=== PATIENT | female | born 1995 | race Caucasian/White ===

== ENCOUNTER 2023-07-12 07:41 | Outpatient (OUT) | payer OTHER, SELFPAY ==
[2023-07-12 08:09] LABS: Basophils Absolute Auto 0.1 10^3/uL (0.0-0.1); Basophils Percent Auto 0.9 % (0.2-2.0); Eosinophils Absolute Auto 0.2 10^3/uL (0.0-0.7); Eosinophils Percent Auto 2.7 % (0.9-7.0); Hematocrit 42.7 % (36.0-48.0); Hemoglobin 13.8 g/dL (12.0-16.0); Immature Granulocytes Abs Auto 0.04 10^3/uL (0.00-0.03); Immature Granulocytes Pct Auto 0.5 % (0.0-0.5); Lymphocytes Absolute Auto 2.6 10^3/uL (1.2-3.8); Lymphocytes Percent Auto 32.8 % (20.5-60.0); Mean Corpuscular HGB Conc 32.3 g/dL (29.9-35.2); Mean Corpuscular Volume 86.6 fL (81.0-99.0); Mean Platelet Volume 10.4 fL (9.5-13.5); Monocytes Absolute Auto 0.5 10^3/uL (0.3-0.8); Monocytes Percent Auto 6.7 % (1.7-12.0); Neutrophils Absolute Auto 4.5 10^3/uL (1.4-6.5); Neutrophils Percent Auto 56.4 % (43.0-75.0); Platelet Count 255 10^3/uL (150-450); Red Blood Count 4.93 10^6/uL (4.20-5.40); Red Cell Distribution Width 12.8 % (11.0-15.0)
[2023-07-12 09:28] LABS: Alanine Aminotransferase 21 U/L (14-59); Albumin Globulin Ratio 1.2; Albumin Level 3.9 g/dL (3.4-5.0); Alkaline Phosphatase 55 U/L (46-116); Anion Gap 11.8; Aspartate Amino Transferase 9 U/L (15-37); BUN Creatinine Ratio 21.1; Carbon Dioxide 26.3 mmol/L (21.0-32.0); Chloride 104 mmol/L (98-107); Estimated GFR (African America >60 (>=60); Estimated GFR (Non-African Ame >60 (>=60); Globulin 3.3 g/dL; Glucose 94 mg/dL (74-106); Potassium 4.1 mmol/L (3.5-5.1); Sodium 138 mmol/L (136-145); Thyroid Stimulating Hormone 0.915 uIU/mL (0.358-3.740); Total Protein 7.2 g/dL (6.4-8.2)
[2023-07-18 18:07] LABS: DHEA, Serum 1067 ng/dL (31-701)
[2023-07-19 20:08] LABS: Copper Level 83 ug/dL (80-158)
[2023-07-20 00:08] LABS: Estrogens, Total 316 pg/mL (.)
[2023-07-20 10:12] LABS: Testosterone 51 ng/dL (13-71)
== END 2023-07-12 07:42 | disposition home or self-care (01) ==
LOC: LAB 07:44
PROVIDERS: PCP Radiology Diagnostic Radiology
DX: F41.9 Anxiety disorder, unspecified (principal); L68.0 Hirsutism; R63.5 Abnormal weight gain
CPT/HCPCS: 36415; 80053; 82525; 82533; 82626; 82672; 84144; 84402; 84403; 84443; 85025

== ENCOUNTER 2023-08-21 11:10 | Outpatient (OUT) | payer OTHER, SELFPAY | END 2023-08-21 11:11 | disposition home or self-care (01) | LOC: PST 11:12 | PROVIDERS: PCP Obstetrics & Gynecology; Visit Provider Obstetrics & Gynecology | DX: Z01.818 Encounter for other preprocedural examination (principal); Z30.2 Encounter for sterilization ==

== ENCOUNTER 2023-08-31 10:21 | Outpatient (OUT) | payer OTHER, SELFPAY ==
--- NOTE | 2023-08-31 | CT_ITS ---
[address] [address] Patient Name: JANAY OZUNA MRN: [id number] date: 1995 Sex: F Assigned Patient Location: CT Current Patient Location: Accession/Order Number: [id number] Exam Date: 08/31/2023 10:45 Report Date: 09/01/2023 01:59 At the request of: DULCE REYNOLDS Procedure: CT abdomen wo/w con EXAMINATION: CT abdomen wo/w con HISTORY: R79.89 ; elevated DHEA COMPARISON: No relevant comparison available. TECHNIQUE: Axial, Coronal, and Sagittal images were obtained without and/or with IV contrast as indicated by examination type. Dose reduction techniques were achieved by using automated exposure control and/or adjustment of mA and/or kV according to patient size and/or use of iterative reconstruction technique FINDINGS: LUNG BASES: No visible pulmonary or pleural disease. LIVER: No enlargement, atrophy, abnormal density, or significant focal lesion. BILIARY: No visible dilatation or calcification. PANCREAS: No lesion, fluid collection, ductal dilatation, or atrophy. SPLEEN: No enlargement or focal lesion. ADRENALS: No mass or enlargement. KIDNEYS: No mass, obstruction, or calcification. BOWEL/MESENTERY: No visible mass, obstruction, or bowel wall thickening. AORTA/VASCULAR: No aneurysm or dissection. RETROPERITONEUM: No mass or adenopathy. ABDOMINAL WALL: No mass or hernia. BONES: No bony lesion or fracture. OTHER: Negative. CT/CT abdomen wo/w con IMPRESSION: 1. Normal CT appearance of the adrenal glands. 2. No suspicious findings. Electronically authenticated by: DANAE WALKER Date: 09/01/2023 01:59
== END 2023-08-31 10:22 | disposition home or self-care (01) ==
LOC: CT 10:21
PROVIDERS: PCP Obstetrics & Gynecology; Visit Provider Internal Medicine
DX: R79.89 Other specified abnormal findings of blood chemistry (principal); E55.9 Vitamin D deficiency, unspecified; Z71.3 Dietary counseling and surveillance; L68.0 Hirsutism
CPT/HCPCS: 74170; Q9967

== ENCOUNTER 2023-09-04 09:05 | Day surgery (SDC) | payer OTHER, SELFPAY ==
[2023-08-21 11:40] VITALS: BP 111/66; PULSE 55; RESP 16; TEMP 36.3; O2SAT 98; BMI 32.6
[2023-09-04] VITALS (8 sets, daily range): BP systolic 113–132; BP diastolic 53–72; PULSE 56–78; RESP 12–20; TEMP 36.3–36.9; O2SAT 94–99; BMI 32.4
[2023-09-04 09:21] LABS: Basophils Absolute Auto 0.1 10^3/uL (0.0-0.1); Basophils Percent Auto 0.6 % (0.2-2.0); Eosinophils Absolute Auto 0.3 10^3/uL (0.0-0.7); Eosinophils Percent Auto 3.3 % (0.9-7.0); Hematocrit 42.5 % (36.0-48.0); Hemoglobin 13.6 g/dL (12.0-16.0); Immature Granulocytes Abs Auto 0.01 10^3/uL (0.00-0.03); Immature Granulocytes Pct Auto 0.1 % (0.0-0.5); Lymphocytes Absolute Auto 2.7 10^3/uL (1.2-3.8); Lymphocytes Percent Auto 31.3 % (20.5-60.0); Mean Corpuscular Hemoglobin 27.9 pg (26.7-34.0); Mean Corpuscular Volume 87.3 fL (81.0-99.0); Mean Platelet Volume 10.1 fL (9.5-13.5); Monocytes Absolute Auto 0.6 10^3/uL (0.3-0.8); Monocytes Percent Auto 7.3 % (1.7-12.0); Neutrophils Absolute Auto 4.9 10^3/uL (1.4-6.5); Neutrophils Percent Auto 57.4 % (43.0-75.0); Platelet Count 270 10^3/uL (150-450); Red Blood Count 4.87 10^6/uL (4.20-5.40); Red Cell Distribution Width 13.2 % (11.0-15.0); White Blood Count 8.6 10^3/uL (4.0-11.0)
[2023-09-04 09:36] LABS: HCG Quantitative <1 mIU/mL
[2023-09-04] MEDS: LACTATED RINGER'S SOLUTION 1,000 ML 50 ML IV ×2 (09:37→11:00)
--- NOTE | 2023-09-04 11:28 | PM.ONB ---
Brief Operative Note Date of procedure: 09/04/23 Pre-op diagnosis: desires permanent sterilization Post-op diagnosis: other (lt ovarian cyst) Procedure: NAME OF PROCEDURE: robot assisted bilateral laparoscopic salpingectomy with lt ovarian cystectomy PROCEDURE: The patient was taken back to the Operating Room where she was given general anesthesia without difficulty. She was then prepped and draped in the normal sterile fashion after being placed in a dorsal lithotomy position. A wet sponge stick was placed into the patient's vagina. Attention was then turned to the patient's abdomen, where a scalpel was used to make a small infraumbilical incision. The S retractors were then used to dissect the underlying layers until the fascia could be seen. The fascia was then grasped with Valerie clamps and tented up. A knife was then used to make a small incision to the fascia. The muscle was identified, at that time two sutures of #0 Vicryl on a GI needle was then used and placed through the fascia. the peritoneum was then identified and entered bluntly. The 10-4 Dwayne was then placed into the patient's abdomen. This was confirmed with direct visualization of the bowel, using the laparoscope. The patient's abdomen was then insufflated using approximately 4 liters of CO2 gas. Survey of the patient's abdomen demonstrated ovaries were normal in appearance as well as both tubes and uterus. A second and third rt and lt lateral robotic ports 8 mm in size, was then placed after the skin incision was made under direct visualization . The robotic arms were engaged The patient's tube on the patient's right side was identified and tented up using a grasper, the vessel sealer apparatus was then used to come across the mesosalpingx from the fimbriated end to the insertion site at the uterus, the tube was then amputated and removed in its entirety. This was done on the contralateral side. The tubes were the removed from the patients abdomen. The ovarian cystectomy performed using the vessel sealer Excellent hemostasis was noted. The lateral ports were then moved under direct visualization with excellent hemostasis. All instruments were removed from the patient's abdomen. The fascia was closed using the #0 Vicryl on GI needle. The skin was closed using 4-0 Vicryl subcuticularly. All instruments were removed from the patient's vagina as well. The patient was taken out of the dorsal lithotomy position and placed in the supine position and taken to recovery in stable condition. Sponge, lap and needle counts were correct x2. Anesthesia: DESMOND Surgeon: Yadiel Shafer Vehicle [employer] Manager: Radha Hodges Estimated blood loss (mL): 10 Pathology: other (tubes and lt cyst wall) Condition: stable Disposition: PACU
== END 2023-09-04 13:07 | disposition home or self-care (01) ==
PROVIDERS: Visit Provider Obstetrics & Gynecology
PROC: (CPT 840; principal; 2023-09-04 10:15)
DX: Z30.2 Encounter for sterilization (principal); N83.202 Unspecified ovarian cyst, left side; E88.819 Insulin resistance, unspecified; Z86.32 Personal history of gestational diabetes; Z68.33 Body mass index [BMI] 33.0-33.9, adult; F41.9 Anxiety disorder, unspecified; Z87.891 Personal history of nicotine dependence
CPT/HCPCS: 58661; 58662; 36415; 84702; 85025; 88302; 88305; J1170; J2704

== ENCOUNTER 2023-11-28 08:00 | Outpatient (OUT) | payer OTHER, SELFPAY ==
--- OUTSIDE RECORDS SUMMARY | 2023-11-28 08:03 | XMS_ITS | CCD ---
Author Name Unknown Address [address] [place] [address] Organization [facility] Care Team Providers Care Tax Processor Name Role Phone ORLANDO LO Unavailable Unavailable WALLY, ORLANDO Unavailable Unavailable Flores, Skylar J Unavailable Unavailable Flores, Skylar J Unavailable Unavailable Wally, Orlando Wallace Unavailable Unavailable Wally, Orlando Wallace Unavailable Unavailable Flores, Skylar J Unavailable Unavailable Flores, Skylar J Unavailable Unavailable Flores, Skylar J Unavailable Unavailable Wally, Orlando Wallace Unavailable Unavailable *SELF, REFERRED Unavailable Unavailable Wally, Orlando Wallace Unavailable Unavailable Wally, Orlando Wallace Unavailable Unavailable Nisha Rodriguez Unavailable Unavailable Radha Salazar Unavailable Unavailable Radha Salazar Unavailable Unavailable Radha Salazar Unavailable Unavailable Wally, Orlando Wallace Unavailable Unavailable Nisha Rodriguez Mary Unavailable Unavailable Unavailable Primary Care Provider Unavailabl e Unavailable Primary Care Provider Unavailabl e LENCOSKI, GERRI D Referring Unavailable LENCOSKI, GERRI D Referring Unavailable LENCOSKI, GERRI D Admitting Unavailable LENCOSKI, GERRI D Attending Unavailable LENCOSKI, GERRI D Referring Unavailable [facility] Primary Care Provider DO Yumiko Brown Attending Provider DO Fely Wood Admit Provider [phone] DO Fely Wood Attending Provider DR ADEOLA HUNTER V Admitting Unavailable DALE, DR ADEOLA Desir Consulting Unavailable DR ADEOLA HUNTER V Attending Unavailable YUMIKO BROWN Admitting Unavailable YUMIKO BROWN Consulting Unavailable YUMIKO BROWN Attending Unavailable [facility], Services Primary Care Unavaila ble Tony Fisher Attending Unavailable Tony Fisher Admitting Unavailable IVANNA GODOY Attending Unavailable IVANNA GODOY Referring Unavailable IVANNA GODOY Attending Unavailable IVANNA GODOY Referring Unavailable KEN JESUS Attending Unavailable IVANNA GODOY Attending Unavailable IVANNA GODOY Referring Unavailable Medications Current Medications Medication Drug Class(es) Dates Sig (Normalized) Sig (Original) acetaminophen 325 mg oral tablet (1 source) Start: 01-13-2021 take 650 mg by mouth every four hours as needed for pain, then take 4000 mg by mouth every twenty-four hours as needed for pain 650 mg, Oral, EVERY 4 HOURS PRN, Pain Mild (1-3), Fever, Fever >100.5 F (38 C), Starting Chelsie 01/13/21 at 1727 Maximum dose of acetaminophen is 4000 mg from all sources in 24 hours. Acetaminophen / HYDROcodone (1 source) Opioid Agonist Start: 01-13-2021 HYDROcodone-acetami nophen (NORCO) 5-325 MG per tablet 1 tablet benzocaine 200 mg/ml / menthol 5 mg/ml topical spray (1 source) Standardized Chemical Allergen Start: 01-13-2021 Topical, PRN, Pain, Starting Chelsie 01/13/21 at 1727 Apply to perineal area. Patient is capable and may self administer at bedside. docusate sodium 100 mg oral capsule (2 sources) Start: 01-13-2021 take 1 capsule by mouth once daily docusate sodium (COLACE, DULCOLAX) 100 MG CAPS Take 100 mg by mouth daily 120 capsule 0 01/14/2021 Active etonogestrel 68 mg drug implant (3 sources) Progestin Start: 09-29-2016 etonogestrel (NEXPLANON) implant IMPL 68 mg ibuprofen 600 mg oral tablet (4 sources) Nonsteroidal Anti-inflammatory Drug Start: 05-06-2022 take 600 mg by mouth every six hours Ibuprofen Active 600 MG PO Q6H May 06, 2022 12:00am Start: 01-13-2021 take 600 mg by mouth every six hours as needed for pain 600 mg, Oral, EVERY 6 HOURS PRN, Pain Mild (1-3), Starting Chelsie 01/13/21 at 1727 Do not crush or break. lansinoh lanolin ointment (1 source) Start: 01-13-2021 Topical, PRN, Dry Skin, nipple discomfort, Starting Chelsie 01/13/21 at 1727, 2 ml ondansetron 2 mg/ml injection (1 source) Serotonin-3 Receptor Antagonist Start: 01-13-2021 4 mg, Intravenous, EVERY 6 HOURS PRN, Nausea, Starting Chelsie 01/13/21 at 1727, Vit-Fe Nki-IN-Dsqpy (GNP DAILY ) 28-0.8 & 440 MG MISC (2 sources) Start: 07-23-2020 take 1 tablet by mouth once daily Vit-Fe Msn-UN-Potnr (GNP DAILY ) 28-0.8 & 440 MG MISC Take 1 tablet by mouth daily 30 each 12 07/23/2020 Active Vit-Fe Fumarate-FA ( VITAMIN) 27-1 MG TABS tablet (1 source) Start: 10-27-2020 take 1 tablet by mouth once daily Vit-Fe Fumarate-FA ( VITAMIN) 27-1 MG TABS tablet TAKE 1 TABLET BY MOUTH DAILY 0 10/27/2020 Active 3 ml sodium chloride 9 mg/ml injection (2 sources) Start: 01-13-2021 10 mL, Intravenous, EVERY 12 HOURS SCHEDULED (2 times per day), First dose on Chelsie 01/13/21 at 2100, Start: 01-13-2021 take 10 mL intravenous route o nce 10 mL, Intravenous, PRN, Line Care, Starting Chelsie 01/13/21 at 1727 After every IV line use Completed/Discontinued Medications Medication Drug Class(es) Dates Sig (Normalized) Sig (Original) calcium chloride 0.0014 meq/ml / potassium chloride 0.004 meq/ml / sodium chloride 0.103 meq/ml / sodium lactate 0.028 meq/ml injectable solution (1 source) Start: 01-12-2021 End: 01-13-2021 lactated ringers infusion guaiFENesin 400 mg oral tablet (1 source) Start: 09-24-2020 End: 01-14-2021 take 1 tablet by mouth every four hours as needed guaiFENesin 400 MG tablet TAKE 1 TABLET BY MOUTH EVERY 4 HOURS NEEDED 0 09/24/2020 01/14/2021 Discontinued (Stop Taking at Discharge) miSOPROStol (CYTOTEC) pre-split tablet TABS 25 mcg (1 source) Start: 01-12-2021 End: 01-13-2021 miSOPROStol (CYTOTEC) pre-split tablet TABS 25 mcg 1 ml nalbuphine hydrochloride 10 mg/ml injection (1 source) Opioid Agonist/Antagoni st Start: 01-13-2021 End: 01-13-2021 nalbuphine (NUBAIN) injection 10 mg oxytocin (PITOCIN) 30 units in 500 mL infusion (1 source) Start: 01-12-2021 End: 01-13-2021 oxytocin (PITOCIN) 30 units in 500 mL infusion Problems Active Problems Problem Classification Problem Date Documented Da te Episodic/Chronic Acute and chronic tonsillitis (1 source) Hypertrophy of tonsils; Translations: [Hypertrophy of tonsils] Onset: 06-24-2018 Chronic Anxiety disorders (1 source) Anxiety disorder, unspecified; Translations: [Anxiety disorder, unspecified] Onset: 07-09-2023 Chronic Menstrual disorders (1 source) Amenorrhea; Translations: [Amenorrhea] Chronic Other endocrine disorders (4 sources) Polycystic ovarian syndrome; Translations: [PCOS (polycystic ovarian syndrome)] Onset: 08-02-2018 08-02-2018 Chronic Other nutritional; endocrine; and metabolic disorders (4 sources) Body mass index 30+ - obesity; Translations: [Obesity (BMI 30-39.9)] Onset: 08-02-2018 08-02-2018 Chronic Other nutritional; endocrine; and metabolic disorders (4 sources) Insulin resistance; Translations: [Insulin resistance] Onset: 08-02-2018 08-02-2018 Other and delivery including normal (5 sources) test positive; Translations: [Normal ] Onset: 01-12-2021 Resolved: 01-14-2021 01-14-2021 Episodic Residual codes; unclassified (1 source) Gestation period, 15 weeks; Translations: [15 weeks gestation of ] Episodic Residual codes; unclassified (1 source) Gestation period, 25 weeks; Translations: [25 weeks gestation of ] Episodic Unclassified (2 sources) Hypertrophy of tonsils / J35.1(ICD-9) Onset: 06-24-2018 Unclassified (1 source) Chronic pharyngitis / J31.2(ICD-9) Onset: 06-24-2018 Past or Other Problems Problem Classification Problem Date Documented Da te Episodic/Chronic Diabetes or abnormal glucose tolerance complicating ; childbirth; or the puerperium (4 sources) Abnormal glucose complicating ; Translations: [ABNORMAL GLUCOSE COMP ] Onset: 02-27-2022 Episodic Genitourinary symptoms and ill-defined conditions (4 sources) Proteinuria; Translations: [Proteinuria affecting in third trimester] Onset: 03-14-2016 Resolved: 04-06-2016 04-06-2016 Episodic Results Test Name Value Interpretation Reference Range Facility Basophils Auto (Bld) [#/Vol] Ordered By: FELY WOOD on 05-05-2022 Basophils (Bld) [#/Vol] 0.0 10*3/uL 0.0-0.2 [facility] Basophils/100 WBC Auto (Bld) Ordered By: FELY WOOD on 05-05-2022 Basophils/100 WBC (Bld) 0.3 % . [facility] Blood hemoglobin measurement (mass/volume)Ordered By: FELY WOOD on 05-05-2022 Hemoglobin (Bld) [Mass/Vol] 11.9 g/dL 11.8-15.4 [facility] Blood leukocytes automated c ount (number/volume)Ordered By: FELY WOOD on 05-05-2022 WBC (Bld) [#/Vol] 14.8 10*3/uL 4.5-11.0 [facility] Eosinophils Auto (Bld) [#/Vo l]Ordered By: FELY WOOD on 05-05-2022 Eosinophils (Bld) [#/Vol] 0.1 10*3/uL 0.0-0.45 [facility] Eosinophils/100 WBC Auto (Bl d)Ordered By: FELY WOOD on 05-05-2022 Eosinophils/100 WBC (Bld) 0.4 % . [facility] Erythrocyte distribution wid th Auto (RBC) [Ratio]Ordered By: FELY WOOD on 05-05-2022 Erythrocyte distribution width (RBC) [Ratio] 14.3 % 11.9-15.3 [facility] Hematocrit Auto (Bld) [Volum e fraction]Ordered By: FELY WOOD on 05-05-2022 Hematocrit (Bld) [Volume fraction] 35.6 % 34.0-46.4 [facility] Laboratory - Hematology and Cell countsOrdered By: FELY WOOD on 05-05-2022 Nucleated RBC/100 WBC (Bld) [Ratio] 0.0 % 0-0.5 [facility] Lymphocytes Auto (Bld) [#/Vo l]Ordered By: FELY WOOD on 05-05-2022 Lymphocytes (Bld) [#/Vol] 2.6 10*3/uL 1.00-4.8 [facility] Lymphocytes/100 WBC Auto (Bl d)Ordered By: FELY WOOD on 05-05-2022 Lymphocytes/100 WBC (Bld) 17.3 % . [facility] MCH Auto (RBC) [Entitic mass ]Ordered By: FELY WOOD on 05-05-2022 MCH (RBC) [Entitic mass] 28.0 pg 24.7-34.3 [facility] MCHC Auto (RBC) [Mass/Vol]Or dered By: FELY WOOD on 05-05-2022 MCHC (RBC) [Mass/Vol] 33.3 g/dL 32.0-35.0 [facility] MCV Auto (RBC) [Entitic vol] Ordered By: FELY WOOD on 05-05-2022 MCV (RBC) [Entitic vol] 84.0 fL 80-100 [facility] Monocytes Auto (Bld) [#/Vol] Ordered By: FELY WOOD on 05-05-2022 Monocytes (Bld) [#/Vol] 1.2 10*3/uL 0.0-0.8 [facility] Monocytes/100 WBC Auto (Bld) Ordered By: FELY WOOD on 05-05-2022 Monocytes/100 WBC (Bld) 8.0 % . [facility] Neutrophils Auto (Bld) [#/Vo l]Ordered By: FELY WOOD on 05-05-2022 Neutrophils (Bld) [#/Vol] 11.0 10*3/uL 1.8-7.7 [facility] Neutrophils/100 WBC Auto (Bl d)Ordered By: FELY WOOD on 05-05-2022 Neutrophils/100 WBC (Bld) 74.0 % . [facility] Platelet mean volume Auto (B ld) [Entitic vol]Ordered By: FELY WOOD on 05-05-2022 Platelet mean volume (Bld) [Entitic vol] 9.0 fL 6.3-10.7 [facility] Platelets Auto (Bld) [#/Vol] Ordered By: FELY WOOD on 05-05-2022 Platelets (Bld) [#/Vol] 239 10*3/uL 150-450 [facility] RBC Auto (Bld) [#/Vol]Ordere d By: FELY WOOD on 05-05-2022 RBC (Bld) [#/Vol] 4.23 10*6/uL 3.60-5.00 [facility] Amphetamine Screen Ql (U)Ord ered By: FELY WOOD on 05-04-2022 Amphetamines Ql (U) Negative Negative [facility] Barbiturates [Presence] in U rineOrdered By: FELY WOOD on 05-04-2022 Barbiturates Ql (U) Negative Negative [facility] Benzodiazepines [Presence] i n UrineOrdered By: FELY WOOD on 05-04-2022 Benzodiazepines Ql (U) Negative Negative [facility] Bilirubin Test strip Ql (U)O rdered By: FELY WOOD on 05-04-2022 Bilirubin Ql (U) Negative Negative [facility] COVID-19 SOFIAOrdered By: ABDOUL WOOD on 05-04-2022 SARS-CoV+SARS-CoV-2 (COVID-19) Ag IA.rapid Ql (Resp) Negative Negative [facility] Comment on above: This is a duplicate Jacqueline SARS Antigen (MALENA) result to be used for statistical tracking purpose only. Color Auto (U)Ordered By: ABDOUL WOOD on 05-04-2022 Color (U) Yellow Yellow [facility] Ketones Auto test strip (U) [Mass/Vol]Ordered By: FELY WOOD on 05-04-2022 Ketones (U) [Mass/Vol] 4+ Negative [facility] Laboratory - Drug toxicology Ordered By: FELY WOOD on 05-04-2022 Opiates Ql (U) Negative Negative [facility] Nitrite Test strip Ql (U)Ord ered By: FELY WOOD on 05-04-2022 Nitrite Ql (U) Negative Negative [facility] No Panel InformationOrdered By: FELY WOOD on 05-04-2022 SARS Antigen (LFIA) [facility] Phencyclidine Screen Ql (U)O rdered By: FELY WOOD on 05-04-2022 Phencyclidine Ql (U) Negative Negative [facility] Comment on above: These are unconfirme d results and should not be used for legal purposes. Drug Cut-Off Concentration: AMPH 1000 ng/mL ARCHIE 200 ng/mL VAIBHAV 200 ng/mL COCM 300 ng/mL OP 300 ng/mL PCP 25 ng/mL Protein Auto test strip (U) [Mass/Vol]Ordered By: FELY WOOD on 05-04-2022 Protein (U) [Mass/Vol] Negative Negative [facility] Reagin Ab [Presence] in Seru m by RPROrdered By: FELY WOOD on 05-04-2022 Reagin Ab RPR Ql (S) Non-Reactive Non Reactive [facility] Comment on above: Performed at: [address] [id number] Social Service Coordinator: Mian Murcia PhD, Phone: [phone] Serum or plasma glucose radha urement (mass/volume)Ordered By: FELY WOOD on 05-04-2022 Glucose [Mass/Vol] 97 mg/dL 70-100 [facility] Comment on above: ADA recommended refe rence range Random Glucose Reference Range is dependent on time and content of last meal. Glucose of more than 200 mg/dL in a nonstressed, ambulatory subject supports the diagnosis of Diabetes Mellitus. Specific gravity Auto test s trip (U) [Rel density]Ordered By: FELY WOOD on 05-04-2022 Specific gravity (U) [Rel density] 1.021 1.001-1.030 [facility] Urine clarity by refractomet ry automatedOrdered By: FELY WOOD on 05-04-2022 Clarity Refractometry automated (U) Clear Clear [facility] Urine cocaine detectionOrder ed By: FELY WOOD on 05-04-2022 Cocaine Ql (U) Negative Negative [facility] Urine glucose measurement by automated test strip (mass/volume)Ordered By: FELY WOOD on 05-04-2022 Glucose Auto test strip (U) [Mass/Vol] Normal mg/dL Normal [facility] Urine hemoglobin detection b y automated test stripOrdered By: FELY WOOD on 05-04-2022 Hemoglobin Auto test strip Ql (U) Negative Negative [facility] Urine leukocyte esterase det ection by automated test stripOrdered By: FELY WOOD on 05-04-2022 Leukocyte esterase Auto test strip Ql (U) Negative Negative [facility] Urobilinogen Auto test strip (U) [Mass/Vol]Ordered By: FELY WOOD on 05-04-2022 Urobilinogen (U) [Mass/Vol] Normal mg/dL Normal [facility] pH Auto test strip (U)Ordere d By: FELY WOOD on 05-04-2022 pH (U) 6.0 [pH] 5.0-9.0 [facility] S. agalactiae Org specific c x Ql (Unsp spec)Ordered By: Yumiko Brown on 04-16-2022 Group B Streptococcus Culture Strep. agalactiae Grp B [facility] GTT 3 HR PREGon 02-27-2022 Glucose [Mass/Vol] 110 mg/dL Critically high 74-106 T [facility] Comment on above: Performed By: #### G TT3P #### [facility] [address] [address] [address] Vianca Goel Glucose [Mass/Vol] 165 mg/dL Normal [facility] Comment on above: Performed By: #### G TT3P #### [facility] [address] [address] [address] Vianca Goel Glucose [Mass/Vol] 125 mg/dL Normal [facility] Comment on above: Performed By: #### G TT3P #### [facility] [id number] Vianca Goel Glucose [Mass/Vol] 100 mg/dL Normal [facility] Comment on above: Performed By: #### G TT3P #### [facility] [address] [address] [address] Vianca Goel Glucose - Gestational Screen on 02-17-2022 Glucose [Mass/Vol] 164 mg/dL High <135 [facility]ward/Stewardess Comment on above: Result Comment: A va lue of 135 mg/dL or greater indicates the need for a full glucose tolerance test performed in the fasting state to determine if the patient has gestational diabetes. Performed By: #### H GB/HCT, GGLU #### [facility] [address] [place], [place] [id number] HGB/HCTon 02-17-2022 Hematocrit (Bld) [Volume fraction] 37.4 % Normal 35.0-47.0 [facility] Comment on above: Performed By: #### H GB/HCT, GGLU #### [facility] [address] [place], [place] [id number] Hemoglobin (Bld) [Mass/Vol] 12.2 g/dL Normal 11.6-15.5 [facility] Comment on above: Performed By: #### H GB/HCT, GGLU #### [facility] [address] [place], [place] [id number] CBCon 01-14-2021 Erythrocyte distribution width (RBC) [Ratio] 14.7 % High 11.5 - 14.5 % [facility] Phone: Hematocrit (Bld) [Volume fraction] 39.3 % 37.0 - 47.0 % [facility] Phone: Hemoglobin (Bld) [Mass/Vol] 13.0 g/dL 12.0 - 16.0 g/dL [facility] Phone: Interpretation and review of laboratory results Abnormal [facility] Phone: MCH (RBC) [Entitic mass] 28.1 pg 27.0 - 31.3 pg [facility] Phone: MCHC (RBC) [Mass/Vol] 33.0 % 33.0 - 37.0 % [facility] Phone: MCV (RBC) [Entitic vol] 85.2 fL 82.0 - 100.0 fL [facility] Phone: Platelets (Bld) [#/Vol] 214 10*3/uL 130 - 400 K/uL [facility] Phone: RBC (Bld) [#/Vol] 4.61 10*6/uL [facility] Phone: WBC (Bld) [#/Vol] 12.8 10*3/uL High 4.8 - 10.8 K/uL [facility] Phone: CBC With Platelet No Differe ntialon 01-14-2021 Erythrocyte distribution width (RBC) [Ratio] 14.7 % Critically high 11.5-14.5 [facility] Comment on above: Performed By: #### C BCND #### [facility] [address] [place] [address] Hematocrit (Bld) [Volume fraction] 39.3 % Normal 37.0-47.0 [facility] Comment on above: Performed By: #### C BCND #### [facility] [address] [place] [address] Hemoglobin (Bld) [Mass/Vol] 13.0 g/dL Normal 12.0-16.0 [facility] Comment on above: Performed By: #### C BCND #### [facility] [address] [place] [address] MCH (RBC) [Entitic mass] 28.1 pg Normal 27.0-31.3 [facility] Comment on above: Performed By: #### C BCND #### [facility] [address] [place] [address] MCHC (RBC) [Mass/Vol] 33.0 % Normal 33.0-37.0 [facility] Comment on above: Performed By: #### C BCND #### [facility] [address] [place] [address] MCV (RBC) [Entitic vol] 85.2 fL Normal 82.0-100.0 [facility] Comment on above: Performed By: #### C BCND #### [facility] [address] [place] [address] Platelets (Bld) [#/Vol] 214 10*3/uL Normal 130-400 [facility] Comment on above: Performed By: #### C BCND #### [facility] [address] [place] [address] RBC (Bld) [#/Vol] 4.61 10*6/uL Normal 4.20-5.40 [facility] Comment on above: Performed By: #### C BCND #### [facility] [address] [place] [address] WBC (Bld) [#/Vol] 12.8 10*3/uL Critically high 4.8-10.8 [facility] Comment on above: Performed By: #### C BCND #### [facility] [address] [place] [address] RPRon 01-13-2021 Reagin Ab RPR Ql (S) Non-reactive Normal Non-reacti [facility] Comment on above: Performed By: #### R [place] #### [facility] [address] [place] [address] Reagin Ab RPR Ql (S) Non-reactive Non-reactive [facility] [employer] Work Phone: CBC With Platelet and Differ entialon 01-12-2021 Basophils (Bld) [#/Vol] 0.0 10*3/uL Normal 0.0-0.2 [facility] Comment on above: Performed By: #### C BCWD #### [facility] [address] [place] [address] Basophils/100 WBC (Bld) 0.3 % Normal [facility] Comment on above: Performed By: #### C BCWD #### [facility] [address] [place] [address] Eosinophils (Bld) [#/Vol] 0.1 10*3/uL Normal 0.0-0.7 [facility] Comment on above: Performed By: #### C BCWD #### [facility] [address] [place] [address] Eosinophils/100 WBC (Bld) 1.0 % Normal [facility] Comment on above: Performed By: #### C BCWD #### [facility] [address] [place] [address] Erythrocyte distribution width (RBC) [Ratio] 14.4 % Normal 11.5-14.5 [facility] Comment on above: Performed By: #### C BCWD #### [facility] [address] [place] [address] Hematocrit (Bld) [Volume fraction] 41.1 % Normal 37.0-47.0 [facility] Comment on above: Performed By: #### C BCWD #### [facility] [address] [place] [address] Hemoglobin (Bld) [Mass/Vol] 13.6 g/dL Normal 12.0-16.0 [facility] Comment on above: Performed By: #### C BCWD #### [facility] [address] [place] [address] Lymphocytes (Bld) [#/Vol] 2.0 10*3/uL Normal 1.0-4.8 [facility] Comment on above: Performed By: #### C BCWD #### [facility] [address] [place] [address] Lymphocytes/100 WBC (Bld) 21.1 % Normal [facility] Comment on above: Performed By: #### C BCWD #### [facility] [address] [place] [address] MCH (RBC) [Entitic mass] 28.5 pg Normal 27.0-31.3 [facility] Comment on above: Performed By: #### C BCWD #### [facility] [address] [place] [address] MCHC (RBC) [Mass/Vol] 33.1 % Normal 33.0-37.0 [facility] Comment on above: Performed By: #### C BCWD #### [facility] [address] [place] [address] MCV (RBC) [Entitic vol] 85.9 fL Normal 82.0-100.0 [facility] Comment on above: Performed By: #### C BCWD #### [facility] [address] [place] [address] Monocytes (Bld) [#/Vol] 0.7 10*3/uL Normal 0.2-0.8 [facility] Comment on above: Performed By: #### C BCWD #### [facility] [address] [place] [address] Monocytes/100 WBC (Bld) 7.5 % Normal [facility] Comment on above: Performed By: #### C BCWD #### [facility] [address] [place] [address] Neutrophils (Bld) [#/Vol] 6.7 10*3/uL Critically high 1.4-6.5 [facility] Comment on above: Performed By: #### C BCWD #### [facility] [address] [place] [address] Neutrophils/100 WBC (Bld) 70.1 % Normal [facility] Comment on above: Performed By: #### C BCWD #### [facility] [address] [place] [address] Platelets (Bld) [#/Vol] 253 10*3/uL Normal 130-400 [facility] Comment on above: Performed By: #### C BCWD #### [facility] [address] [place] [address] RBC (Bld) [#/Vol] 4.79 10*6/uL Normal 4.20-5.40 [facility] Comment on above: Performed By: #### C BCWD #### [facility] [address] [place] [address] WBC (Bld) [#/Vol] 9.6 10*3/uL Normal 4.8-10.8 [facility] Comment on above: Performed By: #### C BCWD #### [facility] [address] [place] [address] CBC auto differentialon 12-15 Basophils (Bld) [#/Vol] 0.0 10*3/uL 0.0 - 0.2 K/uL [facility] Phone: Basophils/100 WBC (Bld) 0.3 % [facility] Phone: Eosinophils (Bld) [#/Vol] 0.1 10*3/uL 0.0 - 0.7 K/uL [facility] Phone: Eosinophils/100 WBC (Bld) 1 % [facility] Phone: Erythrocyte distribution width (RBC) [Ratio] 14.4 % 11.5 - 14.5 % [facility] Phone: Hematocrit (Bld) [Volume fraction] 41.1 % 37.0 - 47.0 % [facility] Phone: Hemoglobin (Bld) [Mass/Vol] 13.6 g/dL 12.0 - 16.0 g/dL [facility] Phone: Interpretation and review of laboratory results Abnormal [facility] Phone: Lymphocytes (Bld) [#/Vol] 2.0 10*3/uL 1.0 - 4.8 K/uL [facility] Phone: Lymphocytes/100 WBC (Bld) 21.1 % [facility] Phone: MCH (RBC) [Entitic mass] 28.5 pg 27.0 - 31.3 pg [facility] Phone: MCHC (RBC) [Mass/Vol] 33.1 % 33.0 - 37.0 % [facility] Phone: MCV (RBC) [Entitic vol] 85.9 fL 82.0 - 100.0 fL [facility] Phone: Monocytes (Bld) [#/Vol] 0.7 10*3/uL 0.2 - 0.8 K/uL [facility] Phone: Monocytes/100 WBC (Bld) 7.5 % [facility] Phone: Neutrophils Absolute 6.7 K/uL High 1.4 - 6 .5 K/uL [facility] Phone: Neutrophils/100 WBC (Bld) 70.1 % [facility] Phone: Platelets (Bld) [#/Vol] 253 10*3/uL 130 - 400 K/uL [facility] Phone: RBC (Bld) [#/Vol] 4.79 10*6/uL [facility] Phone: WBC (Bld) [#/Vol] 9.6 10*3/uL 4.8 - 10.8 K/uL [facility] Phone: COVID-19on 01-12-2021 COVID-19, NAAT Not Detected Normal Not Detect [facility] Comment on above: Result Comment: Marley james NAAT: Negative results should be treated as presumptive and, if inconsistent with clinical signs and symptoms or necessary for patient management, should be tested with an alternative molecular assay. Negative results do not preclude SARS-CoV-2 infection and should not be used as the sole basis for patient management decisions. This test has been authorized by the FDA under an Emergency Use Authorization (EUA) for use by authorized laboratories. Fact sheet for Healthcare Providers: https://www.fda.gov/media/605480/download Fact sheet for Patients: https://www.fda.gov/media/516111/download METHODOLOGY: Isothermal Nucleic Acid Amplification Performed By: #### C OVRG #### [facility] [address] [place] [address] COVID-19, Rapidon 01-12-2021 SARS-CoV-2, NAAT Not Detected Not Detected [facility] [employer] Phone: Comment on above: Rapid NAAT: Negative results should be treated as presumptive and, if inconsistent with clinical signs and symptoms or necessary for patient management, should be tested with an alternative molecular assay. Negative results do not preclude SARS-CoV-2 infection and should not be used as the sole basis for patient management decisions. This test has been authorized by the FDA under an Emergency Use Authorization (EUA) for use by authorized laboratories. Fact sheet for Healthcare Providers: https://www.fda.gov/media/024861/download Fact sheet for Patients: https://www.fda.gov/media/710204/download METHODOLOGY: Isothermal Nucleic Acid Amplification Comprehensive Metabolic Pane rosario 01-12-2021 Anion gap [Moles/Vol] 12 mmol/L Normal 9-15 [facility] Comment on above: Performed By: #### C MP ####[facility] [place] [phone] Albumin [Mass/Vol] 3.3 g/dL Low 3.5-4.6 [facility] Comment on above: Performed By: #### C MP ####[facility] [place] [phone] ALP [Catalytic activity/Vol] 118 U/L Normal 40-130 [facility] Comment on above: Performed By: #### C MP ####[facility] [place] [phone] ALT [Catalytic activity/Vol] 20 U/L Normal 0-33 [facility] Comment on above: Performed By: #### C MP ####[facility] [place] [phone] AST [Catalytic activity/Vol] 30 U/L Normal 0-35 [facility] Comment on above: Performed By: #### C MP ####[facility] [facility] Centerain [place] [phone] Bilirubin [Mass/Vol] 0.5 mg/dL Normal 0.2-0.7 [facility] Comment on above: Performed By: #### C MP ####[facility] [place] [phone] Calcium [Mass/Vol] 9.0 mg/dL Normal 8.5-9.9 [facility] Comment on above: Performed By: #### C MP ####[facility] [place] [phone] Chloride [Moles/Vol] 107 mmol/L Normal 95-107 [facility] Comment on above: Performed By: #### C MP ####[facility] [place] [phone] CO2 [Moles/Vol] 17 mmol/L Low 20-31 [facility] Comment on above: Performed By: #### C MP ####[facility] [place] [phone] Creatinine [Mass/Vol] 0.40 mg/dL Low 0.50-0.90 [facility] Comment on above: Performed By: #### C MP ####[facility] [facility] Centerain [place] [phone] GFR/1.73 sq M predicted among blacks MDRD (S/P/Bld) [Vol rate/Area] mL/min/{1.73_m2} Normal >60 [facility] Comment on above: Result Comment: >60 mL/min/1.73m2 EGFR, calc. for ages 18 and older using the MDRD formula (not corrected for weight), is valid for stable renal function. Performed By: #### C MP ####[facility] [facility] [phone] GFR/1.73 sq M.predicted MDRD (S/P/Bld) [Vol rate/Area] mL/min/{1.73_m2} Normal >60 [facility] Comment on above: Result Comment: >60 mL/min/1.73m2 EGFR, calc. for ages 18 and older using the MDRD formula (not corrected for weight), is valid for stable renal function. Performed By: #### C MP ####[facility] [facility] [phone] Globulin (S) [Mass/Vol] 3.3 g/dL Normal 2.3-3.5 [facility] Comment on above: Performed By: #### C MP ####[facility] [place] [phone] Glucose [Mass/Vol] 75 mg/dL Normal 70-99 [facility] Comment on above: Performed By: #### C MP ####[facility] [facility] [phone] Potassium [Moles/Vol] 4.0 mmol/L Normal 3.4-4.9 [facility] Comment on above: Performed By: #### C MP ####[facility] [place] [phone] Protein [Mass/Vol] 6.6 g/dL Normal 6.3-8.0 [facility] Comment on above: Performed By: #### C MP ####[facility] [facility] [address] [phone] Sodium [Moles/Vol] 136 mmol/L Normal 135-144 [facility] Comment on above: Performed By: #### C MP ####[facility] [facility] [phone] Urea nitrogen [Mass/Vol] 9 mg/dL Normal 6-20 [facility] Comment on above: Performed By: #### C MP ####[facility] [facility] [phone] Comprehensive metabolic pane rosario 01-12-2021 Albumin [Mass/Vol] 3.3 g/dL Low 3.5 - 4.6 g/dL [facility] Work Phone: ALP [Catalytic activity/Vol] 118 U/L 40 - 130 U/L [facility] Work Phone: ALT [Catalytic activity/Vol] 20 U/L 0 - 33 U/L [facility] Work Phone: Anion gap [Moles/Vol] 12 mmol/L [facility] Work Phone: AST [Catalytic activity/Vol] 30 U/L 0 - 35 U/L [facility] Work Phone: Bilirubin Ql (U) 0.5 mg/dL 0.2 - 0.7 mg/dL [facility] Work Phone: Calcium [Mass/Vol] 9.0 mg/dL 8.5 - 9.9 mg/dL [facility] Work Phone: Chloride [Moles/Vol] 107 mmol/L [facility] Work Phone: CO2 [Moles/Vol] 17 mmol/L Low [facility] Work Phone: Creatinine [Mass/Vol] 0.4 mg/dL Low 0.50 - 0.90 mg/dL [facility] Work Phone: GFR >60.0 >60 [facility] [employer] Work Phone: Comment on above: >60 mL/min/1.73m2 EG FR, calc. for ages 18 and older using the MDRD formula (not corrected for weight), is valid for stable renal function. GFR Non- >60.0 >60 [employer] Phone: Comment on above: >60 mL/min/1.73m2 EG FR, calc. for ages 18 and older using the MDRD formula (not corrected for weight), is valid for stable renal function. Globulin (S) [Mass/Vol] 3.3 g/dL 2.3 - 3.5 g/dL [employer] Phone: Glucose [Mass/Vol] 75 mg/dL 70 - 99 mg/dL [employer] Phone: Interpretation and review of laboratory results Abnormal [employer] Phone: Potassium [Moles/Vol] 4.0 mmol/L [employer] Phone: Protein [Mass/Vol] 6.6 g/dL 6.3 - 8.0 g/dL [employer] Phone: Sodium [Moles/Vol] 136 mmol/L [employer] Phone: Urea nitrogen [Mass/Vol] 9 mg/dL 6 - 20 mg/dL [employer] Phone: Drug screen multi urineon Amphetamine Screen, Urine Negative Negative <1000 ng/mL [employer] Phone: Barbiturate Screen, Ur Negative Negat ryan < 200 ng/mL [employer] Phone: Benzodiazepine Screen, Urine Negative Negative < 200 ng/mL [employer] Phone: Cannabinoid Scrn, Ur Negative Negativ e < 50 ng/mL [employer] Phone: Cocaine Metabolite Screen, Urine Negative Negative < 300 ng/mL [employer] Phone: Drug Screen Comment: see below [employer] Phone: Comment on above: This method is a scr eening test to detect only these drug classes as part of a medical workup. Confirmatory testing by another method should be ordered if clinically indicated. Methadone Screen, Urine Negative Negative <300 ng/mL [employer] Phone: Opiate Scrn, Ur Negative Negative < 300 ng/mL [employer] Work Phone: Oxycodone Urine Negative Negative <10 0 ng/mL [employer] Phone: PCP Screen, Urine Negative Negative < 25 ng/mL [employer] Phone: Propoxyphene Scrn, Ur Negative Negati ve <300 ng/mL [employer] Phone: Hepatitis B Surface Agon Hepatitis B Surface Ag Interp Non-reactive Normal [facility] Comment on above: Performed By: #### H BSG ####[facility] [facility] [phone] Hepatitis B Surface Antigeno n 01-12-2021 Hep B S Ag Interp Non-reactive [employer] Work Phone: Microscopic Urinalysison Bacteria, UA Negative Negative /HPF [facility] Work Phone: Epithelial Cells, UA 0-2 [employer] Work Phone: Hyaline Casts, UA 0-1 [facility] Work Phone: Interpretation and review of laboratory results Abnormal [employer] Work Phone: RBC (U) [#/Vol] 50-100 Abnormal [facility] Work Phone: WBC, UA 3-5 [employer] Work Phone: Rubella Ab, IgGon 01-12-2021 Rubella Ab, IgG 5.7 IU/mL Normal [facility] Comment on above: Result Comment: Equi vocal results repeat testing in 10-14 days maybe helpful. Default Normal Ranges >=10 Presumed Immune <10 Presumed Not immune Performed By: #### R UBEL #### [facility] [address] [facility] [address] Rubella antibody, IgGon 12-15 Rubella Antibody IgG 5.7 IU/mL [employer] Phone: Comment on above: Equivocal results re peat testing in 10-14 days maybe helpful. Default Normal Ranges >=10 Presumed Immune <10 Presumed Not immune TYPE AND SCREENon 01-12-2021 ABO/Rh Positive [employer] Phone: Type and Screen Capture 3 sc rn cellon 01-12-2021 Type and Screen Capture 3 scrn cell PATIENT: ANTHONY Nelson LOC: [facility],032, BILL# : [id number] : 1995 SEX: F ORDERED BY: JARON JIMENEZ ORDERED : 01/12/2021 19:34 COLLECTED: 01/12/2021 20:39 ORDER : [id number] RECEIVED : 01/12/2021 20:39 TEST NAME RESULT UNITS RANGES ABN FL ST ABORH Capture O POS F Antibody 3 Cell Scrn Captu NEG F Normal [facility] Comment on above: Performed By: #### T S3C #### [facility] [address] [place] [phone] UR Drugs of Abuse Panelon Drug Screen Comment see below [facility] Comment on above: Result Comment: This method is a screening test to detect only these drug classes as part of a medical workup. Confirmatory testing by another method should be ordered if clinically indicated. Performed By: #### U DRGS ####[facility] [facility] RdS[facility] Centerain [place] [phone] UR Amphetamines Screen Negative Normal Negative < [facility] Comment on above: Performed By: #### U DRGS ####[facility] RdS[facility] Centerain [place] [phone] UR Barbiturates Screen Negative Normal Negative < [facility] Comment on above: Performed By: #### U DRGS ####[facility] [facility] RdSchoharie [place] [phone] UR Benzo Screen Negative Normal Negative < [facility] Comment on above: Performed By: #### U DRGS ####[facility] [facility] [place] [phone] UR Cannabinoids Screen Negative Normal Negative < [facility] Comment on above: Performed By: #### U DRGS ####[facility] [facility] [place] [phone] UR Cocaine Screen Negative Normal Negative < [facility] Comment on above: Performed By: #### U DRGS ####[facility] [facility] [place] [phone] UR Methadone Screen Negative Normal Negative < [facility] Comment on above: Performed By: #### U DRGS ####[facility] [facility] [address] [facility] Center[facility] [place] [phone] UR Opiates Screen Negative Normal Negative < [facility] Comment on above: Performed By: #### U DRGS ####[facility] [facility] [address] [facility] Center[address] [place] [phone] UR Oxycodone Screen Negative Normal Negative < [facility] Comment on above: Performed By: #### U DRGS ####[facility] [facility] RdS[address] [facility] Centerain [place] [phone] UR PCP Screen Negative Normal Negative < [facility] Comment on above: Performed By: #### U DRGS ####[facility] [place] [phone] UR Propoxyphene Screen Negative Normal Negative < Me [facility] Comment on above: Performed By: #### U DRGS ####[facility] [place] [phone] Urinalysison 01-12-2021 Bilirubin Urine Negative Negative [facility] Work Phone: Blood, Urine LARGE Abnormal Negative [facility] Work Phone: Clarity, UA Clear Clear [facility] Work Phone: Color, UA Yellow Straw/Yellow [facility] Work Phone: Glucose, Ur Negative Negative mg/dL [facility] Work Phone: Interpretation and review of laboratory results Abnormal [facility] Work Phone: Ketones Ql (U) Negative Negative mg/dL [facility] Work Phone: Leukocyte esterase Test strip Ql (U) Negative Negative [facility] Work Phone: Nitrite, Urine Negative Negative [facility] Work Phone: pH, UA 6.0 [facility] Work Phone: Protein (U) [Mass/Vol] Negative Negat ryan mg/dL [facility] Work Phone: Specific [place], UA 1.020 [facility] Work Phone: Urobilinogen, Urine 0.2 <2.0 E.U./dL [facility] Work Phone: Urinalysis, reflex to micros copicon 01-12-2021 Bilirubin Ql (U) Negative Normal Negative [facility] Comment on above: Performed By: #### U A #### [facility] [address] [place] [address] Clarity (U) Clear Normal Clear [facility] Comment on above: Performed By: #### U A #### [facility] [address] [place] [address] Color (U) Yellow Normal Straw/[place] [facility] Comment on above: Performed By: #### U A #### [facility] [address] [place] [address] Glucose Ql (U) Negative Normal Negative [facility] Comment on above: Performed By: #### U A #### [facility] [address] [place] [address] Hemoglobin Ql (U) LARGE Abnormal Negative [facility] Comment on above: Performed By: #### U A #### [facility] [address] [place] [address] Ketones Ql (U) Negative Normal Negative [facility] Comment on above: Performed By: #### U A #### [facility] [address] [place] [address] Leukocyte esterase Test strip Ql (U) Negative Normal Negative [facility] Comment on above: Performed By: #### U A #### [facility] [address] [place] [address] Nitrite Ql (U) Negative Normal Negative [facility] Comment on above: Performed By: #### U A #### [facility] [address] [place] [address] pH (U) 6.0 [pH] Normal 5.0-9.0 [facility] Comment on above: Performed By: #### U A #### [facility] [address] [place] [address] Protein Ql (U) Negative Normal Negative [facility] Comment on above: Performed By: #### U A #### [facility] [address] [place] [address] Specific gravity (U) [Rel density] 1.020 Normal 1.005-1.03 [facility] Comment on above: Performed By: #### U A #### [facility] [address] [place] [address] Urobilinogen Qn (U) 0.2 {Paulie'U}/dL Normal < 2.0 [facility] Comment on above: Performed By: #### U A #### [facility] [address] [place] [address] Urine Microscopicon 01-13-20 21 Bacteria LM.HPF (Urine sed) [#/Area] Negative Normal Negative [facility] Comment on above: Performed By: #### U CARROLL #### [facility] [address] [place] [address] RBC (U) [#/Vol] 50-100 Abnormal 0-5 [facility] Comment on above: Performed By: #### U CARROLL #### [facility] [address] [place] [address] Urine Epithelial Cells Auto 0-2 Normal 0-5 [facility] Comment on above: Performed By: #### U CARROLL #### [facility] [address] [place] [address] Urine Hyaline Casts Auto 0-1 Normal 0-5 [facility] Comment on above: Performed By: #### U CARROLL #### [facility] [address] [place] [address] Urine WBC Auto 3-5 Normal 0-5 [facility] Comment on above: Performed By: #### U CARROLL #### [facility] [address] [place] [address] COVID-19, NAAon 01-05-2021 COVID-19, LARISA Not Detected Normal Not Detect [facility] Comment on above: Result Comment: This nucleic acid amplification test was developed and its performance characteristics determined by [employer]. Nucleic acid amplification tests include RT-PCR and TMA. This test has not been FDA cleared or approved. This test has been authorized by FDA under an Emergency Use Authorization (EUA). This test is only authorized for the duration of time the declaration that circumstances exist justifying the authorization of the emergency use of in vitro diagnostic tests for detection of SARS-CoV-2 virus and/or diagnosis of COVID-19 infection under section 564(b)(1) of the Act, 21 U.S.C. 360bbb-3(b) (1), unless the authorization is terminated or revoked sooner. When diagnostic testing is negative, the possibility of a false negative result should be considered in the context of a patient's recent exposures and the presence of clinical signs and symptoms consistent with COVID-19. An individual without symptoms of COVID-19 and who is not shedding SARS-CoV-2 virus would expect to have a negative (not detected) result in this assay. Performed at: [facility] Lab[address] [id number] Social Service Coordinator: Mian Murcia PhD, Phone: [phone] Performed By: #### T SH #### [facility] [address] [facility] [phone] COVID-19, NAAon 01-04-2021 Source Swab Anterior nares Normal [facility] Comment on above: Performed By: #### T SH #### [facility] [address] [facility] [address] Culture, Group B Strepon Culture, Group B Strep ORDERED BY: GERRI SALMERON SOURCE: Vagina Genital COLLECTED: 12/22/20 17:49 ANTIBIOTICS AT MALIKA.: RECEIVED : 12/22/20 19:22 Culture, Group B Strep FINAL 12/24/20 11:32 Heavy growth BHS Group B (Strep agalacticae) No further workup Susceptibility testing of penicillin and other beta lactams is not necessary for beta hemolytic Streptococci since resistant strains have not been identified. (CLSI M100) Normal [facility] Comment on above: Performed By: #### T SH #### [facility] [address] [facility] [address] Otheron 11-04-2020 ULTRASOUND CONFIRMS A SINGLE LIVING INTRAUTERINE AT 29 WEEKS 5 DAYS +/- 3 WEEKS. ADDITIONAL DATING PARAMETERS AND LIMITATIONS DETAILED ABOVE. [facility], [place] Sonogram #: 1 Presentation: Cephalic GS: CRL: BPD: 7.37 Wks: 29w 4d HC: 27.74 Wks: 30w 3d AC: 25.38 Wks: 29w 4d FL: 5.55 Wks: 29w 2d HC/AC: 1.09 Anatomy Cerebral Ventricles Posterior Fossa Spinal Column Right Kidney V renal pelvis 4-5mm Left Kidney V renal pelvis 2-3mm Bladder V 4 Chamber Heart V Diaphragm Stomach V Cord Insertion 3 Vessel Cord 12 Long Bones Placental Location: Anterior fundal Placental Grade: I/II SOURAV: 12.6cm Cervical Length: 4.0 cm(TV) Dating Date: 11/04/20 Wks by 1st US: 28w 1d Wks at this US: 29w 5d+/-3w Weight (>28 Wks): 1410 +/- 206g LMP: Wks by LMP: Due date by LMP: Due date by US: 01/26/21 Heart Rate: 128 bpm Right Ovary: Left Ovary: EXAMINATION: US OB 1 OR MORE FETUS LIMITED, US OB TRANSVAGINAL CLINICAL HISTORY: 25-year-old patient in the late second early third trimester. Supervision of normal . COMPARISONS: ultrasound 06/29/2020 FINDINGS: Transabdominal ultrasound of the gravid uterus was performed. Transvaginal imaging at in this patient who was not adequately prepped the transabdominal study. There is a single living intrauterine with cephalic presentation. Placenta is located along the anterior aspect of the uterus. There are a few small placental hypoechogenicities. No ultrasound signs of previa or abruption. Amniotic fluid index is within normal limits at 12.6 cm. Cervix on the transvaginal views does appear closed measuring 4 cm in length. Ultrasound criteria correspond to a 29 week 5 day gestation +/- 3 weeks. When compared to the first trimester ultrasound fetus should be 28 weeks 1 day. Estimated weight is 1410 +/- 206 g. LMP percentile is 87%. The right renal pelvis measures 4 to 5 mm in AP dimension. Left renal pelvis measures 2 to 3 mm in AP dimension. Otherwise no gross anomalies appreciated within the kidneys, bladder, four-chamber view of the heart, or stomach. Complete anatomic survey was not performed at this late stage of gestation. heart rate of 128 bpm is documented. [employer]- [place], [place] Jens, [employer] Incoming Radiant Results From [employer] - 11/04/2020 5:03 PM EST Sonogram #: 1 Presentation: Cephalic GS: CRL: BPD: 7.37 Wks: 29w 4d HC: 27.74 Wks: 30w 3d AC: 25.38 Wks: 29w 4d FL: 5.55 Wks: 29w 2d HC/AC: 1.09 Anatomy Cerebral Ventricles Posterior Fossa Spinal Column Right Kidney V renal pelvis 4-5mm Left Kidney V renal pelvis 2-3mm Bladder V 4 Chamber Heart V Diaphragm Stomach V Cord Insertion 3 Vessel Cord 12 Long Bones Placental Location: Anterior fundal Placental Grade: I/II SOURAV: 12.6cm Cervical Length: 4.0 cm(TV) Dating Date: 11/04/20 Wks by 1st US: 28w 1d Wks at this US: 29w 5d+/-3w Weight (>28 Wks): 1410 +/- 206g LMP: Wks by LMP: Due date by LMP: Due date by US: 01/26/21 Heart Rate: 128 bpm Right Ovary: Left Ovary: EXAMINATION: US OB 1 OR MORE FETUS LIMITED, US OB TRANSVAGINAL CLINICAL HISTORY: 25-year-old patient in the late second early third trimester. Supervision of normal . COMPARISONS: ultrasound 06/29/2020 FINDINGS: Transabdominal ultrasound of the gravid uterus was performed. Transvaginal imaging at in this patient who was not adequately prepped the transabdominal study. There is a single living intrauterine with cephalic presentation. Placenta is located along the anterior aspect of the uterus. There are a few small placental hypoechogenicities. No ultrasound signs of previa or abruption. Amniotic fluid index is within normal limits at 12.6 cm. Cervix on the transvaginal views does appear closed measuring 4 cm in length. Ultrasound criteria correspond to a 29 week 5 day gestation +/- 3 weeks. When compared to the first trimester ultrasound fetus should be 28 weeks 1 day. Estimated weight is 1410 +/- 206 g. LMP percentile is 87%. The right renal pelvis measures 4 to 5 mm in AP dimension. Left renal pelvis measures 2 to 3 mm in AP dimension. Otherwise no gross anomalies appreciated within the kidneys, bladder, four-chamber view of the heart, or stomach. Complete anatomic survey was not performed at this late stage of gestation. heart rate of 128 bpm is documented. IMPRESSION: ULTRASOUND CONFIRMS A SINGLE LIVING INTRAUTERINE AT 29 WEEKS 5 DAYS +/- 3 WEEKS. ADDITIONAL DATING PARAMETERS AND LIMITATIONS DETAILED ABOVE. [place], [place] US OB 1 OR MORE FETUS LIMITE Don 11-04-2020 US OB 1 OR MORE FETUS LIMITED Sonogram #: 1 Presentation: Cephalic GS: CRL: BPD: 7.37 Wks: 29w 4d HC: 27.74 Wks: 30w 3d AC: 25.38 Wks: 29w 4d FL: 5.55 Wks: 29w 2d HC/AC: 1.09 Anatomy Cerebral Ventricles Posterior Fossa Spinal Column Right Kidney V renal pelvis 4-5mm Left Kidney V renal pelvis 2-3mm Bladder V 4 Chamber Heart V Diaphragm Stomach V Cord Insertion 3 Vessel Cord 12 Long Bones Placental Location: Anterior fundal Placental Grade: I/II SOURAV: 12.6cm Cervical Length: 4.0 cm(TV) Dating Date: 11/04/20 Wks by 1st US: 28w 1d Wks at this US: 29w 5d+/-3w Weight (>28 Wks): 1410 +/- 206g LMP: Wks by LMP: Due date by LMP: Due date by US: 01/26/21 Heart Rate: 128 bpm Right Ovary: Left Ovary: EXAMINATION: US OB 1 OR MORE FETUS LIMITED, US OB TRANSVAGINAL CLINICAL HISTORY: 25-year-old patient in the late second early third trimester. Supervision of normal . COMPARISONS: ultrasound 06/29/2020 FINDINGS: Transabdominal ultrasound of the gravid uterus was performed. Transvaginal imaging at in this patient who was not adequately prepped the transabdominal study. There is a single living intrauterine with cephalic presentation. Placenta is located along the anterior aspect of the uterus. There are a few small placental hypoechogenicities. No ultrasound signs of previa or abruption. Amniotic fluid index is within normal limits at 12.6 cm. Cervix on the transvaginal views does appear closed measuring 4 cm in length. Ultrasound criteria correspond to a 29 week 5 day gestation +/- 3 weeks. When compared to the first trimester ultrasound fetus should be 28 weeks 1 day. Estimated weight is 1410 +/- 206 g. LMP percentile is 87%. The right renal pelvis measures 4 to 5 mm in AP dimension. Left renal pelvis measures 2 to 3 mm in AP dimension. Otherwise no gross anomalies appreciated within the kidneys, bladder, four-chamber view of the heart, or stomach. Complete anatomic survey was not performed at this late stage of gestation. heart rate of 128 bpm is documented. IMPRESSION: ULTRASOUND CONFIRMS A SINGLE LIVING INTRAUTERINE AT 29 WEEKS 5 DAYS +/- 3 WEEKS. ADDITIONAL DATING PARAMETERS AND LIMITATIONS DETAILED ABOVE. Interpreted by: Lauren Winters MD Signed by: Lauren Winters MD 11/04/20 Final result Normal [facility] US OB TRANSVAGINALon 021 US OB TRANSVAGINAL Sonogram #: 1 Presentation: Cephalic GS: CRL: BPD: 7.37 Wks: 29w 4d HC: 27.74 Wks: 30w 3d AC: 25.38 Wks: 29w 4d FL: 5.55 Wks: 29w 2d HC/AC: 1.09 Anatomy Cerebral Ventricles Posterior Fossa Spinal Column Right Kidney V renal pelvis 4-5mm Left Kidney V renal pelvis 2-3mm Bladder V 4 Chamber Heart V Diaphragm Stomach V Cord Insertion 3 Vessel Cord 12 Long Bones Placental Location: Anterior fundal Placental Grade: I/II SOURAV: 12.6cm Cervical Length: 4.0 cm(TV) Dating Date: 11/04/20 Wks by 1st US: 28w 1d Wks at this US: 29w 5d+/-3w Weight (>28 Wks): 1410 +/- 206g LMP: Wks by LMP: Due date by LMP: Due date by US: 01/26/21 Heart Rate: 128 bpm Right Ovary: Left Ovary: EXAMINATION: US OB 1 OR MORE FETUS LIMITED, US OB TRANSVAGINAL CLINICAL HISTORY: 25-year-old patient in the late second early third trimester. Supervision of normal . COMPARISONS: ultrasound 06/29/2020 FINDINGS: Transabdominal ultrasound of the gravid uterus was performed. Transvaginal imaging at in this patient who was not adequately prepped the transabdominal study. There is a single living intrauterine with cephalic presentation. Placenta is located along the anterior aspect of the uterus. There are a few small placental hypoechogenicities. No ultrasound signs of previa or abruption. Amniotic fluid index is within normal limits at 12.6 cm. Cervix on the transvaginal views does appear closed measuring 4 cm in length. Ultrasound criteria correspond to a 29 week 5 day gestation +/- 3 weeks. When compared to the first trimester ultrasound fetus should be 28 weeks 1 day. Estimated weight is 1410 +/- 206 g. LMP percentile is 87%. The right renal pelvis measures 4 to 5 mm in AP dimension. Left renal pelvis measures 2 to 3 mm in AP dimension. Otherwise no gross anomalies appreciated within the kidneys, bladder, four-chamber view of the heart, or stomach. Complete anatomic survey was not performed at this late stage of gestation. heart rate of 128 bpm is documented. IMPRESSION: ULTRASOUND CONFIRMS A SINGLE LIVING INTRAUTERINE AT 29 WEEKS 5 DAYS +/- 3 WEEKS. ADDITIONAL DATING PARAMETERS AND LIMITATIONS DETAILED ABOVE. Interpreted by: Lauren Winters MD Signed by: Lauren Winters MD 11/04/20 Final result Normal [facility] Glucose 1hr PPon 10-06-2020 Glucose [Mass/Vol] 100 mg/dL Normal 60-140 [facility] Comment on above: Result Comment: Gluc ose tolerance is IMPAIRED when the 1 hour post 50 gram load glucose is greater than 130mg/dL Performed By: #### T SH #### [facility] [address] [facility] [address] Hemoglobin and Hematocriton 10-06-2020 Hematocrit (Bld) [Volume fraction] 34.3 % Low 37.0-47.0 [facility] Comment on above: Performed By: #### T SH #### [facility] [address] [facility] [address] Hemoglobin (Bld) [Mass/Vol] 11.8 g/dL Low 12.0-16.0 [facility] Comment on above: Performed By: #### T SH #### [facility] [address] [facility] [address] US OB 14 PLUS WEEKS SINGLE O R FIRST GESTATIONon 09-07-2020 INR Coag (Bld) [Relative time] APPROPRIATE INTERVAL GROWTH. [facility], [place] Sonogram #: 1 Presentation: Variable GS: CRL: BPD: 4.8 Wks: 20.4 HC: 17.9 Wks:20.3 AC: 15.9 Wks: 21.1 FL: 3.4 Wks: 20.6 HC/AC: 1.12 Anatomy Cerebral Ventricles V Posterior Fossa V Spinal Column V Right Kidney V Left Kidney V Bladder V 4 Chamber Heart V Diaphragm V Stomach V Cord Insertion V 3 Vessel Cord V 12 Long Bones V Placental Location: Anterior, not low lying Placental Grade: I SOURAV: Within normal limits Cervical Length: 4.6 cm Dating Date: 09/06/20 Wks by 1st US: 19.5 Wks at this US: 20.6 Weight (>28 Wks): 380 +/- 56g LMP: VESTA by 1st U/S: 01/26/21 Heart Rate: 138 Right Ovary Left Ovary EXAMINATION: US OB 14 PLUS WEEKS SINGLE OR FIRST GESTATION CLINICAL HISTORY:ASSESS ANATOMY Z34.82 ENCOUNTER FOR SUPERVISION OF OTHER NORMAL IN SECOND TRIMESTER ICD10 COMPARISON: NONE AVAILABLE. FINDINGS: Single intrauterine fetus in a variable lie. Amniotic fluid volume is subjectively within normal limits. 4.6 cm cervical length. Anterior placenta without previa. heart rate 138 bpm. Fetus scanned with further detail on the accompanying sheet. No gross abnormality. Today's biometric parameters indicate an estimated ultrasound age of 20 weeks and 6 days compatible with appropriate interval growth. [employer]- [place], [place], [employer] Incoming Radiant Results From [facility] - 09/07/2020 5:26 PM EST Sonogram #: 1 Presentation: Variable GS: CRL: BPD: 4.8 Wks: 20.4 HC: 17.9 Wks:20.3 AC: 15.9 Wks: 21.1 FL: 3.4 Wks: 20.6 HC/AC: 1.12 Anatomy Cerebral Ventricles V Posterior Fossa V Spinal Column V Right Kidney V Left Kidney V Bladder V 4 Chamber Heart V Diaphragm V Stomach V Cord Insertion V 3 Vessel Cord V 12 Long Bones V Placental Location: Anterior, not low lying Placental Grade: I SOURAV: Within normal limits Cervical Length: 4.6 cm Dating Date: 09/06/20 Wks by 1st US: 19.5 Wks at this US: 20.6 Weight (>28 Wks): 380 +/- 56g LMP: VESTA by 1st U/S: 01/26/21 Heart Rate: 138 Right Ovary Left Ovary EXAMINATION: US OB 14 PLUS WEEKS SINGLE OR FIRST GESTATION CLINICAL HISTORY:ASSESS ANATOMY Z34.82 ENCOUNTER FOR SUPERVISION OF OTHER NORMAL IN SECOND TRIMESTER ICD10 COMPARISON: NONE AVAILABLE. FINDINGS: Single intrauterine fetus in a variable lie. Amniotic fluid volume is subjectively within normal limits. 4.6 cm cervical length. Anterior placenta without previa. heart rate 138 bpm. Fetus scanned with further detail on the accompanying sheet. No gross abnormality. Today's biometric parameters indicate an estimated ultrasound age of 20 weeks and 6 days compatible with appropriate interval growth. IMPRESSION: APPROPRIATE INTERVAL GROWTH. [place], [place] US OB 14 PLUS WEEKS SINGLE O R FIRST GESTATIONon 09-06-2020 US OB 14 PLUS WEEKS SINGLE OR FIRST GESTATION Sonogram #: 1 Presentation: Variable GS: CRL: BPD: 4.8 Wks: 20.4 HC: 17.9 Wks:20.3 AC: 15.9 Wks: 21.1 FL: 3.4 Wks: 20.6 HC/AC: 1.12 Anatomy Cerebral Ventricles V Posterior Fossa V Spinal Column V Right Kidney V Left Kidney V Bladder V 4 Chamber Heart V Diaphragm V Stomach V Cord Insertion V 3 Vessel Cord V 12 Long Bones V Placental Location: Anterior, not low lying Placental Grade: I SOURAV: Within normal limits Cervical Length: 4.6 cm Dating Date: 09/06/20 Wks by 1st US: 19.5 Wks at this US: 20.6 Weight (>28 Wks): 380 +/- 56g LMP: VESTA by 1st U/S: 01/26/21 Heart Rate: 138 Right Ovary Left Ovary EXAMINATION: US OB 14 PLUS WEEKS SINGLE OR FIRST GESTATION CLINICAL HISTORY:ASSESS ANATOMY Z34.82 ENCOUNTER FOR SUPERVISION OF OTHER NORMAL IN SECOND TRIMESTER ICD10 COMPARISON: NONE AVAILABLE. FINDINGS: Single intrauterine fetus in a variable lie. Amniotic fluid volume is subjectively within normal limits. 4.6 cm cervical length. Anterior placenta without previa. heart rate 138 bpm. Fetus scanned with further detail on the accompanying sheet. No gross abnormality. Today's biometric parameters indicate an estimated ultrasound age of 20 weeks and 6 days compatible with appropriate interval growth. IMPRESSION: APPROPRIATE INTERVAL GROWTH. Interpreted by: Alcon Bernal MD Signed by: Alcon Bernal MD 09/07/20 Final result Normal [facility] Non-Invasive Testin g for Aneuploidyon 08-23-2020 EER Non-Invasive , Aneuploidy See Note Normal [facility] Comment on above: Result Comment: Jon DONOHUE Enhanced Report using the link below: -Direct access: [email or web address] Performed by [facility], [address] [place] [address],[place] [address] [email or web address], Nafisa Mejia MD - Lab. Director Performed By: #### 0 4693 #### [facility] [address] [place] [address] Fraction 7.7 % Normal [facility] Comment on above: Performed By: #### 0 0514 #### [facility] [address] [place] [address] Fetus Gender Female Normal [facility] Comment on above: Performed By: #### 0 5432 #### [facility] [address] [place] [address] Monosomy X Low Risk Normal [facility] Comment on above: Performed By: #### 0 2725 #### [facility] [address] [place] [address] Result Summary See Notes Normal [facility] Comment on above: Result Comment: LOW RISK Performed By: #### 0 1061 #### [facility] [address] [place] [address] Triploidy/Vanishing Twin Low Risk Normal [facility] Comment on above: Performed By: #### 0 4315 #### [facility] [address] [place] [address] Trisomy 13 Low Risk Normal [facility] Comment on above: Performed By: #### 0 7007 #### [facility] [address] [place] [address] Trisomy 18 Low Risk Normal [facility] Comment on above: Performed By: #### 0 4279 #### [facility] [address] [place] [address] Trisomy 21 Low Risk Normal [facility] Comment on above: Performed By: #### 0 7537 #### [facility] [address] [place] [address] Cystic Fibrosis, 165 Variant son 08-17-2020 Cystic Fibrosis 5T Variant Not Applicable Normal [facility] Cystic Fibrosis Allele 1 Negative Normal [facility] Cystic Fibrosis Allele 2 Negative Normal [facility] Cystic Fibrosis,165 Variants Interp 0 variants Normal [facility] Comment on above: Result Comment: None of the 165 pathogenic cystic fibrosis (CF) variants tested were detected. The following table can be used to determine the reduction in carrier risk. This table does not apply to individuals with a positive family history who require Bayesian analysis for accurate risk assessment. Variant Carrier Detection Carrier Risk Risk After Ethnicity Rate Before Test Negative Test 78% 1 in 61 1 in 275 Ashkenazi Restorationism 96% 1 in 24 1 in 575 Ukrainian 55% 1 in 94 1 in 210 92% 1 in 25 1 in 300 Ukrainian 80% 1 in 58 1 in 285 Specimen: Whole Blood Symptoms: No Ethnicity: Family History: No This result has been reviewed and approved by Erwin Downs, Ph.D. BACKGROUND INFORMATION: Cystic Fibrosis (CFTR), 165 Pathogenic Variants CHARACTERISTICS OF CLASSIC CYSTIC FIBROSIS (CF): Chronic sino-pulmonary disease, gastrointestinal malabsorption/pancreatic insufficiency, and obstructive azoospermia. Symptoms of a CFTR-related disorder are often limited to a single organ system such as isolated pancreatitis, bilateral absence of the vas deferens, nasal polyposis, or bronchiectasis. INCIDENCE: 1 in 2,300 Ashkenazi Restorationism, 1 in 2,500 Caucasians, 1 in 13,500 Hispanics, 1 in 15,100 Americans, 1 in 35,100 Asians. INHERITANCE: Autosomal recessive. PENETRANCE: High for severe pathogenic variants, variable for moderate or mild pathogenic variants. Cause of Classic CF: Two severe, or one severe and one moderate, pathogenic CFTR variants on opposite chromosomes. Cause of CFTR-Related Disorder: Two pathogenic CFTR variants on opposite chromosomes; two mild, one mild and one severe or one mild and one moderate. PATHOGENIC VARIANTS TESTED: *Note: variants are listed by standard nomenclature. Legacy names are also provided for the 23 recommended ACMG variants. c.1A>G, p.Nlw3Wvm; c.54-6861_273+59002wba, Exons 2-3del; c.115C>T, p.Gln39X; c.178G>T, p.Glu60X; c.200C>T, p.Ixm23Oww; c.223C>T, p.Arg75X; c.254G>A (Legacy G85E), p.Dyl29Vde; c.262_263delTT, p.Yug22ObbopW26 (aka p.Qew52yr); c.273+1G>A, Intronic; c.273+3A>C, Intronic; c.274-1G>A, Intronic; c.274G>A, p.Sdq65Qxp; c.274G>T, p.Glu92X; c.292C>T, p.Gln98X; c.313delA, p.Zvg502QxfhzY9 (aka p.Qjw715qj); c.325_327delTATinsG, p.Qzr954SieprH5 (aka p.Pav675yu); c.328G>C, p.Gwd975Typ; c.349C>T, p.Pqc550Yul; c.350G>A (Legacy R117H), p.Nma517Mdx; c.366T>A, p.Bud965T; c.442delA, p.Jwb246CpccwO7 (aka p.Ejl288xt); c.489+1G>T (Legacy 621+1G>T), Intronic; c.531delT, p.Czr096KmwotU05 (aka p.Rpl449yi); c.532G>A, p.Ivn401Aac; c.579+1G>T (Legacy 711+1G>T), Intronic; c.579+5G>A, Intronic; c.579+3A>G, Intronic; c.580-1G>T, Intronic; c.595C>T, p.Wpv285Ton; c.613C>T, p.Ixv846Xgt; c.617T>G, p.Htw227Tng; c.658C>T, p.Uwl471D; c.680T>G, p.Ixi561Kum; c.720_741delAGGGAGAATGATGATGAAGTAC, p.Bzu233LkzqwA49 (aka p.Ocl159hj); c.803delA, p.Dwg674AssruU69 (aka p.Xcw071st); c.805_806delAT, p.Obq289HpvzsK7 (aka p.Evo415xc); c.933_935delCTT, p.Ltu077gio; c.948delT, p.Evy093BtckgA92 (aka p.Bqh619rq); c.988G>T, p.Sci453C; c.1000C>T (Legacy R334W), p.Prf544Vzk; c.1007T>A, p.Ttp077Ndp; c.1021T>C, p.Oue323Ozt; c.1022_1023insTC, p.Ayg944ZetnbC15 (aka p.Trm831rg); c.1040G>A, p.Uea062Ghp; c.1040G>C (Legacy R347P), p.Kbf366Kah; c.1055G>A, p.Gsi725Hsb; c.1081delT, p.Pxg047EhkewE0 (aka p.Ocb580hd); c.1116+1G>A, Intronic; c.1127_1128insA, p.Cnb296SvkuzX6 (aka p.Cmo851cc); c.1153_1154insAT, p.Ytn681LehdvI0 (aka p.Gph165sw); c.1202G>A, p.Jna995Q; c.1203G>A, p.Eif166T; c.1209+1G>A, Intronic; c.1329_1330insAGAT, p.Lyo629PjfrhY3 (aka p.Khp272vi); c.1340delA, p.Hvb250YrhzkT3 (aka p.Kfm342wh); c.1364C>A (Legacy A455E), p.Uod947Jok; c.1393-1G>A, Intronic; c.1397C>A, p.Noe686F; c.1397C>G, p.Mmi485Q; c.1400T>C, p.Ccn042Icg; c.1418delG, p.Per767VikpfC47 (aka p.Vww892hq); c.1438G>T, p.Udj280Rhh; c.1466C>A, p.Nza700Z; c.1475C>T, p.Pjf506Sov; c.1477C>T, p.Xdz662V; c.1519_1521delATC (Legacy L324atl), p.Yfg322jjh; c.1521_1523delCTT (Legacy U973jnh), p.Pet828ypu; c.1545_1546delTA, p.Hyu012R; c.1558G>T, p.Xlh751Nhh; c.1572C>A, p.Yiu327H; c.1573C>T, p.Izd695J; c.1585-1G>A (Legacy 1717-1G>A), Intronic; c.1585-8G>A, Intronic; c.1624G>T (Legacy G542X), p.Wml210B; c.1645A>C, p.Fov319Rxh; c.1646G>A, p.Wur831Cry; c.1647T>G, p.Qwk278Qtr; c.1651G>A, p.Ffx080Wdk; c.1652G>A (Legacy G551D), p.Hvh405Sxi; c.1654C>T, p.Bmi358L; c.1657C>T (Legacy R553X), p.Vlq516U; c.1675G>A, p.Aab564Zaz; c.1679G>A, p.Gfm208Pmq; c.1679G>C (Legacy R560T), p.Ogc737Dot; c.1679+1.6kbA>G, Intronic; c.1680-1G>A, Intronic; c.1703delT, p.Hsk194CcabaH0 (aka p.Qht563hy); c.1705T>G, p.Hqv700Mkf; c.1721C>A, p.Fpl287Kfp; c.1753G>T, p.Rnm647L; c.1766+1G>A (Legacy 1898+1G>A), Intronic; c.1766+3A>G, Intronic; c.1792_1798delAAAACTA, p.Eia561MorjuT12 (aka p.Hlr083kv); c.1911delG, p.Ppr478SriryK68 (aka p.Kvn612yx); c.1923_1931del9insA, p.Fvg314BudyoY4 (aka p.Giw327ar); c.1972_1984del13insAGAAA, p.Vjt262RyjmeF5 (aka p.Tmg199fy); c.1975delA, p.Sab439JhekvG7 (aka p.Gnm980yg); c.2011delT, p.Gwr327X; c.2050_2del, p.Mxw840BsoolM0; c.2050_2delinsG (aka c.205_elinsG), p.Bot005SjclsL39; c.2052delA (Legacy 2184delA), p.Ibj329HpgnqO69; c.2125C>T, p.Pby926F; c.2128A>T, p.Lpd914N; c.2175_2176insA, p.Glx061YvnwzF3 (aka p.Vzh790xz); c.2195T>G, p.Cih866R; c.2215delG, p.Fvw575JcyntY53 (aka p.Bhe215mg); c.2290C>T, p.Xtm555Iqq; c.2453delT, p.Kkw215SyrawX4 (aka p.Enw104bc); c.2464G>T, p.Eyn235F; c.2490+1G>A, Intronic; c.2491G>T, p.Dxi619L; c.2537G>A, p.Yls493C; c.2538G>A, p.Eyk224Z; c.2551C>T, p.Mbu659A; c.2583delT, p.Omr832PsfynZ2 (aka p.Apj461fx); c.2657+5G>A (Legacy 2789+5G>A), Intronic; c.2668C>T, p.Gjq059N; c.2737_2738insG, p.Gvj510D; c.2780T>C, p.Yfd351Stp; c.2810_2811insT, p.Xnr119WpnilA55 (aka p.Elp356ng); c.2834C>T, p.Cai896Dtn; c.2875delG, p.Qxo275UjndrD8 (aka p.Iuh595fa); c.2908G>C, p.Max099Gin; c.2988+1G>A (Legacy 3120+1G>A), Intronic; c.2988G>A, Intronic; c.2989-1G>A, Intronic; c.3039delC, p.Inn6384MvnhcG1 (aka p.Ygk6184lh); c.3067_3072delATAGTG, p.Tdv2433_Aat0629mll (aka D5875_B9902xzk); c.3140-26A>G, Intronic; c.3194T>C, p.Dwj4981Urd; c.3196C>T, p.Qzs8214Prg; c.3197G>A, p.Arx5988Nbb; c.3230T>C, p.Pfq4647Rit; c.3266G>A, p.Odm3836Z; c.3276C>A, p.Std0478P; c.3276C>G, p.Arp1652H; c.3302T>A, p.Fcd9818Wdc; c.3310G>T, p.Iqb2912R; c.3472C>T, p.Lnb9904N; c.3484C>T (Legacy K8163O), p.Laa9564M; c.3528delC (Legacy 3659delC), p.Kqh0534CmppmB32 (aka p.Ibj1781fo); c.3536_3539del, p.Pwt0459DnzccL79 (aka p.Hwc8030ny); c.3587C>G, p.Xyg1385Z; c.3611G>A, p.Bfm2517E; c.3612G>A, p.Ekm6888B; c.3659delC, p.Kwl2615UqjivL9 (aka p.Ehc5241ze); c.3691delT, p.Spt8580YtcmnK2 (aka p.Vfy3693kc); c.3712C>T, p.Dos3366B; c.3718-1557C>T (Legacy 3849+10kbC>T), Intronic; c.3731G>A, p.Jqq6619Zgb; c.3744delA, p.Oxo7627TyezgN3 (aka p.Crp1205sx); c.3752G>A, p.Zcd7355Ijx; c.3763T>C, p.Puq9559Sva; c.3764C>A, p.Eho2008I; c.3773_3774insT, p.Uvf3166VliwjL8 (aka p.Yzq5126do); c.3846G>A (Legacy D1013J), p.Zln5973S; c.3873+1G>A, Intronic; c.3909C>G (Legacy M1021O), p.Dpg0060Qhg; c.3937C>T, p.Ehw8916K; c.3964-78_4242+577del, Exons 22-23del; c.4028delG, p.Hfm9283TuiczU1 (aka p.Hma0815vy); c.4046G>A, p.Xjn0951Epn; c.4077_4080delTGTTinsAA, p.Rji2226shV2 (aka p.Aif2120ly); c.4111G>T, p.Nbv8277O; c.4251delA, p.Qxs7018BizdvU66 (aka p.Akp1629td). The IVS-8 variant, c.1210-12[5], will be reported only when R117H is detected or in patients who are reported to be symptomatic. CLINICAL SENSITIVITY: Ashkenazi Restorationism 96 percent; 92 percent; 80 percent; 78 percent; Ukrainian 55 percent. METHODOLOGY: Polymerase chain reaction (PCR) and fluorescence monitoring. Analytical Sensitivity AND Specificity: 99 percent. LIMITATIONS: Diagnostic errors can occur due to rare sequence variations. Only the 165 pathogenic CFTR variants and 5T variant (listed above) will be interrogated. See Compliance Statement C: [email or web address] Performed by [facility], [address] [place] [address] [email or web address], Nafisa Mejia MD - Lab. Director HIV-1,2 Combo Ag/Ab, Reflexi ve Panelon 08-12-2020 HIV 1,2 Combo Antigen/Antibody Negative Normal Negative [facility] Comment on above: Result Comment: The specimen was non-reactive for HIV-1 and HIV-2 antibodies, and p24 antigen. Based on this non-reactive screen result, further reflexive testing was not indicated and was, therefore, not performed INTERPRETIVE INFORMATION: HIV-1,2 Combo Ag/Ab EIA, w/Reflex This assay should not be used for blood donor screening, associated re-entry protocols, or for screening Human Cells, Tissues, and Cellular and Tissue-Based Products (HCT/P). Performed by [facility], [address] [place] [address] [email or web address], Nafisa Mejia MD - Lab. Director Maternal Serum Screen, AFP, Onlyon 08-12-2020 Dating Ultrasound Normal [facility] Estimated Due Date 01-26-21 [facility] Family Hx Neural Tube Defect No Normal [facility] Gestational Age calc at collect 15 wks, 5 days [facility] INR Coag (Bld) [Relative time] No Normal [facility] [age] [facility] Maternal Race Nonblack [facility] Maternal Screen Interpretation Screen Neg [facility] Comment on above: Result Comment: INTE RPRETATION: SCREEN NEGATIVE for open spina bifida Neural Tube Defects (NTD) Negative Pre-Test Post-Test Cutoff Neural Tube Defects Risks 1:1030 < 1:25894 1:250 Comments: The risk of an open neural tube defect is less than the screening cut-off. Test developed and characteristics determined by [facility]. See Compliance Statement B: [facility]/CS MoM for AFP 0.95 [facility] Number of Fetuses Ware [facility] Patient's AFP 25 ng/mL [facility] Smoking No [facility] Specimen See Note [facility] Comment on above: Result Comment: Init ial sample Performed by [facility], [address] [place] [address] [email or web address], Nafisa Mejia MD - Lab. Director VaricellaBrandyZoster Virus Sudarshan Woods 08-12-2020 Varicella-Zoster Virus Ab, IgG 727.1 IV [facility] Comment on above: Result Comment: INTE RPRETIVE INFORMATION: VZV Ab, IgG 134.9 IV or less ....... Negative - No significant level of detectable IgG varicella-zoster antibody. 135.0 - 164.9 IV ....... Equivocal - Repeat testing in 10-14 days may be helpful. 165.0 IV or greater .... Positive - IgG antibody to varicella-zoster detected, which may indicate a current or past varicella-zoster infection. The best evidence for current infection is a significant change on two appropriately timed specimens, where both tests are done in the same laboratory at the same time. Performed By: [facility] [address] [place] [address] Assistant Customer Service Manager: Nafisa Mejia MD RPRon 08-10-2020 Reagin Ab RPR Ql (S) Non-reactive Normal Non-reacti [facility] Comment on above: Performed By: #### T SH #### [facility] [address] [place] [address] CBC With Platelet and Differ entialon 08-09-2020 Basophils (Bld) [#/Vol] 0.0 10*3/uL Normal 0.0-0.2 [facility] Comment on above: Performed By: #### C BCWD #### [facility] [address] [place] [address] Basophils/100 WBC (Bld) 0.2 % Normal [facility] Comment on above: Performed By: #### C BCWD #### [facility] [address] [place] [address] Eosinophils (Bld) [#/Vol] 0.1 10*3/uL Normal 0.0-0.7 [facility] Comment on above: Performed By: #### C BCWD #### [facility] [address] [place] [address] Eosinophils/100 WBC (Bld) 1.5 % Normal [facility] Comment on above: Performed By: #### C BCWD #### [facility] [address] [place] [address] Erythrocyte distribution width (RBC) [Ratio] 13.5 % Normal 11.5-14.5 [facility] Comment on above: Performed By: #### C BCWD #### [facility] [address] [place] [address] Hematocrit (Bld) [Volume fraction] 39.5 % Normal 37.0-47.0 [facility] Comment on above: Performed By: #### C BCWD #### [facility] [address] [place] [address] Hemoglobin (Bld) [Mass/Vol] 12.9 g/dL Normal 12.0-16.0 [facility] Comment on above: Performed By: #### C BCWD #### [facility] [address] [place] [address] Lymphocytes (Bld) [#/Vol] 2.1 10*3/uL Normal 1.0-4.8 [facility] Comment on above: Performed By: #### C BCWD #### [facility] [address] [place] [address] Lymphocytes/100 WBC (Bld) 21.6 % Normal [facility] Comment on above: Performed By: #### C BCWD #### [facility] [address] [place] [address] MCH (RBC) [Entitic mass] 28.8 pg Normal 27.0-31.3 [facility] [facility] Comment on above: Performed By: #### C BCWD #### [facility] [address] [place] [address] MCHC (RBC) [Mass/Vol] 32.7 % Low 33.0-37.0 [facility] Comment on above: Performed By: #### C BCWD #### [facility] [address] [place] [address] MCV (RBC) [Entitic vol] 88.1 fL Normal 82.0-100.0 [facility] Comment on above: Performed By: #### C BCWD #### [facility] [address] [place] [address] Monocytes (Bld) [#/Vol] 0.5 10*3/uL Normal 0.2-0.8 [facility] Comment on above: Performed By: #### C BCWD #### [facility] [address] [place] [address] Monocytes/100 WBC (Bld) 5.4 % Normal [facility] Comment on above: Performed By: #### C BCWD #### [facility] [address] [place] [address] Neutrophils (Bld) [#/Vol] 7.0 10*3/uL Critically high 1.4-6.5 [facility] Comment on above: Performed By: #### C BCWD #### [facility] [address] [place] [address] Neutrophils/100 WBC (Bld) 71.3 % Normal [facility] Comment on above: Performed By: #### C BCWD #### [facility] [address] [place] [address] Platelets (Bld) [#/Vol] 271 10*3/uL Normal 130-400 [facility] Comment on above: Performed By: #### C BCWD #### [facility] [address] [place] [address] RBC (Bld) [#/Vol] 4.48 10*6/uL Normal 4.20-5.40 [facility] Comment on above: Performed By: #### C BCWD #### [facility] [address] [place] [address] WBC (Bld) [#/Vol] 9.8 10*3/uL Normal 4.8-10.8 [facility] Comment on above: Performed By: #### C BCWD #### [facility] [address] [place] [address] Hepatitis B Surface Agon Hepatitis B Surface Ag Interp Non-reactive Normal [facility] Comment on above: Performed By: #### H BSG #### [facility] [address] [place] [address] Non-Invasive Testin g for Aneuploidyon 08-09-2020 Fetus Number 1 Normal [facility] Comment on above: Performed By: #### 0 [id number] #### [facility] [address] [place] [address] Gestational Age (Days) 5 Normal [facility] Comment on above: Performed By: #### 0 [id number] #### [facility] [address] [place] [address] Gestational Age (Weeks) 15 Normal [facility] Comment on above: Performed By: #### 0 6593 #### [facility] [address] [place] [address] NIPT Height 63 Normal [facility] Comment on above: Performed By: #### 0 7537 #### [facility] [address] [place] [address] Report Fetus Gender yes Normal [facility] Comment on above: Performed By: #### 0 7537 #### [facility] [address] [place] [address] Rubella Ab, IgGon 08-09-2020 Rubella Ab, IgG 7.5 IU/mL Normal [facility] Comment on above: Result Comment: Equi vocal results repeat testing in 10-14 days maybe helpful. Default Normal Ranges >=10 Presumed Immune <10 Presumed Not immune Performed By: #### R UBEL #### [facility] [address] [place] [address] Type and 3 cell Screen OB Ca ptureon 08-09-2020 Type and 3 cell Screen OB Capture PATIENT: ANTHONY Nelson LOC: DANAYBILL# : [id number] : 1995 SEX: F ORDERED BY: JARON JIMENEZ ORDERED : 08/09/2020 17:53 COLLECTED: 08/09/2020 18:33 ORDER : [id number] RECEIVED : 08/09/2020 19:15 TEST NAME RESULT UNITS RANGES ABN FL ST ABORH Capture O POS F Antibody 3 Cell Scrn Captu NEG F Normal [facility] Comment on above: Performed By: #### T SO3C #### [facility] [address] [place] [address] Pain Mgt Drug Panel, Hi Res, Uron 07-15-2020 6-acetylmorphine (cutoff 20 ng/mL) Not Detected Normal [facility] 7-Aminoclonazepam (cutoff 40 ng/mL) Not Detected Normal [facility] Oxxbp-QG-Ngovitcsbk (cutoff 20 ng/mL) Not Detected Normal [facility] Alprazolam (cutoff 40 ng/mL) Not Detected Normal [facility] Amphetamine (cutoff 100 ng/mL) Not Detected Normal [facility] Barbiturates (cutoff 200 ng/mL) Not Detected Normal [facility] Benzoylecgonine Ql (U) Not Detected Normal [facility] Buprenorphine (cutoff 5 ng/mL) Not Detected Normal [facility] Carisoprodol (cutoff 100 ng/mL) Not Detected Normal [facility] Comment on above: Result Comment: The carisoprodol immunoassay has cross-reactivity to carisoprodol and meprobamate. Clonazepam (cutoff 20 ng/mL) Not Detected Normal [facility] Codeine (cutoff 40 ng/mL) Not Detected Normal [facility] Creatinine, Urine 194.1 mg/dL Normal 20.0-400.0 [facility] Diazepam (cutoff 50 ng/mL) Not Detected Normal [facility] EER Pain Mgt Drug Panel High Res/EMIT U See Note Normal [facility] Comment on above: Result Comment: Acce ss MailWriter Enhanced Report using either link below: -Direct access: [email or web address] -Enter Username, Password: [email or web address] Username: [email or web address] Password: [email or web address] Performed By: [facility] [address] [place] [id number] Assistant Customer Service Manager: Nafisa eMjia MD Ethyl Glucuronide (cutoff 500 ng/mL) Not Detected Normal [facility] Fentanyl (cutoff 2 ng/mL) Not Detected Normal [facility] Hydrocodone (cutoff 40 ng/mL) Not Detected Normal [facility] Hydromorphone (cutoff 40 ng/mL) Not Detected Normal [facility] Lorazepam (cutoff 60 ng/mL) Not Detected Normal [facility] Marijuana Metabolite (cutoff 20 ng/mL) Not Detected Normal [facility] MDA (cutoff 200 ng/mL) Not Detected Normal [facility] MDEA-Jane (cutoff 200 ng/mL) Not Detected Normal [facility] MDMA-Ecstasy (cutoff 200 ng/mL) Not Detected Normal [facility] Meperidine metabolite (cutoff 50 ng/mL) Not Detected Normal [facility] Methadone Ql (U) Not Detected Normal [facility] Methamphetamine (cutoff 400 ng/mL) Not Detected Normal [facility] Methylphenidate (cutoff 100 ng/mL) Not Detected Normal [facility] Midazolam (cutoff 20 ng/mL) Not Detected Normal [facility] Morphine (cutoff 20 ng/mL) Not Detected Normal [facility] Norbuprenorphine (cutoff 20 ng/mL) Not Detected Normal [facility] Nordiazepam (cutoff 50 ng/mL) Not Detected Normal [facility] Norfentanyl (cutoff 2 ng/mL) Not Detected Normal [facility] Norhydrocodone (cutoff 100 ng/mL) Not Detected Normal [facility] Noroxycodone (cutoff 100 ng/mL) Not Detected Normal [facility] Noroxymorphone (cutoff 100 ng/mL) Not Detected Normal [facility] Oxazepam (cutoff 50 ng/mL) Not Detected Normal [facility] Oxycodone (cutoff 40 ng/mL) Not Detected Normal [facility] Oxymorphone (cutoff 40 ng/mL) Not Detected Normal [facility] Pain Management Drug Panel See Below Normal [facility] Comment on above: Result Comment: Meth odology: Qualitative Enzyme Immunoassay and Qualitative Liquid Chromatography-Time of Flight-Mass Spectrometry or Tandem Mass Spectrometry, Quantitative Spectrophotometry The absence of expected drug(s) and/or drug metabolite(s) may indicate non-compliance, inappropriate timing of specimen collection relative to drug administration, poor drug absorption, diluted/adulterated urine, or limitations of testing. The concentration must be greater than or equal to the cutoff to be reported as present. If specific drug concentrations are required, contact the laboratory within two weeks of specimen collection to request quantification by a second analytical technique. Interpretive questions should be directed to the laboratory. Results based on immunoassay detection that do not match clinical expectations should be interpreted with caution. Confirmatory testing by mass spectrometry for immunoassay-based results is available, if ordered within two weeks of specimen collection. Additional charges apply. For medical purposes only; not valid for forensic use. This test was developed and its performance characteristics determined by [facility]. It has not been cleared or approved by the [place] Food and Drug Administration. This test was performed in a CLIA certified laboratory and is intended for clinical purposes. PCP (cutoff 25 ng/mL) Not Detected Normal [facility] Phentermine (cutoff 100 ng/mL) Not Detected Normal [facility] Propoxyphene (cutoff 300 ng/mL) Not Detected Normal [facility] Tapentadol (cutoff 100 ng/mL) Not Detected Normal [facility] Baawkgamyt-v-Yacl (cutoff 200 ng/mL) Not Detected Normal [facility] Temazepam (cutoff 50 ng/mL) Not Detected Normal [facility] Tramadol (cutoff 200 ng/mL) Not Detected Normal [facility] Zolpidem (cutoff 20 ng/mL) Not Detected Normal [facility] Culture, Urineon 07-12-2020 Culture, Urine ORDERED BY: GERRI SALMERON SOURCE: Urine Clean Catch COLLECTED: 07/12/20 20:39 ANTIBIOTICS AT MALIKA.: RECEIVED : 07/12/20 20:56 Culture, Urine FINAL 07/14/20 09:29 No growth 24 hours Normal [facility] Comment on above: Performed By: #### C WENDY #### [facility] [address] [place] [address] US OB LESS THAN 14 WEEKS SIN GLE OR FIRST GESTATIONon 06-29-2020 Addendum by Lauren Winters MD on 06/29/2020 4:37 PM ADDENDUM: IMPRESSION SHOULD READ: ULTRASOUND CONFIRMS A SINGLE LIVING INTRAUTERINE AT 9 WEEKS 6 DAYS +/- 1 WEEK. TRACE AMOUNT OF NONSPECIFIC FREE FLUID IN THE PELVIS. OTHERWISE UNREMARKABLE FIRST TRIMESTER ULTRASOUND. FOLLOW-UP ANATOMIC SURVEY IS RECOMMENDED [place] ULTRASOUND CONFIRMS A SINGLE LIVING INTRAUTERINE AT 19 WEEKS 6 DAYS +/- 1 WEEK. TRACE AMOUNT OF NONSPECIFIC FREE FLUID IN THE PELVIS. OTHERWISE UNREMARKABLE FIRST TRIMESTER ULTRASOUND. FOLLOW-UP ANATOMIC SURVEY IS RECOMMENDED [place], [place] EXAMINATION: US OB LESS THAN 14 WEEKS SINGLE OR FIRST GESTATION CLINICAL HISTORY: 25-year-old patient in the first trimester. Assess dates COMPARISONS: None available. FINDINGS: Transabdominal ultrasound of the maternal pelvis and Doppler ovarian assessments were performed. The gravid uterus measures 11.4 x 7.6 x 6.7 cm. Contains a single gestational sac in the body and fundus. Gestational sac contains a single fetus. [place]-rump length averages 29.2 mm corresponding to a 9 week 6 day gestation +/- 1 week. heart rate of 170 bpm is documented. No gross anomalies appreciated but compromised anatomic survey at this early stage of gestation. Normal yolk sac and amniotic fluid volume. Surrounding decidual reaction is unremarkable. No focal myometrial masses. Limited views of the cervix are unremarkable. Right ovary measures 4.2 x 2.8 x 2.8 cm with a volume of 17 mL and contains small follicles. Left ovary measures 3.7 x 2.5 x 2 cm with a volume of 10 mL. Color flow and spectral waveforms are documented within both ovaries. There are no adnexal masses. Trace amount of nonspecific free fluid in the pelvis. [place], [place] Jens, po Incoming Radiant Results From [employer] - 06/29/2020 2:18 PM EDT EXAMINATION: US OB LESS THAN 14 WEEKS SINGLE OR FIRST GESTATION CLINICAL HISTORY: 25-year-old patient in the first trimester. Assess dates COMPARISONS: None available. FINDINGS: Transabdominal ultrasound of the maternal pelvis and Doppler ovarian assessments were performed. The gravid uterus measures 11.4 x 7.6 x 6.7 cm. Contains a single gestational sac in the body and fundus. Gestational sac contains a single fetus. [place]-rump length averages 29.2 mm corresponding to a 9 week 6 day gestation +/- 1 week. heart rate of 170 bpm is documented. No gross anomalies appreciated but compromised anatomic survey at this early stage of gestation. Normal yolk sac and amniotic fluid volume. Surrounding decidual reaction is unremarkable. No focal myometrial masses. Limited views of the cervix are unremarkable. Right ovary measures 4.2 x 2.8 x 2.8 cm with a volume of 17 mL and contains small follicles. Left ovary measures 3.7 x 2.5 x 2 cm with a volume of 10 mL. Color flow and spectral waveforms are documented within both ovaries. There are no adnexal masses. Trace amount of nonspecific free fluid in the pelvis. IMPRESSION: ULTRASOUND CONFIRMS A SINGLE LIVING INTRAUTERINE AT 19 WEEKS 6 DAYS +/- 1 WEEK. TRACE AMOUNT OF NONSPECIFIC FREE FLUID IN THE PELVIS. OTHERWISE UNREMARKABLE FIRST TRIMESTER ULTRASOUND. FOLLOW-UP ANATOMIC SURVEY IS RECOMMENDED [place], [place] US OB LESS THAN 14 WEEKS SINGLE OR FIRST GESTATION EXAMINATION: US OB LESS THAN 14 WEEKS SINGLE OR FIRST GESTATION CLINICAL HISTORY: 25-year-old patient in the first trimester. Assess dates COMPARISONS: None available. FINDINGS: Transabdominal ultrasound of the maternal pelvis and Doppler ovarian assessments were performed. The gravid uterus measures 11.4 x 7.6 x 6.7 cm. Contains a single gestational sac in the body and fundus. Gestational sac contains a single fetus. [place]-rump length averages 29.2 mm corresponding to a 9 week 6 day gestation +/- 1 week. heart rate of 170 bpm is documented. No gross anomalies appreciated but compromised anatomic survey at this early stage of gestation. Normal yolk sac and amniotic fluid volume. Surrounding decidual reaction is unremarkable. No focal myometrial masses. Limited views of the cervix are unremarkable. Right ovary measures 4.2 x 2.8 x 2.8 cm with a volume of 17 mL and contains small follicles. Left ovary measures 3.7 x 2.5 x 2 cm with a volume of 10 mL. Color flow and spectral waveforms are documented within both ovaries. There are no adnexal masses. Trace amount of nonspecific free fluid in the pelvis. IMPRESSION: ULTRASOUND CONFIRMS A SINGLE LIVING INTRAUTERINE AT 19 WEEKS 6 DAYS +/- 1 WEEK. TRACE AMOUNT OF NONSPECIFIC FREE FLUID IN THE PELVIS. OTHERWISE UNREMARKABLE FIRST TRIMESTER ULTRASOUND. FOLLOW-UP ANATOMIC SURVEY IS RECOMMENDED Interpreted by: Lauren Winters MD Signed by: Lauren Winters MD 06/29/20 Final result Normal [facility] HCG Quanton 06-14-2020 HCG Quant 08176.0 mIU/mL Normal [facility] Comment on above: Result Comment: Gest ational Age Expected HCG values (mIU/ml) 3 weeks 5-72 4 weeks 10-708 5 weeks 217-8,245 6 weeks 152-32,177 8 weeks 31,366-149,094 12 weeks 27,107-201,615 16 weeks 8,904-55,332 18 weeks 9,649-55,271 Performed By: #### H CGQ #### [facility] [address] [place] [address] Basic Metabolic Panelon 05-2 Anion gap [Moles/Vol] 14 mmol/L Normal 9-15 [facility] Comment on above: Performed By: #### B MP #### [facility] [address] [place] [address] Calcium [Mass/Vol] 9.8 mg/dL Normal 8.5-9.9 [facility] Comment on above: Performed By: #### B MP #### [facility] [address] [place] [address] Chloride [Moles/Vol] 99 mmol/L Normal 95-107 [facility] Comment on above: Performed By: #### B MP #### [facility] [address] [place] [address] CO2 [Moles/Vol] 25 mmol/L Normal 20-31 [facility] Comment on above: Performed By: #### B MP #### [facility] [address] [place] [address] Creatinine [Mass/Vol] 0.75 mg/dL Normal 0.50-0.90 [facility] Comment on above: Performed By: #### B MP #### [facility] [address] [place] [address] GFR/1.73 sq M predicted among blacks MDRD (S/P/Bld) [Vol rate/Area] mL/min/{1.73_m2} Normal >60 [facility] Comment on above: Result Comment: >60 mL/min/1.73m2 EGFR, calc. for ages 18 and older using the MDRD formula (not corrected for weight), is valid for stable renal function. Performed By: #### B MP #### [facility] [address] [place] [address] GFR/1.73 sq M.predicted MDRD (S/P/Bld) [Vol rate/Area] mL/min/{1.73_m2} Normal >60 [facility] Comment on above: Result Comment: >60 mL/min/1.73m2 EGFR, calc. for ages 18 and older using the MDRD formula (not corrected for weight), is valid for stable renal function. Performed By: #### B MP #### [facility] [address] [place] [address] Glucose [Mass/Vol] 86 mg/dL Normal 70-99 [facility] Comment on above: Performed By: #### B MP #### [facility] [address] [place] [address] Potassium [Moles/Vol] 3.6 mmol/L Normal 3.4-4.9 [facility] Comment on above: Performed By: #### B MP #### [facility] [address] [place] [address] Sodium [Moles/Vol] 138 mmol/L Normal 135-144 [facility] Comment on above: Performed By: #### B MP #### [facility] [address] [place] [address] Urea nitrogen [Mass/Vol] 10 mg/dL Normal 6-20 [facility] Comment on above: Performed By: #### B MP #### [facility] [address] [place] [address] TSH w/out Reflexon 0 TSH Qn 1.460 uIU/mL Normal 0.440-3.86 [facility] Comment on above: Performed By: #### T SH #### [facility] [address] [place] [address] Pathology ([facility])on 06-24-2018 Pathology ([facility]) Copy To: DOCTOR [id number] ER FINAL SURGICAL PATHOLOGY [id number] FINAL DIAGNOSISTONSILS, TONSILLECTOMY- 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 The fragments weigh 13 g. They measure 3.3 x 2.2 x 1.7 cm, and 4 x2.1 x 1.8 cm. 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 LMP--last 2 months; implanon. SPECIMEN ADEQUACY SATISFACTORY FOR EVALUATION. ENDOCERVICAL/TRANSFOR MATION ZONE COMPONENTS ABSENT. INTERPRETATION/RESULT NEGATIVE FOR INTRAEPITHELIAL LESION OR MALIGNANCY. [facility] CONVERTED GROSS DESCRIPTION SPECIMEN: THIN PREP CERVICAL/ENDOCERVICAL [facility] CONVERTED ORDERING PROVIDER Ordering Provider: JANESSA ZELAYA [facility] CONVERTED PAP DISCLAIMER The Pap test serves as a screening tool for early detection of cervical cancer. The Pap test does not represent a final diagnostic test for cervical cancer. Furthermore, the Pap test was not designed to screen for other malignancies (endometrial, ovarian cancer, etc....). False negatives and false positives have occurred. If clinically indicated, further patient evaluation is recommended. [facility] Vital Signs Date Time Vital Sign Value Performing Clinician Facility 05-07-2022 08:00-0400 Body temperature 97.7 [degF] [facility] Work Phone: [facility] 05-07-2022 08:00-0400 Diastolic blood pressure 80 mm[Hg] [facility] Phone: [facility] 05-07-2022 08:00-0400 Heart rate 63 /min [facility] Phone: [facility] 05-07-2022 08:00-0400 Respiratory rate 16 /min [facility] Phone: [facility] 05-07-2022 08:00-0400 SaO2% (BldA) [Mass fraction] 97 % [facility] Phone: [facility] 05-07-2022 08:00-0400 Systolic blood pressure 125 mm[Hg] [facility] Phone: [facility] 05-04-2022 20:51-0400 Body height 160.02 cm [facility] Phone: [facility] 05-04-2022 20:51-0400 Body weight 95.7 kg [facility] Phone: [facility] 05-01-2022 13:50-0400 Respiratory rate 16 /min [facility] Phone: [facility] 05-01-2022 13:30-0400 Body temperature 98.1 [degF] [facility] Phone: [facility] 05-01-2022 13:23-0400 Body height 160.02 cm [facility] Phone: [facility] 05-01-2022 13:23-0400 Body weight 95.7 kg [facility] Phone: [facility] 05-01-2022 13:21-0400 Diastolic blood pressure 64 mm[Hg] [facility] Phone: [facility] 05-01-2022 13:21-0400 Heart rate 67 /min [facility] Phone: [facility] 05-01-2022 13:21-0400 Systolic blood pressure 135 mm[Hg] [facility] Phone: [facility] 01-14-2021 09:15-0400 Body Temperature 98.01 [degF] [employer] [employer] Phone: 01-14-2021 09:15-0400 BP Diastolic 57 mm[Hg] [employer] [employer] Phone: 01-14-2021 09:15-0400 BP Systolic 122 mm[Hg] [employer] [employer] Phone: 01-14-2021 09:15-0400 Pulse (Heart Rate) 51 /min [employer] [employer] Phone: 01-14-2021 09:15-0400 Respiratory Rate 16 /min [employer] [employer] Phone: 01-13-2021 16:26-0400 Pulse Oximetry 98 % [employer] [employer] Phone: 01-12-2021 20:15-0400 BMI (Body Mass Index) 38 kg/m2 [employer] [employer] Phone: 01-12-2021 20:15-0400 Body weight 97.3 kg [employer] [employer] Phone: 01-12-2021 20:15-0400 Height 160 cm [employer] [employer] Phone: 08-12-2020 14:35-0400 Body weight 192.0 lbs. [facility] 08-09-2020 20:32-0400 Body weight 192 [facility] Comment on above: Performed By: #### [id number] #### [facility] [address] [place] [address] Encounters Encounter Date Encounter Type Care Provider Facility Start: 11-05-2023 End: 11-05-2023 ambulatory IVANNA GODOY Not Available Start: 09-26-2023 End: 09-26-2023 ambulatory IVANNA GODOY Not Available Start: 09-19-2023 End: 09-19-2023 ambulatory KEN JESUS Not Available Start: 08-29-2023 End: 08-29-2023 ambulatory IVANNA GODOY Not Available Start: 07-09-2023 End: 07-09-2023 Emergency department patient visit [facility] Facility:[facility] Start: 12-14-[address] ADEOLA Fowler y:[facility]1 Start: 05-04-2022 End: 05-07-2022 Evaluation and management of inpatient [facility] Phone: [facility] Start: 05-01-2022 End: 05-01-2022 Patient encounter procedure [facility] Phone: [facility] - [facility]P Start: 04-13-2022 End: 04-13-2022 Departed Referred [facility] Work Phone: [facility] [place] Start: 02-27-2022 End: 02-28-2022 ambulatory YUMIKO BROWN Facility:[facility] Start: 01-12-2021 End: 01-14-2021 [facility] Start: 01-12-2021 End: 01-14-2021 Evaluation and management of inpatient Gerridmitry Diazjavibyronsudarshan Work Phone: [facility] Start: 11-04-2020 End: 11-07-2020 Patient encounter procedure GERRI D [facility] Start: 11-04-2020 End: 11-06-2020 Subsequent hospital visit by physician Matt Feliz 1 [facility] Comment on above: Encounter for superv ision of other normal in second trimester; 25 weeks gestation of Start: 09-06-2020 End: 09-09-2020 Patient encounter procedure GERRI D [facility] Start: 09-06-2020 End: 09-08-2020 Subsequent hospital visit by physician Matt Ultrasound 1 [facility] Ultrasound Comment on above: Encounter for sandra holley of other normal in second trimester; 15 weeks gestation of Start: 06-29-2020 End: 07-02-2020 [facility] Start: 06-29-2020 End: 07-01-2020 Subsequent hospital visit by physician Matt Ultrasound 2 [facility] Ultrasound Comment on above: test posit ryan; Amenorrhea Start: 08-06-2018 Patient encounter procedure Orlando Lo Facility:[id number] Start: 07-08-2018 Patient encounter procedure Radha Rollinsbernard Slaazar Facility:[id number] Start: 07-02-2018 Patient encounter procedure Radha Salazar Facility:[id number] Start: 06-24-2018 Patient encounter ORLANDO LO [facility] ity:[facility] [employer] Start: 06-24-2018 Patient encounter procedure Orlando Lo Facility:[id number] Start: 06-24-2018 Patient encounter procedure Orlando Lo Facility:[id number] Start: 06-07-2018 Patient encounter procedure Orlando Lo Facility:[id number] Start: 06-04-2018 Patient encounter procedure Skylar J Flores Facility:[id number] Start: 05-29-2018 Patient encounter procedure Skylar J Flores Facility:[id number] Start: 05-14-2018 Patient encounter procedure Orlando Lo Facility:[id number] Start: 03-18-2018 Patient encounter procedure Orlando Lo Facility:[id number] Start: 02-13-2018 Patient encounter procedure Skylar J Flores Facility:[id number] Start: 07-11-2012 End: 07-11-2012 Patient encounter procedure Janessa Zelaya Work Phone: [facility] Start: 07-11-2012 Results Only Janessa Zelaya Work Phone: [facility] Procedures Date Procedure Procedure Detail Performing Clinician Start: 01-14-2021 Blood count complete automated Gerri Salmeron Work Phone: Start: 01-12-2021 Antibody screen Gerri floyd Start: 01-12-2021 Antibody rubella Gerri Salmeron Work Phone: Start: 01-12-2021 Blood count complete auto&auto difrntl wbc Gerri James Jaron Work Phone: Start: 01-12-2021 Blood typing serologic abo Gerri James aJron Work Phone: Start: 01-12-2021 Iaad ia hepatitis b surface antigen Gerri Lacey Salmeron Work Phone: Start: 01-12-2021 Syphilis test non-treponemal antibody qual Gerri James Jaron Work Phone: Start: 01-12-2021 Comprehensive metabo lic panel Gerri Lacey Salmeron Work Phone: Start: 01-12-2021 Drug screen class list a Gerridmitry Salmeron Work Phone: Start: 01-12-2021 Urinalysis microscopic only Gerridmitry Salmeron Work Phone: Start: 01-12-2021 Urnls dip stick/tabl et rgnt auto w/o microscopy Gerridmitry Salmeron Work Phone: Start: 01-12-2021 COVID-19, RAPID Gerridmitry Salmeron Work Phone: Start: 11-04-2020 Us preg uterus real time w/image dcmtn transvag Gerridmitry Salmeron Work Phone: Start: 11-04-2020 Us uterus l imited fetuses Gerri Salmeron Work Phone: Start: 09-06-2020 Us preg uterus after 1st trimest 10/15 gestation Gerri Salmeron Work Phone: Start: 06-30-2020 RADIOLOGY REPORT GERRI SALMERON Start: 06-30-2020 RADIOLOGY REPORT Hpf Sc anning Start: 06-29-2020 Us uterus 1 4 wk transabdl 10/15 gestat GERRI SALMERON Start: 06-29-2020 Us uterus 1 4 wk transabdl 1/1st gestat Gerri Salmeron Work Phone: Start: 07-11-2012 CONVERTED CYTOLOGY HO[place] COOPER Janessa Zelaya Work Phone: SARS Antigen (LFIA) Services [facility] Work Phone: Streptococcus agalac tiae culture Services [facility] Work Phone: Plan of Treatment Date Care Activity Detail Author Start: 03-20-2026 DTaP/Tdap/Td vaccine (2 - Td) DTaP/Tdap/Td vaccine (2 - Td) [place] Start: 07-13-2023 Screening for malignant neoplasm of cervix Cervical cancer screen [place], [place] Start: 05-07-2022 [facility] Work Phone: Start: 05-01-2022 [facility] Work Phone: Start: 12-10-2021 Screening for malignant neoplasm of cervix Cervical cancer screen [place], [place] Start: 12-07-2020 End: 12-07-2020 Office Visit 12/07/2020 Office Visit Endocrinology Armen Pinto MD [address] [place] [address] [phone] [facility] Specialty Physicians Start: 11-08-2020 End: 11-08-2020 Routine 11/08/2020 Routine Obstetrics and Gynecology Gerri Salmeron MD [address] [place] [phone] [place] [employer] Start: 10-05-2020 End: 10-05-2020 Routine 10/05/2020 Routine Obstetrics and Gynecology Gerri Salmeron MD [address] [place] [phone] [place] [employer] Start: 07-12-2020 End: 07-12-2020 Initial 07/12/2020 Initial Obstetrics and Gynecology Gerri Salmeron MD [address] [place] [address] [place] [employer] Start: 2009 COVID-19 Vaccine (1) COVID-19 Vaccin e (1) [facility] Work Phone: Start: 1994 Varicella vaccine (1 of 2 - 2-dose childhood series) Varicella vaccine (1 of 2 - 2-dose childhood series) [place], [place] Patient Education [facility] Work Phone: Patient referral [facility] Work Phone: Immunizations Immunization Date Immunization Notes Care Provider Fa cili 05-06-2022 measles, mumps and rubella virus vaccine Services [facility] Work Phone: [facility] 05-06-2022 tetanus toxoid, redu vadim diphtheria toxoid, and acellular pertussis vaccine, adsorbed Services [facility] [employer] Phone: [facility] 01-13-2021 diphtheria, tetanus toxoids and acellular pertussis vaccine, unspecified formulation Gerri Salmeron [facility] Work Phone: 02-07-2019 Human Papillomavirus 9-valent vaccine [address] 12-04-2018 Human Papillomavirus 9-valent vaccine [address] 03-20-2016 tetanus toxoid, redu vadim diphtheria toxoid, and acellular pertussis vaccine, adsorbed [address] Payers Date Payer Category Payer Private Health Insurance [id number] 1995 Unknown [id number] 2.. [id number] 1995 Unknown [id number] 11.30. [id number] 1993 Unknown [id number] 2.. 840.1.717337.3.579.2.356 1993 Unknown [id number] 2.16. 840.1.842106.3.579.2.356 1993 Unknown [id number] 2.16. 840.1.548798.3.579.2.356 1993 Unknown [id number] 2.16. 840.1.513090.3.579.2.356 1993 Unknown [id number] 2.16. 840.1.290174.3.579.2.356 1993 Unknown [id number] 2.16. 840.1.888505.3.579.2.356 1993 Unknown [id number] 2.16. 840.1.824446.3.579.2.356 1993 Unknown [id number] 2.16 840.1.151792.3.579.2.356 1993 Unknown [id number] 2.16 840.1.474913.3.579.2.356 1993 Unknown [id number] 2.16.8 40.1.868175.3.579.2.182 1993 Unknown [id number] 2.16.8 40.1.720952.3.579.2.182 1993 Unknown [id number] 2.16.8 40.1.014730.3.579.2.182 1993 Unknown [id number] 2.16.8 40.1.388261.3.579.2.182 1993 Unknown [id number] 2.16.84 0.1.511977.3.579.2.593 1993 Unknown [id number] 2.16.84 0.1.864884.3.579.2.593 1993 Unknown [id number] 2.16.84 0.1.117833.3.579.2.1259 1993 Unknown [id number] 2.16.840 .1.946479.3.579.2.1259 1993 Unknown [id number] 2.16.840 .1.021864.3.579.2.1259 1993 Unknown [id number] 2.16.840 .1.197531.3.579.2.1259 1959 Private Health Insurance [id number] 1959 Self-pay [id number] Unknown [id number] 2.16.8 40.1.741221.3.579.2.531 Social History Date Type Detail Facility Tobacco smoking stat [facility] Unknown if ever smoked [facility] Sex Assigned At Not on file [facility] Start: 06-14-2020 End: 05-05-2022 Tobacco smoking status NHIS Former smoker [facility] Start: 03-14-2005 End: 06-14-2019 History of tobacco use Current smoker [place] Start: 06-14-2020 End: 01-13-2021 Cigarettes smoked current (pack per day) - Reported [place] Start: 06-14-2020 End: 01-13-2021 Tobacco use and exposure Never used [place] Start: 06-14-2020 End: 01-13-2021 Alcohol intake Current non-drinker of alcohol (finding) [place] Start: 12-04-2018 Tobacco Comment Vaping [place], [place] Exposure to SARS-CoV -2 (event) Not sure [place] Start: 04-27-2020 [place] Start: 1995 Sex Assigned At Female F [facility] Goals Date Patient Goal Desired Activity /State Functional Status Date Assessment Result Facility 05-07-2022 Functional status Patient at Baseline [facility] Work Phone: Mental Status Date Assessment Result Facility 05-07-2022 Cognitive function Cognitive Sta tus Patient at Baseline [facility] Work Phone: Progress note 05-07-2022 Note Date & Type Note Facility 05-07-2022 Progress note Note Date/Time May 07, 2022 7:41 am [facility] [address] [place] [address] FLIGHT COORDINATOR Progress Note Signed Patient: Janay Ozuna MR#: [id number] : 1995 Acct:[id number] Age/Sex: 26 / F Adm Date: 2 Loc: Room: [address] [place] [address] Type : ADM IN Attending Dr: Fely Wood DO Copies to: ~ Date of Service: 05/07/2022 OB - PN: Subj Subjective Post Delivery Day #: Day 2 Patient comments: no complaints and pain well controlled baby status: doing well [place] feeding status: exclusively bottle feeding OB - PN: Obj Exam Physical Exam Vital signs: Vital Signs - 8 hr 05/07/22 00:00 Temperature 97.9 F Pulse Rate [Monitor] 62 Respiratory Rate 18 Blood Pressure [Left Arm] 134/82 02 Sat by Pulse Oximetry 98 Oxygen Delivery Method Room Air Constitutional Constitutional: no acute distress and cooperative HEENT Exam Head: Present normocephalic and atraumatic ENT: Present mucous membranes moist Respiratory Exam Respiratory: Present CTA bilaterally; Absent accessory muscle use Cardiovascular Exam Cardiovascular: Present RRR, S1 and S2; Absent murmur Abdominal Exam Abdominal: Present soft; Absent distended or guarding Fundus: Present firm (U-1) Extremities Exam Extremities: Absent cyanosis, edema, calf tenderness, palpable cord or Giselle's sign Skin Exam Skin: Present intact, dry and warm; Absent rash Neurological Exam Neurological: Present alert, oriented X3 and normal speech Psychiatric Exam Psychiatric: Present normal affect OB - PN: Obj Data Labs CBC & Chem 7: 05/05/22 07:53 05/04/22 21:54 Labs: 05/04/22 21:52: RPR w/Rflx to Titer Non reactive Assessment/Plan Plan day: 2 Vaginal delivery plan (if applicable): routine care, discharge home and follow up 6 weeks Documented By: Ash Browne DO 05/07/22 0739 Signed By: <Electronically signed by Ash Browne DO> 05/07/22 0755 [facility] Work Phone: Progress note 05-06-2022 Note Date & Type Note Facility 07-23-2022 Progress note Note Date/Time May 06, 2022 9:56 am [facility] [address] [place] [address] FLIGHT COORDINATOR Progress Note Signed Patient: Janay Ozuna MR#: [id number] : 1995 Acct:[id number] Age/Sex: 26 / F Adm Date: 2 Loc: Room: [address] [place] [address] Type : ADM IN Attending Dr: Fely Wood DO Copies to: ~ Date of Service: 05/06/2022 OB - PN: Subj Subjective Post Delivery Day #: Day 1 Patient comments: no complaints and pain well controlled baby status: doing well feeding status: exclusively bottle feeding OB - PN: Obj Exam Physical Exam Vital signs: Vital Signs - 8 hr 05/06/22 07:40 Temperature 98.3 F Pulse Rate [Radial] 63 Respiratory Rate 16 Blood Pressure [Left Arm] 133/77 02 Sat by Pulse Oximetry 99 Oxygen Delivery Method Room Air Constitutional Constitutional: no acute distress HEENT Exam Head: Present normocephalic Neck Exam Neck: Present supple Respiratory Exam Comments: good effort Abdominal Exam Abdominal: Present soft Extremities Exam Extremities: Absent edema Comments: Without CCE Skin Exam Skin: Present intact Neurological Exam Neurological: Present alert and oriented X3 Psychiatric Exam Psychiatric: Present normal affect OB - PN: Obj Data Labs CBC & Chem 7: 05/05/22 07:53 05/04/22 21:54 Labs: 05/04/22 21:52: RPR w/Rflx to Titer Non reactive Assessment/Plan Plan day: 1 Vaginal delivery plan (if applicable): routine care, discharge home and follow up 6 weeks Documented By: BHAVYA Moore 05/06/22 09 54 Signed By: <Electronically signed by BHAVYA Cavazos> 05/06/22 0956 [facility] Work Phone: Procedure note 05-05-2022 Note Date & Type Note Facility 05-05-2022 Procedure note [facility] Evaluation note Note Date & Type Note Facility Evaluation note No assessment information availa ble [facility] Work Phone: Summary Purpose Family History No Family History Records Found Relationship Condition Age at Onset Recorded Date/T stephenie Not Specified Diabetes mellitus Unknown Celiac disease Unknown Advance Directives No Advanced Directives Records FoundDocuments on File Type Date Recorded Patient Jewel Staker Expl anation ACP-Advance Directive ACP-Power of Maintenance Chief Latest Code Status on File Code Status Date Activated Date Inactivated Comments Full Code 03/19/2016 7:03 AM 03/20/2016 6:59 PM Full Code 03/19/2016 2:08 AM 03/19/2016 7:03 AM Full Code 03/18/2016 10:16 AM 03/19/2016 2:08 AM Documents on File Type Date Recorded Patient Jewel Staker Expl anation ACP-Advance Directive ACP-Power of Maintenance Chief Latest Code Status on File Code Status Date Activated Date Inactivated Comments Full Code 01/13/2021 5:28 PM Full Code 01/12/2021 7:33 PM 01/13/2021 5:27 PM Full Code 03/19/2016 7:03 AM 03/20/2016 6:59 PM Full Code 03/19/2016 2:08 AM 03/19/2016 7:03 AM Full Code 03/18/2016 10:16 AM 03/19/2016 2:08 AM Advance Directive Response Recorded Date/ Time Advance Directives No May 02 7:31pm Reason for Referral Status Reason Specialty Diagnoses / Procedures Referre d By Contact Referred To Contact Closed Radiology Diagnoses test positive Amenorrhea Procedures US OB LESS THAN 14 WEEKS SINGLE OR FIRST GESTATION Gerri Salmeron MD [address] [place] [phone] Status Reason Specialty Diagnoses / Procedures Referre d By Contact Referred To Contact Closed Radiology Diagnoses Encounter for supervision of other normal in second trimester 15 weeks gestation of Procedures US OB 14 PLUS WEEKS SINGLE OR FIRST GESTATION Gerri Salmeron MD [facility] [place] [address] Status Reason Specialty Diagnoses / Procedures Referre d By Contact Referred To Contact Open Radiology Diagnoses Encounter for supervision of other normal in second trimester 25 weeks gestation of Procedures US OB TRANSVAGINAL Gerri Salmeron MD [address] [place] [phone] Status Reason Specialty Diagnoses / Procedures Referred By Contact Referred To Contact Pending Review Radiology Diagnoses Encounter for supervision of other normal in second trimester 25 weeks gestation of Procedures US OB 1 OR MORE FETUS LIMITED Gerri Salmeron MD [address] [place] [address] Assessments Diagnosis test positive examination or test, positive result Amenorrhea Absence of menstruation Diagnosis Encounter for supervision of other normal in second trimester 15 weeks gestation of state, incidental Diagnosis Encounter for supervision of other normal in second trimester 25 weeks gestation of state, incidental Diagnosis Term Hospital Course * Tony Waldrop MD - 01/14/2021 11:17 AM EDT Images from the original note were not included. Department of Obstetrics and Gynecology Labor and Delivery Attending Post Progress Note and Discharge Summary 01/14/21 SUBJECTIVE: Pt doing well. Ambulating, voiding without difficulty, tolerating regular diet. VB is minimal Denies F/C, N/V, CP, SOB, palpitations, CABAN, GI or complaints, or leg pain OBJECTIVE: Vitals: Vitals: 01/13/21 2055 01/14/21 0043 01/14/21 0442 01/14/21 0915 BP: (!) 113/54 138/63 128/86 (!) 122/57 Pulse: 64 82 57 51 Resp: 16 16 16 16 Temp: 97.9 F (36.6 C) 97.9 F (36.6 C) 97.9 F (36.6 C) 98 F (36.7 C) TempSrc: Oral Oral Oral Oral SpO2: Weight: Height: A+O x3. No distress Even, unlabored respirations CTAB RRR Soft, NT, ND Fundus is firm at U - 1 MSK 5/5 LE Neuro nonfocal Mood: good, affect full range No calf tenderness DATA: CBC: Lab Results Component Value Date WBC 12.8 01/14/2021 RBC 4.61 01/14/2021 RBC 4.66 03/18/2016 HGB 13.0 01/14/2021 HCT 39.3 01/14/2021 MCV 85.2 01/14/2021 RDW 14.7 01/14/2021 PLT 214 01/14/2021 ASSESSMENT & PLAN: 25 y.o.. PPD 1 from doing well - PP HgB WNL - Plan for DC today - Return precautions and f/u instructions given Admitting Diagnosis IUP 39+2 weeks OB History 3 Para 3 Term 3 0 AB 0 Living 3 SAB 0 TAB 0 Ectopic 0 Molar 0 Multiple 0 Live Births 3 Reasons for Admission on 01/12/2021 7:25 PM Term [Z34.90] No comment available Induction of Labor Procedures None Intrapartum Procedures Spontaneous Vaginal Delivery: See Labor and Delivery Summary Procedures None /Operative Complications Data Information for the patient's : Anthony, Baby Girl Janay [[id number]] female Weight: 7 lb 12 oz (3.515 kg) Discharge With Mother Complications: No Discharge Diagnosis Discharge Information Current Discharge Medication List START taking these medications Details ibuprofen (ADVIL;MOTRIN) 600 MG tablet Take 1 tablet by mouth every 6 hours as needed for Pain Qty: 120 tablet, Refills: 3 CONTINUE these medications which have NOT CHANGED Details Vit-Fe Fumarate-FA ( VITAMIN) 27-1 MG TABS tablet TAKE 1 TABLET BY MOUTH DAILY guaiFENesin 400 MG tablet TAKE 1 TABLET BY MOUTH EVERY 4 HOURS NEEDED No discharge procedures on file. Discharge to: Home Follow up in 6 weeks at primary OB's office . Discharge Date: 01/14/21 documented in this encounter Discharge Instructions * Attachments The following attachments cannot be sent through Care Everywhere. * Care ([place]) * OB CORONAVIRUS (COVID-19): , AND BABY CARE DISCHARGE INSTRUCTIONS documented in this encounter History of Present Illness * Vickie Singletary, DO - 01/13/2021 1:33 PM EDT Images from the original note were not included. Patient Name: Janay Ozuna Patient : 1995 Room/Bed: 0323/0323-01 Admission Date/Time: 01/12/2021 7:25 PM Date: 01/13/2021 Time: 1:33 PM Janay Ozuna is a 25 y.o. female OB History Para Term AB Living 3 2 2 0 0 2 SAB TAB Ectopic Molar Multiple Live Births 0 0 0 0 0 2 # Outcome Date GA Lbr Joe/2nd Weight Sex Delivery Anes PTL Lv 3 Current 2 Term 03/19/16 37w1d 6 lb 2 oz (2.778 kg) M Vag-Spont RODRIGO Comments: Nancy Complications: Preeclampsia Apgar1: 9 Apgar5: 9 1 Term 06/27/11 37w0d 5 lb 14 oz (2.665 kg) F Vag-Spont RODRIGO Comments: [facility]ity Gestational Age: 39w2d called to assess pt for rupture. Pt seen earlier today however presenting part was no engaged in pelvis and was deferred rupture until now The patient was seen and examined. The details of her pelvic exam can be found in the EPIC flow section of her EMR. Her pain is well controlled by resting. The baby is moving well. Tracing Review (Date of Tracing): There Is moderate Variability Vitals: 01/13/21 1001 01/13/21 1108 01/13/21 1158 01/13/21 1302 BP: 130/69 127/62 136/72 132/67 Pulse: 62 62 52 54 Resp: 18 18 18 18 Temp: 98 F (36.7 C) 98.3 F (36.8 C) 97.9 F (36.6 C) 97.9 F (36.6 C) TempSrc: Oral Oral Oral Oral Weight: Height: FHT's are 120 The tracing is Category 1 . Intervention: sherif external monitoring Membranes Are: AROM light [facility] Scalp Electrode in place: No Intrauterine Pressure Catheter in Place: No Lab Review-: LAB REVIEW: Reviewed no concerns BP 132/67 Pulse 54 Temp 97.9 F (36.6 C) (Oral) Resp 18 Ht 5' 3 (1.6 m) Wt 214 lb 8 oz (97.3 kg) LMP 04/08/2020 (Approximate) BMI 38.00 kg/m Pelvic Exam: Cervix Check: DILATION: 3 cm EFFACEMENT: 70 STATION: -3 cm CONSISTENCY: medium POSITION: mid POSITION: Cephalic, Assessment: 1. Janay Ozuna is a 25 y.o. female 39w2d 2. OB History Para Term AB Living 3 2 2 0 0 2 SAB TAB Ectopic Molar Multiple Live Births 0 0 0 0 0 2 # Outcome Date GA Lbr Joe/2nd Weight Sex Delivery Anes PTL Lv 3 Current 2 Term 03/19/16 37w1d 6 lb 2 oz (2.778 kg) M Vag-Spont RODRIGO Comments: Nancy Complications: Preeclampsia 1 Term 06/27/11 37w0d 5 lb 14 oz (2.665 kg) F Vag-Spont RODRIGO Comments: Serenity 3. Term [Z34.90] 4. Patient Active Problem List Diagnosis Date Noted Term 01/12/2021 Obesity (BMI 30-39.9) 08/02/2018 PCOS (polycystic ovarian syndrome) 08/02/2018 Insulin resistance 08/02/2018 Plan: 1. Continue with current care plan 2. AROM light meconium \ expectant management documented in this encounter Chief Complaint and Reason for Visit Chief Complaint Z3A.35 Z36.85 IUP (Intrauterine ) contractions Additional Source Comments INFORMATION SOURCE (unrecogn ized section and content) DATE CREATED AUTHOR 07/30/2018 [facility] DATE CREATED AUTHOR AUTHOR'S ORGANIZ ATION 09/15/2018 [facility] DATE CREATED AUTHOR AUTHOR'S ORGANIZ ATION [facility]20[facility] [place] DATE CREATED AUTHOR AUTHOR'S ORGANIZ ATION 01/15/2021 [facility] [place] DATE CREATED AUTHOR AUTHOR'S ORGANIZ ATION 02/18/2022 [facility] DATE CREATED AUTHOR AUTHOR'S ORGANIZ ATION 12/15/2022 [facility] DATE CREATED AUTHOR AUTHOR'S ORGANIZ ATION 07/22/2023 [facility] DATE CREATED AUTHOR AUTHOR'S ORGANIZ ATION 11/06/2023 [facility] d[facility] Specialists EPIC Source Comments (unrecognize d section and content) In the event this informatio n is protected by the Federal Confidentiality of Alcohol and Drug Abuse Patient Records regulations: The Federal rules restrict any use of the information to criminally investigate or prosecute any alcohol or drug abuse patient.[facility] Reason for Visit (unrecogniz ed section and content) Status Reason Specialty Diagnoses / Procedures Referre d By Contact Referred To Contact Closed Radiology Diagnoses test positive Amenorrhea Procedures US OB LESS THAN 14 WEEKS SINGLE OR FIRST GESTATION Gerri Salmeron MD [address] [place] [phone] Status Reason Specialty Diagnoses / Procedures Referre d By Contact Referred To Contact Closed Radiology Diagnoses Encounter for supervision of other normal in second trimester 15 weeks gestation of Procedures US OB 14 PLUS WEEKS SINGLE OR FIRST GESTATION Gerri Salmeron MD [address] [place] [phone] Status Reason Specialty Diagnoses / Procedures Referred By Contact Referred To Contact Pending Review Radiology Diagnoses Encounter for supervision of other normal in second trimester 25 weeks gestation of Procedures US OB 1 OR MORE FETUS LIMITED Gerri Salmeron MD [address] [place] [phone] Reason Comments Scheduled Induction Status Reason Specialty Diagnoses / Procedures Referre d By Contact Referred To Contact Diagnoses Term Gerri Salmeron MD [address] [place] [phone] [facility] Ordered Prescriptions (unrec ognized section and content) Prescription Sig Dispensed Refills Start Date End Da te ibuprofen (ADVIL;MOTRIN) 600 MG tablet Take 1 tablet by mouth every 6 hours as needed for Pain 120 tablet 0 01/14/2021 docusate sodium (COLACE, DULCOLAX) 100 MG CAPS Take 100 mg by mouth daily 120 capsule 0 01/14/2021 ibuprofen (ADVIL;MOTRIN) 600 MG tablet Take 1 tablet by mouth every 6 hours as needed for Pain 120 tablet 3 01/13/2021 Care Teams (unrecognized sec tion and content) Team Status: Inactive Member Role Status [facility] Primary Care Provider Active Yumiko Brown , Attending Provider Active Team Status: Inactive Member Role Status [facility] Primary Care Provider Active Fely Wood DO Admit Provider, Attending Provid er Active Team Status: Active Member Role Status [facility] Care Provider Active FOR RECORDS PERTAINING TO PATIENTS WHO ARE OR HAVE BEEN ENROLLED IN A CHEMICAL DEPENDENCY/SUBSTANCEABUSE PROGRAM, SOME INFORMATION MAY BE OMITTED. This clinical summary was aggregated from multiple sources. Caution should be exercised in using it in the provision of clinical care. This summary normalizes information from multiple sources, and as a consequence, information in this document may materially change the coding, format and clinical context of patient data. In addition, data may be omitted in some cases. CLINICAL DECISIONS SHOULD BE BASED ON THE PRIMARY CLINICAL RECORDS. [employer] provides no warranty or guarantee of the accuracy or completeness of information in this document.
[2023-11-28 08:33] LABS: Anion Gap 15.8; BUN Creatinine Ratio 23.8; Calcium 8.9 mg/dL (8.5-10.1); Carbon Dioxide 25.1 mmol/L (21.0-32.0); Chloride 103 mmol/L (98-107); Estimated GFR (African America >60 (>=60); Estimated GFR (Non-African Ame >60 (>=60); Glucose 93 mg/dL (74-106); Potassium 3.9 mmol/L (3.5-5.1); Sodium 140 mmol/L (136-145)
[2023-12-05 00:07] LABS: 17-OH Progesterone LCMS 167 ng/dL (.)
== END 2023-11-28 08:01 | disposition home or self-care (01) ==
LOC: LAB 08:00
DX: R79.89 Other specified abnormal findings of blood chemistry (principal)
CPT/HCPCS: 36415; 80048; 83498

== ENCOUNTER 2025-07-27 10:08 | Outpatient (OUT) | payer OTHER, SELFPAY ==
--- OUTSIDE RECORDS SUMMARY | 2025-07-15 11:00 | XMS_ITS | Encounter Summary ---
Author Organization [facility] Address [address] [place] [address] Care Team Providers Care Telephone Surveyor Name Role Phone Jamal Loznao APRN.CORRAL BOSS Unavailable [phone] Unavailable Source Comments In the event this information is protected by the Federal Confidentiality of Alcohol and Drug AbusePatient Records regulations: The Federal rules restrict any use of the information to criminally investigate or prosecute any alcohol or drug abuse patient.[facility] Reason for Visit * Reason Comments Reassessment Patient Education Encounter Details Date Type Department Care Team (Late st Contact Info) Description 07/15/2025 11:00 AM EDT Education General Surgery [address] [place] [address] [place] [address] Reassessment; Patient Education Social History Tobacco Use Types Packs/Day Years Used Date Smoking Tobacco: Former Cigarettes Q uit: 06/26/2015 Smokeless Tobacco: Former Comments:Quit 6 years ago Alcohol Use Standard Drinks/Week Comments Not Currently 0 (1 standard drink = 0.6 oz pur e alcohol) PHQ-2 Answer Date Recorded PHQ-2 score 0 01/26/2025 Area Deprivation Index Answer Date Eliseo rded National Score (1-100), lower number is lower ri sk 53 11/29/2023 State Score (1-10), lower number is lower risk 3 11/29/2023 Data from: https://www.neighborhoodatlas.medicine.[facility]/. Last address used for calculation [address] 11/29/2023 Comments No Sex and Gender Information Value Date Recorded Sex Assigned at Female 12/13/2023 8:30 AM EST Legal Sex Female 6:57 AM EDT Gender Identity Female 12/13/2023 8:30 AM EST Sexual Orientation Straight 12/13/2023 8: 30 AM EST documented as of this encounter Last Filed Vital Signs Vital Sign Reading Time Taken Comments Blood Pressure - - Pulse - - Temperature - - Respiratory Rate - - Oxygen Saturation - - Inhaled Oxygen Concentration - - Weight 91.6 kg (201 lb 13.3 oz) 025 11:04 AM EDT Height 162.6 cm (5' 4.02 ) 07/15/2025 1 1:04 AM EDT Body Mass Index 34.63 07/15/2025 11:04 AM EDT documented in this encounter Functional Status * Are you deaf or do you have serious difficulty hearing? Answer Date of Assessment Author No 06/30/2025 11:06 AM EDT Cailin Perez RN * Are you blind or do you have serious difficulty seeing, even when wearing glasses? Answer Date of Assessment Author No 06/30/2025 11:06 AM EDT Cailin Perez RN * Do you have serious difficulty walking or climbing stairs? Answer Date of Assessment Author No 06/30/2025 11:06 AM EDT Cailin Perez RN * Do you have difficulty dressing or bathing? Answer Date of Assessment Author No 06/30/2025 11:06 AM EDT Cailin Perez RN * Because of a physical, mental, or emotional condition, do you have difficulty doing errands alone such as visiting a doctor's office or shopping? Answer Date of Assessment Author No 06/30/2025 11:06 AM EDT Cailin Perez RN documented as of this encounter Mental Status * Because of a physical, mental, or emotional condition, do you have serious difficulty concentrating, remembering, or making decisions? Answer Entry Date Author No 06/30/2025 11:06 AM EDT Cailin Perez RN documented in this encounter Patient Instructions * Patient Instructions* Christel Simi, RD - 07/15/2025 12:02 PM EDT 1. Once eating Phase 3 diet, start post-op bariatric vitamins including: Some examples of vitamins/mineral companies: - Bariatric Fusion: 4 Complete Multivitamin chewables per day OR 1 Multivitamin capsule and 8398-5660 mg calcium citrate per day OR 2 Multivitamin soft chews per day + 3 calcium citrate soft chews + 1 iron soft chew per day www.bariatricfusion.gDecide - [employer]: 1 Bariatric Multivitamin w/ iron (capsule or chewable) and 8958-4793 mg calcium citrate per day www.[employer] Systems - Bariatric Choice: 1 Once Daily Bariatric Multivitamin capsule and 4161-8625 mg calcium citrate per day OR 4 All-in-One Bariatric Multivitamin chewables per day www.bariatricchoice.gDecide - Bariatric Advantage: 1 Ultra Solo multivitamin w/ iron (chewable or capsule) OR 2 chewable Advanced Multi EA w/ iron and 1446-3194 mg calcium citrate per day OR 2 Multi Chewy Bites and 4179-1930 mgcalcium citrate and 45-60 mg iron per day www.bariatricadVoltage Securityage.gDecide - Bariatric Pal: 1 Multivitamin One (chewable or capsule) and 3195-3651 mg calcium citrate per day OR 4 All-in-One Multivitamin chewables per day www.noodls.bariatricpal.gDecide/collections/bariatric-vitamins - Barilife: 1 Just One Bariatric Multivitamin w/ iron (chewable or capsule) and 0256-0671 mg calcium citrate per day www.bariSpendSmart Payments Company.gDecide - Barimelts: 2 Multivitamin w/ iron tablets and 1484-9344 mg calcium citrate per day www.barimelts.gDecide - Continue daily Super B-Complex/B100 until you are 3 months post-op 2. Protein goal: 79 grams protein/day 3. Fluid goal: 64 ounces per day (no carbonation, caffeine, calories, alcohol) - separate foods andfluids by 20 minutes, small sips, no straw 4. Exercise goal: begin low intensity exercise until cleared by surgeon. 5. Practice mindful eating habits-take small portions, eat slowly, and chew thoroughly You have lost 8% total weight loss (average 6-9% at 1 month) The Bariatric & Metabolic [place] at [facility] has 2 virtual support group meetings: This is the [employer] link with meeting number that will be used for all of the SUNDAY virtual support groups this year, on the Sunday of each month 5:30-6:30PM Join from the meeting link [email or web address] Join by meeting number Meeting number (access code): [phone] Meeting password: [email or web address] The schedule with dates, times, topics, and facilitators can be found here: [email or web address] This is the [employer] link with meeting number that will be used for the Open Discussion ( Food for Thought ) support group on the Sunday of each month 5:30-6:30PM Join from the meeting link [email or web address] Join by meeting number Meeting number (access code): [phone] Meeting password: [email or web address] Hope to see you there! Nutrition Monitoring & Evaluation: BMI < 30 Criteria: patient recall Need for Follow up: 1 month post op, as already scheduled documented in this encounter Progress Notes * iSmi Kearney RD - 07/15/2025 11:00 AM EDT AMBULATORY PATIENT EDUCATION NOTE-Shared Nutrition Group TOPIC: LIFE STYLE CHANGES: Post-op weight loss surgery: Diet and Exercise READINESS TO LEARN COGNITIVE ABILITY: Alert and oriented MOTIVATION TO LEARN: Interested FAMILY SUPPORT: Unable to assess - Family not present INSTRUCTION PROVIDED TO: Patient PATIENT LEARNS BEST BY: Multiple Methods FACTORS AFFECTING LEARNING: None PHYSICAL LIMITATIONS AFFECTING LEARNING: None LEARNING RESPONSE DIAGNOSIS: Inadequate protein-energy intake, related to: s/p bariatric surgery, as evidenced by patient update, diet recall, and group discussion Overweight Obesity, related to; food/nutrition - related knowledge deficit, as evidenced by BMI above normative standard for age and gender Malnutrition Screening Significant unintentional weight loss? No Eating less than 75% of usual intake for more than 2 weeks? Yes , advancing diet per bariatric protocol Nutritional status: METHOD OF INSTRUCTION: Individual instruction Group class instruction PATIENT / FAMILY RESPONSE: Nutrition outcome statement: Expect attention to diet to assist with weight management and minimum 1200 calories/2 liters of fluids per day. Patient participated in a 2 week post-op shared nutrition group. Post-op weight loss surgery (LSG) (Dr. Malcolm) . Weight loss: 18 lbs since initial assessment (219 lbs); 8% loss total body weight. Pre surgery weight: 216 lbs. Weight loss tracking as expected from surgery. Tolerating phase 3 diet without difficulty. Protein needs estimated at 79 grams protein per day (1.2 g/kg IBW kg). Current intake meeting ~ 50% protein needs. Fluid consumption adequate and includes water as primary beverage Patient not yet taking recommended vitamin/minerals. Exercise includes daily walking. Labs not available to evaluate. Reviewed nutrition principles of: 1. Once eating Phase 3 diet, start post-op bariatric vitamins including: Some examples of vitamins/mineral companies: - Bariatric Fusion: 4 Complete Multivitamin chewables per day OR 1 Multivitamin capsule and 8812-5055 mg calcium citrate per day OR 2 Multivitamin soft chews per day + 3 calcium citrate soft chews + 1 iron soft chew per day www.bariatricfusion.com - [employer]: 1 Bariatric Multivitamin w/ iron (capsule or chewable) and 7920-8698 mg calcium citrate per day www.Leap.itareAutonomous Marine Systems.gDecide - Bariatric Choice: 1 Once Daily Bariatric Multivitamin capsule and 0396-8030 mg calcium citrate per day OR 4 All-in-One Bariatric Multivitamin chewables per day www.bariatricchoice.gDecide - Bariatric Advantage: 1 Ultra Solo multivitamin w/ iron (chewable or capsule) OR 2 chewable Advanced Multi EA w/ iron and 2632-0408 mg calcium citrate per day OR 2 Multi Chewy Bites and 5906-0951 mgcalcium citrate and 45-60 mg iron per day www.bariatricadVoltage Securityage.gDecide - Bariatric Pal: 1 Multivitamin One (chewable or capsule) and 2607-9740 mg calcium citrate per day OR 4 All-in-One Multivitamin chewables per day www.noodls.Yoursphere Mediapal.com/collections/bariatric-vitamins - Barilife: 1 Just One Bariatric Multivitamin w/ iron (chewable or capsule) and 6006-4512 mg calcium citrate per day www.[employer] Technology.gDecide - Barimelts: 2 Multivitamin w/ iron tablets and 0512-3185 mg calcium citrate per day www.Bizimply.gDecide - Continue daily Super B-Complex/B100 until you are 3 months post-op 2. Protein goal: 79 grams protein/day 3. Fluid goal: 64 ounces per day (no carbonation, caffeine, calories, alcohol) - separate foods andfluids by 20 minutes, small sips, no straw 4. Exercise goal: begin low intensity exercise until cleared by surgeon. 5. Practice mindful eating habits-take small portions, eat slowly, and chew thoroughly You have lost 8% total weight loss (average 6-9% at 1 month) The Bariatric & Metabolic [place] at [facility] has 2 virtual support group meetings: This is the [employer] link with meeting number that will be used for all of the SUNDAY virtual support groups this year, on the Sunday of each month 5:30-6:30PM Join from the meeting link [email or web address] Join by meeting number Meeting number (access code): [phone] Meeting password: [email or web address] The schedule with dates, times, topics, and facilitators can be found here: [email or web address] This is the [employer] link with meeting number that will be used for the Open Discussion ( Food for Thought ) support group on the Sunday of each month 5:30-6:30PM Join from the meeting link [email or web address] Join by meeting number Meeting number (access code): [phone] Meeting password: [email or web address] Hope to see you there! Nutrition Monitoring & Evaluation: BMI < 30 Criteria: patient recall Need for Follow up: 1 month post op, as already scheduled MNT Billing Type: Ambulatory Group 2 units Total Time (mins): [address] documented in this encounter Plan of Treatment Upcoming Encounters Date Type Department Care Team (Latest Contact Info) Description 08/10/2025 11:00 AM EDT Office Visit General Surgery [address] [facility] [place] [address] Randa Boudreaux, MEMORY CARE DIRECTOR.CORRAL BOSS [address] [address] 1 month post op LRYGB 07/06/25 TA 09/30/2025 3:00 PM EST Education General Surgery [address] [place], [place] [address] [address] [place] [address] 3 month post op LRYGB 07/06/25 TA 10/05/2025 2:30 PM EST Distance Health General Surgery [address] [place] [address] [place] [address] Randa Boudreaux, MEMORY CARE DIRECTOR.CORRAL BOSS [address] [address] 3 month post op LRYGB 07/06/25 TA documented as of this encounter Goals Goal Patient Goal Type Associated Problems Recent Progress Patient-Stated? Author Bariatric Surgery Lace Finisher Care Plan Bariatric Surgery Lace Finisher No Drew Hernandez Autogenerated Goal Care Plan Autogenerated Problem No Drew Hernandez documented as of this encounter Visit Diagnoses Diagnosis S/P laparoscopic sleeve gastrectomy- Primary Bariatric surgery status Obesity, Class I, BMI 30-34.9 Obesity, unspecified Dietary counseling and surveillance Dietary surveillance and counseling documented in this encounter Additional Health Concerns Active Problems Noted Date Diagnosed Date Bariatric Surgery Lace Finisher 06/17/2025 Autogenerated Problem 06/17/2025 documented as of this encounter Care Teams Telephone Surveyor Relationship Specialty Start Date End Date Jamal Lozano APRN.CNP Referring Internal Medicine 11/05/[address] [facility] [place] [address] Registered Dietitian Nutrition 06/24/25 documented as of this encounter
--- NOTE | 2025-07-27 10:13 | ECG_ITS ---
[facility] Test Date: 2025-07-27 Pat Name: JANAY OZUNA Department: Room: - Gender: Female Email Marketing Coordinator: : 1995 Requested By: SMITH SUMNER Order Number: [id number] Reading MD: LIDA ARECHIGA M.D. Measurements Intervals Stacy Rate: 51 P: 43 MT: 147 QRS: 0 QRSD: 92 T: 0 QT: 425 QTc: 394 Interpretive Statements SINUS BRADYCARDIA Borderline ECG No previous ECG available for comparison Electronically Signed On 07-27-2025 12:57:32 EDT by LIDA ARECHIGA M.D.
--- OUTSIDE RECORDS SUMMARY | 2025-07-27 10:13 | XMS_ITS | Encounter Summary ---
Author Organization [facility] Address [address] [place] [address] Care Team Providers Care Care Aide Name Role Phone Jamal Lozano APRN.CURING OVEN TENDER Unavailable [phone] Unavailable Source Comments In the event this information is protected by the Federal Confidentiality of Alcohol and Drug AbusePatient Records regulations: The Federal rules restrict any use of the information to criminally investigate or prosecute any alcohol or drug abuse patient.[facility] Encounter Details Date Type Department Care Team (Late st Contact Info) Description 01/23/2025 Patient Msg General Surgery [address] [place], [place] [id number] Provider, [facility] Nutrition Summary Social History Tobacco Use Types Packs/Day Years Used Date Smoking Tobacco: Former Cigarettes Smokeless Tobacco: Former Comments:Quit 6 years ago Alcohol Use Standard Drinks/Week Comments Not Currently 0 (1 standard drink = 0.6 oz pur e alcohol) PHQ-2 Answer Date Recorded PHQ-2 score 0 01/26/2025 Area Deprivation Index Answer Date Eliseo rded National Score (1-100), lower number is lower ri sk 53 11/29/2023 State Score (1-10), lower number is lower risk 3 11/29/2023 Data from: https://www.neighborhoodatlas.medicine.[facility].edu/. Last address used for calculation [address] 11/29/2023 Comments No Sex and Gender Information Value Date Recorded Sex Assigned at Female 12/13/2023 8:30 AM EST Legal Sex Female 6:57 AM EDT Gender Identity Female 12/13/2023 8:30 AM EST Sexual Orientation Straight 12/13/2023 8: 30 AM EST documented as of this encounter Plan of Treatment Upcoming Encounters Date Type Department Care Team (Latest Contact Info) Description 08/10/2025 11:00 AM EDT Office Visit General Surgery [address] [place] [address] Randa Boudreaux, LIANNA.CURING OVEN TENDER [address] [address] 1 month post op LRYGB 07/06/25 TA 09/30/2025 3:00 PM EST Education General Surgery [address] [place] [address] [place], [place] [id number] 3 month post op LRYGB 07/06/25 TA 10/05/2025 2:30 PM EST [facility] General Surgery [facility] [place] [address] Randa Boudreaux, PRESS CLIPPINGS CUTTER AND PASTER.CURING OVEN TENDER [address] [address] 3 month post op LRYGB 07/06/25 TA documented as of this encounter Visit Diagnoses Not on filedocumented in this encounter Care Teams Care Aide Relationship Specialty Start Date End Date Jamal Lozano APRN.CURING OVEN TENDER Referring Internal Medicine 11/05/[address] [place] [address] Registered Dietitian Nutrition 06/24/25 documented as of this encounter
--- OUTSIDE RECORDS SUMMARY | 2025-07-27 10:13 | XMS_ITS | Encounter Summary ---
Author Organization [facility] Address [address] [place] [address] Care Team Providers Care Rapid Outsole Stitcher Name Role Phone Jamal Lozano APRN.LOGGING RAFTER LABORER Unavailable [phone] Unavailable Source Comments In the event this information is protected by the Federal Confidentiality of Alcohol and Drug AbusePatient Records regulations: The Federal rules restrict any use of the information to criminally investigate or prosecute any alcohol or drug abuse patient.[facility] Encounter Details Date Type Department Care Team (Late st Contact Info) Description 02/07/2024 Patient Msg General Surgery [address], [place] [id number] Provider, Rosalio Missed nutrition appointment Social History Tobacco Use Types Packs/Day Years Used Date Smoking Tobacco: Former Cigarettes Smokeless Tobacco: Former Comments:Quit 6 years ago Alcohol Use Standard Drinks/Week Comments Not Currently 0 (1 standard drink = 0.6 oz pur e alcohol) PHQ-2 Answer Date Recorded PHQ-2 score 0 01/07/2024 Area Deprivation Index Answer Date Eliseo rded National Score (1-100), lower number is lower ri sk 53 11/29/2023 State Score (1-10), lower number is lower risk 3 11/29/2023 Data from: https://www.neighborhoodatlas.medicine.[facility].edu/. Last address used for calculation [address] 11/29/2023 Comments Unknown Sex and Gender Information Value Date Recorded Sex Assigned at Female 12/13/2023 8:30 AM EST Legal Sex Female 6:57 AM EDT Gender Identity Female 12/13/2023 8:30 AM EST Sexual Orientation Straight 12/13/2023 8: 30 AM EST documented as of this encounter Plan of Treatment Upcoming Encounters Date Type Department Care Team (Latest Contact Info) Description 08/10/2025 11:00 AM EDT Office Visit General Surgery [address] [place] [address] Randa Boudreaux, LIANNA.LOGGING RAFTER LABORER [address] [address] 1 month post op LRYGB 07/06/25 TA 09/30/2025 3:00 PM EST Education General Surgery [address] [place] [address] [place], [place] [id number] 3 month post op LRYGB 07/06/25 TA 10/05/2025 2:30 PM EST [facility] General Surgery [facility] [place] [address] Randa Boudreaux, ADJUNCT PHILOSOPHY FACULTY.LOGGING RAFTER LABORER [address] [address] 3 month post op LRYGB 07/06/25 TA documented as of this encounter Visit Diagnoses Not on filedocumented in this encounter Care Teams Rapid Outsole Stitcher Relationship Specialty Start Date End Date Jamal Lozano APRN.LOGGING RAFTER LABORER Referring Internal Medicine 11/05/[address] [place] [address] Registered Dietitian Nutrition 06/24/25 documented as of this encounter
--- OUTSIDE RECORDS SUMMARY | 2025-07-27 10:13 | XMS_ITS | Clinical Summary ---
Author Organization [facility] Address [address] [place] [address] Care Team Providers Care Apn Name Role Phone Calliejayson Raleigh Jaylon MARI Unavailable [phone] Bernardo Londono DO Primary Care Provider [phone] Allergies No known active allergies Medications omeprazole (PriLOSEC) [address] capsule Take 40 mg by mouth in the morning. 5 Active ondansetron ODT (Zofran-ODT) 4 MG disintegrating tablet Take 4 mg by mouth every 8 (eight) hours if needed 5 Active oxyCODONE (Roxicodone) 5 MG immediate release tablet Take 5 mg by mouth every 8 (eight) hours if needed 5 07/03/20 25 senna-docusate (Mariya-Colace) 8.6-50 MG tablet Take 1 tablet by mouth in the morning. 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 High serum dehydroepiandrosterone (DHEA) 023 Encounter to establish care 08/29/2023 Anxiety and depression 08/29/2023 Carpal tunnel syndrome 03/01/2023 Gestational diabetes mellitu s (GDM) in third trimester ([facility]) 03/01/2023 Insulin resistance 08/02/2018 Obesity (BMI 30-39.9) 08/02/2018 Resolved Problems Problem Noted Date Diagnosed Date Resolved Date PCOS (polycystic ovarian syndrome) 08/02/2018 09/27/2023 Encounters Date Type Department Care Team Description 07/08/2025 1:20 PM EDT Consult [facility] Malissa [facility] [address] [place] [phone] Yadiel Shafer DO Pre-op examination; Dyspareunia in female; 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/2025 Patient Outreach [facility] [address] [place] [address] Georgiana Gamez LPN 06/04/2025 Telephone [facility] [address] [place] [address] Elvia Rene MA 06/02/2025 11:30 AM EDT Procedure Visit [facility] [address] [place] [phone] Yadiel Shafer DO Skin tag; Exposure to STD; Vaginal discharge; Hymenal remnant 06/02/2025 External Result Encounter [facility] External Department Unsolicited Yadiel Shafer DO 05/18/2025 Telephone [facility] Bella ARORA [address] [place] [phone] Yumiko Brown DO from Last 3 Months Immunizations Immunization Administration Dates Next Due HPV 9-Valent 07/22/2019,02/07/2019,12/04/2018 MMR 05/06/2022 Tdap 05/06/2022,03/20/2016 Family History Medical History Relation Name Comments No Known Problems Brother No Known Problems Father Celiac disease Maternal Grandmother No Known Problems Mother Arthritis Paternal Grandmother Diabetes Paternal Grandmother Hypertension Paternal Grandmother No Known Problems Sister 1 Healthy No Known Problems Sister 2 Healthy No Known Problems Sister 3 Healthy Relation Name Status Comments Brother 1 Brother Daughter 2 Daughters Father Alive Maternal Grandmother Mother Alive Paternal Grandmother Sister 1 Alive Sister 2 Alive Sister 3 Alive Son 2 Sons Social History Tobacco Use Types Packs/Day Years Used Date Smoking Tobacco: Former Cigarettes Q uit: 10/15/2019 Smokeless Tobacco: Never Tobacco Cessation:Counseling Given: Not Answered Alcohol Use Standard Drinks/Week Comments Not Currently 0 (1 standard drink = 0.6 oz pure alcohol) Caffeine intake: 1- c green tea AUDIT-C Answer Date Recorded Q1: How often do you have a drink containing alcohol? Never 12/22/2024 Q2: How many drinks containi ng alcohol do you have on a typical day when you are drinking? Patient does not drink Q3: How often do you have si x or more drinks on one occasion? Never 12/22/2024 Education Answer Date Recorded What is the highest level of school you have completed or the highest degree you have received? High school graduate 09/18/2023 Comments No Sex and Gender Information Value Date Recorded Sex Assigned at Not on file Legal Sex Female 11:23 PM EDT Gender Identity Not on file Sexual Orientation Not on file Last Filed Vital Signs Vital Sign Reading Time Taken Comments Blood Pressure 112/66 07/08/2025 1:41 PM EDT Pulse 67 12/22/2024 1:31 PM EDT Temperature 37.1 C (98.8 F) 12/22/2024 1:31 PM EDT Respiratory Rate 18 08/15/2023 1:32 PM EDT Oxygen Saturation 96% 12/22/2024 1:31 PM EDT Inhaled Oxygen Concentration - - Weight 93 kg (205 lb) 07/08/2025 1:41 PM EDT Height 160 cm (5' 3 ) 12/22/2024 1:31 PM EDT Body Mass Index 36.31 12/22/2024 1:31 PM EDT Plan of Treatment Upcoming Encounters Date Type Department Care Team (Late st Contact Info) Description 08/20/2025 2:30 PM EST Office Visit [facility] [address] [place] [phone] Belinda Douglas PA [address] [place] [address] Health Maintenance Due Date Last Done Comments Pap Smear 07/11/2015 07/11/2012 Influenza Vaccine (#1) 2025 Cervical Cancer Screening 10/25/2026 HPV/Cotest 10/25/2026 10/25/2021 Procedures Procedure Name Priority Date/Time Associated Diagnosis Comments RECURRENT VAGINITIS (HTRX) Routine 06/02/2025 12:15 PM EDT THINPREP TIS PAP REFLEX HPV MRNA E6/E7 (40403) Routine 10/25/2021 from Last 3 Months or Most Recently Relevant to Health Maintenance Results * (ABNORMAL) RECURRENT VAGINITIS (HTRX) (06/02/2025 12:15 PM EDT) [facility] ATOPOBIUM VAGINAE 25.277(A) 19.961 - 24.689 ppm 06/03/2025 8:06 AM EDT [facility] ATOPOBIUM VAGINAE Detected(A) 19.961 - 24.689 ppm 06/03/2025 8:06 AM EDT [facility] BVAB 2,3 (BACTERIAL VAGINOSIS ASSOCIATED BACTERIA 2, 3); MOBILUNCUS SPP 0 19.961 - 24.689 ppm 06/03/2025 8:06 AM EDT [facility] (BACTERIAL VAGINOSIS ASSOCIATED BACTERIA 2, 3); MOBILUNCUS SPP Not Detected 19.961 - 24.689 ppm 06/03/2025 8:06 AM EDT [facility] KAYE ALBICANS, PARAPSILOSIS, TROPICALIS 0 23.000 - 30.347 ppm 06/03/2025 8:06 AM EDT [facility] KAYE ALBICANS, PARAPSILOSIS, TROPICALIS Not Detected 23.000 - 30.347 ppm 06/03/2025 8:06 AM EDT [facility] KAYE GLABRATA 0 23.000 - 31.618 ppm 06/03/2025 8:06 AM EDT [facility] KAYE GLABRATA Not Detected 23.000 - 31.618 ppm 06/03/2025 8:06 AM EDT [facility] KAYE KRUSEI 0 23.000 - 30.873 ppm 06/03/2025 8:06 AM EDT [facility] KAYE KRUSEI Not Detected 23.000 - 30.873 ppm 06/03/2025 8:06 AM EDT [facility] CHLAMYDIA TRACHOMATIS 0 23.000 - 31.586 ppm 06/03/2025 8:06 AM EDT [facility] CHLAMYDIA TRACHOMATIS Not Detected 23.000 - 31.586 ppm 06/03/2025 8:06 AM EDT [facility] GARDNERELLA VAGINALIS 0 19.961 - 24.689 ppm 06/03/2025 8:06 AM EDT [facility] GARDNERELLA VAGINALIS Not Detected 19.961 - 24.689 ppm 06/03/2025 8:06 AM EDT [facility] MEGASPHAERA (TYPES 1, 2) 0 19.961 - 24.689 ppm 06/03/2025 8:06 AM EDT [facility] BRENNASPHAERA (TYPES 1, 2) Not Detected 19.961 - 24.689 ppm 06/03/2025 8:06 AM EDT [facility] NEISSERIA GONORRHOEAE 0 23.000 - 32.587 ppm 06/03/2025 8:06 AM EDT [facility] NEISSERIA GONORRHOEAE Not Detected 23.000 - 32.587 ppm 06/03/2025 8:06 AM EDT [facility] TRICHOMONAS VAGINALIS 0 23.000 - 31.995 ppm 06/03/2025 8:06 AM EDT [facility] TRICHOMONAS VAGINALIS Not Detected 23.000 - 31.995 ppm 06/03/2025 8:06 AM EDT [facility] MYCOPLASMA GENITALIUM 0 19.961 - 24.689 ppm 06/03/2025 8:06 AM EDT [facility] MYCOPLASMA GENITALIUM Not Detected 19.961 - 24.689 ppm 06/03/2025 8:06 AM EDT [facility] Tissue 06/02/2025 12:1 5 PM EDT 06/03/2025 2:19 AM EDT us Yadiel Soni DO LAB BLOOD ORDERABLES Final Resul t [facility] [address] [facility] [address] [place] [address] * THINPREP TIS PAP REFLEX HPV MRNA E6/E7 (10456) (10/25/2021) CLINICAL INFORMATION: None given [facility] LMP: NONE GIVEN [facility] PREV. PAP: 2,020 [facility] PRE[facility]. BX: NONE GIVEN [facility] SOURCE: Cervix, Endocervix [facility] STATEMENT OF ADEQUACY: SEE COMMENT [facility] Comment: Satisfactory for evaluation. Endocervical/transformation zone component present. INTERPRETATION /RESULT: Negative for intraepithelial lesion or malignancy. [facility] COMMENT: This Pap test has been evaluated with computer assisted technology. [facility] CYTOTECHNOLOGI ST: SEE COMMENT [facility] Comment: JE, CT(ASCP) CT screening location: [facility], [address] [place] [address]. COMMENT SEE COMMENT [facility] Comment: EXPLANATORY NOTE: The Pap is a screening test for cervical cancer. It is not a diagnostic test and is subject to false negative and false positive results. It is most reliable when a satisfactory sample, regularly obtained, is submitted with relevant clinical findings and history, and when the Pap result is evaluated along with historic and current clinical information. 10/25/2021 Yumiko Brown DO [facility] Final Resul t [facility] from Last 3 Months or Most Recently Relevant to Health Maintenance Insurance [facility] MEDICAID Care Teams Apn Relationship Specialty Start Date End Date Raleigh Cleary DO [address] [place] [address] PCP - [facility] 04/14/24 Bernardo Londono DO [address] [place] [address] PCP - General Family Medicine 12/22/24
--- OUTSIDE RECORDS SUMMARY | 2025-07-27 10:13 | XMS_ITS | Encounter Summary ---
Author Organization [facility] Address [address] [place] [address] Care Team Providers Care Shell Coremaker Name Role Phone Jamal Lozano APRN.INTELLIGENCE SENIOR SERGEANT Unavailable Simi Kearney RD Unavailable Source Comments In the event this information is protected by the Federal Confidentiality of Alcohol and Drug AbusePatient Records regulations: The Federal rules restrict any use of the information to criminally investigate or prosecute any alcohol or drug abuse patient.[facility] Encounter Details Date Type Department Care Team (Late st Contact Info) Description 06/18/2025 Patient Msg General Surgery [address] [place], [place] [phone] Provider, Ccf Post Op Appointment Scheduling Social History Tobacco Use Types Packs/Day Years [...] is lower risk 3 11/29/2023 Data from: https://www.neighborhoodatlas.medicine.[facility].edu/. Last address used for calculation [address] [...] 11:00 AM EDT Office Visit General Surgery [address] [place] [address] Randa Boudreaux, SOCIAL MEDIA MARKETER.INTELLIGENCE SENIOR SERGEANT [address] [address] 1 month post op LRYGB 07/06/25 TA 09/30/2025 3:00 PM EST Education General Surgery [address] [place] [address] [place], [place] [id number] 3 month post op LRYGB 07/06/25 TA 10/05/2025 2:30 PM EST Distance Health General Surgery [address] [place] [address] Randa Boudreaux, SOCIAL MEDIA MARKETER.INTELLIGENCE SENIOR SERGEANT [address] [address] 3 month post op LRYGB 07/06/25 TA documented as of this encounter Goals Goal Patient Goal Type Associated Problems Recent Progress Patient-Stated? Author Bariatric Surgery Medical Laboratory Technicians Care Plan Bariatric Surgery Medical Laboratory Technicians No Drew Hernandez Autogenerated Goal Care Plan Autogenerated Problem No Drew Hernandez documented as of this encounter Visit Diagnoses Not on filedocumented in this encounter Additional Health Concerns Active Problems Noted Date Diagnosed Date Bariatric Surgery Medical Laboratory Technicians 06/17/2025 Autogenerated Problem 06/17/2025 documented as of this encounter Care Teams Shell Coremaker Relationship Specialty Start Date End Date Jamal Lozano APRN.CNP Referring Internal Medicine 11/05/[address] [place] [address] Registered Dietitian Nutrition 06/24/25 documented as of this encounter
--- OUTSIDE RECORDS SUMMARY | 2025-07-27 10:13 | XMS_ITS | Encounter Summary ---
Author Organization [facility] Address [address] [place] [address] Care Team Providers Care Tone Regulator Name Role Phone Jamal Lozano APRN.COIL MACHINE SUPERVISOR Unavailable Simi Kearney RD Unavailable Source Comments In the event this information is protected by the Federal Confidentiality of Alcohol and Drug AbusePatient Records regulations: The Federal rules restrict any use of the information to criminally investigate or prosecute any alcohol or drug abuse patient.[facility] Encounter Details Date Type Department Care Team (Late st Contact Info) Description 02/11/2024 Patient Msg Cardiology [address] [phone] Provider, Ccf Appointment Cancellation Request Social History Tobacco Use Types Packs/Day Years [...] risk 3 11/29/2023 Data from: https://www.neighborhoodatlas.medicine.[facility].edu/. Last address used for calculation [...] 11:00 AM EDT Office Visit General Surgery [address] [place] [address] Randa Boudreaux, TRANSCRIBER.COIL MACHINE SUPERVISOR [address] [place] [id number] 1 month post op LRYGB 07/06/25 TA 09/30/2025 3:00 PM EST Education General Surgery [address] [place] [address] [place] [id number] 3 month post op LRYGB 07/06/25 TA 10/05/2025 2:30 PM EST [facility] General Surgery [address] [place] [address] Randa Boudreaux, TRANSCRIBER.COIL MACHINE SUPERVISOR [address] [address] 3 month post op LRYGB 07/06/25 TA documented as of this encounter Visit Diagnoses Not on filedocumented in this encounter Care Teams Tone Regulator Relationship Specialty Start Date End Date Jamal Lozano APRN.COIL MACHINE SUPERVISOR Referring Internal Medicine 11/05/[address] [place] [address] Registered Dietitian Nutrition 06/24/25 documented as of this encounter
--- OUTSIDE RECORDS SUMMARY | 2025-07-27 10:13 | XMS_ITS | Encounter Summary ---
Author Organization [facility] Address [address] [facility] [place] [address] Care Team Providers Care Production Control Supervisor Name Role Phone Paty Crow DO Unavailable [phone] Chely Branham MD, IBCLC Primary Care Provid er Raleigh Cleary DO Primary Care Provider [phone] Raleigh Cleary DO Unavailable [phone] Bernardo Londono DO Primary Care Provider [phone] Encounter Details Date Type Department Care Team (Late st Contact Info) Description 07/12/2023 Orders Only [facility] Medicine [address] [place] [phone] Chely Branham MD, IBCLC [address] [place] [address] Social History Tobacco Use Types Packs/Day Years Used Date Smoking Tobacco: Former Cigarettes Smokeless Tobacco: Never Alcohol Use Standard Drinks/Week Comments Not Currently 0 (1 standard drink = 0.6 oz pur e alcohol) Comments Unknown Sex and Gender Information Value Date Recorded Sex Assigned at Not on file Legal Sex Female 11:23 PM EDT Gender Identity Not on file Sexual Orientation Not on file documented as of this encounter Plan of Treatment Upcoming Encounters Date Type Department Care Team (Late st Contact Info) Description 08/20/2025 2:30 PM EST Office Visit [facility] AR[facility]A [address] [phone] Belinda Douglas PA [address] [facility] [place] [address] documented as of this encounter Procedures Procedure Name Priority Date/Time Associated Diagnosis Comments WHITE BLOOD CELL COUNT Routine 07/12/2023 11:02 AM EDT RED BLOOD COUNT Routine 07/12/2023 11:02 AM EDT HEMOGLOBIN Routine 07/12/2023 11:02 AM EDT documented in this encounter Results * WBC (07/12/2023 11:02 AM EDT) Blood Venous blood specimen / Unknown us Chely Branham MD, IBCLC LAB BLOOD ORDERABLES Final Result * Red blood count (07/12/2023 11:02 AM EDT) Blood Venous blood specimen / Unknown us Chely Branham MD, IBCLC LAB BLOOD ORDERABLES Final Result * Hemoglobin (07/12/2023 11:02 AM EDT) Blood Venous blood specimen / Unknown us Chely Branham MD, IBCLC LAB BLOOD ORDERABLES Final Result documented in this encounter Visit Diagnoses Not on filedocumented in this encounter Care Teams Production Control Supervisor Relationship Specialty Start Date End Date Paty Crow DO [address] [place] [address] PCP - [facility] 01/13/23 4 Chely Branham MD, IBCLC [address] [place] [address] PCP - General Family Medicine 07/11/23 08/15/23 Raleigh Cleary DO [address] [place] [address] PCP - General Internal Medicine 08/16/23 12/21/24 Raleigh Cleary DO [address] [place] [address] PCP - [facility] 04/14/24 Bernardo Londono DO [address] [place] [address] PCP - General Family Medicine 12/22/24 documented as of this encounter
--- OUTSIDE RECORDS SUMMARY | 2025-07-27 10:13 | XMS_ITS | Encounter Summary ---
Author Organization [facility] Address [address] [place] [address] Care Team Providers Care Church History Professor Name Role Phone Jamal Lozano APRN.ARTILLERY SPECIALIST Unavailable Simi Kearney RD Unavailable Source Comments In the event this information is protected by the Federal Confidentiality of Alcohol and Drug AbusePatient Records regulations: The Federal rules restrict any use of the information to criminally investigate or prosecute any alcohol or drug abuse patient.[facility] Encounter Details Date Type Department Care Team (Late st Contact Info) Description 06/24/2025 Patient Msg General Surgery [address] [place] [phone] Provider, Ccf Nutrition Summary Social History Tobacco [...] is lower risk 3 11/29/2023 Data from: https://www.neighborhoodatlas.medicine.[facility].edu/. Last address used for calculation [address] [...] 11:00 AM EDT Office Visit General Surgery [address] [place] [address] Randa Boudreaux, ASSISTANT MANAGER BILINGUAL.ARTILLERY SPECIALIST [address] [address] 1 month post op LRYGB 07/06/25 TA 09/30/2025 3:00 PM EST Education General Surgery [address] [place] [address] [place], [place] [phone] 3 month post op LRYGB 07/06/25 TA 10/05/2025 2:30 PM EST Distance Health General Surgery [id number] [place] [address] [place] [address] Randa Boudreaux, ASSISTANT MANAGER BILINGUAL.ARTILLERY SPECIALIST [address] [address] 3 month post op LRYGB 07/06/25 TA documented as of this encounter Goals Goal Patient Goal Type Associated Problems Recent Progress Patient-Stated? Author Bariatric Surgery Retail Selling Floor Leader Care Plan Bariatric Surgery Retail Selling Floor Leader No Drew Hernandez Autogenerated Goal Care Plan Autogenerated Problem No Drew Hernandez documented as of this encounter Visit Diagnoses Not on filedocumented in this encounter Additional Health Concerns Active Problems Noted Date Diagnosed Date Bariatric Surgery Retail Selling Floor Leader 06/17/2025 Autogenerated Problem 06/17/2025 documented as of this encounter Care Teams Church History Professor Relationship Specialty Start Date End Date Jamal Lozano APRN.CNP Referring Internal Medicine 11/05/[address] [place] [address] Registered Dietitian Nutrition 06/24/25 documented as of this encounter
--- OUTSIDE RECORDS SUMMARY | 2025-07-27 10:13 | XMS_ITS | Encounter Summary ---
Author Organization [facility] Address [address] [place] [address] Care Team Providers Care Lime Mixer Tender Name Role Phone Jamal Lozano APRN.SURVEYOR OIL WELL DIRECTIONAL Unavailable Simi Kearney RD Unavailable Source Comments In the event this information is protected by the Federal Confidentiality of Alcohol and Drug AbusePatient Records regulations: The Federal rules restrict any use of the information to criminally investigate or prosecute any alcohol or drug abuse patient.[facility] Encounter Details Date Type Department Care Team (Late st Contact Info) Description 03/05/2024 GI Preprocedure Call Ambulatory Surgery [address] [place], [place] [phone] Freddy Hernandez Jr., DO [address] [facility] [address] [address] Social History Tobacco Use Types Packs/Day Years [...] lower risk 3 11/29/2023 Data from: https://www.neighborhoodatlas.medicine.[facility]/. Last address used for calculation [address] [...] 11:00 AM EDT Office Visit General Surgery [address] [place], [place] [phone] Randa Boudreaux, LIANNA.SURVEYOR OIL WELL DIRECTIONAL [address] [address] 1 month post op LRYGB 07/06/25 TA 09/30/2025 3:00 PM EST Education General Surgery [address] [place] [address] Simi Kearney, RD [address] [place], [place] [id number] 3 month post op LRYGB 07/06/25 TA 10/05/2025 2:30 PM EST [facility] General Surgery [address] [place] [address] Randa Boudreaux APRN.SURVEYOR OIL WELL DIRECTIONAL [address] [address] 3 month post op LRYGB 07/06/25 TA documented as of this encounter Visit Diagnoses Not on filedocumented in this encounter Care Teams Lime Mixer Tender Relationship Specialty Start Date End Date Jamal Lozano APRN.SURVEYOR OIL WELL DIRECTIONAL Referring Internal Medicine 11/05/[address] [place] [phone] Registered Dietitian Nutrition 06/24/25 documented as of this encounter
--- OUTSIDE RECORDS SUMMARY | 2025-07-27 10:13 | XMS_ITS | Encounter Summary ---
Author Organization [facility] Address [address] [place] [address] Care Team Providers Care Yardage Control Operator Forming Name Role Phone Jamal Lozano APRN.GENETIC SUPERVISOR Unavailable Simi Kearney RD Unavailable Source Comments In the event this information is protected by the Federal Confidentiality of Alcohol and Drug AbusePatient Records regulations: The Federal rules restrict any use of the information to criminally investigate or prosecute any alcohol or drug abuse patient.[facility] Encounter Details Date Type Department Care Team (Late st Contact Info) Description 12/29/2024 Patient Msg General Surgery [address] [place], [place] [phone] Provider, Ccf Join the weight loss study: Surgery vs Medication. Social History Tobacco Use Types Packs/Day Years Used Date Smoking Tobacco: Former Cigarettes Smokeless Tobacco: Former Comments:Quit 6 years ago Alcohol Use Standard Drinks/Week Comments Not Currently 0 (1 standard drink = 0.6 oz pur e alcohol) PHQ-2 Answer Date Recorded PHQ-2 score 0 01/07/2024 Area Deprivation Index Answer Date Eliseo rded National Score (1-100), lower number is lower ri 53 11/29/2023 State Score (1-10), lower number is lower risk 3 11/29/2023 Data from: https://www.neighborhoodatlas.medicine.[facility].edu/. Last address used for calculation [address] [...] 11:00 AM EDT Office Visit General Surgery [address] [place] [address] Randa Boudreaux, CARTOGRAPHIC DRAFTER.GENETIC SUPERVISOR [address] [address] 1 month post op LRYGB 07/06/25 TA 09/30/2025 3:00 PM EST Education General Surgery [address] [place] [address] [place] [address] 3 month post op LRYGB 07/06/25 TA 10/05/2025 2:30 PM EST [facility] General Surgery [facility] [place] [address] Randa Boudreaux, CARTOGRAPHIC DRAFTER.GENETIC SUPERVISOR [address] [address] 3 month post op LRYGB 07/06/25 TA documented as of this encounter Visit Diagnoses Not on filedocumented in this encounter Care Teams Yardage Control Operator Forming Relationship Specialty Start Date End Date Jamal Lozano APRN.GENETIC SUPERVISOR Referring Internal Medicine 11/05/[address] [place] [address] Registered Dietitian Nutrition 06/24/25 documented as of this encounter
--- OUTSIDE RECORDS SUMMARY | 2025-07-27 10:13 | XMS_ITS | Encounter Summary ---
Author Organization [facility] Address [address] [place] [address] Care Team Providers Care Fisher Troll Line Name Role Phone Jamal Lozano APRN.CLIENT ACCOUNT REPRESENTATIVE Unavailable Simi Kearney RD Unavailable Source Comments In the event this information is protected by the Federal Confidentiality of Alcohol and Drug AbusePatient Records regulations: The Federal rules restrict any use of the information to criminally investigate or prosecute any alcohol or drug abuse patient.[facility] Encounter Details Date Type Department Care Team (Late st Contact Info) Description 12/26/2023 Patient Msg General Surgery [address] [place], [place] [phone] Provider, Ccf Referral Information Social History Tobacco Use Types Packs/Day Years Used Date Smoking Tobacco: Never Assessed Area Deprivation Index Answer Date Eliseo rded National Score (1-100), lower number is lower ri sk 53 11/29/2023 State Score (1-10), lower number is lower risk 3 11/29/2023 Data from: https://www.neighborhoodatlas.medicine.[facility].edu/. Last address used for calculation [...] 11:00 AM EDT Office Visit General Surgery [id number] [place], [place] [address] [place] [phone] Randa Boudreaux, HAND DRAWER IN HELPER.CLIENT ACCOUNT REPRESENTATIVE [address] [address] 1 month post op LRYGB 07/06/25 TA 09/30/2025 3:00 PM EST Education General Surgery [facility] [address] [place] [phone] Simi Kearney RD [address] [place], [place] [phone] 3 month post op LRYGB 07/06/25 TA 10/05/2025 2:30 PM EST [facility] General Surgery [address] [place], [place] [address] [place] [address] Randa Boudreaux, HAND DRAWER IN HELPER.CLIENT ACCOUNT REPRESENTATIVE [address] [address] 3 month post op LRYGB 07/06/25 TA documented as of this encounter Visit Diagnoses Not on filedocumented in this encounter Care Teams Fisher Troll Line Relationship Specialty Start Date End Date Jamal Lozano APRN.CLIENT ACCOUNT REPRESENTATIVE Referring Internal Medicine 11/05/[address] [place], [place] [phone] Registered Dietitian Nutrition 06/24/25 documented as of this encounter
--- OUTSIDE RECORDS SUMMARY | 2025-07-27 10:13 | XMS_ITS | Encounter Summary ---
Author Organization [facility] Address [address] [facility] [place] [address] Care Team Providers Care Spinner Frame Name Role Phone Paty Crow Leslie DO Unavailable [phone] Chely Branham MD, IBCLC Primary Care Provid er Raleigh Cleary DO Primary Care Provider + [phone] Raleigh Cleary DO Unavailable [phone] Bernardo Londono DO Primary Care Provider [phone] Encounter Details Date Type Department Care Team (Late st Contact Info) Description 07/25/2023 Orders Only [facility] [address] [place] [address] System, Provider Not In Social History Tobacco Use Types Packs/Day Years Used Date Smoking Tobacco: Former Cigarettes Q uit: 10/15/2019 Smokeless Tobacco: Never Alcohol Use Standard Drinks/Week [...] EST Office Visit [facility] Malissa ARORA [address] [place] [address] Belinda Douglas PA [address] [place] [address] documented as of this encounter Procedures Procedure Name Priority Date/Time Associated Diagnosis Comments CBC WITH AUTO DIFFERENTIAL Routine 07/12/2023 8:04 AM EDT TSH Routine 07/12/2023 8:04 AM EDT COMPREHENSIVE METABOLIC PANEL Routine 07/12/2023 8:04 AM EDT documented in this encounter Results * CBC auto differential (07/12/2023 8:04 AM EDT) Blood Venous blood specimen / Unknown us Provider Not In System LAB BLOOD ORDERABLES Leidy l Result * Comprehensive metabolic panel (07/12/2023 8:04 AM EDT) Blood Venous blood specimen / Unknown us Provider Not In System LAB BLOOD ORDERABLES Leidy l Result * TSH (07/12/2023 8:04 AM EDT) Blood Venous blood specimen / Unknown us Provider Not In System LAB BLOOD ORDERABLES Leidy l Result documented in this encounter Visit Diagnoses Not on filedocumented in this encounter Care Teams Spinner Frame Relationship Specialty Start Date End Date Paty Crow DO [address] [place] [address] PCP - [facility] 01/13/23 4 Chely Branham MD, IBCLC [address] [place] [address] PCP - General Family Medicine 07/11/23 08/15/23 Raleigh Cleary DO [address] [place] [address] PCP - General Internal Medicine 08/16/23 12/21/24 Raleigh Cleary DO [address] [place] [address] PCP - [facility] 04/14/24 Bernardo Londono DO [address] [facility] [address] [place] [address] PCP - General Family Medicine 12/22/24 documented as of this encounter
--- OUTSIDE RECORDS SUMMARY | 2025-07-27 10:13 | XMS_ITS | Encounter Summary ---
Author Organization [facility] Address [address] [place] [address] Care Team Providers Care Frame Expander Name Role Phone Jamal Lozano APRN.COOK ROOM SUPERVISOR Unavailable Simi Kearney RD Unavailable Source Comments In the event this information is protected by the Federal Confidentiality of Alcohol and Drug AbusePatient Records regulations: The Federal rules restrict any use of the information to criminally investigate or prosecute any alcohol or drug abuse patient.[facility] Encounter Details Date Type Department Care Team (Late st Contact Info) Description 07/15/2025 Patient Msg General Surgery [address] [place] [phone] Provider, Ccf Nutrition Summary Social History Tobacco [...] is lower risk 3 11/29/2023 Data from: https://www.neighborhoodatlas.medicine.[facility]/. Last address used for calculation [address] 11/29/2023 Comments No Sex and Gender Information Value Date Recorded Sex Assigned at Female 12/13/2023 8:30 AM EST Legal Sex Female 6:57 AM EDT Gender Identity Female 12/13/2023 8:30 AM EST Sexual Orientation Straight 12/13/2023 8: 30 AM EST documented as of this encounter Functional Status * Are you [...] Cailin Perez RN documented in this encounter Plan of Treatment Upcoming Encounters Date Type Department Care Team (Latest Contact Info) Description 08/10/2025 11:00 AM EDT Office Visit General Surgery [address] [place] [address] Randa Boudreaux, YARD HOSTLER.COOK ROOM SUPERVISOR [address] [address] [place] [phone] 1 month post op LRYGB 07/06/25 TA 09/30/2025 3:00 PM EST Education General Surgery [address] [place] [address] [place] [address] 3 month post op LRYGB 07/06/25 TA 10/05/2025 2:30 PM EST [facility] General Surgery [address] [place] [address] Randa Boudreaux, YARD HOSTLER.COOK ROOM SUPERVISOR [address] [address] 3 month post op LRYGB 07/06/25 TA documented as of this encounter Goals Goal Patient Goal Type Associated Problems Recent Progress Patient-Stated? Author Bariatric Surgery Supervisor Painting Shipyard Care Plan Bariatric Surgery Supervisor Painting Shipyard No Drew Hernandez Autogenerated Goal Care Plan Autogenerated Problem No Drew Hernandez documented as of this encounter Visit Diagnoses Not on filedocumented in this encounter Additional Health Concerns Active Problems Noted Date Diagnosed Date Bariatric Surgery Supervisor Painting Shipyard 06/17/2025 Autogenerated Problem 06/17/2025 documented as of this encounter Care Teams Frame Expander Relationship Specialty Start Date End Date Jamal Lozano APRN.MORENO Referring Internal Medicine 11/05/[address] [place] [address] Registered Dietitian Nutrition 06/24/25 documented as of this encounter
--- OUTSIDE RECORDS SUMMARY | 2025-07-27 10:13 | XMS_ITS | Encounter Summary ---
Author Organization [facility] Address [address] [place] [address] Care Team Providers Care Rrts Name Role Phone Jamal Lozano APRN.INSPECTOR SHELLS Unavailable [phone] Unavailable Source Comments In the event this information is protected by the Federal Confidentiality of Alcohol and Drug AbusePatient Records regulations: The Federal rules restrict any use of the information to criminally investigate or prosecute any alcohol or drug abuse patient.[facility] Encounter Details Date Type Department Care Team (Late st Contact Info) Description 06/18/2025 Patient Msg General Surgery [address] [place] [address] Provider, Ccf Upcoming appointment Social History Tobacco Use Types Packs/Day [...] is lower risk 3 11/29/2023 Data from: https://www.neighborhoodatlas.medicine.[facility].edu/. Last address used for calculation [address] [...] 11:00 AM EDT Office Visit General Surgery [address] [place] [address] Randa Boudreaux, CROSS COUNTRY COACH.INSPECTOR SHELLS [address] [address] 1 month post op LRYGB 07/06/25 TA 09/30/2025 3:00 PM EST Education General Surgery [address] [address] [place], [place] [phone] 3 month post op LRYGB 07/06/25 TA 10/05/2025 2:30 PM EST [facility] General Surgery [id number] [place] [address] [place] [address] Randa Boudreaux, CROSS COUNTRY COACH.INSPECTOR SHELLS [address] [address] 3 month post op LRYGB 07/06/25 TA documented as of this encounter Goals Goal Patient Goal Type Associated Problems Recent Progress Patient-Stated? Author Bariatric Surgery Air Traffic Coordinator Care Plan Bariatric Surgery Air Traffic Coordinator No Drew Hernandez Autogenerated Goal Care Plan Autogenerated Problem No Drew Hernandez documented as of this encounter Visit Diagnoses Not on filedocumented in this encounter Additional Health Concerns Active Problems Noted Date Diagnosed Date Bariatric Surgery Air Traffic Coordinator 06/17/2025 Autogenerated Problem 06/17/2025 documented as of this encounter Care Teams Rrts Relationship Specialty Start Date End Date Jamal Lozano APRN.CNP Referring Internal Medicine 11/05/[address] [place] [address] Registered Dietitian Nutrition 06/24/25 documented as of this encounter
--- OUTSIDE RECORDS SUMMARY | 2025-07-27 10:13 | XMS_ITS | Clinical Summary ---
Author Organization [facility] Address [facility] [place] [address] Care Team Providers Care Monkey Keeper Name Role Phone Jamal Lozano APRN.BEARING MACHINE OPERATOR Unavailable Simi Kearney RD Unavailable Allergies No known active allergies Medications * This document contains information received from the source organization and may not represent a complete record from that organization. ondansetron orally disintegrating (ZOFRAN ODT) 4 mg disintegrating tabletIndications :Obesity, Class II, BMI 35-39.9,Pre-op testing,Morbid obesity due to excess calories (HCC) Take 1 tablet by mouth every 8 hours as needed for nausea/vomitin g for up to 60 doses. 30 tablet 1 025 Active Additional Information Patient not taking.Reported on 07/06/2025 omeprazole (PRILOSEC) 40 mg capsuleIndication s:Obesity, Class II, BMI 35-39.9,Pre-op testing,Morbid obesity due to excess calories (HCC) Take 1 capsule by mouth once daily. 90 capsule 025 Active acetaminophen (TYLENOL) 325 mg cap Take 2 capsules by mouth as needed. Active spironolactone (ALDACTONE) 50 mg tablet Take 50 mg by mouth every morning. 024 2024 Discontinued senna-docusate (SENNA-S) 8.6-50 mg per tabletIndications :Obesity, Class II, BMI 35-39.9,Pre-op testing,Morbid obesity due to excess calories (HCC) Take 1 tablet by mouth once daily. 30 tablet 025 2024 Additional Information Patient not taking.Reported on 07/06/2025 oxyCODONE IR (ROXICODONE) 5 mg immediate release tabletIndications :Acute post-operative pain Take 1 tablet by mouth every 8 hours as needed for pain for up to 3 days. 5 tablet 025 2024 Discontinued(C ourse of therapy completed) Active Problems Problem Noted Date Diagnosed Date High blood pressure 01/11/2024 01/11/2024 Assessment & Plan (06/26/2025 2:05 PM EDT): Assessment: stable, asymptomatic Last 5 Encounter BP Readings: Date: BP: 06/26/2025 109/73 06/23/2025 146/79 01/21/2025 145/78 11/29/2023 144/68 Class 2 obesity with body ma ss index (BMI) of 37.0 to 37.9 in adult 01/07/2024 Assessment & Plan (06/26/2025 2:05 PM EDT): Assessment: Body mass index is 37.09 kg/m . Anxiety disorder, unspecified 07/09/2023 Assessment & Plan (06/26/2025 2:05 PM EDT): Assessment: denies panic in hospital setting Insulin resistance 08/02/2018 01/11/2024 PCOS (polycystic ovarian syndrome) 08/02/2018 01/11/2024 Assessment & Plan (06/26/2025 2:05 PM EDT): Assessment: stable, not currently on medication Encounters Date Type Department Care Team Description 07/15/2025 11:00 AM EDT Education General Surgery [address] [place] [address] Reassessment; Patient Education 07/15/2025 Patient Msg General Surgery [address] [place] [address] Provider, Ccf Nutrition Summary 07/06/2025 9:00 AM EDT Office Visit General Surgery [address] [place] [phone] Randa Boudreaux APRN.CNP Encounter for surgical aftercare following surgery of digestive system (Primary Dx); S/P laparoscopic sleeve gastrectomy; Class 2 obesity without serious comorbidity with body mass index (BMI) of 35.0 to 35.9 in adult, unspecified obesity type 06/29/2025 7:45 AM EDT Anesthesia Event [facility] Operating Room [address] [place] [address] Tito Andujar I, MD 06/29/2025 7:30 AM EDT - 06/29/2025 9:30 AM EDT Surgery [facility] Operating Room [address] [place] [address] Rosa Malcolm MD LAPAROSCOPIC LONGITUDINAL GASTRECTOMY, GASTRIC RESTRICTIVE PROCEDURE 06/29/2025 6:10 AM EDT - 06/30/2025 12:33 PM EDT Hospital Encounter [facility] PK[address]A [id number] [place], [place] [id number] Rosa Malcolm MD Morbid obesity due to excess calories (HCC) [E66.01] Discharge Disposition: Home 06/29/2025 Travel 06/26/2025 1:40 PM EDT PAT Pre Anesthesia [address] [place] [address] 1, [facility] Pre-op examination (Primary Dx); Hypertension, unspecified type; PCOS (polycystic ovarian syndrome); Anxiety disorder, unspecified type; Obesity, Class II, BMI 35-39.9 06/24/2025 9:00 AM EDT Education General Surgery [address] [place] [address] Reassessment; Patient Education 06/24/2025 Patient Msg General Surgery [address] [place] [address] Provider, Ccf Nutrition Summary 06/23/2025 2:00 PM EDT Office Visit General Surgery [address] [address] Rosa Malcolm MD Obesity, Class II, BMI 35-39.9 (Primary Dx); Pre-op testing; Morbid obesity due to excess calories (HCC) 06/23/2025 Travel 06/23/2025 Patient [facility] General Surgery [address] [place] [phone] Rosa Malcolm MD 06/18/2025 Patient [facility] General Surgery [address] [place] [phone] Provider, Ccf Post Op Appointment Scheduling 06/18/2025 Patient [facility] General Surgery [address] [place] [phone] Rosa Malcolm MD 06/23 Visit 06/18/2025 Patient [facility] General Surgery [address] [place] [phone] Provider, Ccf Upcoming appointment 06/16/2025 Patient Update General Surgery [address] [place] [phone] Rosa Malcolm MD 07/06/2025 (LRYGB ) 06/12/2025 Telephone General Surgery [facility] [address] [place] [phone] Rosa Malcolm MD Scheduling Surgery; Health Clinician - Other 06/11/2025 Telephone General Surgery [address] [place] [phone] Rosa Malcolm MD Health Clinician - Other; Returning Patient's Call from Last 3 Months Social History Tobacco Use Types Packs/Day Years Used Date Smoking Tobacco: Former Cigarettes Q uit: 06/26/2015 Smokeless Tobacco: Former Tobacco Cessation:Counseling Given: Not Answered Comments:Quit 6 years ago Alcohol Use Standard Drinks/Week Comments Not Currently 0 (1 standard drink = 0.6 oz pur e alcohol) PHQ-2 Answer Date Recorded PHQ-2 score 0 01/26/2025 Area Deprivation Index Answer Date Eliseo rded National Score (1-100), lower number is lower ri sk 53 11/29/2023 State Score (1-10), lower number is lower risk 3 11/29/2023 Data from: https://www.neighborhoodatlas.medicine.[facility].edu/. Last address used for calculation [address] 11/29/2023 Comments No Sex and Gender Information Value Date Recorded Sex Assigned at Female 12/13/2023 8:30 AM EST Legal Sex Female 6:57 AM EDT Gender Identity Female 12/13/2023 8:30 AM EST Sexual Orientation Straight 12/13/2023 8: 30 AM EST Last Filed Vital Signs Vital Sign Reading Time Taken Comments Blood Pressure 109/78 07/06/2025 9:10 AM EDT Pulse 72 07/06/2025 9:10 AM EDT Temperature 36.5 C (97.7 F) 07/06/2025 9:10 AM EDT Respiratory Rate 17 06/30/2025 11:3 4 AM EDT Oxygen Saturation 95% 06/30/2025 11: 34 AM EDT Inhaled Oxygen Concentration - - Weight 91.6 kg (201 lb 13.3 oz) 025 11:04 AM EDT Height 162.6 cm (5' 4.02 ) 07/15/2025 1 1:04 AM EDT Body Mass Index 34.63 07/15/2025 11:04 AM EDT Plan of Treatment Upcoming Encounters Date Type Department Care Team (Latest Contact Info) Description 08/10/2025 11:00 AM EDT Office Visit General Surgery [address] [place] [address] Randa Boudreaux, LIANNA.BEARING MACHINE OPERATOR [address] [address] 1 month post op LRYGB 07/06/25 TA 09/30/2025 3:00 PM EST Education General Surgery [address] [place] [address] [place] [address] 3 month post op LRYGB 07/06/25 TA 10/05/2025 2:30 PM EST [facility] General Surgery [address] [place] [address] Randa Boudreaux, LIANNA.BEARING MACHINE OPERATOR [address] [address] 3 month post op LRYGB 07/06/25 TA Health Maintenance Due Date Last Done Comments Annual PCP Team Chronic Dise ase Visit 2011 Depression Screening 2011 HIV Screening 2011 Hepatitis C Screening 2011 Hepatitis B Vaccine (1 of 3 - 19+ 3-dose series) 2012 Cervical Cancer Screening 07/13/2023 07/13/2020, Covid-19 Vaccine (1 - 2024-2 6 season) 2025 Influenza Vaccine (#1) 2025 DTaP,Tdap,Td Vaccine (3 - Td or Tdap) 05/06/2032 05/06/2022, 03/20/2016 HPV Vaccine Completed 07/22/2019, 01/14, 12/04/2018 Goals Goal Patient Goal Type Associated Problems Recent Progress Patient-Stated? Author Bariatric Surgery Lpta Care Plan Bariatric Surgery Lpta No Drew Hernandez Autogenerated Goal Care Plan Autogenerated Problem No Drew Hernandez Procedures Procedure Name Priority Date/Time Associated Diagnosis Comments BASIC METABOLIC PANEL Routine 06/30/2025 5:04 AM EDT COMPLETE BLOOD COUNT Routine 06/30/2025 5:04 AM EDT SURGICAL PATHOLOGY Routine 06/29/2025 9: 02 AM EDT Morbid obesity due to excess calories (HCC) CONFIRM BLOOD TYPE Routine 06/29/2025 8: 06 AM EDT Morbid obesity due to excess calories (HCC) PERIPHERAL IV PLACEMENT Routine 06/29/2025 7:55 AM EDT INTUBATION Routine 06/29/2025 7:53 AM EDT TYPE + SCREEN Routine 06/29/2025 7:51 AM EDT Morbid obesity due to excess calories (HCC) LAPS GSTRC RSTRICTIV PX LONGITUDINAL GASTRECTOMY 06/29/2025 7:45 AM EDT Morbid obesity due to excess calories (HCC) COMPREHENSIVE METABOLIC PANEL Routine 06/26/2025 2:16 PM EDT Obesity, Class II, BMI 35-39.9 Pre-op testing CBC + DIFF Routine 06/26/2025 2:16 PM EDT Obesity, Class II, BMI 35-39.9 Pre-op testing PT ED BARIATRIC AND METABOLIC 06/16/2025 from Last 3 Months Results * (ABNORMAL) COMPLETE BLOOD COUNT (06/30/2025 5:04 AM EDT) WBC 11.61(H) 3.70 - 11.00 k/uL 06/30/2025 5:44 AM EDT [facility] RBC 4.32 3.90 - 5.20 m/uL 06/30/2025 5:44 AM EDT [facility] Hemoglobin 12.3 11.5 - 15.5 g/dL 06/30/2025 5:44 AM EDT [facility] Hematocrit 36.7 36.0 - 46.0 % 06/30/2025 5:44 AM EDT [facility] MCV 85.0 80.0 - 100.0 fL 06/30/2025 5:44 AM EDT [facility] MCH 28.5 26.0 - 34.0 pg 06/30/2025 5:44 AM EDT [facility] MCHC 33.5 30.5 - 36.0 g/dL 06/30/2025 5:44 AM EDT [facility] RDW-CV 12.6 11.5 - 15.0 % 06/30/2025 5:44 AM EDT [facility] Platelet Count 237 150 - 400 k/uL 06/30/2025 5:44 AM EDT [facility] MPV 10.2 9.0 - 12.7 fL 06/30/2025 5:44 AM EDT [facility] Absolute nRBC <0.01 <0.01 k/uL 06/30/2025 5:44 AM EDT [facility] Blood BLOOD SPECIMEN / Unknown Venipuncture / Unknown 06/30/2025 5:04 AM EDT 06/30/2025 5:27 AM EDT Rosa Malcolm MD LABORATORY Final Result [facility] [address] [place] [address], * (ABNORMAL) BASIC METABOLIC PANEL (06/30/2025 5:04 AM EDT) [facility] Signature Glucose 90 74 - 99 mg/dL 06/30/2025 6:35 AM EDT [facility] Comment: The [place] Diabetes Association (ADA) provides guidance for cutoff values for fasting glucose and random glucose. The ADA defines fasting as no caloric intake for at least 8 hours. Fasting plasma glucose results between 100 to 125 mg/dL indicate increased risk for diabetes (prediabetes). Fasting plasma glucose results greater than or equal to 126 mg/dL meet the criteria for diagnosis of diabetes. In the absence of unequivocal hyperglycemia, results should be confirmed by repeat testing. In a patient with classic symptoms of hyperglycemia or hyperglycemic crisis, random plasma glucose results greater than or equal to 200 mg/dL meet the criteria for diagnosis of diabetes. Reference: Standards of Medical Care in Diabetes 2016, [place] Diabetes Association. Diabetes Care. 2016.39(Suppl 1). BUN 7 7 - 21 mg/dL 06/30[facility]2025 6[facility] Creatinine 0.85 0.58 - 0.96 mg/dL 06/30/2025 6:35 AM EDT [facility] Sodium 139 136 - 144 mmol/L 06/30/2025 6:35 AM EDT [facility] Potassium 3.7 3.7 - 5.1 mmol/L 06/30/2025 6:35 [facility] Chloride 106 98 - 107 mmol/L 06/30/2025 6:35 AM EDT [facility] CO2 23 22 - 30 mmol/L 06/30/2025 6:35 [facility] Anion Gap 10 8 - 15 mmol/L 06/30/2025 6:35 [facility] Calcium, Total 8.4(L) 8.5 - 10.2 mg/dL 06/30/2025 6:35 AM EDT [facility] Estimated Glomerular Filtration Rate 93 >=60 mL/min/1. 73m 06/30/2025 6:35 AM [facility] Comment:Estimated Glomerular Filtration Rate (eGFR) is calculated using the 2020 CKD-EPI creatinine equation. This equation utilizes serum creatinine, sex, and age as parameters. The creatinine assay has traceable calibration to isotope dilution- mass spectrometry. Refer to KDIGO guidelines for clinical interpretation. In patients with unstable renal function, e.g. those with acute kidney injury, the eGFR may not accurately reflect actual GFR. Blood BLOOD SPECIMEN / Unknown Venipuncture / Unknown 06/30/2025 5:04 AM EDT 06/30/2025 5:42 AM EDT Rosa Malcolm MD LABORATORY Final Result [facility] [address] [place] [address], * SURGICAL PATHOLOGY (06/29/2025 9:02 AM EDT) Case Report Surgical Pathology Report Case: [id number] Authorizing Provider: Rosa Malcolm MD Collected: 06/29/2025 09:02 AM Ordering Location: [facility] Received: 06/29/2025 09:48 AM Operating Room Pathologist: Refugio Ritter MD Specimen: Stomach, Resection, Sleeve Gastrectomy 07/01/2025 5:28 PM EDT [facility] FINAL DIAGNOSIS Portion of stomach, excision: - Segment of gastric body/fundus with no diagnostic abnormality. JEL 07/01/2025 07/01/2025 5:28 PM EDT [facility] at 1728 EDT Gross Description A. Stomach, Resection Received fresh designated sleeve gastrectomy is a portion of stomach that measures 17 x 4 x 2.2 cm. The serosal surface is pink-pedersen and slightly ragged. The stomach is opened along the staple line to reveal pink-pedersen gastric mucosa, showing normal rugal folds, with a wall thickness of 0.8 cm. Circulating Process Inspector sections are submitted in one cassette. WE June 29, 2025 11:31 AM Gross examination performed at [facility], [address] [place] [address] 07/01/2025 5:28 PM EDT [facility] Clinical History Pre-op diagnosis: Morbid obesity due to excess calories (HCC) [E66.01] 07/01/2025 5:28 PM EDT [facility] Performing Lab Diagnostic interpretation performed at: [facility], [address] [place] [address] CLIA# [id number] Tours Captain: Refugio Ritter MD 07/01/2025 5:28 PM EDT [facility] Disclaimer Laboratory Developed Test (LDT) Disclaimer: Performance characteristics of immunohistochemica l, immunofluorescent, and chromogenic in-situ hybridization tests have been determined by the performing laboratory within the [facility] Department of Pathology and Laboratory Medicine ([facility], [facility], [facility], [facility], [facility], [facility], or [facility]) in a manner consistent with CLIA requirements. One or more of these tests may not have been cleared or approved by the FDA. The [facility] Department of Pathology and Laboratory Medicine is regulated under CLIA as qualified to perform high-complexity testing. These tests are used for clinical purposes. These should not be regarded as investigational or for research. Positive and negative controls stain appropriately. 07/01/2025 5:28 PM EDT [facility] Tissue SPECIMEN FROM STOMACH / Unknown 06/29/2025 9:02 AM EDT 06/29/2025 9:48 AM EDT Comment:Pre-op diagnosis: Morbid obesity due to excess calories (HCC) [E66.01] Rosa Malcolm MD SURGICAL PATHOLOGY Final Result [facility] [address] [facility] [address] [place] [address], [facility] [address] [place] [address], * CONFIRM BLOOD TYPE (06/29/2025 8:06 AM EDT) ABO O 06/29/2025 8:58 AM EDT [facility] Rh(D) Positive 06/29/2025 8:58 AM EDT [facility] Blood BLOOD SPECIMEN / Unknown 06/29/2025 8:06 AM EDT 06/29/2025 8:12 AM EDT Comment:Pre-op diagnosis: Morbid obesity due to excess calories (HCC) [E66.01] us Rosa Malcolm MD BLOOD BANK Final Result [facility] [address] [place] [address], * PERIPHERAL IV PLACEMENT (06/29/2025 7:55 AM EDT) Narrative Jacquelyn Anderson AA - 06/29/2025 7:55 AM EDT Jacquelyn Anderson AA 06/29/2025 8:24 AM PIV General Information Procedure Start Time/Medication Administration: 06/29/2025 7:55 AM Procedure End Time: 06/29/2025 7:56 AM Patient Location: OR Staffing CAA: Jacquelyn Anderson AA Performed by: CLARKE Preparation Sterility Preparation: hand hygiene performed prior to procedure, surgical cap used, mask used, skin prep agent completely dried prior to procedure Site Prep: Chloraprep Procedure Details Indication: need for IV access Needle Size/Type: 18 gauge angiocath Orientation: Left Location: Hand Imaging Guidance Used: No us Tito Linares MD ANESTHESIA ORDERABLES Final Resu lt * Airway (06/29/2025 7:53 AM EDT) Narrative Jacquelyn Anderson AA - 06/29/2025 7:53 AM EDT Jacquelyn Anderson AA 06/29/2025 8:16 AM Airway General Information Procedure Start Time/Medication Administration: 06/29/2025 7:53 AM Procedure End Time: 06/29/2025 7:56 AM Patient location during procedure: OR Timeout Performed Pre-procedure: timeout performed Consent Obtained: Yes Patient identity confirmed: arm band Staffing Anesthesiologist: Tito Andujar I, MD CAA: Jacquelyn Anderson AA CAA Student: Meghana Mart AA Student Performed by: CLARKE student Indications and Patient Condition Indications for airway management: anesthesia Preoxygenated: yes anesthesia circuit Method: sleep Difficult Mask: No Final Airway Details Final airway type: endotracheal airwayFinal Endotracheal Airway: ETT Cuffed: yes Successful intubation technique: video laryngoscopy Devices used: Shoette Endotracheal tube insertion site: oral Blade: Alon Blade size: #3 ETT size (mm): 7.0 Measured from: lips Measurement (cm): 21 Placement verified by: chest auscultation and capnometry Cormack-Lehane Classification: grade I - full view of glottis Number of attempts at approach: 1 Airway not difficult us Tito Linares MD ANESTHESIA ORDERABLES Final Resu lt * TYPE + SCREEN (06/29/2025 7:51 AM EDT) Pathologist [facility] ABO O 06/29/2025 8:58 AM EDT [facility] Rh(D) Positive 06/29/2025 8:58 AM EDT [facility] Antibody Screen Negative 06/29/2025 8:58 AM EDT [facility] Type and Screen Expiration 07/02/2025 23:59 06/29/2025 8:58 AM EDT [facility] Blood BLOOD SPECIMEN / Unknown 06/29/2025 7:51 AM EDT 06/29/2025 8:00 AM EDT Comment:Pre-op diagnosis: Morbid obesity due to excess calories (HCC) [E66.01] us Rosa Malcolm MD BLOOD BANK Final Result [facility] [address] [place] [address], * (ABNORMAL) COMPREHENSIVE METABOLIC PANEL (06/26/2025 2:16 PM EDT) Pathologist [facility] Protein, Total 7.6 6.3 - 8.0 g/dL 06/27/2025 8:51 AM EDT [facility] Albumin 4.7 3.9 - 4.9 g/dL 06/27/2025 8:51 AM EDT [facility] Calcium, Total 9.7 8.5 - 10.2 mg/dL 06/27/2025 8:51 AM EDT [facility] Bilirubin, Total 1.5(H) 0.2 - 1.3 mg/dL 06/27/2025 8:51 AM EDT [facility] Alkaline Phosphatase 78 34 - 123 U/L 06/27/2025 8:51 AM EDT [facility] AST 72(H) 13 - 35 U/L 06/27/2025 8:51 AM [facility] ALT 143(H) 7 - 38 U/L 06/27/2025 8:51 AM [facility] Glucose 73(L) 74 - 99 mg/dL 06/27/2025 8:51 AM [facility] Comment: The [place] Diabetes Association (ADA) provides guidance for cutoff values for fasting glucose and random glucose. The ADA defines fasting as no caloric intake for at least 8 hours. Fasting plasma glucose results between 100 to 125 mg/dL indicate increased risk for diabetes (prediabetes). Fasting plasma glucose results greater than or equal to 126 mg/dL meet the criteria for diagnosis of diabetes. In the absence of unequivocal hyperglycemia, results should be confirmed by repeat testing. In a patient with classic symptoms of hyperglycemia or hyperglycemic crisis, random plasma glucose results greater than or equal to 200 mg/dL meet the criteria for diagnosis of diabetes. Reference: Standards of Medical Care in Diabetes 2016, [place] [employer]. Diabetes Care. 2016.39(Suppl 1). BUN 14 7 - 21 mg/dL 06/27/2025 8:51 AM [facility] Creatinine 0.82 0.58 - 0.96 mg/dL 06/27/2025 8:51 AM [facility] Sodium 137 136 - 144 mmol/L 06/27/2025 8:51 AM [facility] Potassium 4.4 3.7 - 5.1 mmol/L 06/27/2025 8:51 AM [facility] Chloride 100 98 - 107 mmol/L 06/27/2025 8:51 AM [facility] CO2 23 22 - 30 mmol/L 06/27/2025 8:51 AM [facility] Anion Gap 14 8 - 15 mmol/L 06/27/2025 8:51 AM [facility] Estimated Glomerular Filtration Rate 98 >=60 mL/min/1.7 3m 06/27/2025 8:51 AM [facility] Comment:Estimated Glomerular Filtration Rate (eGFR) is calculated using the 2020 CKD-EPI creatinine equation. This equation utilizes serum creatinine, sex, and age as parameters. The creatinine assay has traceable calibration to isotope dilution- mass spectrometry. Refer to KDIGO guidelines for clinical interpretation. In patients with unstable renal function, e.g. those with acute kidney injury, the eGFR may not accurately reflect actual GFR. Blood BLOOD SPECIMEN / Unknown Venipuncture / Unknown 06/26/2025 2:16 PM EDT 06/26/2025 2:16 PM EDT us Randa Boudreaux WATCH HAIRSPRING ASSEMBLER.BEARING MACHINE OPERATOR LABORATORY Final Res ult [facility] [address] [facility] [place] [address], [place] * (ABNORMAL) COMPLETE BLOOD COUNT AND DIFFERENTIAL (06/26/2025 2:16 PM EDT) WBC 8.67 3.70 - 11.00 k/uL 06/26/2025 10:48 PM EDT [facility] RBC 5.22(H) 3.90 - 5.20 m/uL 06/26/2025 10:48 PM EDT [facility] Hemoglobin 14.9 11.5 - 15.5 g/dL 06/26/2025 10:48 PM EDT [facility] Hematocrit 45.7 36.0 - 46.0 % 06/26/2025 10:48 PM EDT [facility] MCV 87.5 80.0 - 100.0 fL 06/26/2025 10:48 PM EDT [facility] MCH 28.5 26.0 - 34.0 pg 06/26/2025 10:48 PM EDT [facility] MCHC 32.6 30.5 - 36.0 g/dL 06/26/2025 10:48 PM EDT [facility] RDW-CV 12.8 11.5 - 15.0 % 06/26/2025 10:48 PM EDT [facility] Platelet Count 296 150 - 400 k/uL 06/26/2025 10:48 PM EDT [facility] MPV 10.7 9.0 - 12.7 fL 06/26/2025 10:48 PM EDT [facility] Neutrophils % 60.1 % 06/26/2025 10:48 PM EDT [facility] Abs Neut 5.21 1.45 - 7.50 k/uL 06/26/2025 10:48 PM EDT [facility] Lymphocytes % 29.8 % 06/26/2025 10:48 PM EDT [facility] Abs Lymph 2.58 1.00 - 4.00 k/uL 06/26/2025 10:48 PM EDT [facility] Monocytes % 6.3 % 06/26/2025 10:48 PM EDT [facility] Abs Billings 0.55 <0.87 k/uL 06/26/2025 10:48 PM EDT [facility] Eosinophils % 2.9 % 06/26/2025 10:48 PM EDT [facility] Abs Eosin 0.25 <0.46 k/uL 06/26/2025 10:48 PM EDT [facility] Basophils % 0.7 % 06/26/2025 10:48 PM EDT [facility] Abs Baso 0.06 <0.11 k/uL 06/26/2025 10:48 PM EDT [facility] Immature Granulocytes % 0.2 % 06/26/2025 10:48 PM EDT [facility] Abs Immature Gran <0.03 <0.10 k/uL 025 10:48 PM EDT [facility] NRBC 0.0 /100 WBC 06/26/2025 10:48 PM EDT [facility] Absolute nRBC <0.01 <0.01 k/uL 06/26/2025 10:48 PM EDT [facility] Diff Type Auto 06/26/2025 10:48 PM EDT [facility] Blood BLOOD SPECIMEN / Unknown Venipuncture / Unknown 06/26/2025 2:16 PM EDT 06/26/2025 2:16 PM EDT us Randa Boudreaux WATCH HAIRSPRING ASSEMBLER.BEARING MACHINE OPERATOR LABORATORY Final Res ult [facility] [address] [facility] [address] [place] [address], [place] * PT ED BARIATRIC AND METABOLIC (06/16/2025) 06/16/2025 Narrative EARLINE - 06/16/2025 Provider DENNIS your patient LACEY OZUNA started their Earline on 06-16-2025 and completed it on 06-16-2025 Earline program: GASTRIC BYPASS - LAPAROSCOPIC us Randa Boudreaux WATCH HAIRSPRING ASSEMBLER.BEARING MACHINE OPERATOR EARLINE Final Res ult EARLINE from Last 3 Months Additional Health Concerns Active Problems Noted Date Diagnosed Date Bariatric Surgery Lpta 06/17/2025 Autogenerated Problem 06/17/[address] [facility] MEDICAID [facility] Care Teams Monkey Keeper Relationship Specialty Start Date End Date Jamal Lozano APRN.CNP Referring Internal Medicine 11/05/[address] [place] [address] Registered Dietitian Nutrition 06/24/25
--- OUTSIDE RECORDS SUMMARY | 2025-07-27 10:13 | XMS_ITS | Encounter Summary ---
Author Organization [facility] Address [address] [place] [address] Care Team Providers Care After School Program Assistant Name Role Phone Jamal Lozano APRN.TARIFF CLERK Unavailable Simi Kearney RD Unavailable Source Comments In the event this information is protected by the Federal Confidentiality of Alcohol and Drug AbusePatient Records regulations: The Federal rules restrict any use of the information to criminally investigate or prosecute any alcohol or drug abuse patient.[facility] Encounter Details Date Type Department Care Team (Late st Contact Info) Description 06/23/2025 Patient Msg General Surgery [address] [place], [place] [phone] [place] [address] [address] [place] [address] Social History Tobacco Use Types Packs/Day Years [...] is lower risk 3 11/29/2023 Data from: https://www.neighborhoodatlas.medicine.[facility]/. Last address used for calculation [address] [...] 11:00 AM EDT Office Visit General Surgery [address] [place] [address] [phone] Randa Boudreaux, PLANNER SCHEDULER.TARIFF CLERK [address] [place] [id number] 1 month post op LRYGB 07/06/25 TA 09/30/2025 3:00 PM EST Education General Surgery [address] [place] [address] Simi Kearney, RD [address] [place], [place] [phone] 3 month post op LRYGB 07/06/25 TA 10/05/2025 2:30 PM EST [facility] General Surgery [address] [place] [address] Randa Bouderaux, PLANNER SCHEDULER.TARIFF CLERK [address] [address] 3 month post op LRYGB 07/06/25 TA documented as of this encounter Goals Goal Patient Goal Type Associated Problems Recent Progress Patient-Stated? Author Bariatric Surgery Timber Management Professor Care Plan Bariatric Surgery Timber Management Professor No Drew Hernandez Autogenerated Goal Care Plan Autogenerated Problem No Drew Hernandez documented as of this encounter Visit Diagnoses Not on filedocumented in this encounter Additional Health Concerns Active Problems Noted Date Diagnosed Date Bariatric Surgery Timber Management Professor 06/17/2025 Autogenerated Problem 06/17/2025 documented as of this encounter Care Teams After School Program Assistant Relationship Specialty Start Date End Date Jamal Lozano APRN.CNP Referring Internal Medicine 11/05/[address] [facility] [place] [address] Registered Dietitian Nutrition 06/24/25 documented as of this encounter
--- OUTSIDE RECORDS SUMMARY | 2025-07-27 10:13 | XMS_ITS | Encounter Summary ---
Author Organization [facility] Address [address] [facility] [address] Care Team Providers Care It Admin Name Role Phone Paty Crow Leslie DO Unavailable [phone] Raleigh Cleary DO Primary Care Provider [phone] Raleigh Cleary DO Unavailable [phone] Bernardo Londono DO Primary Care Provider [phone] Encounter Details Date Type Department Care Team (Late st Contact Info) Description 12/05/2023 Orders Only [facility] [place] [facility] [address] [facility] [address] [place] [address] A, Unknown Practice [address] [place], [place] [phone] Social History Tobacco Use Types Packs/Day Years Used Date Smoking Tobacco: Former Cigarettes Q uit: 10/15/2019 Smokeless Tobacco: Never Alcohol Use Standard Drinks/Week Comments Not Currently 0 (1 standard drink = 0.6 oz pure alcohol) Caffeine intake: 1- c green tea AUDIT-C Answer Date Recorded Q1: How often do you have a drink containing alcohol? Never 09/26/2023 Q2: How many drinks containi ng alcohol do you have on a typical day when you are drinking? Patient does not drink Q3: How often do you have si x or more drinks on one occasion? Never 09/26/2023 Education Answer Date Recorded What is the highest level of school you have completed or the highest degree you have received? High school graduate 09/18/2023 Comments Unknown Sex and Gender Information Value Date Recorded Sex Assigned at Not on file Legal Sex Female 11:23 PM EDT Gender Identity Not on file Sexual Orientation Not on file documented as of this encounter Plan of Treatment Upcoming Encounters Date Type Department Care Team (Late st Contact Info) Description 08/20/2025 2:30 PM EST Office Visit [facility] AR[facility]A [address] [place] [address] Belinda Douglas PA [address] [place] [address] documented as of this encounter Procedures Procedure Name Priority Date/Time Associated Diagnosis Comments SCANNED LABS Routine 11/28/2023 8:37 AM EST documented in this encounter Results * SCANNED LABS (11/28/2023 8:37 AM EST) us Unknown Practice A LAB CHG PERFORMABLES Final Re sult documented in this encounter Visit Diagnoses Not on filedocumented in this encounter Care Teams It Admin Relationship Specialty Start Date End Date Paty Crow, [address] [place] [address] PCP - [facility] PIPE CHIPPER 01/13/23 4 Raleigh Cleary, [address] [place] [address] PCP - General Internal Medicine 08/16/23 12/21/24 Raleigh Cleary, [address] [place] [address] PCP - [facility] PIPE CHIPPER 04/14/24 Bernardo Londono, [address] [place] [address] PCP - General Family Medicine 12/22/24 documented as of this encounter
--- OUTSIDE RECORDS SUMMARY | 2025-07-27 10:13 | XMS_ITS | Encounter Summary ---
Author Organization [facility] Address [address] [place] [address] Care Team Providers Care Rn Anesthesiology Name Role Phone Jamal Lozano APRN.ALL SOURCE COLLECTION MANAGER Unavailable [phone] Unavailable Source Comments In the event this information is protected by the Federal Confidentiality of Alcohol and Drug AbusePatient Records regulations: The Federal rules restrict any use of the information to criminally investigate or prosecute any alcohol or drug abuse patient.[facility] Encounter Details Date Type Department Care Team (Late st Contact Info) Description 02/12/2025 Patient Msg General Surgery [address] [place], [place] [phone] Provider, [facility] Nutrition Summary Social History Tobacco [...] is lower risk 3 11/29/2023 Data from: https://www.neighborhoodatlas.medicine.[facility].edu/. Last address used for calculation [address] [...] 11:00 AM EDT Office Visit General Surgery [address] [place] [address] Randa Boudreaux, LIANNA.ALL SOURCE COLLECTION MANAGER [address] [address] 1 month post op LRYGB 07/06/25 TA 09/30/2025 3:00 PM EST Education General Surgery [address] [place] [address] [place], [place] [phone] 3 month post op LRYGB 07/06/25 TA 10/05/2025 2:30 PM EST [facility] General Surgery [facility] [place] [address] Randa Boudreaux, SOLUTION DEVELOPER.ALL SOURCE COLLECTION MANAGER [address] [address] 3 month post op LRYGB 07/06/25 TA documented as of this encounter Visit Diagnoses Not on filedocumented in this encounter Care Teams Rn Anesthesiology Relationship Specialty Start Date End Date Jamal Lozano APRN.ALL SOURCE COLLECTION MANAGER Referring Internal Medicine 11/05/[address] [place] [address] Registered Dietitian Nutrition 06/24/25 documented as of this encounter
--- OUTSIDE RECORDS SUMMARY | 2025-07-27 10:13 | XMS_ITS | Encounter Summary ---
Author Organization [facility] Address [facility] [place] [address] Care Team Providers Care Restaurant Crew Person Name Role Phone MartaJamal FOREST FIRE FIGHTER Unavailable Simi Kearney RD Unavailable Source Comments In the event this information is protected by the Federal Confidentiality of Alcohol and Drug AbusePatient Records regulations: The Federal rules restrict any use of the information to criminally investigate or prosecute any alcohol or drug abuse patient.[facility] Reason for Referral * Consult, Test, Treat (Routine) - Authorized Specialty Diagnoses / Procedures Referred By Contac t Referred To Contact Diagnoses Obesity, Class II, BMI 35-39.9 Pre-op testing Procedures OFFICE/OUTPATIENT NEW HIGH MDM 60 MINUTES Randa Boudreaux APRN.FOREST FIRE FIGHTER [address] [address] Phone: tel: fax: Referral ID Status Reason Start Date Expiration Date Visits Requested Visits Authorized [id number] Authorized PCP Requested Referral 06/16/2025 06/16/2026 1 1 Reason for Visit * Reason Comments 07/06/2025 LRYGB Encounter Details Date Type Department Care Team (Late st Contact Info) Description 06/16/2025 Patient Update General Surgery [address] [place] [phone] [place] [address] [place] [address] 07/06/2025 (LRYGB ) Social History Tobacco Use Types Packs/Day Years [...] is lower risk 3 11/29/2023 Data from: https://www.neighborhoodatlas.medicine.[facility].edu/. Last address used for calculation [address] 11/29/2023 Comments No Sex and [...] 11:00 AM EDT Office Visit General Surgery [address] [place] [address] Randa Boudreaux APRN.CNP [address] [address] [facility] [address] [place] [id number] 1 month post op LRYGB 07/06/25 TA 09/30/2025 3:00 PM EST Education General Surgery [address] [place] [phone] Simi Kearney RD [address] [place] [address] 3 month post op LRYGB 07/06/25 TA 10/05/2025 2:30 PM [facility] [address] [place] [address] Randa Boudreaux APRN.FOREST FIRE FIGHTER [address] [phone] 3 month post op LRYGB 07/06/25 TA Scheduled Referrals Name Type Priority Associated Diagnoses Orde r Schedule REFER TO [facility]IVE [facility]IM[facility] Referral Routine Obesity, Class II, BMI 35-39.9 Pre-op testing 1 Occurrences starting 06/16/2025 documented as of this encounter Results * (ABNORMAL) COMPREHENSIVE METABOLIC PANEL (06/26/2025 2:16 PM EDT) Pathologist [facility] Protein, Total 7.6 6.3 - 8.0 g/dL 06/27/2025 8:51 AM EDT [facility] Albumin 4.7 3.9 - 4.9 g/dL 06/27/2025 8:51 AM EDT [facility] Calcium, Total 9.7 8.5 - 10.2 mg/dL 06/27/2025 8:51 AM EDT [facility] Bilirubin, Total 1.5(H) 0.2 - 1.3 mg/dL 06/27/2025 8:51 AM EDT [facility] Alkaline Phosphatase 78 34 - 123 U/L 06/27/2025 8:51 AM EDT [facility] AST 72(H) 13 - 35 U/L 06/27/2025 8:51 AM T [facility] ALT 143(H) 7 - 38 U/L 06/27/2025 [facility] Glucose 73(L) 74 - 99 mg/dL 06/27/2025 8:51 AM [facility] Comment: The [place] Diabetes Association (ADA) provides guidance for cutoff [...] Standards of Medical Care in Diabetes 2016, [place] Diabetes Association. Diabetes Care. 2016.39(Suppl 1). BUN 14 7 - 21 mg/dL 06/27/2025 8:51 AM [facility] Creatinine 0.82 0.58 - 0.96 mg/dL 06/27/2025 8:51 AM [facility] Sodium 137 136 - 144 mmol/L 06/27/2025 8:51 AM [facility] Potassium 4.4 3.7 - 5.1 mmol/L 06/27/2025 8:51 AM [facility] Chloride 100 98 - 107 mmol/L 06/27/2025 8:51 AM [facility] CO2 23 22 - 30 mmol/L 06/27/2025 8:51 AM [facility] Anion Gap 14 8 - 15 mmol/L 06/27/2025 8:51 AM [facility] Estimated Glomerular Filtration Rate 98 >=60 mL/min/1.7 3m 06/27/2025 8:51 AM [facility] Comment:Estimated Glomerular Filtration Rate (eGFR) is [...] 06/26/2025 2:16 PM EDT us Randa Boudreaux STRAPPER AND BUFFER.FOREST FIRE FIGHTER LABORATORY Final Res ult [facility] [address] [facility] [place] [address], * (ABNORMAL) COMPLETE BLOOD COUNT AND DIFFERENTIAL (06/26/2025 2:16 PM EDT) WBC 8.67 3.70 - 11.00 k/uL 06/26/2025 10:48 PM EDT [facility] RBC 5.22(H) 3.90 - 5.20 m/uL 06/26/2025 10:48 PM EDT [facility] Hemoglobin 14.9 11.5 - 15.5 g/dL 06/26/2025 10:48 PM EDT [facility] Hematocrit 45.7 36.0 - 46.0 % 06/26/2025 10:48 PM EDT [facility] MCV 87.5 80.0 - 100.0 fL 06/26/2025 10:48 PM EDT [facility] MCH 28.5 26.0 - 34.0 pg 06/26/2025 10:48 PM EDT [facility] MCHC 32.6 30.5 - 36.0 g/dL 06/26/2025 10:48 PM EDT [facility] RDW-CV 12.8 11.5 - 15.0 % 06/26/2025 10:48 PM EDT [facility] Platelet Count 296 150 - 400 k/uL 06/26/2025 10:48 PM EDT [facility] MPV 10.7 9.0 - 12.7 fL 06/26/2025 10:48 PM EDT [facility] Neutrophils % 60.1 % 06/26/2025 10:48 PM EDT [facility] Abs Neut 5.21 1.45 - 7.50 k/uL 06/26/2025 10:48 PM EDT [facility] Lymphocytes % 29.8 % 06/26/2025 10:48 PM EDT [facility] Abs Lymph 2.58 1.00 - 4.00 k/uL 06/26/2025 10:48 PM EDT [facility] Monocytes % 6.3 % 06/26/2025 10:48 PM EDT [facility] Abs [place] 0.55 <0.87 k/uL 06/26/2025 10:48 PM EDT [facility] Eosinophils % 2.9 % 06/26/2025 10:48 PM EDT [facility] Abs Eosin 0.25 <0.46 k/uL 06/26/2025 10:48 PM EDT [facility] Basophils % 0.7 % 06/26/2025 10:48 PM EDT [facility] Abs Baso 0.06 <0.11 k/uL 06/26/2025 10:48 PM EDT [facility] Immature Granulocytes % 0.2 % 06/26/2025 10:48 PM EDT [facility] Abs Immature Gran <0.03 <0.10 k/uL 025 10:48 PM EDT [facility] NRBC 0.0 /100 WBC 06/26/2025 10:48 PM EDT [facility] Absolute nRBC <0.01 <0.01 k/uL 06/26/2025 10:48 PM EDT [facility] Diff Type Auto 06/26/2025 10:48 PM EDT [facility] Blood BLOOD SPECIMEN / Unknown Venipuncture / Unknown 06/26/2025 2:16 PM EDT 06/26/2025 2:16 PM EDT us Randa Boudreaux STRAPPER AND BUFFER.FOREST FIRE FIGHTER LABORATORY Final Res ult [facility] [address] [place] [address], documented in this encounter Visit Diagnoses Diagnosis Obesity, Class II, BMI 35-39.9- Primary Obesity, unspecified Pre-op testing Preoperative examination, unspecified documented in this encounter Care Teams Restaurant Crew Person Relationship Specialty Start Date End Date Jamal Lozano APRN.CNP Referring Internal Medicine 11/05/23 Simi Kearney, NENA [address] [place] [address] Registered Dietitian Nutrition 06/24/25 documented as of this encounter
--- OUTSIDE RECORDS SUMMARY | 2025-07-27 10:13 | XMS_ITS | Encounter Summary ---
Author Organization [facility] Address [address] [facility] [place] [address] Care Team Providers Care Air Press Operator Name Role Phone Paty Crow Leslie DO Unavailable [phone] Raleigh Cleary DO Primary Care Provider [phone] Raleigh Cleary DO Unavailable [phone] Bernardo Londono DO Primary Care Provider [phone] Encounter Details Date Type Department Care Team (Late st Contact Info) Description 11/28/2023 Orders Only [facility] [place] [facility] [address] [facility] [address] [place] [address] A, Unknown Practice [address] [place], [place] [phone] Social History Tobacco Use Types Packs/Day Years [...] EST Office Visit [facility] ARORA [address] [facility] [place] [place] [address] Belinda Douglas PA [address] [facility] [place] [address] documented as of this encounter Procedures Procedure Name Priority Date/Time Associated Diagnosis Comments SCANNED LABS Routine 11/28/2023 9:45 AM EST documented in this encounter Results * SCANNED LABS (11/28/2023 9:45 AM EST) us Unknown Practice A LAB CHG PERFORMABLES Final Re sult documented in this encounter Visit Diagnoses Not on filedocumented in this encounter Care Teams Air Press Operator Relationship Specialty Start Date End Date Paty Crow, [address] [place] [address] PCP - [facility] SERVER ENGINEER 01/13/23 4 Raleigh Cleary, [address] [place] [address] PCP - General Internal Medicine 08/16/23 12/21/24 Raleigh Cleary, [address] [place] [address] PCP - [facility] SERVER ENGINEER 04/14/24 Bernardo Londono, [address] [place] [address] PCP - General Family Medicine 12/22/24 documented as of this encounter
--- OUTSIDE RECORDS SUMMARY | 2025-07-27 10:13 | XMS_ITS | Encounter Summary ---
Author Organization [facility] Address [address] [place] [address] Care Team Providers Care Senior Mechanical Estimator Name Role Phone MartaJamal LIANNA.PRESS MANAGER Unavailable Simi Kearney RD Unavailable Source Comments In the event this information is protected by the Federal Confidentiality of Alcohol and Drug AbusePatient Records regulations: The Federal rules restrict any use of the information to criminally investigate or prosecute any alcohol or drug abuse patient.[facility] Encounter Details Date Type Department Care Team (Late st Contact Info) Description 01/11/2024 Patient Msg General Surgery [address] [place], [place] [phone] Karlene Gonzalez, COKE CRANE OPERATOR.PRESS MANAGER [address] [place] [address] Welcome to the BMI! Social History Tobacco Use Types Packs/Day Years [...] is lower risk 3 11/29/2023 Data from: https://www.neighborhoodatlas.medicine.[facility]/. Last address used for calculation [...] 11:00 AM EDT Office Visit General Surgery [address] [place] [address] Randa Boudreaux, LIANNA.PRESS MANAGER [address] [address] 1 month post op LRYGB 07/06/25 TA 09/30/2025 3:00 PM EST Education General Surgery [id number] [place] [address] Simi Kearney, RD [address] [place], [place] [phone] 3 month post op LRYGB 07/06/25 TA 10/05/2025 2:30 PM EST [facility] General Surgery [address] [place] [address] Randa Boudreaux APRN.PRESS MANAGER [address] [address] 3 month post op LRYGB 07/06/25 TA documented as of this encounter Visit Diagnoses Not on filedocumented in this encounter Care Teams Senior Mechanical Estimator Relationship Specialty Start Date End Date Jamal Lozano APRN.PRESS MANAGER Referring Internal Medicine 11/05/[address] [place] [address] Registered Dietitian Nutrition 06/24/25 documented as of this encounter
--- OUTSIDE RECORDS SUMMARY | 2025-07-27 10:13 | XMS_ITS | Encounter Summary ---
Author Organization [facility] Address [address] [place] [address] Care Team Providers Care Offshore Diver Name Role Phone Jamal Lozano APRN.COMMAND CENTER OFFICER Unavailable Simi Kearney RD Unavailable Source Comments In the event this information is protected by the Federal Confidentiality of Alcohol and Drug AbusePatient Records regulations: The Federal rules restrict any use of the information to criminally investigate or prosecute any alcohol or drug abuse patient.[facility] Encounter Details Date Type Department Care Team (Late st Contact Info) Description 12/13/2023 Patient Msg General Surgery [address] [place], [place] [phone] Provider, Ccchicho Nutrition Summary Social History Tobacco Use Types Packs/Day Years Used Date Smoking Tobacco: Never Assessed Area Deprivation Index Answer Date Eliseo rded National Score (1-100), lower number is lower ri sk 53 11/29/2023 State Score (1-10), lower number is lower risk 3 11/29/2023 Data from: https://www.neighborhoodatlas.medicine.[facility].edu/. Last address used for calculation [address] [...] 11:00 AM EDT Office Visit General Surgery [id number] [place], [place] [address] [place] [phone] Randa Boudreaux, BUYING INTERN.COMMAND CENTER OFFICER [address] [address] 1 month post op LRYGB 07/06/25 TA 09/30/2025 3:00 PM EST Education General Surgery [facility] [address] [place] [phone] Simi Kearney RD [address] [place], [place] [phone] 3 month post op LRYGB 07/06/25 TA 10/05/2025 2:30 PM EST [facility] General Surgery [address] [place], [place] [address] [place] [address] Randa Boudreaux, BUYING INTERN.COMMAND CENTER OFFICER [address] [address] 3 month post op LRYGB 07/06/25 TA documented as of this encounter Visit Diagnoses Not on filedocumented in this encounter Care Teams Offshore Diver Relationship Specialty Start Date End Date Jamal Lozano APRN.COMMAND CENTER OFFICER Referring Internal Medicine 11/05/[address] [place], [place] [phone] Registered Dietitian Nutrition 06/24/25 documented as of this encounter
--- OUTSIDE RECORDS SUMMARY | 2025-07-27 10:13 | XMS_ITS | Encounter Summary ---
Author Organization [facility] Address [address] [facility] [place] [address] Care Team Providers Care Tool Setter Apprentice Name Role Phone Paty Crow DO Unavailable [phone] Chely Branham MD, IBCLC Primary Care Provid er Raleigh Cleary DO Primary Care Provider [phone] Raleigh Cleary DO Unavailable [phone] Bernardo Londono DO Primary Care Provider [phone] Encounter Details Date Type Department Care Team (Late st Contact Info) Description 07/11/2023 Abstract [facility] [address] [place] [phone] Chely Branham MD, IBCLC [address] [place] [address] Social History Tobacco Use Types [...] 08/20/2025 2:30 PM EST Office Visit [facility] [address] [facility] [place] [phone] Belinda Douglas PA [address] [place] [address] [place] [address] documented as of this encounter Visit Diagnoses Not on filedocumented in this encounter Care Teams Tool Setter Apprentice Relationship Specialty Start Date End Date Paty Crow, DO [address] [place] [address] PCP - [facility] 01/13/23 4 Chely Branham MD, IBCLC [address] [place] [address] PCP - General Family Medicine 07/11/23 08/15/23 Raleigh Cleary, [address] [place] [address] PCP - General Internal Medicine 08/16/23 12/21/24 Raleigh Cleary, [address] [place] [address] PCP - [facility] 04/14/24 Bernardo Londono, DO [address] [place] [address] PCP - General Family Medicine 12/22/24 documented as of this encounter
--- OUTSIDE RECORDS SUMMARY | 2025-07-27 10:13 | XMS_ITS | Encounter Summary ---
Author Organization [facility] Address [address] [place] [address] Care Team Providers Care Agency Development Manager Name Role Phone Jamal Lozano APRN.DIELECTRIC TESTER Unavailable [phone] Unavailable Source Comments In the event this information is protected by the Federal Confidentiality of Alcohol and Drug AbusePatient Records regulations: The Federal rules restrict any use of the information to criminally investigate or prosecute any alcohol or drug abuse patient.[facility] Encounter Details Date Type Department Care Team (Late st Contact Info) Description 01/05/2025 Patient Msg General Surgery [address] [place], [place] [phone] Provider, Ccchicho Standard Welcome Letter Social History Tobacco Use Types Packs/Day Years [...] is lower risk 3 11/29/2023 Data from: https://www.neighborhoodatlas.medicine.[facility].edu/. Last address used for calculation [address] [...] 11:00 AM EDT Office Visit General Surgery [address] [place] [address] Randa Boudreaux, LIANNA.DIELECTRIC TESTER [address] [address] 1 month post op LRY[facility] 07/06/25 TA 09/30/2025 3:00 PM EST Education General Surgery [address] [place] [address] [place], [place] [id number] 3 month post op LRYGB 07/06/25 TA 10/05/2025 2:30 PM EST [facility] General Surgery [address] [place] [address] Randa Boudreaux, HOME DEPOT REP.DIELECTRIC TESTER [address] [address] 3 month post op LRYGB 07/06/25 TA documented as of this encounter Visit Diagnoses Not on filedocumented in this encounter Care Teams Agency Development Manager Relationship Specialty Start Date End Date Jamal Lozano APRN.DIELECTRIC TESTER Referring Internal Medicine 11/05/[address] [place] [address] Registered Dietitian Nutrition 06/24/25 documented as of this encounter
--- OUTSIDE RECORDS SUMMARY | 2025-07-27 10:13 | XMS_ITS | Encounter Summary ---
Author Organization [facility] Address [address] [place] [address] Care Team Providers Care Instrument And Controls Technician Name Role Phone Paty Crow DO Unavailable [phone] Raleigh Cleary DO Primary Care Provider [phone] Raleigh Cleary DO Unavailable [phone] Bernardo Londono DO Primary Care Provider [phone] Encounter Details Date Type Department Care Team (Late Contact Info) Description 08/16/2023 Abstract [facility] [place] [facility] [address] [facility] [address] [place] [phone] Raleigh Cleary DO [address] [facility] [address] [place] [address] Social History Tobacco Use Types Packs/Day Years [...] Encounters Date Type Department Care Team (Late Contact Info) Description 08/20/2025 2:30 PM EST Office Visit [facility] [address] [facility] [place] [phone] Belinda Douglas PA [address] [facility] [address] [place], [place] [phone] documented as of this encounter Visit Diagnoses Not on filedocumented in this encounter Care Teams Instrument And Controls Technician Relationship Specialty Start Date End Date Paty Crow DO [address] [place] [address] PCP - [facility] 01/13/23 4 Raleigh Cleary, [address] [place] [address] PCP - General Internal Medicine 08/16/23 12/21/24 Raleigh Cleary DO [address] [place] [address] PCP - [facility] 04/14/24 Bernardo Londono, [address] [place] [address] PCP - General Family Medicine 12/22/24 documented as of this encounter
--- OUTSIDE RECORDS SUMMARY | 2025-07-27 10:13 | XMS_ITS | Encounter Summary ---
Author Organization [facility] Address [address] [facility] [place] [address] Care Team Providers Care Bundle Tier Name Role Phone Paty Crow Leslie DO Unavailable [phone] Raleigh Cleary DO Primary Care Provider [phone] Raleigh Cleary DO Unavailable [phone] Bernardo Londono DO Primary Care Provider [phone] Encounter Details Date Type Department Care Team (Late st Contact Info) Description 08/30/2023 Orders Only [facility] [address] [facility] [address] [place] [address] A, Unknown Practice [address] [place], [place] [phone] Social History Tobacco Use Types Packs/Day Years [...] PM EST Office Visit [facility] [address] [facility] [place] [phone] Belinda Douglas PA [address] [facility] [place] [address] documented as of this encounter Procedures Procedure Name Priority Date/Time Associated Diagnosis Comments SCANNED LABS Routine 07/12/2023 11:42 AM EDT documented in this encounter Results * SCANNED LABS (07/12/2023 11:42 AM EDT) us Unknown Practice A LAB CHG PERFORMABLES Final Re sult documented in this encounter Visit Diagnoses Not on filedocumented in this encounter Care Teams Bundle Tier Relationship Specialty Start Date End Date Paty Crow, [address] [place] [address] PCP - [facility] 01/13/23 4 Raleigh Cleary DO [address] [place] [address] PCP - General Internal Medicine 08/16/23 12/21/24 Raleigh Cleary, [address] [place] [address] PCP - [facility] 04/14/24 Bernardo Londono, [address] [place] [address] PCP - General Family Medicine 12/22/24 documented as of this encounter
--- OUTSIDE RECORDS SUMMARY | 2025-07-27 10:13 | XMS_ITS | Clinical Summary ---
Author Organization [facility] Address [address] [place] [address] Phone Care Team Providers Care Farmer General Name Role Phone Unavailable Primary Care Provider Unavailabl e Social History Tobacco Use Types Packs/Day Years Used Date Smoking Tobacco: Never Assessed Comments Unknown Sex and Gender Information Value Date Recorded Sex Assigned at Not on file Legal Sex Female 5:59 PM EST Gender Identity Not on file Sexual Orientation Not on file Plan of Treatment Not on file
--- OUTSIDE RECORDS SUMMARY | 2025-07-27 10:13 | XMS_ITS | Encounter Summary ---
Author Organization [facility] Address [address] [place] [address] Care Team Providers Care Automotive Artist Name Role Phone Jamal Lozano APRN.CAR LOT ATTENDANT Unavailable Simi Kearney RD Unavailable Source Comments In the event this information is protected by the Federal Confidentiality of Alcohol and Drug AbusePatient Records regulations: The Federal rules restrict any use of the information to criminally investigate or prosecute any alcohol or drug abuse patient.[facility] Encounter Details Date Type Department Care Team (Late st Contact Info) Description 02/21/2024 Patient Msg Ambulatory Surgery [address] [place], [place] [phone] Provider, [facility] Upper endoscopy instructions Social History Tobacco Use Types Packs/Day Years [...] is lower risk 3 11/29/2023 Data from: https://www.neighborhoodatlas.medicine.[facility].edu/. Last address used for calculation [address] [...] 11:00 AM EDT Office Visit General Surgery [address] [place] [address] Randa Boudreaux, LIANNA.CAR LOT ATTENDANT [address] [address] 1 month post op LRY[facility] 07/06/25 TA 09/30/2025 3:00 PM EST Education General Surgery [address] [place] [address] [place], [place] [id number] 3 month post op LRYGB 07/06/25 TA 10/05/2025 2:30 PM EST [facility] General Surgery [facility] [place] [address] Randa Boudreaux, OUTREACH REPRESENTATIVE.CAR LOT ATTENDANT [address] [address] 3 month post op LRYGB 07/06/25 TA documented as of this encounter Visit Diagnoses Not on filedocumented in this encounter Care Teams Automotive Artist Relationship Specialty Start Date End Date Jamal Lozano APRN.CAR LOT ATTENDANT Referring Internal Medicine 11/05/[address] [place] [address] Registered Dietitian Nutrition 06/24/25 documented as of this encounter
--- OUTSIDE RECORDS SUMMARY | 2025-07-27 10:16 | XMS_ITS | CCD ---
Author Organization [facility] Care Team Providers Care Vocational Training Director Name Role Phone ORLANDO LO Unavailable Unavailable ORLANDO LO Unavailable Unavailable Flores, Skylar J Unavailable Unavailable Flores, Skylar J Unavailable Unavailable Stacey, Orlando Wallace Unavailable Unavailable Stacey, Orlando Wallace Unavailable Unavailable Flores, Skylar J Unavailable Unavailable Flores, Skylar J Unavailable Unavailable Flores, Skylar J Unavailable Unavailable Stacey, Orlando Wallace Unavailable Unavailable *SELF, REFERRED Unavailable Unavailable Stacey, Orlando Wallace Unavailable Unavailable Stacey, Orlando Wallace Unavailable Unavailable Nisha Rodriguez Unavailable Unavailable Radha Salazar Unavailable Unavailable Radha Salazar Unavailable Unavailable Radha Salazar Unavailable Unavailable Stacey, Orlando Wallace Unavailable Unavailable Vandixon Nisha Mary Unavailable Unavailable Unavailable Primary Care Provider Unavailabl e Unavailable Primary Care Provider Unavailabl e LENCOSKI, GERRI D Referring Unavailable LENCOSKI, GERRI D Referring Unavailable LENCOSKI, GERRI D Admitting Unavailable LENCOSKI, GERRI D Attending Unavailable LENCOSKI, GERRI D Referring Unavailable [facility], Services Primary Care Provider DO Yumiko Brown Attending Provider [phone] DO Fely Wood Admit Provider [phone] DO Fely Wood Attending Provider [phone] DR ADEOLA HUNTER V Admitting Unavailable DR ADEOLA HUNTER V Consulting Unavailable DR ADEOLA HUNTER V Attending Unavailable YUMIKO BROWN Admitting Unavailable YUMIKO BROWN Consulting Unavailable YUMIKO BROWN Attending Unavailable [facility], Services Primary Care Unavaila ble Tupa, Tony M Attending Unavailable Tony Fisher Admitting Unavailable Marta Jamal MAYER Unavailable Raleigh Cleary DO Unavailable Bernardo Londono DO Primary Care Provider Marta SUSTAINABILITY PROJECT COORDINATOR.Jamal MAYER Unavailable [phone] ARKHIPOVA-JOSE, SHANKAR Referring Unavail able ARKHIPOVA-JOSE, SHANKAR Referring Unavail able ARKHIPOVA-JOSE, SHANKAR Attending Unavail able ARKHIPOVA-JOSE, SHANKAR Referring Unavail able ARKHIPOVA-JOSE, SHANKAR Attending Unavail able Marta SUSTAINABILITY PROJECT COORDINATOR.Jamal MAYER Unavailable Kanani DDS, Karon Attending Unavailable Kanani DDS, Karon Unavailable Unavailable Kanani DDS, Karon Unavailable Unavailable Kearney RD, Ramya Unavailable JANET MALCOLM Attending Unavailable MALCOLM, TOMS Admitting Unavailable NELDA URIBE Attending Unavailable SONI, YADIEL Attending Unavailable SONIYADIEL Pope Attending Unavailable MALCOLM, TOMS Referring Unavailable KEARNEY, RAMYA Attending Unavailable MALCOLM, TOMS Referring Unavailable MALCOLM, TOMS Attending Unavailable LAURE DHILLON Attending Unavailable ARKHIPOVA-JOSE, SHANKAR Referring Unavail able BRAULIO VENTURA Attending Unavailable LAURE DHILLON Attending Unavailable ARKHIPOVA-JOSE, SHANKAR Attending Unavail able MALCOLM, TOMS Attending Unavailable HOLLY MONTOYA Attending Unavailable KEARNEY, RAMYA Attending Unavailable MALCOLM, TOMS Referring Unavailable RANDA BOUDREAUX Attending Unavailable MALCOLM, TOMS Referring Unavailable Medications Current Medications Medication Drug [...] mouth daily 120 capsule 0 01/14/2021 Active docusate sodium 50 mg / sennosides, care home 8.6 mg oral tablet (4 sources) Start: 06-23-2025 End: 07-23-2025 take 8.6-50 mg by mouth in the morning senna-docusate (Mariya-Colace) 8.6-50 MG tablet Take 1 tablet by mouth in the morning. 06/23/2025 07/23/2025 Active Start: 06-23-2025 End: 07-23-2025 take 1 tablet by mouth once daily senna-docusate (SENNA-S) 8.6-50 mg per tablet Indications: Obesity, Class II, BMI 35-39.9 , Pre-op testing , Morbid obesity due to excess calories (HCC) Take 1 tablet by mouth once daily. 30 tablet 06/23/2025 07/23/2025 Active etonogestrel 68 mg drug implant (3 [...] nipple discomfort, Starting Chelsie 01/13/21 at 1727, metroNIDAZOLE 500 mg oral tablet (2 sources) Nitroimidazole Antimicrobial Start: 06-02-2025 End: 06-09-2025 take 1 tablet by mouth in the morning metroNIDAZOLE (Flagyl) 500 MG tablet Indications: Vaginal discharge Take 1 tablet (500 mg) by mouth in the morning and 1 tablet (500 mg) before bedtime. Do all this for 7 days. 14 tablet 06/02/2025 06/09/2025 Active omeprazole 40 mg delayed release oral capsule (4 sources) Proton Pump Inhibitor Start: 06-23-2025 take 1 capsule by mouth in the morning omeprazole (PriLOSEC) [address] capsule Take 40 mg by mouth in the morning. 06/23/2025 Active ondansetron 4 mg disintegrating oral tablet (5 sources) Serotonin-3 Receptor Antagonist Start: 06-23-2025 take 1 tablet by mouth every eight hours as needed ondansetron ODT (Zofran-ODT) 4 MG disintegrating tablet Take 4 mg by mouth every 8 (eight) hours if needed 06/23/2025 Active Start: 01-13-2021 4 mg, Intraven ous, EVERY 6 HOURS PRN, Nausea, Starting [facility] 01/13/21 at 1727, oxyCODONE hydrochloride 5 mg oral tablet (3 sources) Opioid Agonist Start: 06-23-2025 End: 06-26-2025 take 1 tablet by mouth every eight hours as needed for pain oxyCODONE IR (ROXICODONE) 5 mg immediate release tablet Indications: Obesity, Class II, BMI 35-39.9 , Pre-op testing , Morbid obesity due to excess calories (HCC) Take 1 tablet by mouth every 8 hours as needed for pain for up to 3 days. 5 tablet 06/23/2025 06/26/2025 Active Vit-Fe Nje-TI-Gmuuw (GNP DAILY ) 28-0.8 & 440 MG MISC (2 sources) Start: 07-23-2020 take 1 tablet by mouth once daily Vit-Fe Fja-VF-Qfxdf (GNP DAILY ) 28-0.8 & 440 MG [...] injection (2 sources) Start: 01-13-2021 10 mL, Intrave nous, EVERY 12 HOURS SCHEDULED (2 times per day), First dose on Chelsie 01/13/21 at 2100, Start: 01-13-2021 take 10 mL intravenous route o nce 10 mL, Intravenous, PRN, Line Care, Starting Chelsie 01/13/21 at 1727 After every IV line use spironolactone 50 mg oral tablet (20 sources) Aldosterone Antagonist Start: 11-05-2023 End: 12-22-2024 take 1 tablet by mouth once daily in the morning spironolactone (ALDACTONE) 50 mg tablet Take 50 mg by mouth every morning. 11/05/2023 Active Comment on above: Take 50 mg by mouth every morning. Completed/Discontinued Medications Medication Drug Class(es) Dates Sig (Normalized) Sig (Original) calcium chloride 0.0014 meq/ml / potassium chloride 0.004 meq/ml / sodium chloride 0.103 meq/ml / sodium lactate 0.028 meq/ml injectable solution (1 source) Start: 01-12-2021 End: 01-13-2021 lactated ringers infusion clindamycin 10 mg/ml topical solution (2 sources) Lincosamide Antibacterial Start: 03-28-2024 End: 12-22-2024 clindamycin (Cleocin T) 1 % external solution Indications: Bacterial folliculitis Apply to affected areas on the backs of the thighs, once daily when flared, 30 day supply. 60 mL 11 03/28/2024 12/22/2024 Discontinued guaiFENesin 400 mg oral tablet (1 source) Start: 09-24-2020 End: 01-14-2021 take 1 tablet by mouth every four hours as needed guaiFENesin 400 MG tablet TAKE 1 TABLET BY MOUTH EVERY 4 HOURS NEEDED 0 09/24/2020 01/14/2021 Discontinued (Stop Taking at Discharge) ammonium lactate 120 mg/ml topical lotion (2 sources) Start: 03-28-2024 End: 12-22-2024 ammonium lactate (Lac-Hydrin) 12 % lotion Indications: Acanthosis nigricans Apply to affected areas on body daily. 396 g 11 03/28/2024 12/22/2024 Discontinued metFORMIN hydrochloride 1000 mg oral tablet (2 sources) Biguanide Start: 04-02-2024 End: 12-22-2024 take 1 tablet by mouth at mealtime metFORMIN (Glucophage) 1000 MG tablet Indications: Obesity (BMI 30-39.9) , BMI 35.0-35.9,adult , Insulin resistance , PCOS (polycystic ovarian syndrome) Take 1 tablet (1,000 mg) by mouth in the morning. Take with meals. 30 tablet 5 04/02/2024 12/22/2024 Discontinued miSOPROStol (CYTOTEC) pre-split tablet TABS 25 mcg (1 source) Start: 01-12-2021 End: 01-13-2021 miSOPROStol (CYTOTEC) pre-split tablet TABS 25 mcg 1 ml nalbuphine hydrochloride 10 mg/ml injection (1 source) Opioid Agonist/Antagonist Start: 01-13-2021 End: 01-13-2021 nalbuphine (NUBAIN) injection 10 mg oxytocin (PITOCIN) 30 units in 500 mL infusion (1 source) Start: 01-12-2021 End: 01-13-2021 oxytocin (PITOCIN) 30 units in 500 mL infusion 72 hr scopolamine 0.0139 mg/hr transdermal system (1 source) Anticholinergic Start: 06-23-2025 End: 06-23-2025 scopolamine (TRANSDERM-SCOP) patch 1.5 mg/72 hr (delivers 1 mg over 3 days) Indications: Obesity, Class II, BMI 35-39.9 , Pre-op testing , Morbid obesity due to excess calories (HCC) Apply 1 patch as directed one time only for 1 dose. Apply behind ear the night before surgery at 6pm. Remove patch after 72 hours. 1 patch 06/23/2025 06/23/2025 Semaglutide,0.25 or 0.5MG/DOS, (Ozempic, 0.25 or 0.5 MG/DOSE,) 2 MG/3ML solution pen-injector (2 sources) Start: 03-05-2024 End: 12-22-2024 inject 0.5 mg by subcutaneous injection every week, then inject 1 mg by subcutaneous injection every week Semaglutide,0.25 or 0.5MG/DOS, (Ozempic, 0.25 or 0.5 MG/DOSE,) 2 MG/3ML solution pen-injector Indications: Type 2 Diabetes Mellitus Inject 0.5 mg under the skin 1 (one) time per week for 30 days, THEN 1 mg 1 (one) time per week. 3 mL 3 03/05/2024 12/22/2024 Discontinued Tirzepatide (Mounjaro) 2.5 MG/0.5ML solution pen-injector (2 sources) Start: 03-25-2024 End: 12-22-2024 inject 2.5 mg by subcutaneous injection every week Tirzepatide (Mounjaro) 2.5 MG/0.5ML solution pen-injector Indications: Insulin resistance Inject 2.5 mg under the skin 1 (one) time per week 2 mL 1 03/25/2024 12/22/2024 Discontinued Problems Active Problems Problem Classification Problem Date Documented Da te Episodic/Chronic Acute and chronic tonsillitis (1 source) Hypertrophy of tonsils; Translations: [Hypertrophy of tonsils] Onset: 06-24-2018 Chronic Administrative/social admission (10 sources) Patient encounter status; Translations: [Dietary counseling and surveillance] Onset: 08-29-2023 12-13-2023 Episodic Anxiety disorders (20 sources) Anxiety disorder, unspecified; Translations: [Anxiety disorder] Onset: 07-09-2023 01-11-2024 Chronic Disorders of lipid metabolism (2 sources) Dyslipidemia; Translations: [Hyperlipidemia, unspecified] Onset: 01-21-2025 01-21-2025 Chronic Essential hypertension (20 sources) Hypertensive disorder; Translations: [Essential (primary) hypertension] Onset: 01-11-2024 01-11-2024 Chronic Immunizations and screening for infectious disease (1 source) Exposure to sexually transmissible disorder; Translations: [Contact with and (suspected) exposure to infections with a predominantly sexual mode of transmission] 06-02-2025 Episodic Menstrual disorders (1 source) Amenorrhea; Translations: [Amenorrhea] Chronic Other aftercare (1 source) Encounter for surgical aftercare following surgery on the digestive system; Translations: [Encounter for surgical aftercare following surgery of digestive system] Onset: 07-06-2025 Episodic Other endocrine disorders (20 sources) Polycystic ovarian syndrome; Translations: [Polycystic ovary syndrome] Onset: 08-02-2018 Resolved: 09-27-2023 08-02-2018 Chronic Other female genital disorders (1 source) Pain in female genitalia on intercourse; Translations: [Unspecified dyspareunia] 07-08-2025 Chronic Other female genital disorders (1 source) Vaginal discharge; Translations: [Other specified noninflammatory disorders of vagina] 06-02-2025 Episodic Other female genital disorders (2 sources) Vaginal hymen finding; Translations: [Other specified noninflammatory disorders of vagina] 06-02-2025 Episodic Other gastrointestinal disorders (1 source) Bariatric surgery status; Translations: [S/P laparoscopic sleeve gastrectomy] Onset: 07-15-2025 Episodic Other liver diseases (1 source) Steatosis of liver; Translations: [Fatty (change of) liver, not elsewhere classified] 01-21-2025 Chronic Other liver diseases (1 source) Fatty (change of) liver, not elsewhere classified; Translations: [Fatty liver] Onset: 01-21-2025 Chronic Other nervous system disorders (5 sources) Carpal tunnel syndrome; Translations: [Carpal tunnel syndrome, unspecified upper limb] Onset: 03-01-2023 03-01-2023 Chronic Other nervous system disorders (1 source) Other acute postprocedural pain; Translations: [Acute post-operative pain] Onset: 06-29-2025 Episodic Other nutritional; endocrine; and metabolic disorders (11 sources) Body mass index 30+ - obesity; Translations: [Obesity, unspecified] Onset: 08-02-2018 08-02-2018 Chronic Other nutritional; endocrine; and metabolic disorders (4 sources) Severe obesity; Translations: [Morbid (severe) obesity due to excess calories] 11-29-2023 Chronic Other nutritional; endocrine; and metabolic disorders (20 sources) Obese class II; Translations: [Obesity, unspecified] Onset: 01-07-2024 12-13-2023 Chronic Other nutritional; endocrine; and metabolic disorders (20 sources) Insulin resistance; Translations: [Insulin resistance] Onset: 08-02-2018 01-11-2024 Chronic Other nutritional; endocrine; and metabolic disorders (2 sources) Cholesterol level - finding; Translations: [Lipoprotein deficiency] 12-22-2024 Chronic Other nutritional; endocrine; and metabolic disorders (5 sources) Lipodystrophy; 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, not elsewhere classified] Onset: 11-05-2023 11-05-2023 Chronic Other nutritional; endocrine; and metabolic disorders (4 sources) Morbid obesity; Translations: [Morbid (severe) obesity due to excess calories] 01-08-2025 Chronic Other nutritional; endocrine; and metabolic disorders (2 sources) Morbid (severe) obesity due to excess calories; Translations: [Morbid obesity due to excess calories (HCC)] Onset: 01-21-2025 Chronic Other nutritional; endocrine; and metabolic disorders (1 source) Body mass index (BMI) 35.0-35.9, adult; Translations: [Class 2 obesity without serious comorbidity with body mass index (BMI) of 35.0 to 35.9 in adult, unspecified obesity type] Onset: 07-06-2025 Chronic Other nutritional; endocrine; and metabolic disorders (1 source) Body mass index (BMI) 37.0-37.9, adult; Translations: [Class 2 severe obesity with serious comorbidity and body mass index (BMI) of 37.0 to 37.9 in adult, unspecified obesity type (HCC)] Onset: 01-21-2025 Chronic Other nutritional; endocrine; and metabolic disorders (4 sources) Insulin resistance; Translations: [Insulin resistance] Onset: 08-02-2018 08-02-2018 Other and delivery including normal (5 sources) test positive; Translations: [Normal ] Onset: 01-12-2021 Resolved: 01-14-2021 01-14-2021 Episodic Other skin disorders (1 source) Skin tag; Translations: [Other hypertrophic disorders of the skin] 06-02-2025 Episodic Residual codes; unclassified (1 source) Gestation period, 15 weeks; Translations: [15 weeks gestation of ] Episodic Residual codes; unclassified (1 source) Gestation period, 25 weeks; Translations: [25 weeks gestation of ] Episodic Unclassified (2 sources) Hypertrophy of tonsils / J35.1(ICD-9) Onset: 06-24-2018 Unclassified (1 source) Chronic pharyngitis / J31.2(ICD-9) Onset: 06-24-2018 Unclassified (4 sources) 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 Onset: 06-17-2025 06-17-2025 Unclassified (4 sources) Autogenerated Problem Onset: 06-17-2025 06-17-2025 Unclassified (1 source) Obesity, Class I, BMI 30-34.9; Translations: [Obesity, Class I, BMI 30-34.9] Onset: 07-15-2025 Unclassified (1 source) Class 2 obesity without serious comorbidity with body mass index (BMI) of 35.0 to 35.9 in adult, unspecified obesity type; Translations: [Class 2 obesity without serious comorbidity with body mass index (BMI) of 35.0 to 35.9 in adult, unspecified obesity type] Onset: 07-06-2025 Unclassified (1 source) Obesity, Class II, BMI 35-39.9; Translations: [Obesity, Class II, BMI 35-39.9] Onset: 01-07-2024 Unclassified (1 source) Pre-Op Visit Onset: 06-23-2025 Unclassified (1 source) Class 2 severe obesity with serious comorbidity and body mass index (BMI) of 37.0 to 37.9 in adult, unspecified obesity type (HCC); Translations: [Class 2 severe obesity with serious comorbidity and body mass index (BMI) of 37.0 to 37.9 in adult, unspecified obesity type (HCC)] Onset: 01-21-2025 Past or Other Problems Problem Classification Problem Date Documented Da te Episodic/Chronic Diabetes mellitus without complication (2 sources) Prediabetes; Translations: [Prediabetes] Onset: 01-21-2025 01-21-2025 Episodic Diabetes or abnormal glucose tolerance complicating ; childbirth; or the puerperium (9 sources) Abnormal glucose complicating ; Translations: [Gestational diabetes mellitus] Onset: 02-27-2022 Episodic Genitourinary symptoms and ill-defined conditions (4 sources) Proteinuria; Translations: [Proteinuria affecting in third trimester] Onset: 03-14-2016 Resolved: 04-06-2016 04-06-2016 Episodic Other screening for suspected conditions (not mental disorders or infectious disease) (12 sources) Other specified abnormal findings of blood chemistry; Translations: [Other nonspecific findings on examination of blood] Onset: 09-27-2023 09-27-2023 Episodic Unclassified (2 sources) Patient encounter status 01-21-2025 Unclassified (1 source) ext (chief complaint) Onset: 05-08-2025 Results Test Name Value Interpretation Reference Range Facility [facility] 07-06-2025 CNOV Office Visit (BMINO) JANAY CRUZ ([id number]) 1995 F Date Time Provider Department 07/06/25 9:00 AM RANDA BOUDREAUX During your visit today, we recorded the following information about you: Temperature Pulse Blood pressure Weight 97.7 degrees 72/minute 109/78 93.6 kg Height 1.626 m Randa Boudreaux APRN.SERVICE STATION OPERATOR 07/06/2025 1:38 PM Signed Assessment BMI Surgical PostOp Clinic Note July 06, 2025 INTERVAL HISTORY: Janay Cruz is here for 7-10 day post op visit. Post-Op Sleeve Gastrectomy: - Janay Cruz is one week post-op from sleeve gastrectomy. - Concerns about suture discomfort. - Using [place] Breakfast Essentials shakes; until she noticed high carbohydrate content. - Previously experienced headaches and nausea with other protein shakes. - Inquires about low-carb shake options. - Taking omeprazole and senna daily. - Denies significant hunger. - c/o painful incision Pathology: FINAL DIAGNOSIS Portion of stomach, excision: - Segment of gastric body/fundus with no diagnostic abnormality. Index Surgery Date of Surgery: 06/29/2025 Surgeon: Janet Malcolm MD Surgical Procedure: LAPAROSCOPIC LONGITUDINAL GASTRECTOMY, GASTRIC RESTRICTIVE PROCEDURE Pre-surgical weight: 98 kg (216 lb 0.8 oz) Override Index Surgery Information? No Other Bariatric Surgeries None Visit: 7 days Today's Visit: Wt 93.6 kg (206 lb 5.6 oz) BMI 35.4 kg/m2 BMI 35.40 kg/(m2) Last Visit: Wt: 98 kg (216 lb 0.8 oz) BMI: 37.09 kg/(m2) Total weight loss: 4.4 kg (9 lb 11.2 oz) [place] weight: 66.1 kg (145 lb 10.6 oz) Excess weight: 31.9 kg (70 lb 6.2 oz) % of excess body weight lost: 4.4 kg (9 lb 11.2 oz) (13.78% of excess weight loss) Diet: phase 2 Sugar: Avoiding Dumping syndrome/symptoms: No Wound issues: Yes - R mid quadrant incision is painful, swollen. Abdominal pain: No Nausea or vomiting: No Reflux: No Gallbladder symptoms: No Hydration status: Doing well. Meeting fluid recommendations from RD? Pretty close to meeting 64 oz per day Do you feel dry/dark urine/progressive fatigue :No Have you had a bowel movement: Yes Symptoms of vitamin deficiency: No Taking PPI Yes If prescribed homegoing lovenox - are you taking your lovenox? N/A Activity: walking, low impact activity Current Outpatient Medications Medication Sig acetaminophen (TYLENOL) 325 mg cap Take 2 capsules by mouth as needed. omeprazole (PRILOSEC) 40 mg capsule Take 1 capsule by mouth once daily. ondansetron orally disintegrating (ZOFRAN ODT) 4 mg disintegrating tablet Take 1 tablet by mouth every 8 hours as needed for nausea/vomiting for up to 60 doses. (Patient not taking: Reported on 07/06/2025) senna-docusate (SENNA-S) 8.6-50 mg per tablet Take 1 tablet by mouth once daily. (Patient not taking: Reported on 07/06/2025) No current facility-administered medications for this visit. Patient Active Problem List High blood pressure Class 2 obesity with body mass index (BMI) of 37.0 to 37.9 in adult Anxiety disorder, unspecified Insulin resistance PCOS (polycystic ovarian syndrome) Resolved Hospital Problems No resolved problems to display. REVIEW OF SYSTEMS: See HPI PHYSICAL EXAM: BP 109/78 Pulse 72 Temp 36.5 ?C (97.7 ?F) (Oral) Ht 162.6 cm (5' 4.02 ) Wt 93.6 kg (206 lb 5.6 oz) LMP 05/29/2025 BMI 35.40 kg/m? AANDO, well appearing, pleasant, no distress Abdomen soft, no distention Incisions: mildly tender, R mid abdominal incision is tender. No erythema or drainage. Indented with some surrounding swelling. Impression: Janay Cruz is a 30 year old female with Class II obesity who presented today for their initial post op s/p LAPAROSCOPIC LONGITUDINAL GASTRECTOMY, GASTRIC RESTRICTIVE PROCEDURE 1. Encounter for surgical aftercare following surgery of digestive system (Z48.815) 2. 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 - Continue omeprazole daily - Continue senna daily to prevent constipation; may adjust or discontinue if stools become loose. - Continue Zofran as needed for nausea; refill available. - Apply ice packs to incisions as needed for incisional swelling and discomfort; may use Tylenol for pain. - Restrict physical activity for 3 more weeks: no lifting, pushing, or pulling >10-15 lbs; walking permitted; - Maintain current liquid diet for one more week, then transition to Phase 3, protein pureed diet at 2 weeks post-op; - Provided education on appropriate protein shakes and foods; - Continue B-complex for 3 months; start bariatric multivitamin at 2 weeks post-op or when available. - Provided list of recommended bariatric vitamins and supplements. 3. Class 2 obesity without serious comorbidity with body mass index (BMI) of 35.0 to (more content not included)... Normal [facility] Basic metabolic 2000 panelon 06-30-2025 Anion gap [Moles/Vol] 10 mmol/L Normal 8-15 [facility] Comment on above: Order Comment: Akira hussein Type: BLOOD SPECIMEN Ordering Facility: [facility] Address: [address] [place] [address] Performed By: #### 2 4321-2 #### [facility] CLIA [id number] [address] [place] [address] [place] Calcium [Mass/Vol] 8.4 mg/dL Low 8.5-10.2 [facility] Comment on above: Order Comment: Akira men Type: BLOOD SPECIMEN Ordering Facility: [facility] Address: [address] [place] [address] Performed By: #### 2 4321-2 #### [facility] CLIA [id number] [address] [place] [address] [place] Chloride [Moles/Vol] 106 mmol/L Normal 98-107 [facility] Comment on above: Order Comment: Speci men Type: BLOOD SPECIMEN Ordering Facility: [facility] Address: [address] [place] [address] Performed By: #### 2 4321-2 #### [facility] CLIA [id number] [address] [place] [address] [place] CO2 [Moles/Vol] 23 mmol/L Normal 22-30 [facility] Comment on above: Order Comment: Speci men Type: BLOOD SPECIMEN Ordering Facility: [facility] Address: [address] [place] [address] Performed By: #### 2 4321-2 #### [facility] CLIA [id number] [address] [place] [address] [place] Creatinine [Mass/Vol] 0.85 mg/dL Normal 0.58-0.96 [facility] Comment on above: Order Comment: Speci men Type: BLOOD SPECIMEN Ordering Facility: [facility] Address: [address] [place] [address] Performed By: #### 2 4321-2 #### [facility] CLIA [id number] [address] [place] [address] [place] eGFRcr SerPlBld CKD-EPI 2020 93 mL/min/1.73m??? Normal >=60 [facility] Comment on above: Order Comment: Speci men Type: BLOOD SPECIMEN Ordering Facility: [facility] Address: [address] [place] [address] Result Comment: Rosanne mated Glomerular Filtration Rate (eGFR) is calculated using the 2020 CKD-EPI creatinine equation. This equation utilizes serum creatinine, sex, and age as parameters. The creatinine assay has traceable calibration to isotope dilution-mass spectrometry. Refer to KDIGO guidelines for clinical interpretation. In patients with unstable renal function, e.g. those with acute kidney injury, the eGFR may not accurately reflect actual GFR. Performed By: #### 2 4321-2 #### [facility] CLIA [id number] [address] [place] [address] [place] Glucose [Mass/Vol] 90 mg/dL Normal 74-99 [facility] Comment on above: Order Comment: Akira men Type: BLOOD SPECIMEN Ordering Facility: [facility] Address: [address] [place] [address] Result Comment: The [place] Diabetes Association (ADA) provides guidance for cutoff [...] Standards of Medical Care in Diabetes 2016, [place] [employer]. Diabetes Care. 2016.39(Suppl 1). Performed By: #### 2 4321-2 #### [facility] CLIA [id number] [address] [place] [address] [place] Potassium [Moles/Vol] 3.7 mmol/L Normal 3.7-5.1 [facility] Comment on above: Order Comment: Akira hussein Type: BLOOD SPECIMEN Ordering Facility: [facility] Address: [address] [place] [address] Performed By: #### 2 4321-2 #### [facility] CLIA [id number] [address] [place] [address] [place] Sodium [Moles/Vol] 139 mmol/L Normal 136-144 [facility] Comment on above: Order Comment: Demetriusi men Type: BLOOD SPECIMEN Ordering Facility: [facility] Address: [address] [place] [address] Performed By: #### 2 4321-2 #### [facility] CLIA [id number] [address] [place] [address] [place] Urea nitrogen [Mass/Vol] 7 mg/dL Normal 7-21 [facility] Comment on above: Order Comment: Demetriusi men Type: BLOOD SPECIMEN Ordering Facility: [facility] Address: [address] [place] [address] Performed By: #### 2 4321-2 #### [facility] CLIA [id number] [address] [place] [address] [place] CBC panel Auto (Bld)on 06-30 Erythrocyte distribution width (RBC) [Ratio] 12.6 % Normal 11.5-15.0 [facility] Comment on above: Order Comment: Speci men Type: BLOOD SPECIMEN Ordering Facility: [facility] Address: [address] [place] [address] Performed By: #### 5 8410-2 #### [facility] CLIA [id number] [address] [place] [address] [place] Hematocrit (Bld) [Volume fraction] 36.7 % Normal 36.0-46.0 [facility] Comment on above: Order Comment: Speci men Type: BLOOD SPECIMEN Ordering Facility: [facility] Address: [address] [place] [address] Performed By: #### 5 8410-2 #### [facility] CLIA [id number] [address] [place] [address] [place] Hemoglobin (Bld) [Mass/Vol] 12.3 g/dL Normal 11.5-15.5 [facility] Comment on above: Order Comment: Speci men Type: BLOOD SPECIMEN Ordering Facility: [facility] Address: [address] [place] [address] Performed By: #### 5 8410-2 #### [facility] CLIA [id number] [address] [place] [address] [place] MCH (RBC) [Entitic mass] 28.5 pg Normal 26.0-34.0 [facility] Comment on above: Order Comment: Speci men Type: BLOOD SPECIMEN Ordering Facility: [facility] Address: [address] [place] [address] Performed By: #### 5 8410-2 #### [facility] CLIA [id number] [address] [place] [address] [place] MCHC (RBC) [Mass/Vol] 33.5 g/dL Normal 30.5-36.0 [facility] Comment on above: Order Comment: Speci men Type: BLOOD SPECIMEN Ordering Facility: [facility] Address: [address] [place] [address] Performed By: #### 5 8410-2 #### [facility] CLIA [id number] [address] [place] [address] [place] MCV (RBC) [Entitic vol] 85.0 fL Normal 80.0-100.0 [facility] Comment on above: Order Comment: Speci men Type: BLOOD SPECIMEN Ordering Facility: [facility] Address: [address] [place] [address] Performed By: #### 5 8410-2 #### [facility] CLIA [id number] [address] [place] [address] [place] Nucleated RBC (Bld) [#/Vol] 10*3/uL Normal <0.01 [facility] Comment on above: Order Comment: Speci men Type: BLOOD SPECIMEN Ordering Facility: [facility] Address: [address] [place] [address] Performed By: #### 5 8410-2 #### [facility] CLIA [id number] [address] [place] [address] [place] Platelet mean volume (Bld) [Entitic vol] 10.2 fL Normal 9.0-12.7 [facility] Comment on above: Order Comment: Speci men Type: BLOOD SPECIMEN Ordering Facility: [facility] Address: [address] [place] [address] Performed By: #### 5 8410-2 #### [facility] CLIA [id number] [address] [place] [address] [place] Platelets (Bld) [#/Vol] 237 10*3/uL Normal 150-400 [facility] Comment on above: Order Comment: Speci men Type: BLOOD SPECIMEN Ordering Facility: [facility] Address: [address] [place] [address] Performed By: #### 5 8410-2 #### [facility] CLIA [id number] [address] [place] [address] [place] RBC (Bld) [#/Vol] 4.32 10*6/uL Normal 3.90-5.20 [facility] Comment on above: Order Comment: Akira hussein Type: BLOOD SPECIMEN Ordering Facility: [facility] Address: [address] [place] [address] Performed By: #### 5 8410-2 #### [facility] CLIA [id number] [address] [place] [address] [place] WBC (Bld) [#/Vol] 11.61 10*3/uL High 3.70-11.00 [facility] Comment on above: Order Comment: Akira hussein Type: BLOOD SPECIMEN Ordering Facility: [facility] Address: [address] [place] [address] Performed By: #### 5 8410-2 #### [facility] CLIA [id number] OF [facility] CNDSon 06-30-2025 CNDS HNO ID: [id number] Author: JENNY AYERS APRN.SERVICE STATION OPERATOR Service: General Surgery Author Type: Nurse Practitioner Type: Discharge Summary Filed: 06/30/2025 11:05 Note Text: Attestation signed by Janet Malcolm MD at 06/30/2025 4:59 PM DISCHARGE SUMMARY PATIENT NAME: Janay Cruz ADMISSION DATE: 06/29/2025 DISCHARGE DATE: 06/30/2025 ATTENDING PHYSICIAN: Janet Malcolm MD Code Status: Not on file Highest Readmission Risk Score: 10 The 30 day readmissions risk score is derived from an internally validated risk model which evaluates patient level characteristics, utilization history, medication orders and lab results up until the day of discharge. Patients with a score of 39 or above are considered highest risk for readmission. Specific patient level drivers will be listed at the bottom of the summary. CONSULTING TEAMS DURING HOSPITALIZATION: None Treatment Team: Attending Provider: Janet Malcolm MD REASON FOR HOSPITALIZATION: scheduled bariatric surgery FINAL DIAGNOSIS: Exogenous Class 2 Obesity OPERATIONS DURING HOSPITALIZATION: LAPAROSCOPIC LONGITUDINAL GASTRECTOMY, GASTRIC RESTRICTIVE PROCEDURE PROCEDURES DURING HOSPITALIZATION: No procedures performed HOSPITAL COURSE: Patient underwent scheduled laparoscopic longitudinal gastrectomy on 06/[address] Janet Malcolm. She tolerated the procedure well without complications. After OR, patient was transferred to PACU for recovery. Pain was controlled and she was transferred to the regular nursing floor after she recovered. She was started on phase 1 bariatric diet that she tolerated well and she was advanced to phase 2 the next day. Patient progressed as expected and on the day of discharge, patient was tolerating the bariatric phase 2 diet, urinating independently, ambulating appropriately, having bowel function and pain controlled on PO pain medication. This patient was deemed medically stable for discharge. PATIENT CONDITION AT DISCHARGE: Stable DISCHARGE DISPOSITION: Home with Self Care Discharge Physical Exam: VITAL SIGNS: BP 140/82 Pulse (!) 45 Temp 36.9 ?C (98.4 ?F) (Oral) Resp 14 LMP 05/29/2025 SpO2 98% GENERAL: Alert, no distress, cooperative LUNGS: Lungs clear to auscultation, no increased work of breathing on RA CARDIAC: regulkal ABDOMEN: Abdomen soft, non-tender, BS normal, No masses or organomegaly NEURO: Gait normal. Reflexes normal and symmetric. Sensation grossly intact, Cranial nerves II-XII intact INFORMATION PROVIDED TO PATIENT: WOUND/SURGICAL SITE CARE: - Keep the surgical site clean and dry. - You may shower tomorrow. Use soap and warm water. Allow the water to run over the incisions. Gently pat the area dry. Do not rub the area. - Do not submerge the surgical site in water for 1-2 weeks. (No bathtubs or swimming). - Your incision is closed with suture that will dissolve on their own. - Your incision is closed with Steri-Strips (small adhesive strips) applied across the wound which will fall off on their own. - You may have mild itching, bruising, a pulling sensation, and/or numbness around the incisions. These are all normal. - Watch for any signs of excessive bleeding or infection including increased swelling, pain, redness, thick drainage, or fever. If you notice any of these symptoms, please call and speak with a doctor or nurse. DIET: Phase II Post Op Diet - This is a sugar-free, liquid, high protein diet that you are discharged on after surgery. - Duration: You will continue on this diet for 2 weeks after surgery to ensure proper tolerance and healing. On this diet you will focus on protein and hydration: Protein shakes and clear liquids only: Consume NO Solid Foods at this time. The goal for this diet is at least 60 grams of protein and 64 ounces of fluids, per day. General Suggested Guidelines for Phase II diet: - Choose a High Protein Shake that contains at least 20 grams of protein and contains less than 5 grams of sugar, per serving - The source of protein should preferably be whey protein; however, shakes may be soy or egg based, or a combination of whey, soy, or egg. - You may use skim or 1% milk or water to mix the protein shake, if powder based. - You may use lactose - free milk if lactose intolerant. - Do not use milk as a substitute for protein shakes since it does not provide enough protein, per serving. - Due to possible sensory changes in taste and smell, choose a variety of flavors or non-flavored protein shakes; always check tolerance. - Drink slowly until you feel full. Room temperature fluids may be better tolerated - NO STRAWS - Avoid soda/pop, caffeine, and sugar - Refer to Your Guide to Surgery Hydration: - Fluid intake of 64 oz everyday (Recomme (more content not included)... Normal [facility] ANES POSTPROC EVALon 025 ANES POSTPROC EVAL HNO ID: [id number] Author: JOLENE MURILLO MD Service: Anesthesiology Author Type: Anesthesiologist Type: Anesthesia Postprocedure Evaluation Filed: 06/29/2025 12:20 Note Text: POST ANESTHESIA EVALUATION NOTE : 1995 Procedure Summary Date: 06/29/25 Room / Location: [place] [address] / OR Anesthesia Start: 744 Anesthesia Stop: 944 Procedure: LAPAROSCOPIC LONGITUDINAL GASTRECTOMY, GASTRIC RESTRICTIVE PROCEDURE (Abdomen) Diagnosis: Morbid obesity due to excess calories (HCC) (Morbid obesity due to excess calories (HCC) [E66.01]) Surgeons: Janet Malcolm MD Responsible Provider: Jolene Murillo I, MD Anesthesia Type: general ASA Status: 2 Anesthesia Type: general Airway Type: ETT Last Vitals Vitals Value Taken Time BP 119/61 06/29/25 12:00 Temp 36.1 ?C (97 ?F) 06/29/25 09:43 Pulse 67 06/29/25 12:19 Resp 18 06/29/25 12:19 SpO2 94 % 06/29/25 12:19 Vitals shown include unfiled device data. Post Anesthesia Patient Status Patient Evaluation: PACU. PACU/ICU Patient Condition: stable. Anticipated Disposition: inpatient floor planned admission. Neurological Status: aware and responsive. Pulmonary Status: breathing comfortably on supplemental oxygen Airway Control: returned to baseline unsupported. Cardiovascular Status: stable. Pain Management: clinically adequate Postoperative Hydration: acceptable. Intraoperative Events: no significant anesthesia events Post Operative Nausea/Vomiting Status: no significant post operative nausea or vomiting Recommendation: continue current plan of care. Anesthesia Observations No Documentation SIGNATURE: Jolene Murillo MD PATIENT NAME: Janay Cruz DATE: June 29, 2025 TIME: 12:20 PM CSN: [id number] [facility] ANES PRE-OPon 06-29-2025 ANES PRE-OP HNO ID: [id number] Author: JOLENE MURILLO MD Service: Anesthesiology Author Type: Anesthesiologist Type: Anesthesia Preprocedure Evaluation Filed: 06/29/2025 07:12 Note Text: ANESTHESIOLOGY DAY OF SURGERY NOTE : 1995 Procedure Information Date/Time: 06/29/25729 Procedure: LAPAROSCOPIC LONGITUDINAL GASTRECTOMY, GASTRIC RESTRICTIVE PROCEDURE (Abdomen) Location: [place] [address] / OR Surgeons: Janet Malcolm MD Estimated body mass index is 37.09 kg/m? as calculated from the following: Height as of 06/26/25: 162.6 cm (5' 4 ). Weight as of 06/26/25: 98 kg (216 lb 0.8 oz). Most recent hematocrit and potassium results: Hematocrit 45.7 06/26/2025 Potassium 4.4 06/26/2025 Relevant Problems CARDIO (+) High blood pressure I - PHYSICAL EVALUATION AIRWAY Patient intubated: No. Tracheostomy tube not present Mallampati: III. TM distance: >3 FB. Neck ROM: full ROM without neurological symptoms. Mouth openin FB. Short neck: no. Thick neck: yes DENTAL Dental findings: teeth intact. II - ANESTHESIA PLAN ASA Score: 2 Anesthetic Plan: general Airway type: ETT NPO Status: adequate Monitoring Plan Monitoring plan: standard ASA. Post Procedure Analgesic Plan Postoperative analgesic plan: parenteral or oral opioids. Informed Consent Anesthetic risks, benefits, alternatives, personnel and consent discussed: yes. Patient / Responsible Democrat agrees to proceed: yes Patient / Surrogate agrees to blood products: blood products not planned DNR status not reviewed with patient and/or family prior to surgery. Significant changes in the patient condition since the History and Physical, not otherwise documented in primary service progress note: no. No vitals data found for the desired time range. Facility-Administered Medications as of 06/29/2025 Medication Dose Route Frequency - lidocaine (PF) 10 mg/mL (1 %) 1-2 mg injection (XYLOCAINE) 0.1-0.2 mL INTRADERMAL PRN - lactated ringers iv infusion 5-30 mL/hr INTRAVENOUS CONTINUOUS - NaCl 0.9% iv flush bag 20 mL INTRAVENOUS PRN - heparin 5,000 Units injection 5,000 Units SUBCUTANEOUS ONCE - ceFAZolin iv piggyback 2 g in D5W (iso-osmotic) 100 mL (ANCEF) 2 g INTRAVENOUS Pre-Op Once Outpatient Medications as of 06/29/2025 Medication Sig - spironolactone (ALDACTONE) 50 mg tablet Take 50 mg by mouth every morning. (Patient not taking: Reported on 01/21/2025) I have interviewed and examined the patient. I have reviewed the medical record and/or the pre-anesthesia evaluation, pertinent labs, and test results. This contains updated information obtained within 48 hours of Surgery/Procedure. SIGNATURE: Jolene Murillo MD PATIENT NAME: Janay Cruz DATE: June 29, 2025 TIME: 7:12 AM CSN: [id number] [facility] BRIEF OP NOTon 06-29-2025 BRIEF OP NOT HNO ID: [id number] Author: ANGY KINCAID MD Service: General Surgery Author Type: Resident Type: Brief Op Note Filed: 06/29/2025 09:40 Note Text: GENERAL SURGERY BRIEF OP NOTE LOG ID: [id number] Surgery/Procedure Date: 06/29/2025 Incision/Procedure Start Time: 8:13 AM Incision Close/Procedure End Time: 9:33 AM Surgeon(s) and Coal Shooter(s): Surgeons and Role: * Janet Malcolm MD - Primary * Angy Kincaid MD - Resident - Assisting No Additional Staff Procedure(s): Procedure(s): LAPAROSCOPIC LONGITUDINAL GASTRECTOMY, GASTRIC RESTRICTIVE PROCEDURE Anesthesia: General Findings: Sleeve gastrectomy staple line with negative leak test during EGD insufflation, please see operative report for full details Tubes/Drains: NOne Estimated Blood Loss: 20 cc Specimens: ID Type Source Tests Collected by Time Destination 1 : with confirmatory Blood Blood TYPE + SCREEN Janet Malcolm MD 06/29/2025 7:51 AM 2 : Blood Blood CONFIRM BLOOD TYPE Janet Malcolm MD 06/29/2025 8:06 AM A : Sleeve Gastrectomy Tissue Stomach, Resection SURGICAL PATHOLOGY Jante Malcolm MD 06/29/2025 9:02 AM Implant: * No implants in log * Wound Classification: Class 2, operative wound clean-contaminated, gastrointestinal/biliary tract entered without significant spillage Complications: None Pre-Op/Pre-Procedure Diagnosis: Pre-Op Diagnosis Codes: * Morbid obesity due to excess calories (HCC) [E66.01] Post-Op/Post-Procedure Diagnosis: Same SIGNATURE: Angy Kincaid MD PATIENT NAME: Janay Cruz DATE: June 29, 2025 TIME: 9:39 AM PAGER/CONTACT #: [phone] [facility] CONFIRM BLOOD TYPEon 025 ABO O [facility] Comment on above: Order Comment: Speci men Type: BLOOD SPECIMEN Ordering Facility: [facility] Address: [address] [place] [address] Performed By: #### C ONABO #### [facility] CLIA [id number] [address] [place] [address] [place] Rh Nom (Bld) Positive [facility] Comment on above: Order Comment: Speci men Type: BLOOD SPECIMEN Ordering Facility: [facility] Address: [address] [place] [address] Performed By: #### C ONABO #### [facility] CLIA [id number] [address] [place] [address] [place] OPERATIVE NOon 06-29-2025 OPERATIVE NO HNO ID: [id number] Author: JANET MALCOLM MD Service: General Surgery Author Type: Physician Type: Operative Report Filed: 06/29/2025 12:58 Note Text: [facility] - Operative Report JANAY CRUZ : 1995 AGE: 30. SEX: F PATIENT TYPE: I HOSP SVC: Surgical LOCATION: [facility] ATTENDING PHYSICIAN: JANET MALCOLM CSN NUMBER: [id number] DATE OF SURGERY/PROCEDURE: 06/29/2025 INCISION/PROCEDURE START TIME: 8:13 AM INCISION CLOSE/PROCEDURE END TIME: 9:33 AM PREOPERATIVE DIAGNOSIS: 1. Morbid obesity, 37. 2. Polycystic ovary syndrome. 3. Hypertension. POSTOPERATIVE DIAGNOSIS: 1. Morbid obesity, 37. 2. Polycystic ovary syndrome. 3. Hypertension. SURGEON: Janet Malcolm MD PERL SOFTWARE ENGINEER: Angy Kincaid MD. SURGERY/PROCEDURE: 1. Laparoscopic sleeve gastrectomy. 2. Intraoperative esophagogastroduodenoscopy and provoked leak test. 3. Bilateral TAP block using bupivacaine. ANESTHESIA: General endotracheal anesthesia. COMPLICATIONS: None. ESTIMATED BLOOD LOSS: Less than 20 mL. SPECIMENS: Sleeve gastrectomy specimen. WOUND CLASS: 2. INDICATIONS: Patient is a pleasant female with multiple medical comorbidities and morbid obesity, who desired to undergo sleeve gastrectomy. Risks, benefits, and alternatives were explained in the clinic and patient was scheduled for surgery. OPERATIVE FINDINGS: 1. An uncomplicated sleeve gastrectomy was performed. 2. A 40-Zimbabwean bougie was used to size the sleeve. 3. A provoked leak test at the end of the operation was negative for any leaks, bleeds, kinks, acute angulations, or other complications. DESCRIPTION OF PROCEDURE: The patient was identified and brought to the operating room and placed supine on the operating table. General anesthesia was induced. The abdomen was prepped and draped in standard surgical fashion. A stab incision was made in the left upper quadrant and Optiview technique was used to gain entry into the abdomen under direct vision. Multiple additional ports were placed. A 5 mm port was placed in the left supraumbilical region, a 12 and a 5 mm port was placed in the right side. A 5 mm epigastric incision was made. The [place] retractor was placed. The patient was placed in steep head-up position. The gastrocolic omentum was transected. This dissection was taken all the way to the GE junction. The GE junction fat pad was noted to be below the hiatus. There was no evidence of any hiatal hernia after the left shakira was dissected. A 40-Zimbabwean bougie was introduced into the stomach. Initial firing was with an [place] 3000 blue load. Subsequent multiple firings with an [place] 4000 blue load using the 40-Zimbabwean bougie as a Sizer was performed to completely transect the stomach. The final firing was with an [place] 3000 white load. The specimen was retrieved through the 12 mm port site. The operative bed was inspected. No evidence of any bleeding or other complications noted. The port site was closed with Vicryl. Fascia was sutured using Vicryl. The pylorus was clamped. The gastroscope was introduced into the stomach. A provoked leak test was performed. No evidence of leak, bleeds, kinks, acute angulations, or complications noted. The scope was removed. Bilateral TAP block was performed using bupivacaine. A Tisseel was used to spray the entire staple line. The abdomen was inspected. No evidence of bleeding or complications noted. Sponge, needle, and instrument counts were correct. All the ports were removed under direct vision. The fascia was closed using the pre-placed sutures. Skin was closed with Monocryl and SureClose. The patient tolerated the procedure well without complications. I was present and scrubbed in throughout the operation. Janet Malcolm MD TA:[id number] /[id number] [facility] Pathology biopsy report Dany (Tiss)on 06-29-2025 AP DISCLAIMER [facility] Comment on above: Order Comment: Speci men Type: TISSUE SPECIMEN Ordering Facility: [facility] Address: [address] [place] [address] Result Comment: Radha Pena Test (LDT) Disclaimer: Performance characteristics of immunohistochemical, immunofluorescent, and chromogenic in-situ hybridization tests have been determined by the performing laboratory within the [facility] Department of Pathology and Laboratory Medicine ([facility]), [facility], [facility], [facility], [facility], [facility], or [facility]) in a manner consistent with CLIA requirements. One or more of these tests may not have been cleared or approved by the FDA. The [facility] Department of Pathology and Laboratory Medicine is regulated under CLIA as qualified to perform high-complexity testing. These tests are used for clinical purposes. These should not be regarded as investigational or for research. Positive and negative controls stain appropriately. Performed By: #### 6 6121-5 #### [facility] CLIA [id number] [address] [place] [address] LABORATORY CLIA [id number] [address] [place] [address] CASE REPORT Normal [facility] Comment on above: Order Comment: Speci men Type: TISSUE SPECIMEN Ordering Facility: [facility] Address: [address] [place] [address] Result Comment: Surg [facility] Pathology Report Case: [id number] Authorizing Provider: Janet Malcolm MD Collected: 06/29/2025 09:02 AM Ordering Location: [facility] Received: 06/29/2025 09:48 AM Operating Room Pathologist: Refugio Ritter MD Specimen: Stomach, Resection, Sleeve Gastrectomy Performed By: #### 6 6121-5 #### [facility] CLIA [id number] [address] [place] [address] LABORATORY CLIA [id number] [address] [place] [address] CLINICAL HISTORY Normal [facility] Comment on above: Order Comment: Speci men Type: TISSUE SPECIMEN Ordering Facility: [facility] Address: [address] [place] [address] Result Comment: Pre- op diagnosis: Morbid obesity due to excess calories (HCC) [E66.01] Performed By: #### 6 6121-5 #### [facility] CLIA [id number] [address] [place] [address] LABORATORY CLIA [id number] [address] [place] [address] FINAL DIAGNOSIS Normal [facility] Comment on above: Order Comment: Speci men Type: TISSUE SPECIMEN Ordering Facility: [facility] Address: [address] [place] [address] Result Comment: Port ion of stomach, excision: - Segment of gastric body/fundus with no diagnostic abnormality. JEL 07/01/2025 at 1728 EDT Performed By: #### 6 6121-5 #### [facility] CLIA [id number] [address] [place] [address] LABORATORY CLIA [id number] [address] [place] [address] FINAL PERFORMING LAB Normal [facility] Comment on above: Order Comment: Speci men Type: TISSUE SPECIMEN Ordering Facility: [facility] Address: [address] [place] [address] Result Comment: Diag nostic interpretation performed at: [facility], [address] [place] [address] CLIA# [id number] Machinist Helper Marine: Refugio Ritter MD Performed By: #### 6 6121-5 #### [facility] CLIA [id number] [address] [place] [address] LABORATORY CLIA [id number] [address] [place] [address] GROSS DESCRIPTION Normal [facility] Comment on above: Order Comment: Speci men Type: TISSUE SPECIMEN Ordering Facility: [facility] Address: [address] [place] [address] Result Comment: Denis rosenthal, Resection Received fresh designated sleeve gastrectomy is a portion of stomach that measures 17 x 4 x 2.2 cm. The serosal surface is pink-pedersen and slightly ragged. The stomach is opened along the staple line to reveal pink-pedersen gastric mucosa, showing normal rugal folds, with a wall thickness of 0.8 cm. Acquisitions Assistant sections are submitted in one cassette. WE June 29, 2025 11:31 AM Gross examination performed at [facility], [address] [place] [address] Performed By: #### 6 6121-5 #### [facility] CLIA [id number] [address] [place] [address] LABORATORY CLIA [id number] [address] [place] [address] [place] TYPE + SCREENon 06-29-2025 ABO O Normal [facility] Comment on above: Order Comment: Speci men Type: BLOOD SPECIMEN Ordering Facility: [facility] Address: [address] [place] [address] Performed By: #### T SCR #### [facility] CLIA [id number] [address] [place] [address] [place] Rh Nom (Bld) Positive Normal [facility] Comment on above: Order Comment: Speci men Type: BLOOD SPECIMEN Ordering Facility: [facility] Address: [address] [place] [address] Performed By: #### T SCR #### [facility] CLIA [id number] [address] [place] [address] [place] TYPE AND SCREEN EXPIRATION 07/02/2025 23:59 Normal [facility] Comment on above: Order Comment: Speci men Type: BLOOD SPECIMEN Ordering Facility: [facility] Address: [address] [place] [address] Performed By: #### T SCR #### [facility] CLIA [id number] [address] [place] [address] [place] CBC W Auto Differential pane l (Bld)on 06-26-2025 Basophils (Bld) [#/Vol] 0.06 10*3/uL Normal <0.11 [facility] Comment on above: Order Comment: Speci men Type: BLOOD SPECIMENOrdering Facility: [facility] Address: [address] [place] [address] Performed By: #### 5 7021-8 ####[facility]IA [id number] [address], [place] [address] [place] Basophils/100 WBC (Bld) 0.7 % Normal [facility] Comment on above: Order Comment: Speci men Type: BLOOD SPECIMENOrdering Facility: [facility] Address: [address] [place] [address] Performed By: #### 5 7021-8 ####[facility]IA [id number] [address], [place] [address] [place] Differential cell count method Nom (Bld) Auto Normal [facility] Comment on above: Order Comment: Speci men Type: BLOOD SPECIMENOrdering Facility: [facility] Address: [address] [place] [address] Performed By: #### 5 7021-8 ####[facility]CLIA [id number] [address], [place] [address] [place] Eosinophils (Bld) [#/Vol] 0.25 10*3/uL Normal <0.46 [facility] Comment on above: Order Comment: Speci men Type: BLOOD SPECIMENOrdering Facility: [facility] Address: [address] [place] [address] Performed By: #### 5 7021-8 ####[facility] [id number] [place] [id number] [place] Eosinophils/100 WBC (Bld) 2.9 % Normal [facility] Comment on above: Order Comment: Speci men Type: BLOOD SPECIMENOrdering Facility: [facility] Address: [address] [place] [address] Performed By: #### 5 7021-8 ####[facility]CLIA [id number] [address] [place] [address] [place] Erythrocyte distribution width (RBC) [Ratio] 12.8 % Normal 11.5-15.0 [facility] Comment on above: Order Comment: Speci men Type: BLOOD SPECIMENOrdering Facility: [facility] Address: [address] [place] [address] Performed By: #### 5 7021-8 ####[facility]CLIA [id number] [place] [address] [place] Hematocrit (Bld) [Volume fraction] 45.7 % Normal 36.0-46.0 [facility] Comment on above: Order Comment: Speci men Type: BLOOD SPECIMENOrdering Facility: [facility] Address: [address] [place] [address] Performed By: #### 5 7021-8 ####[facility]IA [id number] [place] [address] [place] Hemoglobin (Bld) [Mass/Vol] 14.9 g/dL Normal 11.5-15.5 [facility] Comment on above: Order Comment: Speci men Type: BLOOD SPECIMENOrdering Facility: [facility] Address: [address] [place] [address] Performed By: #### 5 7021-8 ####[facility]IA [id number] [place] [address] [place] Immature granulocytes (Bld) [#/Vol] 10*3/uL Normal <0.10 [facility] Comment on above: Order Comment: Speci men Type: BLOOD SPECIMENOrdering Facility: [facility] Address: [address] [place] [address] Performed By: #### 5 7021-8 ####[facility]IA [id number] [place] [address] [place] Immature granulocytes/100 WBC (Bld) 0.2 % Normal [facility] Comment on above: Order Comment: Speci men Type: BLOOD SPECIMENOrdering Facility: [facility] Address: [address] [place] [address] Performed By: #### 5 7021-8 ####[facility] LABCLIA [id number] [place] [address] [place] Lymphocytes (Bld) [#/Vol] 2.58 10*3/uL Normal 1.00-4.00 [facility] Comment on above: Order Comment: Speci men Type: BLOOD SPECIMENOrdering Facility: [facility] Address: [address] [place] [address] Performed By: #### 5 7021-8 ####[facility]CLIA [id number] [place] [address] [place] Lymphocytes/100 WBC (Bld) 29.8 % Normal [facility] Comment on above: Order Comment: Speci men Type: BLOOD SPECIMENOrdering Facility: [facility] Address: [address] [place] [address] Performed By: #### 5 7021-8 ####[facility] LABCLIA [id number] [place] [address] [place] MCH (RBC) [Entitic mass] 28.5 pg Normal 26.0-34.0 [facility] Comment on above: Order Comment: Speci men Type: BLOOD SPECIMENOrdering Facility: [facility] Address: [address] [place] [address] Performed By: #### 5 7021-8 ####[facility]CLIA [id number] [place] [id number] [place] MCHC (RBC) [Mass/Vol] 32.6 g/dL Normal 30.5-36.0 [facility] Comment on above: Order Comment: Speci men Type: BLOOD SPECIMENOrdering Facility: [facility] Address: [address] [place] [address] Performed By: #### 5 7021-8 ####[facility] LABCLIA [id number] [place] [id number] [place] MCV (RBC) [Entitic vol] 87.5 fL Normal 80.0-100.0 [facility] Comment on above: Order Comment: Speci men Type: BLOOD SPECIMENOrdering Facility: [facility] Address: [address] [place] [address] Performed By: #### 5 7021-8 ####[facility] LABCLIA [id number] [place] [address] [place] Monocytes (Bld) [#/Vol] 0.55 10*3/uL Normal <0.87 [facility] Comment on above: Order Comment: Speci men Type: BLOOD SPECIMENOrdering Facility: [facility] Address: [address] [place] [address] Performed By: #### 5 7021-8 ####[facility] LABCLIA [id number] [place] [address] [place] Monocytes/100 WBC (Bld) 6.3 % Normal [facility] Comment on above: Order Comment: Speci men Type: BLOOD SPECIMENOrdering Facility: [facility] Address: [address] [place] [address] Performed By: #### 5 7021-8 ####[facility]CLIA [id number] [place] [address] [place] Neutrophils (Bld) [#/Vol] 5.21 10*3/uL Normal 1.45-7.50 [facility] Comment on above: Order Comment: Speci men Type: BLOOD SPECIMENOrdering Facility: [facility] Address: [address] [place] [address] Performed By: #### 5 7021-8 ####[facility]CLIA [id number] [place] [address] [place] Neutrophils/100 WBC (Bld) 60.1 % Normal [facility] Comment on above: Order Comment: Speci men Type: BLOOD SPECIMENOrdering Facility: [facility] Address: [address] [place] [address] Performed By: #### 5 7021-8 ####[facility]CLIA [id number] [place] [address] [place] Nucleated RBC (Bld) [#/Vol] 10*3/uL Normal <0.01 [facility] Comment on above: Order Comment: Speci men Type: BLOOD SPECIMENOrdering Facility: [facility] Address: [address] [place] [address] Performed By: #### 5 7021-8 ####[facility]CLIA [id number] [place] [address] [place] Nucleated RBC/100 WBC (Bld) [Ratio] 0.0 /100 WBC Normal [facility] Comment on above: Order Comment: Speci men Type: BLOOD SPECIMENOrdering Facility: [facility] Address: [address] [place] [address] Performed By: #### 5 7021-8 ####[facility]IA [id number] [place] [address] [place] Platelet mean volume (Bld) [Entitic vol] 10.7 fL Normal 9.0-12.7 [facility] Comment on above: Order Comment: Speci men Type: BLOOD SPECIMENOrdering Facility: [facility] Address: [address] [place] [address] Performed By: #### 5 7021-8 ####[facility] LABCLIA [id number] [place] [id number] [place] Platelets (Bld) [#/Vol] 296 10*3/uL Normal 150-400 [facility] Comment on above: Order Comment: Speci men Type: BLOOD SPECIMENOrdering Facility: [facility] Address: [address] [place] [address] Performed By: #### 5 7021-8 ####[facility] LABCLIA [id number] [place] [address] [place] RBC (Bld) [#/Vol] 5.22 10*6/uL High 3.90-5.20 [facility] Comment on above: Order Comment: Speci men Type: BLOOD SPECIMENOrdering Facility: [facility] Address: [address] [place] [address] Performed By: #### 5 7021-8 ####[facility] [id number] [place] [address] [place] WBC (Bld) [#/Vol] 8.67 10*3/uL Normal 3.70-11.00 [facility] Comment on above: Order Comment: Speci men Type: BLOOD SPECIMENOrdering Facility: [facility] Address: [address] [place] [address] Performed By: #### 5 7021-8 ####[facility] [id number] [place] [address] [place] Comprehensive metabolic 2000 panelon 06-26-2025 Albumin [Mass/Vol] 4.7 g/dL Normal 3.9-4.9 [facility] Comment on above: Order Comment: Speci men Type: BLOOD SPECIMENOrdering Facility: [facility] Address: [address] [place] [address] Performed By: #### 2 4323-8 ####[facility]IA [id number] [place] [address] [place] ALP [Catalytic activity/Vol] 78 U/L Normal 34-123 [facility] Comment on above: Order Comment: Speci men Type: BLOOD SPECIMENOrdering Facility: [facility] Address: [address] [place] [address] Performed By: #### 2 4323-8 ####[facility]IA [id number] [place] [id number] [place] ALT [Catalytic activity/Vol] 143 U/L High 7-38 [facility] Comment on above: Order Comment: Speci men Type: BLOOD SPECIMENOrdering Facility: [facility] Address: [address] [place], [place] [address] Performed By: #### 2 4323-8 ####[facility]CLIA [id number] [facility] [address] [place] [address] [place] Anion gap [Moles/Vol] 14 mmol/L Normal 8-15 [facility] Comment on above: Order Comment: Speci men Type: BLOOD SPECIMENOrdering Facility: [facility] Address: [address] [place] [address] Performed By: #### 2 4323-8 ####[facility]CLIA [id number] [facility] [address], [facility] [place] AST [Catalytic activity/Vol] 72 U/L High 13-35 [facility] Comment on above: Order Comment: Speci men Type: BLOOD SPECIMENOrdering Facility: [facility] Address: [address] [place] [address] Performed By: #### 2 4323-8 ####[facility]CLIA [id number] [address] [place] [address] [place] Bilirubin [Mass/Vol] 1.5 mg/dL High 0.2-1.3 [facility] Comment on above: Order Comment: Speci men Type: BLOOD SPECIMENOrdering Facility: [facility] Address: [address] [place] [address] Performed By: #### 2 4323-8 ####[facility] LABCLIA [id number] [address] [address] [place] Calcium [Mass/Vol] 9.7 mg/dL Normal 8.5-10.2 [facility] Comment on above: Order Comment: Speci men Type: BLOOD SPECIMENOrdering Facility: [facility] Address: [address] [place] [address] Performed By: #### 2 4323-8 ####[facility]CLIA [id number] [address] [address] [place] Chloride [Moles/Vol] 100 mmol/L Normal 98-107 [facility] Comment on above: Order Comment: Speci men Type: BLOOD SPECIMENOrdering Facility: [facility] Address: [address] [place] [address] Performed By: #### 2 4323-8 ####[facility]IA [id number] [place] [id number] [place] CO2 [Moles/Vol] 23 mmol/L Normal 22-30 [facility] Comment on above: Order Comment: Speci men Type: BLOOD SPECIMENOrdering Facility: [facility] Address: [address] [place] [address] Performed By: #### 2 4323-8 ####[facility]IA [id number] [place] [address] [place] Creatinine [Mass/Vol] 0.82 mg/dL Normal 0.58-0.96 [facility] Comment on above: Order Comment: Speci men Type: BLOOD SPECIMENOrdering Facility: [facility] Address: [address] [place] [address] Performed By: #### 2 4323-8 ####[facility]IA [id number] [place] [address] [place] eGFRcr SerPlBld CKD-EPI 2020 98 mL/min/1.73m??? Normal >=60 [facility] Comment on above: Order Comment: Speci men Type: BLOOD SPECIMENOrdering Facility: [facility] Address: [address] [place] [address] Result Comment: Rosanne mated Glomerular Filtration Rate (eGFR) is calculated using the 2020 CKD-EPI creatinine equation. This equation utilizes serum creatinine, sex, and age as parameters. The creatinine assay has traceable calibration to isotope dilution-mass spectrometry. Refer to KDIGO guidelines for clinical interpretation. In patients with unstable renal function, e.g. those with acute kidney injury, the eGFR may not accurately reflect actual GFR. Performed By: #### 2 4323-8 ####[facility]IA [id number] [place] [id number] [place] Glucose [Mass/Vol] 73 mg/dL Low 74-99 [facility] Comment on above: Order Comment: Akira hussein Type: BLOOD SPECIMENOrdering Facility: [facility] Address: [address] [place] [address] Result Comment: The [place] Diabetes Association (ADA) provides guidance for cutoff [...] Standards of Medical Care in Diabetes 2016, [place] [employer]. Diabetes Care. 2016.39(Suppl 1). Performed By: #### 2 4323-8 ####[facility]IA [id number] [place] [id number] [place] Potassium [Moles/Vol] 4.4 mmol/L Normal 3.7-5.1 [facility] Comment on above: Order Comment: Akira hussein Type: BLOOD SPECIMENOrdering Facility: [facility] Address: [address] [place] [address] Performed By: #### 2 4323-8 ####[facility]IA [id number] [place] [id number] [place] Protein [Mass/Vol] 7.6 g/dL Normal 6.3-8.0 [facility] Comment on above: Order Comment: Akira hussein Type: BLOOD SPECIMENOrdering Facility: [facility] Address: [address] [place] [address] Performed By: #### 2 4323-8 ####[facility] LABCLIA [id number] [place] [id number] [place] Sodium [Moles/Vol] 137 mmol/L Normal 136-144 [facility] Comment on above: Order Comment: Speci men Type: BLOOD SPECIMENOrdering Facility: [facility] Address: [address] [place] [address] Performed By: #### 2 4323-8 ####[facility]IA [id number] [address] [place] Urea nitrogen [Mass/Vol] 14 mg/dL Normal 7-21 [facility] Comment on above: Order Comment: Speci men Type: BLOOD SPECIMENOrdering Facility: [facility] Address: [address] [place] [address] Performed By: #### 2 4323-8 ####[facility]IA [id number] [place] [id number] [place] HISTORY PHYSICALon HISTORY PHYSICAL HNO ID: [id number] Author: LOTUS CALLES APRN.SERVICE STATION OPERATOR Service: ? Author Type: Nurse Practitioner Type: H&P Filed: 06/29/2025 07:02 Note Text: HISTORY AND PHYSICAL EXAMINATION SERVICE DATE: 06/26/2025 SERVICE TIME: 1:57 PM PRIMARY CARE PHYSICIAN: No primary care provider on file. REASON FOR VISIT: Janay Cruz is a 30 year old female who is scheduled for LAPAROSCOPIC LONGITUDINAL GASTRECTOMY, GASTRIC RESTRICTIVE PROCEDURE at the request of Dr. Janet Malcolm for consultation. My final recommendation will be communicated back to the requesting physician by way of shared medical record or letter. Assessment High blood pressure Assessment: stable, asymptomatic Last 5 Encounter BP Readings: Date: BP: 06/26/2025 109/73 06/23/2025 146/79 01/21/2025 145/78 11/29/2023 144/68 PCOS (polycystic ovarian syndrome) Assessment: stable, not currently on medication Anxiety disorder, unspecified Assessment: denies panic in hospital setting Obesity, Class II, BMI 35-39.9 Assessment: Body mass index is 37.09 kg/m?. ANESTHESIA FINDINGS: Intubation History: No history of difficult intubation Significant Anesthesia Considerations: none Airway History: No history of difficult airway Stanley Activity Status Index: METS: Walk indoors, such as around the house (1.75 METs) Do light work around the house, such as dusting or washing dishes (2.70 METs) Take care of self; that is eating, dressing, bathing, using the toilet (2.75 METs) Walk a block or two on level ground (2.75 METs) Do moderate work around the house, such as vacuuming, sweeping floors, or carrying in groceries (3.50 METs) Do yardwork, such as raking leaves, weeding, or pushing a power mower (4.50 METs) Climb a flight of stairs or walk up a hill (5.50 METs) Participate in moderate recreational activites, such as golf, bowling, dancing, doubles tennis, or throwing a baseball or football (6.00 METs) DASI Score: 29.45 Patient denies any chest pain or undue shortness of breath with the above physical activity. Clinical Frailty Scale: 2. Well STOP-Bang Score: Has or is being treated for high blood pressure Denies snoring loudly Denies feeling tired, fatigued, or sleepy during the daytime Has not been observed to stop breathing or choking/gasping during sleep BMI less than or equal to 35 kg/m2 Patient 50 years old or younger Does not have a large neck Non-male patient STOP-Bang Score: 1 [id number] Score: Age: <65 Sex: female CHF history: No Hypertension history: Yes Stroke/TIA/thromboembolism history: No Vascular disease history: No Diabetes history: No [id number] Score: 2 ARISCAT Score: Age: <=50 Preoperative SpO2: >=96% Respiratory infection in the last month: No Preoperative anemia: Yes Duration of surgery: 2-3 hrs Emergency procedure: No ARISCAT Score: I - PHYSICAL EVALUATION AIRWAY Patient intubated: No. Tracheostomy tube not present Mallampati: II. TM distance: >3 FB. Neck ROM: full ROM without neurological symptoms. Mouth openin FB. Short neck: yes. Thick neck: yes Hutchinson present: no Lip Bite Test: II Microretrognathia/Micronagth ia/Recessed Chin: No DENTAL Dental findings: teeth intact. II - ANESTHESIA PLAN Anesthetic plan additional comments: *PACC/TCI - anesthesia choice. Informed Consent Prepared for surgery: This patient is optimally prepared for surgery. CONSULTS: Patient does not require consults for optimization at this time. The Following Tests/Procedures Have Been Initiated: Labs per surgeon Planned Anesthetic: Per anesthesia choice Subjective CHIEF COMPLAINT: Morbid obesity due to excess calories (HCC) [E66.01] HPI: Patient is a 30 year old FEMALE presenting for pre-op evaluation for the above procedure. Patient denies any chest pain, shortness of breath, palpitations, fever/chills, nausea/vomiting, fatigue, or diarrhea. REVIEW OF SYSTEMS: PAIN ASSESSMENT: General: No weight loss, malaise or fevers. Neuro: No history of TIA's, stroke, FINISHING AND SHIPPING SUPERVISOR tumor, impaired sensorium, hemiplegia, paraplegia or quadraplegia. No neurological symptoms or problems. Respiratory: No history of current cough or dyspnea, or pneumonia in the past 6 weeks. No history of respiratory/pulmonary symptoms or problems. Cardiovascular: Positive for: HTN, Negative for CAD, Chest Pain, CHF, DVT/PE GI: No history of GI symptoms or problems. No history of esophageal varices, recent ascites, or ETOH greater than 2 drinks per day. : No history of dysuria, frequency or incontinence,, stones or chronic kidney disease MEDICAL LABORATORY TECHNICIAN: Negative for abnormal vaginal bleeding, abnormal vaginal discharge. : Denies, Patient's last menstrual period was 01/16/2025. Endocrine: PCOS Hematology: No history of bleeding or clotting disorder. Pt is not taking anti-coagulation or platelet medications. No history of hematological symptoms or problems. Oncology: No (more content not included)... Normal [facility] CNOVon 06-23-2025 CNOV Office Visit ([id number] ) JANAY CRUZ ([id number]) 1995 F Date Time Provider Department 06/23/25 2:00 PM JANET MALCOLM [id number] During your visit today, we recorded the following information about you: Temperature Pulse Blood pressure Weight 97.2 degrees 66/minute 146/79 102 kg Height 1.626 m Janet Malcolm MD 06/23/2025 3:47 PM Signed SURGERY PREOPERATIVE VISIT NOTE Name: Janay Cruz Medical Record: [id number] Encounter No.: [id number] Janay Cruz is a 30 year old female seen in surgery clinic today for their final preoperative assessment. INTERVAL NOTE: Here to discuss regarding surgery PLANNED PROCEDURE: Sleeve gastrectomy. Patient does have gallstones but has no symptoms from it. We will defer a cholecystectomy. PAST MEDICAL HISTORY: PAST MEDICAL HISTORY Diagnosis Date Anxiety Hypertension PCOS (polycystic ovarian syndrome) PAST SURGICAL HISTORY: No past surgical history on file. SOCIAL HISTORY: SOCIAL HISTORY[1] ALLERGIES: ALLERGIES No Known Allergies MEDICATIONS: Prior to Admission Medications: spironolactone (ALDACTONE) 50 mg tablet Take 50 mg by mouth every morning. (Patient not taking: Reported on 01/21/2025) No current facility-administered medications for this visit. VISIT NOTE This patient was seen in clinic today to obtain informed consent, to discuss the details of their upcoming operation including the appropriate expectations for perioperative and postoperative care. In addition, preoperative and postoperative relevant prescriptions were provided and explained during this clinic visit. Based on co morbidities, age and gender, DVT risk is 0.2%. ERAS protocol discussed . Narcotics sparing postop recovery discussed . The consent discussion included the risks, benefits and anticipated outcomes of the procedure, the risks and benefits of the alternatives to the procedure, and the roles and tasks of the personnel to be involved. Patient is scheduled for laparoscopic possible open sleeve gastrectomy, possible repair of hiatal hernia, possible liver biopsy, and intraoperative EGD. I have discussed the risks of surgery including infection, bleeding including injury to the spleen, the mesenteric blood vessels, conversion in the open, postoperative leak requiring stenting, reoperation, resection or repair, stricture requiring dilation or revision, marginal ulcer requiring treatment including reoperation, and incisional hernias. I have also discussed the incidence of reflux problems after sleeve, the possibility of requiring medications for reflux as well or in the worst case scenario requiring surgery for reflux. I have also discussed regarding unsatisfactory weight loss as well as senior living weight regain. I have also discussed medical complications including urinary tract infections, myocardial infarction, DVT, PE, prolonged ICU stay, and possible postoperative mechanical ventilation and the risk of mortality. I have reviewed with this patient needed nutritional changes, post-operative recovery, and the potential for excess skin following surgery and subsequent weight loss. Risks of nicotine before and after bariatric surgery were also discussed with patient. I have also discussed in detail regarding postoperative hospital stay as well as recovery. Janet Malcolm MD [1] Social History Tobacco Use Smoking status: Former Types: Cigarettes Smokeless tobacco: Former Tobacco comments: Quit 6 years ago Substance Use Topics Alcohol use: Not Currently Drug use: Never Galileo Hartley MA 06/23/2025 3:47 PM Signed What is the reason for your visit today? Pre-Op LRYGB, DOS 07/06/25 Who is your referring physician? Program Are you having poor oral intake? NO Have you had unintentional weight loss of 15 lbs/7 Kg in the last 3-6 months? NO Bowels: regular Wound: Temperature: No Drains: No Allergies As of Date: 06/23/2025 (No Known Allergies) Date Reviewed: 06/23/2025 Reviewed by: Galileo Hartley MA - Fully Assessed Reason for Visit: Pre-Op Visit [1235] Cmt: Pre-Op LRYGB, DOS 07/06/25 Primary Visit Diagnosis:Obesity, Class II, BMI 35-39.9 [E66.812] Other Visit Diagnoses:Pre-op testing [Z01.818] Morbid obesity due to excess calories (HCC) [E66.01] Order(s):oxyCODONE IR (ROXICODONE) 5 mg immediate release tabletTake 1 tablet by mouth every 8 hours as needed for pain for up to 3 days.Disp: 5 tabletRfl: 0 scopolamine (TRANSDERM-SCOP) patch 1.5 mg/72 hr (delivers 1 mg over 3 days)Apply 1 patch as directed one time only for 1 dose. Apply behind ear the night before surgery at 6pm. Remove patch after 72 hours.Disp: 1 patchRfl: 0 ondansetron orally disintegrating (ZOFRAN ODT) 4 mg disintegrating tabletTake 1 tablet by mouth every 8 hours as needed for nausea/vomiting for up to 60 doses.Disp: 30 tabletRfl: 1 senna-docusate (SENNA-S) (more content not included)... [facility] 06-12-2025 [facility] Telephone (GENOM) JANAY CRUZ ([id number]) 1995 F Date Time Provider Department 06/12/25 JANET MALCOLM [facility] During your visit today, we recorded the following information about you: Allergies As of Date: 06/12/2025 (No Known Allergies) Date Reviewed: 02/12/2025 Reviewed by: Laure Dhillon RD - Fully Assessed Reason for Visit: Scheduling Surgery [Other] Gage Maker - Other [3602] Prescriptions as of 06/17/2025 - spironolactone (ALDACTONE) 50 mg tablet Take 50 mg by mouth every morning. Problem List As Of Date 06/12/2025 Noted Resolved Obesity, Class II, BMI 35-39.9 [E66.812] 01/07/2024 Anxiety disorder, unspecified [F41.9] 07/09/2023 Diagnosed: 01/11/2024 High blood pressure [I10] 01/11/2024 Diagnosed: 01/11/2024 Insulin resistance [E88.819] 08/02/2018 Diagnosed: 01/11/2024 PCOS (polycystic ovarian syndrome) [E28.2] 08/02/2018 Diagnosed: 01/11/2024 Encounter Status:Closed by CHRISTINA GARDNER on 06/17/25 [id number] JANAY CRUZ ([id number]) 1995 F Date Time Provider Department 06/11/25 JANET MALCOLM [id number] During your visit today, we recorded the following information about you: Eve Duval 06/11/2025 2:50 PM Signed Patient contacted the office of Dr Malcolm to express that she has not received a surgical date for her bariatric surgery and had received insurance approval letter a few weeks ago and advised my navigator . Patient would appreciate assistance from the office and or update if further steps are required as soon as possible. # [phone]. Thank you. Christina Hicks, RN 06/11/2025 4:05 PM Signed Returned call and informed patient that I would send her navigator an email to check on the status of the insurance approval. Patient understanding and thankful for call. Allergies As of Date: 06/11/2025 (No Known Allergies) Date Reviewed: 02/12/2025 Reviewed by: Laure Dhillon RD - Fully Assessed Reason for Visit: Gage Maker - Other [3602] Returning Patient's Call [[id number]] Prescriptions as of 06/11/2025 - spironolactone (ALDACTONE) 50 mg tablet Take 50 mg by mouth every morning. Problem List As Of Date 06/11/2025 Noted Resolved Obesity, Class II, BMI 35-39.9 [E66.812] 01/07/2024 Anxiety disorder, unspecified [F41.9] 07/09/2023 Diagnosed: 01/11/2024 High blood pressure [I10] 01/11/2024 Diagnosed: 01/11/2024 Insulin resistance [E88.819] 08/02/2018 Diagnosed: 01/11/2024 PCOS (polycystic ovarian syndrome) [E28.2] 08/02/2018 Diagnosed: 01/11/2024 Encounter Status:Closed by CHRISTINA GARDNER on 06/11/25 Normal [facility] RECURRENT VAGINITIS (HTRX)on 06-03-2025 ATOPOBIUM VAGINAE 25.277 Abnormal [facility] ATOPOBIUM VAGINAE Detected Abnormal [facility] BVAB 2,3 (BACTERIAL VAGINOSIS ASSOCIATED BACTERIA 2, 3); MOBILUNCUS SPP 0 [facility] BVAB 2,3 (BACTERIAL VAGINOSIS ASSOCIATED BACTERIA 2, 3); MOBILUNCUS SPP Not detected [facility] KAYE ALBICANS, PARAPSILOSIS, TROPICALIS 0 [facility] KAYE ALBICANS, PARAPSILOSIS, TROPICALIS Not detected [facility] KAYE GLABRATA 0 [facility] KAYE GLABRATA Not detected [facility] KAYE KRUSEI 0 [facility] KAYE KRUSEI Not detected [facility] CHLAMYDIA TRACHOMATIS 0 [facility] CHLAMYDIA TRACHOMATIS Not detected [facility] GARDNERELLA VAGINALIS 0 [facility] GARDNERELLA VAGINALIS Not detected [facility] Interpretation and review of laboratory results Abnormal [facility] MEGASPHAERA (TYPES 1, 2) 0 [facility] MEGASPHAERA (TYPES 1, 2) Not detected [facility] MYCOPLASMA GENITALIUM 0 [facility] MYCOPLASMA GENITALIUM Not detected [facility] NEISSERIA GONORRHOEAE 0 [facility] NEISSERIA GONORRHOEAE Not detected [facility] TRICHOMONAS VAGINALIS 0 [facility] TRICHOMONAS VAGINALIS Not detected [facility] CNCOon 05-13-2025 CNCO Letter Text Normal [facility] CNPNon 03-10-2025 CNPN Telephone (ENDOMN) JANAY CRUZ ([id number]) 1995 F Date Time Provider Department 03/10/25 SHANKAR BRITTMN During your visit today, we recorded the following information about you: Jenelle Malhotra MA 03/10/2025 9:04 AM Signed March 10, 2025 9:03 AM Last encounter Visit on 11/29/2023 (with Nataliia Ramos) Janay Cruz called regarding surgical clearance. Patient states is having bariatric surgery but has not got the clearance from Dr. Jose. Patient confused what is holding the approval up. She can be reached at [phone]. Jenelle Malhotra [facility] F20 AND X20 Allergies As of Date: 03/10/2025 (No Known Allergies) Date Reviewed: 02/12/2025 Reviewed by: Larue Dhillon RD - Fully Assessed Reason for Visit: Patient Question [9811] Prescriptions as of 03/10/2025 - spironolactone (ALDACTONE) 50 mg tablet Take 50 mg by mouth every morning. Problem List As Of Date 03/10/2025 Noted Resolved Obesity, Class II, BMI 35-39.9 [E66.812] 01/07/2024 Anxiety disorder, unspecified [F41.9] 07/09/2023 Diagnosed: 01/11/2024 High blood pressure [I10] 01/11/2024 Diagnosed: 01/11/2024 Insulin resistance [E88.819] 08/02/2018 Diagnosed: 01/11/2024 PCOS (polycystic ovarian syndrome) [E28.2] 08/02/2018 Diagnosed: 01/11/2024 Encounter Status:Closed by JENELLE MALHOTRA on 03/10/25 [facility] 02-24-2025 CNPN Telephone (GENBMI) JANAY CRUZ ([id number]) 1995 F Date Time Provider Department 02/24/25 SELF GENBMI During your visit today, we recorded the following information about you: Belinda Astudillo 02/24/2025 3:16 PM Signed Sent patient email regarding clearance patient has been cleared by nutrition and psych, I reach out to Dr. Jose on February 19, for clearance and again today February 24, 2025. Allergies As of Date: 02/24/2025 (No Known Allergies) Date Reviewed: 02/12/2025 Reviewed by: Laure Dhillon RD - Fully Assessed Prescriptions as of 02/24/2025 - spironolactone (ALDACTONE) 50 mg tablet Take 50 mg by mouth every morning. Problem List As Of Date 02/24/2025 Noted Resolved Obesity, Class II, BMI 35-39.9 [E66.812] 01/07/2024 Anxiety disorder, unspecified [F41.9] 07/09/2023 Diagnosed: 01/11/2024 High blood pressure [I10] 01/11/2024 Diagnosed: 01/11/2024 Insulin resistance [E88.819] 08/02/2018 Diagnosed: 01/11/2024 PCOS (polycystic ovarian syndrome) [E28.2] 08/02/2018 Diagnosed: 01/11/2024 Encounter Status:Closed by BELINDA ASTUDILLO on 02/24/25 Normal [facility] US ABD RIGHT UPPER QUADRANTo n 02-05-2025 US ABD RIGHT UPPER QUADRANT * * *Final Report* * * DATE OF EXAM: Feb 05 2025 2:43PM [facility] 1032 - US ABD RIGHT UPPER QUADRANT / PROCEDURE REASON: Encounter for other preprocedural examination * * * * Physician Interpretation * * * * EXAMINATION: RIGHT UPPER QUADRANT ULTRASOUND CLINICAL HISTORY: Pain. TECHNIQUE: Sonography of the right upper quadrant was performed. Images were obtained and stored in a permanent archive. MQ: [id number] COMPARISON: None. RESULT: Pancreas: Normal sonographic appearance. Portions obscured: tail Liver: Echotexture: Normal, homogeneous. Echogenicity: Moderately increased Surface contour: Smooth Lesions: None. Ill-defined hypoechoic area adjoining the gallbladder fossa likely represents focal fatty sparing. Biliary: No intrahepatic biliary duct dilation. CBD: 0.3 cm at the hilum. Gallbladder: Small, sub-5 mm calculi. Unremarkable otherwise without wall thickening, edema or pericholecystic fluid Right Kidney: No hydronephrosis. Ascites: None. IMPRESSION: 1. Moderate hepatic steatosis. 2. Cholelithiasis without evidence of acute cholecystitis. Machinist Supervisor: TIMMY Transcribe Date/Time: Feb 05 2025 5:32P Dictated by : JACINDA HILTON MD This examination was interpreted and the report reviewed and electronically signed by: JACINDA HILTON MD on Feb 05 2025 5:37PM EST [id number] Normal [facility] XR CHEST 2V FRONTAL/LATon XR CHEST 2V FRONTAL/LAT * * *Final Report* * * DATE OF EXAM: Feb 05 2025 2:19PM [facility]HX 5291 - XR CHEST 2V FRONTAL/LAT / PROCEDURE REASON: Encounter for other preprocedural examination * * * * Physician Interpretation * * * * EXAMINATION: CHEST RADIOGRAPH (2 VIEW FRONTAL and LATERAL) CLINICAL HISTORY: Encounter for other preprocedural examination MQ: [id number] EXAM DATE/TIME: 02/05/2025 2:19 PM COMPARISON: 01/21/2024 RESULT: Lines, tubes, and devices: None. Lungs and pleura: No consolidation. No lung mass. No pleural effusion. No pneumothorax. Cardiomediastinal silhouette: Normal cardiomediastinal silhouette. Bones and soft tissues: Unremarkable. IMPRESSION: No acute radiographic abnormality. Machinist Supervisor: PSCLisandra Transcribe Date/Time: Feb 07 2025 10:50A Dictated by : JENNA BUSTAMANTE MD This examination was interpreted and the report reviewed and electronically signed by: JENNA BUSTAMANTE MD on Feb 07 2025 10:50AM EST [id number] Normal [facility] 25(OH)D3 SerPl-mCncon 2024 25-hydroxyvitamin D3 [Mass/Vol] 32.8 ng/mL Normal 31.0-80.0 [facility] Comment on above: Order Comment: Speci men Type: BLOOD SPECIMEN Ordering Facility: [facility] Address: [address] [place] [address] Result Comment: Clas sification of 25 OH Vitamin D status: Deficiency/Insufficiency: < or = 30 ng/ml. Sufficiency/Optimal Levels: 31-80 ng/mL Toxicity: > 100 ng/mL. Test performed by chemiluminescent immunoassay. Performed By: #### 1 989-3 #### [facility] CLIA [id number] [address] [place] [address] [place] [address] [place] CBC W Auto Differential pane l (Bld)on 01-28-2025 Basophils (Bld) [#/Vol] 0.07 10*3/uL Normal <0.11 [facility] Comment on above: Order Comment: Speci men Type: BLOOD SPECIMEN Ordering Facility: [facility] Address: [address] [place] [address] Performed By: #### 1 989-3 #### [facility] CLIA [id number] [address] [place] [address] [place] Basophils/100 WBC (Bld) 1.0 % Normal [facility] Comment on above: Order Comment: Speci men Type: BLOOD SPECIMEN Ordering Facility: [facility] Address: [address] [place] [address] Performed By: #### 1 989-3 #### [facility] CLIA [id number] [address] [place] [address] [place] Differential cell count method Nom (Bld) Auto Normal [facility] Comment on above: Order Comment: Speci men Type: BLOOD SPECIMEN Ordering Facility: [facility] Address: [address] [place] [address] Performed By: #### 1 989-3 #### [facility] CLIA [id number] [address] [place] [address] [place] Eosinophils (Bld) [#/Vol] 0.29 10*3/uL Normal <0.46 [facility] Comment on above: Order Comment: Speci men Type: BLOOD SPECIMEN Ordering Facility: [facility] Address: [address] [place] [address] Performed By: #### 1 989-3 #### [facility] CLIA [id number] [address] [place] [address] [place] Eosinophils/100 WBC (Bld) 4.1 % Normal [facility] Comment on above: Order Comment: Speci men Type: BLOOD SPECIMEN Ordering Facility: [facility] Address: [address] [place] [address] Performed By: #### 1 989-3 #### [facility] CLIA [id number] [address] [place], [place] [id number] [place] Erythrocyte distribution width (RBC) [Ratio] 13.1 % Normal 11.5-15.0 [facility] Comment on above: Order Comment: Speci men Type: BLOOD SPECIMEN Ordering Facility: [facility] Address: [address] [place] [address] Performed By: #### 1 989-3 #### [facility] CLIA [id number] [address] [place] [address] [place] Hematocrit (Bld) [Volume fraction] 42.8 % Normal 36.0-46.0 [facility] Comment on above: Order Comment: Speci men Type: BLOOD SPECIMEN Ordering Facility: [facility] Address: [address] [place] [address] Performed By: #### 1 989-3 #### [facility] CLIA [id number] [address] [place] [address] [place] Hemoglobin (Bld) [Mass/Vol] 13.8 g/dL Normal 11.5-15.5 [facility] Comment on above: Order Comment: Speci men Type: BLOOD SPECIMEN Ordering Facility: [facility] Address: [address] [place] [address] Performed By: #### 1 989-3 #### [facility] CLIA [id number] [address] [place] [address] [place] Immature granulocytes (Bld) [#/Vol] 10*3/uL Normal <0.10 [facility] Comment on above: Order Comment: Speci men Type: BLOOD SPECIMEN Ordering Facility: [facility] Address: [address] [place] [address] Performed By: #### 1 989-3 #### [facility] CLIA [id number] [address] [place] [address] [place] Immature granulocytes/100 WBC (Bld) 0.3 % Normal [facility] Comment on above: Order Comment: Speci men Type: BLOOD SPECIMEN Ordering Facility: [facility] Address: [address] [place] [address] Performed By: #### 1 989-3 #### [facility] CLIA [id number] [address] [place] [address] [place] Lymphocytes (Bld) [#/Vol] 2.40 10*3/uL Normal 1.00-4.00 [facility] Comment on above: Order Comment: Speci men Type: BLOOD SPECIMEN Ordering Facility: [facility] Address: [address] [place] [address] Performed By: #### 1 989-3 #### [facility] CLIA [id number] [address] [place] [address] [place] Lymphocytes/100 WBC (Bld) 34.3 % Normal [facility] Comment on above: Order Comment: Speci men Type: BLOOD SPECIMEN Ordering Facility: [facility] Address: [address] [place] [address] Performed By: #### 1 989-3 #### [facility] CLIA [id number] [address] [place] [address] [place] MCH (RBC) [Entitic mass] 27.7 pg Normal 26.0-34.0 [facility] Comment on above: Order Comment: Speci men Type: BLOOD SPECIMEN Ordering Facility: [facility] Address: [address] [place] [address] Performed By: #### 1 989-3 #### [facility] CLIA [id number] [address] [place] [address] [place] MCHC (RBC) [Mass/Vol] 32.2 g/dL Normal 30.5-36.0 [facility] Comment on above: Order Comment: Speci men Type: BLOOD SPECIMEN Ordering Facility: [facility] Address: [address] [place] [address] Performed By: #### 1 989-3 #### [facility] CLIA [id number] [address] [place] [address] [place] MCV (RBC) [Entitic vol] 85.9 fL Normal 80.0-100.0 [facility] Comment on above: Order Comment: Speci men Type: BLOOD SPECIMEN Ordering Facility: [facility] Address: [address] [place] [address] Performed By: #### 1 989-3 #### [facility] CLIA [id number] [address] [place] [address] [place] Monocytes (Bld) [#/Vol] 0.59 10*3/uL Normal <0.87 [facility] Comment on above: Order Comment: Speci men Type: BLOOD SPECIMEN Ordering Facility: [facility] Address: [address] [place] [address] Performed By: #### 1 989-3 #### [facility] CLIA [id number] [address] [place] [address] [place] Monocytes/100 WBC (Bld) 8.4 % Normal [facility] Comment on above: Order Comment: Speci men Type: BLOOD SPECIMEN Ordering Facility: [facility] Address: [address] [place] [address] Performed By: #### 1 989-3 #### [facility] CLIA [id number] [address] [place] [address] [place] Neutrophils (Bld) [#/Vol] 3.62 10*3/uL Normal 1.45-7.50 [facility] Comment on above: Order Comment: Speci men Type: BLOOD SPECIMEN Ordering Facility: [facility] Address: [address] [place] [address] Performed By: #### 1 989-3 #### [facility] CLIA [id number] [address] [place] [address] [place] Neutrophils/100 WBC (Bld) 51.9 % Normal [facility] Comment on above: Order Comment: Speci men Type: BLOOD SPECIMEN Ordering Facility: [facility] Address: [address] [place] [address] Performed By: #### 1 989-3 #### [facility] CLIA [id number] [address] [place] [address] [place] Nucleated RBC (Bld) [#/Vol] 10*3/uL Normal <0.01 [facility] Comment on above: Order Comment: Speci men Type: BLOOD SPECIMEN Ordering Facility: [facility] Address: [address] [place] [address] Performed By: #### 1 989-3 #### [facility] CLIA [id number] [address] [place] [address] [place] Nucleated RBC/100 WBC (Bld) [Ratio] 0.0 /100 WBC Normal [facility] Comment on above: Order Comment: Speci men Type: BLOOD SPECIMEN Ordering Facility: [facility] Address: [address] [place] [address] Performed By: #### 1 989-3 #### [facility] CLIA [id number] [address] [place] [address] [place] Platelet mean volume (Bld) [Entitic vol] 10.3 fL Normal 9.0-12.7 [facility] Comment on above: Order Comment: Speci men Type: BLOOD SPECIMEN Ordering Facility: [facility] Address: [address] [place] [address] Performed By: #### 1 989-3 #### [facility] CLIA [id number] [address] [place] [address] [place] Platelets (Bld) [#/Vol] 287 10*3/uL Normal 150-400 [facility] Comment on above: Order Comment: Speci men Type: BLOOD SPECIMEN Ordering Facility: [facility] Address: [address] [place] [address] Performed By: #### 1 989-3 #### [facility] CLIA [id number] [address] [place] [address] [place] RBC (Bld) [#/Vol] 4.98 10*6/uL Normal 3.90-5.20 [facility] Comment on above: Order Comment: Specsudarshan men Type: BLOOD SPECIMEN Ordering Facility: [facility] Address: [address] [place] [address] Performed By: #### 1 989-3 #### [facility] CLIA [id number] [address] [place] [address] OF [place] WBC (Bld) [#/Vol] 6.99 10*3/uL Normal 3.70-11.00 [facility] Comment on above: Order Comment: Speci men Type: BLOOD SPECIMEN Ordering Facility: [facility] Address: [address] [place] [address] Performed By: #### 1 989-3 #### [facility] CLIA [id number] [address] [place] [address] OF [facility] CNOVon 01-28-2025 CNOV Office Visit (CARDAV ) JANAY CRUZ ([id number]) 1995 F Date Time Provider Department 01/28/25 11:00 AM NURSE CARD [facility] JUAREZ KNOX During your visit today, we recorded the following information about you: Karlee Nunez, JOSE DAVID 01/28/2025 11:15 AM Signed OUTPATIENT VISIT TYPE NURSE VISIT PATIENT NAME: Janay Cruz DATE OF SERVICE: 01/28/2025 PRIMARY FLAMER AFTER LASTING: n/a Janay Cruz is a 29 year old established patient who presents today for a nurse visit per Dr Britt for an EKG Patient taking medication as prescribed: n/a Took medication today: n/a VISIT VITAL SIGNS: LMP 01/16/2025 Physician/HECTOR notification and treatment plan: No abnormal findings. Nursing Plan: N/A Patient instructed to call and update the office if there are any changes in current condition. Patient verbalizes understanding of the plan: Yes. Patient's questions were addressed during the visit today: Yes Karlee Nunez RN January 28, 2025 11:14 AM Referring Provider: SHANKAR BRITT [[id number]] Allergies As of Date: 01/28/2025 (No Known Allergies) Date Reviewed: 01/23/2025 Reviewed by: Laure Dhillon RD - Fully Assessed Reason for Visit: Nurse Visit [792] Visit Diagnosis:Encounter for other preprocedural examination [Z01.818] Order(s):ECG COMPLETE [ECG01] Order #: [id number]. #:[id number] Prescriptions as of 01/28/2025 - spironolactone (ALDACTONE) 50 mg tablet Take 50 mg by mouth every morning. Problem List As Of Date 01/28/2025 Noted Resolved Obesity, Class II, BMI 35-39.9 [E66.812] 01/07/2024 Anxiety disorder, unspecified [F41.9] 07/09/2023 Diagnosed: 01/11/2024 High blood pressure [I10] 01/11/2024 Diagnosed: 01/11/2024 Insulin resistance [E88.819] 08/02/2018 Diagnosed: 01/11/2024 PCOS (polycystic ovarian syndrome) [E28.2] 08/02/2018 Diagnosed: 01/11/2024 Encounter Status:Closed by KARLEE NUNEZ on 01/28/25 Normal [facility] Comprehensive metabolic 2000 panelon 01-28-2025 Albumin [Mass/Vol] 4.4 g/dL Normal 3.9-4.9 [facility] Comment on above: Order Comment: Speci men Type: BLOOD SPECIMEN Ordering Facility: [facility] Address: [address] [place] [address] Performed By: #### 5 0190-8, 75835-1, 67387-6, 3016-3 #### [facility] CLIA [id number] [address] [facility] [place] [address] [place] ALP [Catalytic activity/Vol] 79 U/L Normal 34-123 [facility] Comment on above: Order Comment: Speci men Type: BLOOD SPECIMEN Ordering Facility: [facility] Address: [facility] [address] Performed By: #### 5 0190-8, 53936-1, 73793-9, 3016-3 #### [facility] CLIA [id number] [address] [place] [address] [place] ALT [Catalytic activity/Vol] 176 U/L High 7-38 [facility] Comment on above: Order Comment: Speci men Type: BLOOD SPECIMEN Ordering Facility: [facility] Address: [address] [place] [address] Performed By: #### 5 0190-8, 87621-0, 98037-6, 3016-3 #### [facility] CLIA [id number] [address] [place] [address] [place] [facility] Anion gap [Moles/Vol] 9 mmol/L Normal 8-15 [facility] Comment on above: Order Comment: Speci men Type: BLOOD SPECIMEN Ordering Facility: [facility] Address: [address] [place] [address] Performed By: #### 5 0190-8, 48492-7, 01881-1, 3016-3 #### [facility] CLIA [id number] [address] [place] [address] [place] [facility] AST [Catalytic activity/Vol] 60 U/L High 13-35 [facility] Comment on above: Order Comment: Speci men Type: BLOOD SPECIMEN Ordering Facility: [facility] Address: [address] [place] [address] Performed By: #### 5 0190-8, 84363-9, 73709-3, 3016-3 #### [facility] CLIA [id number] [address] [place] [address] [place] Bilirubin [Mass/Vol] 0.6 mg/dL Normal 0.2-1.3 [facility] Comment on above: Order Comment: Speci men Type: BLOOD SPECIMEN Ordering Facility: [facility] Address: [address] [place] [address] Performed By: #### 5 0190-8, 62115-3, 84284-6, 3016-3 #### [facility] CLIA [id number] [address] [place] [address] [place] Calcium [Mass/Vol] 9.5 mg/dL Normal 8.5-10.2 [facility] Comment on above: Order Comment: Speci men Type: BLOOD SPECIMEN Ordering Facility: [facility] Address: [address] [place], [place] [address] Performed By: #### 5 0190-8, 48405-6, 44254-6, 3016-3 #### [facility] CLIA [id number] [address] [place] [address] [place] Chloride [Moles/Vol] 107 mmol/L Normal 98-107 [facility] Comment on above: Order Comment: Speci men Type: BLOOD SPECIMEN Ordering Facility: [facility] Address: [address] [place], [place] [address] Performed By: #### 5 0190-8, 38951-2, 19241-2, 3016-3 #### [facility] CLIA [id number] [address] [place] [address] [place] CO2 [Moles/Vol] 25 mmol/L Normal 22-30 [facility] Comment on above: Order Comment: Speci men Type: BLOOD SPECIMEN Ordering Facility: [facility] Address: [address] [place], [place] [address] Performed By: #### 5 0190-8, 58162-3, 43509-6, 3016-3 #### [facility] CLIA [id number] [address] [place] [address] [place] Creatinine [Mass/Vol] 0.79 mg/dL Normal 0.58-0.96 [facility] Comment on above: Order Comment: Speci men Type: BLOOD SPECIMEN Ordering Facility: [facility] Address: [address] [place], [place] [address] Performed By: #### 5 0190-8, 09652-0, 84693-3, 3016-3 #### [facility] CLIA [id number] [address] [place] [address] [place] Creatinine and Glomerular filtration rate.predicted panel (S/P/Bld) 103 mL/min/1.73m??? Normal >=60 [facility] Comment on above: Order Comment: Akira hussein Type: BLOOD SPECIMEN Ordering Facility: [facility] Address: [address] [place] [address] Result Comment: Rosanne mated Glomerular Filtration Rate (eGFR) is calculated using the 2020 CKD-EPI creatinine equation. This equation utilizes serum creatinine, sex, and age as parameters. The creatinine assay has traceable calibration to isotope dilution-mass spectrometry. Refer to KDIGO guidelines for clinical interpretation. In patients with unstable renal function, e.g. those with acute kidney injury, the eGFR may not accurately reflect actual GFR. Performed By: #### 5 0190-8, 21113-5, 19299-4, 3016-3 #### [facility] CLIA [id number] [address] [facility] [place] [address] [place] Glucose [Mass/Vol] 100 mg/dL High 74-99 [facility] Comment on above: Order Comment: Akira hussein Type: BLOOD SPECIMEN Ordering Facility: [facility] Address: [address] [place] [address] Result Comment: The [place] Diabetes Association (ADA) provides guidance for cutoff [...] Standards of Medical Care in Diabetes 2016, [place] Diabetes Association. Diabetes Care. 2016.39(Suppl 1). Performed By: #### 5 0190-8, 64419-8, 73174-5, 3016-3 #### [facility] CLIA [id number] [address] [place] [address] [place] Potassium [Moles/Vol] 4.3 mmol/L Normal 3.7-5.1 [facility] Comment on above: Order Comment: Speci men Type: BLOOD SPECIMEN Ordering Facility: [facility] Address: [address] [place] [address] Performed By: #### 5 0190-8, 06851-6, 96817-2, 3016-3 #### [facility] CLIA [id number] [address] [place] [address] [place] Protein [Mass/Vol] 7.1 g/dL Normal 6.3-8.0 [facility] Comment on above: Order Comment: Speci men Type: BLOOD SPECIMEN Ordering Facility: [facility] Address: [address] [place] [address] Performed By: #### 5 0190-8, 27609-2, 91428-3, 6-3 #### [facility] CLIA [id number] [address] [place] [address] [place] Sodium [Moles/Vol] 141 mmol/L Normal 136-144 [facility] Comment on above: Order Comment: Speci men Type: BLOOD SPECIMEN Ordering Facility: [facility] Address: [address] [place] [address] Performed By: #### 5 0190-8, 54249-8, 38016-1, 3016-3 #### [facility] CLIA [id number] [address] [place] [address] [place] Urea nitrogen [Mass/Vol] 12 mg/dL Normal 7-21 [facility] Comment on above: Order Comment: Speci men Type: BLOOD SPECIMEN Ordering Facility: [facility] Address: [address] [place] [address] Performed By: #### 5 0190-8, 42055-1, 69152-9, 3016-3 #### [facility] CLIA [id number] [address] [place] [address] [place] ECG COMPLETEon 01-28-2025 Atrial Rate 52 BPM [facility] Calculated P Niles 44 degrees [facility] Calculated R Niles 72 degrees [facility] Calculated T Niles -3 degrees [facility] P-R Interval 150 ms [facility] QRS Duration 88 ms [facility] QT Interval 442 ms [facility] QTC Calculation (Bazett) 411 ms [facility] Ventricular Rate 52 BPM [facility] SINUS BRADYCARDIA ABNORMAL QRS-T ANGLE, CONSIDER PRIMARY T WAVE ABNORMALITY ABNORMAL ECG Confirmed by SLOANE BARFIELD MD ([id number]) on 01/28/2025 1:37:02 PM [facility] NAME : ANICETO CRUZ Obed PID : [id number] : 1995 Gender : Female Race : Unknown ORD : [id number] Procedure Date : Jan 28 2025 11:12:00 Edit Date : Jan 28 2025 13:37:03 Diagnosis: SINUS BRADYCARDIA ABNORMAL QRS-T ANGLE, CONSIDER PRIMARY T WAVE ABNORMALITY ABNORMAL ECG Confirmed by SLOANE BARFIELD MD ([id number]) on 01/28/2025 1:37:02 PM Test Reason : Location : 192 : [facility] Overread By : SLOANE BARFIELD MD Edited By : SLOANE BARFIELD MD Referred By : SHANKAR BRITT Acquired by : , [facility] ECG COMPLETE Ventricular Rate : 5 2 BPM Atrial Rate : 52 BPM P-R Interval : 150 ms QRS Duration : 88 ms Q-T Interval : 442 ms QTC Calculation(Bazett) : 411 ms Calculated P Niles : 44 degrees Calculated R Niles : 72 degrees Calculated T Niles : -3 degrees SINUS BRADYCARDIA ABNORMAL QRS-T ANGLE, CONSIDER PRIMARY T WAVE ABNORMALITY ABNORMAL ECG Confirmed by SLOANE BARFIELD MD ([id number]) on 01/28/2025 1:37:02 PM NAME : RANJITH CRUZRINA PID : [id number] : 1995 Gender : Female Race : Unknown ORD : [id number] Procedure Date : Jan 28 2025 11:12:00 Edit Date : Jan 28 2025 13:37:03 Diagnosis: SINUS BRADYCARDIA ABNORMAL QRS-T ANGLE, CONSIDER PRIMARY T WAVE ABNORMALITY ABNORMAL ECG Confirmed by SLOANE BARFIELD MD ([id number]) on 01/28/2025 1:37:02 PM Test Reason : Location : 192 : [facility] Overread By : SLOANE BARFIELD MD Edited By : SLOANE BARFIELD MD Referred By : SHANKAR BRITT Acquired by : , Normal [facility] Ferritin SerPl-mCncon 2024 Ferritin [Mass/Vol] 180.7 ng/mL Normal 14.7-205.1 [facility] Comment on above: Order Comment: Akira hussein Type: BLOOD SPECIMEN Ordering Facility: [facility] Address: [address] [place] [address] Performed By: #### 2 276-4, 39233-1 #### [facility] CLIA [id number] [address] [place] [address] [place] Folate SerPl-mCncon 01-29-20 25 Folate [Mass/Vol] 12.2 ng/mL Normal >4.7 [facility] Comment on above: Order Comment: Akira hussein Type: BLOOD SPECIMEN Ordering Facility: [facility] Address: [address] [place] [address] Performed By: #### 1 989-3 #### [facility] CLIA [id number] [address] [place] [address] [place] HbA1c (Bld)on 01-28-2025 Average glucose Estimated from glycated hemoglobin (Bld) [Mass/Vol] 97 mg/dL Normal [facility] Comment on above: Order Comment: Akira hussein Type: BLOOD SPECIMEN Ordering Facility: [facility] Address: [address] [place] [address] Result Comment: eAG: (Estimated average glucose) is a calculated value from HgbA1c and is digital sales representative of the average blood glucose level in the last 2-3 month period. Performed By: #### 5 5454-3 #### [facility] CLIA [id number] [address] [place] [address] [place] HbA1c (Bld) [Mass fraction] 5.0 % Normal 4.3-5.6 [facility] Comment on above: Order Comment: Akira men Type: BLOOD SPECIMEN Ordering Facility: [facility] Address: [address] [place] [address] Result Comment: Amer ican Diabetes Association guidelines indicate that patients with HgbA1c in the range 5.7-6.4% are at increased risk for development of diabetes, and intervention by lifestyle modification may be beneficial. HgbA1c greater or equal to 6.5% is considered diagnostic of diabetes. Performed By: #### 5 5454-3 #### [facility] CLIA [id number] [address] [place] [address] [place] [address] [place] Iron and Iron binding capaci ty panel 01-28-2025 Iron [Mass/Vol] 65 ug/dL Normal 41-186 [facility] Comment on above: Order Comment: Akira hussein Type: BLOOD SPECIMEN Order[facility] Facility: [facility] Address: [address] [place] [address] Performed By: #### 5 0190-8, 44946-6, 33205-5, 3016-3 #### [facility] CLIA [id number] [address] [place] [address] [place] Iron binding capacity [Mass/Vol] 308 ug/dL Normal 232-386 [facility] Comment on above: Order Comment: Akira hussein Type: BLOOD SPECIMEN Ordering Facility: [facility] Address: [address] [place] [address] Performed By: #### 5 0190-8, 49965-0, 86118-9, 3016-3 #### [facility] CLIA [id number] [address] [place] [address] [facility] Iron/TIBC [Molar ratio] 21.1 % Normal 15.0-57.0 [facility] Comment on above: Order Comment: Akira men Type: BLOOD SPECIMEN Ordering Facility: [facility] Address: [address] [place] [address] Performed By: #### 5 0190-8, 55997-5, 97045-0, 3016-3 #### [facility] CLIA [id number] [address] [place] [address] [place] Lipid 1996 panelon 5 Cholesterol [Mass/Vol] 170 mg/dL Normal <200 [facility] Comment on above: Order Comment: Akira hussein Type: BLOOD SPECIMEN Ordering Facility: [facility] Address: [address] [place] [address] Result Comment: <200 mg/dL, Desirable 200-239 mg/dL, Borderline high >239 mg/dL, High Performed By: #### 5 0190-8, 21158-0, 84265-6, 3016-3 #### [facility] CLIA [id number] [address] [facility] [place] [address] [place] Cholesterol in HDL [Mass/Vol] 35 mg/dL Low >39 [facility] Comment on above: Order Comment: Akira hussein Type: BLOOD SPECIMEN Ordering Facility: [facility] Address: [address] [place] [address] Result Comment: 40-5 9 mg/dL, Acceptable >59 mg/dL, High: Negative risk factor for coronary heart disease <40 mg/dL, Low: Positive risk factor for coronary heart disease Performed By: #### 5 0190-8, 44907-0, 94580-6, 3016-3 #### [facility] CLIA [id number] [address] [facility] [place] [address] [place] Cholesterol in LDL [Mass/Vol] 98 mg/dL Normal <100 [facility] Comment on above: Order Comment: Akira hussein Type: BLOOD SPECIMEN Ordering Facility: [facility] Address: [address] [place] [address] Result Comment: <100 mg/dL, Optimal 100-129 mg/dL, Near optimal/above optimal 130-159 mg/dL, Borderline high 160-189 mg/dL, High >189 mg/dL, Very high Secondary prevention optimal LDL Cholesterol levels are recommended to be < 70 mg/dL Performed By: #### 5 0190-8, 17815-1, 23918-6, 3016-3 #### [facility] CLIA [id number] [address] [facility] [place] [address] [place] Cholesterol in LDL/Cholesterol in HDL [Mass ratio] 2.80 {ratio} High <2.54 [facility] Comment on above: Order Comment: Akira hussein Type: BLOOD SPECIMEN Ordering Facility: [facility] Address: [address] [place] [address] Result Comment: Al savage: 1. National Cholesterol Education Program ATP III Guideline At-A-Glance Quick Desk Reference: National Heart, Lung, and Blood [place]. National Institutes of Health. 2001: NIH Publication No. 01-3305. 2. An International Atherosclerosis Society position paper: global recommendations for the management of dyslipidemia: executive summary, Atherosclerosis. 2014: 232(2):410-413. Performed By: #### 5 0190-8, 34368-3, 89043-2, 3016-3 #### [facility] CLIA [id number] [address] [facility] [place] [address] [place] [address] [place] Cholesterol in VLDL [Mass/Vol] 37 mg/dL High <30 [facility] Comment on above: Order Comment: Akira hussein Type: BLOOD SPECIMEN Ordering Facility: [facility] Address: [address] [place] [address] Performed By: #### 5 0190-8, 59845-3, 92110-3, 3016-3 #### [facility] CLIA [id number] [address] [facility] [place] [address] [place] Cholesterol non HDL [Mass/Vol] 135 mg/dL High <130 [facility] Comment on above: Order Comment: Akira hussein Type: BLOOD SPECIMEN Ordering Facility: [facility] Address: [address] [place] [address] Result Comment: <130 mg/dL, Optimal 130-159 mg/dL, Near optimal/above optimal 160-189 mg/dL, Borderline high 190-219 mg/dL, High >219 mg/dL, Very high Secondary prevention optimal non HDL Cholesterol levels are recommended to be <100 mg/dL Performed By: #### 5 0190-8, 27612-9, 69562-4, 3016-3 #### [facility] CLIA [id number] [address] [facility] [place] [address] [place] Cholesterol.total/Ch olesterol in HDL [Mass ratio] 4.86 {ratio} Normal <5.10 [facility] Comment on above: Order Comment: Speci men Type: BLOOD SPECIMEN Ordering Facility: [facility] Address: [address] [place] [address] Performed By: #### 5 0190-8, 63922-4, 11345-5, 3016-3 #### [facility] CLIA [id number] [address] [place] [id number] [place] [address] [place] FASTING TIME 12 hrs Normal [facility] Comment on above: Order Comment: Speci men Type: BLOOD SPECIMEN Ordering Facility: [facility] Address: [address] [place] [address] Performed By: #### 5 0190-8, 70290-4, 35670-4, 3016-3 #### [facility] CLIA [id number] [address] [place] [id number] [place] [address] [place] Triglyceride [Mass/Vol] 187 mg/dL High <150 [facility] Comment on above: Order Comment: Speci men Type: BLOOD SPECIMEN Ordering Facility: [facility] Address: [address] [place] [address] Result Comment: <150 mg/dL, Normal 150-199 mg/dL, Borderline high 200-499 mg/dL, High >499 mg/dL, Very high Performed By: #### 5 0190-8, 90904-3, 05920-1, 3016-3 #### [facility] CLIA [id number] [address] [place] [address] [place] NT-proBNP [facility] 01-28 Natriuretic peptide.B prohormone N-Terminal [Mass/Vol] 36 pg/mL Normal <125 [facility] Comment on above: Order Comment: Speci men Type: BLOOD SPECIMEN Ordering Facility: [facility] Address: [address] [place] [address] Performed By: #### 2 276-4, 13093-0 #### [facility] CLIA [id number] [address] [place] [address] [place] TSH SerPl-aCncon 01-28-2025 TSH Qn 1.180 m[IU]/L Normal 0.270-4.20 0 [facility] Comment on above: Order Comment: Akira hussein Type: BLOOD SPECIMEN Ordering Facility: [facility] Address: [address] [place] [id number] Result Comment: If t he patient is , TSH reference range varies by gestational period: First Trimester (weeks 9-12): 0.180-2.990 mIU/L Second Trimester: 0.110-3.980 mIU/L Third Trimester: 0.480-4.710 mIU/L Polo Hussein et al. A Practical Approach for the Verifications and Determination of Site- and Trimester-Specific Reference Intervals for Thyroid Function tests in . Thyroid, 2019:29:3:412-420. Gabriel Marquis et al. 2017 Guidelines of the [place] Thyroid Association for the Diagnosis and Management of Thyroid Disease during and the . Thyroid, 2017:27:3:315-389. Performed By: #### 5 0190-8, 54022-9, 23468-3, 3016-3 #### [facility] CLIA [id number] [address] [place] VITAMIN B1 (THIAMINE), WHOLE BLOODon 01-28-2025 Thiamine (Bld) [Moles/Vol] 137.0 nmol/L Normal 84.3-213.3 [facility] Comment on above: Order Comment: Akira hussein Type: BLOOD SPECIMEN Ordering Facility: [facility] Address: [address] [place] [address] Result Comment: This assay measures the concentration of thiamine diphosphate (TDP), the primary active form of vitamin B1. Approximately 90 percent of vitamin B1 present in whole blood is TDP. Thiamine and thiamine monophosphate, which comprise the remaining 10 percent, are not measured. This test was developed, and its performance characteristics determined by the [facility] Department of Pathology and Laboratory Medicine. It has not been cleared or approved by the FDA. The [facility] Department of Pathology and Laboratory Medicine is regulated under CLIA as qualified to perform high-complexity testing. This test is used for clinical purposes. It should not be regarded as investigational or for research. Performed By: #### B 1WB #### [facility] CLIA [id number] [address] [place] [address] [place] [address] [place] Vit B12 SerPl-ncon 16-2 025 Cobalamin (Vitamin B12) [Mass/Vol] 587 pg/mL Normal 232-1245 [facility] Comment on above: Order Comment: Speci men Type: BLOOD SPECIMEN [facility] Facility: [facility] Address: [address] [place] [address] Performed By: #### 1 989-3 #### [facility] CLIA [id number] [address] [place] [address] [place] CNOVon 01-21-2025 CNOV Office Visit (GENBMI ) JANAY CRUZ ([id number]) 1995 F Date Time Provider Department 01/21/25 2:15 PM SHANKAR BRITT During your visit today, we recorded the following information about you: Pulse Blood pressure Weight Height 81/minute 145/78 99.5 kg 1.626 m Last Period 01/16/25 Shankar Britt MD 03/10/2025 10:58 AM Addendum BMI Obesity Medicine New Bariatric Surgery Consult January 21, 2025 BMI Surgical Pathway Visit type: Obesity Medicine Visit Consultation requested by Dr. Malcolm for an opinion regarding preoperative evaluation for bariatric surgery. My final recommendations will be communicated back to the requesting physician by way of shared medical record or via US mail. Patient Summary: Janay Cruz is 29 year old female with class 3 obesity who presents for medical assessment of obesity. The patient is interested in laparoscopic sleeve gastrectomy and has decided to have the procedure with Janet Malcolm MD PMH: HTN, HLD, prediabetes, history of gestational diabetes, PCOS, fatty liver disease, iron deficiency Medications: None Contraception: s/p tubal ligation Weight Graph (see patient drawn graph scanned in chart) Weight History: She reports a family history of obesity (pGM) and childhood onset weight gain starting at the age of 11. She was approximately 200 lbs in high school and gradually gained weight since then. Highest weight has been 229 lbs with her fourth in 2020. She attributes the weight gain to the following factors: Suboptimal diet, limited physical activity, inadequate sleep duration, weight retention after 4 pregnancies (13, 8, 4, and 2 years ago), as well as tobacco cessation 5 years ago (smoked 15 years 0.5-1 PPD). Prior weight loss attempts included self-directed diet, self-directed exercise programs, working with dietitian and weight loss medications (metformin, phentermine, and Ozempic). Prior AOM trials: - Metformin x 2 years (2017 - 2019) and again x 4 months in 2023 - did not lose weight - Phentermine x 1 year ([id number]): Lost 10 pounds but made her jittery - Ozempic x 2 months in 2023: Lost around 10 pounds but experienced severe GI side effects so stopped She initially wanted to pursue bariatric surgery in the spring 2023 and underwent preoperative evaluation and saw a few other multidisciplinary team members and completed lab work and imaging but then chickened out . She now had time to consider the surgical option and feels confident in her decision to pursue sleeve gastrectomy. Obesogenic Medications: NO Diet (please see BMI RD note) Reported quality of diet: mixed diet quality Emotional or mindless eating: No History of eating disorders: denies Exercise Active at home as a [id number] mom of 4 children Regular exercise: No, only sporadic exercise Barriers to regular exercise? None Stress test: no Functional status: Do heavy work around the house, such as scrubbing floors, lifting or moving heavy furniture (8.00 METs) Sleep JOANA NO ; CPAP NO Quality: adequate, Generally restful Duration: greater than 6 hours STOP BANG 1. Do you snore? No 2. Do you often feel tired, fatigued, or sleepy during the daytime? No 3. Has anyone observed you stop breathing during sleep? No 4. Do you have (or are you being treated for) high blood pressure? Yes 5. BMI >35? Yes 6. Age >50? No 7. Neck circumference > 40 cm (15.7 inches)? 17 inches (Yes) 8. Male gender? No STOP BANG = 12/20 - intermediate risk for moderate to severe JOANA Stress: (Please see BMI psychology note) PAST MEDICAL HISTORY Diagnosis Date Anxiety Hypertension PCOS (polycystic ovarian syndrome) No history of MT, or CVA. No history of T2DM or hypothyroidism. No history of asthma, COPD No history of CKD. No history of VTE. No personal or family history of hypercoagulable disorders. History of tobacco use for 15 years smoking 0.5-1 PPD, quit 5 years ago in 2019 Current Outpatient Medications Medication Sig Dispense Refill spironolactone (ALDACTONE) 50 mg tablet Take 50 mg by mouth every morning. (Patient not taking: Reported on 01/21/2025) No current facility-administered medications for this visit. Allergies: No Known Allergies No past surgical history on file. No problems with anesthesia with previous surgeries. Social History Tobacco Use Smoking status: Former Types: Cigarettes Smokeless tobacco: Former Tobacco comments: Quit 6 years ago Substance Use Topics Alcohol use: Not Currently Drug use: Never ROS: Respiratory: No history of cough, hemoptysis, asthma, recent chest infections, or wheezing. Cardiovascular: No history of chest pain, palpitations, orthopnea, cyanosis, or pedal edema. Gastrointestinal: No blood in stool, tarry stools, pain with BMs, persistent diarrhea or cons (more content not included)... Normal [facility] XR Chest PA and [facility] Basophils Auto (Bld) [#/Vol] Ordered By: FELY WOOD on 05-05-2022 Basophils (Bld) [#/Vol] 0.0 10*3/uL 0.0-0.2 [facility] Basophils/100 WBC Auto (Bld) Ordered By: FELY WOOD on 05-05-2022 Basophils/100 WBC (Bld) 0.3 % . [facility] Blood hemoglobin measurement (mass/volume)Ordered By: FELY WOOD on 05-05-2022 Hemoglobin (Bld) [Mass/Vol] 11.9 g/dL 11.8-15.4 [facility] Blood leukocytes automated c ount (number/volume)Ordered By: FELY WOOD on 05-05-2022 WBC (Bld) [#/Vol] 14.8 10*3/uL 4.5-11.0 [facility] Eosinophils Auto (Bld) [#/Vo l]Ordered By: FELY WOOD on 05-05-2022 Eosinophils (Bld) [#/Vol] 0.1 10*3/uL 0.0-0.45 [facility] Eosinophils/100 WBC Auto (Bl d)Ordered By: FELY WOOD on 05-05-2022 Eosinophils/100 WBC (Bld) 0.4 % . [facility] Erythrocyte distribution wid th Auto (RBC) [Ratio]Ordered By: FELY WOOD on 05-05-2022 Erythrocyte distribution width (RBC) [Ratio] 14.3 % 11.9-15.3 [facility] Hematocrit Auto (Bld) [Volum e fraction]Ordered By: FELY WOOD on 05-05-2022 Hematocrit (Bld) [Volume fraction] 35.6 % 34.0-46.4 [facility] Laboratory - Hematology and Cell countsOrdered By: FELY WOOD on 05-05-2022 Nucleated RBC/100 WBC (Bld) [Ratio] 0.0 % 0-0.5 [facility] Lymphocytes Auto (Bld) [#/Vo l]Ordered By: FELY WOOD on 05-05-2022 Lymphocytes (Bld) [#/Vol] 2.6 10*3/uL 1.00-4.8 [facility] Lymphocytes/100 WBC Auto (Bl d)Ordered By: FELY WOOD on 05-05-2022 Lymphocytes/100 WBC (Bld) 17.3 % . [facility] MCH Auto (RBC) [Entitic mass ]Ordered By: FELY WOOD on 05-05-2022 MCH (RBC) [Entitic mass] 28.0 pg 24.7-34.3 [facility] MCHC Auto (RBC) [Mass/Vol]Or dered By: FELY WOOD on 05-05-2022 MCHC (RBC) [Mass/Vol] 33.3 g/dL 32.0-35.0 [facility] MCV Auto (RBC) [Entitic vol] Ordered By: FELY WOOD on 05-05-2022 MCV (RBC) [Entitic vol] 84.0 fL 80-100 [facility] Monocytes Auto (Bld) [#/Vol] Ordered By: FELY WOOD on 05-05-2022 Monocytes (Bld) [#/Vol] 1.2 10*3/uL 0.0-0.8 [facility] Monocytes/100 WBC Auto (Bld) Ordered By: FELY WOOD on 05-05-2022 Monocytes/100 WBC (Bld) 8.0 % . [facility] Neutrophils Auto (Bld) [#/Vo l]Ordered By: FELY WOOD on 05-05-2022 Neutrophils (Bld) [#/Vol] 11.0 10*3/uL 1.8-7.7 [facility] Neutrophils/100 WBC Auto (Bl d)Ordered By: FELY WOOD on 05-05-2022 Neutrophils/100 WBC (Bld) 74.0 % . [facility] Platelet mean volume Auto (B ld) [Entitic vol]Ordered By: FELY WOOD on 05-05-2022 Platelet mean volume (Bld) [Entitic vol] 9.0 fL 6.3-10.7 [facility] Platelets Auto (Bld) [#/Vol] Ordered By: FELY WOOD on 05-05-2022 Platelets (Bld) [#/Vol] 239 10*3/uL 150-450 [facility] RBC Auto (Bld) [#/Vol]Ordere d By: FELY WOOD on 05-05-2022 RBC (Bld) [#/Vol] 4.23 10*6/uL 3.60-5.00 [facility] Amphetamine Screen Ql (U)Ord ered By: FELY WOOD on 05-04-2022 Amphetamines Ql (U) Negative Negative [facility] Barbiturates [Presence] in U rineOrdered By: FELY WOOD on 05-04-2022 Barbiturates Ql (U) Negative Negative [facility] Benzodiazepines [Presence] i n UrineOrdered By: FELY WOOD on 05-04-2022 Benzodiazepines Ql (U) Negative Negative [facility] Bilirubin Test strip Ql (U)O rdered By: FELY WOOD on 05-04-2022 Bilirubin Ql (U) Negative Negative [facility] COVID-19 SOFIAOrdered By: ABDOUL WOOD on 05-04-2022 SARS-CoV+SARS-CoV-2 (COVID-19) Ag IA.rapid Ql (Resp) Negative Negative [facility] Comment on above: This is a duplicate Jacqueline SARS Antigen (MALENA) result to be used for statistical tracking purpose only. Color Auto (U)Ordered By: ABDOUL WOOD on 05-04-2022 Color (U) Yellow Yellow [facility] Ketones Auto test strip (U) [Mass/Vol]Ordered By: FELY WOOD on 05-04-2022 Ketones (U) [Mass/Vol] 4+ Negative [facility] Laboratory - Drug toxicology Ordered By: FELY WOOD on 05-04-2022 Opiates Ql (U) Negative Negative [facility] Nitrite Test strip Ql (U)Ord ered By: FELY WOOD on 05-04-2022 Nitrite Ql (U) Negative Negative [facility] No Panel InformationOrdered By: FELY WOOD on 05-04-2022 SARS Antigen (LFIA) [facility] Phencyclidine Screen Ql (U)O rdered By: FELY WOOD on 05-04-2022 Phencyclidine Ql (U) Negative Negative [facility] Comment on above: These are unconfirme d results and should not be used for legal purposes. Drug Cut-Off Concentration: AMPH 1000 ng/mL ARCHIE 200 ng/mL VAIBHAV 200 ng/mL COCM 300 ng/mL OP 300 ng/mL PCP 25 ng/mL Protein Auto test strip (U) [Mass/Vol]Ordered By: FELY WOOD on 05-04-2022 Protein (U) [Mass/Vol] Negative Negative [facility] Reagin Ab [Presence] in Seru m by RPROrdered By: FELY WOOD on 05-04-2022 Reagin Ab RPR Ql (S) Non-Reactive Non Reactive [facility] Comment on above: Performed at: [address] [id number] Head Nurse: Mian Murcia PhD, Phone: [phone] Serum or plasma glucose radha urement (mass/volume)Ordered By: FELY WOOD on 05-04-2022 Glucose [Mass/Vol] 97 mg/dL 70-100 [facility] Comment on above: ADA recommended refe rence range Random Glucose Reference Range is dependent on time and content of last meal. Glucose of more than 200 mg/dL in a nonstressed, ambulatory subject supports the diagnosis of Diabetes Mellitus. Specific gravity Auto test s trip (U) [Rel density]Ordered By: FELY WOOD on 05-04-2022 Specific gravity (U) [Rel density] 1.021 1.001-1.03 0 [facility] Urine clarity by refractomet ry automatedOrdered By: FELY WOOD on 05-04-2022 Clarity Refractometry automated (U) Clear Clear [facility] Urine cocaine detectionOrder ed By: FELY WOOD on 05-04-2022 Cocaine Ql (U) Negative Negative [facility] Urine glucose measurement by automated test strip (mass/volume)Ordered By: FELY WOOD on 05-04-2022 Glucose Auto test strip (U) [Mass/Vol] Normal mg/dL Normal [facility] Urine hemoglobin detection b y automated test stripOrdered By: FELY WOOD on 05-04-2022 Hemoglobin Auto test strip Ql (U) Negative Negative [facility] Urine leukocyte esterase det ection by automated test stripOrdered By: FELY WOOD on 05-04-2022 Leukocyte esterase Auto test strip Ql (U) Negative Negative [facility] Urobilinogen Auto test strip (U) [Mass/Vol]Ordered By: FELY WOOD on 05-04-2022 Urobilinogen (U) [Mass/Vol] Normal mg/dL Normal [facility] pH Auto test strip (U)Ordere d By: FELY WOOD on 05-04-2022 pH (U) 6.0 [pH] 5.0-9.0 [facility] S. agalactiae Org specific c x Ql (Unsp spec)Ordered By: Yumiko Brown on 04-16-2022 Group B Streptococcus Culture Strep. agalactiae Grp B [facility] GTT 3 HR PREGon 02-27-2022 Glucose [Mass/Vol] 110 mg/dL Critically high 74-106 T [facility] Comment on above: Performed By: #### G TT3P #### [facility] [address] [address] [address] Vianca Goel Glucose [Mass/Vol] 165 mg/dL Normal [facility] Comment on above: Performed By: #### G TT3P #### [facility] [address] [address] [address] Vianca Goel Glucose [Mass/Vol] 125 mg/dL Normal [facility] Comment on above: Performed By: #### G TT3P #### [facility] [address] [address] [address] Vianca Goel Glucose [Mass/Vol] 100 mg/dL Normal [facility] Comment on above: Performed By: #### G TT3P #### [facility] [address] [address] [address] Vianca Goel Glucose - Gestational Screen on 02-17-2022 Glucose [Mass/Vol] 164 mg/dL High <135 [facility] [employer] Comment on above: Result Comment: A va lue of 135 mg/dL or greater indicates the need for a full glucose tolerance test performed in the fasting state to determine if the patient has gestational diabetes. Performed By: #### H GB/HCT, GGLU #### [facility] [address] [place], [place] [id number] HGB/HCTon 02-17-2022 Hematocrit (Bld) [Volume fraction] 37.4 % Normal 35.0-47.0 [facility] [employer] Comment on above: Performed By: #### H GB/HCT, GGLU #### [facility] [address] [facility] [place] [id number] Hemoglobin (Bld) [Mass/Vol] 12.2 g/dL Normal 11.6-15.5 [facility] [employer] Comment on above: Performed By: #### H GB/HCT, GGCONCEPCION #### [facility] [address] [place], [place] [id number] CBCon 01-14-2021 Erythrocyte distribution width (RBC) [Ratio] 14.7 % High 11.5 - 14.5 % [employer] Phone: Hematocrit (Bld) [Volume fraction] 39.3 % 37.0 - 47.0 % [employer] Phone: Hemoglobin (Bld) [Mass/Vol] 13.0 g/dL 12.0 - 16.0 g/dL [employer] Phone: Interpretation and review of laboratory results Abnormal [employer] Phone: MCH (RBC) [Entitic mass] 28.1 pg 27.0 - 31.3 pg [employer] Phone: MCHC (RBC) [Mass/Vol] 33.0 % 33.0 - 37.0 % [employer] Phone: MCV (RBC) [Entitic vol] 85.2 fL 82.0 - 100.0 fL [employer] Phone: Platelets (Bld) [#/Vol] 214 10*3/uL 130 - 400 K/uL [employer] Phone: RBC (Bld) [#/Vol] 4.61 10*6/uL [employer] Phone: WBC (Bld) [#/Vol] 12.8 10*3/uL High 4.8 - 10.8 K/uL [employer] Phone: CBC With Platelet No Differe ntialon 01-14-2021 Erythrocyte distribution width (RBC) [Ratio] 14.7 % Critically high 11.5-14.5 [facility] Comment on above: Performed By: #### C BCND #### [facility] [address] [place] [address] Hematocrit (Bld) [Volume fraction] 39.3 % Normal 37.0-47.0 [facility] Comment on above: Performed By: #### C BCND #### [facility] [address] [place] [address] Hemoglobin (Bld) [Mass/Vol] 13.0 g/dL Normal 12.0-16.0 [facility] Comment on above: Performed By: #### C BCND #### [facility] [address] [place] [address] MCH (RBC) [Entitic mass] 28.1 pg Normal 27.0-31.3 [facility] Comment on above: Performed By: #### C BCND #### [facility] [address] [place] [address] MCHC (RBC) [Mass/Vol] 33.0 % Normal 33.0-37.0 [facility] Comment on above: Performed By: #### C BCND #### [facility] [address] [place] [address] MCV (RBC) [Entitic vol] 85.2 fL Normal 82.0-100.0 [facility] Comment on above: Performed By: #### C BCND #### [facility] [address] [place] [address] Platelets (Bld) [#/Vol] 214 10*3/uL Normal 130-400 [facility] Comment on above: Performed By: #### C BCND #### [facility] [address] [place] [address] RBC (Bld) [#/Vol] 4.61 10*6/uL Normal 4.20-5.40 [facility] Comment on above: Performed By: #### C BCND #### [facility] [address] [place] [address] WBC (Bld) [#/Vol] 12.8 10*3/uL Critically high 4.8-10.8 [facility] Comment on above: Performed By: #### C BCND #### [facility] [address] [place] [address] RPRon 01-13-2021 Reagin Ab RPR Ql (S) Non-reactive Normal Non-reacti Me [facility] Comment on above: Performed By: #### R NV #### [facility] [address] [place] [address] Reagin Ab RPR Ql (S) Non-reactive Non-jyoti cti ve [facility] [employer] Phone: CBC With Platelet and Differ entialon 01-12-2021 Basophils (Bld) [#/Vol] 0.0 10*3/uL Normal 0.0-0.2 [facility] Comment on above: Performed By: #### C BCWD #### [facility] [address] [place] [address] Basophils/100 WBC (Bld) 0.3 % Normal [facility] Comment on above: Performed By: #### C BCWD #### [facility] [address] [place] [address] Eosinophils (Bld) [#/Vol] 0.1 10*3/uL Normal 0.0-0.7 [facility] Comment on above: Performed By: #### C BCWD #### [facility] [address] [place] [address] Eosinophils/100 WBC (Bld) 1.0 % Normal [facility] Comment on above: Performed By: #### C BCWD #### [facility] [address] [place] [address] Erythrocyte distribution width (RBC) [Ratio] 14.4 % Normal 11.5-14.5 [facility] Comment on above: Performed By: #### C BCWD #### [facility] [address] [place] [address] Hematocrit (Bld) [Volume fraction] 41.1 % Normal 37.0-47.0 [facility] Comment on above: Performed By: #### C BCWD #### [facility] [address] [place] [address] Hemoglobin (Bld) [Mass/Vol] 13.6 g/dL Normal 12.0-16.0 [facility] Comment on above: Performed By: #### C BCWD #### [facility] [address] [place] [address] Lymphocytes (Bld) [#/Vol] 2.0 10*3/uL Normal 1.0-4.8 [facility] Comment on above: Performed By: #### C BCWD #### [facility] [address] [place] [address] Lymphocytes/100 WBC (Bld) 21.1 % Normal [facility] Comment on above: Performed By: #### C BCWD #### [facility] [address] [place] [address] MCH (RBC) [Entitic mass] 28.5 pg Normal 27.0-31.3 [facility] Comment on above: Performed By: #### C BCWD #### [facility] [address] [place] [address] MCHC (RBC) [Mass/Vol] 33.1 % Normal 33.0-37.0 [facility] Comment on above: Performed By: #### C BCWD #### [facility] [address] [place] [address] MCV (RBC) [Entitic vol] 85.9 fL Normal 82.0-100.0 [facility] Comment on above: Performed By: #### C BCWD #### [facility] [address] [place] [address] Monocytes (Bld) [#/Vol] 0.7 10*3/uL Normal 0.2-0.8 [facility] Comment on above: Performed By: #### C BCWD #### [facility] [address] [place] [address] Monocytes/100 WBC (Bld) 7.5 % Normal [facility] Comment on above: Performed By: #### C BCWD #### [facility] [address] [place] [address] Neutrophils (Bld) [#/Vol] 6.7 10*3/uL Critically high 1.4-6.5 [facility] Comment on above: Performed By: #### C BCWD #### [facility] [address] [place] [address] Neutrophils/100 WBC (Bld) 70.1 % Normal [facility] Comment on above: Performed By: #### C BCWD #### [facility] [address] [place] [address] Platelets (Bld) [#/Vol] 253 10*3/uL Normal 130-400 [facility] Comment on above: Performed By: #### C BCWD #### [facility] [address] [place] [address] RBC (Bld) [#/Vol] 4.79 10*6/uL Normal 4.20-5.40 [facility] Comment on above: Performed By: #### C BCWD #### [facility] [address] [place] [address] WBC (Bld) [#/Vol] 9.6 10*3/uL Normal 4.8-10.8 [facility] Comment on above: Performed By: #### C BCWD #### [facility] [address] [place] [address] CBC auto differentialon 03-3 Basophils (Bld) [#/Vol] 0.0 10*3/uL 0.0 - 0.2 K/uL [facility] [email or web address] Phone: Basophils/100 WBC (Bld) 0.3 % [employer] Phone: Eosinophils (Bld) [#/Vol] 0.1 10*3/uL 0.0 - 0.7 K/uL [employer] Phone: Eosinophils/100 WBC (Bld) 1 % [employer] Phone: Erythrocyte distribution width (RBC) [Ratio] 14.4 % 11.5 - 14.5 % [employer] Phone: Hematocrit (Bld) [Volume fraction] 41.1 % 37.0 - 47.0 % [employer] Phone: Hemoglobin (Bld) [Mass/Vol] 13.6 g/dL 12.0 - 16.0 g/dL [employer] Phone: Interpretation and review of laboratory results Abnormal [employer] Phone: Lymphocytes (Bld) [#/Vol] 2.0 10*3/uL 1.0 - 4.8 K/uL [employer] Phone: Lymphocytes/100 WBC (Bld) 21.1 % [employer] Phone: MCH (RBC) [Entitic mass] 28.5 pg 27.0 - 31.3 pg [employer] Phone: MCHC (RBC) [Mass/Vol] 33.1 % 33.0 - 37.0 % [employer] Phone: MCV (RBC) [Entitic vol] 85.9 fL 82.0 - 100.0 fL [employer] Phone: Monocytes (Bld) [#/Vol] 0.7 10*3/uL 0.2 - 0.8 K/uL [employer] Phone: Monocytes/100 WBC (Bld) 7.5 % [employer] Phone: Neutrophils Absolute 6.7 K/uL High 1.4 - 6 .5 K/uL [employer] Phone: Neutrophils/100 WBC (Bld) 70.1 % [employer] Phone: Platelets (Bld) [#/Vol] 253 10*3/uL 130 - 400 K/uL [employer] Phone: RBC (Bld) [#/Vol] 4.79 10*6/uL [employer] Phone: WBC (Bld) [#/Vol] 9.6 10*3/uL 4.8 - 10.8 K/uL [employer] Phone: COVID-19on 01-12-2021 COVID-19, NAAT Not Detected Normal Not Detect [facility] Comment on above: Result Comment: Marley rahman NAAT: Negative results should be treated as [...] authorized laboratories. Fact sheet for Healthcare Providers: https://www.fda.gov/media/572510/download Fact sheet for Patients: https://www.fda.gov/media/402693/download METHODOLOGY: Isothermal Nucleic Acid Amplification Performed By: #### C OVRG #### [facility] [address] [address] COVID-19, Rapidon 01-12-2021 SARS-CoV-2, NAAT Not Detected Not Detected [employer] Phone: Comment on above: Rapid NAAT: Negative [...] authorized laboratories. Fact sheet for Healthcare Providers: https://www.fda.gov/media/546485/download Fact sheet for Patients: https://www.fda.gov/media/288385/download METHODOLOGY: Isothermal Nucleic Acid Amplification Comprehensive Metabolic Pane rosario 01-12-2021 Anion gap [Moles/Vol] 12 mmol/L Normal 9-15 [facility] Comment on above: Performed By: #### C MP ####[facility] [phone] Albumin [Mass/Vol] 3.3 g/dL Low 3.5-4.6 [facility] Comment on above: Performed By: #### C MP ####[facility] [place] [phone] ALP [Catalytic activity/Vol] 118 U/L Normal 40-130 [facility] Comment on above: Performed By: #### C MP ####[facility] [place] [phone] ALT [Catalytic activity/Vol] 20 U/L Normal 0-33 [facility] Comment on above: Performed By: #### C MP ####[facility] [place] [phone] AST [Catalytic activity/Vol] 30 U/L Normal 0-35 [facility] Comment on above: Performed By: #### C MP ####[facility] [place] [phone] Bilirubin [Mass/Vol] 0.5 mg/dL Normal 0.2-0.7 [facility] Comment on above: Performed By: #### C MP ####[facility] [facility] [place] [phone] Calcium [Mass/Vol] 9.0 mg/dL Normal 8.5-9.9 [facility] Comment on above: Performed By: #### C MP ####[facility] [place] [phone] Chloride [Moles/Vol] 107 mmol/L Normal 95-107 [facility] Comment on above: Performed By: #### C MP ####[facility] [place] [phone] CO2 [Moles/Vol] 17 mmol/L Low 20-31 [facility] Comment on above: Performed By: #### C MP ####[facility] [facility] [phone] Creatinine [Mass/Vol] 0.40 mg/dL Low 0.50-0.90 [facility] Comment on above: Performed By: #### C MP ####[facility] [facility] [phone] GFR/1.73 sq M predicted among blacks MDRD (S/P/Bld) [Vol rate/Area] mL/min/{1.73_m2} Normal >60 [facility] Comment on above: Result Comment: >60 mL/min/1.73m2 EGFR, calc. for ages 18 and older using the MDRD formula (not corrected for weight), is valid for stable renal function. Performed By: #### C MP ####[facility] [facility] [phone] GFR/1.73 sq M.predicted MDRD (S/P/Bld) [Vol rate/Area] mL/min/{1.73_m2} Normal >60 [facility] Comment on above: Result Comment: >60 mL/min/1.73m2 EGFR, calc. for ages 18 and older using the MDRD formula (not corrected for weight), is valid for stable renal function. Performed By: #### C MP ####[facility] [facility] [phone] Globulin (S) [Mass/Vol] 3.3 g/dL Normal 2.3-3.5 [facility] Comment on above: Performed By: #### C MP ####[facility] [facility] [phone] Glucose [Mass/Vol] 75 mg/dL Normal 70-99 [facility] Comment on above: Performed By: #### C MP ####[facility] [place] [phone] Potassium [Moles/Vol] 4.0 mmol/L Normal 3.4-4.9 [facility] Comment on above: Performed By: #### C MP ####[facility] [facility] [phone] Protein [Mass/Vol] 6.6 g/dL Normal 6.3-8.0 [facility] Comment on above: Performed By: #### C MP ####[facility] [facility] [phone] Sodium [Moles/Vol] 136 mmol/L Normal 135-144 [facility] Comment on above: Performed By: #### C MP ####[facility] [facility] [phone] Urea nitrogen [Mass/Vol] 9 mg/dL Normal 6-20 [facility] Comment on above: Performed By: #### C MP ####[facility] [facility]Mass[facility] [phone] Comprehensive metabolic pane rosario 01-12-2021 Albumin [Mass/Vol] 3.3 g/dL Low 3.5 - 4.6 g/dL [employer] Phone: ALP [Catalytic activity/Vol] 118 U/L 40 - 130 U/L [employer] Phone: ALT [Catalytic activity/Vol] 20 U/L 0 - 33 U/L [employer] Phone: Anion gap [Moles/Vol] 12 mmol/L [employer] Phone: AST [Catalytic activity/Vol] 30 U/L 0 - 35 U/L [employer] Phone: Bilirubin Ql (U) 0.5 mg/dL 0.2 - 0.7 mg/dL [employer] Phone: Calcium [Mass/Vol] 9.0 mg/dL 8.5 - 9.9 mg/dL [employer] Phone: Chloride [Moles/Vol] 107 mmol/L [employer] Phone: CO2 [Moles/Vol] 17 mmol/L Low [employer] Phone: Creatinine [Mass/Vol] 0.4 mg/dL Low 0.50 - 0.90 mg/dL [employer] Phone: GFR >60.0 >60 [employer] Phone: Comment on above: >60 mL/min/1.73m2 EG FR, calc. for ages 18 and older using the MDRD formula (not corrected for weight), is valid for stable renal function. GFR Non- >60.0 >60 [employer] Phone: Comment on above: >60 mL/min/1.73m2 EG FR, calc. for ages 18 and older using the MDRD formula (not corrected for weight), is valid for stable renal function. Globulin (S) [Mass/Vol] 3.3 g/dL 2.3 - 3.5 g/dL [employer] Phone: Glucose [Mass/Vol] 75 mg/dL 70 - 99 mg/dL [employer] Phone: Interpretation and review of laboratory results Abnormal [employer] Phone: Potassium [Moles/Vol] 4.0 mmol/L [employer] Phone: Protein [Mass/Vol] 6.6 g/dL 6.3 - 8.0 g/dL [employer] Phone: Sodium [Moles/Vol] 136 mmol/L [employer] Phone: Urea nitrogen [Mass/Vol] 9 mg/dL 6 - 20 mg/dL [employer] Phone: Drug screen multi urineon Amphetamine Screen, Urine Negative Negative <1000 ng/mL [employer] Phone: Barbiturate Screen, Ur Negative Negative < 200 ng/mL [employer] Phone: Benzodiazepine Screen, Urine Negative Negative < 200 ng/mL [employer] Phone: Cannabinoid Scrn, Ur Negative Negativ e < 50 ng/mL [employer] Phone: Cocaine Metabolite Screen, Urine Negative Negative < 300 ng/mL [employer] Phone: Drug Screen Comment: see below [employer] Phone: Comment on above: This method is a scr eening test to detect only these drug classes as part of a medical workup. Confirmatory testing by another method should be ordered if clinically indicated. Methadone Screen, Urine Negative Negative <300 ng/mL [employer] Phone: Opiate Scrn, Ur Negative Negative < 300 ng/mL [employer] Phone: Oxycodone Urine Negative Negative <100 ng/mL [employer] Phone: PCP Screen, Urine Negative Negative < 25 ng/mL [employer] Phone: Propoxyphene Scrn, Ur Negative Negative <300 ng/mL [employer] Phone: Hepatitis B Surface Agon Hepatitis B Surface Ag Interp Non-reactive Normal [facility] Comment on above: Performed By: #### H BSG ####[facility] [place] [phone] Hepatitis B Surface Antigeno n 01-12-2021 Hep B S Ag Interp Non-reactive [employer] Phone: Microscopic Urinalysison Bacteria, UA Negative Negative /HPF [employer] Phone: Epithelial Cells, UA 0-2 [employer] Phone: Hyaline Casts, UA 0-1 [employer] Phone: Interpretation and review of laboratory results Abnormal [employer] Phone: RBC (U) [#/Vol] 50-100 Abnormal [employer] Phone: WBC, UA 3-5 [employer] Phone: Rubella Ab, IgGon 01-12-2021 Rubella Ab, IgG 5.7 IU/mL Normal [facility] Comment on above: Result Comment: Equi vocal results repeat testing in 10-14 days maybe helpful. Default Normal Ranges >=10 Presumed Immune <10 Presumed Not immune Performed By: #### R UBEL #### [facility] [address] [place] [address] Rubella antibody, IgGon 12-15 Rubella Antibody IgG 5.7 IU/mL [employer] Phone: Comment on above: Equivocal results re peat testing in 10-14 days maybe helpful. Default Normal Ranges >=10 Presumed Immune <10 Presumed Not immune TYPE AND SCREENon 01-12-2021 ABO/Rh Positive [employer] Phone: Type and Screen Capture 3 sc rn cellon 01-12-2021 Type and Screen Capture 3 scrn cell PATIENT: ANTHONY Nelson LOC: [facility], BILL# : [id number] : 1995 SEX: F ORDERED BY: JARON JIMENEZ ORDERED : 01/12/2021 19:34 COLLECTED: 01/12/2021 20:39 ORDER : [id number] RECEIVED : 01/12/2021 20:39 TEST NAME RESULT UNITS RANGES ABN FL ST ABOR Capture O POS F Antibody 3 Cell Scrn Captu NEG F Normal [facility] Comment on above: Performed By: #### T S3C #### [facility] [address] [place] [address] UR Drugs of Abuse Panelon Drug Screen Comment see below Normal [facility] Comment on above: Result Comment: This method is a screening test to detect only these drug classes as part of a medical workup. Confirmatory testing by another method should be ordered if clinically indicated. Performed By: #### U DRGS ####[facility] [facility] [place] [phone] UR Amphetamines Screen Negative Normal Negative < [facility] Comment on above: Performed By: #### U DRGS ####[facility] [place] [phone] UR Barbiturates Screen Negative Normal Negative < [facility] Comment on above: Performed By: #### U DRGS ####[facility] [place] [phone] UR Benzo Screen Negative Normal Negative < [facility] Comment on above: Performed By: #### U DRGS ####[facility] [facility] [place] [phone] UR Cannabinoids Screen Negative Normal Negative < [facility] Comment on above: Performed By: #### U DRGS ####[facility] [place] [phone] UR Cocaine Screen Negative Normal Negative < [facility] Comment on above: Performed By: #### U DRGS ####[facility] [place] [phone] UR Methadone Screen Negative Normal Negative < [facility] Comment on above: Performed By: #### U DRGS ####[facility] [place] [phone] UR Opiates Screen Negative Normal Negative < [facility] Comment on above: Performed By: #### U DRGS ####[facility] [place] [phone] UR Oxycodone Screen Negative Normal Negative < [facility] Comment on above: Performed By: #### U DRGS ####[facility] [facility] [place] [phone] UR PCP Screen Negative Normal Negative < [facility] Comment on above: Performed By: #### U DRGS ####[facility] [place] [phone] UR Propoxyphene Screen Negative Normal Negative < [facility] Comment on above: Performed By: #### U DRGS ####[facility] [place] [phone] Urinalysison 01-12-2021 Bilirubin Urine Negative Negative [employer] Phone: Blood, Urine LARGE Abnormal Negative [employer] Phone: Clarity, UA Clear Clear [employer] Phone: Color, UA Yellow Straw/Stewart ow [employer] Phone: Glucose, Ur Negative Negative mg/dL [employer] Phone: Interpretation and review of laboratory results Abnormal [employer] Phone: Ketones Ql (U) Negative Negative mg/dL [employer] Phone: Leukocyte esterase Test strip Ql (U) Negative Negative [employer] Phone: Nitrite, Urine Negative Negative [employer] Phone: pH, UA 6.0 [employer] Phone: Protein (U) [Mass/Vol] Negative Negative mg/dL [employer] Phone: Specific [place], UA 1.020 [employer] Phone: Urobilinogen, Urine 0.2 <2.0 E.U./dL [employer] Phone: Urinalysis, reflex to micros copicon 01-12-2021 Bilirubin Ql (U) Negative Normal Negative [facility] Comment on above: Performed By: #### U A #### [facility] [address] [place] [address] Clarity (U) Clear Normal Clear [facility] Comment on above: Performed By: #### U A #### [facility] [address] [place] [address] Color (U) Yellow Normal Straw/Stewart [facility] Comment on above: Performed By: #### U A #### [facility] [address] [place] [address] Glucose Ql (U) Negative Normal Negative [facility] Comment on above: Performed By: #### U A #### [facility] [address] [place] [address] Hemoglobin Ql (U) LARGE Abnormal Negative [facility] Comment on above: Performed By: #### U A #### [facility] [address] [place] [address] Ketones Ql (U) Negative Normal Negative [facility] Comment on above: Performed By: #### U A #### [facility] [address] [place] [address] Leukocyte esterase Test strip Ql (U) Negative Normal Negative [facility] Comment on above: Performed By: #### U A #### [facility] [address] [place] [address] Nitrite Ql (U) Negative Normal Negative [facility] Comment on above: Performed By: #### U A #### [facility] [address] [place] [address] pH (U) 6.0 [pH] Normal 5.0-9.0 [facility] Comment on above: Performed By: #### U A #### [facility] [address] [place] [address] Protein Ql (U) Negative Normal Negative [facility] Comment on above: Performed By: #### U A #### [facility] [address] [place] [address] Specific gravity (U) [Rel density] 1.020 Normal 1.005-1.03 [facility] Comment on above: Performed By: #### U A #### [facility] [address] [place] [address] Urobilinogen Qn (U) 0.2 {Paulie'U}/dL Normal < 2.0 [facility] Comment on above: Performed By: #### U A #### [facility] [address] [place] [address] Urine Microscopicon 01-13-20 21 Bacteria LM.HPF (Urine sed) [#/Area] Negative Normal Negative [facility] Comment on above: Performed By: #### U CARROLL #### [facility] [address] [place] [address] RBC (U) [#/Vol] 50-100 Abnormal 0-5 [facility] Comment on above: Performed By: #### U CARROLL #### [facility] [address] [place] [address] Urine Epithelial Cells Auto 0-2 Normal 0-5 [facility] Comment on above: Performed By: #### U CARROLL #### [facility] [address] [place] [address] Urine Hyaline Casts Auto 0-1 Normal 0-5 [facility] Comment on above: Performed By: #### U CARROLL #### [facility] [address] [place] [address] Urine WBC Auto 3-5 Normal 0-5 [facility] Comment on above: Performed By: #### U CARROLL #### [facility] [address] [place] [address] COVID-19, NAAon 01-05-2021 COVID-19, LARISA Not Detected Normal Not Detect [facility] Comment on above: Result Comment: This nucleic acid amplification test was developed and its performance characteristics determined by [employer]. Nucleic acid amplification tests include RT-PCR and [...] detected) result in this assay. Performed at: [address] [id number] Head Nurse: Mian Murcia PhD, Phone: [phone] Performed By: #### T SH #### [facility] [address] [place] [address] COVID-19, NAAon 01-04-2021 Source Swab Anterior nares Normal [facility] Comment on above: Performed By: #### T #### [facility] [address] [facility] [address] Culture, Group B Strepon Culture, Group B [...] have not been identified. (CLSI M100) Normal [facility] Comment on above: Performed By: #### T SH #### [facility] [address] [facility] [address] Otheron 11-04-2020 ULTRASOUND CONFIRMS A SINGLE LIVING INTRAUTERINE AT 29 WEEKS 5 DAYS +/- 3 WEEKS. ADDITIONAL DATING PARAMETERS AND LIMITATIONS DETAILED ABOVE. [place], [place] Sonogram #: 1 Presentation: Cephalic GS: CRL: [...] heart rate of 128 bpm is documented. [facility]- [place], [place] Jens, Chpo Incoming R adiant Results From [facility] - 11/04/2020 5:03 PM EST Sonogram #: [...] ADDITIONAL DATING PARAMETERS AND LIMITATIONS DETAILED ABOVE. [place], [place] US OB 1 OR MORE FETUS [...] Lauren Winters MD 11/04/[address] [facility] US OB TRANSVAGINALon 11-04- 021 US OB TRANSVAGINAL Sonogram #: 1 [...] Lauren Winters MD 11/04/[address] [facility] Glucose 1hr PPon 10-06-2020 Glucose [Mass/Vol] 100 mg/dL Normal 60-140 [facility] Comment on above: Result Comment: Gluc ose tolerance is IMPAIRED when the 1 hour post 50 gram load glucose is greater than 130mg/dL Performed By: #### T SH #### [facility] [address] [facility] [address] Hemoglobin and Hematocriton 10-06-2020 Hematocrit (Bld) [Volume fraction] 34.3 % Low 37.0-47.0 [facility] Comment on above: Performed By: #### T SH #### [facility] [address] [facility] [address] Hemoglobin (Bld) [Mass/Vol] 11.8 g/dL Low 12.0-16.0 [facility] Comment on above: Performed By: #### T SH #### [facility] [address] [facility] [address] US OB 14 PLUS WEEKS SINGLE O R FIRST GESTATIONon 09-07-2020 INR Coag (Bld) [Relative time] APPROPRIATE INTERVAL GROWTH. [place], [place] Sonogram #: 1 Presentation: Variable GS: CRL: [...] 6 days compatible with appropriate interval growth. [facility] MD Jens, Chpo Incoming R adiant Results From [facility] - 09/07/2020 5:26 PM EST Sonogram #: [...] appropriate interval growth. IMPRESSION: APPROPRIATE INTERVAL GROWTH. [facility] 14 PLUS WEEKS SINGLE O [...] Alcon Bernal MD 09/07/[address] [facility] Non-Invasive Testin g for Aneuploidyon 08-23-2020 EER Non-Invasive , Aneuploidy See Note Normal [facility] Comment on above: Result Comment: Jon pacheco [employer] Enhanced Report using the link below: -Direct access: [email or web address] Performed by [facility], [address] [place] [id number] [email or web address], Nafisa Hilton MD - Lab. Director Performed By: #### 0 3521 #### [facility] [address] [facility] [address] Fraction 7.7 % Normal [facility] Comment on above: Performed By: #### 0 3719 #### [facility] [address] [place] [address] Fetus Gender Female Normal [facility] Comment on above: Performed By: #### 0 6728 #### [facility] [address] [place] [address] Monosomy X Low Risk Normal [facility] Comment on above: Performed By: #### 0 7537 #### [facility] [address] [place] [address] Result Summary See Notes Normal [facility] Comment on above: Result Comment: LOW RISK Performed By: #### 0 1362 #### [facility] [address] [place] [address] Triploidy/Vanishing Twin Low Risk Normal [facility] Comment on above: Performed By: #### 0 8058 #### [facility] [address] [place] [address] Trisomy [address] [facility] Comment on above: Performed By: #### 0 0074 #### [facility] [address] [place] [address] Trisomy [address] [facility] Comment on above: Performed By: #### 0 3237 #### [facility] [address] [place] [address] Trisomy [address] [facility] Comment on above: Performed By: #### 0 6136 #### [facility] [address] [place] [address] Cystic Fibrosis, 165 Variant son 08-17-2020 Cystic Fibrosis 5T Variant Not Applicable Normal [facility] Cystic Fibrosis [place] [address] [facility] Cystic Fibrosis [place] [address] [facility] Cystic Fibrosis,165 Variants Interp [address] [facility] Comment on above: Result Comment: None of [...] 1 in 61 1 in 275 Ashkenazi Evangelical 96% 1 in 24 1 in 575 Malagasy 55% 1 in 94 1 in 210 92% 1 in 25 1 in 300 Malagasy 80% 1 in 58 1 in 285 [...] or bronchiectasis. INCIDENCE: 1 in 2,300 Ashkenazi Evangelical, 1 in 2,500 Caucasians, 1 in 13,500 [...] for the 23 recommended ACMG variants. c.1A>G, p.Pjg9Yjw; c.22-6203_799+03410iib, Exons 2-3del; c.115C>T, p.Gln39X; c.178G>T, p.Glu60X; c.200C>T, p.Ehy42Lni; c.223C>T, p.Arg75X; c.254G>A ([employer] G85E), p.Wse06Gmk; c.262_263delTT, p.Wnx26RlpweK96 (aka p.Jct55pd); c.273+1G>A, Intronic; c.273+3A>C, Intronic; c.274-1G>A, Intronic; c.274G>A, p.Uyr94Dmb; c.274G>T, p.Glu92X; c.292C>T, p.Gln98X; c.313delA, p.Vxg900ZwpeaJ7 (aka p.Ymt318pe); c.325_327delTATinsG, p.Cfq874EbqdaI6 (aka p.Wcz058oq); c.328G>C, p.Wrd132Erm; c.349C>T, p.Lwz029Pqp; c.350G>A ([employer] R117H), p.Gvd046Eud; c.366T>A, p.Hke761T; c.442delA, p.Bhy521VkkmvZ2 (aka p.Wrp988of); c.489+1G>T (Legacy 621+1G>T), Intronic; c.531delT, p.Tjb641RmatkA28 (aka p.Mgj010gv); c.532G>A, p.Vlw100Bbv; c.579+1G>T (Legacy 711+1G>T), Intronic; c.579+5G>A, Intronic; c.579+3A>G, Intronic; c.580-1G>T, Intronic; c.595C>T, p.Zew075Los; c.613C>T, p.Gye018Daj; c.617T>G, p.Bcu237Zuh; c.658C>T, p.Mrr307G; c.680T>G, p.Hfb725Qkh; c.720_741delAGGGAGAATGATGATGAAGTAC, p.Khw944JeqskB87 (aka p.Uhc955nc); c.803delA, p.Tec658XlovzS54 (aka p.Xew792vq); c.805_806delAT, p.Fqf612ZxpeuN0 (aka p.Cun116kd); c.933_935delCTT, p.Ykt787qsb; c.948delT, p.Zap276VxznyX69 (aka p.Jxa722od); c.988G>T, p.Bss070H; c.1000C>T ([employer]acy R334W), p.Jvf415Xea; c.1007T>A, p.Hsj268Zte; c.1021T>C, p.Cmw481Sck; c.1022_1023insTC, p.Rvr914TiqgbB16 (aka p.Hvz638dz); c.1040G>A, p.Fat429Npz; c.1040G>C (Legacy R347P), p.Iny380Tzp; c.1055G>A, p.Ygu774Dgt; c.1081delT, p.Zuu133BltarH6 (aka p.Ggx446ho); c.1116+1G>A, Intronic; c.1127_1128insA, p.Bpw897TnknbV8 (aka p.Vqk063oz); c.1153_1154insAT, p.Nww814BzsasN0 (aka p.Gtu843cm); c.1202G>A, p.Qck340E; c.1203G>A, p.Hlr895B; c.1209+1G>A, Intronic; c.1329_1330insAGAT, p.Kpr526UvdbnA8 (aka p.Fue506jl); c.1340delA, p.Pwl325HzuffQ3 (aka p.Zgr226hl); c.1364C>A (Legacy A455E), p.Qdd574Zwa; c.1393-1G>A, Intronic; c.1397C>A, p.Xox781J; c.1397C>G, p.Nit401C; c.1400T>C, p.Mwl305Bpc; c.1418delG, p.Yfn016AikhlU61 (aka p.Lgt538kk); c.1438G>T, p.Utt754Czz; c.1466C>A, p.Cjb558K; c.1475C>T, p.Qkt920Bcz; c.1477C>T, p.Mju534E; c.1519_1521delATC (Legacy Y283sjp), p.Rab634fqg; c.1521_1523delCTT (Legacy E980tjp), p.Kwr726ikv; c.1545_1546delTA, p.Ecn532V; c.1558G>T, p.Kfo577Kog; c.1572C>A, p.Znr591J; c.1573C>T, p.Qyh125R; c.1585-1G>A (Legacy 1717-1G>A), Intronic; c.1585-8G>A, Intronic; c.1624G>T (Legacy G542X), p.Cag736V; c.1645A>C, p.Zia803Kbf; c.1646G>A, p.Txl274Ysy; c.1647T>G, p.Vnl190Kgc; c.1651G>A, p.Jvt483Oci; c.1652G>A (Legacy G551D), p.Jxs754Gwd; c.1654C>T, p.Heo951R; c.1657C>T (Legacy R553X), p.Gpv756C; c.1675G>A, p.Kkx740Iek; c.1679G>A, p.Smz738Aoc; c.1679G>C (Legacy R560T), p.Gld574Ocy; c.1679+1.6kbA>G, Intronic; c.1680-1G>A, Intronic; c.1703delT, p.May522UwqpoG7 (aka p.Iwc438qu); c.1705T>G, p.Ypj728Hyp; c.1721C>A, p.Vjt596Eze; c.1753G>T, p.Kuo706P; c.1766+1G>A (Legacy 1898+1G>A), Intronic; c.1766+3A>G, Intronic; c.1792_1798delAAAACTA, p.Ubj608KroxfI73 (aka p.Rln020pl); c.1911delG, p.Huk192FpbkaP61 (aka p.Vgw432hc); c.1923_1931del9insA, p.Tho083ScnkvM8 (aka p.Mib462jg); c.del13insAGAAA, p.Ppf381HpfzlB1 (aka p.Slu853jo); c.1975delA, p.Odv447AlpjrX2 (aka p.Twr127ak); c.2011delT, p.Qpk948L; c.2050_2del, p.Txh681MwwubT2; c.2050_elinsG (aka c.205_elinsG), p.Ahd895ElxeqT09; c.2delA (Legacy 2184delA), p.Tus399GwyjxW71; c.2125C>T, p.Vfp585Q; c.2128A>T, p.Gyv338U; c.2175_2176insA, p.Oyc290QtlfpK9 (aka p.Ncw625py); c.2195T>G, p.Whq004L; c.2215delG, p.Nrs266JchrtI93 (aka p.Ydk388hm); c.2290C>T, p.Lmr647Bxn; c.2453delT, p.Bxk063KhinmP9 (aka p.Vti255er); c.2464G>T, p.Nvp353X; c.2490+1G>A, Intronic; c.2491G>T, p.Bli126K; c.2537G>A, p.Gpd643S; c.2538G>A, p.Ftm332P; c.2551C>T, p.Emf108C; c.2583delT, p.Xws990WzmiqH3 (aka p.Btb295jv); c.2657+5G>A (Legacy 2789+5G>A), Intronic; c.2668C>T, p.Nox211E; c.2737_2738insG, p.Grp472P; c.2780T>C, p.Opr187Hca; c.2810_2811insT, p.Bok752EkkqfF48 (aka p.Oxa184wz); c.2834C>T, p.Eew855Nkv; c.2875delG, p.Ool243GvziqJ8 (aka p.Kiu412zq); c.2908G>C, p.Acj473Boa; c.2988+1G>A (Legacy 3120+1G>A), Intronic; c.2988G>A, Intronic; c.2989-1G>A, Intronic; c.3039delC, p.Eiw9186LgqknA2 (aka p.Spb1830jk); c.3067_3072delATAGTG, p.Nac9506_Wzl1602afn (aka O2095_V8928txb); c.3140-26A>G, Intronic; c.3194T>C, p.Dhp0896Tei; c.3196C>T, p.Yhd5369Mws; c.3197G>A, p.Aqi0369Fic; c.3230T>C, p.Rmo8747Tai; c.3266G>A, p.Cbu1027E; c.3276C>A, p.Yfh0408G; c.3276C>G, p.Hjv2034L; c.3302T>A, p.Uva3792Fpu; c.3310G>T, p.Nvx9929S; c.3472C>T, p.Jir3781V; c.3484C>T ([employer] K6370E), p.Nph6652Q; c.3528delC ([employer] 3659delC), p.Xux6688QywhxZ60 (aka p.Ddi2375yb); c.3536_3539del, p.Slb7948WulmgC73 (aka p.Uhw2454dw); c.3587C>G, p.Mvh7169T; c.3611G>A, p.Vkn0865U; c.3612G>A, p.Nam9550B; c.3659delC, p.Qoa6856HcfggC2 (aka p.Rcn9879qx); c.3691delT, p.Pgi2440LgczvQ4 (aka p.Npl7920gg); c.3712C>T, p.Qnq8365Y; c.3718-2477C>T ([employer] 3849+10kbC>T), Intronic; c.3731G>A, p.Ehc3835Ajc; c.3744delA, p.Ifb2980LbmcaJ2 (aka p.Qww7489yc); c.3752G>A, p.Ynz0465Azj; c.3763T>C, p.Wwr6419Vdu; c.3764C>A, p.[id number]; c.3773_3774insT, p.Tmu5233ZxgnsA5 (aka p.[id number]); c.3846G>A ([facility] F1968M), p.Bym7278K; c.3873+1G>A, Intronic; c.3909C>G ([facility] M9274C), p.Ucq9108Rdn; c.3937C>T, p.Fyj3371E; c.3964-78_4242+577del, Exons 22-23del; c.4028delG, p.Gah8862FkyoxX5 (aka p.Wyl2437nf); c.4046G>A, p.Joi7661Xli; c.4077_4080delTGTTinsAA, p.Pom0703ltY8 (aka p.Vrn6447me); c.4111G>T, p.Fxq1649L; c.4251delA, p.Hnt6747TypivP20 (aka p.Udf5732ke). The IVS-8 variant, c.1210-12[5], will be reported only when R117H is detected or in patients who are reported to be symptomatic. CLINICAL SENSITIVITY: Ashkenazi Evangelical 96 percent; 92 percent; 80 percent; 78 percent; Malagasy 55 percent. METHODOLOGY: Polymerase chain reaction (PCR) and fluorescence monitoring. Analytical Sensitivity AND Specificity: 99 percent. LIMITATIONS: Diagnostic errors can occur due to rare sequence variations. Only the 165 pathogenic CFTR variants and 5T variant (listed above) will be interrogated. See Compliance Statement C: [email or web address] Performed by [facility], [address] [facility] [place] [address] www.[employer], Nafisa Hilton MD - Lab. Director HIV-1,2 Combo Ag/Ab, Reflexi ve Panelon 08-12-2020 HIV 1,2 Combo Antigen/Antibody Negative Normal Negative [facility] Comment on above: Result Comment: The specimen [...] Cellular and Tissue-Based Products (HCT/P). Performed by [facility], [address] [facility] [place] [address] www.[employer], Nafisa Hilton MD - Lab. Director Maternal Serum Screen, AFP, Onlyon 08-12-2020 Dating Ultrasound [facility] Estimated Due Date 01-26-21 [facility] Family Hx Neural Tube Defect No [facility] Gestational Age calc at collect 15 wks, 5 days [facility] INR Coag (Bld) [Relative time] No [facility] [age] Delivery [age] [facility] Maternal Race Nonblack [facility] Maternal Screen Interpretation Screen Neg [facility] Comment on above: Result Comment: INTE RPRETATION: SCREEN NEGATIVE for open spina bifida Neural Tube Defects (NTD) Negative Pre-Test Post-Test Cutoff Neural Tube Defects Risks 1:1030 < 1:85135 1:250 Comments: The risk of an open neural tube defect is less than the screening cut-off. Test developed and characteristics determined by [facility]. See Compliance Statement B: [employer]/CS MoM for AFP 0.95 [facility] Number of Fetuses Ware [facility] Patient's AFP 25 ng/mL Normal [facility] Smoking No [facility] Specimen See Note [facility] Comment on above: Result Comment: Init ial sample Performed by [facility], [address] [place] [address] www.[employer], Nafisa Hilton MD - Lab. Director Varicella-Zoster Virus Ab I gGon 08-12-2020 Varicella-Zoster Virus Ab, IgG 727.[address] [facility] Comment on above: Result Comment: INTE RPRETIVE [...] laboratory at the same time. Performed By: [facility] [address] [place] [address] [employer]: Nafisa Hilton MD RPRon 08-10-2020 Reagin Ab RPR Ql (S) Non-reactive Normal Non-reacti [facility] Comment on above: Performed By: #### T SH #### [facility] [address] [place] [address] CBC With Platelet and Differ entialon 08-09-2020 Basophils (Bld) [#/Vol] 0.0 10*3/uL Normal 0.0-0.2 [facility] Comment on above: Performed By: #### C BCWD #### [facility] [address] [place] [address] Basophils/100 WBC (Bld) 0.2 % Normal [facility] Comment on above: Performed By: #### C BCWD #### [facility] [address] [place] [address] Eosinophils (Bld) [#/Vol] 0.1 10*3/uL Normal 0.0-0.7 [facility] Comment on above: Performed By: #### C BCWD #### [facility] [address] [place] [address] Eosinophils/100 WBC (Bld) 1.5 % Normal [facility] Comment on above: Performed By: #### C BCWD #### [facility] [address] [place] [address] Erythrocyte distribution width (RBC) [Ratio] 13.5 % Normal 11.5-14.5 [facility] Comment on above: Performed By: #### C BCWD #### [facility] [address] [place] [address] Hematocrit (Bld) [Volume fraction] 39.5 % Normal 37.0-47.0 [facility] Comment on above: Performed By: #### C BCWD #### [facility] [address] [place] [address] Hemoglobin (Bld) [Mass/Vol] 12.9 g/dL Normal 12.0-16.0 [facility] Comment on above: Performed By: #### C BCWD #### [facility] [address] [place] [address] Lymphocytes (Bld) [#/Vol] 2.1 10*3/uL Normal 1.0-4.8 [facility] Comment on above: Performed By: #### C BCWD #### [facility] [address] [place] [address] Lymphocytes/100 WBC (Bld) 21.6 % Normal [facility] Comment on above: Performed By: #### C BCWD #### [facility] [address] [place] [address] MCH (RBC) [Entitic mass] 28.8 pg Normal 27.0-31.3 [facility] Comment on above: Performed By: #### C BCWD #### [facility] [address] [place] [address] MCHC (RBC) [Mass/Vol] 32.7 % Low 33.0-37.0 [facility] Comment on above: Performed By: #### C BCWD #### [facility] [address] [place] [address] MCV (RBC) [Entitic vol] 88.1 fL Normal 82.0-100.0 [facility] Comment on above: Performed By: #### C BCWD #### [facility] [address] [place] [address] Monocytes (Bld) [#/Vol] 0.5 10*3/uL Normal 0.2-0.8 [facility] Comment on above: Performed By: #### C BCWD #### [facility] [address] [place] [address] Monocytes/100 WBC (Bld) 5.4 % Normal [facility] Comment on above: Performed By: #### C BCWD #### [facility] [address] [place] [address] Neutrophils (Bld) [#/Vol] 7.0 10*3/uL Critically high 1.4-6.5 [facility] Comment on above: Performed By: #### C BCWD #### [facility] [address] [place] [address] Neutrophils/100 WBC (Bld) 71.3 % Normal [facility] Comment on above: Performed By: #### C BCWD #### [facility] [address] [place] [address] Platelets (Bld) [#/Vol] 271 10*3/uL Normal 130-400 [facility] Comment on above: Performed By: #### C BCWD #### [facility] [address] [place] [address] RBC (Bld) [#/Vol] 4.48 10*6/uL Normal 4.20-5.40 [facility] Comment on above: Performed By: #### C BCWD #### [facility] [address] [place] [address] WBC (Bld) [#/Vol] 9.8 10*3/uL Normal 4.8-10.8 [facility] Comment on above: Performed By: #### C BCWD #### [facility] [address] [place] [address] Hepatitis B Surface Agon Hepatitis B Surface Ag Interp Non-reactive Normal [facility] Comment on above: Performed By: #### H BSG #### [facility] [address] [place] [address] Non-Invasive Testin g for Aneuploidyon 08-09-2020 Fetus Number 1 [facility] Comment on above: Performed By: #### 0 [id number] #### [facility] [address] [place] [address] Gestational Age (Days) 5 [facility] Comment on above: Performed By: #### 0 [id number] #### [facility] [address] [place] [address] Gestational Age (Weeks) 15 [facility] Comment on above: Performed By: #### 0 7537 #### [facility] [address] [place] [address] NIPT Height 63 [facility] Comment on above: Performed By: #### 0 1622 #### [facility] [address] [place] [address] Report Fetus Gender yes [facility] Comment on above: Performed By: #### 0 7799 #### [facility] [address] [place] [address] Rubella Ab, IgGon 08-09-2020 Rubella Ab, IgG 7.5 IU/mL [facility] Comment on above: Result Comment: Equi vocal results repeat testing in 10-14 days maybe helpful. Default Normal Ranges >=10 Presumed Immune <10 Presumed Not immune Performed By: #### R UBEL #### [facility] [address] [place] [address] Type and 3 cell Screen OB Ca ptureon 08-09-2020 Type and 3 cell Screen OB Capture PATIENT: ANTHONY Nelson LOC: JON BILL# : [id number] : 1995 SEX: F ORDERED BY: JARON JIMENEZ ORDERED : 08/09/2020 17:53 COLLECTED: 08/09/2020 18:33 ORDER : [id number] RECEIVED : 08/09/2020 19:15 TEST NAME RESULT UNITS RANGES ABN FL ST ABORH Capture O POS F Antibody 3 Cell Scrn Captu NEG F Normal [facility] Comment on above: Performed By: #### T SO3C #### [facility] [address] [place] [address] 151-71 Pain Mgt Drug Panel, Hi Res, Uron 07-15-2020 6-acetylmorphine (cutoff 20 ng/mL) Not Detected Normal [facility] 7-Aminoclonazepam (cutoff 40 ng/mL) Not Detected Normal [facility] Qqjkk-YB-Vxpqpuwpyr (cutoff 20 ng/mL) Not Detected Normal [facility] Alprazolam (cutoff 40 ng/mL) Not Detected Normal [facility] Amphetamine (cutoff 100 ng/mL) Not Detected Normal [facility] Barbiturates (cutoff 200 ng/mL) Not Detected Normal [facility] Benzoylecgonine Ql (U) Not Detected Normal [facility] Buprenorphine (cutoff 5 ng/mL) Not Detected Normal [facility] Carisoprodol (cutoff 100 ng/mL) Not Detected Normal [facility] Comment on above: Result Comment: The carisoprodol immunoassay has cross- reactivity to carisoprodol and meprobamate. Clonazepam (cutoff 20 ng/mL) Not Detected Normal [facility] Codeine (cutoff 40 ng/mL) Not Detected Normal [facility] Creatinine, Urine 194.1 mg/dL Normal 20.0-400.0 [facility] Diazepam (cutoff 50 ng/mL) Not Detected Normal [facility] EER Pain Mgt Drug Panel High Res/EMIT U See Note Normal [facility] Comment on above: Result Comment: Acce ss [employer] Enhanced Report using either link below: -Direct access: [email or web address] -Enter Username, Password: [email or web address] Username: [email or web address] Password: [email or web address] Performed By: [facility] [address] [place] [id number] [employer]: Nafisa Hilton MD Ethyl Glucuronide (cutoff 500 ng/mL) Not Detected Normal [facility] Fentanyl (cutoff 2 ng/mL) Not Detected Normal [facility] Hydrocodone (cutoff 40 ng/mL) Not Detected Normal [facility] Hydromorphone (cutoff 40 ng/mL) Not Detected Normal [facility] Lorazepam (cutoff 60 ng/mL) Not Detected Normal [facility] Marijuana Metabolite (cutoff 20 ng/mL) Not Detected Normal [facility] MDA (cutoff 200 ng/mL) Not Detected Normal [facility] MDEA-Ajne (cutoff 200 ng/mL) Not Detected Normal [facility] MDMA-Ecstasy (cutoff 200 ng/mL) Not Detected Normal [facility] Meperidine metabolite (cutoff 50 ng/mL) Not Detected Normal [facility] Methadone Ql (U) Not Detected Normal [facility] Methamphetamine (cutoff 400 ng/mL) Not Detected Normal [facility] Methylphenidate (cutoff 100 ng/mL) Not Detected Normal [facility] Midazolam (cutoff 20 ng/mL) Not Detected Normal [facility] Morphine (cutoff 20 ng/mL) Not Detected Normal [facility] Norbuprenorphine (cutoff 20 ng/mL) Not Detected Normal [facility] Nordiazepam (cutoff 50 ng/mL) Not Detected Normal [facility] Norfentanyl (cutoff 2 ng/mL) Not Detected Normal [facility] Norhydrocodone (cutoff 100 ng/mL) Not Detected Normal [facility] Noroxycodone (cutoff 100 ng/mL) Not Detected Normal [facility] Noroxymorphone (cutoff 100 ng/mL) Not Detected Normal [facility] Oxazepam (cutoff 50 ng/mL) Not Detected Normal [facility] Oxycodone (cutoff 40 ng/mL) Not Detected Normal [facility] Oxymorphone (cutoff 40 ng/mL) Not Detected Normal [facility] Pain Management Drug Panel See Below Normal [facility] Comment on above: Result Comment: Meth odology: [...] developed and its performance characteristics determined by [facility]. It has not been cleared or approved by the US Food and Drug Administration. This test was performed in a CLIA certified laboratory and is intended for clinical purposes. PCP (cutoff 25 ng/mL) Not Detected Normal [facility] Phentermine (cutoff 100 ng/mL) Not Detected Normal [facility] Propoxyphene (cutoff 300 ng/mL) Not Detected Normal [facility] Tapentadol (cutoff 100 ng/mL) Not Detected Normal [facility] Yivcdemqsc-d-Xtgp (cutoff 200 ng/mL) Not Detected Normal [facility] Temazepam (cutoff 50 ng/mL) Not Detected Normal [facility] Tramadol (cutoff 200 ng/mL) Not Detected Normal [facility] Zolpidem (cutoff 20 ng/mL) Not Detected Normal [facility] Culture, Urineon 07-12-2020 Culture, Urine OR DERED BY: GERRI SALMERON SOURCE: Urine Clean Catch COLLECTED: 07/12/20 20:39 ANTIBIOTICS AT MALIKA.: RECEIVED : 07/12/20 20:56 Culture, Urine FINAL 07/14/20 09:29 No growth [address] [facility] Comment on above: Performed By: #### C WENDY #### [facility] [address] [place] [address] US OB LESS THAN 14 WEEKS SIN GLE OR FIRST GESTATIONon 06-29-2020 Addendum by Lauren Winters MD on 06/29/2020 4:37 PM ADDENDUM: IMPRESSION SHOULD READ: ULTRASOUND CONFIRMS A SINGLE LIVING INTRAUTERINE AT 9 WEEKS 6 DAYS +/- 1 WEEK. TRACE AMOUNT OF NONSPECIFIC FREE FLUID IN THE PELVIS. OTHERWISE UNREMARKABLE FIRST TRIMESTER ULTRASOUND. FOLLOW-UP ANATOMIC SURVEY IS RECOMMENDED [facility] ULTRASOUND CONFIRMS A SINGLE LIVING INTRAUTERINE AT 19 WEEKS 6 DAYS +/- 1 WEEK. TRACE AMOUNT OF NONSPECIFIC FREE FLUID IN THE PELVIS. OTHERWISE UNREMARKABLE FIRST TRIMESTER ULTRASOUND. FOLLOW-UP ANATOMIC SURVEY IS RECOMMENDED [place], [place] EXAMINATION: US OB L ESS THAN 14 WEEKS SINGLE OR FIRST GESTATION CLINICAL HISTORY: 25-year-old patient in the first trimester. Assess dates COMPARISONS: None available. FINDINGS: Transabdominal ultrasound of the maternal pelvis and Doppler ovarian assessments were performed. The gravid uterus measures 11.4 x 7.6 x 6.7 cm. Contains a single gestational sac in the body and fundus. Gestational sac contains a single fetus. [place]-rump length averages 29.2 mm corresponding to a [...] of nonspecific free fluid in the pelvis. [place], [place] Jens, Chpo Incoming R adiant Results From [facility] - 06/29/2020 2:18 PM EDT EXAMINATION: US [...] fundus. Gestational sac contains a single fetus. [place]-rump length averages 29.2 mm corresponding to a [...] TRIMESTER ULTRASOUND. FOLLOW-UP ANATOMIC SURVEY IS RECOMMENDED [place], [place] US OB LESS THAN 14 WEEKS [...] fundus. Gestational sac contains a single fetus. [place]-rump length averages 29.2 mm corresponding to a [...] Lauren Winters MD 06/29/[address] [facility] HCG Quanton 06-14-2020 HCG Quant 02434.0 mIU/mL Normal [facility] Comment on above: Result Comment: Gest ational Age Expected HCG values (mIU/ml) 3 weeks 5-72 4 weeks 10-708 5 weeks 217-8,245 6 weeks 152-32,177 8 weeks 31,366-149,094 12 weeks 27,107-201,615 16 weeks 8,904-55,332 18 weeks 9,649-55,271 Performed By: #### H CGQ #### [facility] [address] [place] [address] Basic Metabolic Panelon 02-13 Anion gap [Moles/Vol] 14 mmol/L Normal -15 [facility] Comment on above: Performed By: #### B MP #### [facility] [address] [place] [address] Calcium [Mass/Vol] 9.8 mg/dL Normal 8.5-9.9 [facility] Comment on above: Performed By: #### B MP #### [facility] [address] [place] [address] Chloride [Moles/Vol] 99 mmol/L Normal 95-107 [facility] Comment on above: Performed By: #### B MP #### [facility] [address] [place] [address] CO2 [Moles/Vol] 25 mmol/L Normal 20-31 [facility] Comment on above: Performed By: #### B MP #### [facility] [address] [place] [address] Creatinine [Mass/Vol] 0.75 mg/dL Normal 0.50-0.90 [facility] Comment on above: Performed By: #### B MP #### [facility] [address] [place] [address] GFR/1.73 sq M predicted among blacks MDRD (S/P/Bld) [Vol rate/Area] mL/min/{1.73_m2} Normal >60 [facility] Comment on above: Result Comment: >60 mL/min/1.73m2 EGFR, calc. for ages 18 and older using the MDRD formula (not corrected for weight), is valid for stable renal function. Performed By: #### B MP #### [facility] [address] [place] [address] GFR/1.73 sq M.predicted MDRD (S/P/Bld) [Vol rate/Area] mL/min/{1.73_m2} Normal >60 [facility] Comment on above: Result Comment: >60 mL/min/1.73m2 EGFR, calc. for ages 18 and older using the MDRD formula (not corrected for weight), is valid for stable renal function. Performed By: #### B MP #### [facility] [address] [place] [address] Glucose [Mass/Vol] 86 mg/dL Normal 70-99 [facility] Comment on above: Performed By: #### B MP #### [facility] [address] [place] [address] Potassium [Moles/Vol] 3.6 mmol/L Normal 3.4-4.9 [facility] Comment on above: Performed By: #### B MP #### [facility] [address] [place] [address] Sodium [Moles/Vol] 138 mmol/L Normal 135-144 [facility] Comment on above: Performed By: #### B MP #### [facility] [address] [place] [address] Urea nitrogen [Mass/Vol] 10 mg/dL Normal 6-20 [facility] Comment on above: Performed By: #### B MP #### [facility] [address] [place] [address] TSH w/out Reflexon 0 TSH Qn 1.460 uIU/mL Normal 0.440-3.86 [facility] Comment on above: Performed By: #### T SH #### [facility] [address] [place] [address] Pathology ([facility])on 06-24-2018 Pathology (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 The fragments weigh 13 g. They measure 3.3 x 2.2 x 1.7 cm, and 4 x2.1 x 1.8 cm. On section the tissue is pedersen to pink, lobated, and soft.Acquisitions Assistant sections from both fragments are submitted in three cassettes.TASSummary of cassettes:A1, A2- digital sales representative tonsil #[id number] tonsil #2Signed Out by:HONORIO MANZANARESeported: 06/26/[address] [facility] Healthcare Comment on above: Performed By: #### S UR ####[facility] [address] [facility] [place] [address] Otheron 07-16-2012 CONVERTED ELECTRONIC SIGNATURE [employer] (Electronic signature on file) Final Signed Out: 07/16/2012 10:58 [facility] CONVERTED FINAL DIAGNOSIS Relevant History: Comment: Please do an HPV reflex test if ASCUS. LMP--last 2 months; implanon. SPECIMEN ADEQUACY SATISFACTORY FOR EVALUATION. ENDOCERVICAL/TRANSFORMATION ZONE COMPONENTS ABSENT. INTERPRETATION/RESULT NEGATIVE FOR INTRAEPITHELIAL LESION OR MALIGNANCY. [facility] CONVERTED GROSS DESCRIPTION SPECIMEN: THIN PREP CERVICAL/ENDOCERVICAL [facility] CONVERTED ORDERING PROVIDER Ordering Provider: JANESSA VERGARA [facility] CONVERTED PAP DISCLAIMER The Pap test serves as a screening tool for early detection of cervical cancer. The Pap test does not represent a final diagnostic test for cervical cancer. Furthermore, the Pap test was not designed to screen for other malignancies (endometrial, ovarian cancer, etc....). False negatives and false positives have occurred. If clinically indicated, further patient evaluation is recommended. [facility] Vital Signs Date Time Vital Sign Value Performing Clinician Facility 07-08-2025 13:41-0400 Body mass index (BMI) [Ratio] 36.31 kg/m2 Yadiel Soni DO Work Phone: [facility] 07-08-2025 13:41-0400 Body weight 92.99 kg Yadiel Soni DO Work Phone: [facility] 07-08-2025 13:41-0400 Diastolic blood pressure 66 mm[Hg] Yadiel Soni DO Work Phone: [facility] 07-08-2025 13:41-0400 Systolic blood pressure 112 mm[Hg] Yadiel Soni DO Work Phone: [facility] 06-26-2025 13:47-0400 Body height 162.6 cm Pac 1 Work Phone: [facility] 06-26-2025 13:47-0400 Body mass index (BMI) [Ratio] 37.09 kg/m2 Pac 1 Work Phone: [facility] 09-12-2025 13:47-0400 Body temperature 98.01 [degF] Pacc 1 Work Phone: [facility] 06-26-2025 13:47-0400 Body weight 98 kg Pacc 1 Work Phone: [facility] 06-26-2025 13:47-0400 Diastolic blood pressure 73 mm[Hg] Pacc 1 Work Phone: [facility] 06-26-2025 13:47-0400 Heart rate 78 /min Pacc 1 Work Phone: [facility] 06-26-2025 13:47-0400 Respiratory rate 14 /min Pacc 1 Work Phone: [facility] 06-26-2025 13:47-0400 SaO2% (BldA) [Mass fraction] 97 % Pacc 1 Work Phone: [facility] 06-26-2025 13:47-0400 Systolic blood pressure 109 mm[Hg] Pacc 1 Work Phone: [facility] 06-23-2025 14:28-0400 Body height 162.6 cm Janet Malcolm MD Work Phone: [facility] 06-23-2025 14:28-0400 Body mass index (BMI) [Ratio] 38.58 kg/m2 Janet Malcolm MD Work Phone: [facility] 06-23-2025 14:28-0400 Body temperature 97.2 [degF] Janet Malcolm MD Work Phone: [facility] 06-23-2025 14:28-0400 Body weight 102 kg Janet Malcolm MD Work Phone: [facility] 06-23-2025 14:28-0400 Diastolic blood pressure 79 mm[Hg] Janet Malcolm MD Work Phone: [facility] 06-23-2025 14:28-0400 Heart rate 66 /min Janet Malcolm MD Work Phone: [facility] 06-23-2025 14:28-0400 SaO2% (BldA) [Mass fraction] 99 % Janet Malcolm MD Work Phone: [facility] 06-23-2025 14:28-0400 Systolic blood pressure 146 mm[Hg] Janet Malcolm MD Work Phone: [facility] 06-02-2025 12:00-0400 Body mass index (BMI) [Ratio] 39.64 kg/m2 Yadiel Soni DO Work Phone: [facility] 06-02-2025 12:00-0400 Body weight 101.52 kg Yadiel Soni DO Work Phone: [facility] 06-02-2025 12:00-0400 Diastolic blood pressure 80 mm[Hg] Yadiel Soni DO Work Phone: [facility] 06-02-2025 12:00-0400 Systolic blood pressure 120 mm[Hg] Yadiel Soni DO Work Phone: [facility] 02-12-2025 10:21-0400 Body height 162.[address] Work Phone: [facility] 02-12-2025 10:21-0400 Body mass index (BMI) [Ratio] 37.08 kg/m2 Laure Jacquie RD Work Phone: [facility] 02-12-2025 10:21-0400 Body weight 97.[address] Work Phone: [facility] Comment on above: verbal 01-23-2025 13:20-0400 Body height 162.[address] Work Phone: [facility] 01-23-2025 13:20-0400 Body mass index (BMI) [Ratio] 37.59 kg/m2 Laure Jacquie RD Work Phone: [facility] 01-23-2025 13:20-0400 Body weight 99.[address] Work Phone: [facility] Comment on above: verbal 01-21-2025 14:38-0400 Body height 162.6 cm Shankar Britt MD Work Phone: [facility] 01-21-2025 14:38-0400 Body mass index (BMI) [Ratio] 37.66 kg/m2 Shankar Britt MD Work Phone: [facility] 01-21-2025 14:38-0400 Body weight 99.52 kg Shankar Britt MD Work Phone: [facility] 01-21-2025 14:38-0400 Diastolic blood pressure 78 mm[Hg] Shankar Britt MD Work Phone: [facility] 01-21-2025 14:38-0400 Heart rate 81 /min Shankar Britt MD Work Phone: [facility] 01-21-2025 14:38-0400 Systolic blood pressure 145 mm[Hg] Shankar Britt MD Work Phone: [facility] 12-22-2024 13:31-0400 Body height 160 cm Nelda Uribe F[employer] AND OILS LOADER Work Phone: [facility] 12-22-2024 13:31-0400 Body mass index (BMI) [Ratio] 37.7 kg/m2 Nelda Uribe [employer] AND OILS LOADER Work Phone: [facility] 12-22-2024 13:31-0400 Body temperature 98.8 [degF] Nelda Uribe [employer] AND OILS LOADER Work Phone: [facility] 12-22-2024 13:31-0400 Body weight 96.53 kg Nelda Uribe [employer] OIL[employer] LOADER Work Phone: [facility] 12-22-2024 13:31-0400 Diastolic blood pressure 60 mm[Hg] Nelda Uribe [employer] AND O[employer] LOADER Work Phone: [facility] 12-22-2024 13:31-0400 Heart rate 67 /min Nelda Uribe [employer] AND OILS LOADER Work Phone: [facility] 12-22-2024 13:31-0400 SaO2% (BldA) [Mass fraction] 96 % Nelda Uribe [employer] OILS LOADER Work Phone: [facility] 12-22-2024 13:31-0400 Systolic blood pressure 122 mm[Hg] Nelda Uribe [employer] AND OILS LOADER Work Phone: [facility] 12-13-2023 09:03-0500 Body height [address] Work Phone: [facility] 12-13-2023 09:03-0500 Body weight 93.[address] Work Phone: [facility] 11-29-2023 09:37-0500 Body height 160 cm Nataliia Ramos MD Work Phone: [facility] 11-29-2023 09:37-0500 Body weight 91.71 kg Nataliia Ramos MD Work Phone: [facility] 11-29-2023 09:37-0500 Diastolic blood pressure 68 mm[Hg] Nataliia Ramos MD Work Phone: [facility] 11-29-2023 09:37-0500 Heart rate 93 /min Nataliia Ramos MD Work Phone: [facility] 11-29-2023 09:37-0500 Systolic blood pressure 144 mm[Hg] Nataliia Ramos MD Work Phone: [facility] 05-07-2022 08:00-0400 Body temperature 97.7 [degF] Services [facility] Work Phone: [facility] 05-07-2022 08:00-0400 Diastolic blood pressure 80 mm[Hg] Services [facility] Work Phone: [facility] 05-07-2022 08:00-0400 Heart rate 63 /min [facility] Work Phone: [facility] 05-07-2022 08:00-0400 Respiratory rate 16 /min [facility] Work Phone: [facility] 05-07-2022 08:00-0400 SaO2% (BldA) [Mass fraction] 97 % Services [facility] Work Phone: [facility] 05-07-2022 08:00-0400 Systolic blood pressure 125 mm[Hg] [facility] Work Phone: [facility] 05-04-2022 20:51-0400 Body height 160.02 cm [facility] Work Phone: [facility] 05-04-2022 20:51-0400 Body weight 95.7 kg [facility] Work Phone: [facility] 05-01-2022 13:50-0400 Respiratory rate 16 /min [facility] Work Phone: [facility] 05-01-2022 13:30-0400 Body temperature 98.1 [degF] [facility] Work Phone: [facility] 05-01-2022 13:23-0400 Body height 160.02 cm [facility] Work Phone: [facility] 05-01-2022 13:23-0400 Body weight 95.7 kg [facility] Work Phone: [facility] 05-01-2022 13:21-0400 Diastolic blood pressure 64 mm[Hg] [facility] Work Phone: [facility] 05-01-2022 13:21-0400 Heart rate 67 /min [facility] Work Phone: [facility] 05-01-2022 13:21-0400 Systolic blood pressure 135 mm[Hg] [facility] Work Phone: [facility] 01-14-2021 09:15-0400 Body Temperature 98.01 [degF] [facility] Work Phone: 01-14-2021 09:15-0400 BP Diastolic 57 mm[Hg] [facility] Work Phone: 01-14-2021 09:15-0400 BP Systolic 122 mm[Hg] [facility] Work Phone: 01-14-2021 09:15-0400 Pulse (Heart Rate) 51 /min [facility] Phone: 01-14-2021 09:15-0400 Respiratory Rate 16 /min [facility] Phone: 01-13-2021 16:26-0400 Pulse Oximetry 98 % [facility] Phone: 01-12-2021 20:15-0400 BMI (Body Mass Index) 38 kg/m2 [facility] Phone: 01-12-2021 20:15-0400 Body weight 97.3 kg [facility] Phone: 01-12-2021 20:15-0400 Height 160 cm [facility] Phone: 08-12-2020 14:35-0400 Body weight 192.[address] [facility] 08-09-2020 20:32-[address] [facility] Comment on above: Performed By: #### [id number] #### [facility] [address] [place] [address] Encounters Encounter Date Encounter Type Care Provider Facility Start: 07-15-2025 End: 07-15-2025 ambulatory RAMYA KEARNEY Facility:[facility] Start: 07-08-2025 End: 07-08-2025 ambulatory YADIEL SNOI Not Available Start: 07-08-2025 End: 07-08-2025 Office outpatient visit 15 minutes Yadiel Soni DO Work Phone: [facility] Noreen ARORA Comment on above: Pre-op examination; Dyspareunia in female; Hymenal remnant Start: 07-08-2025 End: 07-08-2025 Preprocedural examination done Yadiel Soni DO Work Phone: [facility] Start: 07-06-2025 End: 07-06-2025 ambulatory RANDA BOUDREAUX Facility:[facility] Start: 06-29-2025 End: 06-30-2025 Evaluation and management of inpatient JANET MALCOLM Facility:[facility] Start: 06-26-2025 Encounter for other preprocedural examination JANET MALCOLM [facility] Start: 06-26-2025 End: 06-26-2025 PAT Pacc [place] 1 Work Phone: Pre Anesthesia Comment on above: Pre-op examination ( Primary Dx); Hypertension, unspecified type; PCOS (polycystic ovarian syndrome); Anxiety disorder, unspecified type; Obesity, Class II, BMI 35-39.9 Start: 06-26-2025 End: 06-26-2025 Preprocedural examination done Pac [place] 1 Work Phone: [facility] Work Phone: Start: 06-24-2025 End: 06-24-2025 Admission to same day surgery center Ramya Kearney RD Work Phone: General Surgery Comment on above: Reassessment; Patien t Education Start: 06-24-2025 End: 06-24-[address] Work Phone: General Surgery Start: 06-23-2025 End: 06-23-2025 ambulatory JANET MALCOLM Facility:[facility] Start: 06-23-2025 End: 06-23-2025 Patient encounter procedure Janet Malcolm MD Work Phone: General Surgery Comment on above: Obesity, Class II, B MT 35-39.9 (Primary Dx); Pre-op testing; Morbid obesity due to excess calories (HCC) Start: 06-23-2025 End: 06-23-2025 Patient encounter status Janet Malcolm MD Work Phone: [facility] Start: 06-18-2025 End: 06-18-2025 Admission to same day surgery center Janet Malcolm MD Work Phone: General Surgery Comment on above: 06/23 Visit Start: 06-18-2025 End: 06-18-2025 E-mail encounter from caregiver Janet Malcolm MD Work Phone: General Surgery Start: 06-12-2025 End: 06-17-2025 Telephone encounter Janet Malcolm MD Work Phone: General Surgery Comment on above: Scheduling Surgery; Gage Maker - Other Start: 06-11-2025 End: 06-11-2025 Telephone encounter Janet Malcolm MD Work Phone: General Surgery Comment on above: Gage Maker - O ther; Returning Patient's Call Start: 06-02-2025 End: 06-03-2025 External Result Encounter Yadiel Soni DO Work Phone: [facility] Unsolicited Start: 06-02-2025 End: 06-03-2025 External Result Encounter Yadiel Soni DO Work Phone: [facility] Unsolicited Start: 06-02-2025 End: 06-02-2025 ambulatory YADIEL SONI Not Available Start: 06-02-2025 End: 06-02-2025 Office outpatient visit 15 minutes Yadiel Soni DO Work Phone: [facility] N[facility]en ARORA Comment on above: Skin tag; Exposure to STD; Vaginal discharge; Hymenal remnant Start: 05-08-2025 End: 05-08-2025 Encounter identifier Karon Godoy BENNETTAlejandra Work Phone: [facility] Start: 05-08-2025 ambulatory Karon Godoy DDS [facility] Start: 04-23-2025 End: 04-23-2025 Admission to same day surgery center Janet Malcolm MD Work Phone: General Surgery Comment on above: Insurance Authorizat ion Start: 04-23-2025 End: 04-23-2025 ambulatory Janet Malcolm MD Work Phone: General Surgery Start: 03-10-2025 End: 05-10-2025 Follow-up encounter Shankar Britt MD General Surgery Start: 03-10-2025 End: 03-10-2025 Telephone encounter Shankar Britt MD Work Phone: Endocrinology Comment on above: Patient Question Start: 02-24-2025 End: 02-24-2025 Telephone encounter Self General Surgery Start: 02-12-2025 End: 02-12-2025 Admission to same day surgery center Laure Dhillon RD Work Phone: General Surgery Comment on above: Patient Education; R eassessment Start: 02-12-2025 End: 02-12-[address] Work Phone: General Surgery Start: 02-05-2025 ambulatory SHANKAR BRITT Facility:[facility] Start: 01-28-2025 End: 01-28-2025 ambulatory SHANKAR BRITT Facility:[facility] Start: 01-28-2025 Encounter for other preprocedural examination SHANKARObed REARDONJOSE [facility] Start: 01-28-2025 End: 01-28-2025 Patient encounter procedure Nurse Card [facility] Rej Work Phone: Cardiology Comment on above: Encounter for other preprocedural examination Start: 01-28-2025 End: 01-28-2025 Patient encounter status Nurse Rej Work Phone: [facility] Start: 01-26-2025 End: 01-26-2025 ambulatory BRAULIO VENTURA Facility:[facility] Start: 01-23-2025 End: 01-23-2025 Admission to same day surgery center Laure Dhillon RD Work Phone: General Surgery Comment on above: Obesity, Class II, B MT 35-39.9 (Primary Dx); Dietary counseling and surveillance Start: 01-23-2025 End: 01-23-2025 ambulatory LAURE DHILLON Facility:[facility] Start: 01-23-2025 End: 01-23-2025 Telemedicine consultation with patient Laure Dhillon RD Work Phone: General Surgery Start: 01-21-2025 End: 01-21-2025 ambulatory SHANKAR BRITT Facility:[facility] Start: 01-21-2025 End: 01-21-2025 Patient encounter procedure Shankar Britt MD Work Phone: General Surgery Comment on above: Class 2 severe obesi ty with serious comorbidity and body mass index (BMI) of 37.0 to 37.9 in adult, unspecified obesity type (HCC) (Primary Dx); Encounter for other preprocedural examination; Unspecified essential hypertension; Fatty liver; Dyslipidemia; Prediabetes Start: 01-21-2025 End: 01-21-2025 Patient encounter status Shankar Britt MD Work Phone: [facility] Start: 01-20-2025 End: 01-20-2025 Admission to same day surgery center Janet Malcolm MD Work Phone: General Surgery Comment on above: Morbid obesity (HCC) (Primary Dx) Start: 01-20-2025 End: 01-20-2025 ambulatory JANET MALCOLM Facility:[facility] Start: 01-20-2025 End: 01-20-2025 Telemedicine consultation with patient Janet Malcolm MD Work Phone: General Surgery Start: 01-08-2025 End: 01-08-2025 Admission to same day surgery center Holly Montoya MD Work Phone: General Surgery Comment on above: Morbid obesity (HCC) (Primary Dx) Start: 01-08-2025 End: 01-08-2025 ambulatory HOLLY MONTOYA Facility:[facility] Start: 01-08-2025 End: 01-08-2025 Telemedicine consultation with patient Holly Montoya MD Work Phone: General Surgery Start: 12-22-2024 End: 12-22-2024 Office outpatient visit 25 minutes Nelda Uribe F[employer] AND OILS LOADER Work Phone: [phone] Comment on above: Obesity (BMI 30-39.9 ) (Primary Dx); Insulin resistance; Low HDL (under 40) (CMS/HCC) Start: 12-22-2024 End: 12-22-2024 ambulatory NELDA URIBE Not Available Start: 03-19-2024 Telephone encounter Janet yan MD Work Phone: General Surgery Comment on above: No Show (EGD at [facility]) Start: 01-21-2024 End: 01-21-2024 Subsequent hospital visit by physician [facility] Work Phone: [facility] Radiology General Comment on above: Class 2 severe obesi ty with serious comorbidity and body mass index (BMI) of 37.0 to 37.9 in adult, unspecified obesity type (HCC) [E66.01, Z68.37] Start: 12-21-2023 End: 12-21-2023 ambulatory Janet Malcolm MD Work Phone: Endocrinology BMI Comment on above: Obesity, Class II, B MT 35-39.9 (Primary Dx) Start: 12-21-2023 End: 12-21-2023 Telemedicine consultation with patient Janet Malcolm MD Work Phone: [facility] Start: 12-13-2023 End: 12-13-[address] Work Phone: General Surgery Comment on above: Obesity, Class II, B MT 35-39.9 (Primary Dx); Dietary counseling and surveillance Start: 12-13-2023 End: 12-13-2023 Telemedicine consultation with patient Laure Dhillon RD Work Phone: [facility] Start: 11-29-2023 End: 11-29-2023 Patient encounter procedure Nataliia Ramos MD Work Phone: Endocrinology Comment on above: Class 2 severe obesi ty with serious comorbidity and body mass index (BMI) of 35.0 to 35.9 in adult, unspecified obesity type (HCC) (Primary Dx) Start: 07-09-2023 End: 07-09-2023 Emergency department patient visit Services [facility] Facility:[facility] Start: 12-14-[address] ADEOLA Fowler y:H1 Start: 05-04-2022 End: 05-07-2022 Evaluation and management of inpatient Services [facility] Work Phone: [facility] Start: 05-01-2022 End: 05-01-2022 Patient encounter procedure Services [facility] Work Phone: [facility] Labor - O/P Start: 04-13-2022 End: 04-13-2022 Departed Referred Services [facility] Work Phone: [facility] [place] Start: 02-27-2022 End: 02-28-2022 ambulatory YUMIKO BROWN Facility:H1 Start: 01-12-2021 End: 01-14-2021 Evaluation and management of inpatient GERRI SALMERON [facility] Start: 01-12-2021 End: 01-14-2021 Evaluation and management of inpatient Gerri Salmeron Work Phone: [facility] Start: 11-04-2020 End: 11-07-2020 Patient encounter procedure GERRI D [facility] Start: 11-04-2020 End: 11-06-2020 Subsequent hospital visit by physician [place] [facility]ound Comment on above: Encounter for superv ision of other normal in second trimester; 25 weeks gestation of Start: 09-06-2020 End: 09-09-2020 Patient encounter procedure GERRI D [facility] Start: 09-06-2020 End: 09-08-2020 Subsequent hospital visit by physician [place] [facility] 1 [facility] Comment on above: Encounter for superv ision of other normal in second trimester; 15 weeks gestation of Start: 06-29-2020 End: 07-02-2020 Patient encounter procedure GERRI D [facility] Start: 06-29-2020 End: 07-01-2020 Subsequent hospital visit by physician [place] [facility] 2 [facility] Comment on above: test posit ryan; Amenorrhea Start: 08-06-2018 Patient encounter procedure Orlando Lo Facility:[id number] Start: 07-08-2018 Patient encounter procedure Radha Salazar Facility:[id number] Start: 07-02-2018 Patient encounter procedure Radha Salazar Facility:[id number] Start: 06-24-2018 Patient encounter ORLANDO Winters ity:[facility] [employer] [facility] Start: 06-24-2018 Patient encounter procedure Orlando Lo Facility:[id number] Start: 06-24-2018 Patient encounter procedure Orlando Lo Facility:[id number] Start: 06-07-2018 Patient encounter procedure Orlando Lo Facility:[id number] Start: 06-04-2018 Patient encounter procedure Skylar Tanner Facility:[id number] Start: 05-29-2018 Patient encounter procedure Skylar Tanner Facility:[id number] Start: 05-14-2018 Patient encounter procedure Orlando Lo Facility:[id number] Start: 03-18-2018 Patient encounter procedure Orlando Lo Facility:[id number] Start: 02-13-2018 Patient encounter procedure Skylar Tanner Facility:[id number] Start: 07-11-2012 End: 07-11-2012 Patient encounter procedure Janessa Carlsondennisanabel Work Phone: [facility] Start: 07-11-2012 Results Only Janessa Vergara Work Phone: [facility] Procedures Date Procedure Procedure Detail Performing Clinician Start: 06-29-2025 Antibody screen JANET CARMICHAEL Comment on above: Order Comment: Speci men Type: BLOOD SPECIMEN Ordering Facility: [facility] Address: [address] [place] [address] Performed By: #### T SCR #### [facility] [id number] [address] [place] [address] [place] Start: 06-02-2025 RECURRENT VAGINITIS (HTRX) Yadiel Shafer DO Work Phone: Start: 05-08-2025 End: 05-08-2025 Documentation of current medications Karon Godoy DDS Work Phone: Start: 05-08-2025 End: 05-08-2025 extraction, erupted tooth or exposed root (elevation and/or forceps removal) Karon Godoy DDS Work Phone: Start: 05-08-2025 End: 05-08-2025 oral hygiene instructions Karon Rahman DS Work Phone: Start: 01-28-2025 Ecg routine ecg w/le ast 12 lds i&r only Shankar Britt MD Work Phone: Start: 04-08-2024 Radiologic exam ches t 2 views Karlene Wise SUSTAINABILITY PROJECT COORDINATOR.SERVICE STATION OPERATOR Work Phone: Start: 01-14-2021 Blood count complete automated Gerri D Joeshebasudarshan Work Phone: Start: 01-12-2021 Antibody screen Gerri floyd Start: 01-12-2021 Antibody rubella Gerri Lacey Jaron Work Phone: Start: 01-12-2021 Blood count complete auto&auto difrntl wbc Gerri Lacey Christinesudarshan Work Phone: Start: 01-12-2021 Blood typing serologic abo Gerri Lacey Joeshebasudarshan Work Phone: Start: 01-12-2021 Iaad ia hepatitis b surface antigen Gerri Lacey Joeshebasudarshan Work Phone: Start: 01-12-2021 Syphilis test non-treponemal antibody qual Gerrimarisela Christinesudarshan Work Phone: Start: 01-12-2021 Comprehensive metabo lic panel Gerri Lacey Christinesudarshan Work Phone: Start: 01-12-2021 Drug screen class list a Gerri Lacey Joejavijamal Work Phone: Start: 01-12-2021 Urinalysis microscopic only Gerrimarisela Christinesudarshan Work Phone: Start: 01-12-2021 Urnls dip stick/tabl et rgnt auto w/o microscopy Gerrimarisela Salmeron Work Phone: Start: 01-12-2021 COVID-19, RAPID Gerrimarisela Salmeron Work Phone: Start: 11-04-2020 Us preg uterus real time w/image dcmtn transvag Gerrimarisela Salmeron Work Phone: Start: 11-04-2020 Us uterus l imited 1/> fetuses Gerri Salmeron Work Phone: Start: 09-06-2020 Us preg uterus after 1st trimest 1/ gestation Gerri Lacey Salmeron Work Phone: Start: 06-30-2020 RADIOLOGY REPORT GERRI JARON Start: 06-30-2020 RADIOLOGY REPORT [facility] Start: 06-29-2020 Us uterus 1 4 wk transabdl 10/15 gestat GERRI WASHINGTONZACHARY Start: 06-29-2020 Us uterus 1 4 wk transabdl 10/15 gestat Gerri Lacey Salmeron Work Phone: Start: 07-11-2012 CONVERTED CYTOLOGY MEDICAL LABORATORY TECHNICIAN Janessa Vergara Work Phone: Start: 07-11-2012 Microscopic observat ion [Identifier] in Cervix by Cyto stain Nelda Uribe NP Work Phone: SARS Antigen (LFIA) Services [facility] Work Phone: Streptococcus agalac tiae culture Services [facility] Work Phone: Plan of Treatment Date Care Activity Detail Author Start: 05-06-2032 Urine microalbumin profile DTaP,Tdap,Td Vaccine (3 - Td or Tdap) [facility] Start: 10-25-2026 Screening for malign ant neoplasm of cervix [facility] Start: 03-20-2026 DTaP/Tdap/Td vaccine (2 - Td) DTaP/Tdap/Td vaccine (2 - Td) [place], [place] Start: 10-05-2025 End: 10-05-2025 Admission to same day surgery center 10/05/2025 2:30 PM [facility] General Surgery [address] [place] [address] Randa Boudreaux, LIANNA.SERVICE STATION OPERATOR [address] [place] [address] [address] 3 month post op LRYGB 07/06/25 TA General Surgery Comment on above: 3 month post op LRYG B 07/06/25 TA Start: 09-30-2025 End: 09-30-2025 Admission to same day surgery center 09/30/2025 3:00 PM [facility] General Surgery [address] [place] [address] [place] [address] 3 month post op LRYGB 07/06/25 TA General Surgery Comment on above: 3 month post op LRYG B 07/06/25 TA Start: 08-10-2025 End: 08-10-2025 Patient encounter procedure 08/10/2025 11:00 AM EDT Office Visit General Surgery [address] [place] [id number] Randa Boudreaux, LIANNA.SERVICE STATION OPERATOR [address] [id number] 1 month post op LRYGB 07/06/25 TA General Surgery Comment on above: 1 month post op LRYG B 07/06/25 TA Start: 07-22-2025 End: 07-22-2025 Admission to same day surgery center 07/22/2025 11:00 AM EDT Education General Surgery [id number] [place], [place] [address]Alejandra [address] [place] [id number] Ramya Kearney, NENA [address] [place] [address] Post Op LRYGB 07/06/25 TA General Surgery Comment on above: Post Op LRYGB 5 TA Start: 07-13-2025 Screening for malign ant neoplasm of cervix Pap Testing [facility] Start: 07-13-2025 End: 07-13-2025 Patient encounter procedure 07/13/2025 10:30 AM EDT Office Visit General Surgery [address] [place] [address] Randa Boudreaux, SUSTAINABILITY PROJECT COORDINATOR.SERVICE STATION OPERATOR [address] [id number] Post op LRYGB 07/06/25 TA General Surgery Comment on above: Post op LRYGB 5 TA Start: 07-08-2025 End: 07-08-2025 Patient encounter procedure 07/08/2025 1:20 PM EDT Consult NOMAlejandra ARORA [address] [place] [address] Yadiel Shafer DO [address] [facility] [place] [address] RIN ARORA Start: 07-06-2025 End: 07-06-2025 Admission to same day surgery center 07/06/2025 10:30 AM EDT - 07/06/2025 12:45 PM EDT Surgery [facility] Operating Room [address] [place] [address] Janet Malcolm MD [address] [place] [address] LAPAROSCOPIC LONGITUDINAL GASTRECTOMY, GASTRIC RESTRICTIVE PROCEDURE [facility] Operating Room Comment on above: LAPAROSCOPIC LONGITU DINAL GASTRECTOMY, GASTRIC RESTRICTIVE PROCEDURE Start: 07-06-2025 End: 07-06-2025 Laps gstrc rstrictiv px longitudinal gastrectomy LAPAROSCOPIC LONGITUDINAL GASTRECTOMY, GASTRIC RESTRICTIVE PROCEDURE Morbid obesity due to excess calories (HCC) 07/06/2025 10:30 AM EDT [facility] Start: 07-06-2025 Subsequent hospital visit by physician 07/06/2025 10:30 AM EDT Hospital Encounter [facility] [address] [place] [address] Janet Malcolm MD [address] [place] [address] Morbid obesity due to excess calories (HCC) [E66.01] [facility] Comment on above: Morbid obesity due t o excess calories (HCC) [E66.01] Start: 07-01-2025 End: 07-01-2025 Patient encounter procedure 07/01/2025 11:15 AM EDT Office Visit RIN ARORA [address] [place] [id number] Yumiko Brown DO [address] [place] [address] RIN ARORA Start: 06-30-2025 End: 06-30-2025 ambulatory 06/30/2025 8:30 AM EDT Results Only [place] [facility] Laboratory [address] [place] [address] Pre Op [place] [facility] Comment on above: Pre Op Start: 06-30-2025 End: 06-30-2025 Anesthesia consultation 06/30/2025 7:40 AM EDT PAT Pre Anesthesia [address] [place] [address] 1, Pacc [place] [address] [place] [address] DOS 07/06 Pre Anesthesia Comment on above: DOS 07/06 Start: 06-29-2025 End: 06-29-2025 Admission to same day surgery center [facility] Operating Room Comment on above: LAPAROSCOPIC LONGITU DINAL GASTRECTOMY, GASTRIC RESTRICTIVE PROCEDURE Start: 06-29-2025 End: 06-29-2025 Laps gstrc rstrictiv px longitudinal gastrectomy [facility] OR Start: 06-29-2025 Subsequent hospital visit by physician [facility] Operating Room Comment on above: Morbid obesity due t o excess calories (HCC) [E66.01] Start: 06-26-2025 End: 06-26-2025 ambulatory 06/26/2025 2:30 PM EDT Results Only [place] [facility] Laboratory [address] [place] [address] pre-op labs [place] [facility] Laboratory Comment on above: pre-op labs Start: 06-26-2025 End: 06-26-2025 Anesthesia consultation 06/26/2025 1:40 PM EDT PAT Pre Anesthesia [address] [place] [address] 1, Pacc [place] [address] [place] [address] DOS 06/29 Pre Anesthesia Comment on above: DOS 06/29 Start: 06-24-2025 End: 06-24-2025 Admission to same day surgery center 06/24/2025 9:00 AM EDT Education General Surgery [address] [place] [address] Ramya Kearney, NENA [address] [place], [place] [id number] pre op General Surgery Comment on above: pre op Start: 06-23-2025 End: 06-23-2025 Patient encounter procedure 06/23/2025 2:00 PM EDT Office Visit General Surgery [address] [facility] [place] [place] [address] [place] [address] [address] [id number] Pre Op General Surgery Comment on above: Pre Op Start: 06-15-2025 Influenza [facility] Start: 05-24-2025 Subsequent hospital visit by physician 05/24/2025 Hospital Encounter [facility] Operating Room [address] [place] [address] [place] [address] [address] [address] Morbid obesity due to excess calories (HCC) [E66.01] [facility] Operating Room Comment on above: Morbid obesity due t o excess calories (HCC) [E66.01] Start: 05-08-2025 Chase donaldson [facility] Work Phone: Start: 02-19-2025 End: 02-19-2025 Admission to same day surgery center 02/19/2025 9:45 AM EDT Education General Surgery [address] [place], [place] [id number] Laure Dhillon, RD [address] [address] pre op f/u #3 General Surgery Comment on above: pre op f/u #3 Start: 02-12-2025 End: 02-12-2025 Admission to same day surgery center 02/12/2025 9:45 AM EDT Education General Surgery [address] [place] [address] Laure Dhillon, RD [address] [address] pre op f/u #3 General Surgery Comment on above: pre op f/u #3 Start: 02-05-2025 End: 02-05-2025 Patient encounter procedure [facility] Radiology General Comment on above: Encounter for other preprocedural examination [Z01.818] XR before US Start: 01-28-2025 End: 01-28-2025 Patient encounter procedure [facility] Draw Station Comment on above: labs Encounter for other preprocedural examination [Z01.818] Start: 01-23-2025 End: 01-23-2025 Admission to same day surgery center 01/23/2025 1:15 PM EDT [facility] General Surgery [address] [id number] Laure Dhillon, RD [address] [address] Red/Malcolm/0 Diet/[facility] General Surgery Comment on above: Red/Malcolm/0 Diet/ [facility] Start: 01-21-2025 End: 01-21-2025 Patient encounter procedure 01/21/2025 2:15 PM EDT Office Visit General Surgery [address] [place], [place] [id number] Shankar Britt MD [address] [place] [address] Red/Malcolm/0 Diet/[facility] General Surgery Comment on above: Red/Malcolm/0 Diet/ [facility] Start: 01-21-2025 End: 04-22-2025 25-hydroxyvitamin D3 [Mass/volume] in Serum or Plasma VITAMIN D 25 HYDROXY Lab Routine Encounter for other preprocedural examination Expected: 01/21/2025, Expires: 04/22/2025 [facility] Comment on above: Expected: 01/21/2025 , Expires: 04/22/2025 Start: 01-21-2025 End: 04-22-2025 CBC W Auto Differential panel - Blood COMPLETE BLOOD COUNT AND DIFFERENTIAL Lab Routine Encounter for other preprocedural examination Expected: 01/21/2025, Expires: 04/22/2025 [facility] Work Phone: Comment on above: Expected: 01/21/2025 , Expires: 04/22/2025 Start: 01-21-2025 End: 04-22-2025 Cobalamin (Vitamin B12) [Mass/volume] in Serum or Plasma VITAMIN B12 Lab Routine Encounter for other preprocedural examination Expected: 01/21/2025, Expires: 04/22/2025 [facility] Comment on above: Expected: 01/21/2025 , Expires: 04/22/2025 Start: 01-21-2025 End: 04-22-2025 Comprehensive metabolic 2000 panel - Serum or Plasma COMPREHENSIVE METABOLIC PANEL Lab Routine Encounter for other preprocedural examination Expected: 01/21/2025, Expires: 04/22/2025 [facility] Comment on above: Expected: 01/21/2025 , Expires: 04/22/2025 Start: 01-21-2025 End: 04-22-2025 Ferritin [Mass/volume] in Serum or Plasma FERRITIN Lab Routine Encounter for other preprocedural examination Expected: 01/21/2025, Expires: 04/22/2025 [facility] Comment on above: Expected: 01/21/2025 , Expires: 04/22/2025 Start: 01-21-2025 End: 04-22-2025 Folate [Mass/volume] in Serum or Plasma FOLATE, SERUM Lab Routine Encounter for other preprocedural examination Expected: 01/21/2025, Expires: 04/22/2025 [facility] Comment on above: Expected: 01/21/2025 , Expires: 04/22/2025 Start: 01-21-2025 End: 04-22-2025 Hemoglobin A1c in Blood HEMOGLOBIN A1C Lab Routine Encounter for other preprocedural examination Expected: 01/21/2025, Expires: 04/22/2025 [facility] Comment on above: Expected: 01/21/2025 , Expires: 04/22/2025 Start: 01-21-2025 End: 04-22-2025 Iron and Iron binding capacity panel - Serum or Plasma IRON AND TIBC Lab Routine Encounter for other preprocedural examination Expected: 01/21/2025, Expires: 04/22/2025 [facility] Comment on above: Expected: 01/21/2025 , Expires: 04/22/2025 Start: 01-21-2025 End: 04-22-2025 Lipid 1996 panel - Serum or Plasma LIPID PANEL, FASTING Lab Routine Encounter for other preprocedural examination Expected: 01/21/2025, Expires: 04/22/2025 [facility] Comment on above: Expected: 01/21/2025 , Expires: 04/22/2025 Start: 01-21-2025 End: 04-22-2025 Natriuretic peptide.B prohormone N-Terminal [Mass/volume] in Serum or Plasma NT PRO BNP Lab Routine Encounter for other preprocedural examination Expected: 01/21/2025, Expires: 04/22/2025 [facility] Comment on above: Expected: 01/21/2025 , Expires: 04/22/2025 Start: 01-21-2025 End: 04-22-2025 Thyrotropin [Units/volume] in Serum or Plasma THYROID STIMULATING HORMONE Lab Routine Encounter for other preprocedural examination Expected: 01/21/2025, Expires: 04/22/2025 [facility] Comment on above: Expected: 01/21/2025 , Expires: 04/22/2025 Start: 01-21-2025 End: 04-22-2025 VITAMIN B1 (THIAMINE), WHOLE BLOOD VITAMIN B1 (THIAMINE), WHOLE BLOOD Lab Routine Encounter for other preprocedural examination Expected: 01/21/2025, Expires: 04/22/2025 [facility] Comment on above: Expected: 01/21/2025 , Expires: 04/22/2025 Start: 01-20-2025 End: 01-20-2025 Admission to same day surgery center 01/20/2025 12:45 PM EDT [facility] Surgery [address] [place] [address] [place] [address] [place] [address] Red/Malcolm/0 Diet/[facility] General Surgery Comment on above: [facility]/Malcolm/0 [facility]/ [facility] Start: 06-15-2024 Covid-19 Vaccine ( season) Covid-19 Vaccine () [facility] Start: 06-15-2024 Influenza vaccination C [facility] Start: 10-15-2023 Depression Assessment Depression Ass essment [facility] Start: 07-13-2023 Screening for malign ant neoplasm of cervix [facility] Start: 06-15-2023 Covid-19 Vaccine ( season) Covid-19 Vaccine ( season) [facility] Start: 06-15-2023 Influenza vaccination Influenza Vacc ine (#1) [facility] Start: 2023 Screening for malign ant neoplasm of cervix HPV Testing [facility] Start: 05-07-2022 [facility] Work Phone: Start: 05-01-2022 [facility] Work Phone: Start: 12-10-2021 Screening for malign ant neoplasm of cervix Cervical cancer screen [place], [place] Start: 12-07-2020 End: 12-07-2020 Office Visit 12/07/2020 Office Visit Endocrinology Armen Pinto MD [address] [facility] [place] [address] [phone] [facility] Start: 11-08-2020 End: 11-08-2020 Routine 11/08/2020 Routine Obstetrics and Gynecology Gerri Salmeron MD [address] [place] [phone] [facility] peer educator Start: 10-05-2020 End: 10-05-2020 Routine 10/05/2020 Routine Obstetrics and Gynecology Gerri Salmeron MD [address] [place] [address] [phone] [facility] peer educator Start: 07-12-2020 End: 07-12-2020 Initial 07/12/2020 Initial Obstetrics and Gynecology Gerri Salmeron MD [address] [place] [phone] [facility] peer educator Start: 07-11-2015 Screening for malign ant neoplasm of cervix Pap Smear [facility] Start: 2012 Hepatitis B Vaccine (1 of 3 - 19+ 3-dose series) Hepatitis B Vaccine (1 of 3 - 19+ 3-dose series) [facility] Start: 2011 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 Disease Visit Annual PCP Team Chronic Disease Visit [facility] Start: 2011 BP Controlled (<130/80) BP Controlle d (<130/80) [facility] Start: 2011 Depression Screening Depression Scre ening [facility] Start: 2011 Hepatitis C screening Hepatitis C Sc reejairon [facility] Start: 2011 HIV screening HIV Screening [facility] Start: 2009 COVID-19 Vaccine (1) COVID-19 Vaccin e (1) [facility] [employer] Work Phone: Start: 1994 Varicella vaccine (1 of 2 - 2-dose childhood series) Varicella vaccine (1 of 2 - 2-dose childhood series) [facility] Start: 1993 Covid-19 Vaccine (#1) Covid-19 Vacci ne (#1) [facility] Start: 1993 Hepatitis B Vaccine (1 of 3 - 3-dose series) Hepatitis B Vaccine (1 of 3 - 3-dose series) [facility] CBC panel - Blood by Automated count CBC Lab Routine Obesity (BMI 30-39.9) Insulin resistance Low HDL (under 40) ([facility]) Ordered: 12/22/2024 [facility] Comment on above: Ordered: 12/22/2024 CHLAMYDIA TRACHOMATI S (GENITO/STI) CHLAMYDIA TRACHOMATIS (GENITO/STI) Lab Routine Vaginal discharge Ordered: 06/02/2025 [facility] Comment on above: Ordered: 06/02/2025 Comprehensive metabo lic 2000 panel - Serum or Plasma Comprehensive metabolic panel Lab Routine Obesity (BMI 30-39.9) Insulin resistance Low HDL (under 40) (CMS/HCC) Ordered: 12/22/2024 [facility] Comment on above: Ordered: 12/22/2024 End: 01-21-2026 ECG COMPLETE ECG COMPLETE ECG Routine Encounter for other preprocedural examination 1 Occurrences starting 01/21/2025 until 01/21/2026 [facility] Comment on above: 1 Occurrences starti ng 01/21/2025 until 01/21/2026 End: 12-19-2024 EGD DIAGNOSTIC EGD DIAGNOSTIC Endoscopy Routine Obesity, Class II, BMI 35-39.9 1 Occurrences starting 12/21/2023 until 12/19/2024 [facility] Work Phone: Comment on above: 1 Occurrences starti ng 12/21/2023 until 12/19/2024 Hemoglobin A1c/Hemoglobin.total in Blood Hemoglobin A1c Lab Routine Obesity (BMI 30-39.9) Insulin resistance Low HDL (under 40) ([facility]) Ordered: 12/22/2024 [facility] Work Phone: Comment on above: Ordered: 12/22/2024 Insulin, fasting Insulin, fastin g Lab Routine Obesity (BMI 30-39.9) Insulin resistance Low HDL (under 40) ([facility]) Ordered: 12/22/2024 [facility] Comment on above: Ordered: 12/22/2024 Laps gstrc rstrictiv px longitudinal gastrectomy LAPAROSCOPIC LONGITUDINAL GASTRECTOMY, GASTRIC RESTRICTIVE PROCEDURE Morbid obesity due to excess calories (HCC) [facility]V OR Lipid 1996 panel - S gerber or Plasma Lipid panel Lab Routine Obesity (BMI 30-39.9) Insulin resistance Low HDL (under 40) ([facility]) Ordered: 12/22/2024 [facility] Comment on above: Ordered: 12/22/2024 Neisseria gonorrhoea e DNA [Presence] in Unspecified specimen by LARISA with probe detection Neisseria gonorrhea DNA probe, direct Lab Routine Vaginal discharge Ordered: 06/02/2025 [facility] Comment on above: Ordered: 06/02/2025 Patient Education [facility] Work Phone: Patient referral [facility] Work Phone: SURESWAB(R) ADVANCED VAGINITIS PLUS, TMA SURESWAB(R) ADVANCED VAGINITIS PLUS, TMA Pathology and Cytology Routine Exposure to STD Ordered: 06/02/2025 [facility] Work Phone: Comment on above: Ordered: 06/02/2025 Thyrotropin [Units/volume] in Serum or Plasma Tsh+free t4 Lab Routine Obesity (BMI 30-39.9) Insulin resistance Low HDL (under 40) ([facility]) Ordered: 12/22/2024 [facility] Comment on above: Ordered: 12/22/2024 US Abdomen RUQ US ABD RIGHT UPP ER QUADRANT Radiology Routine Class 2 severe obesity with serious comorbidity and body mass index (BMI) of 37.0 to 37.9 in adult, unspecified obesity type ([facility]) 01/21/2024 9:41 AM EDT [facility] Work Phone: End: 02-20-2026 US Abdomen RUQ US ABD RIGHT UPPER QUADRANT Radiology Routine Encounter for other preprocedural examination 1 Occurrences starting 01/21/2025 until 02/20/2026 [facility] Comment on above: 1 Occurrences starti ng 01/21/2025 until 02/20/2026 End: 02-20-2026 XR Chest PA and Lateral XR CHEST 2V FRONTAL/LAT Radiology Routine Encounter for other preprocedural examination 1 Occurrences starting 01/21/2025 until 02/20/2026 [facility] Comment on above: 1 Occurrences starti ng 01/21/2025 until 02/20/2026 [facility] Immunizations Immunization Date Immunization Notes Care Provider [facility] 05-06-2022 measles, mumps and rubella virus vaccine Services [facility] Work Phone: [facility] 05-06-2022 tetanus toxoid, redu vadim diphtheria toxoid, and acellular pertussis vaccine, adsorbed Services [facility] Work Phone: [facility] 01-13-2021 diphtheria, tetanus toxoids and acellular pertussis vaccine, unspecified formulation Gerri Salmeron [facility] Work Phone: 07-22-2019 Human Papillomavirus 9-valent vaccine Nelda Uribe Work Phone: [facility] 02-07-2019 Human Papillomavirus 9-valent vaccine [place] [facility] 12-04-2018 Human Papillomavirus 9-valent vaccine [place] 2 [facility] 03-20-2016 tetanus toxoid, redu vadim diphtheria toxoid, and acellular pertussis vaccine, adsorbed [place] [facility] Payer Category Payer Medicaid [id number] 11-15-2022 Private Health Insurance [facility] MEDICAID Member Subscriber Plan / Payer (Effective 2022-Present) Name: Janay Cruz Relation to Subscriber: Self Name: Janay Cruz Payer ID: Not on file Group ID: Not on file Type: Not on file Address: [address] [id number] 11-15-2022 Private Health Insurance [id number] 1995 Unknown [id number] 20.1.804981.3.579.2. 356 1993 Unknown [id number] 2.840.1.229754.3.579.2. 356 1993 Unknown [id number] 2.0.1.147668.3.579.2. 356 1993 Unknown [id number] 2.840.1.915827.3.579.2. 356 1993 Unknown [id number] 2.0.1.751867.3.579.2. 356 1993 Unknown [id number] 2.840.1.661756.3.579.2. 356 1993 Unknown [id number] 2.840.1.568503.3.579.2. 356 1993 Unknown [id number] 2.840.1.578484.3.579.2. 356 1993 Unknown [id number] 2.840.1.010561.3.579.2. 356 1993 Unknown [id number] 2.16.840.1.383461.3.579.2. 356 1993 Unknown [id number] 2.16.840.1.256281.3.579.2. 356 1993 Unknown [id number] 2.16.840.1.096347.3.579.2. 182 1993 Unknown [id number] 2.16.840.1.360214.3.579.2. 182 1993 Unknown [id number] 2.16.840.1.837268.3.579.2. 182 1993 Unknown [id number] 2.16.840.1.454880.3.579.2. 182 1993 Unknown [id number] 2.16.840.1.636546.3.579.2. 593 1993 Unknown [id number] 2.16840.1.099404.3.579.2. 593 1993 Unknown [id number] 2.16840.1.895774.3.579.2. 716 1993 Unknown [id number] 2.16840.1.113901.3.579.2. 1259 1993 Unknown [id number] 2.16840.1.097440.3.579.2. 1259 1993 Unknown [id number] 2.16840.1.084933.3.579.2. 1259 10-15-1961 Private Health Insurance [id number] 10-15-1961 Self-pay [id number] Unknown [id number] 2.16.840.1.061643.3.579.2. 531 Social History Date Type Detail Facility Tobacco smoking stat [facility] Unknown if ever smoked [facility] Start: 1995 Sex Assigned At Not on file [facility] Start: 06-14-2020 End: 12-22-2024 Tobacco smoking status MOIS Former smoker [facility] Start: 03-14-2005 End: 10-15-2019 History of tobacco use Current smoker [facility] Start: 06-14-2020 End: 12-22-2024 Cigarettes smoked current (pack per day) - Reported [facility] Start: 06-14-2020 End: 12-22-2024 Tobacco use and exposure Never used [facility] Start: 06-14-2020 End: 01-13-2021 Alcohol intake Current non-drinker of alcohol (finding) [facility] Start: 12-04-2018 Tobacco Comment Vaping [facility] Exposure to SARS-CoV -2 (event) Not sure [facility] Start: 04-27-2020 [facility] Start: 1995 Sex Assigned At Female [facility] Start: 05-08-2025 Tobacco smoking status NHIS Tobacco smoking consumption unknown [facility] Start: 11-29-2023 End: 12-22-2024 Area Deprivation Index [facility] Start: 05-03-2015 National Score (1-100), lower number is lower risk 53 [facility] Start: 04-04-2021 Gender identity Identifies as female gender (finding) [facility] Start: 12-13-2023 Sexual orientation Heterosexual (finding) [facility] End: 10-15-2019 History of tobacco use Cigarette Smoker [facility] Work Phone: Start: 01-11-2024 End: 06-26-2025 Tobacco use and exposure Former smokeless tobacco user [facility] Work Phone: Start: 01-11-2024 End: 07-08-2025 Alcohol intake Ex-drinker (finding) [facility] Start: 01-11-2024 Tobacco Comment Quit 6 years ago [facility] How often to you hav e a drink containing alcohol? Never [facility] Start: 09-18-2023 Education 13 [facility] Start: 09-18-2023 Alcohol Comment Caffeine intake: 1- c green tea [facility] Start: 05-08-2025 Alcohol intake Alcohol Use Details [facility] Goals Date Patient Goal Desired Activity /State Personal health goal Functional Status Date Assessment Result Facility 05-07-2022 Functional status Patient at Baseline [facility] Work Phone: Mental Status Date Assessment Result Facility 05-07-2022 Cognitive function Cognitive Sta tus Patient at Baseline [facility] Work Phone: Clinical Notes 05-05-2022 to 07-15-2025 Carrie Robles - 07/08/2025 1:20 PM EDTPatient InstructionsLotus Calles APRN.MORENO - 06/26/2025 1:40 PM EDTALotus shay APRN.MORENO - 06/26/2025 1:40 PM EDTPatient Instructions Note Date & Type Note Facility 07-15-2025 Note HNO ID: [id number] Author: RAMYA KEARNEY RD Service: ? Author Type: Registered Dietitian Type: Progress Notes Filed: 07/15/2025 12:02 Note Text: AMBULATORY PATIENT EDUCATION NOTE-Shared Nutrition Group TOPIC: [...] per day OR 1 Multivitamin capsule and 1138-1077 mg calcium citrate per day OR 2 Multivitamin soft chews per day + 3 calcium citrate soft chews + 1 iron soft chew per day [email or web address].com - [facility]: 1 Bariatric Multivitamin w/ iron (capsule or chewable) and 6611-1600 mg calcium citrate per day www.S[email or web address] - Bariatric Choice: 1 Once Daily Bariatric Multivitamin capsule and 5282-3199 mg calcium citrate per day OR 4 All-in-One Bariatric Multivitamin chewables per day www.[email or web address] Cred.[email or web address] - Bariatric Advantage: 1 Ultra Solo multivitamin w/ iron (chewable or capsule) OR 2 chewable Advanced Multi EA w/ iron and 7469-0518 mg calcium citrate per day OR 2 Multi Chewy Bites and 5191-5170 mg calcium citrate and 45-60 mg iron per day www.[email or web address].[email or web address] - Bariatric Pal: 1 Multivitamin One (chewable or capsule) and 0538-9825 mg calcium citrate per day OR 4 All-in-One Multivitamin chewables per day [email or web address] [email or web address]-vitamins - [facility]: 1 Just One Bariatric Multivitamin w/ iron (chewable or capsule) and 3550-0187 mg calcium citrate per day www.[email or web address].[email or web address] - [place]: 2 Multivitamin w/ iron tablets and 1722-5097 mg calcium citrate per day www.[email or web address].[email or web address] - Continue daily Super B-Complex/B100 until you are 3 months post-op 2. Protein goal: 79 grams protein/day 3. Fluid goal: 64 ounces per day (no carbonation, caffeine, calories, alcohol) - separate foods and fluids by 20 minutes, small sips, no straw 4. Exercise goal: begin low intensity exercise until cleared by surgeon. 5. Practice mindful eating habits-take small portions, eat slowly, and chew thoroughly You have lost 8% total weight loss (average 6-9% at 1 month) The Bariatric AND Metabolic [place] at [facility] has 2 virtual support group meetings: This is the Webex link with meeting number that will be used for all of the SUNDAY virtual support groups this year, on the Sunday of each month 5:30-6:30PM Join from the meeting link [email or web address] Join by meeting number Meeting number (access code): [id number] Meeting password: [email or web address] The schedule with dates, times, topics, and facilitators can be found here: [email or web address] This is the [employer] link with meeting number that will be used for the Open Discussion ( Food for Thought ) support group on the Sunday of each month 5:30-6:30PM Join from the meeting link [email or web address] Join by meeting number Meeting number (access code): [id number] Meeting password: [email or web address] Geetha t (more content not included)... 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 - ondansetron orally disintegrating (ZOFRAN ODT) 4 mg disintegrating tablet Take 1 tablet by mouth every 8 hours as needed for nausea/vomiting for up to 60 doses. - senna-docusate (SENNA-S) 8.6-50 mg per tablet Take 1 tablet by mouth once daily. - omeprazole (PRILOSEC) 40 mg capsule Take 1 capsule by mouth once daily. Encounter Status:Closed by RAMYA KEARNEY on 07/15/25 [facility] 07-08-2025 History of Present illness Narrative Reason for Appointment: Patient ID: Janay Cruz is a 30 y.o. female who presents for Pre-op Visit Patient presents today for Pre Op appointment. 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 [facility] [facility] MEDICATIONS Current Outpatient Medications Medication Instructions omeprazole (PRILOSEC) 40 mg, Daily RT ondansetron ODT (ZOFRAN-ODT) 4 mg, Every 8 hours PRN senna-docusate (Mariya-Colace) 8.6-50 MG tablet 1 tablet, Daily RT ALLERGIES No Known Allergies PROBLEMS Active Ambulatory Problems Diagnosis Date Noted Carpal tunnel syndrome 03/01/2023 Gestational diabetes mellitus (GDM) in third trimester ([facility]) 03/01/2023 Insulin resistance 08/02/2018 Obesity (BMI 30-39.9) 08/02/2018 Encounter to establish care 08/29/2023 Anxiety and depression 08/29/2023 High serum dehydroepiandrosterone (DHEA) 09/27/2023 High serum testosterone 11/05/2023 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 Resolved Ambulatory Problems Diagnosis Date Noted PCOS (polycystic ovarian syndrome) 08/02/2018 Past Medical History: Diagnosis Date Anxiety Elevated DHEA Gestational diabetes ([facility]) Heart palpitations Hirsutism Vitamin D deficiency HISTORY PAST MEDICAL HISTORY SOCIAL HISTORY Past Medical History: Diagnosis Date Anxiety zoloft no down to 25 mg weening off Elevated DHEA Gestational diabetes ([facility]) Heart palpitations Hirsutism PCOS (polycystic ovarian syndrome) Vitamin D deficiency Social History Tobacco Use Smoking status: Former Current packs/day: 0.00 Types: Cigarettes Quit date: 10/15/2019 Years since quittin.7 Smokeless tobacco: Never Vaping Use Vaping status: Never Used Substance Use Topics Alcohol use: Not Currently Comment: Caffeine intake: 1- c green tea Drug use: Never FAMILY HISTORY Family History Problem Relation Name Age of Onset No Known Problems Mother No Known Problems Father No Known Problems Sister Healthy No Known Problems Sister Healthy No Known Problems Sister Healthy No Known Problems Brother Celiac disease Maternal Grandmother Diabetes Paternal Grandmother Hypertension Paternal Grandmother Arthritis Paternal Grandmother SURGICAL HISTORY Past Surgical History: Procedure Laterality Date CONTRACEPTIVE CAPSULE REMOVAL 04/04/2023 Nexplanon removal INSERTION OF CONTRACEPTIVE CAPSULE 06/28/2022 Nexplanon insertion INTRAUTERINE DEVICE INSERTION 04/11/2023 Paragard TONSILECTOMY, ADENOIDECTOMY, BILATERAL MYRINGOTOMY AND TUBES 2017 TONSILLECTOMY T & A, age 24 TUBAL LIGATION Bilateral 09/04/2023 VAGINAL DELIVERY 2010 x4: 2010, 2015, 2020, 05/05/2022 REVIEW OF SYSTEMS Review of Systems: Review of Systems Constitutional: Negative. HENT: Negative. Eyes: Negative. Respiratory: Negative. Cardiovascular: Negative. Gastrointestinal: Negative. Genitourinary: Negative. Musculoskeletal: Negative. Skin: Negative. Neurological: Negative. All other systems reviewed and are negative. Hematological: Negative. Endocrine: Negative. Allergic/Immunologic: Negative. OBJECTIVE Objective: Physical Exam Constitutional: Appearance: Normal appearance. She is well-developed. Cardiovascular: Rate and Rhythm: Normal rate and regular rhythm. Pulmonary: Effort: Pulmonary effort is normal. Breath sounds: Normal breath sounds. Abdominal: General: Bowel sounds are normal. There is no distension. Palpations: Abdomen is soft. Tenderness: There is no abdominal tenderness. There is no guarding or rebound. Musculoskeletal: General: No swelling. Normal range of motion. Right lower leg: No edema. Left lower leg: No edema. Neurological: Mental Status: She is alert and oriented to person, place, and time. Skin: General: Skin is warm and dry. Psychiatric: Mood and Affect: Mood normal. Behavior: Behavior normal. Vitals and nursing note reviewed. Exam conducted with a structural iron worker present. Vitals: Estimated body mass index is 39.64 kg/m as calculated from the following: Height as of 12/22/24: 5' 3 . Weight as of 06/02/25: 223 lb 12.8 oz. BP: No LMP recorded. ASSESSMENT & PLAN ICD-10-CM 1. Pre-op examination Z01.818 2. 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 I have discussed conservative management vs. surgical management with the patient in detail and patient desires surgical management at this time. Patient will undergo removal of hymenal remnants on 08-07-25. Surgical consents were signed, mmc was reviewed, and patient is to proceed to [facility] OR. Follow Up: Patient is to follow up between 1-2 weeks post operative to assess proper healing and recovery from procedure. Documented by Lauren Kasper LPN on behalf of: Yadiel Shafer DO documented in this encounter [facility] 07-06-2025 Note HNO ID: [id number] Author: RANDA BOUDREAUX APRN.SERVICE STATION OPERATOR Service: ? Author Type: Nurse Practitioner Type: Progress Notes Filed: 07/06/2025 13:38 Note Text: Assessment BMI Surgical PostOp Clinic Note July 06, 2025 INTERVAL HISTORY: Janay Cruz is here for 7-10 day post op visit. Post-Op Sleeve Gastrectomy: - Janay Cruz is one week post-op from sleeve gastrectomy. - Concerns about suture discomfort. - Using [place] [employer] shakes; until she noticed high carbohydrate content. - Previously experienced headaches and nausea with other protein shakes. - Inquires about low-carb shake options. - Taking omeprazole and senna daily. - Denies significant hunger. - c/o painful incision Pathology: FINAL DIAGNOSIS Portion of stomach, excision: - Segment of gastric body/fundus with no diagnostic abnormality. Index Surgery Date of Surgery: 06/29/2025 Surgeon: Janet Malcolm MD Surgical Procedure: LAPAROSCOPIC LONGITUDINAL GASTRECTOMY, GASTRIC RESTRICTIVE PROCEDURE Pre-surgical weight: 98 kg (216 lb 0.8 oz) Override Index Surgery Information? No Other Bariatric Surgeries None Visit: 7 days Today's Visit: Wt 93.6 kg (206 lb 5.6 oz) BMI 35.4 kg/m2 BMI 35.40 kg/(m2) Last Visit: Wt: 98 kg (216 lb 0.8 oz) BMI: 37.09 kg/(m2) Total weight loss: 4.4 kg (9 lb 11.2 oz) Lawrence weight: 66.1 kg (145 lb 10.6 oz) Excess weight: 31.9 kg (70 lb 6.2 oz) % of excess body weight lost: 4.4 kg (9 lb 11.2 oz) (13.78% of excess weight loss) Diet: phase 2 Sugar: Avoiding Dumping syndrome/symptoms: No Wound issues: Yes - R mid quadrant incision is painful, swollen. Abdominal pain: No Nausea or vomiting: No Reflux: No Gallbladder symptoms: No Hydration status: Doing well. Meeting fluid recommendations from RD? Pretty close to meeting 64 oz per day Do you feel dry/dark urine/progressive fatigue :No Have you had a bowel movement: Yes Symptoms of vitamin deficiency: No Taking PPI Yes If prescribed homegoing lovenox - are you taking your lovenox? N/A Activity: walking, low impact activity Current Outpatient Medications Medication Sig acetaminophen (TYLENOL) 325 mg cap Take 2 capsules by mouth as needed. omeprazole (PRILOSEC) 40 mg capsule Take 1 capsule by mouth once daily. ondansetron orally disintegrating (ZOFRAN ODT) 4 mg disintegrating tablet Take 1 tablet by mouth every 8 hours as needed for nausea/vomiting for up to 60 doses. (Patient not taking: Reported on 07/06/2025) senna-docusate (SENNA-S) 8.6-50 mg per tablet Take 1 tablet by mouth once daily. (Patient not taking: Reported on 07/06/2025) No current facility-administered medications for this visit. Patient Active Problem List High blood pressure Class 2 obesity with body mass index (BMI) of 37.0 to 37.9 in adult Anxiety disorder, unspecified Insulin resistance PCOS (polycystic ovarian syndrome) Resolved Hospital Problems No resolved problems to display. REVIEW OF SYSTEMS: See HPI PHYSICAL EXAM: BP 109/78 Pulse 72 Temp 36.5 ?C (97.7 ?F) (Oral) Ht 162.6 cm (5' 4.02 ) Wt 93.6 kg (206 lb 5.6 oz) LMP 05/29/2025 BMI 35.40 kg/m? AANDO, well appearing, pleasant, no distress Abdomen soft, no distention Incisions: mildly tender, R mid abdominal incision is tender. No erythema or drainage. Indented with some surrounding swelling. Impression: Janay Cruz is a 30 year old female with Class II obesity who presented today for their initial post op s/p LAPAROSCOPIC LONGITUDINAL GASTRECTOMY, GASTRIC RESTRICTIVE PROCEDURE 1. Encounter for surgical aftercare following surgery of digestive system (Z48.815) 2. 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 - Continue omeprazole daily - Continue senna daily to prevent constipation; may adjust or discontinue if stools become loose. - Continue Zofran as needed for nausea; refill available. - Apply ice packs to incisions as needed for incisional swelling and discomfort; may use Tylenol for pain. - Restrict physical activity for 3 more weeks: no lifting, pushing, or pulling >10-15 lbs; walking permitted; - Maintain current liquid diet for one more week, then transition to Phase 3, protein pureed diet at 2 weeks post-op; - Provided education on appropriate protein shakes and foods; - Continue B-complex for 3 months; start bariatric multivitamin at 2 weeks post-op or when available. - Provided list of recommended bariatric vitamins and supplements. 3. Class 2 obesity without serious comorbidity with body mass index (BMI) of 35.0 to 35.9 in adult, unspecified obesity type (E66.812) - weight decreasing Plan: Next visit 1 month post op visit. Randa Boudreaux APRN.SERVICE STATION OPERATOR Recording using [employer] software for draft documentation of the visit was discussed with the patient/authorized digital sales representative; all q (more content not included)... [facility] 06-30-2025 Note HNO ID: [id number] Author: JANET MALCOLM MD Service: General Surgery Author Type: Physician Type: Progress Notes Filed: 06/30/2025 17:04 Note Text: Documentation Query Please specify a diagnosis associated with the Clinical Indicators for this patient Obesity class 2 This document will become part of the patient's medical record. [facility] 06-29-2025 Note HNO ID: [id number] Author: JACQUELYN ANDERSON AA Service: Anesthesiology Author Type: Tufter Hand Type: Anesthesia Procedure Notes Filed: 06/29/2025 08:24 Note Text: ANESTHESIOLOGY PROCEDURE NOTE PIV General Information Procedure Start Time/Medication Administration: [...] Left Location: Hand Imaging Guidance Used: No SIGNATURE: TANIA Angeles PATIENT NAME: Janay Cruz DATE: June 29, 2025 TIME: 8:24 AM CSN: [id number] [facility] 06-29-2025 Note HNO ID: [id number] Author: JACQUELYN ANDERSON AA Service: Anesthesiology Author Type: Tufter Hand Type: Anesthesia Procedure Notes Filed: 06/29/2025 08:16 Note Text: ANESTHESIOLOGY PROCEDURE NOTE Airway General Information Procedure Start Time/Medication Administration: 06/29/2025 7:53 AM Procedure End Time: 06/29/2025 7:56 AM Patient location during procedure: OR Timeout Performed Pre-procedure: timeout performed Consent Obtained: Yes Patient identity confirmed: arm band Staffing Anesthesiologist: Jolene Murillo I, MD CAA: Jacquelyn Anderson AA CAA Student: Meghana Mart AA Student Performed by: CLARKE student Indications and Patient Condition Indications for airway management: anesthesia Preoxygenated: yes anesthesia circuit Method: sleep Difficult Mask: No Final Airway Details Final airway type: endotracheal airwayFinal Endotracheal Airway: ETT Cuffed: yes Successful intubation technique: video laryngoscopy Devices used: [employer] Endotracheal tube insertion site: oral Blade: Alon Blade size: #3 ETT size (mm): 7.0 Measured from: lips Measurement (cm): 21 Placement verified by: chest auscultation and capnometry Cormack-Lehane Classification: grade I - full view of glottis Number of attempts at approach: 1 Airway not difficult SIGNATURE: TANIA Angeles PATIENT NAME: Janay Cruz DATE: June 29, 2025 TIME: 8:14 AM CSN: [id number] [facility] 06-29-2025 Note HNO ID: [id number] Author: NITZA SINGH RN Service: Nursing Author Type: Registered Nurse Type: Nursing Progress Note Filed: 06/29/2025 07:29 Note Text: Patient has small bug bite right distal tib fib. No surrounding erythema or discharge noted. [facility] 06-26-2025 Instructions Lotus Calles APRN.SERVICE STATION OPERATOR - 06/26/2025 1:54 PM EDT PATIENT PREOPERATIVE INSTRUCTIONS Janet Malcolm has scheduled you for your procedure at this surgery center: [facility]: [phone] --[id number] [address]. Please check in on the 1st floor at registration desk 6. Please read below carefully for your personalized instructions. Dietary Restrictions: Follow surgeon's dietary restrictions (i.e. clear liquid diet, bowel prep, etc) Medications: Unless instructed differently below, stay on all of your medications until your surgery. If you start any new medications after today's visit, please contact your surgeon. Pre-Surgery Med Instructions Medication Instructions senna-docusate (SENNA-S) 8.6-50 mg per tablet Do not take the day of surgery Blood Thinning Medications: - Hold NSAIDS (Ibuprofen, Advil, Aleve, Motrin, Celebrex, Mobic, etc.) 7 days before surgery, as directed by your surgeon. - Hold Aspirin 7 days before surgery, as directed by your surgeon. - Hold all herbals and dietary supplements 7 days before surgery. - You may take Tylenol (Acetaminophen) or any of your pain medications that do not contain aspirin or NSAIDS as needed. Important Reminders: - If you are prescribed inhalers for breathing, continue using them. - If you use CPAP/BIPAP, and will be staying over night, bring the machine with you to the surgery center. - If you use home O2, please bring with you to the surgery center - Please abstain from cannabis use for one week prior to surgery - Candy, mints, gum, and tobacco products are NOT permitted the morning of surgery. - Hearing aids, dentures and glasses may be worn the morning of surgery. - NO jewelry, body piercings, makeup, hairpins or contacts are to be worn the day of surgery. If you develop symptoms such as a fever, cold, or flu, or have other changes to your health within TWO DAYS of scheduled surgery or the morning of surgery, please contact the surgery center above. Personal Belongings: -Please have photo ID and insurance cards. -If you do not have a copy of advance directives on file with us, please bring a copy with you on the day of surgery. - Leave ALL valuables and money at home or with family members. For Outpatient Procedures: - YOU MUST HAVE A RESPONSIBLE ANIMAL LABORATORY TECHNICIAN TAKE YOU HOME. A LITIGATION ASSOCIATE OR RICE FARMER CANNOT BE MADE A RESPONSIBLE ANIMAL LABORATORY TECHNICIAN. - We recommend that a responsible person stays with you overnight to take care of you. - You cannot stay in a hotel alone after outpatient surgery. You will not be permitted to have your surgery, if you do not have someone to take care of you. Arrival Time for Surgery: - The Surgery Center or hospital where you are having surgery will call the afternoon before surgery (or Sunday for Sunday surgery) with a scheduled arrival time. - If you have not heard by 4 pm, please contact the surgery center above. Please be aware that emergency situations arise, which may delay or change your surgical time. If this happens, we will notify you as soon as possible and regret any inconvenience. If you already have an Advance Directive, please fax a copy to [phone] or email to for it to be added to your chart. If you do not have an Advance Directive, you can find the appropriate form and more information at [email or web address]. We recommend that you complete the Advance Directive form found on the website and bring it with you the day of your surgery. It can be witnessed and scanned into your chart that day. documented in this encounter [facility] 06-26-2025 History and physical note HISTORY AND PHYSICAL EXAMINATION SERVICE DATE: 06/26/2025 SERVICE TIME: 1:57 PM PRIMARY CARE PHYSICIAN: No primary care provider on file. REASON FOR VISIT: Janay Cruz is a 30 year old female who is scheduled for LAPAROSCOPIC LONGITUDINAL GASTRECTOMY, GASTRIC RESTRICTIVE PROCEDURE at the request of Dr. Janet Malcolm for consultation. My final recommendation will be communicated back to the requesting physician by way of shared medical record or letter. Assessment High blood pressure Assessment: stable, asymptomatic Last 5 Encounter BP Readings: Date: BP: 06/26/2025 109/73 06/23/2025 146/79 01/21/2025 145/78 11/29/2023 144/68 PCOS (polycystic ovarian syndrome) Assessment: stable, not currently on medication Anxiety disorder, unspecified Assessment: denies panic in hospital setting Obesity, Class II, BMI 35-39.9 Assessment: Body mass index is 37.09 kg/m . ANESTHESIA FINDINGS: Intubation History: No history of difficult intubation Significant Anesthesia Considerations: none Airway History: No history of difficult airway Stanley Activity Status Index: METS: Walk indoors, such as around the house (1.75 METs) Do light work around the house, such as dusting or washing dishes (2.70 METs) Take care of self; that is eating, dressing, bathing, using the toilet (2.75 METs) Walk a block or two on level ground (2.75 METs) Do moderate work around the house, such as vacuuming, sweeping floors, or carrying in groceries (3.50 METs) Do yardwork, such as raking leaves, weeding, or pushing a power mower (4.50 METs) Climb a flight of stairs or walk up a hill (5.50 METs) Participate in moderate recreational activites, such as golf, bowling, dancing, doubles tennis, or throwing a baseball or football (6.00 METs) DASI Score: 29.45 Patient denies any chest pain or undue shortness of breath with the above physical activity. Clinical Frailty Scale: 2. Well STOP-Bang Score: Has or is being treated for high blood pressure Denies snoring loudly Denies feeling tired, fatigued, or sleepy during the daytime Has not been observed to stop breathing or choking/gasping during sleep BMI less than or equal to 35 kg/m^2 Patient 50 years old or younger Does not have a large neck Non-male patient STOP-Bang Score: 1 [id number] Score: Age: <65 Sex: female CHF history: No Hypertension history: Yes Stroke/TIA/thromboembolism history: No Vascular disease history: No Diabetes history: No [id number] Score: 2 ARISCAT Score: Age: <=50 Preoperative SpO2: >=96% Respiratory infection in the last month: No Preoperative anemia: Yes Duration of surgery: 2-3 hrs Emergency procedure: No ARISCAT Score: I - PHYSICAL EVALUATION AIRWAY Patient intubated: No. Tracheostomy tube not present Mallampati: II. TM distance: >3 FB. Neck ROM: full ROM without neurological symptoms. Mouth openin FB. Short neck: yes. Thick neck: yes Hutchinson present: no Lip Bite Test: II Microretrognathia/Micronagthia/Rece ssed Chin: No DENTAL Dental findings: teeth intact. II - ANESTHESIA PLAN Anesthetic plan additional comments: *PACC/TCI - anesthesia choice. Informed Consent Prepared for surgery: This patient is optimally prepared for surgery. CONSULTS: Patient does not require consults for optimization at this time. The Following Tests/Procedures Have Been Initiated: Labs per surgeon Planned Anesthetic: Per anesthesia choice Subjective CHIEF COMPLAINT: Morbid obesity due to excess calories (HCC) [E66.01] HPI: Patient is a 30 year old FEMALE presenting for pre-op evaluation for the above procedure. Patient denies any chest pain, shortness of breath, palpitations, fever/chills, nausea/vomiting, fatigue, or diarrhea. REVIEW OF SYSTEMS: PAIN ASSESSMENT: General: No weight loss, malaise or fevers. Neuro: No history of TIA's, stroke, FINISHING AND SHIPPING SUPERVISOR tumor, impaired sensorium, hemiplegia, paraplegia or quadraplegia. No neurological symptoms or problems. Respiratory: No history of current cough or dyspnea, or pneumonia in the past 6 weeks. No history of respiratory/pulmonary symptoms or problems. Cardiovascular: Positive for: HTN, Negative for CAD, Chest Pain, CHF, DVT/PE GI: No history of GI symptoms or problems. No history of esophageal varices, recent ascites, or ETOH greater than 2 drinks per day. : No history of dysuria, frequency or incontinence,, stones or chronic kidney disease MEDICAL LABORATORY TECHNICIAN: Negative for abnormal vaginal bleeding, abnormal vaginal discharge. : Denies, Patient's last menstrual period was 01/16/2025. Endocrine: PCOS Hematology: No history of bleeding or clotting disorder. Pt is not taking anti-coagulation or platelet medications. No history of hematological symptoms or problems. Oncology: No history of CA metastasis, chemo within 30 days, or radiotherapy within 90 days. Has not lost 10% of body wt in 6 months. No history of oncological symptoms or problems. Implanted Devices: No Psych: Anxiety Marijuana use: No Musculoskeletal: Body mass index is 37.09 kg/m . Skin: Negative for lesions, rash and itching. The patient has the following: ACTIVE PROBLEM LIST Obesity, Class II, Bmi 35-39.9 Anxiety Disorder, Unspecified High Blood Pressure Insulin Resistance Pcos (Polycystic Ovarian Syndrome) Covid Immunization Dates This patient has no relevant Health Maintenance data. PAST MEDICAL HISTORY Diagnosis Date Anxiety Hypertension PCOS (polycystic ovarian syndrome) No past surgical history on file. No family history on file. SOCIAL HISTORY[1] Prior to Admission medications as of 06/23/25 1431 Medication Sig Last Dose Taking oxyCODONE IR (ROXICODONE) 5 mg immediate release tablet Take 1 tablet by mouth every 8 hours as needed for pain for up to 3 days. ondansetron orally disintegrating (ZOFRAN ODT) 4 mg disintegrating tablet Take 1 tablet by mouth every 8 hours as needed for nausea/vomiting for up to 60 doses. senna-docusate (SENNA-S) 8.6-50 mg per tablet Take 1 tablet by mouth once daily. omeprazole (PRILOSEC) 40 mg capsule Take 1 capsule by mouth once daily. spironolactone (ALDACTONE) 50 mg tablet Take 50 mg by mouth every morning. Patient not taking: Reported on 06/23/2025 No medication comments found. ALLERGIES No Known Allergies Objective PHYSICAL EXAM: VITALS: BP 109/73 Pulse 78 Temp (Src) 98 (Oral) Resp 14 Ht 5' 4 (1.63m) Wt 216 lb 0.8 oz (98.0kg) SpO2 97% LMP 05/29/2025 BMI 37.07 kg/(m^2). General: Alert and oriented, No acute distress Skin: Normal color, no rash, no lesions. HEENT: EOM, pupils equal, round and reactive. Cardiovascular: Normal S1 & S2, no rubs, murmurs or gallops. No JVD. Pulse regular. Lungs: Normal breath sounds, no wheezes or crackles. Extremities: No deformity, no edema or tenderness, no joint swelling or clubbing. Neurological: Normal cognition and motor skills. Diagnostic tests reviewed for today's visit: Lab Value Units Date High Low HB 13.8 g/dL 01/28/2025 15.5 11.5 HCT 42.8 % 01/28/2025 46.0 36.0 WBC 6.99 k/uL 01/28/2025 11.00 3.70 PLT 287 k/uL 01/28/2025 400 150 NA 141 mmol/L 01/28/2025 144 136 K 4.3 mmol/L 01/28/2025 5.1 3.7 GLUC 100 mg/dL 01/28/2025 99 74 BUN 12 mg/dL 01/28/2025 21 7 CREAT 0.79 mg/dL 01/28/2025 0.96 0.58 PTSEC No results within date range. INR No results within date range. APTT No results within date range. ALT 176 U/L 01/28/2025 38 7 AST 60 U/L 01/28/2025 35 13 TBILI 0.6 mg/dL 01/28/2025 1.3 0.2 TSH 1.180 mIU/L 01/28/2025 4.200 0.270 Hemoglobin A1C (%) Date Value 01/28/2025 5.0 01/21/2024 5.0 Most recent EKG Recent Results (from the past 8760 hours) ECG COMPLETE Collection Time: 01/28/25 11:12 AM Result Value Ventricular Rate 52 Atrial Rate 52 P-R Interval 150 QRS Duration 88 QT Interval 442 QTC Calculation (Bazett) 411 Calculated P Niles 44 Calculated R Niles 72 Calculated T Niles -3 Impression SINUS BRADYCARDIA ABNORMAL QRS-T ANGLE, CONSIDER PRIMARY T WAVE ABNORMALITY ABNORMAL ECG Confirmed by MARLEE BARFIELD MD ([id number]) on 01/28/2025 1:37:02 PM Instructions Given to Patient: Instructions located in the after visit summary. Patient given verbal and written preop instructions and voices comprehension and compliance. SIGNATURE: Lotus Calles APRN.SERVICE STATION OPERATOR PATIENT NAME: Janay Cruz DATE: 06/26/2025 TIME: 1:57 PM [1] Social History Tobacco Use Smoking status: Former Types: Cigarettes Smokeless tobacco: Former Tobacco comments: Quit 6 years ago Substance Use Topics Alcohol use: Not Currently Drug use: Never [facility] 06-26-2025 History and physical note HISTORY AND PHYSICAL EXAMINATION SERVICE DATE: 06/26/2025 SERVICE TIME: 1:57 PM PRIMARY CARE PHYSICIAN: No primary care provider on file. REASON FOR VISIT: Janay Cruz is a 30 year old female who is scheduled for LAPAROSCOPIC LONGITUDINAL GASTRECTOMY, GASTRIC RESTRICTIVE PROCEDURE at the request of Dr. Janet Malcolm for consultation. My final recommendation will be communicated back to the requesting physician by way of shared medical record or letter. Assessment High blood pressure Assessment: stable, asymptomatic Last 5 Encounter BP Readings: Date: BP: 06/26/2025 109/73 06/23/2025 146/79 01/21/2025 145/78 11/29/2023 144/68 PCOS (polycystic ovarian syndrome) Assessment: stable, not currently on medication Anxiety disorder, unspecified Assessment: denies panic in hospital setting Obesity, Class II, BMI 35-39.9 Assessment: Body mass index is 37.09 kg/m . ANESTHESIA FINDINGS: Intubation History: No history of difficult intubation Significant Anesthesia Considerations: none Airway History: No history of difficult airway Stanley Activity Status Index: METS: Walk indoors, such as around the house (1.75 METs) Do light work around the house, such as dusting or washing dishes (2.70 METs) Take care of self; that is eating, dressing, bathing, using the toilet (2.75 METs) Walk a block or two on level ground (2.75 METs) Do moderate work around the house, such as vacuuming, sweeping floors, or carrying in groceries (3.50 METs) Do yardwork, such as raking leaves, weeding, or pushing a power mower (4.50 METs) Climb a flight of stairs or walk up a hill (5.50 METs) Participate in moderate recreational activites, such as golf, bowling, dancing, doubles tennis, or throwing a baseball or football (6.00 METs) DASI Score: 29.45 Patient denies any chest pain or undue shortness of breath with the above physical activity. Clinical Frailty Scale: 2. Well STOP-Bang Score: Has or is being treated for high blood pressure Denies snoring loudly Denies feeling tired, fatigued, or sleepy during the daytime Has not been observed to stop breathing or choking/gasping during sleep BMI less than or equal to 35 kg/m^2 Patient 50 years old or younger Does not have a large neck Non-male patient STOP-Bang Score: 1 [id number] Score: Age: <65 Sex: female CHF history: No Hypertension history: Yes Stroke/TIA/thromboembolism history: No Vascular disease history: No Diabetes history: No [id number] Score: 2 ARISCAT Score: Age: <=50 Preoperative SpO2: >=96% Respiratory infection in the last month: No Preoperative anemia: Yes Duration of surgery: 2-3 hrs Emergency procedure: No ARISCAT Score: I - PHYSICAL EVALUATION AIRWAY Patient intubated: No. Tracheostomy tube not present Mallampati: II. TM distance: >3 FB. Neck ROM: full ROM without neurological symptoms. Mouth openin FB. Short neck: yes. Thick neck: yes Hutchinson present: no Lip Bite Test: II Microretrognathia/Micronagthia/Rece ssed Chin: No DENTAL Dental findings: teeth intact. II - ANESTHESIA PLAN Anesthetic plan additional comments: *PACC/TCI - anesthesia choice. Informed Consent Prepared for surgery: This patient is optimally prepared for surgery. CONSULTS: Patient does not require consults for optimization at this time. The Following Tests/Procedures Have Been Initiated: Labs per surgeon Planned Anesthetic: Per anesthesia choice Subjective CHIEF COMPLAINT: Morbid obesity due to excess calories (HCC) [E66.01] HPI: Patient is a 30 year old FEMALE presenting for pre-op evaluation for the above procedure. Patient denies any chest pain, shortness of breath, palpitations, fever/chills, nausea/vomiting, fatigue, or diarrhea. REVIEW OF SYSTEMS: PAIN ASSESSMENT: General: No weight loss, malaise or fevers. Neuro: No history of TIA's, stroke, FINISHING AND SHIPPING SUPERVISOR tumor, impaired sensorium, hemiplegia, paraplegia or quadraplegia. No neurological symptoms or problems. Respiratory: No history of current cough or dyspnea, or pneumonia in the past 6 weeks. No history of respiratory/pulmonary symptoms or problems. Cardiovascular: Positive for: HTN, Negative for CAD, Chest Pain, CHF, DVT/PE GI: No history of GI symptoms or problems. No history of esophageal varices, recent ascites, or ETOH greater than 2 drinks per day. : No history of dysuria, frequency or incontinence,, stones or chronic kidney disease MEDICAL LABORATORY TECHNICIAN: Negative for abnormal vaginal bleeding, abnormal vaginal discharge. : Denies, Patient's last menstrual period was 01/16/2025. Endocrine: PCOS Hematology: No history of bleeding or clotting disorder. Pt is not taking anti-coagulation or platelet medications. No history of hematological symptoms or problems. Oncology: No history of CA metastasis, chemo within 30 days, or radiotherapy within 90 days. Has not lost 10% of body wt in 6 months. No history of oncological symptoms or problems. Implanted Devices: No Psych: Anxiety Marijuana use: No Musculoskeletal: Body mass index is 37.09 kg/m . Skin: Negative for lesions, rash and itching. The patient has the following: ACTIVE PROBLEM LIST Obesity, Class II, Bmi 35-39.9 Anxiety Disorder, Unspecified High Blood Pressure Insulin Resistance Pcos (Polycystic Ovarian Syndrome) Covid Immunization Dates This patient has no relevant Health Maintenance data. PAST MEDICAL HISTORY Diagnosis Date Anxiety Hypertension PCOS (polycystic ovarian syndrome) No past surgical history on file. No family history on file. SOCIAL HISTORY[1] Prior to Admission medications as of 06/23/25 1431 Medication Sig Last Dose Taking oxyCODONE IR (ROXICODONE) 5 mg immediate release tablet Take 1 tablet by mouth every 8 hours as needed for pain for up to 3 days. ondansetron orally disintegrating (ZOFRAN ODT) 4 mg disintegrating tablet Take 1 tablet by mouth every 8 hours as needed for nausea/vomiting for up to 60 doses. senna-docusate (SENNA-S) 8.6-50 mg per tablet Take 1 tablet by mouth once daily. omeprazole (PRILOSEC) 40 mg capsule Take 1 capsule by mouth once daily. spironolactone (ALDACTONE) 50 mg tablet Take 50 mg by mouth every morning. Patient not taking: Reported on 06/23/2025 No medication comments found. ALLERGIES No Known Allergies Objective PHYSICAL EXAM: VITALS: BP 109/73 Pulse 78 Temp (Src) 98 (Oral) Resp 14 Ht 5' 4 (1.63m) Wt 216 lb 0.8 oz (98.0kg) SpO2 97% LMP 05/29/2025 BMI 37.07 kg/(m^2). General: Alert and oriented, No acute distress Skin: Normal color, no rash, no lesions. HEENT: EOM, pupils equal, round and reactive. Cardiovascular: Normal S1 & S2, no rubs, murmurs or gallops. No JVD. Pulse regular. Lungs: Normal breath sounds, no wheezes or crackles. Extremities: No deformity, no edema or tenderness, no joint swelling or clubbing. Neurological: Normal cognition and motor skills. Diagnostic tests reviewed for today's visit: Lab Value Units Date High Low HB 13.8 g/dL 01/28/2025 15.5 11.5 HCT 42.8 % 01/28/2025 46.0 36.0 WBC 6.99 k/uL 01/28/2025 11.00 3.70 PLT 287 k/uL 01/28/2025 400 150 NA 141 mmol/L 01/28/2025 144 136 K 4.3 mmol/L 01/28/2025 5.1 3.7 GLUC 100 mg/dL 01/28/2025 99 74 BUN 12 mg/dL 01/28/2025 21 7 CREAT 0.79 mg/dL 01/28/2025 0.96 0.58 PTSEC No results within date range. INR No results within date range. APTT No results within date range. ALT 176 U/L 01/28/2025 38 7 AST 60 U/L 01/28/2025 35 13 TBILI 0.6 mg/dL 01/28/2025 1.3 0.2 TSH 1.180 mIU/L 01/28/2025 4.200 0.270 Hemoglobin A1C (%) Date Value 01/28/2025 5.0 01/21/2024 5.0 Most recent EKG Recent Results (from the past 8760 hours) ECG COMPLETE Collection Time: 01/28/25 11:12 AM Result Value Ventricular Rate 52 Atrial Rate 52 P-R Interval 150 QRS Duration 88 QT Interval 442 QTC Calculation (Bazett) 411 Calculated P Niles 44 Calculated R Niles 72 Calculated T Niles -3 Impression SINUS BRADYCARDIA ABNORMAL QRS-T ANGLE, CONSIDER PRIMARY T WAVE ABNORMALITY ABNORMAL ECG Confirmed by [facility] ([id number]) on 01/28/2025 1:37:02 PM Instructions Given to Patient: Instructions located in the after visit summary. Patient given verbal and written preop instructions and voices comprehension and compliance. SIGNATURE: Lotus Calles APRN.CNP PATIENT NAME: Janay Cruz DATE: 06/26/2025 TIME: 1:57 PM [1] Social History Tobacco Use Smoking status: Former Types: Cigarettes Smokeless tobacco: Former Tobacco comments: Quit 6 years ago Substance Use Topics Alcohol use: Not Currently Drug use: Never documented in this encounter [facility] 06-24-[address] - 06/24/2025 9:36 AM EDT Instructions for Liquid Diet before surgery 1. Start the full liquid diet 2 weeks before surgery - Use only the approved protein shakes: 4.5 bottles/day Slim Fast Advanced Nutrition OR 5.5 packets/day Light Start [place] Breakfast Essentials mixed with 1% or skim milk OR 5 bottles/day Atkins Protein Shake (15 gm protein version) OR 4.5 bottles/day Boost Glucose Control OR 4.5 bottles/day OWYN (20 gm protein and 180 calories version) - Drink at least 64 oz of fluid per day (no calories, no caffeine, no carbonation) - Other clear liquids you can include: clear broth, sugar free jello or popsicles, decaffeinated coffee or tea, no sugar added flavoring packets such as Crystal Lite - Take a Super B Complex vitamin (75-100 mg of Thiamin) daily during the liquid diet 2. Day before surgery: - Finish your last protein shake before 6 pm - Drink at least 64 oz of fluid per day (no calories, no caffeine, no carbonation) - Drink 28-32 fl oz of regular sports drink (Gatorade, Powerade, etc.) 3. Day of surgery: - Drink 12-20 fl oz of regular sports drink - Stop drinking liquids 2 hours before scheduled arrival time 4. Advance diet as tolerated after surgery: - Phase 1- Clear liquids (only in the hospital) - Phase 2- Full liquids. Try to consume at least 60 grams of protein per day in the form of a liquid, high protein shake. Aim to drink 4-8 fl oz of protein shake 3 times per day. Try to drink at least 64 oz per day of water or other clear liquids between shakes. - Phase 3- Soft, high protein foods. Try to consume 3-4 oz of protein 3 times per day from poultry, beef, fish, seafood, eggs, cheese, Surinamese yogurt, cottage cheese, beans, lentils, tofu. Choose meat products that are tender, shredded and/or ground to increase tolerance. Remember to chew food well, eat slow, take small bites Nutrition Monitoring & Evaluation: Follow pre op diet and fluid guidelines Criteria: weight check Need for Follow up: 2 weeks post op documented in this encounter [facility] 06-24-2025 History of Present illness Narrative TOPIC: LIFE STYLE CHANGES: Pre-op weight loss surgery (RYGB): Diet and Exercise PROGRESS: Nutrition Intervention (date of last encounter 02/12/25): 1. Protein goal: 79 grams protein/day 2. Fluid goal: 64 oz per day water (no calories, no caffeine, no carbonation, no alcohol) 3. Exercise goal: 150-250 minutes per week, including 10-20 min of strength/resistance exercise 2-3x/week 4. Practice mindful eating habits- eat protein first, take small portions, eat slowly, chew thoroughly 20-30x before swallowing, practice eating and drinking by 30 min. 5. Start the full liquid diet (2) weeks prior to surgery using 4-5 protein shakes per day, continue a minimum of 64 oz water per day during this time. No solid food. May have sugar free popsicle and sugar free jello. Choose from these options only: 4 bottles of Slim Fast High Protein shakes per day 5 cartons of Atkins 15 g shakes per day 4 bottles of Boost Glucose Control shakes per day 5 packets of [place] Breakfast Essentials Light Start mixed with fat free milk 4 bottles/cartons of Owyn 20 g protein shakes per day 6. During the 2 weeks before and after surgery, include a daily Super B-Complex vitamin with 75-100 mg Thiamine 7. Advance diet per guidebook post surgery (refer to page 49) 8. Begin taking vitamins/minerals after starting soft protein foods ~3 weeks after surgery: Daily multivitamin, iron 45-60 mg (morning), calcium citrate w/ Vit D 600 mg at lunch and 600 mg at dinner, Vit B12 500 mcg sublingual pill or liquid, Vit D3 3000 IU, B complex with 75-100 mg thiamin. Take multivitamin with iron 2 hours apart from calcium citrate, and take each dose of calcium 4 hours apart from each other It is ok to take a combination bariatric vitamin to limit pill volume. Here are a few options to consider: - Bariatric Fusion: 4 Complete Multivitamin chewables per day OR 1 Multivitamin capsule and 5798-2546 mg calcium citrate per day OR 2 Multivitamin soft chews per day + 3 calcium citrate soft chews + 1 iron soft chew per day [email or web address] - Bariatric Choice: 4 All-in-One Bariatric Multivitamin chewables per day OR 1 Once Daily Bariatric Multivitamin capsule and 8375-9245 mg calcium citrate per day [email or web address] - Bariatric Pal: 4 All-in-One Multivitamin chewables per day OR 1 Multivitamin One (chewable or capsule) and 3056-6681 mg calcium citrate per day [email or web address] - Bariatric Advantage: 1 Ultra Solo multivitamin w/ iron (chewable or capsule) OR 2 chewable Advanced Multi EA w/ iron and 1986-7355 mg calcium citrate per day OR 2 Multi Chewy Bites and 4389-4126 mg calcium citrate and 45-60 mg iron per day [email or web address] - Procare Health: 1 Bariatric Multivitamin w/ iron (capsule or chewable) and 8580-0998 mg calcium citrate per day [email or web address] - Celebrate: 2 Multi-Complete (chewable or capsule) OR 1 CelebrateOne Multivitamin capsule and 8286-6272 mg calcium citrate per day OR 2 Multivitamin soft chews + 3 calcium citrate soft chews + 1 iron soft chew per day [email or web address] - BariEBDSoft: 1 Just One Bariatric Multivitamin w/ iron (chewable or capsule) and 0886-0658 mg calcium citrate per day [email or web address] - Barimelts: 2 Multivitamin w/ iron tablets and 9657-4227 mg calcium citrate per day [email or web address] CHANGES IN TREATMENT: Patient met goal(s): Partially Diagnosis: has not changed. Allergies: Patient has no known allergies. Anthropometrics: Height: Last 1 Encounter Ht Readings: Date: Ht: 06/23/2025 162.6 cm (5' 4.02 ) Weight: Last 1 Encounter Wt Readings: Date: Wt: 06/23/2025 102 kg (224 lb 13.9 oz) There is no height or weight on file to calculate BMI. Resting Metabolic Rate: 1716 Malnutrition Screening Significant unintentional weight loss? No Eating less than 75% of usual intake for more than 2 weeks? No Nutritional status: Educational materials provided: none this visit READINESS TO LEARN Cognitive ability: Alert and oriented Motivation to learn: Interested Family support: Unable to assess - Family not present Instruction provided to: Patient Patient learns best by: Multiple Methods Factors affecting learning: None Physical limitations affecting learning: None Likelihood of Adherence: Moderate Patient participated in preop bariatric surgery shared nutrition appointment. Patient participated actively in group. She is scheduled for surgery RYGB 07/06/25 and directed to start the pre-op diet 06/22/25. She will follow the full liquid diet and is using appropriate protein shakes. Patient has all appropriate beverages and Super B complex supplement. Nutrition Diagnosis: Overweight/obesity, related to, decreased energy needs, as evidenced by BMI above normative standard for age and gender. Nutrition Intervention 06/24/2025: Instructions for Liquid Diet before surgery 1. Start the full liquid diet 2 weeks before surgery - Use only the approved protein shakes: 4.5 bottles/day Slim Fast Advanced Nutrition OR 5.5 packets/day Light Start [place] Breakfast Essentials mixed with 1% or skim milk OR 5 bottles/day Atkins Protein Shake (15 gm protein version) OR 4.5 bottles/day Boost Glucose Control OR 4.5 bottles/day OWYN (20 gm protein and 180 calories version) - Drink at least 64 oz of fluid per day (no calories, no caffeine, no carbonation) - Other clear liquids you can include: clear broth, sugar free jello or popsicles, decaffeinated coffee or tea, no sugar added flavoring packets such as Crystal Lite - Take a Super B Complex vitamin (75-100 mg of Thiamin) daily during the liquid diet 2. Day before surgery: - Finish your last protein shake before 6 pm - Drink at least 64 oz of fluid per day (no calories, no caffeine, no carbonation) - Drink 28-32 fl oz of regular sports drink (Gatorade, Powerade, etc.) 3. Day of surgery: - Drink 12-20 fl oz of regular sports drink - Stop drinking liquids 2 hours before scheduled arrival time 4. Advance diet as tolerated after surgery: - Phase 1- Clear liquids (only in the hospital) - Phase 2- Full liquids. Try to consume at least 60 grams of protein per day in the form of a liquid, high protein shake. Aim to drink 4-8 fl oz of protein shake 3 times per day. Try to drink at least 64 oz per day of water or other clear liquids between shakes. - Phase 3- Soft, high protein foods. Try to consume 3-4 oz of protein 3 times per day from poultry, beef, fish, seafood, eggs, cheese, Surinamese yogurt, cottage cheese, beans, lentils, tofu. Choose meat products that are tender, shredded and/or ground to increase tolerance. Remember to chew food well, eat slow, take small bites Nutrition Monitoring & Evaluation: Follow pre op diet and fluid guidelines Criteria: weight check Need for Follow up: 2 weeks post op MNT Billing Type: Ambulatory Group 1 unit Total Time (mins): 28 SIGNATURE: Ramya Kearney RD PATIENT NAME: Janay Cruz DATE: 06/24/2025 TIME: 8:32 AM PAGER: N/A documented in this encounter [facility] 06-24-2025 Note Education (BMINO) JANAY CRUZ ([id number]) 1995 F Date Time Provider Department 06/24/25 9:00 AM RAMYA KEARNEYNO Reason for Visit: Reassessment [674] Patient Education [91] Primary Visit Diagnosis:Obesity, Class II, BMI 35-39.9 [E66.812] Other Visit Diagnosis:Dietary counseling and surveillance [Z71.3] During your visit today, we recorded the following information about you: Allergies As of Date: 06/24/2025 (No Known Allergies) Date Reviewed: 06/24/2025 Reviewed by: Ramya Kearney RD - Fully Assessed Prescriptions as of 06/24/2025 - oxyCODONE IR (ROXICODONE) 5 mg immediate release tablet Take 1 tablet by mouth every 8 hours as needed for pain for up to 3 days. - ondansetron orally disintegrating (ZOFRAN ODT) 4 mg disintegrating tablet Take 1 tablet by mouth every 8 hours as needed for nausea/vomiting for up to 60 doses. - senna-docusate (SENNA-S) 8.6-50 mg per tablet Take 1 tablet by mouth once daily. - omeprazole (PRILOSEC) 40 mg capsule Take 1 capsule by mouth once daily. - spironolactone (ALDACTONE) 50 mg tablet Take 50 mg by mouth every morning. Encounter Status:Closed by RAMYA KEARNEY on 06/24/25 [facility] 06-24-2025 Note HNO ID: [id number] Author: RAMYA KEARNEY RD Service: ? Author Type: Registered Dietitian Type: Progress Notes Filed: 06/24/2025 09:36 Note Text: TOPIC: LIFE STYLE CHANGES: Pre-op weight loss surgery (RYGB): Diet and Exercise PROGRESS: Nutrition Intervention (date of last encounter 02/12/25): 1. Protein goal: 79 grams protein/day 2. Fluid goal: 64 oz per day water (no calories, no caffeine, no carbonation, no alcohol) 3. Exercise goal: 150-250 minutes per week, including 10-20 min of strength/resistance exercise 2-3x/week 4. Practice mindful eating habits- eat protein first, take small portions, eat slowly, chew thoroughly 20-30x before swallowing, practice eating and drinking by 30 min. 5. Start the full liquid diet (2) weeks prior to surgery using 4-5 protein shakes per day, continue a minimum of 64 oz water per day during this time. No solid food. May have sugar free popsicle and sugar free jello. Choose from these options only: 4 ? bottles of Slim Fast High Protein shakes per day 5 cartons of Atkins 15 g shakes per day 4 ? bottles of Boost Glucose Control shakes per day 5 ? packets of [place] Breakfast Essentials Light Start mixed with fat free milk 4 ? bottles/cartons of Owyn 20 g protein shakes per day 6. During the 2 weeks before and after surgery, include a daily Super B-Complex vitamin with 75-100 mg Thiamine 7. Advance diet per guidebook post surgery (refer to page 49) 8. Begin taking vitamins/minerals after starting soft protein foods ~3 weeks after surgery: Daily multivitamin, iron 45-60 mg (morning), calcium citrate w/ Vit D 600 mg at lunch and 600 mg at dinner, Vit B12 500 mcg sublingual pill or liquid, Vit D3 3000 IU, B complex with 75-100 mg thiamin. Take multivitamin with iron 2 hours apart from calcium citrate, and take each dose of calcium 4 hours apart from each other It is ok to take a combination bariatric vitamin to limit pill volume. Here are a few options to consider: - Bariatric Fusion: 4 Complete Multivitamin chewables per day OR 1 Multivitamin capsule and 7903-0433 mg calcium citrate per day OR 2 Multivitamin soft chews per day + 3 calcium citrate soft chews + 1 iron soft chew per day [email or web address] - Bariatric Choice: 4 All-in-One Bariatric Multivitamin chewables per day OR 1 Once Daily Bariatric Multivitamin capsule and 1711-6624 mg calcium citrate per day [email or web address] - Bariatric Pal: 4 All-in-One Multivitamin chewables per day OR 1 Multivitamin One (chewable or capsule) and 0676-0057 mg calcium citrate per day [email or web address] - Bariatric Advantage: 1 Ultra Solo multivitamin w/ iron (chewable or capsule) OR 2 chewable Advanced Multi EA w/ iron and 7767-2331 mg calcium citrate per day OR 2 Multi Chewy Bites and 4770-0455 mg calcium citrate and 45-60 mg iron per day [email or web address] - Robotgalaxy Health: 1 Bariatric Multivitamin w/ iron (capsule or chewable) and 2192-9755 mg calcium citrate per day [email or web address] - Celebrate: 2 Multi-Complete (chewable or capsule) OR 1 CelebrateOne Multivitamin capsule and 7683-4876 mg calcium citrate per day OR 2 Multivitamin soft chews + 3 calcium citrate soft chews + 1 iron soft chew per day [email or web address] - Barilife: 1 Just One Bariatric Multivitamin w/ iron (chewable or capsule) and 8848-3315 mg calcium citrate per day www.[email or web address] - Barimelts: 2 Multivitamin w/ iron tablets and 5664-9713 mg calcium citrate per day [email or web address] CHANGES IN TREATMENT: Patient met goal(s): Partially Diagnosis: has not changed. Allergies: Patient has no known allergies. Anthropometrics: Height: Last 1 Encounter Ht Readings: Date: Ht: 06/23/2025 162.6 cm (5' 4.02 ) Weight: Last 1 Encounter Wt Readings: Date: Wt: 06/23/2025 102 kg (224 lb 13.9 oz) There is no height or weight on file to calculate BMI. Resting Metabolic Rate: 1716 Malnutrition Screening Significant unintentional weight loss? No Eating less than 75% of usual intake for more than 2 weeks? No Nutritional status: Educational materials provided: none this visit READINESS TO LEARN Cognitive ability: Alert and oriented Motivation to learn: Interested Family support: Unable to assess - Family not present Instruction provided to: Patient Patient learns best by: Multiple Methods Factors affecting learning: None Physical limitations affecting learning: None Likelihood of Adherence: Moderate Patient participated in preop bariatric surgery shared nutrition appointment. Patient participated actively in group. She is scheduled for surgery RYGB 07/06/25 and directed to start the pre-op diet 06/22/25. She will follow the full liquid diet and is using appropriate protein shakes. Patient has all appropriate beverages and Super B complex supplement. Nutrition Diagnosis: Overweight/obesity, related to, decreased (more content not included)... [facility] 06-23-2025 Note HNO ID: [id number] Author: GALILEO HARTLEY MA Service: ? Author Type: Wet And Dry Sugar Bin Operator Type: Progress Notes Filed: 06/23/2025 15:47 Note Text: What is the reason for your visit today? Pre-Op LRYGB, DOS 07/06/25 Who is your referring physician? Program Are you having poor oral intake? NO Have you had unintentional weight loss of 15 lbs/7 Kg in the last 3-6 months? NO Bowels: regular Wound: Temperature: No Drains: No [facility] 06-23-2025 History of Present illness Narrative What is the reason for your visit today? Pre-Op LRYGB, DOS 07/06/25 Who is your referring physician? Program Are you having poor oral intake? NO Have you had unintentional weight loss of 15 lbs/7 Kg in the last 3-6 months? NO Bowels: regular Wound: Temperature: No Drains: No SURGERY PREOPERATIVE VISIT NOTE Name: Janay Cruz Medical Record: [id number] Encounter No.: [id number] Janay Cruz is a 30 year old female seen in surgery clinic today for their final preoperative assessment. INTERVAL NOTE: Here to discuss regarding surgery PLANNED PROCEDURE: Sleeve gastrectomy. Patient does have gallstones but has no symptoms from it. We will defer a cholecystectomy. PAST MEDICAL HISTORY: PAST MEDICAL HISTORY Diagnosis Date Anxiety Hypertension PCOS (polycystic ovarian syndrome) PAST SURGICAL HISTORY: No past surgical history on file. SOCIAL HISTORY: SOCIAL HISTORY[1] ALLERGIES: ALLERGIES No Known Allergies MEDICATIONS: Prior to Admission Medications: spironolactone (ALDACTONE) 50 mg tablet Take 50 mg by mouth every morning. (Patient not taking: Reported on 01/21/2025) No current facility-administered medications for this visit. VISIT NOTE This patient was seen in clinic today to obtain informed consent, to discuss the details of their upcoming operation including the appropriate expectations for perioperative and postoperative care. In addition, preoperative and postoperative relevant prescriptions were provided and explained during this clinic visit. Based on co morbidities, age and gender, DVT risk is 0.2%. ERAS protocol discussed . Narcotics sparing postop recovery discussed . The consent discussion included the risks, benefits and anticipated outcomes of the procedure, the risks and benefits of the alternatives to the procedure, and the roles and tasks of the personnel to be involved. Patient is scheduled for laparoscopic possible open sleeve gastrectomy, possible repair of hiatal hernia, possible liver biopsy, and intraoperative EGD. I have discussed the risks of surgery including infection, bleeding including injury to the spleen, the mesenteric blood vessels, conversion in the open, postoperative leak requiring stenting, reoperation, resection or repair, stricture requiring dilation or revision, marginal ulcer requiring treatment including reoperation, and incisional hernias. I have also discussed the incidence of reflux problems after sleeve, the possibility of requiring medications for reflux as well or in the worst case scenario requiring surgery for reflux. I have also discussed regarding unsatisfactory weight loss as well as terminal carman weight regain. I have also discussed medical complications including urinary tract infections, myocardial infarction, DVT, PE, prolonged ICU stay, and possible postoperative mechanical ventilation and the risk of mortality. I have reviewed with this patient needed nutritional changes, post-operative recovery, and the potential for excess skin following surgery and subsequent weight loss. Risks of nicotine before and after bariatric surgery were also discussed with patient. I have also discussed in detail regarding postoperative hospital stay as well as recovery. Janet Malcolm MD [1] Social History Tobacco Use Smoking status: Former Types: Cigarettes Smokeless tobacco: Former Tobacco comments: Quit 6 years ago Substance Use Topics Alcohol use: Not Currently Drug use: Never documented in this encounter [facility] 06-23-2025 Note HNO ID: [id number] Author: JANET MALCOLM MD Service: ? Author Type: Physician Type: Progress Notes Filed: 06/23/2025 15:47 Note Text: SURGERY PREOPERATIVE VISIT NOTE Name: Janay Cruz Medical Record: [id number] Encounter No.: [id number] Janay Cruz is a 30 year old female seen in surgery clinic today for their final preoperative assessment. INTERVAL NOTE: Here to discuss regarding surgery PLANNED PROCEDURE: Sleeve gastrectomy. Patient does have gallstones but has no symptoms from it. We will defer a cholecystectomy. PAST MEDICAL HISTORY: PAST MEDICAL HISTORY Diagnosis Date Anxiety Hypertension PCOS (polycystic ovarian syndrome) PAST SURGICAL HISTORY: No past surgical history on file. SOCIAL HISTORY: SOCIAL HISTORY[1] ALLERGIES: ALLERGIES No Known Allergies MEDICATIONS: Prior to Admission Medications: spironolactone (ALDACTONE) 50 mg tablet Take 50 mg by mouth every morning. (Patient not taking: Reported on 01/21/2025) No current facility-administered medications for this visit. VISIT NOTE This patient was seen in clinic today to obtain informed consent, to discuss the details of their upcoming operation including the appropriate expectations for perioperative and postoperative care. In addition, preoperative and postoperative relevant prescriptions were provided and explained during this clinic visit. Based on co morbidities, age and gender, DVT risk is 0.2%. ERAS protocol discussed . Narcotics sparing postop recovery discussed . The consent discussion included the risks, benefits and anticipated outcomes of the procedure, the risks and benefits of the alternatives to the procedure, and the roles and tasks of the personnel to be involved. Patient is scheduled for laparoscopic possible open sleeve gastrectomy, possible repair of hiatal hernia, possible liver biopsy, and intraoperative EGD. I have discussed the risks of surgery including infection, bleeding including injury to the spleen, the mesenteric blood vessels, conversion in the open, postoperative leak requiring stenting, reoperation, resection or repair, stricture requiring dilation or revision, marginal ulcer requiring treatment including reoperation, and incisional hernias. I have also discussed the incidence of reflux problems after sleeve, the possibility of requiring medications for reflux as well or in the worst case scenario requiring surgery for reflux. I have also discussed regarding unsatisfactory weight loss as well as senior living weight regain. I have also discussed medical complications including urinary tract infections, myocardial infarction, DVT, PE, prolonged ICU stay, and possible postoperative mechanical ventilation and the risk of mortality. I have reviewed with this patient needed nutritional changes, post-operative recovery, and the potential for excess skin following surgery andsubsequent weight loss. Risks of nicotine before and after bariatric surgery were also discussed with patient. I have also discussed in detail regarding postoperative hospital stay as well as recovery. Janet Malcolm MD [1] Social History Tobacco Use Smoking status: Former Types: Cigarettes Smokeless tobacco: Former Tobacco comments: Quit 6 years ago Substance Use Topics Alcohol use: Not Currently Drug use: Never [facility] 06-11-2025 Telephone encounter Note Returned call and informed patient that I would send her navigator an email to check on the status of the insurance approval. Patient understanding and thankful for call. [facility] 06-11-2025 Miscellaneous Notes Returned call and informed patient that I would send her navigator an email to check on the status of the insurance approval. Patient understanding and thankful for call. Patient contacted the office of Dr Malcolm to express that she has not received a surgical date for her bariatric surgery and had received insurance approval letter a few weeks ago and advised my navigator . Patient would appreciate assistance from the office and or update if further steps are required as soon as possible. CB # [phone]. Thank you. Eve Duval documented in this encounter [facility] 06-11-2025 Telephone encounter Note Patient contacted the office of Dr Malcolm to express that she has not received a surgical date for her bariatric surgery and had received insurance approval letter a few weeks ago and advised my navigator . Patient would appreciate assistance from the office and or update if further steps are required as soon as possible. CB # [phone]. Thank you. Eve Duval [facility] 06-02-2025 History of Present illness Narrative Reason for Appointment: Patient ID: Janay Cruz is a 30 y.o. female who presents for No chief complaint on file. Patient presents today for Acute Visit. and STD Check. 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 Resolved Ambulatory Problems Diagnosis Date Noted PCOS (polycystic ovarian syndrome) 08/02/2018 Past Medical History: Diagnosis Date Anxiety Elevated DHEA Gestational diabetes ([facility]) Heart palpitations Hirsutism Vitamin D deficiency HISTORY PAST MEDICAL HISTORY SOCIAL HISTORY Past Medical History: Diagnosis Date Anxiety zoloft no down to 25 mg weening off Elevated DHEA Gestational diabetes ([facility]) Heart palpitations Hirsutism PCOS (polycystic ovarian syndrome) Vitamin D deficiency Social History Tobacco Use Smoking status: Former Current packs/day: 0.00 Types: Cigarettes Quit date: 10/15/2019 Years since quittin.6 Smokeless tobacco: Never Vaping Use Vaping status: Never Used Substance Use Topics Alcohol use: Not Currently Comment: Caffeine intake: 1- c green tea Drug use: Never FAMILY HISTORY Family History Problem Relation Name Age of Onset No Known Problems Mother No Known Problems Father No Known Problems Sister Healthy No Known Problems Sister Healthy No Known Problems Sister Healthy No Known Problems Brother Celiac disease Maternal Grandmother Diabetes Paternal Grandmother Hypertension Paternal Grandmother Arthritis Paternal Grandmother SURGICAL HISTORY Past Surgical History: Procedure Laterality Date CONTRACEPTIVE CAPSULE REMOVAL 04/04/2023 Nexplanon removal INSERTION OF CONTRACEPTIVE CAPSULE 06/28/2022 Nexplanon insertion INTRAUTERINE DEVICE INSERTION 04/11/2023 Paragard TONSILECTOMY, ADENOIDECTOMY, BILATERAL MYRINGOTOMY AND TUBES 2017 TONSILLECTOMY T & A, age 24 TUBAL LIGATION Bilateral 09/04/2023 VAGINAL DELIVERY 2010 x4: 2010, 2015, 2020, 05/05/2022 REVIEW OF SYSTEMS Review of Systems: Review of Systems Constitutional: Negative. HENT: Negative. Eyes: Negative. Respiratory: Negative. Cardiovascular: Negative. Gastrointestinal: Negative. Genitourinary: Negative. Musculoskeletal: Negative. Skin: Negative. Neurological: Negative. All other systems reviewed and are negative. Hematological: Negative. Endocrine: Negative. Allergic/Immunologic: Negative. OBJECTIVE Objective: Physical Exam Constitutional: Appearance: Normal appearance. She is well-developed. Genitourinary: Vulva normal. Cardiovascular: Rate and Rhythm: Normal rate and regular rhythm. Pulmonary: Effort: Pulmonary effort is normal. Breath sounds: Normal breath sounds. Abdominal: General: Bowel sounds are normal. There is no distension. Palpations: Abdomen is soft. Tenderness: There is no abdominal tenderness. There is no guarding or rebound. Musculoskeletal: General: No swelling. Normal range of motion. Right lower leg: No edema. Left lower leg: No edema. Neurological: Mental Status: She is alert and oriented to person, place, and time. Skin: General: Skin is warm and dry. Psychiatric: Mood and Affect: Mood normal. Behavior: Behavior normal. Vitals and nursing note reviewed. Exam conducted with a structural iron worker present. Vitals: Estimated body mass index is 39.64 kg/m as calculated from the following: Height as of 12/22/24: 5' 3 . Weight as of this encounter: 223 lb 12.8 oz. BP: 120/80 No LMP recorded (within weeks). ASSESSMENT & PLAN ICD-10-CM 1. Skin tag L91.8 2. Exposure to STD Z20.2 SURESWAB(R) ADVANCED VAGINITIS PLUS, TMA 3. Vaginal discharge N89.8 CHLAMYDIA TRACHOMATIS (GENITO/STI) Neisseria gonorrhea DNA probe, direct metroNIDAZOLE (Flagyl) 500 MG tablet 4. 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 Pt has complaints of what she thought was a skin tag is a hymenal ring, pt wants removed. Pt to be scheduled for removal of hymenal ring remnants. Pt to return for preop. Documented by Lauren Kasper LPN on behalf of: Yadiel Shafer DO documented in this encounter [facility] 05-08-2025 History of Presen t illness Narrative Encounter Date ext ext [facility] Work Phone: [phone]) 732-332907-10-2025 NoteHNO ID: [id number] Author: ?, ?, ? Service: ? Author Type: ? Type: Progress Notes Filed: 04/23/2025 11:56 Note Text: 05/24/2025 is a pseudo date for insurance approval purposes only. This is not an actual procedure date. [facility] History of Present illness Narrative* Kenneth Hernandez - 04/23/2025 11:54 AM EDT 05/24/2025 is a pseudo date for insurance approval purposes only. This is not an actual procedure date. Kenneth Hernandez [facility] Telephone encounter Note * Telephone Encounter - Jenelle Malhotra MA - 03/10/2025 9:03 AM EDT March 10, 2025 9:03 AM Last encounter Visit on 11/29/2023 (with Nataliia Ramos) Janay Cruz called regarding surgical clearance. Patient states is having bariatric surgery but has not got the clearance from Dr. Jose. Patient confused what is holding the approval up. She can be reached at [phone]. Jenelle Malhotra Veneer Joiner II Endocrinology & Metabolism [facility] F20 & X20 [facility]05-27-2025 Miscellaneous Notes* Telephone Encounter - Jenelle Malhotra MA - 03/10/2025 9:03 AM EDT March 10, 2025 9:03 AM Last encounter Visit on 11/29/2023 (with Nataliiaobed Ramos) Janay Cruz called regarding surgical clearance. Patient states is having bariatric surgery but has not got the clearance from Dr. Jose. Patient confused what is holding the approval up. She can be reached at [phone]. Jenelle Malhotra Veneer Joiner II Endocrinology & Metabolism [facility] F20 & X20 [facility] Telephone encounter Note * Telephone Encounter - Belinda Astudillo - 02/24/2025 3:14 PM EDT Sent patient email regarding clearance patient has been cleared by nutrition and psych, I reach outto Dr. Jose on February 19, for clearance and again today February 24, 2025. [facility]-13-2025 Miscellaneous Notes* Telephone Encounter - Belinda Astudillo - 02/24/2025 3:14 PM EDT Sent patient email regarding clearance patient has been cleared by nutrition and psych, I reach outto Dr. Jose on February 19, for clearance and again today February 24, 2025. [facility] Instructions* Patient Instructions* Laure Dhillon RD - 02/12/2025 10:25 AM EDT Nutrition Intervention: Modify type and amount of foods consumed for meals and snacks Please call [phone], option 5. Leave a message for the navigation team when you are finishedwith all clearances (nutrition, psychology, medical, surgeon) 1. Protein goal: 79 grams protein/day 2. Fluid goal: 64 oz per day water (no calories, no caffeine, no carbonation, no alcohol) 3. Exercise goal: 150-250 minutes per week, including 10-20 min of strength/resistance exercise 2-3x/week 4. Practice mindful eating habits- eat protein first, take small portions, eat slowly, chew thoroughly 20-30x before swallowing, practice eating and drinking by 30 min. 5. Start the full liquid diet (2) weeks prior to surgery using 4-5 protein shakes per day, continuea minimum of 64 oz water per day during this time. No solid food. May have sugar free popsicle and sugar free jello. Choose from these options only: 4 bottles of Slim Fast High Protein shakes per day 5 cartons of Atkins 15 g shakes per day 4 bottles of Boost Glucose Control shakes per day 5 packets of [place] Breakfast Essentials Light Start mixed with fat free milk 4 bottles/cartons of Owyn 20 g protein shakes per day 6. During the 2 weeks before and after surgery, include a daily Super B-Complex vitamin with 75-100mg Thiamine 7. Advance diet per guidebook post surgery (refer to page 49) 8. Begin taking vitamins/minerals after starting soft protein foods ~3 weeks after surgery: Daily multivitamin, iron 45-60 mg (morning), calcium citrate w/ Vit D 600 mg at lunch and 600 mg at dinner,Vit B12 500 mcg sublingual pill or liquid, Vit D3 3000 IU, B complex with 75-100 mg thiamin. Takemultivitamin with iron 2 hours apart from calcium citrate, and take each dose of calcium 4 hours apart from each other It is ok to take a combination bariatric vitamin to limit pill volume. Here are a few options to consider: - Bariatric Fusion: 4 Complete Multivitamin chewables per day OR 1 Multivitamin capsule and 9939-8590 mg calcium citrate per day OR 2 Multivitamin soft chews per day + 3 calcium citrate soft chews + 1 iron soft chew per day [email or web address] - Bariatric Choice: 4 All-in-One Bariatric Multivitamin chewables per day OR 1 Once Daily BariatricMultivitamin capsule and 8931-5174 mg calcium citrate per day [email or web address] - Bariatric Pal: 4 All-in-One Multivitamin chewables per day OR 1 Multivitamin One (chewable or capsule) and 7952-8007 mg calcium citrate per day www.[email or web address] - Bariatric Advantage: 1 Ultra Solo multivitamin w/ iron (chewable or capsule) OR 2 chewable Advanced Multi EA w/ iron and 7183-0990 mg calcium citrate per day OR 2 Multi Chewy Bites and 9149-4395 mgcalcium citrate and 45-60 mg iron per day [email or web address] - [employer] Health: 1 Bariatric Multivitamin w/ iron (capsule or chewable) and 9145-2894 mg calcium citrate per day www.WebPesados - Celebrate: 2 Multi-Complete (chewable or capsule) OR 1 CelebrateOne Multivitamin capsule and 9814-7755 mg calcium citrate per day OR 2 Multivitamin soft chews + 3 calcium citrate soft chews + 1 iron soft chew per day [email or web address] - Barilife: 1 Just One Bariatric Multivitamin w/ iron (chewable or capsule) and 3517-3969 mg calcium citrate per day [email or web address] - Barimelts: 2 Multivitamin w/ iron tablets and 7785-2550 mg calcium citrate per day [email or web address] Pre-op weight goal: 212 lbs Nutrition Monitoring & Evaluation: 1-2 lb weight loss per week prior to surgery Criteria: weight check and patient update Need for Follow up: 2 weeks pre op [facility] History of Present illness Narrative* Laure Dhillon RD - 02/12/2025 9:45 AM EDT AMBULATORY PATIENT EDUCATION NOTE- Shared Virtual Nutrition Group I have communicated my name and active licensure. The patient's identity and physical location wereverified at the time of this visit. Either the patient or their legal digital sales representative has been informed of the risks and benefits of -- and alternatives to -- treatment through a remote evaluation andconsents to proceed with the evaluation remotely. Patient reports weight (as measured by home scale) of 216 pounds ([facility]- [facility]. Malcolm) PROGRESS: Nutrition Intervention (date of last encounter 01/23/25): Modify type and amount of foods consumed for meals and snacks 1. Read Nutritional Guidelines Section of Your Guide to Surgery by next session [email or web address] n 2. Do not skip meals. 3. Use protein shake 1x per day to replace any skipped meals or for breakfast. Aim for shakes ~150-200 calories, ~15-20 grams of protein, <5 grams of total sugar. Choose from these options that are approved for the pre-op liquid diet: Slim Fast High Protein (20 g protein), Atkins (15 g protein),Boost Glucose Control (16 g protein), Owyn (20 g protein), [place] Breakfast Essentials Light Start mixed with fat free or 1% milk 4. Use the Healthy Plate Method of portion control for meals 1/4 plate (3-4 oz) lean meat, fish, chicken, pork tenderloin, turkey, seafood, eggs/cheese 1/2 plate non-starchy vegetables (salad, greens, cabbage, spinach, brussels sprouts, broccoli, carrots, celery, peppers, green beans, cauliflower) 1/4 plate (up to 1 cup) whole grain, starch/starchy vegetables (corn, peas, smart beans, winter squash, sweet potato, rice, pasta, potato) 5. Physical activity: Aim for 150 minutes of physical activity per week. Include 10-20 minutes of strength/resistance exercise 2-3x/week. 6. Drink 64 ounces per day water. Fluids should follow these guidelines: No carbonation, no caffeine, no calories, no alcohol. 7. Start to explore post surgery bariatric vitamins/minerals: Daily multivitamin, iron 45-60 mg, calcium citrate w/ Vit D 0378-8268 mg, Vit B12 500 mcg sublingual pill or liquid, Vit D3 3000 international unit(s), B complex with 75-100 mg thiamin It is ok to take a combination bariatric vitamin to limit pill volume. Here are a few options to consider: - Bariatric Fusion: 4 Complete Multivitamin chewables per day OR 1 Multivitamin capsule and 7701-0704 mg calcium citrate per day OR 2 Multivitamin soft chews per day + 3 calcium citrate soft chews + 1 iron soft chew per day www.[email or web address].com - Bariatric Choice: 4 All-in-One Bariatric Multivitamin chewables per day OR 1 Once Daily BariatricMultivitamin capsule and 3301-2752 mg calcium citrate per day www.[email or web address].com - Bariatric Pal: 4 All-in-One Multivitamin chewables per day OR 1 Multivitamin One (chewable or capsule) and 4691-6171 mg calcium citrate per day [email or web address] - Bariatric Advantage: 1 Ultra Solo multivitamin w/ iron (chewable or capsule) OR 2 chewable Advanced Multi EA w/ iron and 0925-4717 mg calcium citrate per day OR 2 Multi Chewy Bites and 0924-0624 mgcalcium citrate and 45-60 mg iron per day www.[email or web address] - [employer] Health: 1 Bariatric Multivitamin w/ iron (capsule or chewable) and 2040-0537 mg calcium citrate per day www.WebPesados - Celebrate: 2 Multi-Complete (chewable or capsule) OR 1 CelebrateOne Multivitamin capsule and 6196-3796 mg calcium citrate per day OR 2 Multivitamin soft chews + 3 calcium citrate soft chews + 1 iron soft chew per day [email or web address]://[email or web address] - Barilife: 1 Just One Bariatric Multivitamin w/ iron (chewable or capsule) and 4025-2416 mg calcium citrate per day www.[email or web address] - Barimelts: 2 Multivitamin w/ iron tablets and 8455-7436 mg calcium citrate per day www.Tokyo Otaku Mode Pre-op goal weight: 212 pounds Protein needs: 79 gm per day CHANGES IN TREATMENT: Patient met goal(s): Partially Diagnosis: has not changed. Allergies: Patient has no known allergies. Medications: Current Outpatient Medications Medication Sig Dispense Refill spironolactone (ALDACTONE) 50 mg tablet Take 50 mg by mouth every morning. (Patient not taking: Reported on 01/21/2025) No current facility-administered medications for this visit. (currently taking) ; Anthropometrics: Height: Last 1 Encounter Ht Readings: Date: Ht: 01/23/2025 162.6 cm (5' 4 ) Current weight: Last 1 Encounter Wt Readings: Date: Wt: 01/23/2025 99.3 kg (219 lb) Body mass index is 37.08 kg/m . Resting Metabolic Rate: 1695 Malnutrition Screening Significant unintentional weight loss? No Eating less than 75% of usual intake for more than 2 weeks? No Nutritional status: Educational materials provided: none this visit READINESS TO LEARN Cognitive ability: Alert and oriented Motivation to learn: Interested Family support: Unable to assess - Family not present Instruction provided to: Patient Patient learns best by: Multiple Methods Factors affecting learning: None Physical limitations affecting learning: None Likelihood of Adherence: High Patient participated in preop bariatric surgery shared nutrition appointment. Patient participated actively in group. Since last visit patient -3 lbs (219 lbs). Diet recall reveals consistent eating pattern with no missed meals. She is using Atkins protein shake to replace breakfast. Lunch and dinner are sensible with attention to smaller portions, increasing protein and vegetables and reducing carbs. Fluid intake is adequate with sufficient water and she has eliminated energy drinks. Physical activity increasing with more walking, although not meeting weekly recommendations and lacks strength. Vitamin reviewed but not selected. Patient meets the National Institutes of Health guidelines for weight loss surgery and has [place] Medicaid Insurance therefore is required to complete 0 months of Nutrition Intervention for clearance for surgery. Today is visit 3 of 0. (Jacquie 12/13/23, 01/23/25, 02/12/25) After session today, patient able to verbalize protein/fluid/exercise goals, recommendations for vitamin/minerals, use of protein shakes for meal replacement and for 2 week full liquid diet phase. Also able to demonstrate post op diet advancement/portion control using food models. Anticipate post op compliance. The patient meets NIH guidelines for weight loss surgery and has been thoroughly evaluated and educated on good dietary practices. Patient is capable of following these guidelines pre-and post-surgically. From nutrition standpoint, the patient is cleared for weight loss surgery. If the patient desires, she may continue to follow-up with the dietitian on a monthly basis until all surgical requirements are met. Nutrition Diagnosis: Overweight/obesity, related to, food/nutrition - related knowledge deficit, asevidenced by BMI above normative standard for age and gender. Nutrition Intervention: Modify type and amount of foods consumed for meals and snacks Please call [phone], option 5. Leave a message for the navigation team when you are finishedwith all clearances (nutrition, psychology, medical, surgeon) 1. Protein goal: 79 grams protein/day 2. Fluid goal: 64 oz per day water (no calories, no caffeine, no carbonation, no alcohol) 3. Exercise goal: 150-250 minutes per week, including 10-20 min of strength/resistance exercise 2-3x/week 4. Practice mindful eating habits- eat protein first, take small portions, eat slowly, chew thoroughly 20-30x before swallowing, practice eating and drinking by 30 min. 5. Start the full liquid diet (2) weeks prior to surgery using 4-5 protein shakes per day, continuea minimum of 64 oz water per day during this time. No solid food. May have sugar free popsicle and sugar free jello. Choose from these options only: 4 bottles of Slim Fast High Protein shakes per day 5 cartons of Atkins 15 g shakes per day 4 bottles of Boost Glucose Control shakes per day 5 packets of [place] Breakfast Essentials Light Start mixed with fat free milk 4 bottles/cartons of Owyn 20 g protein shakes per day 6. During the 2 weeks before and after surgery, include a daily Super B-Complex vitamin with 75-100mg Thiamine 7. Advance diet per guidebook post surgery (refer to page 49) 8. Begin taking vitamins/minerals after starting soft protein foods ~3 weeks after surgery: Daily multivitamin, iron 45-60 mg (morning), calcium citrate w/ Vit D 600 mg at lunch and 600 mg at dinner,Vit B12 500 mcg sublingual pill or liquid, Vit D3 3000 IU, B complex with 75-100 mg thiamin. Takemultivitamin with iron 2 hours apart from calcium citrate, and take each dose of calcium 4 hours apart from each other It is ok to take a combination bariatric vitamin to limit pill volume. Here are a few options to consider: - Bariatric Fusion: 4 Complete Multivitamin chewables per day OR 1 Multivitamin capsule and 3482-6096 mg calcium citrate per day OR 2 Multivitamin soft chews per day + 3 calcium citrate soft chews + 1 iron soft chew per day www.bariatricfusion.TalentSpring - Bariatric Choice: 4 All-in-One Bariatric Multivitamin chewables per day OR 1 Once Daily BariatricMultivitamin capsule and 7599-2281 mg calcium citrate per day www.bariatricchoice.TalentSpring - Bariatric Pal: 4 All-in-One Multivitamin chewables per day OR 1 Multivitamin One (chewable or capsule) and 8384-3962 mg calcium citrate per day www.Xoom Corporationbariatricpal.TalentSpring/collections/bariatric-vitamins - Bariatric Advantage: 1 Ultra Solo multivitamin w/ iron (chewable or capsule) OR 2 chewable Advanced Multi EA w/ iron and 2684-5229 mg calcium citrate per day OR 2 Multi Chewy Bites and 6278-3517 mgcalcium citrate and 45-60 mg iron per day www.bariatricadvantage.TalentSpring - [employer] Health: 1 Bariatric Multivitamin w/ iron (capsule or chewable) and 5329-9791 mg calcium citrate per day www.WebPesados - Celebrate: 2 Multi-Complete (chewable or capsule) OR 1 CelebrateOne Multivitamin capsule and 8705-1403 mg calcium citrate per day OR 2 Multivitamin soft chews + 3 calcium citrate soft chews + 1 iron soft chew per day https://Kidzloop.TalentSpring - Barilife: 1 Just One Bariatric Multivitamin w/ iron (chewable or capsule) and 7961-6243 mg calcium citrate per day www.Stayfilm.TalentSpring - Barimelts: 2 Multivitamin w/ iron tablets and 3797-6806 mg calcium citrate per day www.Oktogo.TalentSpring Pre-op weight goal: 212 lbs Nutrition Monitoring & Evaluation: 1-2 lb weight loss per week prior to surgery Criteria: weight check and patient update Need for Follow up: 2 weeks pre op Appointment Start Time: 9:45am Appointment End Time: 10:13am Time Spent on Consult: 28 minutes MNT Billing Type: Ambulatory Group 1 unit Total Time (mins): 28 Signed by: Laure Dhillon RD, LD documented in this encounterAccess [facility] [place] NoteHNO ID: [id number] Author: LAURE DHILLON RD Service: ? Author Type: Registered Dietitian Type: Progress Notes Filed: 02/12/2025 10:25 Note Text: AMBULATORY PATIENT EDUCATION NOTE- Shared Virtual Nutrition Group I have communicated my name and active licensure. The patient's identity and physical location were verified at the time of this visit. Either the patient or their legal digital sales representative has been informed of the risks and benefits of -- and alternatives to -- treatment through a remote evaluation and consents to proceed with the evaluation remotely. Patient reports weight (as measured by home scale) of 216 pounds ([facility]- [facility]. Malcolm) PROGRESS: Nutrition Intervention (date of last encounter 01/23/25): Modify type and amount of foods consumed for meals and snacks 1. Read Nutritional Guidelines Section of Your Guide to Surgery by next sessionhttps://my.[facility].org/-/scassets/files/org/bariatric/guides/bmig uidebook-[email or web address].ashx?la=en 2. Do not skip meals. 3. Use protein shake 1x per day to replace any skipped meals or for breakfast. Aim for shakes ~150-200 calories, ~15-20 grams of protein, <5 grams of total sugar. Choose from these options that are approved for the pre-op liquid diet: Slim Fast High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 strength/resistance exercise 2-3x/week. 6. Drink 64 ounces per day water. Fluids should follow these guidelines: No carbonation, no caffeine, no calories, no alcohol. 7. Start to explore post surgery bariatric vitamins/minerals: Daily multivitamin, iron 45-60 mg, calcium citrate w/ Vit D 3258-2609 mg, Vit B12 500 mcg sublingual pill or liquid, Vit D3 3000 international unit(s), B complex with 75-100 mg thiamin It is ok to take a combination bariatric vitamin to limit pill volume. Here are a few options to consider: - Bariatric Fusion: 4 Complete Multivitamin chewables per day OR 1 Multivitamin capsule and 0189-8204 mg calcium citrate per day OR 2 Multivitamin soft chews per day + 3 calcium citrate soft chews + 1 iron soft chew per day www.bariatricfusion.com - Bariatric Choice: 4 All-in-One Bariatric Multivitamin chewables per day OR 1 Once Daily BariatricMultivitamin capsule and 2085-5951 mg calcium citrate per day www.bariatricchoice.com - Bariatric Pal: 4 All-in-One Multivitamin chewables per day OR 1 Multivitamin One (chewable or capsule) and 2295-2056 mg calcium citrate per day www.Outlisten.[email or web address]/collections/[email or web address]-vitamins - Bariatric Advantage: 1 Ultra Solo multivitamin w/ iron (chewable or capsule) OR 2 chewable Advanced Multi EA w/ iron and 0341-0241 mg calcium citrate per day OR 2 Multi Chewy Bites and 2570-9441 mgcalcium citrate and 45-60 mg iron per day www.bariatricadvantage.TalentSpring - Procare Health: 1 Bariatric Multivitamin w/ iron (capsule or chewable) and 1591-0563 mg calcium citrate per day www.WebPesados - Celebrate: 2 Multi-Complete (chewable or capsule) OR 1 CelebrateOne Multivitamin capsule and 6375-5092 mg calcium citrate per day OR 2 Multivitamin soft chews + 3 calcium citrate soft chews + 1 iron soft chew per day https://[email or web address].[email or web address] - Barilife: 1 Just One Bariatric Multivitamin w/ iron (chewable or capsule) and 4047-9247 mg calcium citrate per day www.Mango DSP - Barimelts: 2 Multivitamin w/ iron tablets and 0530-0885 mg calcium citrate per day www.Overland StoragetsUbitexx Pre-op goal weight: 199 pounds Protein needs: 77 gm per day Actions to implement interventions: see assessment Diet History: Breakfast - skips Snack - none Lunch - leftovers, sandwich, salad or eggs Snack - none Dinner - cheeseburger, pasta, pizza, or steak w/ mashed potatoes and vegetable Snack - none Beverages - water 3-4 bottles, Zevia 1/day, 1 cup coffee w/ half n half or zero sugar energy drink Alcohol - none Vitamins/Supplements - none Activity: Activities of Daily Living: Active 25% of the day. 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 Resting Metabolic Rate: 1696 Malnutrition Screening Significant unintentional weight loss? No Eating less than 75% of usual intake for more than 2 weeks? No Potential Signs of Inflammation: no identifiable sources Nutritional status: Education Materials Provided: BMI Nutrition Guidelines:Guide to Surgery and Required Vitamin Minerals after Weight Loss Surgery and Healthy Lunch/Dinner Plate, Lean Protein Foods, and Snack Ideas READINESS TO LEARN Cognitive ability: Alert and oriented Motivation to learn: Interested Family support: Unable to assess - Family not present Instruction provided to: Patient Patient learns best by: Multiple Methods Factors affecting learning: None Physical limitations affecting learning: None Likelihood of Adherence: High Referred by: Gold SANDERS Billing Type: Re-assess/15 min 2 units SIGNATURE: Laure Dhillon RD PATIENT NAME: Janay Cruz DATE: January 23, 2025 TIME: 2:33 PM [facility] [place] NoteHNO ID: [id number] Author: LAURE DHILLON RD Service: ? Author Type: Registered Dietitian Type: Progress Notes Filed: 01/23/2025 13:49 Note Text: [facility] Nutrition Therapy: Virtual Consult - Re-assessment I have communicated my name and active licensure. The patient?s identity and physical location were verified at the time of this visit. Either the patient or their legal digital sales representative has been informed of the risks and benefits of -- and alternatives to -- treatment through a remote evaluation and consents to proceed with the evaluation remotely. Nutrition Diagnosis: Overweight/obesity, related to, food/nutrition - related knowledge deficit, as evidenced by BMI above normative standard for age and gender RECOMMENDED MALNUTRITION DIAGNOSIS: NO MALNUTRITION IDENTIFIED NUTRITION CARE PLAN: Nutrition Intervention 01/23/2025: Modify type and amount of foods consumed for meals and snacks 1. Read Nutritional Guidelines Section of Your Guide to Surgery by next sessionhttps://[email or web address]/-/scassets/files/org/[email or web address]/[email or web address] [email or web address]?la=en 2. Do not skip meals. 3. Use protein shake 1x per day to replace any skipped meals or for breakfast. Aim for shakes ~150-200 calories, ~15-20 grams of protein, <5 grams of total sugar. Choose from these options that are approved for the pre-op liquid diet: Slim Fast High Protein (20 g protein), Atkins (15 g protein), Boost Glucose Control (16 g protein), Owyn (20 g protein), [place] Breakfast Essentials Light Start mixed with fat free or 1% milk 4. Use the Healthy Plate Method of portion control for meals 1/4 plate (3-4 oz) lean meat, fish, chicken, pork tenderloin, turkey, seafood, eggs/cheese 1/2 plate non-starchy vegetables (salad, greens, cabbage, spinach, brussels sprouts, broccoli, carrots, celery, peppers, green beans, cauliflower) 1/4 plate (up to 1 cup) whole grain, starch/starchy vegetables (corn, peas, smart beans, winter squash, sweet potato, rice, pasta, potato) 5. Physical activity: Aim for 150 minutes of physical activity per week. Include 10-20 minutes of strength/resistance exercise 2-3x/week. 6. Drink 64 ounces per day water. Fluids should follow these guidelines: No carbonation, no caffeine, no calories, no alcohol. 7. Start to explore post surgery bariatric vitamins/minerals: Daily multivitamin, iron 45-60 mg, calcium citrate w/ Vit D 6452-5260 mg, Vit B12 500 mcg sublingual pill or liquid, Vit D3 3000 international unit(s), B complex with 75-100 mg thiamin It is ok to take a combination bariatric vitamin to limit pill volume. Here are a few options to consider: - Bariatric Fusion: 4 Complete Multivitamin chewables per day OR 1 Multivitamin capsule and 3528-2299 mg calcium citrate per day OR 2 Multivitamin soft chews per day + 3 calcium citrate soft chews + 1 iron soft chew per day www.bariatricfusion.com - Bariatric Choice: 4 All-in-One Bariatric Multivitamin chewables per day OR 1 Once Daily Bariatric Multivitamin capsule and 9457-1716 mg calcium citrate per day www.bariatricchoice.TalentSpring - Bariatric Pal: 4 All-in-One Multivitamin chewables per day OR 1 Multivitamin One (chewable or capsule) and 5062-2702 mg calcium citrate per day www.Outlisten.bariatricpal.com/collections/bariatric-vitamins - Bariatric Advantage: 1 Ultra Solo multivitamin w/ iron (chewable or capsule) OR 2 chewable Advanced Multi EA w/ iron and 5998-2352 mg calcium citrate per day OR 2 Multi Chewy Bites and 3573-3122 mg calcium citrate and 45-60 mg iron per day www.bariatricadvantage.TalentSpring - Procare Health: 1 Bariatric Multivitamin w/ iron (capsule or chewable) and 4515-5084 mg calcium citrate per day www.Spawn Labs.TalentSpring - Celebrate: 2 Multi-Complete (chewable or capsule) OR 1 CelebrateOne Multivitamin capsule and 0703-3136 mg calcium citrate per day OR 2 Multivitamin soft chews + 3 calcium citrate soft chews + 1 iron soft chew per day https://Vanna's Vanitys.com - Barilife: 1 Just One Bariatric Multivitamin w/ iron (chewable or capsule) and 7546-7370 mg calcium citrate per day www.bariEBDSoft.com - Barimelts: 2 Multivitamin w/ iron tablets and 4619-7175 mg calcium citrate per day www.[email or web address].com Pre-op goal weight: 212 pounds Protein needs: 79 gm per day Navigator: [email or web address] Please follow the below link to join our Navigation Welcome and Next Steps Meeting. Meetings are held weekly on Tuesdays from 12:00-1:00 pm. [email or web address] m Nutrition Monitoring AND Evaluation: 1-2 lbs wt loss/week Need for Follow up: as scheduled 02/19 @ 9:45am, scheduling [phone] PROGRESS: Interval History: Patient presents for follow up nutrition consult in preparation for LSG with Dr. Malcolm. Weight change since last visit +13 lbs (206 lbs). Patient states she was hesitant about surgery and tried to lose weig (more content not included)...[facility]04-09-[facility]25 Instructions* Patient Instructions* Shankar Britt MD - 01/21/2025 3:04 PM EDT Dear Janay, It was very nice to meet you! Thank you for completing your visit today and welcome to the [facility] [place] surgery program! Below is a brief summary of what we discussed during the visit: 1. As a part of your pre-bariatric surgery evaluation, please complete the following tests ordered during this visit: EKG, chest x-ray, and abdominal ultrasound - an appointment is needed for each of these tests. You may call your local [facility] to get an appointment. Lab work - no appointment is needed for lab tests, you may complete at any [facility]. These are usually fasting labs, please be sure to fast (only water permitted) for 10-12 hours prior to the test. Any testing that is completed outside of [facility] will need faxed to [phone]. To schedule a [facility] Provider follow up visit - please call [phone] OR [phone] for assistance with scheduling. Below is additional helpful information: # Bariatric surgery contact information and resources We are sure that you will still have some additional questions and encourage you to reach out to your healthcare provider via FlyDatat OR your Patient Navigator. The contact information for each Navigator is listed below: Khadra Montoya and Alisa: Gladis Wise at [email or web address] Khadra Castellon, Leslye, and Emelia: Belinda Astudillo at [email or web address] Olayinka Henry, Rhonda, and Gold: Nafisa Arboleda at [email or web address] Hayder Pryor, and Thompson: Bisi Hill at [email or web address] # Bariatric Surgery Program Weekly Navigation Webinar Also, if you have any questions along the way, we encourage you to join our weekly Navigation webinar every Sunday from 12:00 pm - 1:00 pm. This webinar will give you an opportunity to chat with your patient navigator and learn about your specific program requirements. The link for this webinar isbelow: Link to the bariatric surgery weekly webinar: [email or web address] # Guide to Bariatric Surgery Book Additionally, you may find many of the answers to your questions in our Guide To Surgery book. Thisbook includes step by step instructions for completing your surgical path and resources for the surgical procedures, medical information, and nutrition/diet information. We would like you to review this book as your providers will refer to information contained in it. For now, please follow the link below to read online version of the book, but next time you have a FACE to FACE visit with one of your providers, please feel free to ask for a hard copy. Link to the Bariatric surgery guide book: [email or web address]/-/scassets/files/org/[email or web address] param/[email or web address]/[email or web address]?la=en Appointment Tracker for the Bariatric Surgery Program It is important to keep track of your scheduled appointments to ensure successful completion of oursurgical program. Any missed appointments can further delay your pre-surgical work-up. [facility] does offer an opt-in option for getting text message appointment reminders. Please follow the link below if you would like to opt into this service. Link to the Appointment Reminder Checklist: [email or web address] January 05, 2025 Dear Janay Cruz Welcome to our Bariatric Program My name is Jenny Hickman and I am your patient navigator for the bariatric surgery program. We'reglad you chose the [facility] [place] (BMI) We verified your coverage for bariatric surgery with your insurance company, though we strongly recommend you also confirm coverage directly with your insurance by calling the Member Services phone number on the back of your insurance card. It is important you understand your financial responsibility for specialty office visits, co-pays and iko-eu-orskla expenses, and inpatient bariatric surgery.Some outpatient services may not be covered at the same level as your surgery. One of our bariatric schedulers will be reaching out to you to schedule your initial appointments. Attached to this letter is an appointment tracker to help organize your pathway to surgery. Email is the preferred way of communication. Status updates and requests for information may be sent by email. Please check your email daily. My Email is . Please let me know if I canhelp throughout your weight loss journey. Congratulations on your decision to build a healthier life! We look forward to partnering with you towards this goal. Sincerely, Jenny Hickman Patient Navigator [facility] Staff documented [facility] encounter[facility] [place] History of Present illness Narrative* Shankar Britt MD - 01/21/2025 2:15 PM EDT Images from the original note were not included. BMI Obesity Medicine New Bariatric Surgery Consult January 21, 2025 BMI Surgical Pathway Visit type: Obesity Medicine Visit Consultation requested by Dr. Malcolm for an opinion regarding preoperative evaluation for bariatric surgery. My final recommendations will be communicated back to the requesting physician by [facility] or via [place] mail. Patient Summary: Janay Cruz is 29 year old female with class 3 obesity who presents for medicalassessment of obesity. The patient is interested in laparoscopic sleeve gastrectomy and has decidedto have the procedure with Janet Malcolm MD PMH: HTN, HLD, prediabetes, history of gestational diabetes, PCOS, fatty liver disease, iron deficiency Medications: None Contraception: s/p tubal ligation Weight Graph (see patient drawn graph scanned in chart) Weight History: She reports a family history of obesity (pGM) and childhood onset weight gain starting at the age of 11. She was approximately 200 lbs in high school and gradually gained weight since then. Highest weight has been 229 lbs with her fourth in 2020. She attributes the weight gain to the following factors: Suboptimal diet, limited physical activity, inadequate sleep duration, weight retention after 4 pregnancies (13, 8, 4, and 2 years ago), as well as tobacco cessation 5 years ago (smoked 15 years 0.5-1 PPD). Prior weight loss attempts included self-directed diet, self-directed exercise programs, working with dietitian and weight loss medications (metformin, phentermine, and Ozempic). Prior AOM trials: - Metformin x 2 years (2017 - 2019) and again x 4 months in 2023 - did not lose weight - Phentermine x 1 year (7768-1385): Lost 10 pounds but made her jittery - Ozempic x 2 months in 2023: Lost around 10 pounds but experienced severe GI side effects so stopped She initially wanted to pursue bariatric surgery in the spring 2023 and underwent preoperative evaluation and saw a few other multidisciplinary team members and completed lab work and imaging but then chickened out . She now had time to consider the surgical option and feels confident in her decision to pursue sleeve gastrectomy. 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 None Stress test: no Functional status: Do heavy work around the house, such as scrubbing floors, lifting or moving heavy furniture (8.00 METs) Sleep JOANA NO ; CPAP NO Quality: adequate, Generally restful Duration: greater than 6 hours STOP BANG 1. Do you snore? No 2. Do you often feel tired, fatigued, or sleepy during the daytime? No 3. Has anyone observed you stop breathing during sleep? No 4. Do you have (or are you being treated for) high blood pressure? Yes 5. BMI >35? Yes 6. Age >50? No 7. Neck circumference > 40 cm (15.7 inches)? 17 inches (Yes) 8. Male gender? No STOP BANG = 3/8 - intermediate risk for moderate to severe JOANA Stress: (Please see BMI psychology note) PAST MEDICAL HISTORY Diagnosis Date Anxiety Hypertension PCOS (polycystic ovarian syndrome) No history of MT, or CVA. No history of T2DM or hypothyroidism. No history of asthma, COPD No history of CKD. No history of VTE. No personal or family history of hypercoagulable disorders. History of tobacco use for 15 years smoking 0.5-1 PPD, quit 5 years ago in 2019 Current Outpatient Medications Medication Sig Dispense Refill spironolactone (ALDACTONE) 50 mg tablet Take 50 mg by mouth every morning. (Patient not taking: Reported on 01/21/2025) No current facility-administered medications for this visit. Allergies: No Known Allergies No past surgical history on file. No problems with anesthesia with previous surgeries. Social History Tobacco Use Smoking status: Former Types: Cigarettes Smokeless tobacco: Former Tobacco comments: Quit 6 years ago Substance Use Topics Alcohol use: Not Currently Drug use: Never ROS: Respiratory: No history of cough, hemoptysis, asthma, recent chest infections, or wheezing. Cardiovascular: No history of chest pain, palpitations, orthopnea, cyanosis, or pedal edema. Gastrointestinal: No blood in stool, tarry stools, pain with BMs, persistent diarrhea or constipation, or GERD symptoms Hematology/lymphology: Negative for cancer, history of VTE, hypercoagulable disorders (factor V Leiden), iron deficiency, sickle cell anemia, lymphedema, or lipedema Musculoskeletal: Negative for history of gout, NSAID use, or use of a mobility device Endocrine: No symptoms of cold/heat intolerance, polyuria or polydipsia. No history of thyroid disorders or diabetes Neuro: No history of headaches, syncope, seizures, tremors, or paralysis Exam BP 145/78 (BP Site: Left Arm, BP Position: Sitting, BP Cuff Size: Extra Large Adult) Pulse 81 Ht 162.6 cm (5' 4 ) Wt 99.5 kg (219 lb 6.4 oz) LMP 01/16/2025 BMI 37.66 kg/m HEENT: Oropharynx clear, mucous membranes moist, no acanthosis nigricans Lungs: Clear to auscultation bilaterally without wheezes, rales, or rhonchi Heart: Regular rate and rhythm without murmurs Abdomen: Soft, nontender, nondistended with positive bowel sounds in all 4 quadrants Extremities: Warm and well-perfused bilaterally without edema Skin: Warm and dry without rashes or lesions Results Labs from January 2024 reviewed: CBC - normal CMP with borderline elevated glucose of 101 Folate 17.2 Vitamin D - normal Vitamin B-12 - normal Thiamine - normal TSH 1.46 NT-proBNP <36 HDL slightly low at 33, TG borderline elevated at 165 Iron 54, TIBC 339, TSAT within deficiency range at 15.9% Ferritin 76 Hgb A1c 5.0 Assessment/Plan: Janay Cruz is a 29 year old female with Class III obesity, obesity related metabolic complications: pre-diabetes, dyslipidemia, hypertension, and PCOS and other medical conditions as below. We reviewed principles of energy metabolism, caloric intake and energy expenditure, and rationale for treatment program. We discussed the importance of healthy lifestyle modifications. She is a candidate for bariatric and metabolic surgery. Patient will be evaluated by our multidisciplinary team in preparation for surgery. Plan Based on the severity and resistance of the obesity to more conservative weight loss approaches, I believe a surgical intervention is the best and most appropriate treatment option. She has a 0-month insurance requirement prior to surgery. Reviewed BMI Nutrition Tips for Bariatric Surgery pamphlet. Encouraged the patient to improve physical activity, we discussed the benefits of combined cardiovascular and strength exercises. Discussed the importance of taking postoperative vitamins and reviewed vitamin levels ordered today. Patient understands that any variations in B vitamins or vitamin D levels will be corrected preoperatively. BMI Obesity Med Patient Tasks Preop Workup: CXR: Needed EKG: Needed RUQ US: Needed Labs: Needed - CBC with diff, CMP, HgbA1c, lipid panel, TSH, NT-proBNP, iron, TIBC, ferritin, thiamine, folate, vitamin B-12, vitamin D Sleep study: Needed Cardiology: N/A Pulmonary: N/A Vascular: N/A I spent a total of 50 minutes on the date of the service which included preparing to see the patient, [id number] patient care, completing clinical documentation, performing a medically appropriate examination, counseling and educating the patient/family/caregiver, and ordering medications, tests,or procedures. Patient was discussed with Dr. Alejandre. Shankar Britt MD, MSc, MPH, KATHLEEN Obesity Medicine Fellow This note was created using [employer] dictation software and may contain errors that were inadvertently missed during proofreading. If you have any concerns regarding this dictation, please feel free tocontact me for clarification. documented in this encounter[facility]25 NoteHNO ID: [id number] Author: SHANKAR BRITT MD Service: ? Author Type: Physician Type: Progress Notes Filed: 03/10/2025 10:58 Note Text: BMI Obesity Medicine New Bariatric Surgery Consult January 21, 2025 BMI Surgical Pathway Visit type: Obesity Medicine Visit Consultation requested by Dr. Malcolm for an opinion regarding preoperative evaluation for bariatric surgery. My final recommendations will be communicated back to the requesting physician by way of shared medical record or via US mail. Patient Summary: Janay Cruz is 29 year old female with class 3 obesity who presents for medical assessment of obesity. The patient is interested in laparoscopic sleeve gastrectomy and has decided to have the procedure with Janet Malcolm MD PMH: HTN, HLD, prediabetes, history of gestational diabetes, PCOS, fatty liver disease, iron deficiency Medications: None Contraception: s/p tubal ligation Weight Graph (see patient drawn graph scanned in chart) Weight History: She reports a family history of obesity (pGM) and childhood onset weight gain starting at the age of 11. She was approximately 200 lbs in high school and gradually gained weight since then. Highest weight has been 229 lbs with her fourth in 2020. She attributes the weight gain to the following factors: Suboptimal diet, limited physical activity, inadequate sleep duration, weight retention after 4 pregnancies (13, 8, 4, and 2 years ago), as well as tobacco cessation 5 years ago (smoked 15 years 0.5-1 PPD). Prior weight loss attempts included self-directed diet, self-directed exercise programs, working with dietitian and weight loss medications (metformin, phentermine, and Ozempic). Prior AOM trials: - Metformin x 2 years (2017 - 2019) and again x 4 months in 2023 - did not lose weight - Phentermine x 1 year ([id number]): Lost 10 pounds but made her jittery - Ozempic x 2 months in 2023: Lost around 10 pounds but experienced severe GI side effects so stopped She initially wanted to pursue bariatric surgery in the spring 2023 and underwent preoperative evaluation and saw a few other multidisciplinary team members and completed lab work and imaging but then chickened out . She now had time to consider the surgical option and feels confident in her decision to pursue sleeve gastrectomy. 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 None Stress test: no Functional status: Do heavy work around the house, such as scrubbing floors, lifting or moving heavy furniture (8.00 METs) Sleep JOANA NO ; CPAP NO Quality: adequate, Generally restful Duration: greater than 6 hours STOP BANG 1. Do you snore? No 2. Do you often feel tired, fatigued, or sleepy during the daytime? No 3. Has anyone observed you stop breathing during sleep? No 4. Do you have (or are you being treated for) high blood pressure? Yes 5. BMI >35? Yes 6. Age >50? No 7. Neck circumference > 40 cm (15.7 inches)? 17 inches (Yes) 8. Male gender? No STOP BANG = 3/8 - intermediate risk for moderate to severe JOANA Stress: (Please see BMI psychology note) PAST MEDICAL HISTORY Diagnosis Date Anxiety Hypertension PCOS (polycystic ovarian syndrome) No history of MT, or CVA. No history of T2DM or hypothyroidism. No history of asthma, COPD No history of CKD. No history of VTE. No personal or family history of hypercoagulable disorders. History of tobacco use for 15 years smoking 0.5-1 PPD, quit 5 years ago in 2019 Current Outpatient Medications Medication Sig Dispense Refill spironolactone (ALDACTONE) 50 mg tablet Take 50 mg by mouth every morning. (Patient not taking: Reported on 01/21/2025) No current facility-administered medications for this visit. Allergies: No Known Allergies No past surgical history on file. No problems with anesthesia with previous surgeries. Social History Tobacco Use Smoking status: Former Types: Cigarettes Smokeless tobacco: Former Tobacco comments: Quit 6 years ago Substance Use Topics Alcohol use: Not Currently Drug use: Never ROS: Respiratory: No history of cough, hemoptysis, asthma, recent chest infections, or wheezing. Cardiovascular: No history of chest pain, palpitations, orthopnea, cyanosis, or pedal edema. Gastrointestinal: No blood in stool, tarry stools, pain with BMs, persistent diarrhea or constipation, or GERD symptoms Hematology/lymphology: Negative for cancer, history of VTE, hypercoagulable disorders (factor V Leiden), iron deficiency, sickle cell anemia, lymphedema, or lipedema Musculoskeletal: Negative for history of gout, NSAID use, or use of a mobility device Endocrine (more content not included)...[facility]04[facility] History of Present illness Narrative* Janet Malcolm MD - 01/20/2025 12:45 PM EDT This is a virtual visit using HIPAA compliant video platform. It required patient-provider interaction for the medical decision making as documented below. Assessment NEW BARIATRIC PATIENT PATIENT NAME: Janay Cruz REASON FOR CONSULT: Morbid Obesity REQUESTING PHYSICIAN: Jaycob DATE of SERVICE: 01/15/2025 TIME of SERVICE: 4:10 PM PCP: No primary care provider on file. CC: Morbid Obesity HPI: Ms. Cruz is a 29 year old female who is referred for evaluation for Bariatric surgery. Patient does not have any specific complaints today. Patient previously completed surgery consult 12/2023. Patient's obesity related chronic medical conditions include: Hx: PCOS, HTN Diabetes: No Hypertension: Yes Hyperlipedemia:No OA:No JOANA: No DVT/PE:No Gastroesophageal reflux: No EGD: No Patient is inclined towards: sleeve gastrectomy History of abdominal surgeries: Tubal ligation PAST MEDICAL HISTORY: PAST MEDICAL HISTORY Diagnosis Date Anxiety Hypertension PCOS (polycystic ovarian syndrome) PAST SURGICAL HISTORY: No past surgical history on file. SOCIAL HISTORY: Social History Tobacco Use Smoking status: Former Types: Cigarettes Smokeless tobacco: Former Tobacco comments: Quit 6 years ago Substance Use Topics Alcohol use: Not Currently Drug use: Never ALLERGIES: ALLERGIES Not on File FAMILY HISTORY: No family history on file. MEDICATIONS: Prior to Admission Medications: spironolactone (ALDACTONE) 50 mg tablet Take 50 mg by mouth every morning. No current facility-administered medications for this visit. FAMILY HISTORY: No family history on file. Review of Systems: The remainder of the review of systems is negative. IMPRESSION Morbid Obesity PLAN: Patient is a very pleasant 29 year old with morbid obesity, patient of No primary care provider on file. with a There is no height or weight on file to calculate BMI.. Patient is here today seeking information regarding weight loss. Patient does have hypertension at baseline. She does not have any of the chronic comorbidities related to obesity. She does not complain of any significant acid reflux and she does not take any medications for the same. I have discussed in detail patients options including sleeve gastrectomy and Shonna-en-Y gastric bypass. Based on patient's BMI and medical co morbidities patient would be a candidate for either sleevegastrectomy/Shonna-en-Y gastric bypass but prefers to undergo a sleeve gastrectomy based on simplicity.. Patient meets NIH criteria for surgery. I have discussed with patient regarding peoperative goal weight prior to liquid fast: Per cupola man Surgically Cleared with completion of the below: 1) Pre op EGD needed: No, no symptoms at baseline 2) Consults- No Patient will continue through the program and will come back to me prior to planned surgery for discussion regarding options and pre op teaching. I spent approximately 45 minutes with the patient with most of the time spent in counseling. I have reviewed with this patient probably and potential medical and surgical complications of bariatric surgery, nutritional changes, post- operative recovery, and the potential for excess skin and other cosmetic sequelae following surgery and subsequent weight loss. Risks of nicotine before and after bariatric surgery were also discussed with patient. This office note will be sent to the referring provider via electronic medical record and US mail. Janet Malcolm MD Medical Decision Making: Problems: Moderate: 2+ stable chronic illnesses Risk: High: Decision on elective major surgery w/ risk factors Medical Decision Making Level: 4 - Moderate documented in this encounterAccess [facility] [place]04-08-2025 NoteHNO ID: [id number] Author: JANET MALCOLM MD Service: ? Author Type: Physician Type: Progress Notes Filed: 01/20/2025 12:54 Note Text: This is a virtual visit using HIPAA compliant video platform. It required patient-provider interaction for the medical decision making as documented below. Assessment NEW BARIATRIC PATIENT PATIENT NAME: Janay Cruz REASON FOR CONSULT: Morbid Obesity REQUESTING PHYSICIAN: Self DATE of SERVICE: 01/15/2025 TIME of SERVICE: 4:10 PM PCP: No primary care provider on file. CC: Morbid Obesity HPI: Ms. Cruz is a 29 year old female who is referred for evaluation for Bariatric surgery. Patient does not have any specific complaints today. Patient previously completed surgery consult 12/2023. Patient's obesity related chronic medical conditions include: Hx: PCOS, HTN Diabetes: No Hypertension: Yes Hyperlipedemia:No OA:No JOANA: No DVT/PE:No Gastroesophageal reflux: No EGD: No Patient is inclined towards: sleeve gastrectomy History of abdominal surgeries: Tubal ligation PAST MEDICAL HISTORY: PAST MEDICAL HISTORY Diagnosis Date - Anxiety - Hypertension - PCOS (polycystic ovarian syndrome) PAST SURGICAL HISTORY: No past surgical history on file. SOCIAL HISTORY: Social History Tobacco Use - Smoking status: Former Types: Cigarettes - Smokeless tobacco: Former - Tobacco comments: Quit 6 years ago Substance Use Topics - Alcohol use: Not Currently - Drug use: Never ALLERGIES: ALLERGIES Not on File FAMILY HISTORY: No family history on file. MEDICATIONS: Prior to Admission Medications: - spironolactone (ALDACTONE) 50 mg tablet Take 50 mg by mouth every morning. No current facility-administered medications for this visit. FAMILY HISTORY: No family history on file. Review of Systems: The remainder of the review of systems is negative. IMPRESSION Morbid Obesity PLAN: Patient is a very pleasant 29 year old with morbid obesity, patient of No primary care provider on file. with a There is no height or weight on file to calculate BMI.. Patient is here today seeking information regarding weight loss. Patient does have hypertension at baseline. She does not have any of the chronic comorbidities related to obesity. She does not complain of any significant acid reflux and she does not take any medications for the same. I have discussed in detail patients options including sleeve gastrectomy and Shonna-en-Y gastric bypass. Based on patient's BMI and medical co morbidities patient would be a candidate for either sleeve gastrectomy/Shonna-en-Y gastric bypass but prefers to undergo a sleeve gastrectomy based on simplicity.. Patient meets NIH criteria for surgery. I have discussed with patient regarding peoperative goal weight prior to liquid fast: Per cupola man Surgically Cleared with completion of the below: 1) Pre op EGD needed: No, no symptoms at baseline 2) Consults- No Patient will continue through the program and will come back to me prior to planned surgery for discussion regarding options and pre op teaching. I spent approximately 45 minutes with the patient with most of the time spent in counseling. I have reviewed with this patient probably and potential medical and surgical complications of bariatric surgery, nutritional changes, post-operative recovery, and the potential for excess skin and other cosmetic sequelae following surgery and subsequent weight loss. Risks of nicotine before and after bariatric surgery were also discussed with patient. This office note will be sent to the referring provider via electronic medical record and US mail. Jnaet Malcolm MD Medical Decision Making: Problems: Moderate: 2+ stable chronic illnesses Risk: High: Decision on elective major surgery w/ risk factors Medical Decision Making Level: 4 - [facility]erate[facility] NoteHNO ID: [id number] Author: HOLLY MONTOYA MD Service: ? Author Type: Physician Type: Progress Notes Filed: 01/08/2025 16:29 Note Text: We discussed about the BEST RCT, comparing bariatric surgery vs Semaglutide vs Tirzepatide (IRB # [id number], PI: Holly Montoya MD). I explained to the patient the eligibility criteria, randomization process, follow-up time, and 2-year commitment. All questions and concerns were answered. The patient declined to participate. She would like to proceed with bariatric surgery. Holly Montoya MD [facility] 08[facility]03[facility] History of Present illness Narrative* Holly Montoya MD - 01/08/2025 4:29 PM EDT We discussed about the BEST RCT, comparing bariatric surgery vs Semaglutide vs Tirzepatide (IRB # [id number], PI: Holly Montoya MD). I explained to the patient the eligibility criteria, randomization process, follow-up time, and 2-year commitment. All questions and concerns were answered. The patient declined to participate. She would like to proceed with bariatric surgery. Holly Montoya MD January 08, 2025 documented in this encounterAccess [facility]03-10-2025 History of Present illness Narrative* Nelda Uribe NP - 12/22/2024 1:20 PM EDT Images from the original note were not included. SUBJECTIVE: Janay Cruz is a 29 y.o. female presents with chief complaint of No chief complaint on file. Pt presents to become established. Prev has seen internal med as a PCP, has been some time since she was seen. Has not had any recent labs. 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 Pt would like to discuss weight loss medication. Has tried injectable sample in the past but insurance would not cover. Has looked into bariatric surgery but chickened out and canceled that. Has done adipex before also. No other concernsat this time. Review of Systems: Review of Systems All other systems reviewed and are negative. Current Medications: Current Outpatient Medications on File Prior to Visit Medication Sig Dispense Refill [DISCONTINUED] ammonium lactate (Lac-Hydrin) 12 % lotion Apply to affected areas on body daily. 396g 11 [DISCONTINUED] clindamycin (Cleocin T) 1 % external solution Apply to affected areas on the backs of the thighs, once daily when flared, 30 day supply. 60 mL 11 [DISCONTINUED] metFORMIN (Glucophage) 1000 MG tablet Take 1 tablet (1,000 mg) by mouth in the morning. Take with meals. 30 tablet 5 [DISCONTINUED] Semaglutide,0.25 or 0.5MG/DOS, (Ozempic, 0.25 or 0.5 MG/DOSE,) 2 MG/3ML solution pen-injector Inject 0.5 mg under the skin 1 (one) time per week for 30 days, THEN 1 mg 1 (one) time perweek. 3 mL 3 [DISCONTINUED] spironolactone (Aldactone) 50 MG tablet Take 1 tablet (50 mg) by mouth Daily 90 tablet 3 [DISCONTINUED] Tirzepatide (Mounjaro) 2.5 MG/0.5ML solution pen-injector Inject 2.5 mg under the skin 1 (one) time per week 2 mL 1 No current facility-administered medications on file prior to visit. I have reviewed and reconciled the history and medication list with the patient today. 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 Past Medical History: Past Medical History: Diagnosis Date Anxiety zoloft no down to 25 mg weening off Gestational diabetes Heart palpitations Family History: Family History Problem Relation Name Age of Onset No Known Problems Mother No Known Problems Father No Known Problems Sister Healthy No Known Problems Sister Healthy No Known Problems Sister Healthy No Known Problems Brother Celiac disease Maternal Grandmother Diabetes Paternal Grandmother Hypertension Paternal Grandmother Arthritis Paternal Grandmother Allergies: No Known Allergies Surgical History: Past Surgical History: Procedure Laterality Date CONTRACEPTIVE CAPSULE REMOVAL 04/04/2023 Nexplanon removal INSERTION OF CONTRACEPTIVE CAPSULE 06/28/2022 Nexplanon insertion INTRAUTERINE DEVICE INSERTION 04/11/2023 Paragard TONSILECTOMY, ADENOIDECTOMY, BILATERAL MYRINGOTOMY AND TUBES 2016 TONSILLECTOMY T & A, age 24 TUBAL LIGATION Bilateral 09/04/2023 VAGINAL DELIVERY 2010 x4: 2010, 2015, 2020, 05/05/2022 Social History: Social Drivers of Health Tobacco Use: Medium Risk (12/22/2024) Patient History Smoking Tobacco Use: Former Smokeless Tobacco Use: Never Passive Exposure: Not on file Alcohol Use: Not At Risk (12/22/2024) AUDIT-C Frequency of Alcohol Consumption: Never Average Number of Drinks: Patient does not drink Frequency of Binge Drinking: Never Financial Resource Strain: Not on file Food Insecurity: Not on file Transportation Needs: Not on file Physical Activity: Not on file Stress: Not on file Social Connections: Not on file Intimate Partner Violence: Not on file Depression: Not at risk (01/07/2024) Received from [facility] PHQ-2 PHQ-2 score: 0 Housing Stability: Not on file Health Literacy: Not on file OBJECTIVE: Visit Vitals BP 122/60 Pulse 67 Temp 98.8 F Ht 5' 3 Wt 212 lb 12.8 oz SpO2 96% BMI 37.70 kg/m OB Status Having periods Smoking Status Former BSA 2.07 m Physical Exam Constitutional: Appearance: Normal appearance. HENT: Head: Normocephalic and atraumatic. Right Ear: Tympanic membrane normal. Left Ear: Tympanic membrane normal. Nose: Nose normal. Mouth/Throat: Mouth: Mucous membranes are moist. Pharynx: Oropharynx is clear. Eyes: Extraocular Movements: Extraocular movements intact. Neck: Vascular: No carotid bruit. Cardiovascular: Rate and Rhythm: Normal rate and regular rhythm. Heart sounds: Normal heart sounds. Pulmonary: Effort: Pulmonary effort is normal. Breath sounds: Normal breath sounds. No wheezing, rhonchi or rales. Musculoskeletal: Cervical back: Neck supple. Lymphadenopathy: Cervical: No cervical adenopathy. Skin: General: Skin is warm and dry. Neurological: General: No focal deficit present. Mental Status: She is alert and oriented to person, place, and time. Psychiatric: Mood and Affect: Mood normal. Behavior: Behavior normal. Judgment: Judgment normal. No results found for this or any previous visit (from the past 4 weeks). ASSESSMENT AND PLAN: Assessment/Plan Diagnoses and all orders for this visit: Obesity (BMI 30-39.9) - Hemoglobin A1c - Comprehensive metabolic panel - CBC - Lipid panel - Tsh+free t4 - Insulin, fasting Insulin resistance - Hemoglobin A1c - Comprehensive metabolic panel - CBC - Lipid panel - Tsh+free t4 - Insulin, fasting Low HDL (under 40) (CMS/HCC) - Hemoglobin A1c - Comprehensive metabolic panel - CBC - Lipid panel - Tsh+free t4 - Insulin, fasting Labs to be completed. Advised on diet modifications and starting to exercise. Will see back in 2 weeks to review labs, see how exercise is going and further discuss weight loss meds. Follow up in about 2 weeks (around 01/05/2025). documented in this encounterSaint [facility]'s East [id number] Telephone encounter Note* Telephone Encounter - Anna Gordillo - 03/19/2024 8:10 AM EDT [facility], patient was scheduled on 03/12/2024 for an EGD. She no showed and has not rescheduled. They are closing the referral at this time, Thank You! [facility]06-05-2024 Miscellaneous Notes* Telephone Encounter - Anna Gordillo - 03/19/2024 8:10 AM EDT Re[facility] stating, patient was scheduled on 03/12/2024 for an EGD. She no showed and has not rescheduled. They are closing the referral at this time, Thank You! documented in [facility] encounterAccess [facility] History of Present illness Narrative* Sabi Patton RT(R) - 01/21/2024 10:10 AM EDT Radiology Service Progress Note PATIENT NAME: Janay Cruz DATE OF SERVICE: January 21, 2024 TIME: 9:39 AM PATIENT IDENTITY VERIFICATION COMPLETED USING TWO (2) IDENTIFIERS: Name and Date of confirmedby patient verbally. FALL SCREENING: Has the patient had 2 falls in the last year or 1 fall with injury or currently using an Ambulatory Assistive Device (Walker, Cane, Wheelchair, Crutches, etc.)? No PATIENT GENDER DATA: Female. status: : No status: NO. PATIENT RELEVANT IMPLANT DATA REVIEWED: Not Applicable PATIENT PRESENTS WITH AN IMPLANTABLE OR ATTACHED INDUCTION HEAT TREATER: No RADIOLOGY DEPARTMENT: General X-ray: Exam(s) Completed: Chest X-Ray PERIPHERAL IV DATA: Not applicable SIGNED BY: RT Ella(R) January 21, 2024 9:39 AM documented in this encounterAccess Hospital [place]04-[facility] History of Present illness Narrative* Nancie Collins RT(R) - 01/21/2024 9:15 AM EDT Radiology Service Progress Note PATIENT NAME: Janay Cruz DATE OF SERVICE: January 21, 2024 TIME: 9:41 AM PATIENT IDENTITY VERIFICATION COMPLETED USING TWO (2) IDENTIFIERS: Name and Date of confirmedby patient verbally and Name and Date of confirmed by identification band. FALL SCREENING: Has the patient had 2 falls in the last year or 1 fall with injury or currently using an Ambulatory Assistive Device (Walker, Cane, Wheelchair, Crutches, etc.)? No PATIENT GENDER DATA: Female. status: : No status: N/A PATIENT RELEVANT IMPLANT DATA REVIEWED: Not Applicable PATIENT PRESENTS WITH AN IMPLANTABLE OR ATTACHED INDUCTION HEAT TREATER: No RADIOLOGY DEPARTMENT: Ultrasound PERIPHERAL IV DATA: Not applicable SIGNED BY: RT Dianna(Conrad) January 21, 2024 9:41 AM documented in this encounterAccess Hospital [place]03-[facility]24 History of Present illness Narrative* Janet Malcolm MD - 12/21/2023 2:40 PM EST This is a virtual visit using HIPAA compliant video platform. It required patient-provider interaction for the medical decision making as documented below. Assessment NEW BARIATRIC PATIENT PATIENT NAME: Janay Cruz REASON FOR CONSULT: Morbid Obesity REQUESTING PHYSICIAN: None DATE of SERVICE: 12/20/2023 TIME of SERVICE: 1:51 PM PCP: No primary care provider on file. CC: Morbid Obesity HPI: Ms. Cruz is a 28 year old female who is referred for evaluation for Bariatric surgery. Patient does not have any specific complaints today. Patient's obesity related chronic medical conditions include: Diabetes: No Hypertension: Yes Hyperlipedemia:No OA:No JOANA: No DVT/PE:No Gastroesophageal reflux: No, not on any medications EGD: No PCOS: Yes, on spironolactone Patient is inclined towards: sleeve gastrectomy History of abdominal surgeries: Tubal ligation PAST MEDICAL HISTORY: No past medical history on file. PAST SURGICAL HISTORY: No past surgical history on file. SOCIAL HISTORY: ALLERGIES: ALLERGIES Not on File FAMILY HISTORY: No family history on file. MEDICATIONS: Prior to Admission Medications: spironolactone (ALDACTONE) 50 mg tablet Take 50 mg by mouth every morning. No current facility-administered medications for this visit. FAMILY HISTORY: No family history on file. Review of Systems: The remainder of the review of systems is negative. IMPRESSION Morbid Obesity PLAN: Patient is a very pleasant 28 year old with morbid obesity, patient of No primary care provider on file. with a BMI of 36.5. Patient is here today seeking information regarding weight loss. Patient does have some chronic medical comorbidities which includes PCOS for which she is on spironolactone. She also has hypertension. She does not complain of any acid reflux symptoms and she does not take any medications for acid reflux. Her only previous abdominal surgery Laparoscopic tubal ligation. Shedoes not smoke and she does not consume significant amounts of alcohol. I have discussed in detail patients options including sleeve gastrectomy and Shonna-en-Y gastric bypass. Based on patient's BMI and medical co morbidities patient would be a candidate for either sleevegastrectomy/Shonna-en-Y gastric bypass but prefers to undergo a sleeve gastrectomy because of lesser side effects and less complicated surgery. Patient meets NIH criteria for surgery. I have discussed with patient regarding peoperative goal weight prior to liquid fast: Per cupola man Surgically Cleared with completion of the below: 1) Pre op EGD needed: Yes 2) Consults- No Patient will continue through the program and will come back to me prior to planned surgery for discussion regarding options and pre op teaching. I spent approximately 45 minutes with the patient with most of the time spent in counseling. I have reviewed with this patient probably and potential medical and surgical complications of bariatric surgery, nutritional changes, post- operative recovery, and the potential for excess skin and other cosmetic sequelae following surgery and subsequent weight loss. Risks of nicotine before and after bariatric surgery were also discussed with patient. This office note will be sent to the referring provider via electronic medical record and US mail. Janet Malcolm MD Medical Decision Making: Problems: Moderate: 2+ stable chronic illnesses Data: Unique test(s) ordered: 1 Risk: High: Decision on elective major surgery w/ risk factors Medical Decision Making Level: 4 - Moderate documented in this encounterAccess Hospital [place]02-29-2024 Instructions* Patient Instructions* Laure Dhillon, RD - 12/13/2023 9:42 AM EST Nutrition Intervention 12/13/2023: Modify type and amount of foods consumed for meals and snacks 1. Read Nutritional Guidelines Section of Your Guide to Surgery by next session [email or web address]/[email or web address]/[email or web address]?la=[email or web address] n 2. Do not skip meals. 3. Use protein shake 1x per day to replace any skipped meals or for breakfast. Aim for shakes ~150-200 calories, ~15-20 grams of protein, <5 grams of total sugar. Choose from these options that are approved for the pre-op liquid diet: Slim Fast High Protein (20 g protein), Atkins (15 g protein),Boost Glucose Control (16 g protein), Owyn (20 g protein), [place] Breakfast Essentials Light Start mixed with fat free or 1% milk 4. Use the Healthy Plate Method of portion control for meals 1/4 plate (3-4 oz) lean meat, fish, chicken, pork tenderloin, turkey, seafood, eggs/cheese 1/2 plate non-starchy vegetables (salad, greens, cabbage, spinach, brussels sprouts, broccoli, carrots, celery, peppers, green beans, cauliflower) 1/4 plate (up to 1 cup) whole grain, starch/starchy vegetables (corn, peas, smart beans, winter squash, sweet potato, rice, pasta, potato) 5. Physical activity: Aim for 150 minutes of physical activity per week. Include 10-20 minutes of strength/resistance exercise 2-3x/week. 6. Drink 64 ounces per day water. Fluids should follow these guidelines: No carbonation, no caffeine, no calories, no alcohol. 7. Start to explore post surgery bariatric vitamins/minerals: Daily multivitamin, iron 45-60 mg, calcium citrate w/ Vit D 0822-5514 mg, Vit B12 500 mcg sublingual pill or liquid, Vit D3 3000 international unit(s), B complex with 75-100 mg thiamin It is ok to take a combination bariatric vitamin to limit pill volume. Here are a few options to consider: - Bariatric Fusion: 4 Complete Multivitamin chewables per day OR 1 Multivitamin capsule and 1839-6374 mg calcium citrate per day OR 2 Multivitamin soft chews per day + 3 calcium citrate soft chews + 1 iron soft chew per day www.bariatricfusion.com - Bariatric Choice: 4 All-in-One Bariatric Multivitamin chewables per day OR 1 Once Daily BariatricMultivitamin capsule and 8712-6688 mg calcium citrate per day www.bariatricchoice.com - Bariatric Pal: 4 All-in-One Multivitamin chewables per day OR 1 Multivitamin One (chewable or capsule) and 0356-3391 mg calcium citrate per day www.[email or web address].[email or web address].[email or web address]/collections/[email or web address]-vitamins - Bariatric Advantage: 1 Ultra Solo multivitamin w/ iron (chewable or capsule) OR 2 chewable Advanced Multi EA w/ iron and 8500-8307 mg calcium citrate per day OR 2 Multi Chewy Bites and 4415-8616 mgcalcium citrate and 45-60 mg iron per day www.[email or web address].[email or web address] - Procare Health: 1 Bariatric Multivitamin w/ iron (capsule or chewable) and 7482-9248 mg calcium citrate per day www.Spawn Labs.[email or web address] - Celebrate: 2 Multi-Complete (chewable or capsule) OR 1 CelebrateOne Multivitamin capsule and 4186-4666 mg calcium citrate per day OR 2 Multivitamin soft chews + 3 calcium citrate soft chews + 1 iron soft chew per day https://Tri[employer] PartnersteLocalbases.TalentSpring - Barilife: 1 Just One Bariatric Multivitamin w/ iron (chewable or capsule) and 4153-9242 mg calcium citrate per day www.bariEBDSoft.[email or web address] - Barimelts: 2 Multivitamin w/ iron tablets and 4609-0047 mg calcium citrate per day www.[email or web address].com Pre-op goal weight: 199 pounds Protein needs: 77 gm per day Navigator: Bisi Hill [email or web address] Please follow the below link to join our Navigation Welcome and Next Steps Meeting. Meetings are held weekly on Tuesdays from 12:00-1:00 pm. [email or web address] m Nutrition Monitoring & Evaluation: 1-2 lbs wt loss/week Need for Follow up: December - Karlene Wise APRN.SERVICE STATION OPERATOR; January - Laure Dhillon RD, LD documented in this encounterAccess Hospital [place]02-29-[facility] History of Present illness Narrative* Laure Dhillon RD - 12/13/2023 9:00 AM EST [facility] Nutrition Therapy: Virtual Consult - Initial Assessment I have communicated my name and active licensure. The patient s identity and physical location wereverified at the time of this visit. Either the patient or their legal digital sales representative has been informed of the risks and benefits of -- and alternatives to -- treatment through a remote evaluation andconsents to proceed with the evaluation remotely. Nutrition Diagnosis: Overweight/obesity, related to, food/nutrition - related knowledge deficit, asevidenced by BMI above normative standard for age and gender. RECOMMENDED MALNUTRITION DIAGNOSIS: NO MALNUTRITION IDENTIFIED NUTRITION CARE PLAN Nutrition Intervention 12/13/2023: Modify type and amount of foods consumed for meals and snacks 1. Read Nutritional Guidelines Section of Your Guide to Surgery by next session [email or web address]://[email or web address].[email or web address]/-/scassets/files/org/[email or web address]/[email or web address]/[email or web address]?la=[email or web address] n 2. Do not skip meals. 3. Use protein shake 1x per day to replace any skipped meals or for breakfast. Aim for shakes ~150-200 calories, ~15-20 grams of protein, <5 grams of total sugar. Choose from these options that are approved for the pre-op liquid diet: Slim Fast High Protein (20 g protein), Atkins (15 g protein),Boost Glucose Control (16 g protein), Owyn (20 g protein), [place] Breakfast Essentials Light Start mixed with fat free or 1% milk 4. Use the Healthy Plate Method of portion control for meals 1/4 plate (3-4 oz) lean meat, fish, chicken, pork tenderloin, turkey, seafood, eggs/cheese 1/2 plate non-starchy vegetables (salad, greens, cabbage, spinach, brussels sprouts, broccoli, carrots, celery, peppers, green beans, cauliflower) 1/4 plate (up to 1 cup) whole grain, starch/starchy vegetables (corn, peas, smart beans, winter squash, sweet potato, rice, pasta, potato) 5. Physical activity: Aim for 150 minutes of physical activity per week. Include 10-20 minutes of strength/resistance exercise 2-3x/week. 6. Drink 64 ounces per day water. Fluids should follow these guidelines: No carbonation, no caffeine, no calories, no alcohol. 7. Start to explore post surgery bariatric vitamins/minerals: Daily multivitamin, iron 45-60 mg, calcium citrate w/ Vit D 2327-8511 mg, Vit B12 500 mcg sublingual pill or liquid, Vit D3 3000 international unit(s), B complex with 75-100 mg thiamin It is ok to take a combination bariatric vitamin to limit pill volume. Here are a few options to consider: - Bariatric Fusion: 4 Complete Multivitamin chewables per day OR 1 Multivitamin capsule and 5698-5045 mg calcium citrate per day OR 2 Multivitamin soft chews per day + 3 calcium citrate soft chews + 1 iron soft chew per day www.bariatricfusion.com - Bariatric Choice: 4 All-in-One Bariatric Multivitamin chewables per day OR 1 Once Daily BariatricMultivitamin capsule and 9188-8878 mg calcium citrate per day www.bariatricchoice.com - Bariatric Pal: 4 All-in-One Multivitamin chewables per day OR 1 Multivitamin One (chewable or capsule) and 0544-3449 mg calcium citrate per day www.store.[email or web address].com/collections/bariatric-vitamins - Bariatric Advantage: 1 Ultra Solo multivitamin w/ iron (chewable or capsule) OR 2 chewable Advanced Multi EA w/ iron and 6392-8176 mg calcium citrate per day OR 2 Multi Chewy Bites and 3991-4969 mgcalcium citrate and 45-60 mg iron per day www.bariatricadvantage.com - Procare Health: 1 Bariatric Multivitamin w/ iron (capsule or chewable) and 6417-2451 mg calcium citrate per day www.Spawn Labs.TalentSpring - Celebrate: 2 Multi-Complete (chewable or capsule) OR 1 CelebrateOne Multivitamin capsule and 9693-9327 mg calcium citrate per day OR 2 Multivitamin soft chews + 3 calcium citrate soft chews + 1 iron soft chew per day https://celebrateLocalbases.[email or web address] - Barilife: 1 Just One Bariatric Multivitamin w/ iron (chewable or capsule) and 6855-2134 mg calcium citrate per day www.bariEBDSoft.TalentSpring - Barimelts: 2 Multivitamin w/ iron tablets and 1654-4954 mg calcium citrate per day www.[email or web address].[email or web address] Pre-op goal weight: 199 pounds Protein needs: 77 gm per day Navigator: [email or web address] Please follow the below link to join our Navigation Welcome and Next Steps Meeting. Meetings are held weekly on Tuesdays from 12:00-1:00 pm. [email or web address]=[facility] institutecc[facility].Material Wrld.co m Nutrition Monitoring & Evaluation: 1-2 lbs wt loss/week Need for Follow up: December - Karlene Wise APRN.SERVICE STATION OPERATOR; January - Laure Dhillon RD, LD Patient presents for initial nutrition consult in preparation for bariatric surgery. Patient is interested in LSG (Dr. Malcolm). Height and weight discussed today. Presents with Class II obesity, Body mass index is 36.49 kg/m . Significant medical comorbidities include HTN, PCOS, insulin resistance, prediabetes. Patient has realistic (39 % TWL) weight loss expectations, anticipating weight loss of ~80 lbs., with desired weight of 125 lbs. following surgery. Patient has limited understanding ofweight loss surgery and nutritional implications following surgery. Previous diet attempts include self-directed dieting and exercise, AOM (phentermine). Weight history significant for family historyof obesity, early onset weight gain, post weight retention. Greatest barrier to weight loss in the past has been consumption of unhealthy foods, stress eating. Greatest motivation for surgery includes increased energy, health, QOL. Diet recall indicates inconsistent meal pattern with frequent skipped meals. Some meals are balanced and other lacks adequate protein and vegetable. She reports regular intake of processed foods, refined grains and fast food/take out. Fluid intake is adequate although often includes SSB and diet soda. Physical activity includes ADL with 4 children and two of them under 2 years old, however not including and structured exercise at this time. Lawrence body weight: 141 lbs. Excess body weight: 65 lbs. (Based on initial 206 lbs today) Goal weight pre-op: 199 lbs. Protein needs estimated: 77 gm (1.2 g protein/kg IBW) Patient meets the National Institutes of Health guidelines for weight loss surgery and has [place] Medicaid Insurance therefore is required to complete 6 months of Nutrition Intervention for clearance for surgery. Today is visit 1 of 6 (Jacquie 12/13/23). Patient's symptoms are: Weight Concerns: weight gain Diet History: Breakfast - skips Snack - none Lunch 12pm- veggie salad or ham and cheese sandwich on white w/ chips Snack - occasional yogurt or peanuts, cheese stick or pickles Dinner - pizza, steak w/ mashed and veg, cheeseburger and fries Snack - none Beverages - body armor, water 3 bottles, diet pop Alcohol- none Vitamins/Supplements - none Activity: Activities of Daily Living: Active 25% of the day. 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 Resting Metabolic Rate: 1607 Malnutrition Screening Significant unintentional weight loss? No Eating less than 75% of usual intake for more than 2 weeks? No Potential Signs of Inflammation: no identifiable sources Education Materials Provided: BMI Nutrition Guidelines:Guide to Surgery and Required Vitamin Minerals after Weight Loss Surgery and Healthy Lunch/Dinner Plate and Snack Ideas READINESS TO LEARN Cognitive ability: Alert and oriented Motivation to learn: Interested Family support: Unable to assess - Family not present Instruction provided to: Patient Patient learns best by: Multiple Methods Factors affecting learning: None Physical limitations affecting learning: None Referred by: [facility] Billing Type: Initial Assess/15 min 2 units SIGNATURE: Laure Dhillon RD PATIENT NAME: Janay Cruz DATE: 12/13/2023 TIME: 9:34 AM documented in this encounterAccess Hospital [place]02-[facility] Instructions* Patient Instructions* Nataliia Ramos MD - 11/29/2023 9:03 AM EST Thank you for choosing the [facility] Department of Endocrinology, Diabetes and Metabolism. Did you know that you need to call 48 hours in advance of your scheduled visit, if you are unable to make your appointment? The [facility] [place] thanks you for your commitment, because patients not showing to their appointment results in a lost opportunity for patients to receive [facility] health care at the [facility]. To Cancel an appointment, please choose one of the following: - Call the Appointment Call Center at [phone] - From [facility], Go to Appointments - Cancel Appts If cancelling, consider your need to reschedule to prevent further delays in your care. To Schedule an appointment, please choose one of the following: - Call the Appointment Call Center at [phone] - From [facility], Go to Appointments - Request an Appt It was nice meeting you today, Janay! Please call this number to schedule: [phone] -- keep record of your food intake - it may be useful to use a website called HigherNext, whichhas numerous charts of phone apps to monitor diet, exercise, sleep and even mood. Good examples of apps to track calories are MyFITNESSPAL, LOSE IT and FOODUCATE, however choose the one that best suits you. -- for exercise, you should shoot for a goal of >150 min per week. Depending at what level you are starting, that may seem like an unachievable task. However, the best plan is to just begin to walk or bike or do another activity that you like to start and not pay attention to the time. Other strength exercises, using light weights or training bands may also be useful, especially when combined w ith regular aerobic exercise. Studies have shown that >200min per week is best to maintain weight loss. Please enroll in our SURGICAL PROGRAM. YOU NEED to register for this by going to: [email or web address] SHORT VERSION (1) enroll in our surgical program - [email or web address]. Then (2) watch a video and after the video (3) answer a few questions about your insurance, etc. This will trigger one of our staff to call you to set up appts to see the rest of our team (dietitian, psychologist and surgeon). You should receive a call within a few weeks after completion of these questions. LONG VERSION Sign up to view the online seminar. You will need to watch it (about 35min), then complete the health questionnaire. You will need to know insurance information, recent height and weight, medical diagnoses, medications you're taking, etc. It also asks several lifestyle and mental health questions. Please make sure you complete it to the best of your ability (best to do from a computer) to preventany delays in processing your information. Once this is submitted, it goes to our staff (NAVIGATION TEAM) to get you set up. They then reach out to you via the email address you registered with to give you further instructions (usually withinabout 2 weeks from submitting). SOME ADDITIONAL INFORMATION: The 3 to 6 month pre-surgery program (aka medically supervised diet) is REQUIRED BY YOUR INSURANCE (Note: some insurances do not have any requirements while others have 6 consecutive months, etc.) During the surgical process you will meet with 4 providers on the BMI team- 1) One of our Surgeons- usually a one time consultation- they will discuss medical history, and discuss what procedure would be best for you. Occasionally he/she orders testing. You will see them again at a pre-op appointment right before surgery. 2) Medical provider- will order labs to check vitamins/minerals, blood levels, and kidney/liver functions. Other tests such as an EKG, Chest xray, ultrasound, and a sleep study (if indicated) are ordered as well to make sure you are optimized for Surgery. 3) DIETITIAN- You will see a Nutrition provider as part of your medically supervised diet requirement, but you also will receive education to prepare you for surgery. (Occasionally can be scheduled with a medical provider due to availability but you will need to meet with one of the dietitians fromthe BMI team at least a couple times. 4) Psychologist- consultation includes some testing, also discussion on lifestyle risk factors, andpreparation for surgery. Depending on each patients needs, there may be more visits needed. Completion of the program requirements set forth by each of the 4 providers is necessary in order to proceed with surgery. The goal is to complete these steps during your medically supervised diet so that you are optimized by the time you meet the insurance requirement. documented in this encounterAccess [facility] [place] History of Present illness Narrative* Nataliia Ramos MD - 11/29/2023 8:40 AM EST Images from the original note were not included. [facility] CONSULT - NEW VISIT REASON OF VISIT: weight management/obesity and management of its comorbidities REFERRING PHYSICIAN: Jamal Lozano CNP Consultation requested for an opinion regarding abnormal weight gain, and my final recommendations will be communicated back to the requesting physician by way of shared medical record or letter via US mail. HISTORY OF PRESENT ILLNESS: Patient is a pleasant 28 year old female with a PMH of HTN, PCOs, insulin resistance and prediabetes Interested in gastric sleeve procedure. Patient comes today for evaluation and weight management. WEIGHT HISTORY: Weight gain has started around puberty, then with post weight retention x4 pregnancies. Previous attempt for weight loss: self directed diets and exercise: Phentermine (with 30 lbs weightloss over 3 months). Causes of Weight Gain: Family history of obesity: yes : yes Menopause: no Tobacco: yes. 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 yes Weakness: pizza and cheese cake. Number of meals per day: 2-3 Typical breakfast: skips Typical lunch: sandwich, pickles (or other snacks) Typical dinner: protein veggies and starch Tries not to snack. Tries to avoid processed food. Sugary beverages: no Type of diet: regular Portion size: average Drivers of eating habits: increased hunger and lack of satiety, stress eating. Exercise -- not consistent. 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 No flowsheet data found. No flowsheet data found. No flowsheet data found. No flowsheet data found. No flowsheet data found. No flowsheet data found. Review of Systems Constitutional: Negative for fatigue and night sweats. HENT: Negative for trouble swallowing. Eyes: Negative for visual disturbance. Respiratory: Negative for difficulty breathing. Cardiovascular: Negative for chest pain. Gastrointestinal: Negative for heartburn, nausea, vomiting, abdominal pain, diarrhea and constipation. Genitourinary: Negative for urgency. Skin: Negative for skin color change. Neurological: Negative for dizziness, headaches and numbness. Endo/Heme/Allergies: Negative for polydipsia. MEDICATIONS: No current outpatient medications on file prior to visit. No current facility-administered medications on file prior to visit. SIGNIFICANT PAST MEDICAL AND SURGICAL HISTORY: No past medical history on file. No past surgical history on file. FAMILY HISTORY: No family history on file. SOCIAL HISTORY: PHYSICAL EXAM: Janay Cruz is a 28 year old year old female who looks her stated age. Vital Signs BP 144/68 Pulse 93 Ht 160 cm (5' 3 ) Wt 91.7 kg (202 lb 2.9 oz) BMI 35.82 kg/m General: no acute distress, feeling well Neurologic: alert and oriented to time, space and place Eyes: no exophthalmia, no lig lag, extraocular movements intact. No redness. Thyroid: palpable, no thyromegaly Heart: regular rate and rhythm, no murmurs Chest: Clear to auscultation bilaterally. Abdomen: no pain on palpation. Gait: is preserved. Balance is preserved Ext: no cyanosis, no clubbing, no edema. Skin: no dermopathy Psychiatry: normal affect PERTINENT LABORATORY AND IMAGING: All pertinent laboratory results were reviewed. Please see HPI for further details. IMPRESSION/PLAN: Encounter Diagnosis ICD-10-CM 1. Class 2 severe obesity with serious comorbidity and body mass index (BMI) of 35.0 to 35.9 in adult, unspecified obesity type (HCC) E66.01 [facility] Z68.35 Patient comes today for evaluation and weight management and its comorbidities. Patient has a BMI of 35.82 OBESITY CLASS II. Patient tried different weight loss modalities in the past including self directed diets and exercise, Phentermine. Pertinent comorbidities include HTN, PCOs, insulin resistance and prediabetes . Patient quality of life is compromised due to current weight and patient is mot ivated for weight loss. The main risk factors for current weight include genetic factors, increasedconsumption of high calorie/process foods, irregular eating patterns, suboptimal physical activity and post weight retention. Our goal is to treat obesity to decrease long-term medical complications, comorbidities and improve lifestyle. I discussed with the patient the possibility of starting an interdisciplinary lifestyle intervention-weight loss program involving improvement of the diet,a personalized exercise program and also consider the possibility of using medications to control patient appetite in order to help patient to lose weight. Patient is in agreement. Plan -- Reviewed principles of energy metabolism, caloric intake and expenditure -- Goals: -- 5-10% weight loss over 6 months is reasonable -- At least 6-month commitment to losing weight -- Lifestyle changes -- Changing eating, sleeping and behavior habits -- Diet -- Discussed with patient protein first, starch last meal plan. Discussed improving protein intake. -- portion control -- behavior changes -- Appetite control: -- I have also reviewed with the patient the possibility of using weight loss medications in an effort to reduce appetite. -- I have reviewed the different therapeutic options available including phentermine, phentermine/topiramate, buproprion/naltrexone, and liraglutide -- Exercise -- discussed basic exercise recommendations, the role of exercise on weight loss and maintenance. Discussed the combination of aerobic and resistance exercise. -- Sleep: -- discussed the importance of sleep hygiene -- Stress: -- discussed the effect of stress and its relationship with weight gain. Stress management is very important -- Weight Loss medication consideration: -- Patient is not interested in chronic use of AOM for obesity management. -- Bariatric consideration: -- Interested in gastric sleeve procedure -- Referral to BMI -- Patient was provided with information to sign up for the surgical program. -- Follow up: -- in -- Other pertinent medical comorbidities -- HTN, PCOs, insulin resistance and prediabetes Nataliia Ramos MD Endocrinology and Metabolism [facility] I spent a total of 40 minutes on the date of the service which included preparing to see the patient, [id number] patient care, completing clinical documentation, obtaining and/or reviewing separately obtained history, performing a medically appropriate examination, counseling and educating the pat ient/family/caregiver, and ordering medications, tests, or procedures. [facility] [place] Progress note Author Mary Jo Browne [facility] May 07, 2022 7:55am Note Date/Time May 07, 2022 7:41 am [facility] [address] [place] [address] ANIMAL HEALTH TECHNICIAN Progress Note Signed Patient: Janay Cruz MR#: [id number] : 1995 Acct:[id number] Age/Sex: 26 / F Adm Date: 2 Loc: 3S Room: [address] [place] [address] Type : ADM IN Attending Dr: Fely Wood DO Copies to: ~ Date of Service: 05/07/2022 OB - PN: Subj Subjective Post Delivery Day #: Day 2 Patient comments: no complaints and pain well controlled baby status: doing well Driscoll feeding status: exclusively bottle feeding OB - [...] and follow up 6 weeks Documented By: Mary Jo Browne DO 05/07/22 0739 Signed By: <Electronically signed by Mary Jo Browne DO> 05/07/22 0755 [facility] Work Phone: 1(563) 846-376107-23-2022 Progress note Author Aakash Cavazos [facility] May 06, 2022 9:56am Note Date/Time May 06, 2022 9:56 am [facility] [address] [place] [address] ANIMAL HEALTH TECHNICIAN Progress Note Signed Patient: Janay Cruz MR#: [id number] : 1995 Acct:[id number] Age/Sex: 26 / F Adm Date: 2 Loc: Room: [address] [place] [address] Type : ADM IN Attending Dr: Fely Wood DO Copies to: ~ Date of Service: 05/06/2022 OB - PN: Subj Subjective Post Delivery Day #: Day 1 Patient comments: no complaints and pain well controlled Driscoll baby status: doing well feeding status: exclusively [...] <Electronically signed by BHAVYA Cavazos> 05/06/22 0956 [facility] Work Phone: 1(409) 714-981007-22-2022 [facility] Clinical Note Date No Information [facility] Work Phone: Discharge summary* Clinical Note Date No Information [facility] Work Phone: Evaluation noteNo assessment information available [facility] Work Phone: Evaluation note* Diagnosis Class 2 severe obesity with serious comorbidity and body mass index (BMI) of 35.0 to 35.9 in adult, unspecified obesity type (HCC)- Primary documented in this encounter [facility] note* Diagnosis Obesity, Class II, BMI 35-39.9- Primary Obesity, unspecified Dietary counseling and surveillance Dietary surveillance and counseling documented in this encounter [facility] note* Diagnosis Obesity, Class II, BMI 35-39.9- Primary Obesity, unspecified documented in this encounter [facility] note* Diagnosis Class 2 severe obesity with serious comorbidity and body mass index (BMI) of 37.0 to 37.9 in adult, unspecified obesity type (HCC) [facility]* Diagnosis Class 2 severe obesity with serious comorbidity and body mass index (BMI) of 37.0 to 37.9 in adult, unspecified obesity type (HCC) [facility]* Diagnosis Obesity (BMI 30-39.9)- Primary Insulin resistance Other abnormal glucose Low HDL (under 40) (CMS/HCC) [facility] Diagnosis Morbid obesity (HCC)- Primary Morbid obesity [facility]* Diagnosis Morbid obesity (HCC)- Primary Morbid obesity [facility]* Diagnosis Class 2 severe obesity with serious comorbidity and body mass index (BMI) of 37.0 to 37.9 in adult, unspecified obesity type (HCC)- Primary Encounter for other preprocedural examination Unspecified essential hypertension Fatty liver Other chronic nonalcoholic liver disease Dyslipidemia Other and unspecified hyperlipidemia Prediabetes Other abnormal glucose [facility]* Diagnosis Obesity, Class II, BMI 35-39.9- Primary Obesity, unspecified Dietary counseling and surveillance Dietary surveillance and counseling documented in this encounter [facility] note* Diagnosis Encounter for other preprocedural examination [facility]* Diagnosis Obesity, Class II, BMI 35-39.9- Primary Obesity, unspecified Dietary counseling and surveillance Dietary surveillance and counseling documented in this encounter [facility] note* Diagnosis Morbid obesity due to excess calories (HCC)- Primary documented in this encounter [facility] note* Type Assessment Date No Information [facility] Work Phone: Evaluation note* Diagnosis Skin tag Unspecified hypertrophic and atrophic condition of skin Exposure to STD Vaginal discharge Leukorrhea, not specified as infective Hymenal remnant [facility]* Diagnosis Obesity, Class II, BMI 35-39.9- Primary Obesity, unspecified Pre-op testing Preoperative examination, unspecified Morbid obesity due to excess calories (HCC) Morbid obesity due to excess calories (HCC) [facility]* Diagnosis Obesity, Class II, BMI 35-39.9- Primary Obesity, unspecified Dietary counseling and surveillance Dietary surveillance and counseling Morbid obesity due to excess calories (HCC) documented in this encounter [facility] note* Diagnosis Pre-op examination- Primary Preoperative examination, unspecified Hypertension, unspecified type PCOS (polycystic ovarian syndrome) Polycystic ovaries Anxiety disorder, unspecified type Obesity, Class II, BMI 35-39.9 Obesity, unspecified Morbid obesity due to excess calories (HCC) * Assessment & Plan Note - Lotus Calles APRN.CNP - 06/26/2025 2:05 PM EDT Associated Problem(s): Obesity, Class II, BMI 35-39.9 Assessment: Body mass index is 37.09 kg/m . * Assessment & Plan Note - Lotus Calles APRN.CNP - 06/26/2025 2:05 PM EDT Associated Problem(s): Anxiety disorder, unspecified Assessment: denies panic in hospital setting * Assessment & Plan Note - Lotus Calles APRN.CNP - 06/26/2025 2:05 PM EDT Associated Problem(s): PCOS (polycystic ovarian syndrome) Assessment: stable, not currently on medication * Assessment & Plan Note - Lotus Calles APRN.CNP - 06/26/2025 2:05 PM EDT Associated Problem(s): High blood pressure Assessment: stable, asymptomatic Last 5 Encounter BP Readings: Date: BP: 06/26/2025 109/73 06/23/2025 146/79 01/21/2025 145/78 11/29/2023 144/68 documented in this encounter [facility] note* Diagnosis Pre-op examination Dyspareunia in female Hymenal remnant [facility] Clinical Note Date No Information [facility] Work Phone: History of Past illness Narrative* Condition Effective Dates (start - stop) O utcome No Information [facility] Work Phone: History of Present illness Narrative* Encounter Date Complaint History Of Prese nt Illness No Information [facility] Work Phone: Instructions* Date Instruction Additional Infor mation No Information [facility] Work Phone: Progress note* Clinical Note Date No Information [facility] Work Phone: Reason for referral (narrative)* Outpatient Procedure (Routine) - Pending Review Specialty Diagnoses / Procedures Referred By Renny grant Referred To Contact [facility] Diagnoses Obesity, Class II, BMI 35-39.9 Procedures EGD DIAGNOSTIC ESOPHAGOGASTRODUODENOSC [place]Y [place] [address] [place] [address] [facility] [address] [place] [address] Referral ID Status Reason Start Date Expiration Date Visits Requested Visits Authorized [id number] Pending Review Auto-Generat ed Referral 12/21/2023 12/19/2024 1 1 [facility] for referral (narrative)* Reason For Referral No Information [facility] Work Phone: Reason for visit Narrative* Diagnostic Procedure Only (Routine) - Closed Specialty Diagnoses / Procedures Referred By Renny grant Referred To Contact [facility] Diagnoses Class 2 severe obesity with serious comorbidity and body mass index (BMI) of 37.0 to 37.9 in adult, unspecified obesity type (HCC) Procedures US ABD RIGHT UPPER QUADRANT US ABDOMINAL REAL TIME W/IMAGE LIMITED Karlene Wise, SUSTAINABILITY PROJECT COORDINATOR.SERVICE STATION OPERATOR [address] [place] [id number] [facility] [place] [address] Referral ID Status Reason Start Date Expiration Date V isits Requested Visits Authorized [id number] Closed Auto-Generate d Referral 01/11/2024 02/09/2025 1 1 [facility] Narrative - Reported* System Pos/Neg Findings No Information [facility] Work Phone: Summary Purpose Family History No Family History Records Found Relationship Condition Age at Onset Recorded Date/T stephenie Not Specified Diabetes mellitus Unknown Celiac disease Unknown Family Member Type Diagnosis Age At Onset No Information Advance Directives No Advanced Directives Records FoundDocuments on File Type Date Recorded Patient Acquisitions Assistant Expl anation ACP-Advance Directive ACP-Power of Acting Professor Latest Code Status on File Code Status Date Activated Date Inactivated Comments Full Code 03/19/2016 7:03 AM 03/20/2016 6:59 PM Full Code 03/19/2016 2:08 AM 03/19/2016 7:03 AM Full Code 03/18/2016 10:16 AM 03/19/2016 2:08 AM Documents on File Type Date Recorded Patient Acquisitions Assistant Expl anation ACP-Advance Directive ACP-Power of Acting Professor Latest Code Status on File Code Status Date Activated Date Inactivated Comments Full Code 01/13/2021 5:28 PM Full Code 01/12/2021 7:33 PM 01/13/2021 5:27 PM Full Code 03/19/2016 7:03 AM 03/20/2016 6:59 PM Full Code 03/19/2016 2:08 AM 03/19/2016 7:03 AM Full Code 03/18/2016 10:16 AM 03/19/2016 2:08 AM Advance Directive Response Recorded Date/ Time Advance Directives No May 02 7:31pm Directive Yes / No Effective Date File Name No Information Reason for Referral Status Reason Specialty Diagnoses / Procedures Referre d By Contact Referred To Contact Closed Radiology Diagnoses test positive Amenorrhea Procedures US OB LESS THAN 14 WEEKS SINGLE OR FIRST GESTATION Gerri Salmeron MD [address] [place] [address] Status Reason Specialty Diagnoses / Procedures Referre d By Contact Referred To Contact Closed Radiology Diagnoses Encounter for supervision of other normal in second trimester 15 weeks gestation of Procedures US OB 14 PLUS WEEKS SINGLE OR FIRST GESTATION Gerri Salmeron MD [address] [place] [address] Status Reason Specialty Diagnoses / Procedures Referre d By Contact Referred To Contact Open Radiology Diagnoses Encounter for supervision of other normal in second trimester 25 weeks gestation of Procedures US OB TRANSVAGINAL Gerri Salmeron MD [address] [place] [address] Status Reason Specialty Diagnoses / Procedures Referred By Contact Referred To Contact Pending Review Radiology Diagnoses Encounter for supervision of other normal in second trimester 25 weeks gestation of Procedures US OB 1 OR MORE FETUS LIMITED Gerri Salmeron MD [address] [place] [address] Specialty Diagnoses / Procedures Referred By Contac t Referred To Contact Diagnoses Class 2 severe obesity with serious comorbidity and body mass index (BMI) of 35.0 to 35.9 in adult, unspecified obesity type (HCC) Procedures [facility] OFFICE/OUTPATIENT [facility] 60 MINUTES Nataliia Ramos MD [address] [place] [address] Referral ID Status Reason Start Date Expiration Date Visits Requested Visits Authorized [id number] Authorized PCP Requested Referral 11/29/2023 11/28/2024 1 1 Assessments Diagnosis test positive examination or test, [...] the patient's : Anthony, Baby Girl Janay [[id number]] female Weight: 7 lb 12 oz (3.515 [...] be sent through Care Everywhere. * Care ([place]) * OB CORONAVIRUS (COVID-19): , AND BABY CARE DISCHARGE INSTRUCTIONS documented in this encounter History of Present Illness * Vickie Singletary, DO - 01/13/2021 1:33 PM EDT Images from the original note were not included. Patient Name: Janay Cruz Patient : 1995 Room/Bed: [facility]30323-01 Admission Date/Time: 01/12/2021 7:25 PM Date: 01/13/2021 Time: 1:33 PM Janay Cruz is a 25 y.o. female OB History [...] sherif external monitoring Membranes Are: AROM light mec Scalp Electrode in place: No Intrauterine Pressure [...] POSITION: mid POSITION: Cephalic, Assessment: 1. Janay Cruz is a 25 y.o. female 39w2d 2. [...] section and content) DATE CREATED AUTHOR 07/30/[address] [facility] Healthcare DATE CREATED AUTHOR AUTHOR'S ORGANIZ ATION 09/15/2018 [facility] DATE CREATED AUTHOR AUTHOR'S ORGANIZ ATION 01/05/2021 [facility] [place] DATE CREATED AUTHOR AUTHOR'S ORGANIZ ATION [facility]/2021 [facility] DATE CREATED AUTHOR AUTHOR'S ORGANIZ ATION 02/18/2022 [facility] dical Specialist DATE CREATED AUTHOR AUTHOR'S ORGANIZ ATION 12/15/2022 [facility] DATE CREATED AUTHOR AUTHOR'S ORGANIZ ATION 07/22/2023 [facility] DATE CREATED AUTHOR AUTHOR'S ORGANIZ ATION 02/08/2025 [facility] DATE CREATED AUTHOR AUTHOR'S ORGANIZ ATION 05/09/2025 [facility] DATE CREATED AUTHOR AUTHOR'S ORGANIZ ATION 07/03/2025 [facility] DATE CREATED AUTHOR AUTHOR'S ORGANIZ ATION 07/09/2025 [facility] dical Specialists EPIC DATE CREATED AUTHOR AUTHOR'S ORGANIZ ATION 07/20/2025 [facility] Source Comments (unrecognize d section and content) In the event this informatio n is protected by the Federal Confidentiality of Alcohol and Drug Abuse Patient Records regulations: The Federal rules restrict any use of the information to criminally investigate or prosecute any alcohol or drug abuse patient.[facility] the event this information is protected by the Federal Confidentiality of Alcohol and Drug Abuse Patient Records regulations: The Federal rules restrict any use of the information to criminally investigate or prosecute any alcohol or drug abuse patient.[facility] the event this information is protected by the Federal Confidentiality of Alcohol and Drug Abuse Patient Records regulations: The Federal rules restrict any use of the information to criminally investigate or prosecute any alcohol or drug abuse patient.[facility] the event this information is protected by the Federal Confidentiality of Alcohol and Drug Abuse Patient Records regulations: The Federal rules restrict any use of the information to criminally investigate or prosecute any alcohol or drug abuse patient.[facility] the event this information is protected by the Federal Confidentiality of Alcohol and Drug Abuse Patient Records regulations: The Federal rules restrict any use of the information to criminally investigate or prosecute any alcohol or drug abuse patient.[facility] the event this information is protected by the Federal Confidentiality of Alcohol and Drug Abuse Patient Records regulations: The Federal rules restrict any use of the information to criminally investigate or prosecute any alcohol or drug abuse patient.[facility] the event this information is protected by the Federal Confidentiality of Alcohol and Drug Abuse Patient Records regulations: The Federal rules restrict any use of the information to criminally investigate or prosecute any alcohol or drug abuse patient.[facility] the event this information is protected by the Federal Confidentiality of Alcohol and Drug Abuse Patient Records regulations: The Federal rules restrict any use of the information to criminally investigate or prosecute any alcohol or drug abuse patient.[facility] the event this information is protected by the Federal Confidentiality of Alcohol and Drug Abuse Patient Records regulations: The Federal rules restrict any use of the information to criminally investigate or prosecute any alcohol or drug abuse patient.[facility] the event this information is protected by the Federal Confidentiality of Alcohol and Drug Abuse Patient Records regulations: The Federal rules restrict any use of the information to criminally investigate or prosecute any alcohol or drug abuse patient.[facility] Dayton[facility] the event this information is protected by the Federal Confidentiality of Alcohol and Drug Abuse Patient Records regulations: The Federal rules restrict any use of the information to criminally investigate or prosecute any alcohol or drug abuse patient.[facility] the event this information is protected by the Federal Confidentiality of Alcohol and Drug Abuse Patient Records regulations: The Federal rules restrict any use of the information to criminally investigate or prosecute any alcohol or drug abuse patient.[facility] the event this information is protected by the Federal Confidentiality of Alcohol and Drug Abuse Patient Records regulations: The Federal rules restrict any use of the information to criminally investigate or prosecute any alcohol or drug abuse patient.[facility] Dayton[facility] the event this information is protected by the Federal Confidentiality of Alcohol and Drug Abuse Patient Records regulations: The Federal rules restrict any use of the information to criminally investigate or prosecute any alcohol or drug abuse patient.[facility] Dayton[facility] the event this information is protected by the Federal Confidentiality of Alcohol and Drug Abuse Patient Records regulations: The Federal rules restrict any use of the information to criminally investigate or prosecute any alcohol or drug abuse patient.[facility] DaytonIn the event this information is protected by the Federal Confidentiality of Alcohol and Drug Abuse Patient Records regulations: The Federal rules restrict any use of the information to criminally investigate or prosecute any alcohol or drug abuse patient.[facility] DaytonIn the event this information is protected by the Federal Confidentiality of Alcohol and Drug Abuse Patient Records regulations: The Federal rules restrict any use of the information to criminally investigate or prosecute any alcohol or drug abuse patient.[facility] DaytonIn the event this information is protected by the Federal Confidentiality of Alcohol and Drug Abuse Patient Records regulations: The Federal rules restrict any use of the information to criminally investigate or prosecute any alcohol or drug abuse patient.[facility] DaytonIn the event this information is protected by the Federal Confidentiality of Alcohol and Drug Abuse Patient Records regulations: The Federal rules restrict any use of the information to criminally investigate or prosecute any alcohol or drug abuse patient.[facility] DaytonIn the event this information is protected by the Federal Confidentiality of Alcohol and Drug Abuse Patient Records regulations: The Federal rules restrict any use of the information to criminally investigate or prosecute any alcohol or drug abuse patient.[facility] DaytonIn the event this information is protected by the Federal Confidentiality of Alcohol and Drug Abuse Patient Records regulations: The Federal rules restrict any use of the information to criminally investigate or prosecute any alcohol or drug abuse patient.[facility] DaytonIn the event this information is protected by the Federal Confidentiality of Alcohol and Drug Abuse Patient Records regulations: The Federal rules restrict any use of the information to criminally investigate or prosecute any alcohol or drug abuse patient.[facility] DaytonIn the event this information is protected by the Federal Confidentiality of Alcohol and Drug Abuse Patient Records regulations: The Federal rules restrict any use of the information to criminally investigate or prosecute any alcohol or drug abuse patient.[facility] Reason for Visit (unrecogniz ed section and content) Status Reason Specialty Diagnoses / Procedures Referre d By Contact Referred To Contact Closed Radiology Diagnoses test positive Amenorrhea Procedures US OB LESS THAN 14 WEEKS SINGLE OR FIRST GESTATION Gerri Salmeron MD [address] [place] [address] Status Reason Specialty Diagnoses / Procedures Referre d By Contact Referred To Contact Closed Radiology Diagnoses Encounter for supervision of other normal in second trimester 15 weeks gestation of Procedures US OB 14 PLUS WEEKS SINGLE OR FIRST GESTATION Gerri Salmeron MD [address] [place] [address] Status Reason Specialty Diagnoses / Procedures Referred By Contact Referred To Contact Pending Review Radiology Diagnoses Encounter for supervision of other normal in second trimester 25 weeks gestation of Procedures US OB 1 OR MORE FETUS LIMITED Gerri Salmeron MD [address] [place] [address] Reason Comments Scheduled Induction Status Reason Specialty Diagnoses / Procedures Referre d By Contact Referred To Contact Diagnoses Term Gerri Salmeron MD [address] [place] [address] [facility] Reason Comments Medical Weight Management Reason Comments Patient Education Assessment Reason Comments New Patient Reason Comments [facility] Reason Comments Research Reason Comments Established Patient Reason Comments Weight Loss Surgery Red/ Malcolm/0 Diet /UHC Reason Comments Patient Education Reassessment Reason Comments Nurse Visit Specialty Diagnoses / Procedures Referred By Contac t Referred To Contact [facility] Diagnoses Encounter for other preprocedural examination Procedures ECG COMPLETE ECG ROUTINE ECG W/LEAST 12 LDS W/I&R Shankar Britt MD [address] [place] [address] Phone: tel: fax: [facility] [place] [address] [place] [address] Referral ID Status Reason Start Date Expiration Date V isits Requested Visits Authorized [id number] Closed Auto-Generate d Referral 01/21/2025 01/21/2026 1 1 Reason Comments Patient Question Reason Comments Insurance Authorization Reason Comments Gage Maker - Other Returning Patient's Call Reason Comments Scheduling Surgery Gage Maker - Other Reason Comments Pre-Op Visit Pre-Op LRYGB, DOS Reason Comments Reassessment Patient Education Reason Comments Pre-Op Visit Reason Comments Pre-op Visit Ordered Prescriptions (unrec ognized section and content) [...] content) Team Status: Inactive Member Role Status Dates Services [facility] Primary Care Provider Active Yumiko Brown DO Attending Provider Active Team Status: Inactive Member Role Status Dates Services [facility] Primary Care Provider Active Fely Wood DO Admit Provider, Attending Provid er Active Team Status: Active Member Role Status [facility] Primary Care Provider Active Vocational Training Director Relationship Specialty Start Date End Date Jamal Lozano CNP [address] [place] [address] Referring Internal Medicine 11/05/23 Vocational Training Director Relationship Specialty Start Date End Date Jamal Lozano CNP [address] [place] [address] Referring Internal Medicine 11/05/23 Vocational Training Director Relationship Specialty Start Date End Date Jamal Lozano CNP [address] [place] [address] Referring Internal Medicine 11/05/23 Vocational Training Director Relationship Specialty Start Date End Date Jamal Lozano CNP [address] [place] [address] Referring Internal Medicine 11/05/23 Vocational Training Director Relationship Specialty Start Date End Date Jamal Lozano CNP [address] [place] [address] Referring Internal Medicine 11/05/23 Vocational Training Director Relationship Specialty Start Date End Date Raleigh Cleary DO [address] [place] [address] PCP - [facility] 04/14/24 Bernardo Londono DO [address] [place] [address] PCP - General Family Medicine 12/22/24 Vocational Training Director Relationship Specialty Start Date End Date , .SERVICE STATION OPERATOR [address] [place] [address] Referring Internal Medicine 11/05/23 Vocational Training Director Relationship Specialty Start Date End Date , .SERVICE STATION OPERATOR [address] [place] [address] Referring Internal Medicine 11/05/23 Vocational Training Director Relationship Specialty Start Date End Date , .SERVICE STATION OPERATOR [address] [place] [address] Referring Internal Medicine 11/05/23 Vocational Training Director Relationship Specialty Start Date End Date , .SERVICE STATION OPERATOR [address] [place] [address] Referring Internal Medicine 11/05/23 Vocational Training Director Relationship Specialty Start Date End Date , .SERVICE STATION OPERATOR [address] [place] [address] Referring Internal Medicine 11/05/23 Vocational Training Director Relationship Specialty Start Date End Date , .SERVICE STATION OPERATOR [address] [place] [address] Referring Internal Medicine 11/05/23 Vocational Training Director Relationship Specialty Start Date End Date , .SERVICE STATION OPERATOR [address] [place] [address] Referring Internal Medicine 11/05/23 Vocational Training Director Relationship Specialty Start Date End Date Jamal Lozano SUSTAINABILITY PROJECT COORDINATOR.SERVICE STATION OPERATOR Referring Internal Medicine 11/05/23 Vocational Training Director Relationship Specialty Start Date End Date Jamal Lozano SUSTAINABILITY PROJECT COORDINATOR.SERVICE STATION OPERATOR Referring Internal Medicine 11/05/23 Name Effective Dates (start - stop) Status Members No Information Vocational Training Director Relationship Specialty Start Date End Date Raleigh Cleary DO [address] [place] [address] PCP - [facility] 04/14/24 Bernardo Londono, [address] [place] [address] PCP - General Family Medicine 12/22/24 Vocational Training Director Relationship Specialty Start Date End Date Raleigh Cleary DO [address] [place] [address] PCP - [facility] 04/14/24 Bernardo Londono DO [address] [place] [address] PCP - General Family Medicine 12/22/24 Vocational Training Director Relationship Specialty Start Date End Date Jamal Lozano, SUSTAINABILITY PROJECT COORDINATOR.SERVICE STATION OPERATOR Referring Internal Medicine 11/05/23 Vocational Training Director Relationship Specialty Start Date End Date Jamal Lozano, SUSTAINABILITY PROJECT COORDINATOR.SERVICE STATION OPERATOR Referring Internal Medicine 11/05/23 Vocational Training Director Relationship Specialty Start Date End Date Jamal Lozano, .SERVICE STATION OPERATOR Referring Internal Medicine 11/05/23 Vocational Training Director Relationship Specialty Start Date End Date Jamal Lozano, SUSTAINABILITY PROJECT COORDINATOR.SERVICE STATION OPERATOR Referring Internal Medicine 11/05/23 Vocational Training Director Relationship Specialty Start Date End Date Jamal Lozano, SUSTAINABILITY PROJECT COORDINATOR.SERVICE STATION OPERATOR Referring Internal Medicine 11/05/[address] [place], [place] [id number] Registered Dietitian Nutrition 06/24/25 Vocational Training Director Relationship Specialty Start Date End Date Jamal Lozano, .SERVICE STATION OPERATOR Referring Internal Medicine 11/05/[address] [place] [address] Registered Dietitian Nutrition 06/24/25 Vocational Training Director Relationship Specialty Start Date End Date Raleigh Cleary DO [address] [place] [address] PCP - [facility] 04/14/24 Bernardo Londono DO [address] [place] [address] PCP - General Family Medicine 12/22/24 FOR RECORDS PERTAINING TO PATIENTS WHO ARE [...] BE BASED ON THE PRIMARY CLINICAL RECORDS. [email or web address] [facility]. provides no warranty or guarantee of the accuracy or completeness of information in this document.
== END 2025-07-27 10:09 | disposition home or self-care (01) ==
PROVIDERS: Visit Provider Obstetrics & Gynecology
DX: Z01.810 Encounter for preprocedural cardiovascular examination (principal); N89.8 Other specified noninflammatory disorders of vagina; N94.10 Unspecified dyspareunia
CPT/HCPCS: 93005

== ENCOUNTER 2025-08-07 07:39 | Day surgery (SDC) | payer OTHER, SELFPAY ==
--- OUTSIDE RECORDS SUMMARY | 2025-05-08 06:24 | XMS_ITS | Continuity of Care Document ---
Author Organization [facility] Address [address] [place] [address] Phone Care Team Providers Care Aircraft Manager Name Role Phone Karon Godoy DDS Unavailable Unavailable Allergies, Adverse Reactions, Alerts Substance Reaction Status Criticality No Known Allergies Active No Inform ation Medications Medication Instructions Dosage Effective Dates (start - stop) Status Comments spironolactone 25 mg tablet take 1 tablet by oral route every day 25 MG - Active Adipex-P 37.5 mg tablet take 1 tablet by oral route every day before breakfast 37.5 MG - Active amoxicillin 500 mg capsule take 1 capsule by oral route every 8 hours 500 MG - No Longer Active Procedures Procedure Date Oral Hygiene Instruction Extract; Erupted Th/exposted Rt 025 Bitewig-single Film Intraoral-periapical 1st Film Oral Hygiene Instruction Limited Oral Eval Intraoral-periapical 1st Film 4 Bitewig-single Film Oral Hygiene Instruction Limited Oral Eval Bitewig-single Film Intraoral-periapical 1st Film 3 Limited Oral Eval High Risk Oral Hygiene Instruction Comp Oral Eval New/estab Patient 2021 Advance Directives Directive Yes / No Effective Date File Name No Information Encounters Encounter Description Practice Location Reason(s) For Visit Diagnoses Date Provider Providers Copied on Encounter [facility], [address] [place] [address], [id number], [place] tel:[phone] Dental Clinic ext (chief complaint) No Information Jayne DDS Karon. . tel:[phone] [facility], [address] [place] [address], [id number], [place] tel:[phone] Dental Clinic Encounter for screening for dental disorders Jayne DDS Karon. . tel:[phone] [facility], [address] [place] [address], [id number], [place] tel:[phone] Dental Clinic DL (chief complaint) Encounter for screening for dental disorders Jayne DDS Karon. . tel:[phone] [facility], [address] [place] [address], [id number], [place] tel:[phone] Dental Clinic DL (chief complaint) Body mass index [BMI] 35.0-35.9, adultEncounter for screening for dental disorders Jayne DDS Karon. . tel:[phone] [facility], [address] [place] [address], [id number], [place] tel:[phone] Dental Clinic dl (chief complaint) Encounter for screening for dental disorders Abdirizak S Carlin. [address] [place] [address], [id number], [place]. tel:[phone] [facility], [address] [place] [address], [id number], [place] tel:[phone] Dental Clinic DN (chief complaint) Encounter for screening for dental disorders Jayne DDS Karon. . tel:[phone] Family History Family Member Type Diagnosis Age At Onset No Information Payers Payer name Insurance type Covered democrat ID Alli zayas(s) D [facility] Medicaid [facility] [id number] D Medicaid [facility] [id number] Social History Type Description Quantity Date Captured Comments Alcohol Use Details Unknown Caffeine Use Details Unknown Tobacco Use Status No Information Smoking Status No Information Sex Female Sexual Orientation Straight or heterosexual Gender Identity Female Chief Complaint And Reason For Visit From encounter dated '05/08/2025 10:24'. ext (chief complaint). Description: ext Reason For Referral Reason For Referral No Information Plan Of Treatment Date Type Action Status Goal RLP. Due on due Goal Depression screening. Due on due Goal Unhealthy drug use screening . Due on due Goal Tdap Vaccine. Due on 2024 due Goal PRAPARE ASSESSMENT. Due on due Goal Hepatitis C screening. Due o n due Goal Influenza vaccine. Due on due Goal Tdap. Due on due Goal HPV. Due on due Goal Unhealthy drug use screening . Due on due Goal PRAPARE ASSESSMENT. Due on due Goal Depression screening. Due on due Goal RLP. Due on due Goal HPV. Due on due Goal Tdap Vaccine. Due on 2024 due Goal Influenza vaccine. Due on due Goal Tdap. Due on due Goal Hepatitis C screening. Due o n due Goal Hep A. Due on du e Goal Influenza vaccine. Due on Ma due Goal HPV. Due on due Goal Hepatitis C screening. Due o n due Goal Tdap Vaccine. Due on 2023 due Goal RLP. Due on due Goal Unhealthy drug use screening . Due on due Goal Depression screening. Due on due Goal PRAPARE ASSESSMENT. Due on M due Goal Tdap. Due on due Goal Dietary management education , guidance, and counseling completed Goal PRAPARE ASSESSMENT. Due on M due Goal RLP. Due on due Goal Depression screening. Due on due Goal Tdap Vaccine. Due on 2022 due Goal Tdap. Due on due Goal Influenza vaccine. Due on Ma r due Goal PAP. Due on due Goal Depression screening. Due on due Goal RLP. Due on due Goal PRAPARE ASSESSMENT. Due on N due Goal PAP. Due on due Goal Influenza vaccine. Due on No due Goal Tdap. Due on due History Of Present Illness Encounter Date Complaint History Of Prese nt Illness ext ext DL DL DL DL dl dl DN Functional Status Date Functional Assessmen t No Information Instructions Date Instruction Additional Infor ashish Dietary management e ducation, guidance, and counseling Related to Body mass index [BMI] 35.0-35.9, adult Giving encouragement to exercise Related to Body mass index [BMI] 35.0-35.9, adult Assessments Type Assessment Date No Information Patient Care Teams Name Effective Dates (start - stop) Status Members No Information
[2025-07-27 10:43] VITALS: BP 114/73; PULSE 52; TEMP 36.3; O2SAT 97; BMI 35.4
--- OUTSIDE RECORDS SUMMARY | 2025-08-07 07:43 | XMS_ITS | Encounter Summary ---
Author Organization [facility] Address [address] [place] [address] Care Team Providers Care Monitoring Tech Name Role Phone Raleigh Cleary DO Unavailable [phone] Bernardo Londono DO Primary Care Provider [phone] Encounter Details DateTypeDepartmentCare Team (Latest Contact Info)Mbstevyruxp25/13/2025linisync Result Encounter [facility] Unsolicited Smith Shafer DO [address] [place], [place] [id number] Social History Tobacco UseTypesPacks/DayYears UsedDateSmoking Tobacco: FormerCigarettesQuit: 10/15/2019Smokeless Tobacco: NeverAlcohol UseStandard Drinks/WeekCommentsNot Currently0 (1 standard drink = 0.6 oz pure alcohol)Caffeine intake: 1- c green teaAUDIT-CAnswerDate RecordedQ1: How often do you have a drink containing alcohol?Never12/22/2024Q2: How many drinks containing alcohol do you have on a typical day when you are drinking?Patient does not drink12/22/2024Q3: How often do you have six or more drinks on one occasion?Never12/22/2024EducationAnswer Date RecordedWhat is the highest level of school you have completed or the highest degree you have received?High school nonxdiju52/05/2023Comments NoSex and Gender InformationValueDate RecordedSex Assigned at BirthNot on file Legal XwpVqqrwr16/15/2023 11:23 PM EDTGender IdentityNot on fileSexual OrientationNot on filedocumented as of this encounter Plan of Treatment DateTypeDepartmentCare Team (Latest Contact Info)Yjbgibyyfxx06/06/2025 2:30 PM ESTOffice Visit [facility] [place] [facility] [address] [address] Belinda Douglas PA [address] [place], [place] [id number] documented as of this encounter Procedures Procedure NamePriorityDate/TimeAssociated DiagnosisCommentsECG 12-LEAD07/27/2025 8:43 AM EDT documented in this encounter Results * ECG 12-LEAD (07/27/2025 8:43 AM EDT)Anatomical RegionLateralityModalityOther Specimen (Source)Anatomical Location / LateralityCollection Method / Volume Collection TimeReceived Time07/27/2025 8:43 AM EDT Narrative 07/27/2025 12:57 PM EDT [facility] ?[address] ? [place] [address] ? Electrocardiograph Report ? Signed ? Patient: JANAY CRUZ ?MR#: [id number] ?? : 1995 ?Acct:[id number] ?? Age/Sex: 30 / F ?ADM Date: 07/27/25 ?? Loc: PST ? Attending Dr: Smith Shafer D.O. ? Ordering Physician: Smith Shafer D.O. ?? Date of Service: 07/27/25 ?? Procedure(s): ECG 12 lead ?? Accession Number(s): [id number] ? cc: ?[facility] ? Test Date: ?2025-07-27 ?? Pat Name: ? JANAY CRUZ ? Department: ? Room: ? - ?? Gender: ? Female ? 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 : ?1995 ? Requested By: SMITH TAISHA ?? Order Number: [id number] ?Reading MD: ?? LIDA ??Jaret ARECHIGA ? Measurements ?? Intervals ?[place] ? Rate: ? 51 ? P: ?43 ?? AK: ? 147 ?QRS: ?0 ?? QRSD: ? 92 ? T: ?0 ?? QT: ? 425 ? QTc: ?394 ? Interpretive Statements ?? SINUS BRADYCARDIA ?? Borderline ECG ?? No previous ECG available for comparison ?? Electronically Signed On 07-27-2025 12:57:32 EDT by LIDA ??Jaret ARECHIGA ? Dictated By: ?LIDA ARECHIGA ? Signed By: ?07/27/25 1257 ? DD/ 0843 ? TD/TT: ? Brick Chimney Builder: Procedure Note Radiology, Radiologist, MD - 07/27/2025 [facility] [place] [id number] Electrocardiograph Report Signed Patient: JANAY CRUZ MMR#: [id number] : 1995Acct:[id number] Age/Sex: 30 / FADM Date: 07/27/25 Loc: [facility] Attending Dr: Smith Shafer D.O. Ordering Physician: Smith Shafer D.O. 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 Measurements Intervals [place] Rate: 51 P: 43 AK: 147 QRS: 0 QRSD: 92 T: 0 QT: 425 QTc: 394 Interpretive Statements SINUS BRADYCARDIA Borderline ECG No previous ECG available for comparison Electronically Signed On 07-27-2025 12:57:32 EDT by LIDA ARECHIGA M.D. Dictated By: LIDA ARECHIGA Signed By:07/27/25 1257 DD/ 0843 TD/TT: Brick Chimney Builder: Authorizing ProviderResult TypeResult StatusCoreanika Shafer DOCLINISYNC IMAGINGFinal Result documented in this encounter Visit Diagnoses Not on filedocumented in this encounter Care Teams Team MemberRelationshipSpecialtyStart DateEnd Date Raleigh Cleary DO [address] [place] [address] PCP - [facility]04/14/24 Bernardo Londono DO [address] [place] [address] PCP - GeneralFamily Medicine12/22/24documented as of this encounter
--- OUTSIDE RECORDS SUMMARY | 2025-08-07 07:43 | XMS_ITS | CCD ---
Author Organization [facility] Care Team Providers Care Dimension Specification Inspector Name Role Phone ORLANDO LO Unavailable Unavailable [...] Salazar Unavailable Unavailable Radha Salazar Unavailable Unavailable Stacey Orlando Wallace Unavailable Unavailable Nisha Rodriguez Mary Unavailable Unavailable Unavailable Primary Care Provider Unavailabl e Unavailable Primary Care Provider Unavailabl e LENCOSKI, GERRI D Referring Unavailable LENCOSKI, GERRI D Referring Unavailable LENCOSKI, GERRI D Admitting Unavailable LENCOSKI, GERRI D Attending Unavailable LENCOSKI, GERRI D Referring Unavailable [facility] Primary Care Provider DO Yumiko Brown Attending Provider DO Fely Wood Admit Provider DO Fely Wood Attending Provider DR ADEOLA HUNTER V Admitting Unavailable DR ADEOLA HUNTER V Consulting Unavailable DR ADEOLA HUNTER V Attending Unavailable YUMIKO BROWN Admitting Unavailable YUMIKO BROWN Consulting Unavailable YUMIKO BROWN Attending Unavailable [facility] Primary Care Unavaila ble Tony Fisher Attending Unavailable Tony Fisher Admitting Unavailable Marta Jamal MAYER Unavailable [phone] Raleigh Cleary DO Unavailable Bernardo Londono DO Primary Care Provider [phone] Marta ADDICTIONS RECOVERY SPECIALIST.Jamal MAYER Unavailable ARKHIPOVA-JOSE, SHANKAR Referring Unavail able ARKHIPOVA-JOSE, SHANKRA Referring Unavail able ARKHIPOVA-JOSE, SHANKAR Attending Unavail able ARKHIPOVA-JOSE, SHANKAR Referring Unavail able ARKHIPOVA-JOSE, SHANKAR Attending Unavail able Marta ADDICTIONS RECOVERY SPECIALIST.Jamal MAYER Unavailable [phone] Kanani DDS, Karon Attending Unavailable Kanani DDS, Karon Unavailable Unavailable Kanani DDS, Karon Unavailable Unavailable Christel BARRETT, Ramya Unavailable JANET MALCOLM Attending Unavailable MALCOLM, TOMS Admitting Unavailable NELDA URIBE Attending Unavailable SONIYADIEL Attending Unavailable SONIYADIEL Attending Unavailable KEARNEY, RAMYA Attending Unavailable MALCOLM, TOMS Referring Unavailable MALCOLM, JOESPHS Attending Unavailable LAURE DHILLON Attending Unavailable ARKHIPOVA-JOSE, SHANKAR Referring Unavail able IVON VENTURA Attending Unavailable LAURE DHILLON Attending Unavailable ARKHIPOVA-JOSE, SHANKAR Attending Unavail able MALCOLM, TOMS Attending Unavailable HOLLY MONTOYA Attending Unavailable JED MONTIEL Attending Unavailable RAMYA KEARNEY Attending Unavailable MALCOLM, TOMS Referring Unavailable RANDA BOUDREAUX Attending Unavailable MALCOLM, TOMS Referring Unavailable MALCOLM, TOMS Referring Unavailable Medications Current Medications MedicationDrug Class(es)DatesSig (Normalized)Sig (Original)acetaminophen 325 mg oral tablet (1 source)Start: 64-69-6208mupb 650 mg by mouth every four hours as needed for pain, then take 4000 mg by mouth every twenty-four hours as needed for punq644 mg, Oral, EVERY 4 HOURS PRN, Pain Mild (1-3), Fever, Fever >100.5 F (38 C), Starting Chelsie 01/13/21 at 1727 Maximum dose of acetaminophen is 4000 mg from all sources in 24 hours. PostpartumAcetaminophen / HYDROcodone (1 source)Opioid AgonistStart: 30-04-3120ZHOWUgbrtck-acetaminophen (NORCO) 5-325 MG per tablet 1 tabletbenzocaine 200 mg/ml / menthol 5 mg/ml topical spray (1 source)Standardized Chemical AllergenStart: 78-95-2336Rqzxndp, PRN, Pain, Starting Chelsie 01/13/21 at 1727 Apply to perineal area. Patient is capable and may s elf administer at bedside. Postpartumdocusate sodium 100 mg oral capsule (2 sources)Start: 54-76-4704gtpo 1 capsule by mouth once dailydocusate sodium (COLACE, DULCOLAX) 100 MG CAPS Take 100 mg by mouth daily 120 capsule 0 01/14/2021 Activedocusate sodium 50 mg / sennosides, shelter 8.6 mg oral tablet (4 sources)Start: 06-23-2025 End: 93-14-6561zric 8.6-50 mg by mouth in the morningsenna-docusate (Mariya- Colace) 8.6-50 MG tablet Take 1 tablet by mouth in the morning. 06/23/2025 10/0 06/2025 ActiveStart: 06-23-2025 End: 88-74-3404bqbw 1 tablet by mouth once dailysenna-docusate (SENNA-S) 8.6-50 mg per tablet Indications: Obesity, Class II, BMI 35-39.9 , Pre-op testing , Morbid obesity due to excess calories (HCC) Take 1 tablet by mouth once daily. 30 tablet 06/23/2025 07/23/2025 Activeetonogestrel 68 mg drug implant (3 sources)ProgestinStart: 50-77-7207hofwxifkpehf (NEXPLANON) implant IMPL 68 mg ibuprofen 600 mg oral tablet (4 sources)Nonsteroidal Anti-inflammatory DrugStart: 27-30-8417zusy 600 mg by mouth every six hoursIbuprofen Active 600 MG PO Q6H May 06, 2022 12:00am Start: 86-26-6584hlfp 600 mg by mouth every six hours as needed for ovui696 mg, Oral, EVERY 6 HOURS PRN, Pain Mild (1-3), Starting Chelsie 01/13/21 at 1727 Do not crush or break. Postpartumlansinoh lanolin ointment (1 source)Start: 50-06-1330Gkqdepr, PRN, Dry Skin, nipple discomfort, Starting Chelsie 01/13/21 at 1727, PostpartummetroNIDAZOLE 500 mg oral tablet (2 sources)Nitroimidazole AntimicrobialStart: 06-02-2025 End: 91-57-0478zupk 1 tablet by mouth in the morningmetroNIDAZOLE (Flagyl) 500 MG tablet Indications: Vaginal discharge Take 1 tablet (500 mg) by mouthin the morning and 1 tablet (500 mg) before bedtime. Do all this for 7 days. 14 tablet 06/02/2025 06/09/2025 Activeomeprazole 40 mg delayed release oral capsule (5 sources)Proton Pump InhibitorStart: 42-24-1291txed 1 capsule by mouth in the morningomeprazole (PriLOSEC) [address] capsule Take 40 mg by mouth in the morning. 06/23/2025 Activeondansetron 4 mg disintegrating oral tablet (6 sources)Serotonin-3 Receptor AntagonistStart: 57-02-9211gxnu 1 tablet by mouth every eight hours as neededondansetron ODT (Zofran-ODT) 4 MG disintegrating tablet Take 4 mg by mouth every 8 (eight) hours ifneeded 06/23/2025 ActiveStart: mg, Intravenous, EVERY 6 HOURS PRN, Nausea, Starting Chelsie 01/13/21 at 1727, PostpartumoxyCODONE hydrochloride 5 mg oral tablet (3 sources)Opioid AgonistStart: 06-23-2025 End: 02-37-6259nrdm 1 tablet by mouth every eight hours as needed for pain oxyCODONE IR (ROXICODONE) 5 mg immediate release tablet Indications: Obesity, Class II, BMI 35-39.9, Pre-op testing , Morbid obesity due to excess calories (HCC) Take 1 tablet by mouth every 8 hoursas needed for pain for up to 3 days. 5 tablet 06/23/2025 06/26/2025 ActivePrenatal Vit-Fe Uqs-WC-Gabzm (GNP DAILY ) 28-0.8 & 440 MG MISC (2 sources)Start: 51-52-0060lkbw 1 tablet by mouth once dailyPrenatal Vit-Fe Dgb-TA-Rejbw (GNP DAILY ) 28-0.8 & 440 MG MISC Take 1 tablet by mouth da cong 30 each 12 07/23/2020 ActivePrenatal Vit-Fe Fumarate-FA ( VITAMIN) 27-1 MG TABS tablet (1 source)Start: 18-12-2159icow 1 tablet by mouth once dailyPrenatal Vit-Fe Fumarate-FA ( VITAMIN) 27-1 MG TABS tablet TAKE 1 TABLET BY MOUTH DAILY 0 10/27/2020 Active3 ml sodium chloride 9 mg/ml injection (2 sources)Start: mL, Intravenous, EVERY 12 HOURS SCHEDULED (2 times per day), First dose on Chelsie 01/13/21 at 2100, PostpartumStart: 01-13-2021 take 10 mL intravenous route once10 mL, Intravenous, PRN, Line Care, Starting Chelsie 01/13/21 at 1727 After every IV line use Postpartumspironolactone 50 mg oral tablet (20 sources)Aldosterone AntagonistStart: 11-05-2023 End: 79-48-9696mieg 1 tablet by mouth once daily in the morningspironolactone (ALDACTONE) 50 mg tablet Take 50 mg by mouth every morning. 11/05/2023 Active Comment on above:Take 50 mg by mouth every morning. Completed/Discontinued Medications MedicationDrug Class(es)DatesSig (Normalized)Sig (Original)calcium chloride 0.0014 meq/ml / potassium chloride 0.004 meq/ml / sodium chloride 0.103 meq/ml / sodium lactate 0.028 meq/ml injectable solution (1 source)Start: 01-12-2021 End: 15-21-6982agdhcwdh ringers infusionclindamycin 10 mg/ml topical solution (2 sources)Lincosamide AntibacterialStart: 03-28-2024 End: 66-05-4002mqobleacnia (Cleocin T) 1 % external solution Indications: Bacterial folliculitis Apply to affectedareas on the backs of the thighs, once daily when flared, 30 day supply. 60 mL 11 03/28/2024 12/22/2024 Discontinued guaiFENesin 400 mg oral tablet (1 source)Start: 09-24-2020 End: 63-75-3648uvbe 1 tablet by mouth every four hours as neededguaiFENesin 400 MG tablet TAKE 1 TABLET BY MOUTH EVERY 4 HOURS NEEDED 0 09/24/2020 01/14/2021 Discontinued (Stop Taking at Discharge)ammonium lactate 120 mg/ml topical lotion (2 sources)Start: 03-28-2024 End: 74-25-4349rcojgvsn lactate (Lac-Hydrin) 12 % lotion Indications: Acanthosis nigricans Apply to affected areason body daily. 396 g 11 03/28/2024 12/22/2024 DiscontinuedmetFORMIN hydrochloride 1000 mg oral tablet (2 sources)BiguanideStart: 04-02-2024 End: 63-52-8603vmyd 1 tablet by mouth at mealtimemetFORMIN (Glucophage) 1000 MG tablet Indications: Obesity (BMI 30-39.9) , BMI 35.0-35.9,adult , Insulin resistance , PCOS (polycystic ovarian syndrome) Take 1 tablet (1,000 mg) by mouth in the morning. Take with meals. 30 tablet 5 04/02/2024 12/22/2024 DiscontinuedmiSOPROStol (CYTOTEC) pre-split tablet TABS 25 mcg (1 source)Start: 01-12-2021 End: 61-00-3144mxRETLGGelc (CYTOTEC) pre-split tablet TABS 25 mcg1 ml nalbuphine hydrochloride 10 mg/ml injection (1 source)Opioid Agonist/AntagonistStart: 01-13-2021 End: 04-92-0329keqmbnywoh (NUBAIN) injection 10 mgoxytocin (PITOCIN) 30 units in 500 mL infusion (1 source)Start: 01-12-2021 End: 63-16-0881ncrcebws (PITOCIN) 30 units in 500 mL rgkynbel14 hr scopolamine 0.0139 mg/hr transdermal system (1 source)AnticholinergicStart: 06-23-2025 End: 94-32-5855bqehgjgeuph (TRANSDERM-SCOP) patch 1.5 mg/72 hr (delivers 1 mg over 3 days) Indications: Obesity, Class II, BMI 35-39.9 , Pre-op testing , Morbid obesity due to excess calories (HCC) Apply 1 patch asdirected one time only for 1 dose. Apply behind ear the night before surgery at 6pm. Remove patch after 72 hours. 1 patch 06/23/2025 06/23/2025 ExpiredSemaglutide,0.25 or 0.5MG/DOS, (Ozempic, 0.25 or 0.5 MG/DOSE,) 2 MG/3ML solution pen-injector (2 sources)Start: 03-05-2024 End: 80-96-0122tmzmdh 0.5 mg by subcutaneous injection every week, then inject 1 mg by subcutaneous injection every weekSemaglutide,0.25 or 0.5MG/DOS, (Ozempic, 0.25 or 0.5 MG/DOSE,) 2 MG/3ML solution pen-injector Indications: Type 2 Diabetes Mellitus Inject 0.5 mg under the skin 1 (one) time per week for 30 days, THEN 1 mg 1 (one) time per week. 3 mL 3 03/05/2024 12/22/2024 Discontinued Tirzepatide (Mounjaro) 2.5 MG/0.5ML solution pen-injector (2 sources)Start: 03-25-2024 End: 57-13-2124kgryka 2.5 mg by subcutaneous injection every weekTirzepatide (Mounjaro) 2.5 MG/0.5ML solution pen-injector Indications: Insulin resistance Inject 2.5 mg under the skin 1 (one) time per week 2 mL 1 03/25/2024 12/22/2024 Discontinued Problems Active Problems Problem ClassificationProblemDateDocumented DateEpisodic/ChronicAcute and chronic tonsillitis (1 source)Hypertrophy of tonsils; Translations: [Hypertrophy of tonsils]Onset: 39-97-4516CepszdhHjjjfhzecjexgx/social admission (11 sources)Patient encounter status; Translations: [Dietary counseling and surveillance]Onset: 416102-54-5453TtycurvpTaalbrg disorders (20 sources)Anxiety disorder, unspecified; Translations: [Anxiety disorder] Onset: 827752-54-9680SpihlcqDuulijfgq of lipid metabolism (2 sources)Dyslipidemia; Translations: [Hyperlipidemia, unspecified]Onset: 758296-82-4801AnamnfzEatcvpacz hypertension (20 sources)Hypertensive disorder; Translations: [Essential (primary) hypertension]Onset: 852522-82-2165GaoykmlXqnwmmyizqcgs and screening for infectious disease (1 source)Exposure to sexually transmissible disorder; Translations: [Contact with and (suspected) exposure to infections with a predominantly sexual mode of transmission]78-87-3920FcuzjpszUirknblcg disorders (1 source)Amenorrhea; Translations: [Amenorrhea]ChronicOther aftercare (1 source)Encounter for surgical aftercare following surgery on the digestive system; Translations: [Encounter for surgical aftercare following surgery of digestive system]Onset: 50-59-2943MyyouzzoVnqbs endocrine disorders (20 sources)Polycystic ovarian syndrome; Translations: [Polycystic ovary syndrome]Onset: 08-02-2018 Resolved: 515482-33-5859XuzilhwSiaca female genital disorders (1 source)Pain in female genitalia on intercourse; Translations: [Unspecified dyspareunia]36-69-9532RdcvgpaKfyus female genital disorders (1 source)Vaginal discharge; Translations: [Other specified noninflammatory disorders of vagina]77-83-2237OpwhitdjHfquq female genital disorders (2 sources)Vaginal hymen finding; Translations: [Other specified noninflammatory disorders of vagina]23-99-0411TolztyjwUjoai gastrointestinal disorders (1 source)Bariatric surgery status; Translations: [S/P laparoscopic sleeve gastrectomy]Onset: 21-03-7616CshcfrpyZhumj liver diseases (1 source)Steatosis of liver; Translations: [Fatty (change of) liver, not elsewhere classified]26-17-2042DrxbvfbRbese liver diseases (1 source)Fatty (change of) liver, not elsewhere classified; Translations: [Fatty liver]Onset: 13-40-1570AacwldpWdkeo nervous system disorders (6 sources)Carpal tunnel syndrome; Translations: [Carpal tunnel syndrome, unspecified upper limb]Onset: 286117-84-4225UyxyxsyHdwny nervous system disorders (1 source)Other acute postprocedural pain; Translations: [Acute post-operative pain]Onset: 21-39-3560YttxlotuSydzf nutritional; endocrine; and metabolic disorders (12 sources)Body mass index 30+ - obesity; Translations: [Obesity, unspecified] Onset: 730089-48-4686QlnozonIbvll nutritional; endocrine; and metabolic disorders (4 sources)Severe obesity; Translations: [Morbid (severe) obesity due to excess calories]14-86-5656JjpzmvrQliue nutritional; endocrine; and metabolic disorders (20 sources)Obese class II; Translations: [Obesity, unspecified]Onset: 688968-17-2127LvmrwaaClyfb nutritional; endocrine; and metabolic disorders (20 sources)Insulin resistance; Translations: [Insulin resistance]Onset: 295556-33-8900WniogdqHfljo nutritional; endocrine; and metabolic disorders (2 sources)Cholesterol level - finding; Translations: [Lipoprotein deficiency] 65-74-9833KusyqlnSvrzb nutritional; endocrine; and metabolic disorders (6 sources)Lipodystrophy; 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, not elsewhere classified]Onset: 461583-68-0046VrnfpqpIkynb nutritional; endocrine; and metabolic disorders (4 sources)Morbid obesity; Translations: [Morbid (severe) obesity due to excess calories]87-04-6944TxawprbErkrz nutritional; endocrine; and metabolic disorders (2 sources)Morbid (severe) obesity due to excess calories; Translations: [Morbid obesity due to excess calories (HCC)]Onset: 71-18-8297OaflpecDuhpw nutritional; endocrine; and metabolic disorders (1 source)Body mass index (BMI) 35.0-35.9, adult; Translations: [Class 2 obesity without serious comorbidity with body mass index (BMI) of 35.0 to 35.9 in adult, unspecified obesity type]Onset: 59-70-9134HzjctrmSonpu nutritional; endocrine; and metabolic disorders (1 source)Body mass index (BMI) 37.0-37.9, adult; Translations: [Class 2 severe obesity with serious comorbidity and body mass index (BMI) of 37.0 to 37.9 in adult, unspecified obesity type (HCC)]Onset: 73-16-4199HtalimaHszpz nutritional; endocrine; and metabolic disorders (4 sources)Insulin resistance; Translations: [Insulin resistance]Onset: Other and delivery including normal (5 sources) test positive; Translations: [Normal ]Onset: 01-12-2021 Resolved: 072765-96-7153ElssuswoEpram skin disorders (1 source)Skin tag; Translations: [Other hypertrophic disorders of the skin] 87-25-9546FpxpgqlzRhwcgdyw codes; unclassified (1 source)Gestation period, 15 weeks; Translations: [15 weeks gestation of ]EpisodicResidual codes; unclassified (1 source)Gestation period, 25 weeks; Translations: [25 weeks gestation of ]EpisodicUnclassified (2 sources)Hypertrophy of tonsils / J35.1(ICD-9)Onset: 27-33-6835Hxxklwpnfgky (1 source)Chronic pharyngitis / J31.2(ICD-9)Onset: 53-09-1346Tdazrcvhhogw (4 sources)Bariatric Surgery Care CompanionOnset: 237558-40-8890 Unclassified (4 sources)Autogenerated ProblemOnset: 723312-50-5857Uqtavisvfqvm (1 source)Obesity, Class I, BMI 30-34.9; Translations: [Obesity, Class I, BMI 30-34.9]Onset: 57-44-2943Gdqhyegnewsk (1 source)Class 2 obesity without serious comorbidity with body mass index (BMI) of 35.0 to 35.9 in adult, unspecified obesity type; Translations: [Class 2 obesity without serious comorbidity with body mass index (BMI) of 35.0 to 35.9 in adult, unspecified obesity type]Onset: 72-14-2268Qymdudoeqtrr (1 source)Obesity, Class II, BMI 35-39.9; Translations: [Obesity, Class II, BMI 35-39.9]Onset: 18-84-1403Xsieadcmdain (1 source)Pre-Op VisitOnset: 80-43-9433Yrildqbytbgv (1 source)Class 2 severe obesity with serious comorbidity and body mass index (BMI) of 37.0 to 37.9 in adult,unspecified obesity type (HCC); Translations: [Class 2 severe obesity with serious comorbidity and body mass index (BMI) of 37.0 to 37.9 in adult, unspecified obesity type (HCC)]Onset: 01-21-2025 Past or Other Problems Problem ClassificationProblemDateDocumented DateEpisodic/ChronicDiabetes mellitus without complication (2 sources)Prediabetes; Translations: [Prediabetes]Onset: EpisodicDiabetes or abnormal glucose tolerance complicating ; childbirth; or the puerperium (10 sources)Abnormal glucose complicating ; Translations: [Gestational diabetes mellitus]Onset: 34-08-3161SmdbribkDpwshcqpoeyvm symptoms and ill- defined conditions (4 sources)Proteinuria; Translations: [Proteinuria affecting in third trimester]Onset: 03-14-2016 Resolved: 514791-80-2461LylrnspuWhqnt screening for suspected conditions (not mental disorders or infectious disease) (14 sources)Other specified abnormal findings of blood chemistry; Translations: [Other nonspecific findings on examination of blood]Onset: EpisodicUnclassified (2 sources)Patient encounter ozfmbm71-63-5939Fdsbfpriqyzr (1 source)ext (chief complaint)Onset: 05-08-2025 Results Test NameValueInterpretationReference RangeFacilityECG 12-LEADon 47-14-3752[place] [address] Electrocardiograph Report Signed Patient: JANAY CRUZ MR#: [id number] : 1995 Acct:[id number] Age/Sex: 30 / F ADM Date: 07/27/25 Loc: [facility] Attending Dr: Yadiel Shafer D.O. Ordering Physician: Yadiel Shafer D.O. 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 Measurements Intervals [place] Rate: 51 P: 43 ND: 147 QRS: 0 QRSD: 92 T: 0 QT: 425 QTc: 394 Interpretive Statements SINUS BRADYCARDIA Borderline ECG No previous ECG available for comparison Electronically Signed On 07-27-2025 12:57:32 EDT by LIDA ARECHIGA M.D. Dictated By: LIDA ARECHIGA Signed By: 07/27/25 1257 DD/ 2 TD/TT: Commercial Lines Manager:Anna Hair MD - 07/27/2025 [place] [address] Electrocardiograph Report Signed Patient: JANAY CRUZ MR#: [id number] : 1995 Acct:[id number] Age/Sex: 30 / F ADM Date: 07/27/25 Loc: [facility] Attending Dr: Yadiel Shafer D.O. Ordering Physician: Yadiel Shafer D.O. 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 Measurements Intervals [place] Rate: 51 P: 43 ND: 147 QRS: 0 QRSD: 92 T: 0 QT: 425 QTc: 394 Interpretive Statements SINUS BRADYCARDIA Borderline ECG No previous ECG available for comparison Electronically Signed On 07-27-2025 12:57:32 EDT by LIDA ARECHIGA M.D. Dictated By: LIDA ARECHIGA Signed By: 07/27/25 1257 DD/ 2 TD/TT: Commercial Lines Manager: RIN HealthcareRadiology Study observation (narrative)NOMAlejandra HealthcareECG 12-LEAD Ordered By: Radiologist Radiology on 88-05-6077[facility] Work Phone: cNOVon [phone] Visit (BMINO) JANAY CRUZ ([id number]) 1995 F Date Time Provider Department 07/06/25 9:00 AM RANDA BOUDREAUX During your visit today, we recorded the following information about you: Temperature Pulse Blood pressure Weight 97.7 degrees 72/minute 109/78 93.6 kg Height 1.626 m Randa Boudreaux APRN.CNP 07/06/2025 1:38 PM Signed Assessment BMI Surgical PostOp Clinic Note July 06, 2025 INTERVAL HISTORY: Janay Cruz is here for 7-10 day post op visit. Post-Op Sleeve Gastrectomy: - Janay Cruz is one week post-op from sleeve gastrectomy. - Concerns about suture discomfort. - Using [employer] shakes; until she noticed high [...] loss: 4.4 kg (9 lb 11.2 oz) [place] weight: 66.1 kg (145 lb 10.6 oz) [...] (BMI) of 35.0 to (more content not included)...[facility]Pro[facility] 2000 panelon 03-33-1497Edeqa gap [Moles/Vol]10 mmol/LNormal8-15 [facility] HospitalComment on above:Order Comment: Specimen Type: BLOOD SPECIMEN Ordering Facility: [facility] Address: [address] [place], [place] [address]Performed By: #### [id number] #### [facility] CLIA [id number] [address] [place] [address] [place] AMERICACalcium [Mass/Vol]8.4 mg/dLLow 8.5-10.2Fbeth israel [facility] HospitalComment on above:Order Comment: Specimen Type: BLOOD SPECIMEN Ordering Facility: [facility] Address: [address] [place], [place] [address]Performed By: #### [id number] #### [facility] CLIA [id number] [address] [place] [address] [place] AMERICAChloride [Moles/Vol]106 mmol/LNormal 98-107[facility] HospitalComment on above:Order Comment: Specimen Type: BLOOD SPECIMEN Ordering Facility: [facility] Address: [address] [place], [place] [address]Performed By: #### [id number] #### [facility] CLIA [id number] [address] [place] [address] [place] AMERICACO2 [Moles/Vol]23 mmol/RUajofq58-13 [facility] HospitalComment on above:Order Comment: Specimen Type: BLOOD SPECIMEN Ordering Facility: [facility] Address: [address] [place], [place] [address]Performed By: #### [id number] #### [facility] CLIA [id number] [address] [place] [address] [place] MEM[facility]IAL HEALTH SYSTEMCreatinine [Mass/Vol]0.85 mg/dL Normal0.58-0.96[facility] HospitalComment on above:Order Comment: Specimen Type: BLOOD SPECIMEN Ordering Facility: [facility] Address: [address] [place], [place] [address]Performed By: #### [id number] #### [facility] CLIA [id number] [address] [place] [address] [place] AMERICAeGFRcr SerPlBld CKD-EPI 726098 mL/min/1.73m???Normal>=60FaWorcester City HospitalComment on above:Order Comment: Specimen Type: BLOOD SPECIMEN Ordering Facility: [facility] Address: [address] [place], [place] [address]Result Comment: Estimated Glomerular Filtration Rate (eGFR) is calculated using the 2020 CKD-EPI cre atinine equation. This equation utilizes serum creatinine, sex, and age as parameters. The creatinine assay has traceable calibration to isotope dilution- mass spectrometry. Refer to KDIGO guidelines for clinical interpretation. In patients with unstable renal function, e.g. those with acute kidney injury, the eGFR may not accurately reflect actual GFR.Performed By: #### [id number] #### [facility] CLIA [id number] [address] [place] [address] [place] AMERICAGlucose [Mass/Vol]90 mg/dLNormal 74-99FaWorcester City HospitalComment on above:Order Comment: Specimen Type: BLOOD SPECIMEN Ordering Facility: [facility] Address: [address] [place], [place] [address]Result Comment: The [place] [employer] (ADA) provides guidance for cutoff [...] Standards of Medical Care in Diabetes 2016, [place] [employer]. Diabetes Care. 2016.39(Suppl 1).Performed By: #### 22906-3 #### [facility] CLIA [id number] [place] [address] [place] AMERICAPotassium [Moles/Vol]3.7 mmol/L Normal3.7-5.1[facility] HospitalComment on above:Order Comment: Specimen Type: BLOOD SPECIMEN Ordering Facility: [facility] Address: [address] [place], [place] [address]Performed By: #### 86925-2 #### [facility] CLIA [id number] [address] [place] [address] [place] [facility] MEM[facility]IAL HOSPITALSodium [Moles/Vol]139 mmol/LNormal 136-144[facility] HospitalComment on above:Order Comment: Specimen Type: BLOOD SPECIMEN Ordering Facility: [facility] Address: [address] [place], [place] [address]Performed By: #### 17417-2 #### [facility] CLIA [id number] [address] [place] [address] [place] OF AMERICAUrea nitrogen [Mass/Vol]7 mg/dL Normal7-21[facility] HospitalComment on above:Order Comment: Specimen Type: BLOOD SPECIMEN Ordering Facility: [facility] Address: [address] [place], [place] [address]Performed By: #### 64278-4 #### [facility] CLIA [id number] [address] [place] [address] [facility] OF AMERICACB panel Auto (Bld)on 06-30-2025 Erythrocyte distribution width (RBC) [Ratio]12.6 %Uxazbd91.5-15.0[facility] HospitalComment on above:Order Comment: Specimen Type: BLOOD SPECIMEN Ordering Facility: [facility] Address: [address] [place], [place] [address]Performed By: #### 46884-7 #### [facility] CLIA [id number] [address] [place] [address] [facility] OF MEMORIAL HEALTH SYSTEMHematocrit (Bld) [Volume fraction] 36.7 %Dkcovg54.0-46.0[facility] HospitalComment on above:Order Comment: Specimen Type: BLOOD SPECIMEN Ordering Facility: [facility] Address: [address] [place], [place] [address]Performed By: #### 09890-6 #### [facility] CLIA [id number] [place] [address] [place] OF AMERICAHemoglobin (Bld) [Mass/Vol]12.3 g/dL Wvkucu12.5-15.5F[facility] HospitalComment on above:Order Comment: Specimen Type: BLOOD SPECIMEN Ordering Facility: [facility] Address: [address] [place], [place] [address]Performed By: #### 71883-5 #### [facility] IA [id number] [address] [place] [address] (RBC) [Entitic mass]28.5 pg Wfcigr55.0-34.0[facility] HospitalComment on above:Order Comment: Specimen Type: BLOOD SPECIMEN Ordering Facility: [facility] Address: [address] [place], [place] [address]Performed By: #### 68378-5 #### [facility] CLIA [id number] [address] [place], [place] [address]MCHC (RBC) [Mass/Vol]33.5 g/dLNormal 30.5-36.0[facility] HospitalComment on above:Order Comment: Specimen Type: BLOOD SPECIMEN Ordering Facility: [facility] Address: [address] [place], [place] [address]Performed By: #### 63821-2 #### [facility] CLIA [id number] [address] [place] [address] (RBC) [Entitic vol]85.0 fLNormal 80.0-100.0[facility] HospitalComment on above:Order Comment: Specimen Type: BLOOD SPECIMEN Ordering Facility: [facility] Address: [address] [place], [place] [address]Performed By: #### 95146-3 #### [facility] CLIA [id number] [address] [place] [address] [place] OF AMERICANucleated RBC (Bld) [#/Vol]10*3/uL Normal<0.01[facility] HospitalComment on above:Order Comment: Specimen Type: BLOOD SPECIMEN Ordering Facility: [facility] Address: [address] [place], [place] [address]Performed By: #### 02118-3 #### [facility] CLIA [id number] [address] [place] [address] [place] OF AMERICAPlatelet mean volume (Bld) [Entitic vol]10.2 fLNormal9.0-12.7F[facility] HospitalComment on above:Order Comment: Specimen Type: BLOOD SPECIMEN Ordering Facility: [facility] Address: [address] [place], [place] [address]Performed By: #### 30854-6 #### [facility] CLIA [id number] [address] [place] [address] [place] OF AMERICAPlatelets (Bld) [#/Vol]237 10*3/uL Vapbll962-286Sfpvumlr HospitalComment on above:Order Comment: Specimen Type: BLOOD SPECIMEN Ordering Facility: [facility] Address: [address] [place], [place] [address]Performed By: #### 20155-2 #### [facility] CLIA [id number] [address] [place] [address] [place] OF AMERICARBC (Bld) [#/Vol]4.32 10*6/uLNormal 3.90-5.20[facility] HospitalComment on above:Order Comment: Specimen Type: BLOOD SPECIMEN Ordering Facility: [facility] Address: [address] [place], [place] [address]Performed By: #### 22202-7 #### [facility] CLIA [id number] [address] [place] [address] [place] OF AMERICAWBC (Bld) [#/Vol]11.61 10*3/uLHigh 3.70-11.00[facility] HospitalComment on above:Order Comment: Specimen Type: BLOOD SPECIMEN Ordering Facility: [facility] Address: [address] [id number] By: #### 31293-4 #### [facility] CLIA [id number] [address] [address]CNDSon 61-69-6045ONBWBHZ ID: [id number] Author: JENNY AYERS APRN.CNP Service: General Surgery Author Type: Nurse Practitioner [...] 64 oz everyday (Recomme (more content not included)...Normal [facility] HospitalANES POSTPROC EVALon 60-65-8588IVIG POSTPROC EVALHNO ID: [id number] Author: JOLENE MURILLO MD Service: Anesthesiology Author Type: Anesthesiologist Type: Anesthesia Postprocedure Evaluation Filed: 06/29/2025 12:20 Note Text: POST ANESTHESIA EVALUATION NOTE : 1995 Procedure Summary Date: 06/29/25 Room / Location: OR / OR Anesthesia Start: 744 Anesthesia Stop: [...] June 29, 2025 TIME: 12:20 PM CSN: [id number] Medical Center PRE-OPon 13-07-0466HFJL PRE-OPHNO ID: [id number] Author: JOLENE MURILLO MD Service: Anesthesiology Author Type: Anesthesiologist Type: Anesthesia Preprocedure Evaluation Filed: 06/29/2025 07:12 Note Text: ANESTHESIOLOGY DAY OF SURGERY NOTE : 1995 Procedure Information Date/Time: 06/29/25729 Procedure: LAPAROSCOPIC LONGITUDINAL GASTRECTOMY, GASTRIC RESTRICTIVE PROCEDURE (Abdomen) Location: OR05 / OR Surgeons: Janet Malcolm MD Estimated [...] and consent discussed: yes. Patient / Responsible Libertarian agrees to proceed: yes Patient / Surrogate [...] June 29, 2025 TIME: 7:12 AM CSN: [id number] [facility] OP NOTon 06-29-2025 BRIEF OP NOTHNO ID: [id number] Author: ANGY KINCAID MD Service: General Surgery Author Type: Resident Type: Brief Op Note Filed: 06/29/2025 09:40 Note Text: GENERAL SURGERY BRIEF OP NOTE LOG ID: [id number] Surgery/Procedure Date: 06/29/2025 Incision/Procedure Start Time: 8:13 AM Incision Close/Procedure End Time: 9:33 AM Surgeon(s) and Yarn Mercerizer Operator(s): Surgeons and Role: * Janet Malcolm MD [...] Sleeve Gastrectomy Tissue Stomach, Resection SURGICAL PATHOLOGY Janet Malcolm MD 06/29/2025 9:02 AM Implant: * No implants in log * Wound Classification: Class 2, operative wound clean-contaminated, gastrointestinal/biliary tract entered without significant spillage Complications: None Pre-Op/Pre-Procedure Diagnosis: Pre-Op Diagnosis Codes: * Morbid obesity due to excess calories (HCC) [E66.01] Post-Op/Post-Procedure Diagnosis: Same SIGNATURE: Angy Kincaid MD PATIENT NAME: Janay Cruz DATE: June 29, 2025 TIME: 9:39 AM PAGER/CONTACT #: [phone] HospitalCONFIRM BLOOD TYPEon 56-98-7419WNOWEltqogNkzkdzuj HospitalComment on above:Order Comment: Specimen Type: BLOOD SPECIMEN Ordering Facility: [facility] Address: [address] [place], [place] [address]Performed By: #### CONABO #### [facility] CLIA [id number] [address] [place] [address] [place] OF AMERICARh Nom (Bld)PositiveHebrew Rehabilitation Center HospitalComment on above:Order Comment: Specimen Type: BLOOD SPECIMEN Ordering Facility: [facility] Address: [address] [place], [place] [address]Performed By: #### CONABO #### [facility] CLIA [id number] [address] [place] [address] STATES OF AMERICAOPERATIVE NOon [id number] NOHNO ID: [id number] Author: JANET MALCOLM MD Service: General Surgery Author Type: Physician Type: Operative Report Filed: 06/29/2025 12:58 Note Text: [facility] - Operative Report JANAY CRUZ : 1995 AGE: 30. SEX: F PATIENT TYPE: I HOSP SVC: Surgical LOCATION: [facility] ATTENDING PHYSICIAN: JANET MALCOLM CSN NUMBER: [id number] DATE OF SURGERY/PROCEDURE: 06/29/2025 INCISION/PROCEDURE START TIME: 8:13 AM INCISION CLOSE/PROCEDURE END TIME: 9:33 AM PREOPERATIVE DIAGNOSIS: 1. Morbid obesity, 37. 2. Polycystic ovary syndrome. 3. Hypertension. POSTOPERATIVE DIAGNOSIS: 1. Morbid obesity, 37. 2. Polycystic ovary syndrome. 3. Hypertension. SURGEON: Janet Malcolm MD UTILITY SYSTEMS REPAIRER OPERATOR: Angy Kincaid MD. SURGERY/PROCEDURE: 1. Laparoscopic sleeve [...] uncomplicated sleeve gastrectomy was performed. 2. A 40-British bougie was used to size the sleeve. [...] after the left shakira was dissected. A 40-British bougie was introduced into the stomach. Initial firing was with an Rosalia 3000 blue load. Subsequent multiple firings with an Rosalia 4000 blue load using the 40-British bougie as a Sizer was performed to completely transect the stomach. The final firing was with an Rosalia 3000 white load. The specimen was retrieved [...] in throughout the operation. Janet Malcolm MD TA:[id number] /[id number] NoSturdy Memorial HospitalPathology biopsy report Dany (Tiss)on [id number] DISCLAIMERNoSturdy Memorial HospitalComment on above:Order Comment: Specimen Type: TISSUE SPECIMEN Ordering Facility: [facility] Address: [address] [place], [place] [address]Inpfgb Comment: Laboratory Developed Test (LDT) Disclaimer: Performance characteristics of immunohistochemical, immunofluorescent, and chromogenic in-situ hybridization tests have been determined by the performing laboratory within the [facility] Department of Pathology and Laboratory Medicine ([facility], [facility], [facility], [facility], [facility], [facility], or ) in a manner consistent with CLIA requirements. One or more of these tests may not have been cleared or approved by the FDA. The [facility] Department of Pathology and Laboratory Medicineis regulated under CLIA as qualified to perform high-complexity testing. These tests are used for clinical purposes. These should not be regarded as investigational or for research. Positive and negative controls stain appropriately.Performed By: #### 87854-1 #### [facility] CLIA [id number] [address] [place] [address] LABORATORY CLIA [id number] [address] [place] [address] REPORTFramingham Union Hospital Comment on above:Order Comment: Specimen Type: TISSUE SPECIMEN Ordering Facility: [facility] Address: [address] [place], [place] [address]Result Comment: Surgical Pathology Report Case: [id number] Authorizing Provider: Janet Malcolm MD Collected: 06/29/2025 09:02 AM [facility] Received: 06/29/2025 09:48 AM Operating Room Pathologist: Refugio Ritter MD Specimen: Stomach, Resection, Sleeve GastrectomyPerformed By: #### 11536-6 #### [facility] CLIA [id number] [address] [place] [address] LABORATORY CLIA [id number] [address] [place], [place] [address]CLINICAL HISTORYFramingham Union HospitalComment on above:Order Comment: Specimen Type: TISSUE SPECIMEN Ordering Facility: [facility] Address: [address] [place], [place] [address]Result Comment: Pre-op diagnosis: Morbid obesity due to excess calories (HCC) [E66.01]Performed By: #### 68359-8 #### [facility] CLIA [id number] [address] [place] [address] LABORATORY CLIA [id number] [address] [place], [place] [address]FINAL DIAGNOSISNormHoly Family Hospital HospitalComment on above:Order Comment: Specimen Type: TISSUE SPECIMEN Ordering Facility: [facility] Address: [address] [place] [address]Gckqzh Comment: Portion of stomach, excision: - Segment of gastric body/fundus with no diagnostic abnormality. JEL 07/01/2025 at 1728 EDTPerformed By: #### 87211-5 #### [facility] CLIA [id number] [address] [place] [address] LABORATORY CLIA [id number] [address] [place], [place] [address]FINBroward Health Coral SpringsComment on above:Order Comment: Specimen Type: TISSUE SPECIMEN Ordering Facility: [facility] Address: [address] [place], [place] [address]Result Comment: Diagnostic interpretation performed at: [facility], [address] [place] [address] CLIA# [id number] Mohs Surgeon/General Dermatologist: Refugio Ritter MDPerformed By: #### 46880-6 #### [facility] CLIA [id number] [address] [place] [address] LABORATORY CLIA [id number] [address] [place], [place] [address]GROSS DESCRIPTIONHebrew Rehabilitation Center HospitalComment on above:Order Comment: Specimen Type: TISSUE SPECIMEN Ordering Facility: [facility] Address: [address] [place], [place] [address]Result Comment: A. Stomach, Resection Received fresh designated sleeve gastrectomy is a portion of stomach that measures 17 x 4 x 2.2 cm. The serosal surface is pink-pedersen and slightly ragged. The stomach is opened along the staple line to reveal pink-pedersen gastric mucosa, showing normal rugal folds, with a wall thickness of 0.8 cm. Maintenance Tech sections are submitted in one cassette. WE June 29, 2025 11:31 AM Gross examination performed at [facility], [address] [place], [place] [address]Performed By: #### 88501-5 #### [facility] CLIA [id number] [address] [place] [address] STATES OF [facility] CLIA [id number] [address] [place] [address] [place] OF AMERICATYPE + SCREENon [id number] [facility] HospitalComment on above:Order Comment: Specimen Type: BLOOD SPECIMEN Ordering Facility: [facility] Address: [address] [place], [place] [address]Performed By: #### TSCR #### [facility] CLIA [id number] [address] [place] [address] [place] AMERICARh Nom (Bld)PositiveNoSaugus General Hospital HospitalComment on above:Order Comment: Specimen Type: BLOOD SPECIMEN Ordering Facility: [facility] Address: [address] [place], [place] [address]Performed By: #### TSCR #### [facility] CLIA [id number] [address] [place] [address] [place] AMERICATYPE AND SCREEN HADQJEFONL20/18/2025 23:59NormalGloucester HospitalComment on above:Order Comment: Specimen Type: BLOOD SPECIMEN Ordering Facility: [facility] Address: [address] [place], [place] [address]Performed By: #### TSCR #### [facility] CLIA [id number] [address] [place] [address] [place] [facility]IAL [facility]ALTH SYSTEMCB W Auto Differential panel (Bld) on 91-95-9619Eiglsgiym (Bld) [#/Vol]0.06 10*3/uLNormal<0.11ClevelDuke University HospitalCombeaumont hospital on above:Order Comment: Specimen Type: BLOOD SPECIMENOrdering Facility: [facility] Address:[address] [place], [place] [address]Performed By: #### 69328-3 ####[facility] LABCLIA [id number] [place] [address] [place] Basophils/100 WBC (Bld)0.7 %NormalCleveland Clinic ClevelandComment on above: Order Comment: Specimen Type: BLOOD SPECIMENOrdering Facility: [facility] Address:[address] [place], [place] [address]Performed By: #### 98125- 8 ####[facility] LABIA [id number] [place] [address] [place] AMERICADifferential cell count method Nom (Bld)AutoNormalCKettering Health on above:Order Comment: Specimen Type: BLOOD SPECIMENOrdering Facility: [facility] Address:[address] [place], [place] [address]Performed By: #### 62130-4 ####[facility] LABIA [id number] [place] [address] [place] AMERICAEosinophils (Bld) [#/Vol]0.25 10*3/uLNormal<0.46[facility] on above:Order Comment: Specimen Type: BLOOD SPECIMENOrdering Facility: [facility] Address:[address] [place], [place] [address]Performed By: #### 07364-1 ####[facility] LABIA [id number] [place] [address] [place] AMERICAEosinophils/100 WBC (Bld)2.9 % NormalSumma Health Barberton Campus on above:Order Comment: Specimen Type: BLOOD SPECIMENOrdering Facility: [facility] Address:[address] [place], [place] [address]Performed By: #### 81079-5 ####[facility] LABIA [id number] [place] [address] [place] AMERICAErythrocyte distribution width (RBC) [Ratio]12.8 %Normal 11.5-15.0[facility] on above:Order Comment: Specimen Type: BLOOD SPECIMENOrdering Facility: [facility] Address:[address] [place], [place] [address]Performed By: #### 75815-1 ####[facility] LABIA [id number] [place] [address] [place] AMERICAHematocrit (Bld) [Volume fraction]45.7 %Xeplvg28.0-46.0 [facility] on above:Order Comment: Specimen Type: BLOOD SPECIMENOrdering Facility: [facility] Address:[address] [place], [place] [address]Performed By: #### 33609-9 ####[facility] LABIA [id number] [place] [address] [place] AMERICAHemoglobin (Bld) [Mass/Vol]14.9 g/sTQgcrup53.5-15.5CKettering Health on above:Order Comment: Specimen Type: BLOOD SPECIMENOrdering Facility: [facility] Address:[address] [place], [place] [address]Performed By: #### 55996-7 ####[facility]ITALIA [id number] [place] [address] [place] Immature granulocytes (Bld) [#/Vol]10*3/uLNormal<0.10[facility] Comment on above:Order Comment: Specimen Type: BLOOD SPECIMENOrdering Facility: [facility] Address:[address] [place] [address] Performed By: #### 77886-1 ####[facility]IA [id number] [place] [address] [place] Immature granulocytes/100 WBC (Bld)0.2 %NormalSumma Health Barberton Campus on above:Order Comment: Specimen Type: BLOOD SPECIMENOrdering Facility: [facility] Address:[address] [place] [address] Performed By: #### 21508-7 ####[facility] [id number] [place] [address] [place] Lymphocytes (Bld) [#/Vol]2.58 10*3/uLNormal1.00-4.00[facility] Comment on above:Order Comment: Specimen Type: BLOOD SPECIMENOrdering Facility: [facility] Address:[address] [place] [address] Performed By: #### 04071-2 ####[facility] LABCLIA [id number] [address] Lymphocytes/100 WBC (Bld)29.8 %NormalSumma Health Barberton Campus on above: Order Comment: Specimen Type: BLOOD SPECIMENOrdering Facility: [facility] Address:[address] [place], [place] [address]Performed By: #### 44515- 8 ####[facility] LABIA [id number] [address] ST[address]ETMCH (RBC) [Entitic mass]28.5 pg Rkryqc92.0-34.0Summa Healthment on above:Order Comment: Specimen Type: BLOOD SPECIMENOrdering Facility: [facility] Address:[address] [place], [place] [address]Performed By: #### 77285-6 ####[facility]IA [id number] [address] ST[address]ETMCHC (RBC) [Mass/Vol]32.6 g/dL Wunuyz72.5-36.0[facility] on above:Order Comment: Specimen Type: BLOOD SPECIMENOrdering Facility: [facility] Address:[address] [place], [place] [address]Performed By: #### 92809-8 ####[facility] LABIA [id number] [address]V (RBC) [Entitic vol]87.5 fL Tppmmi41.0-100.0[facility] on above:Order Comment: Specimen Type: BLOOD SPECIMENOrdering Facility: [facility] Address:[address] [place], [place] [address]Performed By: #### 48622-5 ####[facility] LABCLIA [id number] [place] [address] [place] AMERICAMonocytes (Bld) [#/Vol]0.55 10*3/uLNormal<0.87[facility] on above:Order Comment: Specimen Type: BLOOD SPECIMENOrdering Facility: [facility] Address:[address] [place], [place] [address]Performed By: #### 33079-4 ####[facility] LABCLIA [id number] [place] [address] [place] AMERICAMonocytes/100 WBC (Bld)6.3 % NormalSumma Health Barberton Campus on above:Order Comment: Specimen Type: BLOOD SPECIMENOrdering Facility: [facility] Address:[address] [place], [place] [address]Performed By: #### 21908-3 ####[facility] LABIA [id number] [place] [address] [place] AMERICANeutrophils (Bld) [#/Vol]5.21 10*3/uLNormal1.45-7.50[facility] on above:Order Comment: Specimen Type: BLOOD SPECIMENOrdering Facility: [facility] Address:[address] [place], [place] [address]Performed By: #### 56898-3 ####[facility] LABCLIA [id number] [place] [address] [place] AMERICANeutrophils/100 WBC (Bld)60.1 %NormalSumma Health Barberton Campus on above:Order Comment: Specimen Type: BLOOD SPECIMENOrdering Facility: [facility] Address:[address] [place] [address] Performed By: #### 53693-1 ####[facility] LABCLIA [id number] [place] [address] [place] Nucleated RBC (Bld) [#/Vol]10*3/uLNormal<0.01[facility] on above:Order Comment: Specimen Type: BLOOD SPECIMENOrdering Facility: [facility] Address:[address] [place] [address] Performed By: #### 46138-0 ####[facility] LABIA [id number] [place] [address] [place] Nucleated RBC/100 WBC (Bld) [Ratio]0.0 /100 WBCNormalCLicking Memorial Hospital Comment on above:Order Comment: Specimen Type: BLOOD SPECIMENOrdering Facility: [facility] Address:[address] [place] [address] Performed By: #### 14150-3 ####[facility] LABIA [id number] [place] [address] [place] Platelet mean volume (Bld) [Entitic vol]10.7 fLNormal9.0-12.7CKettering Health on above:Order Comment: Specimen Type: BLOOD SPECIMENOrdering Facility: [facility] Address:[address] [place], [place] [address]Performed By: #### 88233-6 ####[facility] LABIA [id number] [place] [address] [place] Platelets (Bld) [#/Vol]296 10*3/oNHomarf531-012XbfgsaqopSumma Health [facility] Campus on above:Order Comment: Specimen Type: BLOOD SPECIMENOrdering Facility: [facility] Address:[address] [place] [address] Performed By: #### 96631-7 ####[facility] LABIA [id number] [place] [address] [place] RBC (Bld) [#/Vol]5.22 10*6/uLHigh3.90-5.20[facility] on above:Order Comment: Specimen Type: BLOOD SPECIMENOrdering Facility: [facility] Address:[address] [place], [place] [address]Performed By: #### 45155-9 ####[facility] LABCLIA [id number] [place] [address] [place] AMERICAWBC (Bld) [#/Vol]8.67 10*3/uLNormal3.70-11.00[facility] on above:Order Comment: Specimen Type: BLOOD SPECIMENOrdering Facility: [facility] Address:[address] [place], [place] [address]Performed By: #### 15726-3 ####[facility] LABIA [id number] [place] [address] [place] AMERICAComprehensive metabolic 2000 panelon 10-51-6645Ihbvykf [Mass/Vol]4.7 g/dLNormal3.9-4.9CKettering Health on above:Order Comment: Specimen Type: BLOOD SPECIMENOrdering Facility: [facility] Address:[address] [place], [place] [address]Performed By: #### 79619-0 ####[facility] LABCLIA [id number] [place] [address] [place] ALP [Catalytic activity/Vol]78 U/HEqbyad88-730DrqcehpwxSum[facility] on above:Order Comment: Specimen Type: BLOOD SPECIMENOrdering Facility: [facility] Address:[address] [place] [address] Performed By: #### 93869-1 ####[facility] LABIA [id number] [place] [address] [place] ALT [Catalytic activity/Vol]143 U/LHigh7-38[facility] on above:Order Comment: Specimen Type: BLOOD SPECIMENOrdering Facility: [facility] Address:[address] [place], [place] [address]Performed By: #### 21786-8 ####[facility] LABCLIA [id number] [address] [place] [address] [place] AMERICAAnion gap [Moles/Vol] 14 mmol/LNormal8-15[facility] on above:Order Comment: Specimen Type: BLOOD SPECIMENOrdering Facility: [facility] Address:[address] [place], [place] [address]Performed By: #### 03631-4 ####[facility] LABCLIA [id number] [place] [id number] [place] AMERICAAST [Catalytic activity/Vol]72 U/CVcmh48-34UvbtivdroSumma Health [facility] on above:Order Comment: Specimen Type: BLOOD SPECIMENOrdering Facility: [facility] Address:[address] [place], [place] [address]Performed By: #### 32241-6 ####[facility] LABCLIA [id number] [place] [address] [place] AMERICABilirubin [Mass/Vol]1.5 mg/dLHigh0.2-1.3CKettering Health on above:Order Comment: Specimen Type: BLOOD SPECIMENOrdering Facility: [facility] Address:[address] [place], [place] [address]Performed By: #### 90112-9 ####[facility] LABCLIA [id number] [place] [id number] [place] Calcium [Mass/Vol]9.7 mg/dLNormal8.5-10.2CKettering Health on above:Order Comment: Specimen Type: BLOOD SPECIMENOrdering Facility: [facility] Address:[address] [place], [place] [address]Performed By: #### 36870-9 ####[facility] LABCLIA [id number] [place] [id number] [place] AMERICAChloride [Moles/Vol] 100 mmol/DGzgidz42-714PbblooswtSumma Health [facility] on above:Order Comment: Specimen Type: BLOOD SPECIMENOrdering Facility: [facility] Address:[address] [place], [place] [address]Performed By: #### 46083-2 ####[facility] LABIA [id number] [place] [address] [place] AMERICACO2 [Moles/Vol]23 mmol/LNormal 22-30[facility] on above:Order Comment: Specimen Type: BLOOD SPECIMENOrdering Facility: [facility] Address:[address] [place], [place] [address]Performed By: #### 46636-8 ####[facility] LABIA [id number] [address] STATES OF [facility]IAL HEALTH SYSTEMCreatinine [Mass/Vol]0.82 mg/dLNormal0.58-0.96[facility] on above:Order Comment: Specimen Type: BLOOD SPECIMENOrdering Facility: [facility] Address:[address] [place], [place] [address]Performed By: #### 73029-8 ####[facility]ITALIA [id number] [place] [address] [place] eGFRcr SerPlBld CKD-EPI 174192 mL/min/1.73m???Normal>=60[facility] on above:Order Comment: Specimen Type: BLOOD SPECIMENOrdering Facility: [facility] Address:[address] [place], [place] [address]Result Comment: Estimated Glomerular Filtration Rate (eGFR) is calculated using the 2020 CKD-EPI creatinine equation. This equation utilizes serum creatinine, sex, and age as parameters. The creatinine assay has traceable calibration to isotope dilution-mass spectrometry. Refer to KDIGO guidelines for clinical interpretation. In patients with unstable renal function, e.g. those with acute kidney injury, the eGFR may not accurately reflect actual GFR. Performed By: #### 61380-5 ####[facility] LABCLIA [id number] [place] [address] [place] Glucose [Mass/Vol]73 mg/bQOgj54-90GzrohmkzgSum[facility] on above: Order Comment: Specimen Type: BLOOD SPECIMENOrdering Facility: [facility] Address:[address] [place], [place] [address]Result Comment: The [place] [employer] (ADA) provides guidance for cutoff values for fast ing glucose and random glucose. The ADA defines [...] Standards of Medical Care in Diabetes 2016, [place] [employer]. Diabetes Care. 2016.39(Suppl 1).Performed By: #### 29140-1 ####[facility] LABCLIA [id number] [place] [address] [place] AMERICAPotassium [Moles/Vol]4.4 mmol/L Normal3.7-5.1CKettering Health on above:Order Comment: Specimen Type: BLOOD SPECIMENOrdering Facility: [facility] Address:[address] [place], [place] [address]Performed By: #### 28502-6 ####[facility] LABCLIA [id number] [place] [address] [place] AMERICAProtein [Mass/Vol]7.6 g/dLNormal6.3-8.0[facility] on above:Order Comment: Specimen Type: BLOOD SPECIMENOrdering Facility: [facility] Address:[address] [place], [place] [address]Performed By: #### 77414-1 ####[facility] LABCLIA [id number] [place] [address] [place] Sodium [Moles/Vol]137 mmol/CQpdzko783-565PnfdvtnlkSumma Health [facility] on above:Order Comment: Specimen Type: BLOOD SPECIMENOrdering Facility: [facility] Address:[address] [place], [place] [address]Performed By: #### 62260-2 ####[facility] LABCLIA [id number] [address]ETUrea nitrogen [Mass/Vol]14 mg/dLNormal7-21[facility] on above:Order Comment: Specimen Type: BLOOD SPECIMENOrdering Facility: [facility] Address:[address] [place], [place] [address]Performed By: #### 85757- 8 ####[facility] LABIA [id number] [place] [id number] [facility] CENTERHISTORY PHYSICALon 06-26-2025 HISTORY PHYSICALHNO ID: [id number] Author: LOTUS CALLES APRN.SIGNS CLEANER Service: ? Author Type: Nurse Practitioner Type: [...] large neck Non-male patient STOP-Bang Score: 1 [id number] Score: Age: <65 Sex: female CHF history: No Hypertension history: Yes Stroke/TIA/thromboembolism history: No Vascular disease history: No Diabetes history: No [id number] Score: 2 ARISCAT Score: Age: <=50 Preoperative [...] Hutchinson present: no Lip Bite Test: II Microretrognathia/Micronagthia/Recessed Chin: No DENTAL Dental findings: teeth intact. [...] fevers. Neuro: No history of TIA's, stroke, MEDIA TECHNICIAN tumor, impaired sensorium, hemiplegia, paraplegia or quadraplegia. [...] or incontinence,, stones or chronic kidney disease RECORD CENTER COORDINATOR: Negative for abnormal vaginal bleeding, abnormal vaginal discharge. : Denies, Patient's last menstrual period was 01/16/2025. Endocrine: PCOS Hematology: No history of bleeding or clotting disorder. Pt is not taking anti-coagulation or platelet medications. No history of hematological symptoms or problems. Oncology: No (more content not included)...NormalTriHealth [facility] on 69-07-6514OXPIOypluz Visit (VER040) JANAY CRUZ ([id number]) 1995 F Date Time Provider Department 06/23/25 2:00 PM JANET MALCOLM [id number] During your visit today, we recorded the following information about you: Temperature Pulse Blood pressure Weight 97.2 degrees 66/minute 146/79 102 kg Height 1.626 m Janet Malcolm MD 06/23/2025 3:47 PM Signed SURGERY PREOPERATIVE VISIT NOTE Name: Janay Cruz Medical Record: [id number] Encounter No.: [id number] Janay Cruz is a 30 year old [...] regarding unsatisfactory weight loss as well as assisted weight regain. I have also discussed medical [...] tabletRfl: 1 senna-docusate (SENNA-S) (more content not included)...[facility] HospitalPNon 24-46-6127UJMIAbwlbrteb (GENOM) JANAY CRUZ ([id number]) 1995 F Date Time Provider Department 06/12/25 JANET MALCOLM During your visit today, we recorded the following information about you: Allergies As of Date: 06/12/2025 (No Known Allergies) Date Reviewed: 02/12/2025 Reviewed by: Laure Dhillon RD - Fully Assessed Reason for Visit: Scheduling Surgery [Other] Addiction Psychiatrist - Other [3602] Prescriptions as of 06/17/2025 [...] 01/11/2024 Encounter Status:Closed by CHRISTINA GARDNER on 06/17/25[facility] 40-69-3645PWNGOdlgbuyyq ([id number]) JANAY CRUZ ([id number]) 1995 F Date Time Provider Department 06/11/25 JANET MALCOLM [id number] During your visit today, we recorded the [...] are required as soon as possible. # [phone]. Thank you. Christina Hicks, JOSE DAVID 06/11/2025 4:05 PM Signed Returned call and informed patient that I would send her navigator an email to check on the status of the insurance approval. Patient understanding and thankful for call. Allergies As of Date: 06/11/2025 (No Known Allergies) Date Reviewed: 02/12/2025 Reviewed by: Laure Dhillon RD - Fully Assessed Reason for Visit: Addiction Psychiatrist - Other [3602] Returning Patient's Call [[phone]] [...] 01/11/2024 Encounter Status:Closed by CHRISTINA GARDNER on 06/11/25NoalCLicking Memorial HospitalRECURRENT VAGINITIS (HTRX)on 30-97-4901OHSNRAPFX FYNEQNL11.277Abnormal NOMS HealthcareATOPOBIUM VAGINAEDetectedAbnormalNOMS HealthcareBVAB 2,3 (BACTERIAL VAGINOSIS ASSOCIATED BACTERIA 2, 3); MOBILUNCUS [id number] Healthcare BVAB 2,3 (BACTERIAL VAGINOSIS ASSOCIATED BACTERIA 2, 3); MOBILUNCUS SPPNot detectedNOMS HealthcareCANDIDA ALBICANS, PARAPSILOSIS, EWXSFSHSIR7YBIX HealthcareCANDIDA ALBICANS, PARAPSILOSIS, TROPICALISNot detectedNOMS Healthcare KAYE [id number] HealthcareCANDIDA GLABRATANot detectedNOMS Healthcare KAYE [id number] HealthcareCANDIDA KRUSEINot detectedNOMS HealthcareCHLAMYDIA UYEOKNMXSNA7AOVY HealthcareCHLAMYDIA TRACHOMATISNot detectedNOMS Healthcare GARDNERELLA YASSIDIOV3DRMA HealthcareGARDNERELLA VAGINALISNot detectedNOMS HealthcareInterpretation and review of laboratory resultsAbnormalNOMS Healthcare MEGASPHAERA (TYPES 1, 2)0NOMS HealthcareMEGASPHAERA (TYPES 1, 2)Not detectedNOMS HealthcareMYCOPLASMA HWCNBFHRSQ4STOE HealthcareMYCOPLASMA GENITALIUMNot detectedNOMS HealthcareNEISSERIA GZNXOVUNZKP4UNCH HealthcareNEISSERIA GONORRHOEAENot detectedNOMS HealthcareTRICHOMONAS XMJXDGRWH7NHRX Healthcare TRICHOMONAS VAGINALISNot detectedNOMS HealthcareNOMS HealthcareCNCOon 05-13-2025 CNCOLetter TextNormDelaware County Hospitalon 31-44-7369ABODPdxobgukh (ENDOMN) JANAY CRUZ ([id number]) 1995 F Date Time Provider Department 03/10/25 SHANKAR BRITT ENDOMN During your visit today, we recorded the [...] approval up. She can be reached at [phone]. Jenelle Malhotra Restoration Officer II Endocrinology AND Metabolism [facility] F20 AND X20 Allergies As of Date: 03/10/2025 (No Known Allergies) Date Reviewed: 02/12/2025 Reviewed by: Laure Dhillon RD - Fully Assessed Reason for Visit: Patient Question [1477] Prescriptions as of 03/10/2025 - spironolactone (ALDACTONE) [...] 01/11/2024 Encounter Status:Closed by JENELLE MALHOTRA on 03/10/25NoEast Ohio Regional HospitalAmy 30-48-5796WFQEXfzwtztwk (GENBMI) JANAY CRUZ ([id number]) 1995 F Date Time Provider Department 02/24/25 [...] 01/11/2024 Encounter Status:Closed by BELINDA ASTUDILLO on 02/24/25[facility] US ABD RIGHT UPPER QUADRANTon 84-22-0594ZK ABD RIGHT UPPER QUADRANT* * *Final Report* * * DATE OF EXAM: Feb 05 2025 2:43PM U 1032 - US ABD RIGHT UPPER QUADRANT [...] 2. Cholelithiasis without evidence of acute cholecystitis. Commercial Lines Manager: PSCB Transcribe Date/Time: Feb 05 2025 5:32P Dictated by : JACINDA HILTON MD This examination was interpreted and the report reviewed and electronically signed by: JACINDA HILTON MD on Feb 05 2025 5:37PM EST [id number] Community HospitalXR CHEST 2V FRONTAL/LATon 59-71-0224OS CHEST 2V FRONTAL/LAT* * *Final Report* * * DATE OF [...] tissues: Unremarkable. IMPRESSION: No acute radiographic abnormality. Commercial Lines Manager: TIMMY Transcribe Date/Time: Feb 07 2025 10:50A Dictated by : JENNA BUSTAMANTE MD This examination was interpreted and the report reviewed and electronically signed by: JENNA BUSTAMANTE MD on Feb 07 2025 10:50AM EST [id number]. Joseph Hospital25([place])D3 [facility] - hydroxyvitamin D3 [Mass/Vol]32.8 ng/nGYgmnhe39.0-80.0Avon HospitalComment on above:Order Comment: Specimen Type: BLOOD SPECIMEN [facility] Facility[facility] Address: [address] [place], [place] [address]Result Comment: Classification of 25 [place] Vitamin D status: Deficiency/Insufficiency: < or = 30 ng/ml. Sufficiency/Optimal Levels: 31-80 ng/mL Toxicity: > 100 ng/mL. Test performed by chemiluminescent immunoassay.Performed By: #### 1989-3 #### [facility] CLIA [id number] [address] [place], [place] [address] [address] OF AMERICAMARSHALL [facility] W Auto Differential panel (Bld)on 60-75-5353Qcszimfvl (Bld) [#/Vol]0.07 10*3/uLNormal<0.11Avon HospitalComment on above:Order Comment: Specimen Type: BLOOD SPECIMEN [facility] Facility: [facility] Address: [address] [place], [place] [address]Performed By: #### 1988-12 #### [facility] CLIA [id number] [address] [place] [address] [place] AMERICABasophils/100 WBC (Bld)1.0 % NormalAvon HospitalComment on above:Order Comment: Specimen Type: BLOOD SPECIMEN [facility]ing Facility: [facility] Address: [address] [place], [place] [address]Performed By: #### 1988-12 #### [facility] CLIA [id number] [address] [place] [address] [place] AMERICADifferential cell count method Nom (Bld)AutoNormalAvon HospitalComment on above:Order Comment: Specimen Type: BLOOD SPECIMEN [facility]ing Facility: [facility] Address: [address] [place], [place] [address]Performed By: #### 1988-12 #### [facility] CLIA [id number] [address] [place] [address] [place] AMERICAEosinophils (Bld) [#/Vol] 0.29 10*3/uLNormal<0.46Avon HospitalComment on above:Order Comment: Specimen Type: BLOOD SPECIMEN [facility]ing Facility: [facility] Address: [address] [place], [place] [address]Performed By: #### 1988-12 #### [facility] CLIA [id number] [address] [place] [address] [place] AMERICAEosinophils/100 WBC (Bld)4.1 %NormalAvon HospitalComment on above:Order Comment: Specimen Type: BLOOD SPECIMEN [facility]ing Facility: [facility] Address: [address] [place], [place] [address]Performed By: #### 1988-12 #### [facility] CLIA [id number] [address] [place], [place] [address] [place] AMERICAErythrocyte distribution width (RBC) [Ratio]13.1 %Orpepd18.5-15.0Avon HospitalComment on above:Order Comment: Specimen Type: BLOOD SPECIMEN [facility]ing Facility: [facility] Address: [address] [place], [place] [address]Performed By: #### 1988-12 #### [facility] CLIA [id number] [address] [place] [address] [place] AMERICAHematocrit (Bld) [Volume fraction]42.8 %Zkcyfj61.0-46.0Avon HospitalComment on above:Order Comment: Specimen Type: BLOOD SPECIMEN [facility]ing Facility: [facility] Address: [address] [place], [place] [address]Performed By: #### 1988-12 #### [facility] CLIA [id number] [address] [place] [address] [place] AMERICAHemoglobin (Bld) [Mass/Vol] 13.8 g/jMVjoaeo94.5-15.5Avon HospitalComment on above:Order Comment: Specimen Type: BLOOD SPECIMEN [facility]ing Facility: [facility] Address: [address] [place], [place] [address]Performed By: #### 1988-12 #### [facility] CLIA [id number] [address] [place] [address] [place] AMERICAImmature granulocytes (Bld) [#/Vol]10*3/uLNormal<0.10Avon HospitalComment on above:Order Comment: Specimen Type: BLOOD SPECIMEN [facility]ing Facility: [facility] Address: [address] [place], [place] [address]Performed By: #### 1988-12 #### [facility] CLIA [id number] [address] [place] [address] [place] AMERICAImmature granulocytes/100 WBC (Bld)0.3 %NormalAvon HospitalComment on above:Order Comment: Specimen Type: BLOOD SPECIMEN [facility]ing Facility: [facility] Address: [address] [place], [place] [address]Performed By: #### 1988-12 #### [facility] CLIA [id number] [address] [place], [place] [address] [place] AMERICALymphocytes (Bld) [#/Vol] 2.40 10*3/uLNormal1.00-4.00Avon HospitalComment on above:Order Comment: Specimen Type: BLOOD SPECIMEN [facility]ing Facility: [facility] Address: [address] [place], [place] [address]Performed By: #### 1988-12 #### [facility] CLIA [id number] [address] [place], [place] [address] [place] AMERICALymphocytes/100 WBC (Bld) 34.3 %NormalAv HospitalComment on above:Order Comment: Specimen Type: BLOOD SPECIMEN [facility]ing Facility: [facility] Address: [address] [place], [place] [address]Performed By: #### 1988-12 #### [facility] CLIA [id number] [address] [place] [address] (RBC) [Entitic mass]27.7 ehSjzsge21.0-34.0Av HospitalComment on above:Order Comment: Specimen Type: BLOOD SPECIMEN [facility]ing Facility: [facility] Address: [address] [place], [place] [address]Performed By: #### 1988-12 #### [facility] CLIA [id number] [address] [place], [place] [address] [facility] CENTERMCHC (RBC) [Mass/Vol]32.2 g/kIVswazq71.5-36.0Av HospitalComment on above:Order Comment: Specimen Type: BLOOD SPECIMEN [facility]ing Facility: [facility] Address: [address] [place], [place] [address]Performed By: #### 1988-12 #### [facility] CLIA [id number] [address] [place], [place] [address] [facility] (RBC) [Entitic vol]85.9 vYKvsbyt61.0-100.0Avon HospitalComment on above:Order Comment: Specimen Type: BLOOD SPECIMEN Ordering Facility: [facility] Address: [address] [place], [place] [address]Performed By: #### 1988-12 #### [facility] CLIA [id number] [address] [place], [place] [address] [place] AMERICAMonocytes (Bld) [#/Vol]0.59 10*3/uLNormal<0.87Avon HospitalComment on above:Order Comment: Specimen Type: BLOOD SPECIMEN [facility]ing Facility: [facility] Address: [address] [place], [place] [address]Performed By: #### 1988-12 #### [facility] CLIA [id number] [address] [place], [place] [address] [place] AMERICAMonocytes/100 WBC (Bld)8.4 % NormalAvon HospitalComment on above:Order Comment: Specimen Type: BLOOD SPECIMEN Ordering Facility: [facility] Address: [address] [place], [place] [address]Performed By: #### 1988-12 #### [facility] CLIA [id number] [address] [place] [address] [place] AMERICANeutrophils (Bld) [#/Vol] 3.62 10*3/uLNormal1.45-7.50Avon HospitalComment on above:Order Comment: Specimen Type: BLOOD SPECIMEN Ordering Facility: [facility] Address: [address] [place], [place] [address]Performed By: #### 1988-12 #### [facility] CLIA [id number] [address] [place], [place] [address] [place] AMERICANeutrophils/100 WBC (Bld) 51.9 %NormalAvon HospitalComment on above:Order Comment: Specimen Type: BLOOD SPECIMEN Ordering Facility: [facility] Address: [address] [place], [place] [address]Performed By: #### 1988-12 #### [facility] CLIA [id number] [address] [place], [place] [address] [place] AMERICANucleated RBC (Bld) [#/Vol] 10*3/uLNormal<0.01Avon HospitalComment on above:Order Comment: Specimen Type: BLOOD SPECIMEN Ordering Facility: [facility] Address: [address] [place], [place] [address]Performed By: #### 1988-12 #### [facility] CLIA [id number] [address] [place], [place] [address] [place] AMERICANucleated RBC/100 WBC (Bld) [Ratio]0.0 /100 WBCNormalAvon HospitalComment on above:Order Comment: Specimen Type: BLOOD SPECIMEN Ordering Facility: [facility] Address: [address] [place], [place] [address]Performed By: #### 1988-12 #### [facility] CLIA [id number] [address] [place] [address] [place] AMERICAPlatelet mean volume (Bld) [Entitic vol]10.3 fLNormal9.0-12.7Avon HospitalComment on above:Order Comment: Specimen Type: BLOOD SPECIMEN Ordering Facility: [facility] Address: [address] [place], [place] [address]Performed By: #### 1988-12 #### [facility] CLIA [id number] [address] [place], [place] [address] [place] AMERICAPlatelets (Bld) [#/Vol]287 10*3/eBEcapfg251-960Btkq HospitalComment on above:Order Comment: Specimen Type: BLOOD SPECIMEN Ordering Facility: [facility] Address: [address] [place], [place] [address]Performed By: #### 1988-12 #### [facility] CLIA [id number] [address] [place], [place] [address] [place] AMERICARBC (Bld) [#/Vol]4.98 10*6/uLNormal3.90-5.20Av HospitalComment on above:Order Comment: Specimen Type: BLOOD SPECIMEN Ordering Facility: [facility] Address: [address] [place], [place] [address]Performed By: #### 1988- #### [facility] CLIA [id number] [address] [place] [address] AMERICAWBC (Bld) [#/Vol]6.99 10*3/uLNormal3.70-11.00Av HospitalComment on above:Order Comment: Specimen Type: BLOOD SPECIMEN Ordering Facility: [facility] Address: [address] [place], [place] [address]Performed By: #### 1988- #### [facility] CLIA [id number] [address] [place], [place] [address]CNOVon 70-21-7577NTEQQxrnrh Visit (CARDAV) TAMJANAY WASHINGTON ([id number]) 1995 F Date Time Provider Department 01/28/25 11:00 AM NURSE CARD [facility] JUAREZ KNOX During your visit today, we recorded the following information about you: Karlee Nunez, JOSE DAVID 01/28/2025 11:15 AM Signed OUTPATIENT VISIT TYPE NURSE VISIT PATIENT NAME: Janay Cruz DATE OF SERVICE: 01/28/2025 PRIMARY EMS DRIVER: n/a Janay Cruz is a 29 year [...] 2025 11:14 AM Referring Provider: SHANKAR BRITT [[id number]] Allergies As of Date: 01/28/2025 (No Known Allergies) Date Reviewed: 01/23/2025 Reviewed by: Laure Dhillon RD - Fully Assessed Reason for Visit: Nurse Visit [792] Visit Diagnosis:Encounter for other preprocedural examination [Z01.818] Order(s):ECG COMPLETE [ECG01] Order #: [id number]. #:[id number]--FHRBcao Prescriptions as of 01/28/2025 - spironolactone (ALDACTONE) [...] 01/11/2024 Encounter Status:Closed by KARLEE NUNEZ on 01/28/25NoalCLicking Memorial HospitalComprehensive metabolic 2000 panelon 57-41-8197Dfftxof [Mass/Vol]4.4 g/dLNormal3.9-4.9Avon HospitalComment on above:Order Comment: Specimen Type: BLOOD SPECIMEN Ordering Facility: [facility] Address: [address] [place], [place] [address]Fnqjqxxpc By: #### 41682-3, 59319- 1, 94632-8, 3016-3 #### [facility] CLIA [id number] [address] [place] [address] [place] OF AMERICAALP [Catalytic activity/Vol]79 U/LNormal 34-123Kearsarge HospitalComment on above:Order Comment: Specimen Type: BLOOD SPECIMEN Ordering Facility: [facility] Address: [address] [place], [place] [address]Performed By: #### 75487-7, 69878- 1, 83350-5, 3016-3 #### [facility] CLIA [id number] [address] [place] [address] [place] AMERICAALT [Catalytic activity/Vol]176 U/LHigh 7-38Av HospitalComment on above:Order Comment: Specimen Type: BLOOD SPECIMEN Ordering Facility: [facility] Address: [address] [place], [place] [address]Performed By: #### 83618-1, 26567- 1, 42652-1, 3016-3 #### [facility] CLIA [id number] [address] [place] [address] [place] AMERICAAnion gap [Moles/Vol]9 mmol/LNormal8-15 [facility]arge HospitalComment on above:Order Comment: Specimen Type: BLOOD SPECIMEN Ordering Facility: [facility] Address: [address] [place], [place] [address]Performed By: #### 07317-9, 46826- 1, 84689-8, 3016-3 #### [facility] IA [id number] [address] [place] [address] [place] AMERICAAST [Catalytic activity/Vol]60 U/LHigh 13-35Kearsarge HospitalComment on above:Order Comment: Specimen Type: BLOOD SPECIMEN Ordering Facility: [facility] Address: [address] [place] [address]Iunocgsuk By: #### 97994-1, 96201- 1, 52662-6, 3016-3 #### [facility] CLIA [id number] [address] [place] [address] [place] AMERICABilirubin [Mass/Vol]0.6 mg/dLNormal 0.2-1.3Avo HospitalComment on above:Order Comment: Specimen Type: BLOOD SPECIMEN Ordering Facility: [facility] Address: [address] [place] [address]Nhyjmpwnp By: #### 10938-2, 53675- 1, 20492-9, 3016-3 #### [facility] CLIA [id number] [address] [place] [address] [place] AMERICACalcium [Mass/Vol]9.5 mg/dLNormal8.5-10.2 [facility]arge HospitalComment on above:Order Comment: Specimen Type: BLOOD SPECIMEN Ordering Facility: [facility] Address: [address] [place], [place] [address]Performed By: #### 73734-7, 06504- 1, 33951-4, 3016-3 #### [facility] CLIA [id number] [address] [place] [address] [place] OF AMERICAChloride [Moles/Vol]107 mmol/LNormal 98-107Av HospitalComment on above:Order Comment: Specimen Type: BLOOD SPECIMEN Ordering Facility: [facility] Address: [address] [place] [address]Pbudkpjkr By: #### 91380-3, 75439- 1, 00642-0, 3016-3 #### [facility] CLIA [id number] [address] [place] [address] [place] AMERICACO2 [Moles/Vol]25 mmol/XDznkal71-56Xoks HospitalComment on above:Order Comment: Specimen Type: BLOOD SPECIMEN Ordering Facility: [facility] Address: [address] [place] [address]Fwphsukms By: #### 40677-5, 80526- 1, 07153-8, 3016-3 #### [facility] CLIA [id number] [address] [place] [address] [place] AMERICACreatinine [Mass/Vol]0.79 mg/dLNormal 0.58-0.96Av HospitalComment on above:Order Comment: Specimen Type: BLOOD SPECIMEN Ordering Facility: [facility] Address: [address] [place], [place] [address]Performed By: #### 13650-1, 47679- 1, 28238-6, 3016-3 #### [facility] CLIA [id number] [address] [place] [address] [place] AMERICACreatinine and Glomerular filtration rate.predicted panel (S/P/Bld)103 mL/min/1.73m???Normal>=60Tooele Valley HospitalComment on above:Order Comment: Specimen Type: BLOOD SPECIMEN Ordering Facility: [facility] Address: [address] [place] [address]Vercms Comment: Estimated Glomerular Filtration Rate (eGFR) is calculated using the 2020 CKD-EPI cre atinine equation. This equation utilizes serum creatinine, sex, and age as parameters. The creatinine assay has traceable calibration to isotope dilution- mass spectrometry. Refer to KDIGO guidelines for clinical interpretation. In patients with unstable renal function, e.g. those with acute kidney injury, the eGFR may not accurately reflect actual GFR.Performed By: #### 12192-1, 36372-1, 08256-6, 3016-3 #### [facility] CLIA [id number] [address] [place] [address] [place] AMERICAGlucose [Mass/Vol]100 mg/cBAtgn00-49Yaxh HospitalComment on above:Order Comment: Specimen Type: BLOOD SPECIMEN Ordering Facility: [facility] Address: [address] [place] [address]Dtujxc Comment: The [place] Diabetes Association (ADA) provides guidance for cutoff [...] Standards of Medical Care in Diabetes 2016, [place] [employer] Association. Diabetes Care. 2016.39(Suppl 1).Performed By: #### 18057-5, 40742- 1, 93924-3, 3016-3 #### [facility] CLIA [id number] [address] [place] [address] [place] AMERICAPotassium [Moles/Vol]4.3 mmol/LNormal 3.7-5.1Avirtua [facility] HospitalComment on above:Order Comment: Specimen Type: BLOOD SPECIMEN Ordering Facility: [facility] Address: [address] [place], [place] [address]Performed By: #### 91480-3, 12481- 1, 35192-5, 3016-3 #### [facility] CLIA [id number] [address] [place] [address] [place] AMERICAProtein [Mass/Vol]7.1 g/dLNormal6.3-8.0 [facility]arge HospitalComment on above:Order Comment: Specimen Type: BLOOD SPECIMEN Ordering Facility: [facility] Address: [address] [place], [place] [address]Performed By: #### 04774-1, 80334- 1, 89494-6, 6-3 #### [facility] IA [id number] [address] [place] [address] [place] AMERICASodium [Moles/Vol]141 mmol/VTdkbya726-204 Kearsarge HospitalComment on above:Order Comment: Specimen Type: BLOOD SPECIMEN Ordering Facility: [facility] Address: [address] [place], [place] [address]Performed By: #### 55914-0, 90075- 1, 08461-7, 3016-3 #### [facility] IA [id number] [address] [place] [address] [place] AMERICAUrea nitrogen [Mass/Vol]12 mg/dLNormal 7-21Kearsarge HospitalComment on above:Order Comment: Specimen Type: BLOOD SPECIMEN Ordering Facility: [facility] Address: [address] [place], [place] [address]Performed By: #### 10060-5, 39919- 1, 50828-5, 3016-3 #### [facility] CLIA [id number] [address] [place] [address] [place] OF AMERICAECG COMPLETEon 35-46-9118Pbvrkx Cmlw59RYY [facility] Medical CenterCalculated P Ewjo27zzgowzmXbobitjze ClinicCalculated R Axis72 degreesKettering Health Behavioral Medical CenterCalculated T [place]-3degreesKettering Health Behavioral Medical CenterP-R Twmaymkr584 msCleveland ClinicQRS Ghqjfrcz79 msCleveland ClinicQT Wvseysbs373 msCleveland ClinicQTC Calculation (Bazett)411 msCleveland ClinicVentricular Vwgo80EYR [facility] HospitalINUS BRADYCARDIA ABNORMAL QRS-T ANGLE, CONSIDER PRIMARY T WAVE ABNORMALITY ABNORMAL ECG Confirmed by SLOANE BARFIELD MD ([id number]) on 01/28/2025 1:37:02 PMMETROHEALTH PARMA MED[facility] CENTERRT AND VASCULAR INSTITUTENAME : JANAY CRUZ PID : [id number] : 1995 Gender : Female Race : Unknown ORD : [id number] Procedure Date : Jan 28 2025 11:12:00 Edit Date : Jan 28 2025 13:37:03 Diagnosis: SINUS BRADYCARDIA ABNORMAL QRS-T ANGLE, CONSIDER PRIMARY T WAVE ABNORMALITY ABNORMAL ECG Confirmed by SLOANE BARFIELD MD ([id number]) on 01/28/2025 1:37:02 PM Test Reason : Location : 192 : [facility] Overread By : SLOANE BARFIELD MD Edited By : SLOANE BARFIELD MD Referred By : SHANKAR BRITT Acquired by : ,HEART AND VASCULAR INSTITUTEKettering Health Behavioral Medical CenterEC COMPLETE Ventricular Rate : 52 BPM Atrial Rate : 52 BPM P-R Interval : 150 ms QRS Duration : 88 ms Q-T Interval : 442 ms QTC Calculation(Bazett) : 411 ms Calculated P [place] : 44 degrees Calculated R [place] : 72 degrees Calculated T [place] : -3 degrees SINUS BRADYCARDIA ABNORMAL QRS-T ANGLE, CONSIDER PRIMARY T WAVE ABNORMALITY ABNORMAL ECG Confirmed by SLOANE BARFIELD MD ([id number]) on 01/28/2025 1:37:02 PM NAME : JANAY CRUZ PID : [id number] : 1995 Gender : Female Race : Unknown ORD : [id number] Procedure Date : Jan 28 2025 11:12:00 Edit Date : Jan 28 2025 13:37:03 Diagnosis: SINUS BRADYCARDIA ABNORMAL QRS-T ANGLE, CONSIDER PRIMARY T WAVE ABNORMALITY ABNORMAL ECG Confirmed by SLOANE BARFIELD MD ([id number]) on 01/28/2025 1:37:02 PM Test Reason : Location : 192 : AVCRD Overread By : SLOANE BARFIELD MD Edited By : SLOANE BARFIELD MD Referred By : SHANKAR BRITT Acquired by : ,NormalKettering Health Behavioral Medical Center ClevelandFerritin SerPl-mCncon 01-28-2025 Ferritin [Mass/Vol]180.7 ng/zTPffshv51.7-205.1Avon HospitalComment on above: Order Comment: Specimen Type: BLOOD SPECIMEN Ordering Facility: [facility] Address: [address] [place], [place] [address]Performed By: #### 2276-4, 57647-0 #### [facility] CLIA [id number] [address] [place] [address] [place] AMERICAFolate SerPl-mCncon 76-39-8588Jsicgu [Mass/Vol]12.2 ng/mLNormal>4.7Avon HospitalComment on above:Order Comment: Specimen Type: BLOOD SPECIMEN Ordering Facility: [facility] Address: [address] [place], [place] [address]Performed By: #### 1989-3 #### [facility] CLIA [id number] [address] [place] [address] STATES OF TLMQOKNGpU4y (Bld)on 01-28-2025 Average glucose Estimated from glycated hemoglobin (Bld) [Mass/Vol]97 mg/dL NormalAv HospitalComment on above:Order Comment: Specimen Type: BLOOD SPECIMEN Ordering Facility: [facility] Address: [address] [place], [place] [address]Result Comment: eAG: (Estimated average glucose) is a calculated value from HgbA1c and is promotions representative of the average blood glucose level in the last 2-3 month period.Performed By: #### 86155-7 #### [facility] CLIA [id number] [address] [place] [address] [place] VWMLWQAYgZ3t (Bld) [Mass fraction] 5.0 %Normal4.3-5.6Avon HospitalComment on above:Order Comment: Specimen Type: BLOOD SPECIMEN Ordering Facility: [facility] Address: [address] [place], [place] [address]Result Comment: [place] Diabetes Association guidelines indicate that patients with HgbA1c in the range 5.7-6.4% are at increased risk for development of diabetes, and intervention by lifestyle modification may be beneficial. HgbA1c greater or equal to 6.5% is considered diagnostic of diabetes.Performed By: #### 21340-8 #### [facility] CLIA [id number] [address] [place] [address] [place] OF AMERICAIron and Iron binding capacity panelon 72-91-9598Rexa [Mass/Vol]65 ug/yKIgdkgp75-839Jfnp Hospital Comment on above:Order Comment: Specimen Type: BLOOD SPECIMEN Ordering Facility: [facility] Address: [address] [place], [place] [address]Performed By: #### 24018-7, 23496- 1, 09179-8, 3016-3 #### [facility] CLIA [id number] [address] [place] [address] [place] AMERICAIron binding capacity [Mass/Vol]308 ug/dL Ppedjn473-958Mlpk HospitalComment on above:Order Comment: Specimen Type: BLOOD SPECIMEN Ordering Facility: [facility] Address: [address] [place], [place] [address]Performed By: #### 06141-6, 50137- 1, 42453-6, 3016-3 #### [facility] CLIA [id number] [address] [place] [address] [place] AMERICAIron/TIBC [Molar ratio]21.1 %Normal 15.0-57.0Av HospitalComment on above:Order Comment: Specimen Type: BLOOD SPECIMEN Ordering Facility: [facility] Address: [address] [place], [place] [address]Performed By: #### 59849-8, 14590- 1, 06202-5, 3016-3 #### [facility] CLIA [id number] [address] [place] [address] [place] AMERICALipid 1996 panelon 26-10-6371Rgbdjskqqvn [Mass/Vol]170 mg/dLNormal<200Avon HospitalComment on above:Order Comment: Specimen Type: BLOOD SPECIMEN Ordering Facility: [facility] Address: [address] [place] [address]Udjjld Comment: <200 mg/dL, Desirable 200-239 mg/dL, Borderline high >239 mg/dL, HighPerformed By: #### 31360-0, 08871-0, 07913-0, 3016-3 #### [facility] CLIA [id number] [address] [place] [address] [place] AMERICACholesterol in HDL [Mass/Vol]35 mg/dLLow >39Avon HospitalComment on above:Order Comment: Specimen Type: BLOOD SPECIMEN Ordering Facility: [facility] Address: [address] [place] [address]Vhomwa Comment: 40-59 mg/dL, Acceptable >59 mg/dL, High: Negative risk factor for coronary heart disease <40 mg/dL, Low: Positive risk factor for coronary heart diseasePerformed By: #### 59227-8, 62247-3, 73554-7, 3016-3 #### [facility] CLIA [id number] [address] [place] [address] [place] AMERICACholesterol in LDL [Mass/Vol]98 mg/dL Normal<100Avon HospitalComment on above:Order Comment: Specimen Type: BLOOD SPECIMEN Ordering Facility: [facility] Address: [address] [place] [address]Izedee Comment: <100 mg/dL, Optimal 100-129 mg/dL, Near optimal/above optimal 130-159 mg/dL, Borderline high 160-189 mg/dL, High >189 mg/dL, Very high Secondary prevention optimal LDL Cholesterol levels are recommended to be < 70 mg/dLPerformed By: #### 57845-4, 18162-8, 42220-3, 3016-3 #### [facility] CLIA [id number] [address] [place] [address] [place] AMERICACholesterol in LDL/Cholesterol in HDL [Mass ratio]2.80 {ratio}High<2.54Avon HospitalComment on above:Order Comment: Specimen Type: BLOOD SPECIMEN Ordering Facility: [facility] Address: [address] [place] [address]Khnfpu Comment: Reference: 1. National Cholesterol Education Program ATP III Guideline At-A-Glance Quick Desk Reference: National Heart, Lung, and Blood [place]. National Institutes of Health. 2001: NIH Publication No. 01-3305. 2. An International Atherosclerosis Society position paper: global recommendations for the management of dyslipidemia: executive summary, Atherosclerosis. 2014: 232(2):410-413.Performed By: #### 20340-4, 69363-1, 95395-7, 3016-3 #### [facility] CLIA [id number] [address] [place] [address] [place] AMERICACholesterol in VLDL [Mass/Vol]37 mg/dL High<30Avon HospitalComment on above:Order Comment: Specimen Type: BLOOD SPECIMEN Ordering Facility: [facility] Address: [address] [place], [place] [address]Performed By: #### 37564-3, 64920- 1, 13926-9, 3016-3 #### [facility] CLIA [id number] [address] [place] [address] [place] AMERICACholesterol non HDL [Mass/Vol]135 mg/dL High<130Avon HospitalComment on above:Order Comment: Specimen Type: BLOOD SPECIMEN Ordering Facility: [facility] Address: [address] [place] [address]Kfyrwy Comment: <130 mg/dL, Optimal 130-159 mg/dL, Near optimal/above optimal 160-189 mg/dL, Borderline high 190-219 mg/dL, High >219 mg/dL, Very high Secondary prevention optimal non HDL Cholesterol levels are recommended to be <100 mg/dLPerformed By: #### 52336-1, 74712-4, 49882-9, 3016-3 #### [facility] CLIA [id number] [address] [place] [address] [place] AMERICACholesterol.total/Cholesterol in HDL [Mass ratio]4.86 {ratio}Normal<5.10[facility] HospitalComment on above:Order Comment: Specimen Type: BLOOD SPECIMEN Ordering Facility: [facility] Address: [address] [place], [place] [address]Performed By: #### 63991-0, 28328- 1, 98283-6, 3016-3 #### [facility] CLIA [id number] [address] [place] [address] [place] OF AMERICAFASTING TIME12 [facility] Comment on above:Order Comment: Specimen Type: BLOOD SPECIMEN Ordering Facility: [facility] Address: [address] [place], [place] [address]Performed By: #### 74288-9, 87349- 1, 29990-7, 3016-3 #### [facility] CLIA [id number] [address] [place] [address] [place] AMERICATriglyceride [Mass/Vol]187 mg/dLHigh<150 Shirin HospitalComment on above:Order Comment: Specimen Type: BLOOD SPECIMEN Ordering Facility: [facility] Address: [address] [place], [place] [address]Result Comment: <150 mg/dL, Normal 150-199 mg/dL, Borderline high 200-499 mg/dL, High >499 mg/dL, Very highPerformed By: #### 88259-2, 41456-2, 07401-4, 3016-3 #### [facility] CLIA [id number] [address] [place] [address] [place] AMERICANT-proBNP [facility] 01-28-2025 Natriuretic peptide.B prohormone N-Terminal [Mass/Vol]36 pg/mLNormal<125Av HospitalComment on above:Order Comment: Specimen Type: BLOOD SPECIMEN Ordering Facility: [facility] Address: [address] [place], [place] [address]Performed By: #### 2276-4, 55518-7 #### [facility] CLIA [id number] [address] [place] [address] [place] [facility]ALTH SYSTEMTS SerPl-aCncon 02-61-0389JGY Qn1.180 m[IU]/LNormal0.270-4.200Tooele Valley HospitalComment on above:Order Comment: Specimen Type: BLOOD SPECIMEN Ordering Facility: [facility] Address: [address] [place], [place] [address]Zummhs Comment: If the patient is , TSH reference range varies by gestational period: First Trimester (weeks 9-12): 0.180-2.990 mIU/L Second Trimester: 0.110-3.980 mIU/L Third Trimester: 0.480-4.710 mIU/L Polo Hussein et al. A Practical Approach for the Verifications and Determination of Site- and Trimester-Specific Reference Intervals for Thyroid Function tests in . Thyroid, 2019:29:3:412-420.Gabriel Marquis, et al. 2017 Guidelines of the [place] Thyroid Association for the Diagnosis and Management of Thyroid Disease during and the . Thyroid, 2017:27:3:315-389. Performed By: #### 62524-1, 78358-4, 73834-4, 3016-3 #### [facility] CLIA [id number] [address] [place] [id number] [place] OF AMERICAVITAMIN B1 (THIAMINE), WHOLE BLOODon 35-18-9005Qarxrtkv (Bld) [Moles/Vol]137.0 nmol/DZitkjc38.3-213.3AGunnison Valley Hospital Comment on above:Order Comment: Specimen Type: BLOOD SPECIMEN Ordering Facility: [facility] Address: [address] [place], [place] [address]Svrcky Comment: This assay measures the concentration of thiamine diphosphate (TDP), the primary active form of vitamin B1. Approximately 90 percent of vitamin B1 present in whole blood is TDP. Thiamine and thiamine monophosphate, which comprise the remaining 10 percent, are not measured. This test was developed, and its performance characteristics determined by the [facility] Department of Pathology and Laboratory Medicine. It has not been cleared or approved by the FDA. The [facility] Department of Pathology and Laboratory Medicine is regulated under CLIA as qualified to perform high-complexity testing. This test is used for clinical purposes. It should not be regarded as investigational or for research.Performed By: #### B1WB #### [facility] CLIA [id number] [address] [place] [address] [place] AMERICAVit B12 SerPl-mCncon 32-09-8753Lxfmxblbn (Vitamin B12) [Mass/Vol]587 pg/gVEewfrn000-8820Eqpb [facility] Comment on above:Order Comment: Specimen Type: BLOOD SPECIMEN Ordering Facility: [facility] Address: [address] [place], [place] [address]Performed By: #### 1989-3 #### [facility] CLIA [id number] [address] [place] [address] [place] AMERICACNOVon 53-34-5100OYIZEywoxs Visit (GENBMI) JANAY CRUZ ([id number]) 1995 F Date Time Provider Department 01/21/25 [...] lose weight - Phentermine x 1 year (9207-7165): Lost 10 pounds but made her jittery [...] denies Exercise Active at home as a jzyn-mm-nvuz mom of 4 children Regular exercise: No, [...] PCOS (polycystic ovarian syndrome) No history of NC, or CVA. No history of T2DM or [...] persistent diarrhea or cons (more content not included)...NormalOhiohealth XR Chest PA and Lateralon 11-98-6638Oipcljsci ClinicBasophils Auto (Bld) [#/Vol] Ordered By: FELY WOOD on 55-12-0688Welgcwres (Bld) [#/Vol]0.0 10*3/uL 0.0-0.2FLima City HospitalBasophils/100 WBC Auto (Bld)Ordered By: FELY WOOD on 40-22-3008Hpneilxwx/100 WBC (Bld)0.3 %.[facility] HospitalBlood hemoglobin measurement (mass/volume)Ordered By: FELY WOOD on 14-25-8782Akwvztxabo (Bld) [Mass/Vol]11.9 g/dL11.8-15.4FLima City HospitalBlood leukocytes automated count (number/volume)Ordered By: FELY WOOD on 62-06-2744PZE (Bld) [#/Vol]14.8 10*3/uL4.5-11.0[facility] Brent[facility] HospitalEosinophils Auto (Bld) [#/Vol]Ordered By: FELY WOOD on 07-01-0354Ojihwkagqnk (Bld) [#/Vol]0.1 10*3/uL0.0-0.45[facility] HospitalEosinophils/100 WBC Auto (Bld)Ordered By: FELY WOOD on 29-89-3573Pgvdpudhmnw/100 WBC (Bld)0.4 %.[facility] Brent[facility] HospitalErythrocyte distribution width Auto (RBC) [Ratio]Ordered By: FELY WOOD on 24-56-8035Nadpgjqoecq distribution width (RBC) [Ratio]14.3 % 11.9-15.3FLima City HospitalHematocrit Auto (Bld) [Volume fraction]Ordered By: FELY WOOD on 64-61-2479Zjjupjkktv (Bld) [Volume fraction]35.6 %34.0-46.4FLima City HospitalLaboratory - Hematology and Cell countsOrdered By: FELY WOOD on 26-60-6901Pjlwnioon RBC/100 WBC (Bld) [Ratio]0.0 %0-0.5FLima City HospitalLymphocytes Auto (Bld) [#/Vol]Ordered By: FELY WOOD on 66-57-9408Wvwkeqrnpnk (Bld) [#/Vol]2.6 10*3/uL1.00-4.8[facility] Brent[facility] HospitalLymphocytes/100 WBC Auto (Bld) Ordered By: FELY WOOD on 26-74-6224Wsrqeilrxki/100 WBC (Bld)17.3 %. [facility] HospitalMCH Auto (RBC) [Entitic mass]Ordered By: FELY WOOD on 87-52-1470JSZ (RBC) [Entitic mass]28.0 pg24.7-34.3FLima City HospitalMCHC Auto (RBC) [Mass/Vol]Ordered By: FELY WOOD on 66-09-8402MQUE (RBC) [Mass/Vol]33.3 g/dL32.0-35.0[facility] HospitalMCV Auto (RBC) [Entitic vol]Ordered By: FELY WOOD on 59-71-6437GLP (RBC) [Entitic vol]84.0 jS71-790LdhcnmwxzSuburban Community Hospital & Brentwood HospitalMonocytes Auto (Bld) [#/Vol]Ordered By: FELY WOOD on 67-41-4503Tihuqvnjw (Bld) [#/Vol] 1.2 10*3/uL0.0-0.8[facility] HospitalMonocytes/100 WBC Auto (Bld) Ordered By: FELY WOOD on 15-00-6937Rdgljlhkt/100 WBC (Bld)8.0 %.[facility] HospitalNeutrophils Auto (Bld) [#/Vol]Ordered By: FELY WOOD on 10-14-6778Uuqkvnopyyh (Bld) [#/Vol]11.0 10*3/uL1.8-7.7FLima City HospitalNeutrophils/100 WBC Auto (Bld)Ordered By: FELY WOOD on 03-56-2058Ypholjglhci/100 WBC (Bld)74.0 %.[facility] HospitalPlatelet mean volume Auto (Bld) [Entitic vol]Ordered By: FELY WOOD on 33-20-7764Nkiahybs mean volume (Bld) [Entitic vol]9.0 fL6.3-10.7 [facility] HospitalPlatelets Auto (Bld) [#/Vol]Ordered By: FELY WOOD on 06-77-0041Taroyvjdx (Bld) [#/Vol]239 10*3/mY811-072IagtxksduSuburban Community Hospital & Brentwood HospitalRBC Auto (Bld) [#/Vol]Ordered By: FELY WOOD on 98-75-1580NIS (Bld) [#/Vol]4.23 10*6/uL3.60-5.00[facility] HospitalAmphetamine Screen Ql (U)Ordered By: FELY WOOD on 05-04-2022 Amphetamines Ql (U)NegativeNegTrinity Health System East CampusBarbiturates [Presence] in UrineOrdered By: FELY WOOD on 16-21-0889Gqdboexiyyqu Ql (U)NegativeNegTrinity Health System East CampusBenzodiazepines [Presence] in UrineOrdered By: FELY WOOD on 08-30-5421Hqxrzgtcondmxtk Ql (U)Negative NegativeSuburban Community Hospital & Brentwood HospitalBilirubin Test strip Ql (U)Ordered By: FELY WOOD on 96-03-8149Ciebrykfl Ql (U)NegativeNegTrinity Health System East CampusCOVID-19 SOFIAOrdered By: FELY WOOD on 05-04-2022 SARS-CoV+SARS-CoV-2 (COVID-19) Ag IA.rapid Ql (Resp)NegativeNegTrinity Health System East CampusComment on above:This is a duplicate Jacqueline SARS Antigen (MLAENA) result to be used for statistical tracking purpose only.Color Auto (U) Ordered By: FELY WOOD on 65-32-3811Xvrak (U)YellowYellowSuburban Community Hospital & Brentwood HospitalKetones Auto test strip (U) [Mass/Vol]Ordered By: FELY WOOD on 11-57-6552Xskomcp (U) [Mass/Vol]4+NegativeSuburban Community Hospital & Brentwood HospitalLaboratory - Drug toxicologyOrdered By: FELY WOOD on 16-90-6909Ilbvsix Ql (U)NegativeNegTrinity Health System East CampusNitrite Test strip Ql (U)Ordered By: FELY WOOD on 14-51-9880Dwymxtu Ql (U) NegativeNegTrinity Health System East CampusNo Panel InformationOrdered By: FELY WOOD on 46-63-6213BHNA Antigen (LFIA)[facility] HospitalPhencyclidine Screen Ql (U)Ordered By: FELY WOOD on 05-04-2022 Phencyclidine Ql (U)NegativeNegativeSuburban Community Hospital & Brentwood HospitalComment on above:These are unconfirmed results and should not be used for legal purposes. Drug Cut-Off Concentration: AMPH 1000 ng/mL ARCHIE 200 ng/mL VAIBHAV 200 ng/mL COCM 300 ng/mL OP 300 ng/mL PCP 25 ng/mLProtein Auto test strip (U) [Mass/Vol]Ordered By: FELY WOOD on 17-35-8910Wtbkdkj (U) [Mass/Vol]NegativeNegativeSuburban Community Hospital & Brentwood HospitalReagin Ab [Presence] in Serum by RPROrdered By: FELY WOOD on 60-80-0298Tvocsx Ab RPR Ql (S)Non-ReactiveNon ReactiveSuburban Community Hospital & Brentwood HospitalComment on above:Performed at: [address] [id number] [employer] Material: Mian Murcia PhD, Phone: [phone] or plasma glucose measurement (mass/volume)Ordered By: FELY WOOD on 08-87-7686Olybujn [Mass/Vol]97 mg/fP60-181EcskckrziSuburban Community Hospital & Brentwood HospitalComment on above:ADA recommended reference range Random Glucose Reference Range is dependent on time and content of last meal. Glucose of more than 200 mg/dL in a nonstressed, ambulatory subject supports the diagnosis of Diabetes Mellitus.Specific gravity Auto test strip (U) [Rel density]Ordered By: FELY WOOD on 77-97-0344Vwmjmqgh gravity (U) [Rel density]1.0211.001-1.030[facility] HospitalUrine clarity by refractometry automatedOrdered By: FELY WOOD on 89-50-4760Prcwxfy Refractometry automated (U)ClearCleMercy Health Allen HospitalUrine cocaine detectionOrdered By: FELY WOOD on 38-98-7333Gupndvd Ql (U) NegativeNegTrinity Health System East CampusUrine glucose measurement by automated test strip (mass/volume)Ordered By: FELY WOOD on 05-04-2022 Glucose Auto test strip (U) [Mass/Vol]Normal mg/dLNormalSuburban Community Hospital & Brentwood HospitalUrine hemoglobin detection by automated test stripOrdered By: FELY WOOD on 08-22-0535Hydkkhwqez Auto test strip Ql (U)NegativeNegative [facility] HospitalUrine leukocyte esterase detection by automated test stripOrdered By: FELY WOOD on 98-93-2601Ykrcgqrok esterase Auto test strip Ql (U)NegativeNegativeSuburban Community Hospital & Brentwood HospitalUrobilinogen Auto test strip (U) [Mass/Vol]Ordered By: FELY WOOD on 05-04-2022 Urobilinogen (U) [Mass/Vol]Normal mg/dLNormalSuburban Community Hospital & Brentwood HospitalpH Auto test strip (U)Ordered By: FELY WOOD on 13-54-8771lV (U)6.0 [pH] 5.0-9.0[facility]. agalactiae Org specific cx Ql (Unsp spec)Ordered By: Yumiko Brown on 75-38-6050Bzuim B Streptococcus Culture Strep. agalactiae Grp BFLima City HospitalGTT 3 HR PREGon 53-57-7469Qgtqmfc [Mass/Vol]110 mg/dLCritically ybtd16-966IqeSumma Health Akron Campus Comment on above:Performed By: #### GTT3P #### [facility] [address] [address] [address] Vianca GoelGlucose [Mass/Vol]165 mg/dLNoMartins Ferry HospitalComment on above:Performed By: #### GTT3P #### [facility] [address] [address] [address] Vianca GoelGlucose [Mass/Vol]125 mg/dLNoMartins Ferry HospitalComment on above:Performed By: #### GTT3P #### [facility] [address] [address] [address] Vianca GoelGlucose [Mass/Vol]100 mg/dLMercy HealthComment on above:Performed By: #### GTT3P #### [facility] [address] [address] [address] Vianca Mccann - Gestational Screenon 29-20-2009Sjwcvpg [Mass/Vol]164 mg/dLHigh<135[facility]/John Dempsey HospitalComment on above:Result Comment: A value of 135 mg/dL or greater indicates the need for a full glucose tolerance test performed in the fasting state to determine if the patient has gestational diabetes.Performed By: #### HGB/HCT, GGLU #### [facility] [address] [place], [place] [id number]/HCTon 68-42-7044Eyqwspiskw (Bld) [Volume fraction]37.4 % Kuusgs13.0-47.0NoSt. Mary's Medical Center, Ironton CampusComment on above:Performed By: #### HGB/HCT, GGLU #### [facility] [address] [place], [place] [id number] (Bld) [Mass/Vol]12.2 g/nSAilskx10.6-15.5NoSt. Mary's Medical Center, Ironton CampusComment on above:Performed By: #### HGB/HCT, GGLU #### [facility] [address] [place], [place] [id number] 58-51-7205Djbueccupwa distribution width (RBC) [Ratio] 14.7 %High11.5 - 14.5 %[employer] Phone: Hematocrit (Bld) [Volume fraction]39.3 %37.0 - 47.0 % [employer] Phone: Hemoglobin (Bld) [Mass/Vol]13.0 g/dL12.0 - 16.0 g/dL [employer] Phone: Interpretation and review of laboratory results AbnormalKiwilogic Phone: MCH (RBC) [Entitic mass]28.1 pg27.0 - 31.3 pgKiwilogic Phone: MCHC (RBC) [Mass/Vol]33.0 %33.0 - 37.0 %[employer] Phone: MCV (RBC) [Entitic vol]85.2 fL82.0 - 100.0 fLKiwilogic Phone: platelets (Bld) [#/Vol]214 10*3/uL130 - 400 K/[facility] Work Phone: rBC (Bld) [#/Vol]4.61 10*6/[facility] Work Phone: WBC (Bld) [#/Vol]12.8 10*3/uLHigh4.8 - 10.8 K/[facility] Work Phone: cBC With Platelet No Differentialon 01-14-2021 Erythrocyte distribution width (RBC) [Ratio]14.7 %Critically high11.5-14.5[facility] MedcenterComment on above:Performed By: #### CBCND #### [facility] [address] [place] [address] Tyaxipbefq (Bld) [Volume fraction]39.3 %Qyddvm62.0-47.0[facility] MedcenterComment on above:Performed By: #### CBCND #### [facility] [address] [place] [address] Jhzypsrzht (Bld) [Mass/Vol]13.0 g/dVJxuhrl84.0-16.0[facility] MedcenterComment on above:Performed By: #### CBCND #### [facility] [address] [place] [address] VON (RBC) [Entitic mass]28.1 pfKxkblh49.0-31.3MChildren's Hospital ColoradoComment on above:Performed By: #### CBCND #### [facility] [address] [place] [address] SPOP (RBC) [Mass/Vol]33.0 %Cbhfhu75.0-37.0[facility] MedcenterComment on above:Performed By: #### CBCND #### [facility] [address] [place] [address] WWB (RBC) [Entitic vol]85.2 eUGwzavl71.0-100.0[facility] MedcenterComment on above:Performed By: #### CBCND #### [facility] [address] [place] [address] Pitbdhjcn (Bld) [#/Vol]214 10*3/zBCiollq940-880LpieoSterling Regional MedcenterComment on above:Performed By: #### CBCND #### [facility] [address] [place] [address] UGC (Bld) [#/Vol]4.61 10*6/uLNormal4.20-5.40[facility] MedcenterComment on above:Performed By: #### CBCND #### [facility] [address] [place] [address] LKG (Bld) [#/Vol]12.8 10*3/uLCritically high4.8-10.8[facility] MedcenterComment on above:Performed By: #### CBCND #### [facility] [address] [place] [address] YPNjc 25-43-8655Edlojj Ab RPR Ql (S)Lho-speaquxfGvrpkaKmv-zlldku [facility] MedcenterComment on above:Performed By: #### RPR #### [facility] [address] [place] [address] Ohirvv Ab RPR Ql (S)Hzp-qnqayzvmWxe-svjvpbasZelun Grata Work Phone: cbc With Platelet and Differentialon 01-12-2021 Basophils (Bld) [#/Vol]0.0 10*3/uLNormal0.0-0.2MChildren's Hospital Colorado Comment on above:Performed By: #### CBCWD #### [facility] [address] [place] [address] Vnskyixfu/100 WBC (Bld)0.3 %NormalSterling Regional Medcenter Comment on above:Performed By: #### CBCWD #### [facility] [address] [place] [address] Lzmgyzglvvd (Bld) [#/Vol]0.1 10*3/uLNormal0.0-0.7[facility] MedcenterComment on above:Performed By: #### CBCWD #### [facility] [address] [place] [address] Ylndigpjyoq/100 WBC (Bld)1.0 %[facility] Comment on above:Performed By: #### CBCWD #### [facility] [address] [place] [address] Jxchnfpgfzx distribution width (RBC) [Ratio]14.4 %Jbbgmw01.5-14.5 [facility] MedcenterComment on above:Performed By: #### CBCWD #### [facility] [address] [place] [address] Kipcrzfjvc (Bld) [Volume fraction]41.1 %Ifeopf40.0-47.0[facility] MedcenterComment on above:Performed By: #### CBCWD #### [facility] [address] [place] [address] Rphkmrellp (Bld) [Mass/Vol]13.6 g/fVPlbxfk54.0-16.0[facility] MedcenterComment on above:Performed By: #### CBCWD #### [facility] [address] [place] [address] Yyohlrvssxq (Bld) [#/Vol]2.0 10*3/uLNormal1.0-4.8[facility] MedcenterComment on above:Performed By: #### CBCWD #### [facility] [address] [place] [address] Szmppggdiuv/100 WBC (Bld)21.1 %[facility] Comment on above:Performed By: #### CBCWD #### [facility] [address] [place] [address] IHJ (RBC) [Entitic mass]28.5 vlZefgns57.0-31.3MChildren's Hospital ColoradoComment on above:Performed By: #### CBCWD #### [facility] [address] [place] [address] DQZO (RBC) [Mass/Vol]33.1 %Kodeac49.0-37.0[facility] MedcenterComment on above:Performed By: #### CBCWD #### [facility] [address] [place] [address] EIR (RBC) [Entitic vol]85.9 lEJmbnmn03.0-100.0[facility] MedcenterComment on above:Performed By: #### CBCWD #### [facility] [address] [place] [address] Acnuvffhq (Bld) [#/Vol]0.7 10*3/uLNormal0.2-0.8[facility] MedcenterComment on above:Performed By: #### CBCWD #### [facility] [address] [place] [address] Gvbzfybpd/100 WBC (Bld)7.5 %[facility] Comment on above:Performed By: #### CBCWD #### [facility] [address] [place] [address] Ovovanrxdhx (Bld) [#/Vol]6.7 10*3/uLCritically high1.4-6.5[facility] MedcenterComment on above:Performed By: #### CBCWD #### [facility] [address] [place] [address] Uneitvqozgg/100 WBC (Bld)70.1 %[facility] Comment on above:Performed By: #### CBCWD #### [facility] [address] [place] [address] Jgcpruvzd (Bld) [#/Vol]253 10*3/lCEepkzn732-611NjgjpSterling Regional MedcenterComment on above:Performed By: #### CBCWD #### [facility] [address] [place] [address] JKM (Bld) [#/Vol]4.79 10*6/uLNormal4.20-5.40[facility] MedcenterComment on above:Performed By: #### CBCWD #### [facility] [address] [place] [address] PAS (Bld) [#/Vol]9.6 10*3/uLNormal4.8-10.8[facility] MedcenterComment on above:Performed By: #### CBCWD #### [facility] [address] [place] [address] ABY auto differentialon 25-40-3107Kblfktzcw (Bld) [#/Vol]0.0 10*3/uL 0.0 - 0.2 K/uLSycamore Medical [email or web address] Phone: basophils/100 WBC (Bld)0.3 %[employer] Phone: eosinophils (Bld) [#/Vol]0.1 10*3/uL0.0 - 0.7 K/uL [employer] Phone: eosinophils/100 WBC (Bld)1 %[employer] Phone: erythrocyte distribution width (RBC) [Ratio]14.4 %11.5 - 14.5 %[employer] Phone: Hematocrit (Bld) [Volume fraction]41.1 %37.0 - 47.0 % [employer] Phone: Hemoglobin (Bld) [Mass/Vol]13.6 g/dL12.0 - 16.0 g/dL [employer] Phone: Interpretation and review of laboratory results AbnormalSycamore Medical [email or web address] Phone: lymphocytes (Bld) [#/Vol]2.0 10*3/uL1.0 - 4.8 K/uL [employer] Phone: lymphocytes/100 WBC (Bld)21.1 %[employer] Phone: MCH (RBC) [Entitic mass]28.5 pg27.0 - 31.3 pgKiwilogic Phone: MCHC (RBC) [Mass/Vol]33.1 %33.0 - 37.0 %[employer] Phone: MCV (RBC) [Entitic vol]85.9 fL82.0 - 100.0 fLKiwilogic Phone: Monocytes (Bld) [#/Vol]0.7 10*3/uL0.2 - 0.8 [email or web address] Phone: Monocytes/100 WBC (Bld)7.5 %[employer] Phone: Neutrophils Absolute6.7 K/uLHigh1.4 - 6.5 [email or web address] Phone: Neutrophils/100 WBC (Bld)70.1 %[employer] Phone: Platelets (Bld) [#/Vol]253 10*3/uL130 - 400 [employer] Phone: RBC (Bld) [#/Vol]4.79 10*6/[employer] Phone: WBC (Bld) [#/Vol]9.6 10*3/uL4.8 - 10.8 [email or web address] Phone: [phone]-30gx 73-24-0452SCDKY-, NAATNot DetectedNormal Not Memorial Hospital CentralComment on above:Result Comment: Rapid NAAT: Negative results should be treated [...] authorized laboratories. Fact sheet for Healthcare Providers: https://www.fda.gov/media/262695/download Fact sheet for Patients: https://www.fda.gov/media/221123/download METHODOLOGY: Isothermal Nucleic Acid AmplificationPerformed By: #### COVRG #### [facility] [address] [place] [address] WZDNF-19, Rapidon 70-98-6279QYQM-CoV-2, NAATNot DetectedNot Detected [facility] [employer] Phone: comment on above:Rapid NAAT: Negative results should be treated as [...] authorized laboratories. Fact sheet for Healthcare Providers: https://www.fda.gov/media/290594/download Fact sheet for Patients: https://www.fda.gov/media/787699/download METHODOLOGY: Isothermal Nucleic Acid Amplification Comprehensive Metabolic Panelon 21-07-7628Whaxl gap [Moles/Vol]12 mmol/LNormal 9-15[facility] MedcenterComment on above:Performed By: #### CMP ####[facility] [place] [phone] [Mass/Vol]3.3 g/dLLow3.5-4.6MChildren's Hospital ColoradoComment on above: Performed By: #### CMP ####[facility] [place] [phone] [Catalytic activity/Vol]118 U/RYeukpa49-354UanfwSterling Regional MedcenterComment on above:Performed By: #### CMP ####[facility] [place] [phone] [Catalytic activity/Vol]20 U/L Normal0-33[facility] MedcenterComment on above:Performed By: #### CMP ####[facility] [place] [phone] [Catalytic activity/Vol]30 U/LNormal0-35[facility] MedcenterComment on above:Performed By: #### CMP ####[facility] [facility] [phone] [Mass/Vol]0.5 mg/dLNormal0.2-0.7[facility] MedcenterComment on above:Performed By: #### CMP ####[facility] [phone] [Mass/Vol]9.0 mg/dLNormal8.5-9.9[facility] MedcenterComment on above: Performed By: #### CMP ####[facility] BarrettW[facility] [phone] [Moles/Vol]107 mmol/XJjqdio22-438WvkcrSterling Regional MedcenterComment on above:Performed By: #### CMP ####[facility] Barrett[facility] [phone] [Moles/Vol]17 mmol/DJjn85-71 [facility] MedcenterComment on above:Performed By: #### CMP ####[facility] BarrettW[facility] [phone] [Mass/Vol]0.40 mg/dLLow0.50-0.90[facility] MedcenterComment on above: Performed By: #### CMP ####[facility] BarrettW[facility] [phone]/1.73 sq M predicted among blacks MDRD (S/P/Bld) [Vol rate/Area]mL/min/{1.73_m2}Normal>60[facility] MedcenterComment on above:Result Comment: >60 mL/min/1.73m2 EGFR, calc. for ages 18 and older using the MDRD formula (not corrected for weight), is valid for stable renal function.Performed By: #### CMP ####[facility] [facility] [facility] [phone]/1.73 sq M.predicted MDRD (S/P/Bld) [Vol rate/Area]mL/min/{1.73_m2}Normal>60[facility] MedcenterComment on above:Result Comment: >60 mL/min/1.73m2 EGFR, calc. for ages 18 and older using the MDRD formula (not corrected for weight), is valid for stable renal function.Performed By: #### CMP ####[facility] Hospitalcitl[address] BarrettW[facility] [phone] (S) [Mass/Vol]3.3 g/dLNormal2.3-3.5 [facility] MedcenterComment on above:Performed By: #### CMP ####[facility] Hospitalcitl[address] BarrettW[facility] [phone] [Mass/Vol]75 mg/iPYaemlf12-10EmkmzChildren's Hospital ColoradoComment on above: Performed By: #### CMP ####[facility] Hospital[address] [facility] [phone] [Moles/Vol]4.0 mmol/LNormal3.4-4.9[facility] MedcenterComment on above:Performed By: #### CMP ####[facility] BarrettW[facility] [phone] [Mass/Vol]6.6 g/dLNormal 6.3-8.0[facility] MedcenterComment on above:Performed By: #### CMP ####[facility] [facility] [facility] [phone] [Moles/Vol]136 mmol/NEmyncm150-604VhxgnSterling Regional MedcenterComment on above: Performed By: #### CMP ####[facility] [facility] [phone] nitrogen [Mass/Vol]9 mg/dLNormal6-20[facility] MedcenterComment on above:Performed By: #### CMP ####[facility] [place] [phone] metabolic panelon 68-56-3925Kkjoqrm [Mass/Vol]3.3 g/dLLow3.5 - 4.6 g/dLSycamore Medical [email or web address] Phone: ZLP [Catalytic activity/Vol]118 U/L40 - 130 U/LMYaKlassy Grata Work Phone: KLT [Catalytic activity/Vol]20 U/L0 - 33 U/LMIron Belt Studios Work Phone: anion gap [Moles/Vol]12 mmol/[employer]. Phone: FST [Catalytic activity/Vol]30 U/L0 - 35 U/LMYaKlassy Grata Work Phone: bilirubin Ql (U)0.5 mg/dL0.2 - 0.7 mg/dLSycamore Medical [email or web address] Phone: calcium [Mass/Vol]9.0 mg/dL8.5 - 9.9 mg/dLSycamore Medical [email or web address] Phone: chloride [Moles/Vol]107 mmol/[employer]. Phone: cO2 [Moles/Vol]17 mmol/LLowSycamore Medical [email or web address] Phone: creatinine [Mass/Vol]0.4 mg/dLLow0.50 - 0.90 mg/dL [employer] Phone: GFR >60.0>60Sycamore Medical [email or web address] Phone: comment on above:>60 mL/min/1.73m2 EGFR, calc. for ages 18 and older using the MDRD formula (not corrected for weight), is valid for stable renal function. GFR Non->60.0>60[employer] Work Phone: comment on above:>60 mL/min/1.73m2 EGFR, calc. for ages 18 and older using the MDRD formula (not corrected for weight), is valid for stable renal function. Globulin (S) [Mass/Vol]3.3 g/dL2.3 - 3.5 g/dLSycamore Medical [email or web address] Phone: Glucose [Mass/Vol]75 mg/dL70 - 99 mg/dLSycamore Medical [email or web address] Phone: Interpretation and review of laboratory results AbnormalSycamore Medical [email or web address] Phone: potassium [Moles/Vol]4.0 mmol/LMYaKlassy [employer] Phone: protein [Mass/Vol]6.6 g/dL6.3 - 8.0 g/dLSycamore Medical [email or web address] Phone: sodium [Moles/Vol]136 mmol/LMpomerene hospitalCardiorobotics Phone: Urea nitrogen [Mass/Vol]9 mg/dL6 - 20 mg/dLSycamore Medical [email or web address] Phone: drug screen multi urineon 13-92-2555Lkxnttvlxld Screen, UrineNegativeNegative <1000 ng/mLSycamore Medical [email or web address] Phone: barbiturate Screen, UrNegativeNegative < 200 ng/mL [facility] [employer] Phone: benzodiazepine Screen, UrineNegativeNegative < 200 ng/mLSycamore Medical [email or web address] Phone: cannabinoid Scrn, UrNegativeNegative < 50 ng/mLSycamore Medical [email or web address] Phone: cocaine Metabolite Screen, UrineNegativeNegative < 300 ng/mLSycamore Medical [email or web address] Phone: drug Screen Comment:see belowSycamore Medical [email or web address] Phone: comment on above:This method is a screening test to detect only these drug classes as part of a medical workup. Confirmatory testing by another method should be ordered if clinically indicated. Methadone Screen, UrineNegativeNegative <300 ng/mLSelect [facility] [employer] Work Phone: Opiate Scrn, UrNegativeNegative < 300 ng/mLSelect [facility] Specialty [facility] [employer] Work Phone: Oxycodone UrineNegativeNegative <100 ng/mLSelect [facility] Specialty [facility] [employer] Work Phone: pCP Screen, UrineNegativeNegative < 25 ng/mLSelect [facility] Specialty [facility] [employer] Work Phone: propoxyphene Scrn, UrNegativeNegative <300 ng/mLSelect [facility] Specialty [facility] [employer] Work Phone: Hepatitis B Surface Agon 94-96-5577Gjppadode B Surface Ag InterpNon-reactiveNoUCHealth Greeley HospitalComment on above: Performed By: #### HBSG ####[facility] RdLorGardner State Hospital [phone] B Surface Antigenon 14-55-9700Axx B S Ag Interp Non-reactiveSelect Medical Specialty Hospital [facility] [employer] Work Phone: Microscopic Urinalysison 44-80-5894Ybcxhuut, UA NegativeNegative /HPFSelect Medical Specialty Hospital - [facility] [employer] Work Phone: epithelial Cells, UA0-2[facility] Work Phone: Hyaline Casts, UA0-1[facility] Work Phone: Interpretation and review of laboratory results AbnormalSelect Medical Specialty Hospital - [place] [employer] Work Phone: WBC (U) [#/Vol]50-100AbnormalSelect Medical Specialty Hospital - [facility] [employer] Work Phone: WBC, UA3-5[facility] [employer] Work Phone: Uubella Ab, IgGon 88-46-9970Vekrrqg Ab, IgG5.7 IU/mL NormalSterling Regional MedcenterComment on above:Result Comment: Equivocal results repeat testing in 10-14 days maybe helpful. Default Normal Ranges >=10 Presumed Immune <10 Presumed Not immunePerformed By: #### RUBEL #### [facility] [facility] [address] [place] [id number] [phone] antibody, IgGon 21-86-8706Ovevqfz Antibody IgG5.7IU/mLSycamore Medical CenterUn-[email or web address] Phone: comment on above:Equivocal results repeat testing in 10-14 days maybe helpful. Default Normal Ranges >=10 Presumed Immune <10 Presumed Not immune TYPE AND SCREENon 38-55-1756TRV/RhPositiveMer Grata Work Phone: Type and Screen Capture 3 scrn cellon 83-75-6734Baro and Screen Capture 3 scrn cellPATIENT: ANTHONY Nelson LOC: [facility] BILL# : [id number] : 1995 SEX: F ORDERED BY: JARON JIMENEZ ORDERED : 01/12/2021 19:34 COLLECTED: 01/12/2021 20:39 ORDER : [id number] RECEIVED : 01/12/2021 20:39 TEST NAME RESULT UNITS RANGES ABN FL ST ABORH Capture O POS F Antibody 3 Cell Scrn Captu NEG F [facility] HospitalComment on above:Performed By: #### TS3C #### [facility] [address] [place] [address] NA Drugs of Abuse Panelon 24-79-2390Cpps Screen Commentsee below [facility] HospitalComment on above:Result Comment: This method is a screening test to detect only these drug classes as part of a medical workup. Confirmatory testing by another method should be ordered if clinically indicated.Performed By: #### UDRGS ####[facility] [place] [phone] UR Amphetamines ScreenNegativeNormalNegative <[facility] Comment on above:Performed By: #### UDRGS ####[facility] [facility] [place] [phone] Barbiturates ScreenNegativeNormalNegative <[facility] MedcenterComment on above:Performed By: #### UDRGS ####[facility] [facility] [place] [phone] Benzo ScreenNegativeNormalNegative <[facility] MedcenterComment on above:Performed By: #### UDRGS ####[facility] [facility] [place] [phone] Cannabinoids ScreenNegativeNormalNegative <[facility] MedcenterComment on above:Performed By: #### UDRGS ####[facility] [facility] [place] [phone] Cocaine Screen NegativeNormalNegative <[facility] MedcenterComment on above:Performed By: #### UDRGS ####[facility] [facility] [place] [phone] Methadone ScreenNegativeNormalNegative <[facility] MedcenterComment on above:Performed By: #### UDRGS ####[facility] [facility] [place] [phone] Opiates ScreenNegative NormalNegative <[facility] MedcenterComment on above:Performed By: #### UDRGS ####[facility] [facility] [place] [phone] UR Oxycodone ScreenNegativeNormalNegative <[facility] MedcenterComment on above:Performed By: #### UDRGS ####[facility] [facility] [phone] PCP ScreenNegativeNormalNegative <[facility] MedcenterComment on above:Performed By: #### UDRGS ####[facility] [facility] [phone] Propoxyphene Screen NegativeNormalNegative <[facility] MedcenterComment on above:Performed By: #### UDRGS ####[facility] [facility] [phone] 32-88-6679Nejkeuelm UrineNegativeNegativeSycamore Medical CenterFoundation for Community Partnerships Health Work Phone: blood, UrineLARGEAbnormalNegativeSycamore Medical CenterFoundation for Community Partnerships Health Work Phone: clarity, UAClearClearMerFoundation for Community Partnerships Health Work Phone: color, UAYellowStraw/YellowSycamore Medical CenterFoundation for Community Partnerships Health Work Phone: Glucose, UrNegativeNegative mg/dLSycamore Medical CenterFoundation for Community Partnerships Health Work Phone: Interpretation and review of laboratory results AbnormalSycamore Medical CenterScoreStream Work Phone: Ketones Ql (U)NegativeNegative mg/dLSycamore Medical CenterFoundation for Community Partnerships Health Work Phone: leukocyte esterase Test strip Ql (U)NegativeNegative [facility] HospitalUtility Scale Solar Work Phone: Nitrite, UrineNegativeNegativeSycamore Medical CenterFoundation for Community Partnerships Health Work Phone: pH, UA6.0[facility] CenterFoundation for Community Partnerships Health Work Phone: protein (U) [Mass/Vol]NegativeNegative mg/dLSycamore Medical CenterFoundation for Community Partnerships Health Work Phone: specific [place], UA1.020Sycamore Medical CenterScoreStream Work Phone: Urobilinogen, Urine0.2<2.0 E.U./dLSycamore Medical CenterFoundation for Community Partnerships Health Work Phone: Urinalysis, reflex to microscopicon 01-12-2021 Bilirubin Ql (U)NegativeNormalNegSCL Health Community Hospital - NorthglennComment on above:Performed By: #### UA #### [facility] [address] [place] [address] Jcqnpmb (U)ClearNormalClearSterling Regional MedcenterComment on above:Performed By: #### UA #### [facility] [address] [place] [address] Cumfi (U)YellowNormalStraw/YellSterling Regional MedcenterComment on above:Performed By: #### UA #### [facility] [address] [place] [address] Hdysmmj Ql (U)NegativeBrookdale University Hospital and Medical Center Comment on above:Performed By: #### UA #### [facility] [address] [place] [address] Yqlgmdylrk Ql (U)LARGEAbnoUCHealth Grandview Hospital Comment on above:Performed By: #### UA #### [facility] [address] [place] [address] Daazovf Ql (U)[facility] Comment on above:Performed By: #### UA #### [facility] [address] [place] [address] Hbmmnodwg esterase Test strip Ql (U)[facility] Medical CenterComment on above:Performed By: #### UA #### [facility] [address] [place] [address] Cbyomrh Ql (U)[facility] Comment on above:Performed By: #### UA #### [facility] [address] [place] [address] qZ (U)6.0 [pH]Normal5.0-9.0[facility] MedcenterComment on above:Performed By: #### UA #### [facility] [address] [place] [address] Bdvhoxw Ql (U)NegativeNormalNegSCL Health Community Hospital - Northglenn Comment on above:Performed By: #### UA #### [facility] [address] [place] [address] Wxpkalzu gravity (U) [Rel density]1.007Nwtfmn2.005-1.03[facility] MedcenterComment on above:Performed By: #### UA #### [facility] [address] [place] [address] Ychxsfaoghgr Qn (U)0.2 {Paulie'U}/dLNormal< 2.0[facility] MedcenterComment on above:Performed By: #### UA #### [facility] [address] [place] [address] [employer] 31-64-8183Lknxcuno LM.HPF (Urine sed) [#/Area] NegativeNormalNegSCL Health Community Hospital - NorthglennComment on above:Performed By: #### UMIC #### [facility] [address] [place] [address] YSI (U) [#/Vol]71-644Bbhrommp8-2ErxmuSterling Regional MedcenterComment on above:Performed By: #### UMIC #### [facility] [address] [place] [address] Sfrlx Epithelial Cells Ptxs6-6Mvqxcs0-8Axhmb[address] [place] [address] Comment on above:Performed By: #### UMIC #### [facility] [address] [place] [address] Dtwji Hyaline Casts Jmcx3-3Jymtkp7-0Vctsf[address] [place] [address] Comment on above:Performed By: #### UMIC #### [facility] [address] [place] [address] Mfpor WBC Kemg8-0Tsvamb2-9Gvpja[address] [place], [place] [address]Comment on above:Performed By: #### UMIC #### [facility] [address] [place] [address] AQTJQ-19, NAAon 36-84-0944WIGGD-19, NAANot DetectedNormalNot Detect [facility] MedcenterComment on above:Result Comment: This nucleic acid amplification test was developed and its performance characteristics determined by [employer]. Nucleic acid amplification tests include RT-PCR and [...] detected) result in this assay. Performed at: [address] [id number] [employer] Material: Mian Murcia PhD, Phone: [phone] By: #### TSH #### [facility] [address] [facility] [address] [place] [id number] [phone]-19, NAAon 72-18-1963Oveeca SwabAnterior naresNormalMercy Mercy Health St. Joseph Warren HospitalComment on above:Performed By: #### TSH #### [facility] [address] [facility] [address] [place] [id number] [phone], Group B Strepon 74-30-5492Jftvkut, Group B StrepORDER#: [id number] ORDERED BY: GERRI SALMERON SOURCE: Vagina Genital COLLECTED: 12/22/20 17:49 ANTIBIOTICS AT MALIKA.: RECEIVED : 12/22/20 19:22 Culture, Group B Strep FINAL 12/24/20 11:32 Heavy growth BHS Group B (Strep agalacticae) No further workup Susceptibility testing of penicillin and other beta lactams is not necessary for beta hemolytic Streptococci since resistant strains have not been identified. (CLSI M100)[facility] Comment on above:Performed By: #### TSH #### [facility] [address] [place] [address] Iwmffxh 36-98-9151JNIKIWLOCC CONFIRMS A SINGLE LIVING INTRAUTERINE AT 29 WEEKS 5 DAYS +/- 3 WEEKS. ADDITIONAL DATING PARAMETERS AND LIMITATIONS DETAILED ABOVE.[facility] [place], [place]Fetal [place]ogram #: 1 Presentation: Cephalic GS: CRL: BPD: 7.37 Wks: 29w 4d HC: 27.74 Wks: 30w 3d AC: 25.38 Wks: 29w 4d FL: 5.55 Wks: 29w 2d HC/AC: 1.09 Anatomy Cerebral Ventricles PosteriorFossa Spinal Column Right Kidney V renal pelvis [...] Transabdominal ultrasound of the gravid uterus was performed.Transvaginal imaging at in this patient who was not adequately prepped the transabdominal study. There is a single living intrauterine with cephalic presentation. Placenta is located along the anterior aspect of the uterus. There are a few small placental hypoechogenicities. No ultrasoundsigns of previa or abruption. Amniotic fluid index [...] gestation. heart rate of 128 bpm is documented.[place]- [place], [place], [facility] Incoming Radiant Results From [employer] - 11/04/2020 5:03 PM EST Sonogram #: [...] +/- 3 weeks. When compared to the firsttrimester ultrasound fetus should be 28 weeks 1 [...] ADDITIONAL DATING PARAMETERS AND LIMITATIONS DETAILED ABOVE. [facility] [place], FLUS OB 1 OR MORE FETUS LIMITEDon 61-53-4542PF OB 1 OR MORE FETUS LIMITEDFetal Sonogram #: 1 Presentation: Cephalic GS: CRL: [...] +/- 3 weeks. When compared to the firsttrimester ultrasound fetus should be 28 weeks 1 [...] Signed by: Lauren Winters MD 11/04/20 Final resultNoUCHealth Greeley HospitalUS OB TRANSVAGINALon 84-57-0083LB OB TRANSVAGINALFetal Sonogram #: 1 Presentation: Cephalic GS: CRL: [...] +/- 3 weeks. When compared to the firsttrimester ultrasound fetus should be 28 weeks 1 [...] Signed by: Lauren Winters MD 11/04/20 Final resultNormalSterling Regional MedcenterGlucose 1hr PPon 10-06-2020 Glucose [Mass/Vol]100 mg/yWZktqjp61-868CrgftSterling Regional MedcenterComment on above:Result Comment: Glucose tolerance is IMPAIRED when the 1 hour post 50 gram load glucose is greater than 130mg/dLPerformed By: #### TSH #### [facility] [address] [place] [id number] [phone] and Hematocriton 54-36-4539Wcpempqigk (Bld) [Volume fraction]34.3 %Low37.0-47.0[facility] MedcenterComment on above: Performed By: #### TSH #### [facility] [address] [facility] [address] Fzmuzrsgwj (Bld) [Mass/Vol]11.8 g/dLLow12.0-16.0[facility] MedcenterComment on above:Performed By: #### TSH #### [facility] [address] [facility] [address] PY OB 14 PLUS WEEKS SINGLE OR FIRST GESTATIONon 08-31-4003EPX Coag (Bld) [Relative time]APPROPRIATE INTERVAL GROWTH.[facility] [place], [place]Fetal Sonogram #: 1 Presentation: Variable GS: CRL: [...] Today's biometric parameters indicate an estimated ultrasound ageof 20 weeks and 6 days compatible with appropriate interval growth.[facility] [place], Esther Mcconnell Incoming Radiant Results From [email or web address] - 09/07/2020 5:26 PM EST Sonogram #: [...] variable lie. Amniotic fluid volume is subjectively withinnormal limits. 4.6 cm cervical length. Anterior placenta without previa. heart rate 138 bpm. Fetus scanned with further detail on the accompanying sheet. No gross abnormality. Today's biometric parameters indicate an estimated ultrasound age of 20 weeks and 6 days compatible with appropriate interval growth. IMPRESSION: APPROPRIATE INTERVAL GROWTH.[facility], [place], KYUS OB 14 PLUS WEEKS SINGLE OR FIRST GESTATIONon 13-10-9073LE OB 14 PLUS WEEKS SINGLE OR FIRST GESTATIONFetal Sonogram #: 1 Presentation: Variable GS: CRL: [...] variable lie. Amniotic fluid volume is subjectively withinnormal limits. 4.6 cm cervical length. Anterior placenta without previa. heart rate 138 bpm. Fetus scanned with further detail on the accompanying sheet. No gross abnormality. Today's biometric parameters indicate an estimated ultrasound age of 20 weeks and 6 days compatible with appropriate interval growth. IMPRESSION: APPROPRIATE INTERVAL GROWTH. Interpreted by: Alcon Bernal MD Signed by: Alcon Bernal MD 09/07/20 Final resultNoUCHealth Greeley HospitalNon-Invasive Testing for Aneuploidyon 35-99-1606YSR Non-Invasive , AneuploidySee NoteNoal [facility] MedcenterComment on above:Result Comment: Access Super Enhanced Report using the link below: -Direct access: [email or web address] Performed by [employer], [address] [place] [address] www.[email or web address], Nafisa Hilton MD - Lab. DirectorPerformed By: #### [id number] #### [facility] [address] [place] [address] Fwtru Fraction7.7 %[facility] HospitalComment on above:Performed By: #### [id number] #### [facility] [address] [place] [address] Pikul GenderFemaleNormGrand River HealthComment on above:Performed By: #### 61510 #### [facility] [address] [place] [address] Apqxmmmv XLow RiskNoUCHealth Greeley HospitalComment on above:Performed By: #### 61560 #### [facility] [address] [place] [address] Eezdpd SummarySee NotesWest Springs HospitalComment on above:Result Comment: LOW RISKPerformed By: #### 69102 #### [facility] [address] [place] [address] Urcbzppmb/Vanishing TwinLow RiskWest Springs Hospital Comment on above:Performed By: #### [id number] #### [facility] [address] [place] [address] Axtowyu 13Low RiskWest Springs HospitalComment on above:Performed By: #### 98293 #### [facility] [address] [place] [address] Bmjwxdd 18Low RiskWest Springs HospitalComment on above:Performed By: #### 32722 #### [facility] [address] [place] [address] Ogwkcft 21Low [facility]ee Medical CenterComment on above:Performed By: #### 22483 #### [facility] [address] [place] [address] Csfkzq Fibrosis, 165 Variantson 41-55-7709Dwcmnv Fibrosis 5T Variant Not ApplicableNoUCHealth Greeley HospitalCystic Fibrosis Allele 1 NegativeNoUCHealth Greeley HospitalCystic Fibrosis Allele 2Negative [facility] Springs HospitalCystic Fibrosis,165 Variants Interp0 variants [facility] HospitalComment on above:Result Comment: None of the 165 pathogenic cystic [...] 1 in 61 1 in 275 Ashkenazi Islam 96% 1 in [address] [place] Helenian 55% 1 in 94 1 in 210 92% 1 in [address] Helenian 80% 1 in 58 1 in 285 [...] or bronchiectasis. INCIDENCE: 1 in 2,300 Ashkenazi Islam, 1 in 2,500 Caucasians, 1 in 13,500 [...] for the 23 recommended ACMG variants. c.1A>G, p.Gtx4Fwc; c.34-3814_789+18797jai, Exons 2-3del; c.115C>T, p.Gln39X; c.178G>T, p.Glu60X; c.200C>T, p.Btj45Eol; c.223C>T, p.Arg75X; c.254G>A (Legacy G85E), p.Abq22Kzz; c.262_263delTT, p.Mmp79ZjzcfW62 (aka p.Ryj75ur); c.273+1G>A, Intronic; c.273+3A>C, Intronic; c.274-1G>A, Intronic; c.274G>A, p.Zan72Lpn; c.274G>T, p.Glu92X; c.292C>T, p.Gln98X; c.313delA, p.Jqw900UqkjdR2 (aka p.Oih926sw); c.325_327delTATinsG, p.Wxh370GpttuC1 (aka p.Epk026fa); c.328G>C, p.Tci975Ptl; c.349C>T, p.Esh520Ueh; c.350G>A (Legacy R117H), p.Whk394Ywu; c.366T>A, p.Hht655P; c.442delA, p.Xsu441ExzztR6 (aka p.Jod354if); c.489+1G>T (Legacy 621+1G>T), Intronic; c.531delT, p.Udb777AuaemM97 (aka p.Cri367ma); c.532G>A, p.Wmu849Twd; c.579+1G>T (Legacy 711+1G>T), Intronic; c.579+5G>A, Intronic; c.579+3A>G, Intronic; c.580-1G>T, Intronic; c.595C>T, p.Igq820Slq; c.613C>T, p.Woi521Owi; c.617T>G, p.Zsr896Dgk; c.658C>T, p.Exp868X; c.680T>G, p.Nkz896Hbx; c.285_741delAGGGAGAATGATGATGAAGTAC, p.Bqs693CllscE40 (aka p.Odn881ib); c.803delA, p.Vnq108VtmluE14 (aka p.Mfk845cb); c.805_806delAT, p.Qyq015HwkvjM7 (aka p.Qao611sh); c.933_935delCTT, p.Agu035xoj; c.948delT, p.Fzr296PgecrG96 (aka p.Lht743km); c.988G>T, p.Dqf354O; c.1000C>T (Legacy R334W), p.Lwf092Snq; c.1007T>A, p.Ehi478Rma; c.1021T>C, p.Yrm278Ccx; c.1022_1023insTC, p.Neo563IyykbY44 (aka p.Tje941hs); c.1040G>A, p.Ydz028Lme; c.1040G>C (Legacy R347P), p.Qgy540Ikb; c.1055G>A, p.Uru232Bhk; c.1081delT, p.Ucb102UpqxqG4 (aka p.Auk184sr); c.1116+1G>A, Intronic; c.1127_1128insA, p.Tqv079EgxwfL8 (aka p.Feh158it); c.1153_1154insAT, p.Tnc095FwywcS4 (aka p.Ave667cz); c.1202G>A, p.Zuo736I; c.1203G>A, p.Jcg874N; c.1209+1G>A, Intronic; c.1329_1330insAGAT, p.Iba979RcerjF5 (aka p.Itt993la); c.1340delA, p.Yen284JcjxpD8 (aka p.Wka224fx); c.1364C>A (Legacy A455E), p.Oug266Fqt; c.1393-1G>A, Intronic; c.1397C>A, p.Dkk151Q; c.1397C>G, p.Bzx323U; c.1400T>C, p.Pql388Hsz; c.1418delG, p.Wac267BwxhpD23 (aka p.Zzm662vs); c.1438G>T, p.Pkv647Lpm; c.1466C>A, p.Znh801O; c.1475C>T, p.Deb650Eun; c.1477C>T, p.Cpo537X; c.1519_1521delATC (Legacy I923rwj), p.Lmz477bjq; c.1521_1523delCTT (Legacy O574hnt), p.Usw019srk; c.1545_1546delTA, p.Fid235P; c.1558G>T, p.Lko790Isa; c.1572C>A, p.Dvb635I; c.1573C>T, p.Hkt975T; c.1585-1G>A (Legacy 1717-1G>A), Intronic; c.1585-8G>A, Intronic; c.1624G>T (Legacy G542X), p.Rjl569I; c.1645A>C, p.Spy066Tnu; c.1646G>A, p.Msl661Mif; c.1647T>G, p.Cpa266Fxn; c.1651G>A, p.Unc108Pul; c.1652G>A (Legacy G551D), p.Ejb692Als; c.1654C>T, p.Zmi832D; c.1657C>T (Legacy R553X), p.Iuf412K; c.1675G>A, p.Tzr147Ahy; c.1679G>A, p.Yab070Xep; c.1679G>C (Legacy R560T), p.Bxp690Rlo; c.1679+1.6kbA>G, Intronic; c.1680-1G>A, Intronic; c.1703delT, p.Vli530DjsohN6 (aka p.Dgd364nr); c.1705T>G, p.Cud015Kjx; c.1721C>A, p.Lpz242Eem; c.1753G>T, p.Iib535E; c.1766+1G>A (Legacy 1898+1G>A), Intronic; c.1766+3A>G, Intronic; c.1792_1798delAAAACTA, p.Pub966JqafqG55 (aka p.Ado300ky); c.1911delG, p.Zou912HdvroS25 (aka p.Ndu870ws); c.1923_1931del9insA, p.Sab976HwszbI3 (aka p.Cuk763wq); c.1972_1984del13insAGAAA, p.Zld284LlostB0 (aka p.Hxj351op); c.1975delA, p.Twc179QdbtcT3 (aka p.Tex453zt); c.2011delT, p.Rqe326F; c.2050_2del, p.Oen621NxrbmH4; c.2050_elinsG (aka c.2050_elinsG), p.Xar480ZxjijT42; c.2delA (Legacy 2184delA), p.Zyi658TivaeQ74; c.2125C>T, p.Gvu087X; c.2128A>T, p.Kkf134E; c.2175_2176insA, p.Dnx793CddlpN5 (aka p.Vlf822qb); c.2195T>G, p.Wug485J; c.2215delG, p.Sdf872JxveqF54 (aka p.Xpk478fs); c.2290C>T, p.Tza556Uok; c.2453delT, p.Lpx107NlsmfC1 (aka p.Rgx035oj); c.2464G>T, p.Qlf165L; c.2490+1G>A, Intronic; c.2491G>T, p.Oig262T; c.2537G>A, p.Pkk677T; c.2538G>A, p.Qcn255Q; c.2551C>T, p.Qul698R; c.2583delT, p.Nws958IcbaiD5 (aka p.Gaj082uy); c.2657+5G>A (Legacy 2789+5G>A), Intronic; c.2668C>T, p.Mmj890K; c.2737_2738insG, p.Hui256K; c.2780T>C, p.Irq586Dby; c.2810_2811insT, p.Fex785LlpqfJ17 (aka p.Ozh127td); c.2834C>T, p.Hhr079Viu; c.2875delG, p.Min747CrfklF6 (aka p.Wua946kn); c.2908G>C, p.Kwy196Ujc; c.2988+1G>A (Legacy 3120+1G>A), Intronic; c.2988G>A, Intronic; c.2989-1G>A, Intronic; c.3039delC, p.Mqr5919JmrgxY9 (aka p.Viv7090tb); c.3067_3072delATAGTG, p.Ygr9298_Xrt1502yke (aka J6867_X9059fbm); c.3140-26A>G, Intronic; c.3194T>C, p.Oki9741Fvw; c.3196C>T, p.Fba7833Iuj; c.3197G>A, p.Vlv1054Mcu; c.3230T>C, p.Aig9553Ugi; c.3266G>A, p.Bzl3997S; c.3276C>A, p.Dst7264Z; c.3276C>G, p.Olv4945V; c.3302T>A, p.Kbx7863Dxx; c.3310G>T, p.Iyj9134J; c.3472C>T, p.Snh9404J; c.3484C>T (Legacy S3395C), p.Koq4762K; c.3528delC (Legacy 3659delC), p.Eoi2175VorzsH04 (aka p.Guj0724zf); c.3536_3539del, p.Qgg2333UtdtfB62 (aka p.Jep3526xo); c.3587C>G, p.Vwx7906M; c.3611G>A, p.Fiw8372J; c.3612G>A, p.Meh0804F; c.3659delC, p.Rzx5514HdrwsD3 (aka p.Jgi2132qb); c.3691delT, p.Rsg6806IsofrU0 (aka p.Jjk3840eb); c.3712C>T, p.Xln8226C; c.3418-5757C>T (Legacy 3849+10kbC>T), Intronic; c.3731G>A, p.Ghj5959Kfq; c.3744delA, p.Nyl9893SkbyrI6 (aka p.Ebv0271oo); c.3752G>A, p.Ayu6853Qsf; c.3763T>C, p.Cdy1693Jcn; c.3764C>A, p.Zjd7906C; c.3773_3774insT, p.Doo3332ZgjdjS6 (aka p.Fiq8636hl); c.3846G>A (Legacy Y9032A), p.Pwd7416L; c.3873+1G>A, Intronic; c.3909C>G (Legacy C3749L), p.Nml0865Jwi; c.3937C>T, p.Kbz6243B; c.3964-78_4242+577del, Exons 22-23del; c.4028delG, p.Wut1480PpfsyC8 (aka p.Aah1750gg); c.4046G>A, p.Wrn7687Wow; c.4077_4080delTGTTinsAA, p.Vht2804afC9 (aka p.Xas7631df); c.4111G>T, p.Rci8606B; c.4251delA, p.Qos0398DncywC36 (aka p.Ffk5488hg). The IVS-8 variant, c.1210-12[5], will be reported only when R117H is detected or in patients who are reported to be symptomatic. CLINICAL SENSITIVITY: Ashkenazi Islam 96 percent; 92 percent; 80 percent; 78 percent; St Helenian 55 percent. METHODOLOGY: Polymerase chain reaction (PCR) and fluorescence monitoring. Analytical Sensitivity AND Specificity: 99 percent. LIMITATIONS: Diagnostic errors can occur due to rare sequence variations. Only the 165 pathogenic CFTR variants and 5T variant (listed above) will be interrogated. See Compliance Statement C: [email or web address] Performed by [employer], [address] [place] [id number] [email or web address], Nafisa Hilton MD - Lab. DirectorHIV-1,2 Combo Ag/Ab, Reflexive Panelon 13-23-3550AAG 1,2 Combo Antigen/AntibodyNegativeNormgaNegativeSterling Regional MedcenterComment on above:Result Comment: The specimen was non- reactive for HIV-1 and HIV-2 antibodies, and p24 antigen. Based on this non-reactive screen result, further reflexive testing was not indicated and was, therefore, not performed INTERPRETIVE INFORMATION: HIV-1,2 Combo Ag/Ab EIA, w/Reflex This assay should not be used for blood donor screening, associated re-entry protocols, or for screening Human Cells, Tissues, and Cellular and Tissue-Based Products (HCT/P). Performed by [employer], [address] [facility],[place] [address] www.[employer], Nafisa Hilton MD - Lab. DirectorMaternal Serum Screen, AFP, Onlyon [id number]tzm Regional Medical CenterEstimated Due [id number] Springs HospitalFamily Hx Neural Tube Defect NoNPioneers Medical CenterGestational Age calc at immnfga10 wks, 5 daysWest Springs HospitalINR Coag (Bld) [Relative time]NoNSt. Anthony North Health CampusMaternal Age At Oufmmedu61.7 yrNoUCHealth Greeley HospitalMaternal RaceNonblackWest Springs HospitalMaternal Screen InterpretationScreen NegWest Springs HospitalComment on above:Result Comment: INTERPRETATION: SCREEN NEGATIVE for open spina bifida Neural Tube Defects (NTD) Negative Pre-Test Post-Test Cutoff Neural Tube Defects Risks 1:1030 < 1:81975 1:250 Comments: The risk of an open neural tube defect is less than the screening cut-off. Test developed and characteristics determined by [facility]. See Compliance Statement B: [facility]/HERMANN [facility] DISTRICT HOSPITALoM for AFP0.95West Springs HospitalNumber of FetusesSingletonWest Springs Hospital Patient's AFP25 ng/mLNLincoln Community HospitalmokingPikes Peak Regional HospitalpecimenSee NoteNoUCHealth Greeley Hospital Comment on above:Result Comment: Initial sample Performed by [facility], [address] [place] [address] www.[employer], Nafisa Hilton MD - Lab. DirectorVaricella-Zoster Virus Ab, IgG on [id number]-Zoster Virus Ab, KiC259.1 IVNormGrand River HealthComment on above:Result Comment: INTERPRETIVE INFORMATION: VZV Ab, IgG 134.9 IV or [...] laboratory at the same time. Performed By: [facility] [address] [place] [address] Mohs Surgeon/General Dermatologist: Kirsten Munoz 70-75-0738Szklzk Ab RPR Ql (S) Hmo-opxsbibvGutgrrUro-iitlauCvqxt Regional Medical CenterComment on above: Performed By: #### TSH #### [facility] [address] [facility] [address] KZS With Platelet and Differentialon 62-58-8992Rgdcovaii (Bld) [#/Vol]0.0 10*3/uLNormal0.0-0.2MChildren's Hospital ColoradoComment on above: Performed By: #### CBCWD #### [facility] [address] [facility] [address] Qmywwgvri/100 WBC (Bld)0.2 %NormalSterling Regional Medcenter Comment on above:Performed By: #### CBCWD #### [facility] [address] [facility] [place] [address] Adjalpahsyg (Bld) [#/Vol]0.1 10*3/uLNormal0.0-0.7[facility] MedcenterComment on above:Performed By: #### CBCWD #### [facility] [address] [place] [address] Ykwupyfuqif/100 WBC (Bld)1.5 %[facility] Comment on above:Performed By: #### CBCWD #### [facility] [address] [place] [address] Lcbaskmkhzh distribution width (RBC) [Ratio]13.5 %Aunreu25.5-14.5 [facility] MedcenterComment on above:Performed By: #### CBCWD #### [facility] [address] [place] [address] Fopyksjljl (Bld) [Volume fraction]39.5 %Knthid29.0-47.0[facility] MedcenterComment on above:Performed By: #### CBCWD #### [facility] [address] [place] [address] Mnabdjicmi (Bld) [Mass/Vol]12.9 g/yUHtykbl49.0-16.0[facility] MedcenterComment on above:Performed By: #### CBCWD #### [facility] [address] [place] [address] Fszzwjyeetr (Bld) [#/Vol]2.1 10*3/uLNormal1.0-4.8[facility] MedcenterComment on above:Performed By: #### CBCWD #### [facility] [address] [place] [address] Clhmpdqdmrj/100 WBC (Bld)21.6 %[facility] Comment on above:Performed By: #### CBCWD #### [facility] [address] [place] [address] BDE (RBC) [Entitic mass]28.8 huSbnnlu58.0-31.3MChildren's Hospital ColoradoComment on above:Performed By: #### CBCWD #### [facility] [address] [place] [address] LZWJ (RBC) [Mass/Vol]32.7 %Low33.0-37.0[facility] Comment on above:Performed By: #### CBCWD #### [facility] [address] [place] [address] SIA (RBC) [Entitic vol]88.1 nOJazatf06.0-100.0[facility] MedcenterComment on above:Performed By: #### CBCWD #### [facility] [address] [place] [address] Mrbihhmna (Bld) [#/Vol]0.5 10*3/uLNormal0.2-0.8[facility] MedcenterComment on above:Performed By: #### CBCWD #### [facility] [address] [place] [address] Bfubfggjf/100 WBC (Bld)5.4 %[facility] Comment on above:Performed By: #### CBCWD #### [facility] [address] [place] [address] Tpwxlxzqpqw (Bld) [#/Vol]7.0 10*3/uLCritically high1.4-6.5[facility] MedcenterComment on above:Performed By: #### CBCWD #### [facility] [address] [place] [address] Vimlxnekfgh/100 WBC (Bld)71.3 %[facility] Comment on above:Performed By: #### CBCWD #### [facility] [address] [place] [address] Kecyydvkn (Bld) [#/Vol]271 10*3/aONaheab240-145AqriySterling Regional MedcenterComment on above:Performed By: #### CBCWD #### [facility] [address] [place] [address] QLM (Bld) [#/Vol]4.48 10*6/uLNormal4.20-5.40[facility] MedcenterComment on above:Performed By: #### CBCWD #### [facility] [address] [place] [address] KRA (Bld) [#/Vol]9.8 10*3/uLNormal4.8-10.8[facility] MedcenterComment on above:Performed By: #### CBCWD #### [facility] [address] [place] [address] Mrgzpbgxw B Surface Agon 26-65-1813Jfafgfihn B Surface Ag Interp Non-reactiveNoUCHealth Greeley HospitalComment on above:Performed By: #### HBSG #### [facility] [address] [place] [address] Ohy-Invasive Testing for Aneuploidyon 96-16-3373Qfpkx Asepxm6AnngdaDogoyWest Springs HospitalComment on above:Performed By: #### 33313 #### [facility] [address] [place] [address] Nkjeumijkzp Age (Days)5NoUCHealth Greeley HospitalComment on above:Performed By: #### 21375 #### [facility] [address] [place] [address] Bphdjhzllbo Age (Weeks)15NPioneers Medical CenterComment on above:Performed By: #### 90407 #### [facility] [address] [place] [address] EARB Areacn23LthsrkMfpwcUCHealth Greeley HospitalComment on above: Performed By: #### 14352 #### [facility] [address] [place] [address] Xfystm Fetus GenderyesWest Springs HospitalComment on above:Performed By: #### 47065 #### [facility] [address] [place] [address] Vdfgpvs Ab, IgGon 16-60-1231Hmuxmkf Ab, IgG7.5 IU/mLNPioneers Medical CenterComment on above:Result Comment: Equivocal results repeat testing in 10-14 days maybe helpful. Default Normal Ranges >=10 Presumed Immune <10 Presumed Not immunePerformed By: #### MARILU #### [facility] [address] [place] [address] Iqkk and 3 cell Screen OB Captureon [id number] and 3 cell Screen OB CapturePATIENT: ANTHONY Nelson LOC: [facility] BILL# : [id number] : 1995 SEX: F ORDERED BY: JARON JIMENEZ ORDERED : 08/09/2020 17:53 COLLECTED: 08/09/2020 18:33 ORDER : [id number] RECEIVED : 08/09/2020 19:15 TEST NAME RESULT UNITS RANGES ABN FL ST ABORH Capture O POS F Antibody 3 Cell Scrn Captu NEG F [facility] Springs HospitalComment on above:Performed By: #### TSO3C #### [facility] [address] [place] [address] Yppy Mgt Drug Panel, Hi Res, Uron [address]-kqksaxpnyunfrt (cutoff 20 ng/mL)Not DetectedNoUCHealth Greeley Hospital7-Aminoclonazepam (cutoff 40 ng/mL)Not DetectedNormGrand River Health Jftcw-EM-Gkxkjwweto (cutoff 20 ng/mL)Not DetectedNormGrand River HealthAlprazolam (cutoff 40 ng/mL)Not DetectedNormGrand River HealthAmphetamine (cutoff 100 ng/mL)Not DetectedNormGrand River HealthBarbiturates (cutoff 200 ng/mL)Not DetectedWest Springs HospitalBenzoylecgonine Ql (U)Not DetectedWest Springs Hospital Buprenorphine (cutoff 5 ng/mL)Not DetectedNoUCHealth Greeley Hospital Carisoprodol (cutoff 100 ng/mL)Not DetectedWest [facility] Hospital Comment on above:Result Comment: The carisoprodol immunoassay has cross- reactivity to carisoprodol and meprobamate.Clonazepam (cutoff 20 ng/mL)Not DetectedNoUCHealth Greeley HospitalCodeine (cutoff 40 ng/mL)Not DetectedWest Springs Hospital Creatinine, Hfdks051.1 mg/zVGxsddb99.0-400.0[facility] Diazepam (cutoff 50 ng/mL)Not DetectedWest Springs HospitalEER Pain Mgt Drug Panel High Res/EMIT USee NoteWest Springs Hospital Comment on above:Result Comment: Access Super Enhanced Report using either link below: -Direct access: [email or web address] -Enter Username, Password: [email or web address] Username: [email or web address] Password: [email or web address] Performed By: [facility] [address] [place] [address] Mohs Surgeon/General Dermatologist: Nafisa Hilton MDEthyl Glucuronide (cutoff 500 ng/mL)Not DetectedNoUCHealth Greeley HospitalFentanyl (cutoff 2 ng/mL)Not Detected [facility] HospitalHydrocodone (cutoff 40 ng/mL)Not Detected [facility] HospitalHydromorphone (cutoff 40 ng/mL)Not Detected [facility] HospitalLorazepam (cutoff 60 ng/mL)Not DetectedSky Ridge Medical CenterMarijuana Metabolite (cutoff 20 ng/mL)Not Detected [facility] HospitalMDA (cutoff 200 ng/mL)Not DetectedNoUCHealth Greeley HospitalMDEA-Jane (cutoff 200 ng/mL)Not DetectedNoUCHealth Greeley HospitalMDMA-Ecstasy (cutoff 200 ng/mL)Not DetectedNoUCHealth Greeley HospitalMeperidine metabolite (cutoff 50 ng/mL)Not DetectedNoSCL Health Community Hospital - SouthwestMethadone Ql (U)Not DetectedNoUCHealth Greeley HospitalMethamphetamine (cutoff 400 ng/mL)Not DetectedNoUCHealth Greeley HospitalMethylphenidate (cutoff 100 ng/mL)Not DetectedWest Springs HospitalMidazolam (cutoff 20 ng/mL)Not DetectedNoUCHealth Greeley HospitalMorphine (cutoff 20 ng/mL)Not DetectedWest Springs HospitalNorbuprenorphine (cutoff 20 ng/mL)Not DetectedWest Springs HospitalNordiazepam (cutoff 50 ng/mL)Not DetectedWest Springs HospitalNorfentanyl (cutoff 2 ng/mL)Not DetectedWest Springs HospitalNorhydrocodone (cutoff 100 ng/mL)Not DetectedWest Springs HospitalNoroxycodone (cutoff 100 ng/mL)Not DetectedWest Springs HospitalNoroxymorphone (cutoff 100 ng/mL)Not DetectedWest Springs HospitalOxazepam (cutoff 50 ng/mL)Not DetectedWest Springs HospitalOxycodone (cutoff 40 ng/mL)Not DetectedWest Springs HospitalOxymorphone (cutoff 40 ng/mL)Not DetectedWest Springs HospitalPain Management Drug PanelSee BelowWest Springs HospitalComment on above:Result Comment: Methodology: Qualitative Enzyme Immunoassay and Qualitative Liquid Chromatography-Time [...] developed and its performance characteristics determined by [facility]. It has not been cleared or approved by the [place] Food and Drug Administration. This test was performed in a CLIA certified laboratory and is intended for clinical purposes.PCP (cutoff 25 ng/mL)Not DetectedNormal [facility] MedcenterPhentermine (cutoff 100 ng/mL)Not DetectedNoal [facility] MedcenterPropoxyphene (cutoff 300 ng/mL)Not DetectedNoal [facility] MedcenterTapentadol (cutoff 100 ng/mL)Not DetectedNoal [facility] MedcenterTapentadol-o-Sulf (cutoff 200 ng/mL)Not Detected [facility] HospitalTemazepam (cutoff 50 ng/mL)Not DetectedNoal [facility] MedcenterTramadol (cutoff 200 ng/mL)Not DetectedNoUCHealth Greeley HospitalZolpidem (cutoff 20 ng/mL)Not DetectedNoUCHealth Greeley HospitalCulture, Urineon [id number], UrineORDER#: [id number] ORDERED BY: GERRI SALMERON SOURCE: Urine Clean Catch COLLECTED: 07/12/20 20:39 ANTIBIOTICS AT MALIKA.: RECEIVED : 07/12/20 20:56 Culture, Urine FINAL 07/14/20 09:29 No growth 24 hoursNoUCHealth Greeley HospitalComment on above:Performed By: #### CXURN #### [facility] [address] [facility] [address] EX OB LESS THAN 14 WEEKS SINGLE OR FIRST GESTATIONon 06-29-2020 Addendum by Lauren Winters MD on 06/29/2020 4:37 PM ADDENDUM: IMPRESSION SHOULD READ: ULTRASOUND CONFIRMS A SINGLE LIVING INTRAUTERINE AT 9 WEEKS 6 DAYS +/- 1 WEEK. TRACE AMOUNT OF NONSPECIFIC FREE FLUID IN THE PELVIS. OTHERWISE UNREMARKABLE FIRST TRIMESTER ULTRASOUND. FOLLOW-UP ANATOMIC SURVEY IS RECOMMENDED[facility], [place], KYULTRASOUND CONFIRMS A SINGLE LIVING INTRAUTERINE AT 19 WEEKS 6 DAYS +/- 1 WEEK. TRACE AMOUNT OF NONSPECIFIC FREE FLUID IN THE PELVIS. OTHERWISE UNREMARKABLE FIRST TRIMESTER ULTRASOUND. FOLLOW- UP ANATOMIC SURVEY IS RECOMMENDEDSelect [facility], [place], KYEXAMINATION: US OB LESS THAN 14 WEEKS SINGLE OR FIRST GESTATION CLINICAL HISTORY: 25-year-old patient in the first trimester. Assess dates COMPARISONS: None available. FINDINGS: Transabdominal ultrasound of the maternal pelvis and Doppler ovarian assessments were performed. The gravid uterus measures 11.4 x 7.6 x 6.7 cm. Contains a single gestational sac in the body and fundus. Gestational sac contains a single fetus. Eagan-rump length averages 29.2 mm corresponding to a 9 week 6day gestation +/- 1 week. heart rate of [...] amount of nonspecific free fluid in the pelvis.[facility], [place], KYEdi, Chpo Incoming Radiant Results From [email or web address] - 06/29/2020 2:18 PM EDT EXAMINATION: US [...] fundus. Gestational sac contains a single fetus. Eagan-rump length averages 29.2 mm corresponding to a [...] FIRST TRIMESTER ULTRASOUND. FOLLOW-UP ANATOMIC SURVEY IS RECOMMENDED[facility] [place] OB LESS THAN 14 WEEKS SINGLE OR FIRST GESTATIONEXAMINATION: US OB LESS THAN 14 WEEKS SINGLE OR FIRST GESTATION CLINICAL HISTORY: 25-year-old patient in the first trimester. Assess dates COMPARISONS: None available. FINDINGS: Transabdominal ultrasound of the maternal pelvis and Doppler ovarian assessments were performed. The gravid uterus measures 11.4 x 7.6 x 6.7 cm. Contains a single gestational sac in the body and fundus. Gestational sac contains a single fetus. Eagan-rump length averages 29.2 mm corresponding to a [...] Signed by: Lauren Winters MD 06/29/20 Final resultNormGrand River HealthHCG Quanton [id number] Quant 22985.0 mIU/mLNPioneers Medical CenterComment on above:Result Comment: Gestational Age Expected HCG values (mIU/ml) 3 weeks 5-72 4 weeks 10-708 5 weeks 217-8,245 6 weeks 152-32,177 8 weeks 31,366-149,094 12 weeks 27,107-201,615 16 weeks 8,904-55,332 18 weeks 9,649-03,271Performed By: #### HCGQ #### [facility] [address] [place] [address] Cespt Metabolic Panelon 73-79-9515Ulnjl gap [Moles/Vol]14 mmol/L Normal9-15[facility] MedcenterComment on above:Performed By: #### BMP #### [facility] [address] [place] [address] Uuouvda [Mass/Vol]9.8 mg/dLNormal8.5-9.9[facility] MedcenterComment on above:Performed By: #### BMP #### [facility] [address] [place] [address] Hcspydux [Moles/Vol]99 mmol/DAxlgol80-445CwrykSterling Regional MedcenterComment on above:Performed By: #### BMP #### [facility] [address] [place] [address] GI2 [Moles/Vol]25 mmol/KJzjnnr78-04AtvgjSterling Regional [facility] Comment on above:Performed By: #### BMP #### [facility] [address] [place] [address] Sacypalatl [Mass/Vol]0.75 mg/dLNormal0.50-0.90[facility] MedcenterComment on above:Performed By: #### BMP #### [facility] [address] [place] [address] KZY/1.73 sq M predicted among blacks MDRD (S/P/Bld) [Vol rate/Area] mL/min/{1.73_m2}Normal>60[facility] MedcenterComment on above:Result Comment: >60 mL/min/1.73m2 EGFR, calc. for ages 18 and older using the MDRD formula (not corrected for weight), is valid for stable renal function.Performed By: #### BMP #### [facility] [address] [place] [address] GAF/1.73 sq M.predicted MDRD (S/P/Bld) [Vol rate/Area] mL/min/{1.73_m2}Normal>60[facility] MedcenterComment on above:Result Comment: >60 mL/min/1.73m2 EGFR, calc. for ages 18 and older using the MDRD formula (not corrected for weight), is valid for stable renal function.Performed By: #### BMP #### [facility] [address] [place] [address] Llzqggq [Mass/Vol]86 mg/tPYyejzh12-58AbkusChildren's Hospital Colorado Comment on above:Performed By: #### BMP #### [facility] [address] [place] [address] Iaoyhbtqz [Moles/Vol]3.6 mmol/LNormal3.4-4.9[facility] MedcenterComment on above:Performed By: #### BMP #### [facility] [address] [place] [address] Buagqp [Moles/Vol]138 mmol/QGdqvbl525-320PbnftSterling Regional MedcenterComment on above:Performed By: #### BMP #### [facility] [address] [place] [address] Aozt nitrogen [Mass/Vol]10 mg/dLNormal6-20[facility] MedcenterComment on above:Performed By: #### BMP #### [facility] [address] [place] [address] YHN w/out Reflexon [id number] Qn1.460 uIU/mLNormal0.440-3.86[facility] MedcenterComment on above:Performed By: #### TSH #### [facility] [address] [place] [address] Cpetdjmrz ([facility])on 49-78-1241Horynslru ([facility])Copy To: DOCTOR JXACUWO-BYGKAGIC-IVUTKN FINAL SURGICAL PATHOLOGY SFOYTSEE-[id number] FINAL DIAGNOSISTONSILS, TONSILLECTOMY- 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 The fragments weigh 13 g. They measure 3.3 x 2.2x 1.7 cm, and 4 x2.1 x 1.8 cm. On section the tissue is pedersen to pink, lobated, and soft.Maintenance Tech sections from both fragments are submitted in three cassettes.TASSummary of cassettes:A1, A2- promotions representative tonsil #1A3- promotions representative tonsil #2Signed Out by:HONOROI MANZANARESeported: 06/26/2018NoMyMichigan Medical CenterComment on above:Performed By: #### REFUGIO ####[facility] [address] [place], [place] [address]Ylegvva 07-16-2012 CONVERTED ELECTRONIC SIGNATUREMAU NOLEN CORPORATE TREASURER (Electronic signature on file) Final Signed Out: 07/16/2012 10:58 [facility] HospitalVERTED FINAL DIAGNOSISRelevant History: Comment: Please do an HPV reflex test if ASCUS. LMP--last 2 months; implanon. SPECIMEN ADEQUACY SATISFACTORY FOR EVALUATION. ENDOCERVICAL/TRANSFORMATION ZONE COMPONENTS ABSENT. INTERPRETATION/RESULT NEGATIVE FOR INTRAEPITHELIAL LESION OR MALIGNANCY. [facility] CenterCONVERTED GROSS DESCRIPTIONSPECIMEN: THIN PREP CERVICAL/ENDOCERVICALCleProMedica Bay Park HospitalVERTED ORDERING PROVIDEROrdering Provider: JANESSA ArenasUK HealthcareCONVERTED PAP DISCLAIMERThe Pap test serves as a screening tool for early detection of cervical cancer. The Pap test does not represent a final diagnostic test for cervical cancer. Furthermore, the Pap test was not designedto screen for other malignancies (endometrial, ovarian cancer, etc....). False negatives and false positives have occurred. If clinically indicated, further patient evaluation is recommended. [facility] Vital Signs Date TimeVital SignValuePerforming JnelyensmBhuehwtv19-33-9092 13:41-0400Body mass index (BMI) [Ratio]36.31 kg/p4Dmols Soni DO Work Phone: [facility] HospitalYlbwplgcvn60-65-0496 13:41-0400Body hzjtpo74.99 kgCorey Soni DO Work Phone: [facility] HospitalCkzxmalfiq17-60-4420 13:41-0400Diastolic blood qkbwbala33 mm[Hg]Yadielanika Shafer DO Work Phone: [facility] HospitalOpskgxzwxw17-06-1851 13:41-0400Systolic blood tyubtgqm465 mm[Hg]Yadielanika Shafer DO Work Phone: [facility] HospitalIkenrzkfwx62-93-2006 13:47-0400Body .6 cmPacc 1 Work Phone: [facility]09-12-2025 13:47-0400Body mass index (BMI) [Ratio]37.09 kg/m2Pacc 1 Work Phone: [facility]09-12-2025 13:47-0400Body temperature 98.01 [degF]Pacc 1 Work Phone: [place] [address]-12-2025 13:47-0400Body vjqitk75 kg Pacc 1 Work Phone: [facility]09-12-2025 13:47-0400Diastolic blood ehijimps11 mm[Hg]Pacc 1 Work Phone: [facility]09-12-2025 13:47-0400Heart rate78 /min Pacc 1 Work Phone: [place] [address]-12-2025 13:47-0400Respiratory rate 14 /minPacc 1 Work Phone: [place] [address]-12-2025 13:47-3360IkY0% (BldA) [Mass fraction]97 %Pacc 1 Work Phone: [place] [address]-12-2025 13:47-0400Systolic blood gxficifr442 mm[Hg]Pacc 1 Work Phone: [facility]09-09-2025 14:28-0400Body lgfqeh047.6 Lawrence Malcolm MD Work Phone: [facility]09-09-2025 14:28-0400Body mass index (BMI) [Ratio]38.58 kg/m2Janet Malcolm MD Work Phone: [facility]09-09-2025 14:28-0400Body temperature 97.2 [degF]Janet Malcolm MD Work Phone: [phone]09-09-2025 14:28-0400Body ohdlgg864 kg Janet Malcolm MD Work Phone: [phone]09-09-2025 14:28-0400Diastolic blood pfvxbyui14 mm[Hg]Janet Malcolm MD Work Phone: [phone]09-09-2025 14:28-0400Heart rate66 /min Janet Malcolm MD Work Phone: [phone]09-09-2025 14:28-1377MsN5% (BldA) [Mass fraction]99 %Janet Malcolm MD Work Phone: [facility]09-09-2025 14:28-0400Systolic blood zjkiwzhu054 mm[Hg]Janet Malcolm MD Work Phone: [facility]08-19-2025 12:00-0400Body mass index (BMI) [Ratio]39.64 kg/h8Dozhm Soni DO Work Phone: [facility] HospitalWkryhtpcrw16-65-8411 12:00-0400Body sppzru652.52 kgCorey Soni DO Work Phone: [facility] HospitalFyijjuhwmm38-00-7284 12:00-0400Diastolic blood mjfqfoxd84 mm[Hg]Yadiel Soni DO Work Phone: [place] [address]Uyrigkcitr26-44-1461 12:00-0400Systolic blood mm[Hg]Yadiel Soni DO Work Phone: [facility] HospitalQmkknrxggw85-92-3160 10:21-0400Body cllezm568.[address] Work Phone: [address]01-2025 10:21-0400Body mass index (BMI) [Ratio]37.08 kg/y5Cpkqd Jacquie RD Work Phone: [phone] hospitaland Afthlw89-59-2831 10:21-0400Body yezxiv54.[address] Work Phone: [facility] ClinicComment on above:kkibdi73-56-6486 13:20-0400Body .[address] Work Phone: Rsamaritan hospitaland Toplub74-56-7939 13:20-0400Body mass index (BMI) [Ratio]37.59 kg/n5Lsbuz Jacquie RD Work Phone: EMedina HospitalNcufdh51-20-7603 13:20-0400Body lctjuu91.[address] Work Phone: [phone] ClinicComment on above:yvswfs99-01-1458 14:38-0400Body lugtuk074.6 cmShankar Britt MD Work Phone: [facility]04-09-2025 14:38-0400Body mass index (BMI) [Ratio]37.66 kg/m9UsdxbShankar Britt MD Work Phone: [facility]04-09-2025 14:38-0400Body .52 Sari Britt MD Work Phone: [facility]04-09-2025 14:38-0400Diastolic blood mm[Hg]Shankar Britt MD Work Phone: [facility]04-09-2025 14:38-0400Heart rate81 /min Shankar Britt MD Work Phone: [facility]04-09-2025 14:38-0400Systolic blood efakuhaz792 mm[Hg]Shankar Britt MD Work Phone: [facility]03-10-2025 13:31-0400Body dvmlun212 cm Nelad Uribe [employer] Work Phone: [facility] HospitalHzwrrkjjoe81-16-0731 13:31-0400Body mass index (BMI) [Ratio]37.7 kg/x1MvuooNelda Uribe [employer] Work Phone: [place] [address]Yerzhxymre86-97-8723 13:31-0400Body temperature 98.8 [degF]Nelda Uribe [employer] Work Phone: [place] [address]Jtwyznxpws33-52-2646 13:31-0400Body vujfxh30.53 kgNelda Uribe [employer] ENGINEER Work Phone: [place] [address]Xvrodfwkdx12-74-9158 13:31-0400Diastolic blood pjtiyohd79 mm[Hg]Nelda Uribe [employer] Work Phone: [phone] [place] [address]-10-2025 13:31-0400Heart rate67 /min Nelda Uribe [employer] Work Phone: [phone] [place], [place] [address]Znzvqgmnek77-10-3352 13:31-1076EmS3% (BldA) [Mass fraction]96 %Nelda Uribe [employer] ENG[employer] Work Phone: [facility] HospitalRvfcyhqsrr54-04-3704 13:31-0400Systolic blood wccphkva970 mm[Hg]Nelda Uribe [employer] ENG[employer] Work Phone: NOAlvin J. Siteman Cancer CenterPehmtspfsj96-11-5487 09:03-0500Body qyqacy[address] Work Phone: [phone] Zzgizl55-04-8528 09:03-0500Body csdniv56.44 kgAmber Jacquie BARRETT Work Phone: [place] Jmwygs14-06-0783 09:37-0500Body dfptya472 cm Nataliia Ramos MD Work Phone: [place] Uknrdi85-38-9093 09:37-0500Body veybzy17.71 kgNataliia Ramos MD Work Phone: [place] Womvpl48-91-0142 09:37-0500Diastolic blood mhonfewf58 mm[Hg]Nataliia Ramos MD Work Phone: [place] Uvoerc46-40-4263 09:37-0500Heart rate93 /min Nataliia Ramos MD Work Phone: [place] Xnarsb38-71-8016 09:37-0500Systolic blood hrczexov422 mm[Hg]Nataliia Ramos MD Work Phone: [place] Rfhvgo56-57-0625 08:00-0400Body temperature 97.7 [degF]Services [employer] Work Phone: [phone]07-24-2022 08:00-0400 Diastolic blood gqotbunm12 mm[Hg]Services [facility] Work Phone: [phone] [address]07-24-2022 08:00-0400 Heart rate63 /[employer] Work Phone: [phone])40832 [address]07-24-2022 08:00-0400 Respiratory rate16 /[employer] Work Phone: [phone])51132 [address]07-24-2022 08:00-0400 SaO2% (BldA) [Mass fraction]97 %Services [employer] Work Phone: 1([phone] [address]07-24-2022 08:00-0400 Systolic blood iqjmykfk307 mm[Hg]Services [employer] Work Phone: [phone])47832 [address]07-21-2022 20:51-0400 Body pplcos851.02 [facility] Work Phone: [phone] [place], [place] 2862207-21-2022 20:51-0400 Body okdnwu35.7 kgServices [employer] Work Phone: 1([phone] [place], [place] 2862207-18-2022 13:50-0400 Respiratory rate16 /[employer] Work Phone: 1(345)21332 [address]07-18-2022 13:30-0400 Body igioexrbtat15.1 [degF]Services [employer] Work Phone: 1(838)639-[address] [place], [place] 2862207-18-2022 13:23-0400 Body vvtqba522.02 [employer] Work Phone: [facility]07-18-2022 13:23-0400 Body jjhluc67.7 kgServices [employer] Work Phone: [facility]07-18-2022 13:21-0400 Diastolic blood bezijgwb85 mm[Hg]Services [facility] [employer] Work Phone: [facility]07-18-2022 13:21-0400 Heart rate67 /minServices [employer] Work Phone: [facility]07-18-2022 13:21-0400 Systolic blood hgiiskgy166 mm[Hg]Services [facility] Work Phone: [facility]04-02-2021 09:15-0400 Body Puzcepcwrwt02.01 [degF][employer] Phone: 1([phone]) 391-931704-02-2021 09:15-0400BP Vjllqlzqz07 mm[Hg][employer] Work Phone: 1(698) 377-532304-02-2021 09:15-0400BP Bruoszqg893 mm[Hg][employer] Phone: 1(564) 951-497304-02-2021 09:15-0400Pulse (Heart Rate)51 /[facility] [employer] Phone: 1(389) 146-172904-02-2021 09:15-0400Respiratory Rate16 /[facility] [employer] Work Phone: 1(362) 977-336704-01-2021 16:26-0400Pulse Muijeynw84 %[employer] Phone: 1(656) [phone] 20:15-0400BMI (Body Mass Index)38 kg/m2 [employer] Phone: 1(948) [phone] 20:15-0400Body .3 [facility] [employer] Phone: 1(525) 176-801503-31-2021 20:15-7357Tmerhj898 cmHeidi [facility] Work Phone: 1(486) 186-142210-29-2020 14:35-0400Body lhbidf490.0 lbs.[facility]10-26-2020 20:32-0400Body frocws662WoflrSterling Regional MedcenterComment on above:Performed By: #### [address] #### [facility] [address] [place] [address] Encounters Encounter DateEncounter TypeCare ProviderFacilityStart: 08-05-2025 End: 72-99-6291umqciybwreUCTVGXT PETERSONFacility:[facility] Start: 07-27-2025 End: 51-89-6912Flkqgdbjl Result EncounterCorey Soni DO Work Phone: noms External Department UnsolicitedStart: 07-27-2025 End: 29-17-7397Qowvsvfxw Result EncounterCorey Soni DO Work Phone: noms External Department UnsolicitedStart: 07-15-2025 End: 68-52-4169efblzqjsnwBOHS ROSSIFacility:[facility]tart: 07-08-2025 End: 13-84-5925ziztjcjiwbITGMM FAZIONot AvailableStart: 07-08-2025 End: 46-77-3810Qlzeaw outpatient visit 15 minutesCorey Soni DO Work Phone: noms Malissa OBGYNComment on above:Pre-op examination; Dyspareunia in female; Hymenal remnantStart: 07-08-2025 End: 31-99-9636Tixviypvsiuoq examination doneCorey Soni DO Work Phone: noME HealthcareStart: 07-06-2025 End: 77-48-8216lixgtqicgxYBAPFBA LLOYDFacility:[facility] Hospitaltart: 06-29-2025 End: 78-15-0770Nilclhwoqe and management of inpatientTOMS MALCOLM [facility]Start: 34-92-3758Lcbugruau for other preprocedural examinationRAMYA MEMBRENOGenesis Hospital: 06-26-2025 End: 85-54-7190HRUAmfv [place] 1 Work Phone: Pre AnesthesiaComment on above:Pre-op examination (Primary Dx); Hypertension, unspecified type; PCOS (polycystic ovarian syndrome); Anxiety disorder, unspecified type; Obesity, Class II, BMI 35-39.9Start: 06-26-2025 End: 22-85-7954Ljhsfyxnaqlaa examination donePacc [place] 1 Work Phone: [facility] Work Phone: Start: 06-24-2025 End: 09-02-9043Xxdjuxyoz to same day surgery Juan Kearney RD Work Phone: General SurgeryComment on above:Reassessment; Patient EducationStart: 06-24-2025 End: 31-00-1110anytwiotseMkty Rossi RD Work Phone: General SurgeryStart: 06-23-2025 End: 77-15-0579vtaqeikmkxQQCO AUGUSTINFacility:[facility] Hospitaltart: 06-23-2025 End: 90-59-9415Zeluoqj encounter procedureJanet Malcolm MD Work Phone: General SurgeryComment on above:Obesity, Class II, BMI 35-39.9 (Primary Dx); Pre-op testing; Morbid obesity due to excess calories (HCC)Start: 06-23-2025 End: 45-08-8901Jxjqzwa encounter statusJanet Malcolm MD Work Phone: [facility]: 06-18-2025 End: 73-08-8408Poytyegpy to same day surgery Vivian Malcolm MD Work Phone: General SurgeryComment on above:06/23 VisitStart: 06-18-2025 End: 90-71-2711S-mail encounter from caregiverJanet Malcolm MD Work Phone: [facility] SurgeryStart: 06-12-2025 End: 43-87-2248Enjveugvd encounterJanet Maloclm MD Work Phone: General SurgeryComment on above:Scheduling Surgery; Addiction Psychiatrist - OtherStart: 06-11-2025 End: 46-46-8250Fsuzhktml encounterJanet Malcolm MD Work Phone: General SurgeryComment on above:Addiction Psychiatrist - Other; Returning Patient's CallStart: 06-02-2025 End: 82-32-8970Itqfjjeb Result EncounterCorey Soni DO Work Phone: noms External Department UnsolicitedStart: 06-02-2025 End: 93-02-3131Jptnomlo Result EncounterCorey Soni DO Work Phone: noms External Department UnsolicitedStart: 06-02-2025 End: 42-10-6302kzphzcuynjQUZIX FAZIONot AvailableStart: 06-02-2025 End: 65-30-1638Retlwk outpatient visit 15 minutesCorey Soni DO Work Phone: noms [place] OBGYNComment on above:Skin tag; Exposure to STD; Vaginal discharge; Hymenal remnantStart: 05-08-2025 End: 66-61-2276Pkcohpfox St[facility] Hospitalarmando Godoy [facility] Work Phone: Denmqm ClinicStart: 31-03-6694sujcagujvsGcoks KanSouthwell Medical Center DEPARTMENTStart: 04-23-2025 End: 95-37-2930Ogpivzcwd to same day surgery centerJanet Malcolm MD Work Phone: General SurgeryComment on above:Insurance AuthorizationStart: 04-23-2025 End: 29-88-3327uxemqyutofVfpp Augustin MD Work Phone: General SurgeryStart: 03-10-2025 End: 97-31-5111Xmfmie-up Tristan Britt MDGeneral Surgery Start: 03-10-2025 End: 91-65-2210Qszcoaucb Tristan Britt MD Work Phone: EndocrinologyComment on above:Patient QuestionStart: 02-24-2025 End: 48-58-2231Qznrqrmov encounterSelfGeneral SurgeryStart: 02-12-2025 End: 12-94-2115Kolotffwo to same day surgery Celestine Dhillon RD Work Phone: [facility] SurgeryComment on above:Patient Education; ReassessmentStart: 02-12-2025 End: 94-99-2515tntqmixxskYwvue Sommer RD Work Phone: [facility] SurgeryStart: 33-79-1386dtfvmoouilYHHHYAlva BRITTFacility:[facility] HospitalStart: 01-28-2025 End: 62-69-7999ulgbootnxyHZVJSTojna BRITTFacility:[facility] HospitalStart: 15-03-2923Rpqaekytz for other preprocedural examinationSHANKAR BRITT [facility] Hospitaltart: 01-28-2025 End: 98-07-5682Ewbkiik encounter procedureNurse Card [facility] Rej Work Phone: CardiologyComment on above:Encounter for other preprocedural examinationStart: 01-28-2025 End: 26-13-2729Sqonjug encounter statusNurse Rej Work Phone: [facility]tart: 01-26-2025 End: 39-68-2367nidmusplvyHYNWET J HEINBERGFacility:[facility] Start: 01-23-2025 End: 47-42-7778Vudeyopbb to same day surgery Celestine Dhillon RD Work Phone: [facility] SurgeryComment on above:Obesity, Class II, BMI 35-39.9 (Primary Dx); Dietary counseling and surveillanceStart: 01-23-2025 End: 72-07-0713wtsllkedeaLDILJ SOMMERFacility:[facility] Hospitaltart: 01-23-2025 End: 05-81-4263Gtafhcwetdvq consultation with Darlene Dhillon RD Work Phone: [facility] SurgeryStart: 01-21-2025 End: 39-32-4749cebxwzmaysHCXHLTonja BRITTFacility:[facility] Hospitaltart: 01-21-2025 End: 61-44-1835Dnhuaia encounter Bev Britt MD Work Phone: [facility] SurgeryComment on above:Class 2 severe obesity with serious comorbidity and body mass index (BMI) of 37.0 to 37.9 in adult, unspecified obesity type (HCC) (Primary Dx); Encounter for other preprocedural examination; Unspecified essential hypertension; Fatty liver; Dyslipidemia; PrediabetesStart: 01-21-2025 End: 00-65-9124Kliqgwg encounter Fernie Britt MD Work Phone: [facility]art: 01-20-2025 End: 74-66-6802Tjvisnkbm to same day surgery Vivian Malcolm MD Work Phone: [facility] SurgeryComment on above:Morbid obesity (HCC) (Primary Dx)Start: 01-20-2025 End: 16-78-9757rslcfzbrvrKBAP AUGUSTINFacility:[facility] Hospitaltart: 01-20-2025 End: 92-86-5496Hiotbgjgbdkn consultation with Keke Malcolm MD Work Phone: [facility] SurgeryStart: 01-08-2025 End: 89-92-8174Vuttynkia to same day surgery Marci Montoya MD Work Phone: [facility] SurgeryComment on above:Morbid obesity (HCC) (Primary Dx)Start: 01-08-2025 End: 10-46-8722ctlqigprvvRMX AMINIANFacility:[facility] Hospitaltart: 01-08-2025 End: 56-53-4846Evjuzotnethc consultation with Clementine Montoya MD Work Phone: [facility] SurgeryStart: 12-22-2024 End: 27-22-6980Nikpxk outpatient visit 25 Nick Uribe NP Work Phone: NOMS [facility] FM 230Comment on above:Obesity (BMI 30-39.9) (Primary Dx); Insulin resistance; Low HDL (under 40) (CMS/HCC)Start: 12-22-2024 End: 81-32-7388pssdjrctcaFROHF L LUBChristopher AvailableStart: 55-67-2830Rrxcnxxbc encounterJanet Malcolm MD Work Phone: General SurgeryComment on above:No Show (EGD at [facility])Start: 01-21-2024 End: 48-60-4104Ekruqzfjrt hospital visit by physicianJourdan Carpio [facility] Work Phone: [facility] Radiology GeneralComment on above:Class 2 severe obesity with serious comorbidity and body mass index (BMI) of 37.0 to 37.9 in adult,unspecified obesity type (HCC) [E66.01, Z68.37]Start: 12-21-2023 End: 92-76-7708wxdgrchyohAjgm Augustin MD Work Phone: Endocrinology BMIComment on above:Obesity, Class II, BMI 35-39.9 (Primary Dx)Start: 12-21-2023 End: 99-25-8555Awsvqdjkhcjh consultation with patientJanet Malcolm MD Work Phone: [facility] ARANDA [facility]ENTERtart: 12-13-2023 End: 88-00-7738ggezzxbimuUflon Sommer RD Work Phone: General SurgeryComment on above:Obesity, Class II, BMI 35-39.9 (Primary Dx); Dietary counseling and surveillanceStart: 12-13-2023 End: 62-76-0639Ruqyccamyxsi consultation with Darlene Dhillon RD Work Phone: [facility] MAINStart: 11-29-2023 End: 12-51-0300Xpuchsg encounter Damaso Ramos MD Work Phone: EndocrinologyComment on above:Class 2 severe obesity with serious comorbidity and body mass index (BMI) of 35.0 to 35.9 in adult, unspecified obesity type (HCC) (Primary Dx)Start: 07-09-2023 End: 23-06-1099Awafmccak department patient visitServices [facility]tart: 70-07-7978nxbifnvpbfGA ADEOLA Desir WESTFacility:C9Ernex: 05-04-2022 End: 14-29-5763Rtalxftazg and management of inpatientServices [facility] Health Work Phone: [facility] [place] Start: 05-01-2022 End: 45-54-2235Plznhrt encounter procedureServices [facility] Work Phone: [facility] Labor - O[facility]P Start: 04-13-2022 End: 78-80-3568Dkxgbwve ReferredServices Family Health Work Phone: [facility]Lab [facility] CampusStart: 02-27-2022 End: 87-55-3232diexjdcwgkVRUEXMCL RINKESFacility:Q8Gqlrg: 01-12-2021 End: 87-99-7715Zabgqwtrnj and management of inpatientHEIDI D Community Hospitaltart: 01-12-2021 End: 79-97-6782Iiyrzjkpnu and management of inpatientHeidi D Emmetti Work Phone: [facility] Labor & DeliveryStart: 11-04-2020 End: 42-65-6628Bvtorit encounter procedureHEIDI D Community Hospitaltart: 11-04-2020 End: 73-70-1226Osgdoaahgw hospital visit by physicianLorain Ultrasound [facility] HospitalBrain Sentryain UltrasoundComment on above:Encounter for supervision of other normal in second trimester; 25 weeks gestation of pregnancyStart: 09-06-2020 End: 43-34-2778Hczjdyb encounter procedureHEIDI D Community Hospitaltart: 09-06-2020 End: 37-19-0309Wilecakhdu hospital visit by physicianLorain Ultrasound [employer] [place] UltrasoundComment on above:Encounter for supervision of other normal in second trimester; 15 weeks gestation of pregnancyStart: 06-29-2020 End: 80-66-6829Hufqadl encounter procedureHEIDI D Community Hospitaltart: 06-29-2020 End: 52-35-6373Wrrmqeyqth hospital visit by physicianLorain Ultrasound [address] [place] [address] UltrasoundComment on above: test positive; AmenorrheaStart: 45-27-5054Zrdenbd encounter procedureOrlando Lo Facility:9242Start: 84-82-2293Hdhkmur encounter procedureMiclotus Salazar Facility:9347Start: 12-96-2598Ojdwumb encounter procedureMiclotus Salazar Facility:9347Start: 55-23-8048Bubpopj encounterMARC GUAYFacility:[facility] SYSTEMSStart: 05-99-1198Xaymsml encounter procedureMarc Wallace GuayFacility:9211 Start: 45-15-0139Uaaynoh encounter procedureMarc Wallace GukhaiFacility:9211Start: 93-72-9327Vxyspnt encounter procedureMarc Wallace LoFacility:9242Start: 69-72-9099Hwtbfoz encounter procedurePatricia J LupeFacility:9347Start: 41-85-4471Mjwhmvc encounter procedurePatricia J LupeFacility:9347Start: 62-36-2438Ieyxory encounter procedureMarc Wallace LoFacility:9242Start: 27-33-1928Hhywldm encounter procedureMarc Wallace GukhaiFacility:9242Start: 05-50-1285Bbmfqkh encounter procedurePatricia J LupeFacility:9347Start: 07-11-2012 End: 01-09-8524Jfmumpb encounter procedureThscotty Carlsondennisanabel Work Phone: [facility] ClinicStart: 17-53-2148Hpnmicu OnlyThscotty Carlsondennisanabel Work Phone: [facility] Procedures DateProcedureProcedure DetailPerforming ClinicianStart: 35-49-0293WUE 12-LEAD Yadiel Shafer DO Work Phone: Start: 04-85-4926Yngfcafg screenTOMS AUGUSTINComment on above:Order Comment: Specimen Type: BLOOD SPECIMEN Ordering Facility: [facility] Address: [address] [place], [place] [address]Performed By: #### TSCR #### [facility] CLIA [id number] [place] [address] AMERICAStart: 78-75-8153IWKVUHOEW VAGINITIS (HTRX)Yadiel Shafer DO Work Phone: Start: 05-08-2025 End: 45-16-9476Ynlyqiqknraur of current medicationsKaron Godoy [employer] Work Phone: Start: 05-08-2025 End: 57-60-9110pidyuhmfyo, erupted tooth or exposed root (elevation and/or forceps removal)Karon Godoy DDS Work Phone: Start: 05-08-2025 End: 12-18-9816awuv hygiene instructionsKaron Godoy [employer] Work Phone: Start: 61-24-7602Ppb routine ecg w/least 12 lds i&r Gerson Britt MD Work Phone: Start: 28-09-6078Emhmsnwpgs exam chest 2 viewsEmily Billie ADDICTIONS RECOVERY SPECIALIST.SIGNS CLEANER Work Phone: start: 13-31-4488Sjotw count complete automatedHeidi Lacey Salmeron Work Phone: Start: 80-21-0013Nbfentmr screenHeidi RosettaiStart: 35-65-3959Urqtwure rubellaHedmitry Salmeron Work Phone: Start: 78-04-0420Xnvyj count complete auto&auto difrntl wbcHeidi Lacey Salmeron Work Phone: Start: 99-86-4134Mjcui typing serologic aboHeidi Lacey Salmeron Work Phone: Start: 66-45-5366Xqnh ia hepatitis b surface antigen Gerri Lacey Jaron Work Phone: Start: 02-87-2605Vgcbnyak test non-treponemal antibody qualHeidi Lacey Jaron Work Phone: Start: 76-21-7378Oivtajilnvjkl metabolic panelHeidi Lacey Jaron Work Phone: Start: 30-79-9455Ixvq screen class list aHeiaston Salmeron Work Phone: Start: 83-04-4418Gbdhkppvbc microscopic onlyGerri Salmeron Work Phone: Start: 01-74-7604Tptvi dip stick/tablet rgnt auto w/o microscopyHeidi Lacey Salmeron Work Phone: Start: 70-15-9804BUTFO-19, RAPIDHeidi Lacey Salmeron Work Phone: Start: 33-52-9466Ye preg uterus real time w/image dcmtn transvagHandi Salmeron Work Phone: Start: 33-09-7916Fe uterus limited 1/> fetusesHedmitry Salmeron Work Phone: Start: 18-24-6920Hx preg uterus after 1st trimest 10/15 gestationHedmitry Salmeron Work Phone: Start: 11-47-8123FIBRKKEED REPORTHEIDI LENCOSKIStart: 08-04-9868CPWWYSEGS REPORTHpf ScanningStart: 25-26-5952Te uterus 14 wk transabdl 10/15 gestatHEIDI JOECOSKIStart: 90-37-2592Tf uterus 14 wk transabdl 10/15 gestatHandi Salmeron Work Phone: Start: 92-68-2266KDZACMKGE CYTOLOGY GYNThomas Juan [facility] Work Phone: Start: 22-89-4331Kqmucelqkwj observation [Identifier] in Cervix by Cyto Sierra Uribe NP Work Phone: SARS Antigen (LFIA)Services [facility] Work Phone: Streptococcus agalactiae cultureServices [facility] Work Phone: Plan of Treatment DateCare ActivityDetailAuthorStart: 13-86-9810Lkgoz microalbumin profile DTaP,Tdap,Td Vaccine (3 - Td or Tdap)[facility] ClinicStart: 89-72-9546Cqibpmsge for malignant neoplasm of cervixNOME HealthcareStart: 16-21-6960IEwX/Tdap/Td vaccine (2 - Td)DTaP/Tdap/Td vaccine (2 - Td)[place], [place]Start: 10-05-2025 End: 14-10-8740Jsgerahdh to same day surgery myenww0210/05/2025 2:30 PM EST [facility] General Surgery [address] [place] [address] Randa Boudreaux, LIANNA.SIGNS CLEANER [address] [id number] 3 month post op LRYGB 07/06/25 TAGeneral SurgeryComment on above:3 month post op LRYGB 07/06/25 TAStart: 09-30-2025 End: 45-18-3902Jkudbzqtj to same day surgery rnkdis9909/30/2025 3:00 PM EST Education General Surgery [address] [place] [id number] Ramya Garnett, RD [address] [place], [place] [id number] 3 month post op LRYGB 07/06/25TAGeneral SurgeryComment on above:3 month post op LRYGB 07/06/25 TAStart: 08-20-2025 End: 86-77-1499Lmjyqrx encounter uuberguze95/06/2025 2:30 PM EST Office Visit RIN ARORA [address] [place] [id number] Belinda Douglas PA [address] [place] [address] RIN VALERAtart: 08-10-2025 End: 26-46-4769Ycrimul encounter rsyxfyvwp21/27/2025 11:00 AM EDT Office Visit General Surgery [address] [place] [address] Randa Boudreaux, ADDICTIONS RECOVERY SPECIALIST.SIGNS CLEANER [address] [address] 1 month post op LRYGB 07/06/25 TAGeneral SurgeryComment on above:1 month post op LRYGB 07/06/25 TAStart: 07-22-2025 End: 37-62-2973Acsglhnmf to same day surgery bzrdsc4807/22/2025 11:00 AM EDT Education General Surgery [address] [place] [id number] Ramya Bazan, RD [address] [place] [address] Post Op LRYGB 07/06/25 TAGeneral SurgeryComment on above:Post Op LRYGB 07/06/25 TAStart: 40-50-8294Mypfgsuqy for malignant neoplasm of cervixPap TestingKettering Health Behavioral Medical Center Start: 07-13-2025 End: 70-22-1232Xqkggvi encounter lohglniqx28/29/2025 10:30 AM EDT Office Visit General Surgery [address] [place] [address] Randa Boudreaux, ADDICTIONS RECOVERY SPECIALIST.SIGNS CLEANER [address] [address] Post op LRYGB 07/06/25 TAGeneral SurgeryComment on above:Post op LRYGB 07/06/25 TAStart: 07-08-2025 End: 12-38-4558Iluaolv encounter cnskywpvk96/24/2025 1:20 PM EDT Consult RIN ARORA [address] [place] [address] Yadiel Shafer DO [address] [place] [address] RIN PARADANStart: 07-06-2025 End: 60-96-2150Shmrfphyz to same day surgery tgemgy0007/06/2025 10:30 AM EDT - 07/06/2025 12:45 PM EDT Surgery [facility] Operating Room [address] [place] [address] [place] [address] [facility] [address] [facility] [address] [place] [address] LAPAROSCOPIC LONGITUDINAL GASTRECTOMY, GASTRIC RESTRICTIVE PROCEDUREFaWorcester City Hospital Operating RoomComment on above:LAPAROSCOPIC LONGITUDINAL GASTRECTOMY, GASTRIC RESTRICTIVE PROCEDUREStart: 07-06-2025 End: 19-11-7266Zgsd gstrc rstrictiv px longitudinal gastrectomyLAPAROSCOPIC LONGITUDINAL GASTRECTOMY, GASTRIC RESTRICTIVE PROCEDURE Morbid obesity due to excess calories (HCC) 07/06/2025 10:30 AM EDTFV ORStart: 10-60-9507Uscbjlbcul hospital visit by owicrmfrb12/22/2025 10:30 AM EDT Hospital Encounter [facility] Operating Room [address] [place] [address] [place] [id number] [place] [address] [facility] [address] [place] [address] Morbid obesity due to excess calories (HCC) [E66.01][facility] Operating RoomComment on above:Morbid obesity due to excess calories (HCC) [E66.01]Start: 07-01-2025 End: 18-13-6531Ztxvuxp encounter zxhslkibs38/17/2025 11:15 AM EDT Office Visit RIN ARORA [address] [place] [address] Yumiko Brown DO [address] [place] [address] RIN Reinoso OBGYNStart: 06-30-2025 End: 00-36-0736dcyygvhiwy37/16/2025 8:30 AM EDT Results Only [place] [facility] [address] [place] [address] Pre OpLorain [facility] LaboratoryComment on above:Pre OpStart: 06-30-2025 End: 86-52-5770Kiqtvmrplp fctssbgewjzi65/16/2025 7:40 AM EDT PAT Pre Anesthesia [address] [place] [address] 1, Pacc [place] [address] [facility] [place] [address] DOS 07/06Pre AnesthesiaComment on above:DOS 07/06Start: 06-29-2025 End: 55-36-9869Rotauduqo to same day surgery [facility] Operating RoomComment on above:LAPAROSCOPIC LONGITUDINAL GASTRECTOMY, GASTRIC RESTRICTIVE PROCEDUREStart: 06-29-2025 End: 34-27-1075Bztd gstrc rstrictiv px longitudinal gastrectomyFV ORStart: 73-40-9865Bnqiouhedj hospital visit by [facility] Operating Room Comment on above:Morbid obesity due to excess calories (HCC) [E66.01]Start: 06-26-2025 End: 51-12-7349bkctfgyivq49/12/2025 2:30 PM EDT Results Only [facility] [address] [place] [address] pre-op labs [facility] LaboratoryComment on above:pre-op labsStart: 06-26-2025 End: 82-61-5710Klshqaogva rsmafmhdvumk96/12/2025 1:40 PM EDT PAT Pre Anesthesia [address] [facility] [place] [address] 1, Pacc [place] [address] [facility] [place] [address] DOS 06/29Pre AnesthesiaComment on above:DOS 06/29Start: 06-24-2025 End: 12-93-8738Ctwmwgvji to same day surgery zwzrsw3506/24/2025 9:00 AM EDT Education General Surgery [address] [place] [address] Ramya Garnett, RD [address] [place] [address] pre op General SurgeryComment on above:pre opStart: 06-23-2025 End: 66-88-0174Qedictc encounter jeijlweoi46/09/2025 2:00 PM EDT Office Visit General Surgery [address] [facility] [address] [place] [address] [place] [address] [place] [address] Pre OpGeneral SurgeryComment on above:Pre OpStart: 58-05-6627Wvkdaujtn vaccinationEmmitsburg ClinicStart: 84-65-8546Boqbnezedz hospital visit by jknajggkz19/10/2025 Hospital Encounter [facility] Operating Room [address] [place] [address] [place] [address] [place] [address] Morbid obesity due to excess calories (HCC) [E66.01][facility] Operating RoomComment on above:Morbid obesity due to excess calories (HCC) [E66.01]Start: 92-21-5617QpqnColorado [facility] Work Phone: Start: 02-19-2025 End: 99-96-1784Ltlacqidf to same day surgery gskrrz5402/19/2025 9:45 AM EDT Education General Surgery [address] [place] [id number] Laure Dhillon, RD [address] [place] [id number] pre op f/u #3General SurgeryComment on above:pre op f/u #3Start: 02-12-2025 End: 85-06-4542Ewpdfstuw to same day surgery mdcxjq3502/12/2025 9:45 AM EDT Education General Surgery [address] [id number] Laure Dhillon, RD [address] [id number] pre op f/u #3General SurgeryComment on above:pre op f/u #3Start: 02-05-2025 End: 34-54-4259Yzyyppi encounter procedureTooele Valley Hospital Radiology GeneralComment on above:Encounter for other preprocedural examination [Z01.818]XR before US Start: 01-28-2025 End: 88-37-3344Gdudhhx encounter procedureTooele Valley Hospital Draw StationComment on above:labsEncounter for other preprocedural examination [Z01.818]Start: 01-23-2025 End: 94-61-4030Ftbntjiuu to same day surgery jgvnje4301/23/2025 1:15 PM EDT [facility] General Surgery [address] [place] [address] Laure Dhillon, RD [address] [place] [address] Red/Malcolm/0 Diet/UHCGeneral SurgeryComment on above:Red/Malcolm/0 Diet/UHCStart: 01-21-2025 End: 09-68-3852Nmsktyv encounter jllujqubr94/09/2025 2:15 PM EDT Office Visit General Surgery [address] [place] [address] Shankar Fuentes MD [address] [place], [place] [id number] Red/Malcolm/0 Diet/UHCGeneral SurgeryComment on above: Red/Malcolm/0 Diet/UHCStart: 01-21-2025 End: 057036-ctdkcmtezwjoxi D3 [Mass/volume] in Serum or PlasmaVITAMIN D 25 HYDROXY Lab Routine Encounter for other preprocedural examination Expected: 01/21/2025, Expires: 04/22/2025[facility] ClinicComment on above:Expected: 01/21/2025, Expires: 04/22/2025Start: 01-21-2025 End: 32-20-8188XDK W Auto Differential panel - BloodCOMPLETE BLOOD COUNT AND DIFFERENTIAL Lab Routine Encounter for other preprocedural examination Expected: 01/21/2025, Expires: 04/22/2025[facility] Work Phone: Comment on above:Expected: 01/21/2025, Expires: 04/22/2025Start: 01-21-2025 End: 27-13-8218Lkdfaqmml (Vitamin B12) [Mass/volume] in Serum or PlasmaVITAMIN B12 Lab Routine Encounter for other preprocedural examination Expected: 01/21/2025, Expires: 04/22/2025[facility] ClinicComment on above:Expected: 01/21/2025, Expires: 04/22/2025Start: 01-21-2025 End: 62-26-3697Abyjxooueebhs metabolic 2000 panel - Serum or PlasmaCOMPREHENSIVE METABOLIC PANEL Lab Routine Encounter for other preprocedural examination Expected: 01/21/2025, Expires: 04/22/2025[facility] ClinicComment on above: Expected: 01/21/2025, Expires: 04/22/2025Start: 01-21-2025 End: 87-61-2943Oonegart [Mass/volume] in Serum or PlasmaFERRITIN Lab Routine Encounter for other preprocedural examination Expected: 01/21/2025, Expires: leveland ClinicComment on above:Expected: 01/21/2025, Expires: 04/22/2025Start: 01-21-2025 End: 18-83-7572Pnecqc [Mass/volume] in Serum or PlasmaFOLATE, SERUM Lab Routine Encounter for other preprocedural examination Expected: 01/21/2025, Expires: 04/22/2025[facility] ClinicComment on above:Expected: 01/21/2025, Expires: 04/22/2025Start: 01-21-2025 End: 85-76-2737Wgtacsxcaz A1c in BloodHEMOGLOBIN A1C Lab Routine Encounter for other preprocedural examination Expected: 01/21/2025, Expires: 04/22/2025 [facility] CenterComment on above:Expected: 01/21/2025, Expires: 04/22/2025Start: 01-21-2025 End: 89-17-5705Isfz and Iron binding capacity panel - Serum or PlasmaIRON AND TIBC Lab Routine Encounter for other preprocedural examination Expected: 01/21/2025, Expires: 04/22/2025[facility] ClinicComment on above:Expected: 01/21/2025, Expires: 04/22/2025Start: 01-21-2025 End: 61-80-6754Aigta 1996 panel - Serum or PlasmaLIPID PANEL, FASTING Lab Routine Encounter for other preprocedural examination Expected: 01/21/2025, Expires: 04/22/2025[facility] ClinicComment on above:Expected: 01/21/2025, Expires: 04/22/2025Start: 01-21-2025 End: 33-59-6812Dbwxxhsiwja peptide.B prohormone N-Terminal [Mass/volume] in Serum or PlasmaNT PRO BNP Lab Routine Encounter for other preprocedural examination Expected: 01/21/2025, Expires:04/22/2025[facility] ClinicComment on above:Expected: 01/21/2025, Expires: 04/22/2025Start: 01-21-2025 End: 87-06-7945Chqzbaoauzm [Units/volume] in Serum or PlasmaTHYROID STIMULATING HORMONE Lab Routine Encounter for other preprocedural examination Expected: 06/2025, Expires: 04/22/2025[facility] ClinicComment on above:Expected: 01/21/2025, Expires: 04/22/2025Start: 01-21-2025 End: 17-74-5740KMAXOWI B1 (THIAMINE), WHOLE BLOODVITAMIN B1 (THIAMINE), WHOLE BLOOD Lab Routine Encounter for other preprocedural examination Expected: 01/21/2025, Expires: 04/22/2025[facility] ClinicComment on above:Expected: 01/21/2025, Expires: 04/22/2025Start: 01-20-2025 End: 80-64-5105Jhdjrjekq to same day surgery wfnjqs3101/20/2025 12:45 PM EDT [facility] Surgery [address] [place] [address] [place] [address] [place] [address] Red/Malcolm/0 Diet/UHCGeneral Surgery Comment on above:Red/Malcolm/0 Diet/UHCStart: 38-60-7655Cpvtz-19 Vaccine ( season)Covid-19 Vaccine ( season)[facility]: 90-91-5160Viqpcispm vaccinationOhioHealth Hardin Memorial Hospitaltart: 53-22-9374Egsdrwmuiw AssessmentDepression AssessmentCleveland ClinicStart: 68-53-8354Qxewolofg for malignant neoplasm of cervixOhioHealth Hardin Memorial Hospitaltart: 89-22-0767Shwpy-19 Vaccine ( season)Covid-19 Vaccine ( season)[facility] Hospitaltart: 93-53-9869Dfxxuwgif vaccinationInfluenza Vaccine (#1)[facility] Hospitaltart: 09-18-0676Yxlcbgvut for malignant neoplasm of cervixHPV TestingKettering Health Behavioral Medical Center Start: 02-80-7869XugolyhcpBlanchard Valley Health System [facility] Work Phone: Start: 87-28-5064EnkrcoyafBlanchard Valley Health System [facility] Work Phone: Start: 76-88-8948Qyqpdkttf for malignant neoplasm of cervixCervical cancer [facility], [place]Start: 12-07-2020 End: 43-54-4020Txosau Visit12/07/2020 Office Visit Endocrinology Armen Pinto MD [address] [place] [address] [phone] [facility]iciansStart: 11-08-2020 End: 04-24-0186Tfgeddw Iqkcmjbx15/25/2021 Routine Obstetrics and Gynecology Gerri Salmeron MD [address] [place] [phone] [facility] OB/GynStart: 10-05-2020 End: 22-95-5564Qlspwac Iwqpxvwd73/22/2020 Routine Obstetrics and Gynecology Gerri Salmeron MD [address] [place] [phone] [facility] OB/GynStart: 07-12-2020 End: 09-64-7496Mofyezi Ihykzxwy81/28/2020 Initial Obstetrics and Gynecology Gerri Salmeron MD [address] [place] [phone] [facility] OB/GynStart: 91-19-7038Fezwvrnsl for malignant neoplasm of cervixPap SmearScotland County Memorial Hospital Start: 07-93-7773Ewijqxsol B Vaccine (1 of 3 - 19+ 3-dose series)Hepatitis B Vaccine (1 of 3 - 19+ 3-dose series)[facility] Hospitaltart: 11-48-6457Eukuhs PCP Team Chronic Disease VisitAnnual PCP Team Chronic Disease VisitKettering Health Behavioral Medical Center Start: 20-88-4151YV Controlled (<130/80)BP Controlled (<130/80)[facility] Start: 41-95-4365Ogdlklmxru ScreeningDepression ScreeningOhioHealth Hardin Memorial Hospitaltart: 25-60-3608Schxjnbvz C screeningHepatitis C ScreeningOhioHealth Hardin Memorial Hospitaltart: 87-60-5055JCQ screeningHIV ScreeningOhioHealth Hardin Memorial Hospitaltart: 59-49-1209XDAIQ-19 Vaccine (1)COVID-19 Vaccine (1)[facility] Work Phone: start: 72-02-7630Tdghajxtp vaccine (1 of 2 - 2-dose childhood series)Varicella vaccine (1 of 2 - 2-dose childhood series)[place], [place]: 55-42-1512Bkxrc-19 Vaccine (#1)Covid-19 Vaccine (#1) [facility] Hospitaltart: 09-41-9575Oqvgfymzv B Vaccine (1 of 3 - 3-dose series) Hepatitis B Vaccine (1 of 3 - 3-dose series)[facility] panel - Blood by Automated countCBC Lab Routine Obesity (BMI 30-39.9) Insulin resistance Low HDL (under 40) ([facility]) Ordered: 12/22/2024[facility] HospitalComment on above: Ordered: 12/22/2024HLAMYDIA TRACHOMATIS (GENITO/STI)CHLAMYDIA TRACHOMATIS (GENITO/STI) Lab Routine Vaginal discharge Ordered: 06/02/2025[facility] Comment on above:Ordered: 06/02/2025omprehensive metabolic 2000 panel - Serum or PlasmaComprehensive metabolic panel Lab Routine Obesity (BMI 30-39.9) Insulin resistance Low HDL (under 40) ([facility]/HCC) Ordered: 12/22/2024[facility] Comment on above:Ordered: 12/22/2024 End: 68-89-0336HZE COMPLETEECG COMPLETE ECG Routine Encounter for other preprocedural examination 1 Occurrences starting 01/21/2025 until 01/21/2026 [facility] CenterComment on above:1 Occurrences starting 01/21/2025 until 01/21/2026 End: 53-09-3324YLU DIAGNOSTICEGD DIAGNOSTIC Endoscopy Routine Obesity, Class II, BMI 35-39.9 1 Occurrences starting 12/21/2023 until 12/19/2024[facility] Work Phone: Comment on above:1 Occurrences starting 12/21/2023 until 12/19/2024Hemoglobin A1c/Hemoglobin.total in BloodHemoglobin A1c Lab Routine Obesity (BMI 30-39.9) Insulin resistance Low HDL (under 40) ([facility]/HCC) Ordered: 12/22/2024[facility] Work Phone: Comment on above:Ordered: 12/22/2024Insulin, fasting Insulin, fasting Lab Routine Obesity (BMI 30-39.9) Insulin resistance Low HDL (under 40) ([facility]/HCC) Ordered: 12/22/2024[facility] HospitalComment on above:Ordered: 12/22/2024Laps gstrc rstrictiv px longitudinal gastrectomyLAPAROSCOPIC LONGITUDINAL GASTRECTOMY, GASTRIC RESTRICTIVE PROCEDURE Morbid obesity due to excess calories (HCC)FV ORLipid 1996 panel - Serum or PlasmaLipid panel Lab Routine Obesity (BMI 30-39.9) Insulin resistance Low HDL (under 40) ([facility]) Ordered: 12/22/2024[facility] HospitalComment on above:Ordered: 12/22/2024Neisseria gonorrhoeae DNA [Presence] in Unspecified specimen by LARISA with probe detection Neisseria gonorrhea DNA probe, direct Lab Routine Vaginal discharge Ordered: 06/02/2025[facility] HospitalComment on above:Ordered: 06/02/2025Patient Education [facility] Work Phone: Patient referralBlanchard Valley Health System [facility] Work Phone: SURESWAB(R) ADVANCED VAGINITIS PLUS, TMASURESWAB(R) ADVANCED VAGINITIS PLUS, TMA Pathology and Cytology Routine Exposure to STD Ordered: 06/02/2025[facility] Work Phone: comment on above:Ordered: 06/02/2025Thyrotropin [Units/volume] in Serum or PlasmaTsh+free t4 Lab Routine Obesity (BMI 30-39.9) Insulin resistance Low HDL (under 40) ([facility]/HCC) Ordered: 12/22/2024[facility] HealthcareComment on above:Ordered: 12/22/2024US Abdomen RUQUS ABD RIGHT UPPER QUADRANT Radiology Routine Class 2 severe obesity with serious comorbidity and body mass index (BMI) of 37.0 to 37.9 in adult, unspecified obesity type ([facility]) 01/21/2024 9:41 AM [facility] Work Phone: End: 69-73-2316PS Abdomen RUQUS ABD RIGHT UPPER QUADRANT Radiology Routine Encounter for other preprocedural examination 1 Occurrences starting 01/21/2025 until 02/20/2026[facility] ClinicComment on above:1 Occurrences starting 01/21/2025 until 02/20/2026 End: 56-95-0189TA Chest PA and LateralXR CHEST 2V FRONTAL/LAT Radiology Routine Encounter for other preprocedural examination 1 Occurrences starting 01/21/2025 until 02/20/2026[facility] ClinicComment on above:1 Occurrences starting 01/21/2025 until 02/20/2026[facility] Immunizations Immunization DateImmunizationNotesCare XxxvivfxJcurystq73-24-3243gpsemgd, mumps and rubella virus vaccineServices [facility] Work Phone: [facility]07-23-2022tetanus toxoid, reduced diphtheria toxoid, and acellular pertussis vaccine, adsorbed Services [facility] Work Phone: [facility]04-01-2021diphtheria, tetanus toxoids and acellular pertussis vaccine, unspecified formulationSumma Health Work Phone: [phone] Papillomavirus 9-valent vaccineNelda Uribe Work Phone: [facility] HospitalJybihgzcpl38-39-5912Uxzvt Papillomavirus 9-valent vaccineLor[address] Ford StreetCpnvqximiw04-13-7629Rhqxj Papillomavirus 9-valent vaccine [place] [address] [place], [place] [address]Kaeakwwusv93-54-1183hcnvnja toxoid, reduced diphtheria toxoid, and acellular pertussis vaccine, adsorbedLorain [address] [place] [address] Payers DatePayer CategoryPayerPolicy [id number] [id number] Health InsuranceUNITED HEALTHCARE MEDICAID Member Subscriber Plan / Payer (Effective 2022- Present) Name: Janay Cruz Relation to Subscriber: Self Name: Elva Cruztim Nelson Payer ID: Not on file Group ID: Not on file Type: Not on file Address: [address] [id number] [id number] 2.1.183866.3.57[id number] 2..1.748977.3.57[id number] .1.078917.3.57[id number] 2..1.822938.3.57[id number] .1.046188.3.57[id number] 2..1.562407.3.57[id number] 2.1.869058.3.57[id number] 2.840.1.700033.3.57[id number] 2.840.1.994150.3.57[id number] 2.840.1.223179.3.57[id number] 2.840.1.420038.3.57[id number] 2.840.1.538255.3.57[id number] 2.840.1.278991.3.57[id number] 2..1.467741.3.57[id number] 2.0.1.134392.3.57[id number] 2..1.845323.3.57[id number] 2.840.1.506969.3.57[id number] 2..1.441819.3.57[id number] 2.840.1.008278.3.57[id number] 2.0.1.338794.3.57[id number] 2.840.1.836821.3.579.2.724100-16-1860[facility] [id number] 44-40-9290Izkd-omno70x2001-c0u1-42dn-934f-[id number] 2.16.840.1.322065.3.579.2.531 Social History DateTypeDetailFacilityTobao smoking status NHISUnknown if ever smokedOhioHealth Hardin Memorial Hospitaltart: 55-57-3986Ogz Assigned At BirthNot on fileOhioHealth Hardin Memorial Hospitaltart: 06-14-2020 End: 12-27-5705Obbcnjy smoking status NHISFormer smokerProMedica Flower Hospitaltart: 03-14-2005 End: 03-15-6918Mufodqg of tobacco useCurrent smokerSpring [place], [place]Start: 06-14-2020 End: 43-26-0068Ibvjvjqxce smoked current (pack per day) - ReportedOhioHealth Hardin Memorial Hospitaltart: 06-14-2020 End: 02-20-1515Ebdlyww use and exposureNever usedNewark Hospitalart: 06-14-2020 End: 60-90-3728Nxspfbx intakeCurrent non-drinker of alcohol (finding)[facility] Hospitalart: 11-62-0056Porgwbi CommentVapingSpring [place], KYExposure to SARS-CoV-2 (event)Not [facility]: 70-26-1727VqdozpbwFcmch Health- [place], [place]Start: 96-05-7621Tnc Assigned At BirthFeSelect Medical Specialty Hospital - Cincinnatitart: 34-18-2530Okkuuss smoking status NHISTobacco smoking consumption unknownYuma Regional Medical Centere AdventHealth Portertart: 11-29-2023 End: 61-06-0807Mgih Deprivation IndexOhioHealth Hardin Memorial Hospitaltart: 05-03-2015 End: 57-42-8784Whmnvghv Score (1-100), lower number is lower tgnn87YrkzgnjgtOhioHealth Hardin Memorial Hospitaltart: 49-72-3419Slnfbk identityIdentifies as female gender (finding) [facility] Hospitaltart: 74-69-6513Tnzodl orientationHeterosexual (finding) [facility] End: 72-23-5769Unlzlzh of tobacco useCigarette SmokerKettering Health Behavioral Medical Center Work Phone: start: 01-11-2024 End: 84-52-6442Klzghaf use and exposureFormer smokeless tobacco userKettering Health Behavioral Medical Center Work Phone: start: 01-11-2024 End: 80-26-3036Kmeecfg intakeEx-drinker (finding)[facility] Hospitaltart: 50-71-2111Qcmqwrv CommentQuit 6 years agoKettering Health Behavioral Medical CenterHow often to you have a drink containing alcohol?NeverCASTLEVIEW HOSPITAL HealthcareStart: 66-46-5314Vdogjdkoa75SWTO HealthcareStart: 99-45-8626Elqkitc CommentCaffeine intake: 1- c green teaCASTLEVIEW HOSPITAL HealthcareStart: 95-52-0866Ufnkuow intakeAlcohol Use [facility] Goals DatePatient GoalDesired Activity/StatePersonal health goal Functional Status WkywNijyyuglrrWyprwbVmdevvnp03-73-5124Mtpjfbxtcz statusPatient at Baseline [facility] Work Phone: Mental Status DvhyBxvzixyzcpCxdyvjBjejvkhf74-39-1224Pvuninlya functionCognitive Status Patient at BaselineUniversity Hospitals Portage Medical Center Work Phone: Clinical Notes 05-05-2022 to 08-05-2025 Note Date & DgxjOalfSaixprbl16-95-4815 NoteHNO ID: [id number] Author: JED MONTIEL, PhD Service: ? Author Type: Physician Type: Progress Notes Filed: 08/05/2025 15:16 Note Text: [facility] Bariatric Behavioral Services Progress Note 08/05/2025 Billing codes: [place] [address] [place] CPT Code: - 0628550 Virtual Group Psychotherapy Time initiated session: 12:00 PM to 1:05 PM I have communicated my name and active licensure. The patient's identity and physical location were verified at the time of this visit. Either the patient or their legal promotions representative has been informed of the risks and benefits of -- and alternatives to -- treatment through a remote evaluation/session and consents to proceed with the session remotely. Platform: Zoom for Healthcare Session #: 1 with undersigned psychologist Index Surgery Date of Surgery: 06/29/2025 Surgeon: Janet Malcolm MD Surgical Procedure: LAPAROSCOPIC LONGITUDINAL GASTRECTOMY, GASTRIC RESTRICTIVE PROCEDURE Pre-surgical weight: 98 kg (216 lb 0.8 oz) Psychologist: Ivon Ventura, PhD Subjective: Ms. Cruz returns for a 1 month follow-up. Patients were reminded of the limits of confidentiality in the group setting and agreed to hold in confidence all matters discussed in the group. The patient's hospital experience and adjustment postsurgery were discussed. Patient discussed benefits they were experiencing after surgery and processed complications. Tools to enhance postsurgical outcomes, including coping skills for social situations and resources such as bariatric support groups, were offered. Patient set goals for lifestyle changes to enhance surgical outcomes. Patient identified challenges to accomplishing goals and lifestyle changes. Discussed normalization of adjustment issues. She describes a post-surgery recovery as uncomplicated. Post-surgically, the patient reports initial incisional pain. The following post-surgical psychological complications were reported: initial regret and initial grieving the loss of food. Ms. Cruz describes working on behavior modification to get adequate protein, fluids, vitamins, and exercise. She denied binge eating, graze eating, tobacco use, and alcohol use. Future goals include: continue behavior modification and advance diet as tolerated per BMI Nutrition recommendations Pt describes recovery thus far as really good . The first week was hard d/t incisional pain but many improvements since that time The patient reports weighing 1-2x/week. She identified the following non-scale victories: increased energy, clothes fit better Patient mood described as really good. Affect is Appropriate and Mood congruent. Patient denies any suicidal or homicidal ideation, plan or intent at this time. Objective: pt arrived on time and paid excellent attention Patient Data Alcohol Use Disorders Identification Test - Short Version (AUDIT-C) 08/05/2025 AUDIT-C TOTAL SCORE 0 How often do you have a drink containing alcohol? Never How many drinks containing alcohol do you have on a typical day when you are drinking? 0 - 2 How often do you have four or more drinks on one occasion? Never In men, a score of 4 or more is considered positive; in women, a score of 3 or more is considered positive. Generally, the higher the AUDIT-C score, the more likely it is that the patient's drinking is affecting his/her health and safety Generalized Anxiety Disorder Scale (PENELOPE-7) 01/07/2024 01/26/2025 08/05/2025 PENELOPE - 7 SCORES Score 4 0 0 (0-4) minimal anxiety, (5-9) mild anxiety, (10-14) moderate anxiety, (15-21) severe anxiety Patient Health Questionnaire (PHQ-9) 01/07/2024 01/26/2025 08/05/2025 PHQ-9 Score 0 0 0 Data saved with a previous flowsheet row definition (0-4) minimal depression, (5-9) mild depression, (10-14) moderate depression, (15-19) moderately severe depression, (20-27) severe depression Assessment: (F54) Psychological factors affecting medical condition (primary encounter diagnosis) (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 ondansetron orally disintegrating (ZOFRAN ODT) 4 mg disintegrating tablet Take 1 tablet by mouth every 8 hours as needed for nausea/vomiting for up to 60 doses. (Patient not taking: Reported on 07/06/2025) omeprazole (PRILOSEC) 40 mg capsule Take 1 capsule by mouth once daily. No current facility-administered medications for this visit. Medication Changes: Patient not currently taking psychotropic medications. Plan/Recommendations: 1) The patient may benefit from the following: *Follow up with psychology at 3, 6, 12, 18 months and yearly, or as needed *Attend bariatric surgery support groups *On-going follow-up with BMI team *Avoid nicotine/tobacco products, alcohol, and recreationa (more content not included)...[facility]10-[facility]-20[facility] NoteHNO ID: [id number] Author: RAMYA KEARNEY RD Service: ? Author [...] per day OR 1 Multivitamin capsule and 1052-8901 mg calcium citrate per day OR 2 Multivitamin soft chews per day + 3 calcium citrate soft chews + 1 iron soft chew per day www.bariatricfusion.[employer] - [employer]: 1 Bariatric Multivitamin w/ iron (capsule or chewable) and 9084-6407 mg calcium citrate per day www.Celulares.com.[employer] - Bariatric Choice: 1 Once Daily Bariatric Multivitamin capsule and 4529-9098 mg calcium citrate per day OR 4 All-in-One Bariatric Multivitamin chewables per day www.bariatricchoice.[employer] - Bariatric Advantage: 1 Ultra Solo multivitamin w/ iron (chewable or capsule) OR 2 chewable Advanced Multi EA w/ iron and 4851-2425 mg calcium citrate per day OR 2 Multi Chewy Bites and 5270-8868 mg calcium citrate and 45-60 mg iron per day www.bariatricadTravelerCarage.[employer] - Bariatric Pal: 1 Multivitamin One (chewable or capsule) and 9818-6763 mg calcium citrate per day OR 4 All-in-One Multivitamin chewables per day www.store.bariatricpal.com/collections/bariatric-vitamins - Barilife: 1 Just One Bariatric Multivitamin w/ iron (chewable or capsule) and 7351-5236 mg calcium citrate per day www.bariNextPrinciples.com - Barimelts: 2 Multivitamin w/ iron tablets and 8682-4015 mg calcium citrate per day www.bariAllmoxyts.com - Continue daily Super B-Complex/B100 until you [...] at 1 month) The Bariatric AND Metabolic [place] at [facility] has 2 virtual support group meetings: This is the [employer] link with meeting number that will be used for all of the SUNDAY virtual support groups this year, on the Sunday of each month 5:30-6:30PM Join from the meeting link [email or web address] Join by meeting number Meeting number (access code): [phone] Meeting password: [email or web address] The schedule with dates, times, topics, and facilitators can be found here: [email or web address] This is the [employer] link with meeting number that will be used for the Open Discussion ( Food for Thought ) support group on the Sunday of each month 5:30-6:30PM Join from the meeting link [email or web address] Join by meeting number Meeting number (access code): [phone] Meeting password: [email or web address] Geetha t (more content not included)...[facility]10-01-2025 Note Education (BMINO) JANAY CRUZ ([id number]) 1995 F Date Time Provider Department 07/15/25 11:00 AM RAMYA KEARNEY Reason for Visit: Reassessment [674] Patient Education [...] daily. Encounter Status:Closed by RAMYA KEARNEY on 07/15/25[facility] 07-08-2025 History of Present illness Narrative* Carrie Robles - 07/08/2025 1:20 PM EDT Reason for Appointment: Patient ID: Janay Cruz is a 30 y.o. female who presents for Pre-op Visit Patient presents today for Pre Op appointment. 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 Shafer at [facility]. MEDICATIONS Current Outpatient Medications Medication Instructions omeprazole (PRILOSEC) 40 mg, Daily RT ondansetron ODT (ZOFRAN-ODT) 4 mg, Every 8 hours PRN senna-docusate (Mariya-Colace) 8.6-50 MG tablet 1 tablet, Daily RT ALLERGIES No Known Allergies PROBLEMS Active Ambulatory Problems Diagnosis Date Noted Carpal tunnel syndrome 03/01/2023 Gestational diabetes mellitus (GDM) in third trimester ([facility]) 03/01/2023 Insulin resistance 08/02/2018 Obesity (BMI 30-39.9) [...] nursing note reviewed. Exam conducted with a microsoft dynamics ax developer present. Vitals: Estimated body mass index is [...] reviewed, and patient is to proceed to [facility] OR. Follow Up: Patient is to follow up between 1-2 weeks post operative to assess proper healing and recovery fromprocedure. Documented by Lauren Kasper LPN on behalf of: Yadiel Shafer DO documented in this encounterScotland County Memorial HospitalBdjvhqnmhx57-77-6683 NoteHNO ID: [id number] Author: RANDA BOUDREAUX APRN.SIGNS CLEANER Service: ? Author Type: Nurse Practitioner Type: Progress Notes Filed: 07/06/2025 13:38 Note Text: Assessment BMI Surgical PostOp Clinic Note July 06, 2025 INTERVAL HISTORY: Janay Cruz is here for 7-10 day post op visit. Post-Op Sleeve Gastrectomy: - Janay Cruz is one week post-op from sleeve gastrectomy. - Concerns about suture discomfort. - Using Toughkenamon Breakfast Essentials shakes; until she noticed high [...] loss: 4.4 kg (9 lb 11.2 oz) Henderson weight: 66.1 kg (145 lb 10.6 oz) [...] 1 month post op visit. Randa Boudreaux APRN.SIGNS CLEANER Recording using [employer] software for draft documentation of the visit was discussed with the patient/authorized promotions representative; all q (more content not included)...[facility]09-16-2025 NoteHNO ID: [id number] Author: JANET MALCOLM MD Service: General Surgery Author Type: Physician Type: Progress Notes Filed: 06/30/2025 17:04 Note Text: Documentation Query Please specify a diagnosis associated with the Clinical Indicators for this patient Obesity class 2 This document will become part of the patient's medical record.[facility] 06-29-2025 NoteHNO ID: [id number] Author: JACQUELYN ANDERSON AA Service: Anesthesiology Author Type: Soda Dispenser Type: Anesthesia Procedure Notes Filed: 06/29/2025 08:24 Note Text: ANESTHESIOLOGY PROCEDURE NOTE PIV General Information Procedure Start Time/Medication Administration: 06/29/2025 7:55 AM Procedure End Time: 06/29/2025 7:56 AM Patient Location: OR Staffing CAA: Jacquelyn Anderson AA Performed by: CAA Preparation Sterility Preparation: hand hygiene performed prior to procedure, surgical cap used, mask used, skin prep agent completely dried prior to procedure Site Prep: Chloraprep Procedure Details Indication: need for IV access Needle Size/Type: 18 gauge angiocath Orientation: Left Location: Hand Imaging Guidance Used: No SIGNATURE: TANIA Angeles PATIENT NAME: Janay Cruz DATE: June 29, 2025 TIME: 8:24 AM CSN: [id number] NoteHNO ID: [id number] Author: JACQUELYN ANDERSON AA Service: Anesthesiology Author Type: Soda Dispenser Type: Anesthesia Procedure Notes Filed: 06/29/2025 08:16 [...] Successful intubation technique: video laryngoscopy Devices used: Gayle Endotracheal tube insertion site: oral Blade: Alon Blade size: #3 ETT size (mm): 7.0 Measured from: lips Measurement (cm): 21 Placement verified by: chest auscultation and capnometry Cormack-Lehane Classification: grade I - full view of glottis Number of attempts at approach: 1 Airway not difficult SIGNATURE: TANIA Angeles PATIENT NAME: Janay Cruz DATE: June 29, 2025 TIME: 8:14 AM CSN: [id number] NoteHNO ID: [id number] Author: NITZA SINGH RN Service: Nursing Author Type: Registered Nurse Type: Nursing Progress Note Filed: 06/29/2025 07:29 Note Text: Patient has small bug bite right distal tib fib. No surrounding erythema or discharge noted.[facility] HospitalKbcxgvnk07-36-1380 Instructions* Patient Instructions* Lotus Calles APRN.SIGNS CLEANER - 06/26/2025 1:54 PM EDT PATIENT PREOPERATIVE INSTRUCTIONS Janet Malcolm has scheduled you for your procedure at this surgery center: [facility]: [phone] --[phone] [address]. Please check in on thet floor at registration desk 6. Please read [...] Procedures: - YOU MUST HAVE A RESPONSIBLE REAL ESTATE DEVELOPMENT MANAGER TAKE YOU HOME. A OUTSIDE CUTTER HAND OR CERTIFIED PROCEDURAL CODER CANNOT BE MADE A RESPONSIBLE REAL ESTATE DEVELOPMENT MANAGER. - We recommend that a responsible person stays with you overnight to take care of you. - You cannot stay in a hotel alone after outpatient surgery. You will not be permitted to have yoursurgery, if you do not have someone to [...] Advance Directive, please fax a copy to [phone] or email to for it to be added to your chart. If you do not have an Advance Directive, you can find the appropriate form and more information at [email or web address]. We recommend that youcomplete the Advance Directive form found on the website and bring it with you the day of your surgery. It can be witnessed and scanned into your chart that day. documented in this encounterKettering Health Behavioral Medical Center09-12-2025 History and physical note * Lotus Calles APRN.CNP - 06/26/2025 1:40 PM EDT HISTORY AND PHYSICAL EXAMINATION SERVICE DATE: 06/26/2025 [...] large neck Non-male patient STOP-Bang Score: 1 [id number] Score: Age: <65 Sex: female CHF history: No Hypertension history: Yes Stroke/TIA/thromboembolism history: No Vascular disease history: No Diabetes history: No [id number] Score: 2 ARISCAT Score: Age: <=50 Preoperative [...] Hutchinson present: no Lip Bite Test: II Microretrognathia/Micronagthia/Recessed Chin: No DENTAL Dental findings: teeth intact. [...] fevers. Neuro: No history of TIA's, stroke, MEDIA TECHNICIAN tumor, impaired sensorium, hemiplegia, paraplegia or quadraplegia. [...] or incontinence,, stones or chronic kidney disease RECORD CENTER COORDINATOR: Negative for abnormal vaginal bleeding, abnormal vaginal discharge. : Denies, Patient's last menstrual period was 01/16/2025. Endocrine: PCOS Hematology: No history of bleeding or clotting disorder. Pt is not taking anti- coagulation or platelet medications. No history of hematological [...] 442 QTC Calculation (Bazett) 411 Calculated P [place] 44 Calculated R [place] 72 Calculated T [place] -3 Impression SINUS BRADYCARDIA ABNORMAL QRS-T ANGLE, CONSIDER PRIMARY T WAVE ABNORMALITY ABNORMAL ECG Confirmed by CAROLYNE ZAMBRANO, [facility] ([id number]) on 01/28/2025 1:37:02 PM Instructions Given [...] Alcohol use: Not Currently Drug use: Never [facility]09-12-[facility] History and physical note* Lotus Calles APRN.CNP - 06/26/2025 1:40 PM EDT HISTORY AND PHYSICAL EXAMINATION SERVICE DATE: 06/26/2025 [...] large neck Non-male patient STOP-Bang Score: 1 [id number] Score: Age: <65 Sex: female CHF history: No Hypertension history: Yes Stroke/TIA/thromboembolism history: No Vascular disease history: No Diabetes history: No [id number] Score: 2 ARISCAT Score: Age: <=50 Preoperative [...] Hutchinson present: no Lip Bite Test: II Microretrognathia/Micronagthia/Recessed Chin: No DENTAL Dental findings: teeth intact. [...] fevers. Neuro: No history of TIA's, stroke, MEDIA TECHNICIAN tumor, impaired sensorium, hemiplegia, paraplegia or quadraplegia. [...] or incontinence,, stones or chronic kidney disease RECORD CENTER COORDINATOR: Negative for abnormal vaginal bleeding, abnormal vaginal discharge. : Denies, Patient's last menstrual period was 01/16/2025. Endocrine: PCOS Hematology: No history of bleeding or clotting disorder. Pt is not taking anti- coagulation or platelet medications. No history of hematological [...] 442 QTC Calculation (Bazett) 411 Calculated P [place] 44 Calculated R [place] 72 Calculated T [place] -3 Impression SINUS BRADYCARDIA ABNORMAL QRS-T ANGLE, CONSIDER PRIMARY T WAVE ABNORMALITY ABNORMAL ECG Confirmed by CAROLYNE ZAMBRANO [facility] ([id number]) on 01/28/2025 1:37:02 PM Instructions Given [...] Currently Drug use: Never documented in this encounterKettering Health Behavioral Medical Center09-10-2025 Instructions* Patient Instructions* Ramya Kearney, RD - 06/24/2025 9:36 AM EDT Instructions for Liquid Diet before surgery 1. Start the full liquid diet 2 weeks before surgery - Use only the approved protein shakes: 4.5 bottles/day Slim Fast Advanced Nutrition OR 5.5 packets/day Light Start Toughkenamon Breakfast Essentials mixed with 1% or skim [...] of protein 3 times per day from poultry,beef, fish, seafood, eggs, cheese, Gibraltarian yogurt, cottage cheese, beans, lentils, tofu. Choose meat products that are tender, shredded and/or ground to increase tolerance. Remember to chew food well, eat slow, take small bites Nutrition Monitoring & Evaluation: Follow pre op diet and fluid guidelines Criteria: weight check Need for Follow up: 2 weeks post op documented in this encounterKettering Health Behavioral Medical Center09-10-2025 History of Present illness Narrative* Ramya Kearney RD - 06/24/2025 9:00 AM EDT TOPIC: LIFE STYLE CHANGES: Pre-op weight loss [...] Control shakes per day 5 packets of Toughkenamon Breakfast Essentials Light Start mixed with fat [...] per day OR 1 Multivitamin capsule and 2416-8774 mg calcium citrate per day OR 2 Multivitamin soft chews per day + 3 calcium citrate soft chews + 1 iron soft chew per day www.bariatricfusion.com - Bariatric Choice: 4 All-in-One Bariatric Multivitamin chewables per day OR 1 Once Daily BariatricMultivitamin capsule and 2628-5175 mg calcium citrate per day www.bariatricchoice.com - Bariatric Pal: 4 All-in-One Multivitamin chewables per day OR 1 Multivitamin One (chewable or capsule) and 2688-9776 mg calcium citrate per day www.Twist and Shout.bariatricpal.[employer]/collections/bariatric-vitamins - Bariatric Advantage: 1 Ultra Solo multivitamin w/ iron (chewable or capsule) OR 2 chewable Advanced Multi EA w/ iron and 4065-4258 mg calcium citrate per day OR 2 Multi Chewy Bites and 3091-8178 mgcalcium citrate and 45-60 mg iron per day www.bariatricadFlashpoint.Innovative Mobile Technologies - Procare Health: 1 Bariatric Multivitamin w/ iron (capsule or chewable) and 5517-3096 mg calcium citrate per day www.Schooner Information Technologyarereeplay.it - Celebrate: 2 Multi-Complete (chewable or capsule) OR 1 CelebrateOne Multivitamin capsule and 8010-4891 mg calcium citrate per day OR 2 Multivitamin soft chews + 3 calcium citrate soft chews + 1 iron soft chew per day https://celebratevitamins.Innovative Mobile Technologies - Barilife: 1 Just One Bariatric Multivitamin w/ iron (chewable or capsule) and 5902-7825 mg calcium citrate per day www.barilife.In[employer] Mobile Technologies - Barimelts: 2 Multivitamin w/ iron tablets and 7925-9797 mg calcium citrate per day www.barimelts.In[employer]ative Mobile Technologies CHANGES IN TREATMENT: Patient met goal(s): Partially [...] is using appropriate protein shakes. Patient has allappropriate beverages and Super B complex supplement. Nutrition Diagnosis: Overweight/obesity, related to, decreased energy needs, as evidenced by BMI above normative standard for age and gender. Nutrition Intervention 06/24/2025: Instructions for Liquid Diet before surgery 1. Start the full liquid diet 2 weeks before surgery - Use only the approved protein shakes: 4.5 bottles/day Slim Fast Advanced Nutrition OR 5.5 packets/day Light Start Toughkenamon Breakfast Essentials mixed with 1% or skim [...] of protein 3 times per day from poultry,beef, fish, seafood, eggs, cheese, Gibraltarian yogurt, cottage cheese, beans, lentils, tofu. Choose [...] 8:32 AM PAGER: N/A documented in this encounterKettering Health Behavioral Medical Center09-10-2025 NoteEducation (BMINO) ANTHONYJANAY ([id number]) 1995 F Date Time Provider Department 06/24/25 9:00 AM RAMYA KEARNEY BMINO Reason for Visit: [...] morning. Encounter Status:Closed by RAMYA KEARNEY on 06/24/25[facility] 06-24-2025 NoteHNO ID: [id number] Author: RAMYA KEARNEY RD Service: ? Author [...] shakes per day 5 ? packets of Toughkenamon Breakfast Essentials Light Start mixed with fat [...] per day OR 1 Multivitamin capsule and 2549-8556 mg calcium citrate per day OR 2 Multivitamin soft chews per day + 3 calcium citrate soft chews + 1 iron soft chew per day www.bariatricfusion.com - Bariatric Choice: 4 All-in-One Bariatric Multivitamin chewables per day OR 1 Once Daily Bariatric Multivitamin capsule and 2749-7425 mg calcium citrate per day www.bariatricchoice.com - Bariatric Pal: 4 All-in-One Multivitamin chewables per day OR 1 Multivitamin One (chewable or capsule) and 1471-0646 mg calcium citrate per day www.Twist and Shout.bariatricpal.[employer]/collections/bariatric-vitamins - Bariatric Advantage: 1 Ultra Solo multivitamin w/ iron (chewable or capsule) OR 2 chewable Advanced Multi EA w/ iron and 3698-4048 mg calcium citrate per day OR 2 Multi Chewy Bites and 1880-1862 mg calcium citrate and 45-60 mg iron per day www.bariatricadvantage.[employer] Mobile Technologies - Procare Health: 1 Bariatric Multivitamin w/ iron (capsule or chewable) and 7098-3556 mg calcium citrate per day www.Schooner Information TechnologyareRANK PRODUCTIONS.Innovative Mobile Technologies - Celebrate: 2 Multi-Complete (chewable or capsule) OR 1 CelebrateOne Multivitamin capsule and 9508-9628 mg calcium citrate per day OR 2 Multivitamin soft chews + 3 calcium citrate soft chews + 1 iron soft chew per day https://celebratevitamins.[employer] - Barilife: 1 Just One Bariatric Multivitamin w/ iron (chewable or capsule) and 6100-5595 mg calcium citrate per day www.bariNextPrinciples.In[employer]ative Mobile Technologies - Barimelts: 2 Multivitamin w/ iron tablets and 9390-8764 mg calcium citrate per day www.MediaCore.In[employer]ative Mobile Technologies CHANGES IN TREATMENT: Patient met goal(s): Partially [...] Overweight/obesity, related to, decreased (more content not included)...[facility]09-09-2025 NoteHNO ID: [id number] Author: GALILEO HARTLEY MA Service: ? Author Type: Veneer Taping Machine Operator Type: Progress Notes Filed: 06/23/2025 15:47 Note Text: What is the reason for your visit today? Pre-Op LRYGB, DOS 07/06/25 Who is your referring physician? Program Are you having poor oral intake? NO Have you had unintentional weight loss of 15 lbs/7 Kg in the last 3-6 months? NO Bowels: regular Wound: Temperature: No Drains: [facility]09-09-2025 History of Present illness Narrative* Galileo Hartley MA - 06/23/2025 2:28 PM EDT What is the reason for your visit today? Pre-Op LRYGB, DOS 07/06/25 Who is your referring physician? Program Are you having poor oral intake? NO Have you had unintentional weight loss of 15 lbs/7 Kg in the last 3-6 months? NO Bowels: regular Wound: Temperature: No Drains: No * Janet Malcolm MD - 06/23/2025 2:00 PM EDT SURGERY PREOPERATIVE VISIT NOTE Name: Janay Cruz Medical Record: [id number] Encounter No.: [id number] Janay Cruz is a 30 year old [...] postoperative relevant prescriptions were provided and explained duringthis clinic visit. Based on co morbidities, age and gender, DVT risk is 0.2%. ERAS protocol discussed . Narcotics sparing postop recovery discussed . The consent discussion included the risks, benefits and anticipated outcomes of the procedure, the risks and benefits of the alternatives to the procedure, and the roles and tasks of the personnel berkley involved. Patient is scheduled for laparoscopic possible [...] case scenario requiring surgery for reflux. I havealso discussed regarding unsatisfactory weight loss as well as assisted weight regain. I have alsodiscussed medical complications including urinary tract infections, myocardial infarction, DVT, PE,prolonged ICU stay, and possible postoperative mechanical ventilation [...] Currently Drug use: Never documented in this encounterKettering [facility] Center09-09-2025 NoteHNO ID: [id number] Author: JANET MALCOLM MD Service: ? Author Type: Physician Type: Progress Notes Filed: 06/23/2025 15:47 Note Text: SURGERY PREOPERATIVE VISIT NOTE Name: Janay Cruz Medical Record: [id number] Encounter No.: [id number] Janay Cruz is a 30 year old [...] regarding unsatisfactory weight loss as well as assisted weight regain. I have also discussed medical [...] Topics Alcohol use: Not Currently Drug use: Never[facility]08-[facility] Telephone encounter Note* Telephone Encounter - Christina Gardner RN - 06/11/2025 4:04 PM EDT Returned call and informed patient that I would send her navigator an email to check on the status of the insurance approval. Patient understanding and thankful for call. [facility]08-28-2025 Miscellaneous Notes* Telephone Encounter - Christina Gardner RN - 06/11/2025 4:04 PM EDT Returned call and informed patient that I would send her navigator an email to check on the status of the insurance approval. Patient understanding and thankful for call. * Telephone Encounter - Eve Duval - 06/11/2025 2:44 PM EDT Patient contacted the office of Dr Malcolm to express that she has not received a surgical date for her bariatric surgery and had received insurance approval letter a few weeks ago and advised my navigator . Patient would appreciate assistance from the office and or update if further steps are required as soon as possible. CB # [phone]. Thank you. Eve Duval documented in this encounterKettering Health Behavioral Medical Center08-28-2025 Telephone encounter Note * Telephone Encounter - Eve Duval - 06/11/2025 2:44 PM EDT Patient contacted the office of Dr Malcolm to express that she has not received a surgical date for her bariatric surgery and had received insurance approval letter a few weeks ago and advised my navigator . Patient would appreciate assistance from the office and or update if further steps are required as soon as possible. CB # [phone]. Thank you. Eve Duval [facility]08-19-2025 History of Present illness Narrative* Lauren Kasper LPN - 06/02/2025 11:30 AM EDT Reason for Appointment: Patient ID: Janay Cruz [...] Gestational diabetes mellitus (GDM) in third trimester ([facility]) 03/01/2023 Insulin resistance 08/02/2018 Obesity [...] nursing note reviewed. Exam conducted with a microsoft dynamics ax developer present. Vitals: Estimated body mass index is [...] of: Yadiel Shafer DO documented in this encounterScotland County Memorial HospitalPirogzfjaw93-37-0864 History of Present illness Narrative* Encounter Date Complaint History Of Prese nt Illness ext ext [facility] Work Phone: [phone] NoteHNO ID: [id number] Author: ?, ?, ? Service: ? Author Type: ? Type: Progress Notes Filed: 04/23/2025 11:56 Note Text: 05/24/2025 is a pseudo date for insurance approval purposes only. This is not an actual procedure date. Kenneth Clay [address] [place] [address]-10-2025 History of Present illness Narrative* Kenneth Hernandez - 04/23/2025 11:54 AM EDT 05/24/2025 is a pseudo date for insurance approval purposes only. This is not an actual procedure date. Kenneth Hernandez documented in this encounterKettering Health Behavioral Medical Center05-27-2025 Telephone encounter Note * Telephone Encounter - Jenelle Malhotra MA - 03/10/2025 9:03 AM EDT March 10, 2025 9:03 AM Last encounter Visit on 11/29/2023 (with Nataliia Ramos) Janay Cruz called regarding surgical clearance. Patient states is having bariatric surgery but has not got the clearance from Dr. Jose. Patient confused what is holding the approval up. She can be reached at [phone]. Jenelle Malhotra Restoration Officer II Endocrinology & Metabolism [facility] F20 & X20 [facility]05-27-2025 Miscellaneous Notes* Telephone Encounter - Jenelle Malhotra MA - 03/10/2025 9:03 AM EDT March 10, 2025 9:03 AM Last encounter Visit on 11/29/2023 (with Nataliia Ramos) Janay Cruz called regarding surgical clearance. Patient states is having bariatric surgery but has not got the clearance from Dr. Jose. Patient confused what is holding the approval up. She can be reached at [phone]. Jenelle Malhotra Restoration Officer II Endocrinology & Metabolism [facility] F20 & X20 documented in this encounterKettering Health Behavioral Medical Center05-13-2025 Telephone encounter Note * Telephone Encounter - Belinda Astudillo - 02/24/2025 3:14 PM EDT Sent patient email regarding clearance patient has been cleared by nutrition and psych, I reach outto Dr. Jose on February 19, for clearance and again today February 24, 2025. [facility]05-13-2025 Miscellaneous Notes* Telephone Encounter - Belinda Astudillo - 02/24/2025 3:14 PM EDT Sent patient email regarding clearance patient has been cleared by nutrition and psych, I reach outto Dr. Jose on February 19, for clearance and again today February 24, 2025. documented in this encounterKettering Health Behavioral Medical Center05-01-2025 Instructions* Patient Instructions* Laure Dhillon RD - 02/12/2025 10:25 AM EDT Nutrition Intervention: Modify type and amount of foods consumed for meals and snacks Please call [phone], option 5. Leave a message for the [...] Control shakes per day 5 packets of Toughkenamon Breakfast Essentials Light Start mixed with fat [...] per day OR 1 Multivitamin capsule and 2810-1732 mg calcium citrate per day OR 2 Multivitamin soft chews per day + 3 calcium citrate soft chews + 1 iron soft chew per day www.bariatricfusion.[employer] Technologies - Bariatric Choice: 4 All-in-One Bariatric Multivitamin chewables per day OR 1 Once Daily BariatricMultivitamin capsule and 3762-5028 mg calcium citrate per day www.bariatricchoice.[employer] - Bariatric Pal: 4 All-in-One Multivitamin chewables per day OR 1 Multivitamin One (chewable or capsule) and 0184-9641 mg calcium citrate per day www.Twist and Shout.bariatricpal.[employer]/collections/bariatric-vitamins - Bariatric Advantage: 1 Ultra Solo multivitamin w/ iron (chewable or capsule) OR 2 chewable Advanced Multi EA w/ iron and 9001-0485 mg calcium citrate per day OR 2 Multi Chewy Bites and 1019-9120 mgcalcium citrate and 45-60 mg iron per day www.bariatricadvantage.[employer] - Procare Health: 1 Bariatric Multivitamin w/ iron (capsule or chewable) and 1403-1740 mg calcium citrate per day www.Celulares.com.In[employer]ative Mobile Technologies - Celebrate: 2 Multi-Complete (chewable or capsule) OR 1 CelebrateOne Multivitamin capsule and 9646-5318 mg calcium citrate per day OR 2 Multivitamin soft chews + 3 calcium citrate soft chews + 1 iron soft chew per day https://celebrateRevolution Moneys.Innovative Mobile Technologies - Barilife: 1 Just One Bariatric Multivitamin w/ iron (chewable or capsule) and 5846-1789 mg calcium citrate per day www.barilife.[employer] - Barimelts: 2 Multivitamin w/ iron tablets and 4739-1787 mg calcium citrate per day [email or web address] Pre-op weight goal: 212 lbs Nutrition Monitoring & Evaluation: 1-2 lb weight loss per week prior to surgery Criteria: weight check and patient update Need for Follow up: 2 weeks pre op documented [facility] encounter[facility] History of Present illness Narrative* Laure Dhillon RD - 02/12/2025 9:45 AM EDT AMBULATORY PATIENT EDUCATION NOTE- Shared Virtual Nutrition Group I have communicated my name and active licensure. The patient's identity and physical location wereverified at the time of this visit. Either the patient or their legal promotions representative has been informed of the risks and benefits of -- and alternatives to -- treatment through a remote evaluation andconsents to proceed with the evaluation remotely. Patient reports weight (as measured by home scale) of 216 pounds ([facility]- [facility]. Malcolm) PROGRESS: Nutrition Intervention (date of last encounter 01/23/25): Modify type and amount of foods consumed for meals and snacks 1. Read Nutritional Guidelines Section of Your Guide to Surgery by next session https://my.[email or web address]/-/scassets/files/org/[email or web address]/[email or web address]/[email or web address]?la=e n 2. Do not skip meals. [...] (16 g protein), Owyn (20 g protein), Toughkenamon Breakfast Essentials Light Start mixed with fat [...] 45-60 mg, calcium citrate w/ Vit D 0027-5325 mg, Vit B12 500 mcg sublingual pill or liquid, Vit D3 3000 international unit(s), B complex with 75-100 mg thiamin It is ok to take a combination bariatric vitamin to limit pill volume. Here are a few options to consider: - Bariatric Fusion: 4 Complete Multivitamin chewables per day OR 1 Multivitamin capsule and 3904-3808 mg calcium citrate per day OR 2 Multivitamin soft chews per day + 3 calcium citrate soft chews + 1 iron soft chew per day www.bariatricfusion.com - Bariatric Choice: 4 All-in-One Bariatric Multivitamin chewables per day OR 1 Once Daily BariatricMultivitamin capsule and 6937-7590 mg calcium citrate per day www.bariatricchoice.com - Bariatric Pal: 4 All-in-One Multivitamin chewables per day OR 1 Multivitamin One (chewable or capsule) and 4009-7285 mg calcium citrate per day www.store.bariatricpal.com/collections/bariatric-vitamins - Bariatric Advantage: 1 Ultra Solo multivitamin w/ iron (chewable or capsule) OR 2 chewable Advanced Multi EA w/ iron and 9647-9936 mg calcium citrate per day OR 2 Multi Chewy Bites and 8502-1233 mgcalcium citrate and 45-60 mg iron per day www.bariatricadvantage.[employer] Mobile [employer] - Procare Health: 1 Bariatric Multivitamin w/ iron (capsule or chewable) and 8423-2979 mg calcium citrate per day www.Zinwave - Celebrate: 2 Multi-Complete (chewable or capsule) OR 1 CelebrateOne Multivitamin capsule and 0822-4869 mg calcium citrate per day OR 2 Multivitamin soft chews + 3 calcium citrate soft chews + 1 iron soft chew per day https://[email or web address] - Barilife: 1 Just One Bariatric Multivitamin w/ iron (chewable or capsule) and 3615-3895 mg calcium citrate per day www.Intelligent Beauty.In[employer] - Barimelts: 2 Multivitamin w/ iron tablets and 1732-3239 mg calcium citrate per day www.MediaCore.[employer] Pre-op goal weight: 212 pounds Protein needs: [...] guidelines for weight loss surgery and has [facility] Medicaid Insurance therefore is required to complete [...] consumed for meals and snacks Please call [phone], option 5. Leave a message for the [...] Control shakes per day 5 packets of Tough[place] Breakfast Essentials Light Start mixed with fat [...] per day OR 1 Multivitamin capsule and 8584-2243 mg calcium citrate per day OR 2 Multivitamin soft chews per day + 3 calcium citrate soft chews + 1 iron soft chew per day www.bariatricfusion.[employer] - Bariatric Choice: 4 All-in-One Bariatric Multivitamin chewables per day OR 1 Once Daily BariatricMultivitamin capsule and 0644-3580 mg calcium citrate per day www.bariatricchoice.[employer] - Bariatric Pal: 4 All-in-One Multivitamin chewables per day OR 1 Multivitamin One (chewable or capsule) and 1526-3032 mg calcium citrate per day www.Perdoobariatricpal.[employer] Mobile [employer]/collections/bariatric-vitamins - Bariatric Advantage: 1 Ultra Solo multivitamin w/ iron (chewable or capsule) OR 2 chewable Advanced Multi EA w/ iron and 0917-6809 mg calcium citrate per day OR 2 Multi Chewy Bites and 7001-1903 mgcalcium citrate and 45-60 mg iron per day www.bariatricadvantage.[employer] Mobile [employer] - [employer] Health: 1 Bariatric Multivitamin w/ iron (capsule or chewable) and 5625-3961 mg calcium citrate per day www.Zinwave - Celebrate: 2 Multi-Complete (chewable or capsule) OR 1 CelebrateOne Multivitamin capsule and 5006-5420 mg calcium citrate per day OR 2 Multivitamin soft chews + 3 calcium citrate soft chews + 1 iron soft chew per day https://Chirp Interactive.In[employer]ative Mobile Technologies - Barilife: 1 Just One Bariatric Multivitamin w/ iron (chewable or capsule) and 1600-4432 mg calcium citrate per day www.Intelligent Beauty.[employer] - Barimelts: 2 Multivitamin w/ iron tablets and 6706-1625 mg calcium citrate per day www.[email or web address] Pre-op weight goal: 212 lbs Nutrition Monitoring & Evaluation: 1-2 lb weight loss per week prior to surgery Criteria: weight check and patient update Need for Follow up: 2 weeks pre op Appointment Start Time: 9:45am Appointment End Time: 10:13am Time Spent on Consult: 28 minutes MNT Billing Type: Ambulatory Group 1 unit Total Time (mins): 28 Signed by: Laure Dhillon RD, KERVIN documented in this encounterK[facility] NoteHNO ID: [id number] Author: LAURE DHILLON RD Service: ? Author Type: Registered Dietitian Type: Progress Notes Filed: 02/12/2025 10:25 Note Text: AMBULATORY PATIENT EDUCATION NOTE- Shared Virtual Nutrition Group I have communicated my name and active licensure. The patient's identity and physical location were verified at the time of this visit. Either the patient or their legal promotions representative has been informed of the risks and benefits of -- and alternatives to -- treatment through a remote evaluation and consents to proceed with the evaluation remotely. Patient reports weight (as measured by home scale) of 216 pounds ([facility]- Dr. Malcolm) PROGRESS: Nutrition Intervention (date of last encounter 01/23/25): Modify type and amount of foods consumed for meals and snacks 1. Read Nutritional Guidelines Section of Your Guide to Surgery by next sessionhttps://my.[email or web address]/-/scassets/files/org/[email or web address]/guides/bmig [email or web address]?la=en 2. Do not skip meals. [...] (16 g protein), Owyn (20 g protein), Tough[place]amon Breakfast Essentials Light Start mixed with fat [...] 45-60 mg, calcium citrate w/ Vit D 4756-5097 mg, Vit B12 500 mcg sublingual pill or liquid, Vit D3 3000 international unit(s), B complex with 75-100 mg thiamin It is ok to take a combination bariatric vitamin to limit pill volume. Here are a few options to consider: - Bariatric Fusion: 4 Complete Multivitamin chewables per day OR 1 Multivitamin capsule and 3653-5211 mg calcium citrate per day OR 2 Multivitamin soft chews per day + 3 calcium citrate soft chews + 1 iron soft chew per day www.bariatricfusion.com - Bariatric Choice: 4 All-in-One Bariatric Multivitamin chewables per day OR 1 Once Daily Bariatric Multivitamin capsule and 9236-7771 mg calcium citrate per day www.bariatricchoice.com - Bariatric Pal: 4 All-in-One Multivitamin chewables per day OR 1 Multivitamin One (chewable or capsule) and 7744-8040 mg calcium citrate per day www.store.bariatricpal.com/collections/bariatric-vitamins - Bariatric Advantage: 1 Ultra Solo multivitamin w/ iron (chewable or capsule) OR 2 chewable Advanced Multi EA w/ iron and 6141-0546 mg calcium citrate per day OR 2 Multi Chewy Bites and 9843-0852 mg calcium citrate and 45-60 mg iron per day www.bariatricadvantage.com - [employer] Health: 1 Bariatric Multivitamin w/ iron (capsule or chewable) and 7893-3671 mg calcium citrate per day www.Zinwave - Celebrate: 2 Multi-Complete (chewable or capsule) OR 1 CelebrateOne Multivitamin capsule and 2939-3361 mg calcium citrate per day OR 2 Multivitamin soft chews + 3 calcium citrate soft chews + 1 iron soft chew per day https://Panjos.[employer] Mobile Technologies - Barilife: 1 Just One Bariatric Multivitamin w/ iron (chewable or capsule) and 3142-7525 mg calcium citrate per day www.CarePayment - Barimelts: 2 Multivitamin w/ iron tablets and 4236-7586 mg calcium citrate per day www.Vupen Pre-op goal weight: 212 pounds Protein needs: [...] of usual intake for (more content not included)...[facility]05-01-2025 NoteEducation (GENBMI) JANAY CRUZ ([id number]) 1995 F Date Time Provider Department 02/12/25 9:45 AM LAURE DHILLON GENBMI Reason for Visit: Patient Education [91] Reassessment [...] morning. Encounter Status:Closed by LAURE DHILLON on 02/12/25[facility] 02-05-2025 NoteHNO ID: [id number] Author: JARON MENDIOLA RDMS, RVT Service: Radiology Author Type: Major Account Representative Type: Progress Notes Filed: 02/05/2025 14:37 Note [...] PATIENT PRESENTS WITH AN IMPLANTABLE OR ATTACHED SEISMIC ENGINEER: No RADIOLOGY DEPARTMENT: Ultrasound PERIPHERAL IV DATA: Not applicable RUQ ultrasound completed. SIGNED BY: Jaron Mendiola RDMS, RVT February 05, 2025 2:[address] [id number] NoteHNO ID: [id number] Author: NANCIE MCCRAY RT(R) Service: Radiology Author Type: Technologist Type: Progress Notes Filed: 02/05/2025 14:18 Note Text: Radiology Service Progress Note PATIENT NAME: Janay DUMONTN: [id number] DATE OF SERVICE: February 05, 2025 TIME: [...] PATIENT PRESENTS WITH AN IMPLANTABLE OR ATTACHED SEISMIC ENGINEER: No RADIOLOGY DEPARTMENT: General X-ray: Exam(s) Completed: Chest X-Ray PERIPHERAL IV DATA: Not applicable SIGNED BY: RT Tania(R) February 05, 2025 2:[address] [facility] [id number] NoteHNO ID: [id number] Author: KARLEE NUNEZ RN Service: ? Author Type: Registered Nurse Type: Progress Notes Filed: 01/28/2025 11:15 Note Text: OUTPATIENT VISIT TYPE NURSE VISIT PATIENT NAME: Janay Cruz DATE OF SERVICE: 01/28/2025 PRIMARY EMS DRIVER: n/a Janay Cruz is a 29 year [...] Karlee Nunez RN January 28, 2025 11:14 [facility]04-16-2025 History of Present illness Narrative* Karlee Nunez RN - 01/28/2025 11:14 AM EDT OUTPATIENT VISIT TYPE NURSE VISIT PATIENT NAME: Janay Cruz DATE OF SERVICE: 01/28/2025 PRIMARY EMS DRIVER: n/a Janay Cruz is a 29 year [...] 28, 2025 11:14 AM documented in this encounterK[facility]-14-[facility] NoteHNO ID: [id number] Author: IVON VENTURA, PhD Service: ? Author Type: Physician Type: Progress Notes Filed: 01/26/2025 13:46 Note Text: [facility] METABOLIC/BARIATRIC SURGERY (MBS) BEHAVIORAL HEALTH EVALUATION Patient name: Janay Cruz Date of service: January 26, 2025 Time of service: 1:00 PM - 1:50 PM Cost center: [facility] CPT code(s): - 5192491 Virtual Psych Diagnostic Eval Billing code: ENDO PSYL MAIN MARTINEZ/Gregoria Session #: 1 Patient is being seen [...] a copy of the consent form via Jumio. Prior to initiating the virtual visit, I communicated my name and active licensure. The patient's identity (name, ) and physical location were verified. Patient was encouraged to move to a private space free of distractions. Either the patient or their legal promotions representative has been informed of the risks [...] contact patient at their preferred phone number ([phone]) or via email ([email or web address]). Extended Emergency Contact Information Primary Emergency Contact: Nati Stephenson, [place] [facility] [employer] Relation: Mother Platform: [employer] for [employer] Address of patient during visit: ([address] [place] [address]) Collateral parties present: none IDENTIFYING INFORMATION Ms. [...] and max weight loss is 10 lbs. [place] that the LSG was less extreme and [...] out sugar, natural eating . Nothing works assisted. The patient denies a history of laxative/diuretic use. The patient denies a history of vomiting to lose weight (more content not included)...[facility]04-11-2025 Instructions* Patient Instructions* Laure Dhillon, NENA - 01/23/2025 1:48 PM EDT Nutrition Intervention 01/23/2025: Modify type and amount of foods consumed for meals and snacks 1. Read Nutritional Guidelines Section of Your Guide to Surgery by next session https://my.[email or web address]/-/scassets/files/org/[email or web address]/[email or web address]?la=e n 2. Do not skip meals. [...] (16 g protein), Owyn (20 g protein), Tough[place]amon Breakfast Essentials Light Start mixed with fat [...] 45-60 mg, calcium citrate w/ Vit D 2279-1494 mg, Vit B12 500 mcg sublingual pill or liquid, Vit D3 3000 international unit(s), B complex with 75-100 mg thiamin It is ok to take a combination bariatric vitamin to limit pill volume. Here are a few options to consider: - Bariatric Fusion: 4 Complete Multivitamin chewables per day OR 1 Multivitamin capsule and 6174-5753 mg calcium citrate per day OR 2 Multivitamin soft chews per day + 3 calcium citrate soft chews + 1 iron soft chew per day www.bariatricfusion.com - Bariatric Choice: 4 All-in-One Bariatric Multivitamin chewables per day OR 1 Once Daily BariatricMultivitamin capsule and 7002-4352 mg calcium citrate per day www.bariatricchoice.com - Bariatric Pal: 4 All-in-One Multivitamin chewables per day OR 1 Multivitamin One (chewable or capsule) and 3254-0394 mg calcium citrate per day www.store.bariatricpal.com/collections/bariatric-vitamins - Bariatric Advantage: 1 Ultra Solo multivitamin w/ iron (chewable or capsule) OR 2 chewable Advanced Multi EA w/ iron and 5546-9874 mg calcium citrate per day OR 2 Multi Chewy Bites and 1495-5366 mgcalcium citrate and 45-60 mg iron per day www.bariatricadvantage.com - Procare Health: 1 Bariatric Multivitamin w/ iron (capsule or chewable) and 3737-7093 mg calcium citrate per day www.Zinwave - Celebrate: 2 Multi-Complete (chewable or capsule) OR 1 CelebrateOne Multivitamin capsule and 5679-9226 mg calcium citrate per day OR 2 Multivitamin soft chews + 3 calcium citrate soft chews + 1 iron soft chew per day https://celebratevitamins.[employer] - Barilife: 1 Just One Bariatric Multivitamin w/ iron (chewable or capsule) and 8685-7082 mg calcium citrate per day www.Intelligent Beauty.[employer] - Barimelts: 2 Multivitamin w/ iron tablets and 2467-9880 mg calcium citrate per day www.barimelts.[employer] Pre-op goal weight: 212 pounds Protein needs: 79 gm per day Navigator: [email or web address] Please follow the below link to join our Navigation Welcome and Next Steps Meeting. Meetings are held weekly on Tuesdays from 12:00-1:00 pm. [email or web address] m Nutrition Monitoring & Evaluation: 1-2 lbs wt loss/week Need for Follow up: as scheduled 02/19 @ 9:45am, scheduling [phone] documented in this encounterK[facility]04-11-[facility] History of Present illness Narrative* Laure Dhillon RD - 01/23/2025 1:15 PM EDT [facility] Nutrition Therapy: Virtual Consult - Re-assessment I have communicated my name and active licensure. The patient s identity and physical location wereverified at the time of this visit. Either the patient or their legal promotions representative has been informed of the risks [...] Your Guide to Surgery by next session https://my.[email or web address]/-/scassets/files/org/[email or web address]/[email or web address]/[email or web address]?la=[email or web address] n 2. Do not skip meals. [...] (16 g protein), Owyn (20 g protein), Tough[place]amon Breakfast Essentials Light Start mixed with fat [...] 45-60 mg, calcium citrate w/ Vit D 1269-2856 mg, Vit B12 500 mcg sublingual pill or liquid, Vit D3 3000 international unit(s), B complex with 75-100 mg thiamin It is ok to take a combination bariatric vitamin to limit pill volume. Here are a few options to consider: - Bariatric Fusion: 4 Complete Multivitamin chewables per day OR 1 Multivitamin capsule and 7343-6413 mg calcium citrate per day OR 2 Multivitamin soft chews per day + 3 calcium citrate soft chews + 1 iron soft chew per day www.bariatricfusion.com - Bariatric Choice: 4 All-in-One Bariatric Multivitamin chewables per day OR 1 Once Daily BariatricMultivitamin capsule and 2478-6721 mg calcium citrate per day www.bariatricchoice.com - Bariatric Pal: 4 All-in-One Multivitamin chewables per day OR 1 Multivitamin One (chewable or capsule) and 8319-9936 mg calcium citrate per day www.Twist and Shout.bariatricpal.com/collections/bariatric-vitamins - Bariatric Advantage: 1 Ultra Solo multivitamin w/ iron (chewable or capsule) OR 2 chewable Advanced Multi EA w/ iron and 4417-4517 mg calcium citrate per day OR 2 Multi Chewy Bites and 7751-2020 mgcalcium citrate and 45-60 mg iron per day www.bariatricadvantage.[employer] - Procare Health: 1 Bariatric Multivitamin w/ iron (capsule or chewable) and 8904-8196 mg calcium citrate per day www.Celulares.com.[employer] - Celebrate: 2 Multi-Complete (chewable or capsule) OR 1 CelebrateOne Multivitamin capsule and 7501-2440 mg calcium citrate per day OR 2 Multivitamin soft chews + 3 calcium citrate soft chews + 1 iron soft chew per day https://celebratevitamins.[employer] - Barilife: 1 Just One Bariatric Multivitamin w/ iron (chewable or capsule) and 7262-1441 mg calcium citrate per day www.barilife.[employer] - Barimelts: 2 Multivitamin w/ iron tablets and 2270-8699 mg calcium citrate per day www.barimelts.[employer] Pre-op goal weight: 212 pounds Protein needs: 79 gm per day Navigator: [email or web address] Please follow the below link to join our Navigation Welcome and Next Steps Meeting. Meetings are held weekly on Tuesdays from 12:00-1:00 pm. [email or web address] m Nutrition Monitoring & Evaluation: 1-2 lbs wt loss/week Need for Follow up: as scheduled 02/19 @ 9:45am, scheduling [phone] PROGRESS: Interval History: Patient presents for follow [...] to assist weight loss. Vitamins reviewed today. [place] body weight: 145 lbs. Excess body weight: 74 lbs. (Updated - based on 219 lbs today) Goal weight pre-op: 212 lbs. Protein needs estimated: 79 gm (1.2 g protein/kg IBW) Patient meets the National Institutes of Health guidelines for weight loss surgery and has [facility] Medicaid Insurance therefore is required to complete 0 months of Nutrition Intervention for clearance for surgery. Today is visit 2 of 0 ([facility] 12/13/23, 01/23/25) Patient needs to demonstrate consistent effort in making dietary changes before being cleared for surgery. It is anticipated that the patient will need at least 1-2 nutritional follow-up visits priorto clearance for surgery. Nutrition Intervention 12/13/2023: Modify type and amount of foods consumed for meals and snacks 1. Read Nutritional Guidelines Section of Your Guide to Surgery by next session https://my.[email or web address]/-/scassets/files/org/[email or web address]/guides/[email or web address]?la=e n 2. Do not skip meals. [...] (16 g protein), Owyn (20 g protein), Tough[place]amon Breakfast Essentials Light Start mixed with fat [...] 45-60 mg, calcium citrate w/ Vit D 5250-4636 mg, Vit B12 500 mcg sublingual pill or liquid, Vit D3 3000 international unit(s), B complex with 75-100 mg thiamin It is ok to take a combination bariatric vitamin to limit pill volume. Here are a few options to consider: - Bariatric Fusion: 4 Complete Multivitamin chewables per day OR 1 Multivitamin capsule and 4174-4694 mg calcium citrate per day OR 2 Multivitamin soft chews per day + 3 calcium citrate soft chews + 1 iron soft chew per day www.bariatricfusion.com - Bariatric Choice: 4 All-in-One Bariatric Multivitamin chewables per day OR 1 Once Daily BariatricMultivitamin capsule and 6045-9702 mg calcium citrate per day www.bariatricchoice.com - Bariatric Pal: 4 All-in-One Multivitamin chewables per day OR 1 Multivitamin One (chewable or capsule) and 6113-6930 mg calcium citrate per day www.Twist and Shout.bariatricpal.com/collections/bariatric-vitamins - Bariatric Advantage: 1 Ultra Solo multivitamin w/ iron (chewable or capsule) OR 2 chewable Advanced Multi EA w/ iron and 9514-4583 mg calcium citrate per day OR 2 Multi Chewy Bites and 1191-3028 mgcalcium citrate and 45-60 mg iron per day www.bariatricadvantage.[employer] - Procare Health: 1 Bariatric Multivitamin w/ iron (capsule or chewable) and 0913-2053 mg calcium citrate per day www.Zinwave - Celebrate: 2 Multi-Complete (chewable or capsule) OR 1 CelebrateOne Multivitamin capsule and 9221-8073 mg calcium citrate per day OR 2 Multivitamin soft chews + 3 calcium citrate soft chews + 1 iron soft chew per day https://celebratevitamins.com - Barilife: 1 Just One Bariatric Multivitamin w/ iron (chewable or capsule) and 4854-3559 mg calcium citrate per day www.Intelligent Beauty.[employer] - Barimelts: 2 Multivitamin w/ iron tablets and 3225-1980 mg calcium citrate per day www.barimelCohera Medical.[employer] Pre-op goal weight: 199 pounds Protein needs: [...] 2025 TIME: 2:33 PM documented in this encounterK[facility]04-11-2025 NoteHNO ID: [id number] Author: LAURE DHILLON RD Service: ? Author Type: Registered Dietitian Type: Progress Notes Filed: 01/23/2025 13:49 Note Text: [facility] Nutrition Therapy: Virtual Consult - Re-assessment I have communicated my name and active licensure. The patient?s identity and physical location were verified at the time of this visit. Either the patient or their legal promotions representative has been informed of the risks [...] of Your Guide to Surgery by next sessionhttps://[facility].org/-/scassets/files/org/[email or web address]/guides/bmig uidebook-[email or web address]?la=en 2. Do not skip meals. [...] (16 g protein), Owyn (20 g protein), Toughkenamon Breakfast Essentials Light Start mixed with fat [...] 45-60 mg, calcium citrate w/ Vit D 7205-5496 mg, Vit B12 500 mcg sublingual pill or liquid, Vit D3 3000 international unit(s), B complex with 75-100 mg thiamin It is ok to take a combination bariatric vitamin to limit pill volume. Here are a few options to consider: - Bariatric Fusion: 4 Complete Multivitamin chewables per day OR 1 Multivitamin capsule and 0999-0203 mg calcium citrate per day OR 2 Multivitamin soft chews per day + 3 calcium citrate soft chews + 1 iron soft chew per day www.bariatricfusion.com - Bariatric Choice: 4 All-in-One Bariatric Multivitamin chewables per day OR 1 Once Daily Bariatric Multivitamin capsule and 7636-2779 mg calcium citrate per day www.bariatricchoice.com - Bariatric Pal: 4 All-in-One Multivitamin chewables per day OR 1 Multivitamin One (chewable or capsule) and 5875-9309 mg calcium citrate per day www.Twist and Shout.bariatricpal.[employer]/collections/bariatric-vitamins - Bariatric Advantage: 1 Ultra Solo multivitamin w/ iron (chewable or capsule) OR 2 chewable Advanced Multi EA w/ iron and 5943-5175 mg calcium citrate per day OR 2 Multi Chewy Bites and 9644-2862 mg calcium citrate and 45-60 mg iron per day www.bariatricadvantage.com - Procare Health: 1 Bariatric Multivitamin w/ iron (capsule or chewable) and 2528-5809 mg calcium citrate per day www.Celulares.com.[employer] - Celebrate: 2 Multi-Complete (chewable or capsule) OR 1 CelebrateOne Multivitamin capsule and 6074-4673 mg calcium citrate per day OR 2 Multivitamin soft chews + 3 calcium citrate soft chews + 1 iron soft chew per day https://celebratevitamins.Innovative Mobile [employer] - Barilife: 1 Just One Bariatric Multivitamin w/ iron (chewable or capsule) and 7379-6054 mg calcium citrate per day www.bariNextPrinciples.[employer] - Barimelts: 2 Multivitamin w/ iron tablets and 7508-4123 mg calcium citrate per day www.barimelts.com Pre-op goal weight: 212 pounds Protein needs: 79 gm per day Navigator: [email or web address] Please follow the below link to join our Navigation Welcome and Next Steps Meeting. Meetings are held weekly on Tuesdays from 12:00-1:00 pm. [email or web address] m Nutrition Monitoring AND Evaluation: 1-2 lbs wt loss/week Need for Follow up: as scheduled 02/19 @ 9:45am, scheduling [phone] PROGRESS: Interval History: Patient presents for follow up nutrition consult in preparation for LSG with Dr. Malcolm. Weight change since last visit +13 lbs (206 lbs). Patient states she was hesitant about surgery and tried to lose weig (more content not included)...[facility]04-09-2025 Instructions* Patient Instructions* Shankar Britt MD - 01/21/2025 3:04 PM EDT Dear Janay, It was very nice to meet you! Thank you for completing your visit today and welcome to the [facility]ric and Met[facility] [place] surgery program! Below is a brief summary of what we discussed during the visit: 1. As a part of your pre-bariatric surgery evaluation, please complete the following tests ordered during this visit: EKG, chest x-ray, and abdominal ultrasound - an appointment is needed for each of these tests. You may call your local [facility] to get an appointment. Lab work - no appointment is needed for lab tests, you may complete at any [facility] Laboratory. These are usually fasting labs, please be sure to fast (only water permitted) for 10-12 hours prior to the test. Any testing that is completed outside of [facility] will need faxed to [phone]. To schedule a [facility] Provider follow up visit - please call [phone] OR [phone] for assistance with scheduling. Below is additional helpful information: # Bariatric surgery contact information and resources We are sure that you will still have some additional questions and encourage you to reach out to your healthcare provider via BuildingIQt OR your Patient Navigator. The contact information for each Navigator is listed below: Khadra Montoya and Alisa: Gladis Wise at [email or web address] Khadra Castellon, Leslye, and Emelia: Belinda Astudillo at [email or web address] Drs Olayinka Ignacio, Rhonda, and Gold: Nafisa Arboleda at [email or web address] Hayder Pryor, and Thompson: Bisi Hill at [email or web address] # Bariatric Surgery Program Weekly Navigation [...] Link to the bariatric surgery weekly webinar: [email or web address] # Guide to Bariatric Surgery Book Additionally, [...] Link to the Bariatric surgery guide book: https://my.[facility].org/-/scassets/files/org/bariat param/guides/bmiguidebook-march2020.ashx?la=en Appointment Tracker for the Bariatric Surgery Program It is important to keep track of your scheduled appointments to ensure successful completion of oursurgical program. Any missed appointments can further delay your pre-surgical work-up. [facility] does offer an opt-in option for getting text message appointment reminders. Please follow the link below if you would like to opt into this service. Link to the Appointment Reminder Checklist: [email or web address] [email or web address] January 05, 2025 Dear Janay Cruz Welcome to our Bariatric Program My name is Jenny Hickman and I am your patient navigator for the bariatric surgery program. We'reglad you chose the [facility]ric and [facility] [place] (BMI) We verified your coverage for bariatric surgery with your insurance company, though we strongly recommend you also confirm coverage directly with your insurance by calling the Member Services phone number on the back of your insurance card. It is important you understand your financial responsibility for specialty office visits, co-pays and tne-ou-puohxe expenses, and inpatient bariatric surgery.Some outpatient services [...] Jenny Hickman Patient Navigator [facility] [place] Staff documented in this encounterK[facility]04-09-[facility]25 History of Present illness Narrative* Shankar Britt [...] back to the requesting physician [facility] or via [place] mail. 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 No history of T2DM or [...] which included preparing to see the patient, luaq-iv-zoln patient care, completing clinical documentation, performing a medically appropriate examination, counseling and educating the patient/family/caregiver, and ordering medications, tests,or procedures. Patient was discussed with Dr. Alejandre. Shankar Britt MD, MSc, MPH, KATHLEEN Obesity Medicine Fellow This note was created using BlackArrow dictation software and may contain errors that were inadvertently missed during proofreading. If you have any concerns regarding this dictation, please feel free tocontact me for clarification. documented in this encounterKettering [facility]04-09-2025 NoteHNO ID: [id number] Author: SHANKAR BRITT MD Service: ? 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 No history of T2DM or [...] a mobility device Endocrine (more content not included)...[facility]04-08-20[facility] History of Present illness Narrative* Janet Malcolm [...] goal weight prior to liquid fast: Per fitness sales associate Surgically Cleared with completion of the below: [...] Level: 4 - Moderate documented in this encounterKettering [facility]04-08-2025 NoteHNO ID: [id number] Author: JANET MALCOLM MD Service: ? Author [...] goal weight prior to liquid fast: Per fitness sales associate Surgically Cleared with completion of the below: [...] factors Medical Decision Making Level: 4 - ModerateOhiohealth03-27-2025 NoteHNO ID: [id number] Author: HOLLY MONTOYA MD Service: ? Author [...] with bariatric surgery. [facility] History of Present illness Narrative* Holly Montoya [...] MD January 08, 2025 documented in this encounterKettering [facility]03-10-2025 History of Present illness Narrative* Nelda Uribe [...] any recent labs. Pt is UTD with RECORD CENTER COORDINATOR. Pt would like to discuss weight loss [...] at risk (01/07/2024) Received from [facility] PHQ-2 PHQ-2 score: 0 Housing Stability: Not [...] - Insulin, fasting Low HDL (under 40) ([facility]/HCC) - Hemoglobin A1c - Comprehensive metabolic panel - CBC - Lipid panel - Tsh+free t4 - Insulin, fasting Labs to be completed. Advised on diet modifications and starting to exercise. Will see back in 2 weeks to review labs, see how exercise is going and further discuss weight loss meds. Follow up in about 2 weeks (around 01/05/2025). documented in this encounterScotland [facility] HospitalMcvejuwojh[facility] Telephone encounter Note* Telephone Encounter - Anna Gordillo - 03/19/2024 8:10 AM EDT Received letter from [facility] stating, patient was scheduled on 03/12/2024 for an EGD. She no showed and has not rescheduled. They are closing the referral at this time, Thank You! [facility]06-05-2024 Miscellaneous Notes* Telephone Encounter - Anna Gordillo - 03/19/2024 8:10 AM EDT Received letter from [facility] stating, patient was scheduled on 03/12/2024 for an EGD. She no showed and has not rescheduled. They are closing the referral at this time, Thank You! documented in this encounterKettering Health [facility]04-08-2024 History of Present illness Narrative* Sabi Patton [...] PATIENT PRESENTS WITH AN IMPLANTABLE OR ATTACHED SEISMIC ENGINEER: No RADIOLOGY DEPARTMENT: General X-ray: Exam(s) Completed: Chest X-Ray PERIPHERAL IV DATA: Not applicable SIGNED BY: RT Ella(R) January 21, 2024 9:39 AM documented in this encounterKettering Health [facility] Center04-08-2024 History of Present illness Narrative* Nancie Collins [...] PATIENT PRESENTS WITH AN IMPLANTABLE OR ATTACHED SEISMIC ENGINEER: No RADIOLOGY DEPARTMENT: Ultrasound PERIPHERAL IV DATA: Not applicable SIGNED BY: RT Dianna(Conrad) January 21, 2024 9:41 AM documented in this encounterKettering Health [facility] Center03-08-2024 History of Present illness Narrative* Janet Malcolm [...] goal weight prior to liquid fast: Per fitness sales associate Surgically Cleared with completion of the below: [...] Level: 4 - Moderate documented in this encounterKettering Health Behavior[facility] Center02-29-2024 Instructions* Patient Instructions* Laure Dhillon, NENA - 12/13/2023 9:42 AM EST Nutrition Intervention 12/13/2023: Modify type and amount of foods consumed for meals and snacks 1. Read Nutritional Guidelines Section of Your Guide to Surgery by next session https://my.[facility].org/-/scassets/files/org/bariatric/guides/bmiguidebook-march2020.ashx?la=e n 2. Do not skip meals. [...] (16 g protein), Owyn (20 g protein), Toughkenamon Breakfast Essentials Light Start mixed with fat [...] 45-60 mg, calcium citrate w/ Vit D 5784-9549 mg, Vit B12 500 mcg sublingual pill or liquid, Vit D3 3000 international unit(s), B complex with 75-100 mg thiamin It is ok to take a combination bariatric vitamin to limit pill volume. Here are a few options to consider: - Bariatric Fusion: 4 Complete Multivitamin chewables per day OR 1 Multivitamin capsule and 2099-6639 mg calcium citrate per day OR 2 Multivitamin soft chews per day + 3 calcium citrate soft chews + 1 iron soft chew per day www.bariatricfusion.com - Bariatric Choice: 4 All-in-One Bariatric Multivitamin chewables per day OR 1 Once Daily BariatricMultivitamin capsule and 3413-4035 mg calcium citrate per day www.bariatricchoice.com - Bariatric Pal: 4 All-in-One Multivitamin chewables per day OR 1 Multivitamin One (chewable or capsule) and 6999-9559 mg calcium citrate per day www.Twist and Shout.bariatricpal.[employer] Mobile [employer]/collections/bariatric-vitamins - Bariatric Advantage: 1 Ultra Solo multivitamin w/ iron (chewable or capsule) OR 2 chewable Advanced Multi EA w/ iron and 6340-2530 mg calcium citrate per day OR 2 Multi Chewy Bites and 4209-3524 mgcalcium citrate and 45-60 mg iron per day www.bariatricadvantage.com - Procare Health: 1 Bariatric Multivitamin w/ iron (capsule or chewable) and 5850-6628 mg calcium citrate per day www.Zinwave - Celebrate: 2 Multi-Complete (chewable or capsule) OR 1 CelebrateOne Multivitamin capsule and 8899-8011 mg calcium citrate per day OR 2 Multivitamin soft chews + 3 calcium citrate soft chews + 1 iron soft chew per day https://Chirp Interactive.[employer] - Barilife: 1 Just One Bariatric Multivitamin w/ iron (chewable or capsule) and 3441-4031 mg calcium citrate per day www.Intelligent Beauty.[employer] - Barimelts: 2 Multivitamin w/ iron tablets and 4753-1589 mg calcium citrate per day www.DreamSaver Enterprisesmelts.com Pre-op goal weight: 199 pounds Protein needs: 77 gm per day Navigator: Bisi Woodswaltradhahansseverino [email or web address] Please follow the below link to join our Navigation Welcome and Next Steps Meeting. Meetings are held weekly on Tuesdays from 12:00-1:00 pm. [email or web address] m Nutrition Monitoring & Evaluation: 1-2 lbs wt loss/week Need for Follow up: December - Karlene Wise APRN.SIGNS CLEANER; January - Laure Dhillon RD, LD documented in this encounterKettering Health [facility] Center02-29-2024 History of Present illness Narrative* Laure Dhillon RD - 12/13/2023 9:00 AM EST The [facility] Nutrition Therapy: Virtual Consult - Initial Assessment I have communicated my name and active licensure. The patient s identity and physical location wereverified at the time of this visit. Either the patient or their legal promotions representative has been informed of the risks [...] Your Guide to Surgery by next session https://my.[facility].org/-/scassets/files/org/bariatric/guides/bmiguidebook-march2020.[email or web address]?la=e n 2. Do not skip meals. [...] (16 g protein), Owyn (20 g protein), Toughkenamon Breakfast Essentials Light Start mixed with fat [...] 45-60 mg, calcium citrate w/ Vit D 0458-1086 mg, Vit B12 500 mcg sublingual pill or liquid, Vit D3 3000 international unit(s), B complex with 75-100 mg thiamin It is ok to take a combination bariatric vitamin to limit pill volume. Here are a few options to consider: - Bariatric Fusion: 4 Complete Multivitamin chewables per day OR 1 Multivitamin capsule and 6365-7217 mg calcium citrate per day OR 2 Multivitamin soft chews per day + 3 calcium citrate soft chews + 1 iron soft chew per day www.bariatricfusion.com - Bariatric Choice: 4 All-in-One Bariatric Multivitamin chewables per day OR 1 Once Daily BariatricMultivitamin capsule and 2166-3320 mg calcium citrate per day www.bariatricchoice.com - Bariatric Pal: 4 All-in-One Multivitamin chewables per day OR 1 Multivitamin One (chewable or capsule) and 5388-6990 mg calcium citrate per day www.store.bariatricpal.com/collections/bariatric-vitamins - Bariatric Advantage: 1 Ultra Solo multivitamin w/ iron (chewable or capsule) OR 2 chewable Advanced Multi EA w/ iron and 8564-6726 mg calcium citrate per day OR 2 Multi Chewy Bites and 9201-5951 mgcalcium citrate and 45-60 mg iron per day www.bariatricadvantage.com - Procare Health: 1 Bariatric Multivitamin w/ iron (capsule or chewable) and 1970-4731 mg calcium citrate per day www.Zinwave - Celebrate: 2 Multi-Complete (chewable or capsule) OR 1 CelebrateOne Multivitamin capsule and 7773-2073 mg calcium citrate per day OR 2 Multivitamin soft chews + 3 calcium citrate soft chews + 1 iron soft chew per day https://celebrateBonobos.[employer] - Barilife: 1 Just One Bariatric Multivitamin w/ iron (chewable or capsule) and 8447-9528 mg calcium citrate per day www.bariEverSport Media - Barimelts: 2 Multivitamin w/ iron tablets and 2300-8225 mg calcium citrate per day www.barimelts.[employer] Pre-op goal weight: 199 pounds Protein needs: 77 gm per day Navigator: [email or web address] Please follow the below link to join our Navigation Welcome and Next Steps Meeting. Meetings are held weekly on Tuesdays from 12:00-1:00 pm. [email or web address].Panacela Labs.[employer]ative Mobile Technologies/[email or web address] m Nutrition Monitoring & Evaluation: 1-2 lbs wt loss/week Need for Follow up: December - Karlene Wise APRN.SIGNS CLEANER; January - Laure Dhillon RD, LD Patient [...] including and structured exercise at this time. [place] body weight: 141 lbs. Excess body weight: 65 lbs. (Based on initial 206 lbs today) Goal weight pre-op: 199 lbs. Protein needs estimated: 77 gm (1.2 g protein/kg IBW) Patient meets the National Institutes of Health guidelines for weight loss surgery and has [facility] Medicaid Insurance therefore is required to complete 6 months of Nutrition Intervention for clearance for surgery. Today is visit 1 of 6 ([facility] 12/13/23). Patient's symptoms are: Weight Concerns: weight [...] 12/13/2023 TIME: 9:34 AM documented in this encounterKettering Health Behavioral [facility] Center02-15-2024 Instructions* Patient Instructions* Nataliia Ramos MD - 11/29/2023 9:03 AM EST Thank you for choosing the [facility] Department of Endocrinology, Diabetes and Metabolism. Did you know that you need to call 48 hours in advance of your scheduled visit, if you are unable to make your appointment? The [facility]inology [facility] [place] thanks you for your commitment, because patients not showing to their appointment results in a lost opportunity for patients to receive [facility] health care at the [facility]. To Cancel an appointment, please choose one of the following: - Call the Appointment Call Center at [phone] - From Jumio, Go to Appointments - Cancel Appts If cancelling, consider your need to reschedule to prevent further delays in your care. To Schedule an appointment, please choose one of the following: - Call the Appointment Call Center at [phone] - From Jumio, Go to Appointments - Request an Appt It was nice meeting you today, Janay! Please call this number to schedule: [phone] -- keep record of your food intake - it may be useful to use a website called InHiro, whichhas numerous charts of phone apps to [...] to register for this by going to: www.Lee Silber.Innovative Mobile Technologies SHORT VERSION (1) enroll in our surgical program - [email or web address]. Then (2) watch a video and after [...] meet the insurance requirement. documented in this encounterKettering Health Behavior[facility] Center02-15-2024 History of Present illness Narrative* Nataliia Ramos [...] Tobacco: yes. 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 documented in this encounterKettering Health [facility] Center07-24-2022 Progress note Author Mary Jo Browne [facility] May 07, 2022 7:55amNote Date/TimeJuly 2021 7:41[place] [address] 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 Signed Patient: Janay Cruz MR#: [id number] : 1995 Acct:[id number] Age/Sex: 26 / F Adm Date: 2 Loc: Room: [address] [place] [address] Type : ADM IN Attending Dr: Fely Wood DO Copies to: ~ Date of Service: 05/07/2022 OB - PN: Subj Subjective Post Delivery Day #: Day 2 Patient comments: no complaints and pain well controlled baby status: doing well [place] feeding status: exclusively bottle feeding OB - [...] by Mary Jo Browne DO> 05/07/22 0755 [facility] Work Phone: 1(840) 216-540707-23-2022 Progress note Author Aakash Cavazos [facility] May 06, 2022 9:56amNote Date/TimeJuly 2021 9:56[place] [address] 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 Signed Patient: Janay Cruz MR#: [id number] : 1995 Acct:[id number] Age/Sex: 26 / F Adm Date: 2 Loc: Room: [address] [place] [address] Type : ADM IN Attending Dr: Fely Wood DO Copies to: ~ Date of Service: 05/06/2022 OB - PN: Subj Subjective Post Delivery Day #: Day 1 Patient comments: no complaints and pain well controlled baby status: doing well [place] feeding status: exclusively bottle feeding OB - [...] <Electronically signed by BHAVYA Cavazos> 05/06/22 0956 [facility] Work Phone: 1(586) 458-977507-22-2022 [facility] noteSub[facility] HospitalConsult note* Clinical Note Date No Information [facility] Work Phone: Discharge summary* Clinical Note Date No Information [facility] Work Phone: Evaluation noteNo assessment information available [facility] Work Phone: Evaluation note* Diagnosis Class 2 severe obesity with serious comorbidity and body mass index (BMI) of 35.0 to 35.9 in adult,unspecified obesity type (HCC)- Primary documented in this encounter [facility] note* Diagnosis Obesity, Class II, BMI 35-39.9- Primary Obesity, unspecified Dietary counseling and surveillance Dietary surveillance and counseling documented in this encounter [facility] note* Diagnosis Obesity, Class II, BMI 35-39.9- Primary Obesity, unspecified documented in this encounter [facility] note* Diagnosis Class 2 severe obesity with serious comorbidity and body mass index (BMI) of 37.0 to 37.9 in adult,unspecified obesity type (HCC) documented in this encounter [facility] note* Diagnosis Class 2 severe obesity with serious comorbidity and body mass index (BMI) of 37.0 to 37.9 in adult,unspecified obesity type (HCC) documented in this encounter [facility] note* Diagnosis Obesity (BMI 30-39.9)- Primary Insulin resistance Other abnormal glucose Low HDL (under 40) (CMS/HCC) documented in this encounter [facility]* Diagnosis Morbid obesity (HCC)- Primary Morbid obesity documented in this encounter [facility] note* Diagnosis Morbid obesity (HCC)- Primary Morbid obesity [facility]* Diagnosis Class 2 severe obesity with serious comorbidity and body mass index (BMI) of 37.0 to 37.9 in adult,unspecified obesity type (HCC)- Primary Encounter for other preprocedural examination Unspecified essential hypertension Fatty liver Other chronic nonalcoholic liver disease Dyslipidemia Other and unspecified hyperlipidemia Prediabetes Other abnormal glucose documented in this encounter [facility] note* Diagnosis Obesity, Class II, BMI 35-39.9- Primary Obesity, unspecified Dietary counseling and surveillance Dietary surveillance and counseling documented in this encounter [facility] note* Diagnosis Encounter for other preprocedural examination documented in this encounter [facility] note* Diagnosis Obesity, Class II, BMI 35-39.9- Primary Obesity, unspecified Dietary counseling and surveillance Dietary surveillance and counseling documented in this encounter [facility] note* Diagnosis Morbid obesity due to excess calories (HCC)- Primary documented in this encounter [facility] note* Type Assessment Date No Information [facility] Work Phone: Evaluation note* Diagnosis Skin tag Unspecified hypertrophic and atrophic condition of skin Exposure to STD Vaginal discharge Leukorrhea, not specified as infective Hymenal remnant documented in this encounter [facility]* Diagnosis Obesity, Class II, BMI 35-39.9- Primary Obesity, unspecified Pre-op testing Preoperative examination, unspecified Morbid obesity due to excess calories (HCC) Morbid obesity due to excess calories (HCC) documented in this encounter [facility] Rehabilitation note* Diagnosis Obesity, Class II, BMI 35-39.9- Primary Obesity, unspecified Dietary counseling and surveillance Dietary surveillance and counseling Morbid obesity due to excess calories (HCC) [facility] Pre-op examination- Primary Preoperative examination, [...] 145/78 11/29/2023 144/68 [facility] Pre-op examination Dyspareunia in female Hymenal remnant documented in this encounter [facility] Clinical Note Date No Information [facility] Work Phone: History of Past illness Narrative* Condition Effective Dates (start - stop) O utcome No Information [facility] Work Phone: History of Present illness Narrative* Encounter Date Complaint History Of Prese nt Illness No Information [facility] Work Phone: Instructions* Date Instruction Additional Infor mation No Information [facility] Work Phone: Progress note* Clinical Note Date No Information [facility] Work Phone: Reason for referral (narrative)* Outpatient Procedure (Routine) - Pending ReviewSpecialtyDiagnoses / ProceduresReferred By Contact [facility] Diagnoses Obesity, Class II, BMI 35-39.9 Procedures EGD DIAGNOSTIC ESOPHAGOGASTRODUODENOSCOPY [place] [address] [place] [address] [facility] [place] [address] [place] [address] Referral IDStatusReasonNorth [place] DateExpiration DateVisits RequestedVisits [id number] Auto-Generated Referral [facility] for referral (narrative)* Reason For Referral No Information [facility] Work Phone: Reason for visit Narrative* Diagnostic Procedure Only (Routine) - ClosedSpecialtyDiagnoses / ProceduresReferred By ContactReferred To [facility]AG[facility] Diagnoses Class 2 severe obesity with serious comorbidity and body mass index (BMI) of 37.0 to 37.9 in adult,unspecified obesity type (HCC) Procedures US ABD RIGHT UPPER QUADRANT US ABDOMINAL REAL TIME W/IMAGE LIMITED Karlene Wise, LIANNA.SIGNS CLEANER [id number] [facility] [place] [address] Referral IDStatusReasonStart DateExpiration DateVisits RequestedVisits [id number] Auto-Generated Referral / [facility] of systems Narrative - Reported* System Pos/Neg Findings No Information [facility] Work Phone: Summary Purpose Family History No Family History Records Found Relationship Condition Age at Onset Recorded Date/T stephenie Not Specified Diabetes mellitus Unknown Celiac diseaseUnknown Family Member Type Diagnosis Age At Onset No Information Advance Directives No Advanced Directives Records FoundDocuments on File TypeDate RecordedPatient RepresentativeExplanationACP-Advance DirectiveACP-Power of AttorneyCode StatusDate ActivatedDate InactivatedCommentsFull Code03/19/2016 7:03 AM03/20/2016 6:59 PMFull Code03/19/2016 2:08 AM03/19/2016 7:03 AMFull Code 03/18/2016 10:16 AM03/19/2016 2:08 AMTypeDate RecordedPatient Maintenance Tech ExplanationACP-Advance DirectiveACP-Power of AttorneyCode StatusDate Activated Date InactivatedCommentsFull Code01/13/2021 5:28 PMFull Code01/12/2021 7:33 PM 01/13/2021 5:27 PMFull Code03/19/2016 7:03 AM03/20/2016 6:59 PMFull Code03/19/2016 2:08 AM03/19/2016 7:03 AMFull Code03/18/2016 10:16 AM03/19/2016 2:08 AM Advance Directive Response Recorded Date/ Time Advance Directives No May 02 7:31pm Directive Yes / No Effective Date File Name No Information Reason for Referral StatusReasonSpecialtyDiagnoses / ProceduresReferred By ContactReferred To ContactClosedRadiology Diagnoses test positive Amenorrhea Procedures US OB LESS THAN 14 WEEKS SINGLE OR FIRST GESTATION Gerri Salmeron MD [address] [place] [address] StatusReasonSpecialtyDiagnoses / ProceduresReferred By ContactReferred To ContactClosedRadiology Diagnoses Encounter for supervision of other normal in second trimester 15 weeks gestation of Procedures US OB 14 PLUS WEEKS SINGLE OR FIRST GESTATION Gerri Salmeron MD [address] [place] [address] StatusReasonSpecialtyDiagnoses / ProceduresReferred By ContactReferred To ContactOpenRadiology Diagnoses Encounter for supervision of other normal in second trimester 25 weeks gestation of Procedures [place] [address] [place] [address] StatusReasonSpecialtyDiagnoses / ProceduresReferred By ContactReferred To ContactPending ReviewRadiology Diagnoses Encounter for supervision of other normal in second trimester 25 weeks gestation of Procedures US OB 1 OR MORE FETUS LIMITED Gerri Salmeron MD [facility] [place] [address] SpecialtyDiagnoses / ProceduresReferred By ContactReferred To Contact Diagnoses Class 2 severe obesity with serious comorbidity and body mass index (BMI) of 35.0 to 35.9 in adult,unspecified obesity type (HCC) Procedures CONSULT [facility] OFFICE/OUTPATIENT [facility] 60 MINUTES Nataliia Ramos MD [address] [place] [address] Referral IDStatusReasonStart DateExpiration DateVisits RequestedVisits [id number] PCP Requested Referral / Assessments Diagnosis test positive examination or test, [...] the patient's : Anthony, Baby Girl Janay [[id number]] female Weight: 7 lb 12 oz (3.515 [...] be sent through Care Everywhere. * Care (Liberian) * OB CORONAVIRUS (COVID-19): , AND BABY CARE DISCHARGE INSTRUCTIONS documented in this encounter History of Present Illness * Vickie Singletary, - 01/13/2021 1:33 PM EDT Images from the original note were not included. Patient Name: Janay Cruz Patient : 1995 Room[facility]: [facility]323- Admission Date/Time: 01/12/2021 7:25 PM Date: 01/13/2021 [...] section and content) DATE CREATED AUTHOR 07/30/2018 [facility] DATE CREATED AUTHOR AUTHOR'S ORGANIZ ATION 09/15/2018 [facility] DATE CREATED AUTHOR AUTHOR'S ORGANIZ ATION 01/05/2021 [facility] DATE CREATED AUTHOR AUTHOR'S ORGANIZ ATION 01/15/2021 [facility] DATE CREATED AUTHOR AUTHOR'S ORGANIZ ATION 02/18/2022 [facility] DATE CREATED AUTHOR AUTHOR'S ORGANIZ ATION 12/15/2022 [facility] DATE CREATED AUTHOR AUTHOR'S ORGANIZ ATION 07/22/2023 [facility] DATE CREATED AUTHOR AUTHOR'S ORGANIZ ATION 02/08/2025 [facility] DATE CREATED AUTHOR AUTHOR'S ORGANIZ ATION 05/09/2025 [facility] DATE CREATED AUTHOR AUTHOR'S ORGANIZ ATION 07/03/2025 [facility] DATE CREATED AUTHOR AUTHOR'S ORGANIZ ATION 07/09/2025 [facility] DATE CREATED AUTHOR AUTHOR'S ORGANIZ ATION 08/07/2025 [facility] Comments (unrecognize d section and content) In the event this informatio n is protected by the Federal Confidentiality of Alcohol and Drug Abuse Patient Records regulations: The Federal rules restrict any use of the information to criminally investigate or prosecute any alcohol or drug abuse patient.[facility] CenterIn the event this information is protected by the Federal Confidentiality of Alcohol and Drug Abuse Patient Records regulations: The Federal rules restrict any use of the information to criminally investigate or prosecute any alcohol or drug abuse patient.[facility] CenterIn the event this information is protected by the Federal Confidentiality of Alcohol and Drug Abuse Patient Records regulations: The Federal rules restrict any use of the information to criminally investigate or prosecute any alcohol or drug abuse patient.[facility] CenterIn the event this information is protected by the Federal Confidentiality of Alcohol and Drug Abuse Patient Records regulations: The Federal rules restrict any use of the information to criminally investigate or prosecute any alcohol or drug abuse patient.[facility] CenterIn the event this information is protected by the Federal Confidentiality of Alcohol and Drug Abuse Patient Records regulations: The Federal rules restrict any use of the information to criminally investigate or prosecute any alcohol or drug abuse patient.[facility] CenterIn the event this information is protected by the Federal Confidentiality of Alcohol and Drug Abuse Patient Records regulations: The Federal rules restrict any use of the information to criminally investigate or prosecute any alcohol or drug abuse patient.[facility] CenterIn the event this information is protected by the Federal Confidentiality of Alcohol and Drug Abuse Patient Records regulations: The Federal rules restrict any use of the information to criminally investigate or prosecute any alcohol or drug abuse patient.[facility] CenterIn the event this information is protected by the Federal Confidentiality of Alcohol and Drug Abuse Patient Records regulations: The Federal rules restrict any use of the information to criminally investigate or prosecute any alcohol or drug abuse patient.[facility] CenterIn the event this information is protected by the Federal Confidentiality of Alcohol and Drug Abuse Patient Records regulations: The Federal rules restrict any use of the information to criminally investigate or prosecute any alcohol or drug abuse patient.[facility] CenterIn the event this information is protected by the Federal Confidentiality of Alcohol and Drug Abuse Patient Records regulations: The Federal rules restrict any use of the information to criminally investigate or prosecute any alcohol or drug abuse patient.[facility] CenterIn the event this information is protected by the Federal Confidentiality of Alcohol and Drug Abuse Patient Records regulations: The Federal rules restrict any use of the information to criminally investigate or prosecute any alcohol or drug abuse patient.[facility] CenterIn the event this information is protected by the Federal Confidentiality of Alcohol and Drug Abuse Patient Records regulations: The Federal rules restrict any use of the information to criminally investigate or prosecute any alcohol or drug abuse patient.[facility] CenterIn the event this information is protected by the Federal Confidentiality of Alcohol and Drug Abuse Patient Records regulations: The Federal rules restrict any use of the information to criminally investigate or prosecute any alcohol or drug abuse patient.[facility] CenterIn the event this information is protected by the Federal Confidentiality of Alcohol and Drug Abuse Patient Records regulations: The Federal rules restrict any use of the information to criminally investigate or prosecute any alcohol or drug abuse patient.[facility] CenterIn the event this information is protected by the Federal Confidentiality of Alcohol and Drug Abuse Patient Records regulations: The Federal rules restrict any use of the information to criminally investigate or prosecute any alcohol or drug abuse patient.[facility] CenterIn the event this information is protected by the Federal Confidentiality of Alcohol and Drug Abuse Patient Records regulations: The Federal rules restrict any use of the information to criminally investigate or prosecute any alcohol or drug abuse patient.[facility] CenterIn the event this information is protected by the Federal Confidentiality of Alcohol and Drug Abuse Patient Records regulations: The Federal rules restrict any use of the information to criminally investigate or prosecute any alcohol or drug abuse patient.[facility] CenterIn the event this information is protected by the Federal Confidentiality of Alcohol and Drug Abuse Patient Records regulations: The Federal rules restrict any use of the information to criminally investigate or prosecute any alcohol or drug abuse patient.[facility] CenterIn the event this information is protected by the Federal Confidentiality of Alcohol and Drug Abuse Patient Records regulations: The Federal rules restrict any use of the information to criminally investigate or prosecute any alcohol or drug abuse patient.[facility] CenterIn the event this information is protected by the Federal Confidentiality of Alcohol and Drug Abuse Patient Records regulations: The Federal rules restrict any use of the information to criminally investigate or prosecute any alcohol or drug abuse patient.[facility] CenterIn the event this information is protected by the Federal Confidentiality of Alcohol and Drug Abuse Patient Records regulations: The Federal rules restrict any use of the information to criminally investigate or prosecute any alcohol or drug abuse patient.[facility] CenterIn the event this information is protected by the Federal Confidentiality of Alcohol and Drug Abuse Patient Records regulations: The Federal rules restrict any use of the information to criminally investigate or prosecute any alcohol or drug abuse patient.[facility] CenterIn the event this information is protected by the Federal Confidentiality of Alcohol and Drug Abuse Patient Records regulations: The Federal rules restrict any use of the information to criminally investigate or prosecute any alcohol or drug abuse patient.[facility] Reason for Visit (unrecogniz ed section and content) StatusReasonSpecialtyDiagnoses / ProceduresReferred By ContactReferred To ContactClosedRadiology Diagnoses test positive Amenorrhea Procedures US OB LESS THAN 14 WEEKS SINGLE OR FIRST GESTATION Gerri Salmeron MD [address] [place] [address] StatusReasonSpecialtyDiagnoses / ProceduresReferred By ContactReferred To ContactClosedRadiology Diagnoses Encounter for supervision of other normal in second trimester 15 weeks gestation of Procedures US OB 14 PLUS WEEKS SINGLE OR FIRST GESTATION Gerri Salmeron MD [address] [place] [address] StatusReasonSpecialtyDiagnoses / ProceduresReferred By ContactReferred To ContactPending ReviewRadiology Diagnoses Encounter for supervision of other normal in second trimester 25 weeks gestation of Procedures US OB 1 OR MORE FETUS LIMITED Gerri Salmeron MD [address] [place] [address] ReasonCommentsScheduled InductionStatusReasonSpecialtyDiagnoses / Procedures Referred By ContactReferred To Contact Diagnoses Term Gerri Salmeron MD [address] [place] [address] [facility] ReasonCommentsMedical Weight ManagementReasonCommentsPatient EducationAssessment ReasonCommentsNew PatientReasonCommentsNo ShowEGD at [facility]ReasonComments ResearchReasonCommentsEstablished PatientReasonCommentsWeight Loss SurgeryRed/ Malcolm/0 Diet/UHCReasonCommentsPatient EducationReassessmentReasonComments Nurse VisitSpecialtyDiagnoses / ProceduresReferred By ContactReferred To Contact [facility] Diagnoses Encounter for other preprocedural examination Procedures ECG COMPLETE ECG ROUTINE ECG W/LEAST 12 LDS W/I&R Shankar Britt MD [address] [place] [address] Phone: tel: fax: [facility] [place] [address] [place] [address] Referral IDStatusReasonStart DateExpiration DateVisits RequestedVisits [id number] Auto-Generated Referral [id number] QuestionReasonCommentsInsurance AuthorizationReasonCommentsCare Coordinator - OtherReturning Patient's Call ReasonCommentsScheduling SurgeryCare Coordinator - OtherReasonCommentsPre-Op VisitPre-Op LRYGB, DOS 07/06/25ReasonCommentsReassessmentPatient EducationReason CommentsPre-Op VisitReasonCommentsPre-op Visit Ordered Prescriptions (unrec ognized section and content) PrescriptionSigDispensedRefillsStart DateEnd ibuprofen (ADVIL;MOTRIN) 600 MG tablet Take 1 tablet by mouth every 6 hours as needed for Pain 120 tablet docusate sodium (COLACE, DULCOLAX) 100 MG CAPS Take 100 mg by mouth daily 120 capsule ibuprofen (ADVIL;MOTRIN) 600 MG tablet Take 1 tablet by mouth every 6 hours as needed for Pain 120 tablet Care Teams (unrecognized sec tion and content) Team Status: Inactive Member Role Status [facility] Primary Care Provider Active Madina Gomez ProviderActive Team Status: Inactive Member Role Status [facility] Primary Care Provider Active Mabel Blake Provider, Attending ProviderActive Team Status: Active Member Role Status [facility] Primary Care Provider Active Team MemberRelationshipSpecialtyStart DateEnd Date [facility] [address] [place] [address] ReferringInternal Medicine11/05/23Team MemberRelationshipSpecialtyStart DateEnd Date Marta [facility]alTR[facility] [address] [place] [address] ReferringInternal Medicine11/05/23Team MemberRelationshipSpecialtyStart DateEnd Date Marta FatemehhakeemTRINITY [facility] [address] [place] [address] ReferringInternal Medicine11/05/23Team MemberRelationshipSpecialtyStart DateEnd Date Marta Fatemehhakeem [facility] [address] [place] [address] ReferringInternal Medicine11/05/23Team MemberRelationshipSpecialtyStart DateEnd Date Jamal Lozano, SIGNS CLEANER [address] [place] [address] ReferringInternal Medicine11/05/23Team MemberRelationshipSpecialtyStart DateEnd Date Raleigh Cleary DO [address] [place] [address] PCP - [facility]04/14/24 Bernardo Londono DO [address] [place] [address] [facility] - [facility]12/22/24Team MemberRelationshipSpecialtyStart DateEnd Date [facility], ADDICTIONS RECOVERY SPECIALIST.SIGNS CLEANER [address] [place] [address] ReferringInternal Medicine11/05/23Team MemberRelationshipSpecialtyStart DateEnd Date [facility], ADDICTIONS RECOVERY SPECIALIST.SIGNS CLEANER [address] [place] [address] ReferringInternal Medicine11/05/23Team MemberRelationshipSpecialtyStart DateEnd Date [facility], ADDICTIONS RECOVERY SPECIALIST.SIGNS CLEANER [address] [place] [address] ReferringInternal Medicine11/05/23Team MemberRelationshipSpecialtyStart DateEnd Date [facility], ADDICTIONS RECOVERY SPECIALIST.SIGNS CLEANER [address] [place] [address] ReferringInternal Medicine11/05/23Team MemberRelationshipSpecialtyStart DateEnd Date [facility], .SIGNS CLEANER [address] [place] [address] ReferringInternal Medicine11/05/23Team MemberRelationshipSpecialtyStart DateEnd Date [facility], .SIGNS CLEANER [address] [place] [address] ReferringInternal Medicine11/05/23Team MemberRelationshipSpecialtyStart DateEnd Date [facility].SIGNS CLEANER [address] [place] [address] ReferringInternal Medicine11/05/23Team MemberRelationshipSpecialtyStart DateEnd Date [facility], .SIGNS CLEANER ReferringInternal Medicine11/05/23Team MemberRelationshipSpecialtyStart DateEnd Date [facility].SIGNS CLEANER ReferringInternal Medicine11/05/23 Name Effective Dates (start - stop) Status Members No Information Team MemberRelationshipSpecialtyStart DateEnd Date Raleigh Cleary DO [address] [place] [address] PCP - [facility]04/14/24 Bernardo Londono DO [address] [place] [address] PCP - GeneralFamily Medicine12/22/24Team MemberRelationshipSpecialtyStart DateEnd Date Raleigh Cleary, DO [address] [place] [address] PCP - [facility]04/14/24 Bernardo Londono DO [address] [place] [address] [facility] - [facility]12/22/24Team MemberRelationshipSpecialtyStart DateEnd Date Jamal Lozano, ADDICTIONS RECOVERY SPECIALIST.SIGNS CLEANER ReferringInternal Medicine11/05/23Team MemberRelationshipSpecialtyStart DateEnd Date Jamal Lozano, ADDICTIONS RECOVERY SPECIALIST.SIGNS CLEANER ReferringInternal Medicine11/05/23Team MemberRelationshipSpecialtyStart DateEnd Date Jamal Lozano, ADDICTIONS RECOVERY SPECIALIST.SIGNS CLEANER ReferringInternal Medicine11/05/23Team MemberRelationshipSpecialtyStart DateEnd Date Jamal Lozano, ADDICTIONS RECOVERY SPECIALIST.SIGNS CLEANER ReferringInternal Medicine11/05/23Team MemberRelationshipSpecialtyStart DateEnd Date Jamal Lozano, ADDICTIONS RECOVERY SPECIALIST.SIGNS CLEANER ReferringInternal Medicine11/05/[address] [place] [address] Registered DietitianNutrition06/24/25Team MemberRelationshipSpecialtyStart Date End Date Jamal Lozano, ADDICTIONS RECOVERY SPECIALIST.SIGNS CLEANER ReferringDes[facility] Medicine11/05/23 Ramya KearneyNENA [address] [place] [address] Registered DietitianNutrition06/24/25Team MemberRelationshipSpecialtyStart Date End Date Raleigh Cleary DO [address] [place] [address] PCP - [facility]04/14/24 Bernardo Londono, [address] [place] [address] PCP - [facility]12/22/24Team MemberRelationshipSpecialtyStart DateEnd Date Raleigh Cleary DO [address] [place] [address] PCP - [facility]04/14/24 Bernardo Londono, [address] [place] [address] PCP - [facility]12/22/24 FOR RECORDS PERTAINING TO PATIENTS WHO ARE [...] BE BASED ON THE PRIMARY CLINICAL RECORDS. [facility]. provides no warranty or guarantee of the accuracy or completeness of information in this document.
--- OUTSIDE RECORDS SUMMARY | 2025-08-07 07:43 | XMS_ITS | Clinical Summary ---
Author Organization [facility] Address [address] [place] [address] Phone Care Team Providers Care Digital Design Engineer Name Role Phone Unavailable Primary Care Provider Unavailabl e Social History Tobacco UseTypesPacks/DayYears UsedDateSmoking Tobacco: Never Assessed CommentsUnknownSex and Gender InformationValueDate RecordedSex Assigned at Not on fileLegal RyrXcuypl05/26/2022 5:59 PM ESTGender IdentityNot on fileSexual OrientationNot on file Plan of Treatment Not on file
--- OUTSIDE RECORDS SUMMARY | 2025-08-07 07:44 | XMS_ITS | Encounter Summary ---
Author Organization [facility] Address [address] [place] [id number] Care Team Providers Care Diabetes Trainer Name Role Phone Jamal Lozano APRN.SPECIAL PROJECTS COORDINATOR Unavailable Simi Kearney RD Unavailable Source Comments In the event this information is protected by the Federal Confidentiality of Alcohol and Drug AbusePatient Records regulations: The Federal rules restrict any use of the information to criminally investigate or prosecute any alcohol or drug abuse patient.[facility] Encounter Details DateTypeDepartmentCare Team (Latest Contact Info)Osbbchhfvna85/22/2025Travel Social History Tobacco UseTypesPacks/DayYears UsedDateSmoking Tobacco: FormerCigarettesQuit: 06/26/2015Smokeless Tobacco: Former Comments:Quit 6 years ago Alcohol UseStandard Drinks/WeekCommentsNot Currently0 (1 standard drink = 0.6 oz pure alcohol)PHQ-2AnswerDate RecordedPHQ-2 nqiox763/22/2025Area Deprivation IndexAnswerDate RecordedNational Score (1-100), lower number is lower risk53 11/29/2023State Score (1-10), lower number is lower wzuk202ata from: https://www.neighborhoodatlas.[facility].edu/. Last address used for [address]4CommentsNoSex and Gender Information ValueDate RecordedSex Assigned at MmmzaNhknpr80/29/2024 8:30 AM ESTLegal Sex Ntfypn5305/03/2015 6:57 AM EDTGender BkntbohpLxxjbl34/29/2024 8:30 AM ESTSexual KbvlfsotvtmXxmcmocs66/29/2024 8:30 AM ESTdocumented as of this encounter Functional Status * Are you deaf or do you have serious difficulty hearing?AnswerDate of NgzkgshypxLumkrqYf92/16/2025 11:06 AM Avelina Morales RN * Are you blind or do you have serious difficulty seeing, even when wearing glasses?AnswerDate of CofxglpedkQbyctkYu50/16/2025 11:06 AM Avelina Morales RN * Do you have serious difficulty walking or climbing stairs?AnswerDate of HrmxhdjdymBrhjteJp96/16/2025 11:06 AM Avelina Morales RN * Do you have difficulty dressing or bathing?AnswerDate of AssessmentAuthorNo 06/30/2025 11:06 AM Avelina Morales RN * Because of a physical, mental, or emotional condition, do you have difficulty doing errands alone such as visiting a doctor's office or shopping?AnswerDate of FipcvgzoxdOnieesWk02/16/2025 11:06 AM Avelina Morales RN documented as of this encounter Mental Status * Because of a physical, mental, or emotional condition, do you have serious difficulty concentrating, remembering, or making decisions?AnswerEntry Date PbafkvNl52/16/2025 11:06 AM Avelina Morales RN documented in this encounter Plan of Treatment DateTypeDepartmentCare Team (Latest Contact Info)Fhlirftoyvk50/27/2025 11:00 AM EDTOffice Visit General Surgery [address] [place] [address] Randa Boudreaux, LANDSCAPE PHOTOGRAPHER.SPECIAL PROJECTS COORDINATOR [address] [address] [id number] 1 month post op LRYGB 07/06/25 TA09/30/2025 3:00 PM [facility] [address] [place], [place] [id number] Simi Kearney RD [address] [place], [place] [id number] 3 month post op LRYGB 07/06/25 TA10/05/2025 2:30 PM [facility] [address] [place], [place] [id number] Randa Boudreaux APRN.SPECIAL PROJECTS COORDINATOR [address] [id number] 3 month post op LRYGB 07/06/25 TAdocumented as of this encounter Goals GoalPatient Goal TypeAssociated ProblemsRecent ProgressPatient-Stated?Author Bariatric Surgery Lead Medical Technologist Care PlanBariatric Surgery Care CompanionNoDrew Hernandez Autogenerated Goal Care PlanAutogenerated ProblemDrew Dupontdocumented as of this encounter Visit Diagnoses Not on filedocumented in this encounter Additional Health Concerns Active ProblemsNoted DateDiagnosed DateBariatric Surgery Lead Medical Technologist 5Autogenerated Leprwxz1006/17/2025documented as of this encounter Care Teams Team MemberRelationshipSpecialtyStart DateEnd Date Jamal Lozano APRN.SPECIAL PROJECTS COORDINATOR ReferringInternal Medicine11/05/[address] [place], [place] [id number] Registered DietitianNutrition06/24/25documented as of this encounter
--- OUTSIDE RECORDS SUMMARY | 2025-08-07 07:44 | XMS_ITS | Clinical Summary ---
Author Organization [facility] Address [address] [place] [address] Care Team Providers Care Finance Associate Name Role Phone Jamal Lozano LIANNA.CHIEF EXECUTIVE Unavailable [phone] Unavailable Allergies No known active allergies Medications * This document contains information received from the source organization and may not represent a complete record from that organization. MedicationSigDispense QuantityRefillsLast FilledStart DateEnd DateStatus ondansetron orally disintegrating (ZOFRAN ODT) 4 mg disintegrating tablet Indications:Obesity, Class II, BMI 35-39.9,Pre-op testing,Morbid obesity due to excess calories (HCC)Take 1 tablet by mouth every 8 hours as needed for nausea/vomiting for up to 60 doses. 30 tablet 5Active Additional Information Patient not taking.Reported on 07/06/2025 omeprazole (PRILOSEC) 40 mg capsule Indications:Obesity, Class II, BMI 35-39.9,Pre-op testing,Morbid obesity due to excess calories (HCC)Take 1 capsule by mouth once daily. 90 capsule 5Active acetaminophen (TYLENOL) 325 mg cap Take 2 capsules by mouth as needed.Active senna-docusate (SENNA-S) 8.6-50 mg per tablet Indications:Obesity, Class II, BMI 35-39.9,Pre-op testing,Morbid obesity due to excess calories (HCC)Take 1 tablet by mouth once daily. 30 tablet Expired Additional Information Patient not taking.Reported on 07/06/2025 Active Problems ProblemNoted DateDiagnosed DateHigh blood gteztvip45/ Assessment & Plan (06/26/2025 2:05 PM EDT): Assessment: stable, asymptomatic Last 5 Encounter BP Readings: Date: BP: 06/26/2025 109/73 06/23/2025 146/79 01/21/2025 145/78 11/29/2023 144/68 Class 2 obesity with body mass index (BMI) of 37.0 to 37.9 in adult01/07/2024 Assessment & Plan (06/26/2025 2:05 PM EDT): Assessment: Body mass index is 37.09 kg/m??. Anxiety disorder, mgrqgxbihhr66/25/202303/ Assessment & Plan (06/26/2025 2:05 PM EDT): Assessment: denies panic in hospital setting Insulin yodyhwbcya58COS (polycystic ovarian syndrome) Assessment & Plan (06/26/2025 2:05 PM EDT): Assessment: stable, not currently on medication Encounters * This document contains information received from the source organization and may not represent a complete record from that organization. DateTypeDepartmentCare OiveVfkgclriebq01/22/2162Vztezn03/01/2025 11:00 AM EDT Education General Surgery [address] [place] [address] Reassessment; Patient Utbgnzgax40/01/2025 Patient Msg General Surgery [address] [place] [address] Provider, Ccf Nutrition Fvarsgn7307/06/2025 9:00 AM EDTOffice Visit General Surgery [address] [place] [address] Randa Boudreaux APRN.CHIEF EXECUTIVE Encounter for surgical aftercare following surgery of digestive system (Primary Dx); S/P laparoscopic sleeve gastrectomy; Class 2 obesity without serious comorbidity with body mass index (BMI) of 35.0 to 35.9 in adult, unspecified obesity type06/29/2025 7:45 AM EDTAnesthesia Event [facility] Operating Room [id number] [place], [place] [id number] Tito Andujar I, MD 06/29/2025 7:30 AM EDT - 06/29/2025 9:30 AM EDTSurgery [facility] Operating Room [address] [place] [address] Rosa Malcolm MD LAPAROSCOPIC LONGITUDINAL GASTRECTOMY, GASTRIC RESTRICTIVE XYGFDKBPM40/15/2025 6:10 AM EDT - 06/30/2025 12:33 PM EDTHospital Encounter [facility] PK3A [address] [place] [address] Rosa Malcolm MD Morbid obesity due to excess calories (HCC) [E66.01] Discharge Disposition: Home06/29/20253723Xofkaz37/12/2025 1:40 PM EDTPAT Pre Anesthesia [address] [place] [address] 1, [facility] Pre-op examination (Primary Dx); Hypertension, unspecified type; PCOS (polycystic ovarian syndrome); Anxiety disorder, unspecified type; Obesity, Class II, BMI 35-39.06/24/2025 9:00 AM EDTEducation General Surgery [address] [place] [phone] Simi Kearney RD Reassessment; Patient Zysasgute36/10/2025 Patient [facility] [place] [address] [place] [phone] Provider, Ccf Nutrition Rkejnck9406/23/2025 2:00 PM EDTOffice Visit General [facility] [address] [facility] [address] [address] Rosa Malcolm MD Obesity, Class II, BMI 35-39.9 (Primary Dx); Pre-op testing; Morbid obesity due to excess calories (HCC)06/23/20258263Tyltcl22/09/2025 Patient [facility] [place] Surgery [address] [place] [address] Rosa Malcolm MD 06/18/2025 Patient [facility] General Surgery [address] [facility] [address] [place] [phone] Provider, Ccf Post Op Appointment Wblrrpmwbt33/04/2025 Patient [facility] General Surgery [address] [place] [phone] Rosa Malcolm MD 06/23 Visit06/18/2025 Patient [facility] General Surgery [address] [place] [phone] Provider, Ccf Upcoming teoowuvbbjp89/02/2025Patient Update General Surgery [address] [place] [phone] Rosa Malcolm MD 07/06/2025 (LRYGB )06/12/2025[facility] General Surgery [address] [place] [address] Rosa Malcolm MD Scheduling Surgery; Patient Ambassador - Other06/11/2025[facility] General Surgery [address] [facility] [address] [place] [address] Rosa Malcolm MD Patient Ambassador - Other; Returning Patient's Callfrom Last 3 Months Social History Tobacco UseTypesPacks/DayYears UsedDateSmoking Tobacco: FormerCigarettesQuit: 06/26/2015Smokeless Tobacco: Former Tobacco Cessation:Counseling Given: Not Answered Comments:Quit 6 years ago Alcohol UseStandard Drinks/WeekCommentsNot Currently0 (1 standard drink = 0.6 oz pure alcohol)PHQ-2AnswerDate RecordedPHQ-2 dycno833/22/2025Area Deprivation IndexAnswerDate RecordedNational Score (1-100), lower number is lower risk53 11/29/2023State Score (1-10), lower number is lower pupi794ata from: https://www.neighborhoodatlas.medicine.[employer] [facility].edu/. Last address used for ryuzibqbvyw[address]4CommentsNoSex and Gender Information ValueDate RecordedSex Assigned at QkkoiSppngz98/29/2024 8:30 AM ESTLegal Sex Rlzdxb8105/03/2015 6:57 AM EDTGender LfhsxnylPtczdo89/29/2024 8:30 AM ESTSexual JfsizsyybqqIqjiklkc52/29/2024 8:30 AM EST Last Filed Vital Signs Vital SignReadingTime TakenCommentsBlood Zeirlulk744/78007/06/2025 9:10 AM EDT Sbdpy7810/22/2025 9:10 AM YXBAngjupskcjw89.5 ??C (97.7 ??F)07/06/2025 9:10 AM EDTRespiratory Uunx444706/30/2025 11:34 AM EDTOxygen Mslxhcskud49%06/30/2025 11:34 AM EDTInhaled Oxygen Concentration--Akvmlr19.6 kg (201 lb 13.3 oz)07/15/2025 11:04 AM YVUJcipfa548.6 cm (5' 4.02 )07/15/2025 11:04 AM EDTBody Mass Index34.63 07/15/2025 11:04 AM EDT Plan of Treatment DateTypeDepartmentCare Team (Latest Contact Info)Ljmgtbvpenz26/27/2025 11:00 AM EDTOffice Visit General Surgery [address] [place] [address] Randa Boudreaux, CONTROLS ENGINEER.CHIEF EXECUTIVE [address] [address] 1 month post op LRYGB 07/06/25 TA09/30/2025 3:00 PM ESTEducation General Surgery [address] [place] [address] Simi Kearney, RD [address] [place] [address] 3 month post op LRYGB 07/06/25 TA10/05/2025 2:30 [facility] [address] [place] [address] Randa Boudreaux, CONTROLS ENGINEER.CHIEF EXECUTIVE [address] [address] 3 month post op LRYGB 07/06/25 TAHealth MaintenanceDue DateLast DoneComments Annual PCP Team Chronic Disease Visit2011Depression Ynbczqhfk15/28/2011HIV Pumjzuang86/28/2011Hepatitis C Nujtytrjw36/28/2011Hepatitis B Vaccine (1 of 3 - 19+ 3-dose series)2012Cervical Cancer Wvawvcqki09, 12/10/2018Covid-19 Vaccine (1 - season)2025Influenza Vaccine (#1) 2025DTaP,Tdap,Td Vaccine (3 - Td or Tdap), 03/20/2016 HPV UaefxjeXdvoyfsth85/08/2019, 02/07/2019, 12/04/2018 Goals GoalPatient Goal TypeAssociated ProblemsRecent ProgressPatient-Stated?Author Bariatric Surgery Multineedle Shirrer Care PlanBariatric Surgery Care CompanionNoDrew Hernandez Autogenerated Goal Care PlanAutogenerated ProblemNoDrew Hernandez Procedures Procedure NamePriorityDate/TimeAssociated DiagnosisCommentsBASIC METABOLIC PANEL Nlmnhvx3506/30/2025 5:04 AM EDT COMPLETE BLOOD JFHHPExqsvia35/16/2025 5:04 AM EDT SURGICAL HAFHYQXSKTerbisc41/15/2025 9:02 AM EDT Morbid obesity due to excess calories (HCC) CONFIRM BLOOD KXXBAxcagjc32/15/2025 8:06 AM EDT Morbid obesity due to excess calories (HCC) PERIPHERAL IV YSHUMVGRBKgwqasn43/15/2025 7:55 AM EDT XZUDZMHPSKUderbrg17/15/2025 7:53 AM EDT TYPE + FOIZICXdjdjvf93/15/2025 7:51 AM EDT Morbid obesity due to excess calories (HCC) LAPS GSTRC RSTRICTIV PX LONGITUDINAL WZTKUDRZZZV35/15/2025 7:45 AM EDT Morbid obesity due to excess calories (HCC) COMPREHENSIVE METABOLIC TTOCOIwyycbm47/12/2025 2:16 PM EDT Obesity, Class II, BMI 35-39.9 Pre-op testing CBC + OTNZCvoqoxf05/12/2025 2:16 PM EDT Obesity, Class II, BMI 35-39.9 Pre-op testing PT ED BARIATRIC AND BKPAZNAYG27/02/2025 from Last 3 Months Results * (ABNORMAL) COMPLETE BLOOD COUNT (06/30/2025 5:04 AM EDT)ComponentValueRef RangeTest MethodAnalysis TimePerformed AtPathologist XrwovkpmdHUZ33.61(H)3.70 - 11.00 k/uL06/30/2025 5:44 AM [facility] LABORATORYRBC4.323.90 - 5.20 m/uL 06/30/2025 5:44 AM [facility] NOYHFGFEPEZoesxpbuwo01.311.5 - 15.5 g/dL 06/30/2025 5:44 AM [facility] KATKPONAHPKyulcsyskd44.736.0 - 46.0 %06/30/2025 5:44 AM [facility] FCNPOPZMIBMWE06.080.0 - 100.0 fL06/30/2025 5:44 AM [facility] ZXPTYVMCENLFZ10.526.0 - 34.0 pg06/30/2025 5:44 AM [facility] DLEMIDTIRUJPPF77.530.5 - 36.0 g/dL06/30/2025 5:44 AM [facility] RDW-CV12.611.5 - 15.0 %06/30/2025 5:44 AM [facility] LABORATORYPlatelet Count 711834 - 400 k/uL06/30/2025 5:44 AM [facility] DQAYSNZCQIAOF68.29.0 - 12.7 fL 06/30/2025 5:44 AM [facility] LABORATORYAbsolute nRBC<0.01<0.01 k/uL 06/30/2025 5:44 AM [facility] LABORATORYSpecimen (Source)Anatomical Location / LateralityCollection Method / VolumeCollection TimeReceived TimeBloodBLOOD SPECIMEN / UnknownVenipuncture / Jpjjgru3706/30/2025 5:04 AM EDT06/30/2025 5:27 AM EDT Narrative Authorizing ProviderResult TypeResult StatusToms Gold ZAMBRANOLABORATORYFinal ResultPerforming OrganizationAddressCity/State/ZIP CodePhone Number [facility] [address] [place] [address], * (ABNORMAL) BASIC METABOLIC PANEL (06/30/2025 5:04 AM EDT)ComponentValueRef RangeTest MethodAnalysis TimePerformed AtPathologist BxdglzcuwTvtgkje1144 - 99 mg/dL06/30/2025 6:35 AM EDCAPE COD AND [facility]LANDS [facility] LABORATORYComment: The [place] Diabetes Association (ADA) provides guidance for cutoff values for fasting glucose andrandom glucose. The ADA defines fasting as no [...] Standards of Medical Care in Diabetes 2016, [place] Diabetes Association. Diabetes Care. 2016.39(Suppl 1). BUN77 - 21 mg/dL06/30/2025 6:[address] [facility] LABORATORYCreatinine0.850.58 - 0.96 mg/dL06/30/2025 6:[address] [facility] RCZUJBKTSKEftsca073363 - 144 mmol/L 06/30/2025 6:[address] [facility] LABORATORYPotassium3.73.7 - 5.1 mmol/L06/30/2025 6:[address] [facility] BKDQYTXYFFGwwjnzoy13684 - 107 mmol/L06/30/2025 6:35 AM EDT [place] RWFIJIYWBPXG91359 - 30 mmol/L06/30/2025 6:[address] [facility] LAB[facility]ATORY Anion Olb931 - 15 mmol/L06/30/2025 6:35 AM EDTFAIRVIEW LABORATORYCalcium, Total 8.4(L)8.5 - 10.2 mg/dL06/30/2025 6:35 AM EDTFAIRVIEW LABORATORYEstimated Glomerular Filtration Rate93>=60 mL/min/1.73m 06/30/2025 6:[address] [facility] LABORATORYComment:Estimated Glomerular Filtration Rate (eGFR) is calculated using the 2020 CKD-EPI creatinine equation. This equation utilizes serum creatinine, sex, and age as parameters. The creatinine assay has traceable calibration to isotope dilution-mass spectrometry. Refer to KDIGO guidelines for clinical interpretation. In patients with unstable renal function, e.g. those with acute kidney injury, the eGFRmay not accurately reflect actual GFR.Specimen (Source)Anatomical Location / LateralityCollection Method / VolumeCollection TimeReceived TimeBloodBLOOD SPECIMEN / Unknown Venipuncture / Uukqgsf3706/30/2025 5:04 AM EDT06/30/2025 5:42 AM EDT Narrative Authorizing ProviderResult TypeResult StatusToms Gold ZAMBRANOLABORATORYFinal ResultPerforming OrganizationAddressCity/State/ZIP CodePhone Number [facility] [phone] * SURGICAL PATHOLOGY (06/29/2025 9:02 AM EDT)ComponentValueRef RangeTest Method Analysis TimePerformed AtPathologist SignatureCase ReportSurgical Pathology Report ? Case: [id number] ? Authorizing Provider: ??Rosa Malcolm MD ? Collected: ? 06/29/2025 09:02 AM ? Ordering Location: ? [facility] ?Received: ?06/29/2025 09:48 AM ? Operating Room ? Pathologist: ? Refugio Ritter MD ? Specimen: ?Stomach, Resection, Sleeve Gastrectomy ? 07/01/2025 5:28 PM [facility] LABFINAL DIAGNOSISPortion of stomach, excision: - Segment of gastric body/fundus with no diagnostic abnormality. JEL 5:28 PM [facility] at 1728 EDTGross DescriptionA. Stomach, Resection Received fresh designated sleeve gastrectomy is a portion of stomach that measures 17 x 4 x 2.2 cm. The serosal surface is pink-pedersen and slightly ragged. The stomach is opened along the staple line to reveal pink-pedersen gastric mucosa, showing normal rugal folds, with a wall thickness of 0.8 cm. Director Of Epidemiology sections are submitted in one cassette. WE June 29, 2025 11:31 AM Gross examination performed at [facility], [address] [place] [address] 717596807/01/2025 5:28 PM [facility] Clinical HistoryPre-op diagnosis: Morbid obesity due to excess calories (HCC) [E66.01]07/01/2025 5:28 PM EDT [place] LABORATORYPerforming LabDiagnostic interpretation performed at: [facility], [address] [place] [address]# [id number] District Branch Manager: Refugio Ritter MD07/01/2025 5:28 PM [facility] LABDisclaimerLaboratory Developed Test (LDT) Disclaimer: Performance characteristics of immunohistochemical, immunofluorescent, and chromogenic in-situ hybridization tests have been determined by the performing laboratory within the [facility] Department of Pathology and Laboratory Medicine ([facility], [facility], [facility], [facility], [facility], [facility], or [facility]) in a manner consistent with CLIA requirements. One or more of these tests may not have been cleared or approved by the FDA. The [facility] Department of Pathology and Laboratory Medicineis regulated under CLIA as qualified to perform high-complexity testing. These tests are used for clinical purposes. These should not be regarded as investigational or for research. Positive and negative controls stain appropriately.07/01/2025 5:28 PM EDT [place] LABORATORYSpecimen (Source)Anatomical Location / LateralityCollection Method / VolumeCollection TimeReceived TimeTissueSPECIMEN FROM STOMACH / Unknown 06/29/2025 9:02 AM EDT06/29/2025 9:48 AM EDTComment:Pre-op diagnosis: Morbid obesity due to excess calories (HCC) [E66.01] Narrative Authorizing ProviderResult TypeResult StatusToms Gold MDSURGICAL PATHOLOGY Final ResultPerforming OrganizationAddressCity/State/ZIP CodePhone Number [facility] [address] [place] [place] [phone], [facility] [address] [place] [address], * CONFIRM BLOOD TYPE (06/29/2025 8:06 AM EDT)ComponentValueRef RangeTest Method Analysis TimePerformed AtPathologist GwurznsvuASZW71/15/2025 8:58 AM EDT [place] BLOOD BANKRh(D)Mcrutwmo71/15/2025 8:58 AM EDTFSTATE [facility] Specimen (Source)Anatomical Location / LateralityCollection Method / Volume Collection TimeReceived TimeBloodBLOOD SPECIMEN / Wjvfnmt9906/29/2025 8:06 AM EDT06/29/2025 8:12 AM EDTComment:Pre-op diagnosis: Morbid obesity due to excess calories (HCC) [E66.01] Narrative Authorizing ProviderResult TypeResult StatusToms Gold CASSIDYOOD BANKFinal ResultPerforming OrganizationAddressCity/State/ZIP CodePhone Number [facility] [address] [place] [address], * PERIPHERAL IV PLACEMENT (06/29/2025 7:55 AM EDT) Narrative Jacquelyn Anderson AA - 06/29/2025 7:55 AM EDT Jacquelyn Anderson AA 06/29/2025 8:24 AM PIV General Information Procedure Start Time/Medication Administration: 06/29/2025 7:55 AM Procedure End Time: 06/29/2025 7:56 AM Patient Location: ??OR Staffing CAA: Jacquelyn Anderson AA Performed by: CLARKE Preparation Sterility Preparation: hand hygiene performed prior to procedure, surgical cap used, mask used, skin prep agent completely dried prior to procedure ?? Site Prep: Chloraprep Procedure Details Indication: need for IV access Needle Size/Type: 18 gauge angiocath Orientation: ??Left Location: ??Hand Imaging Guidance Used: ??No Authorizing ProviderResult TypeResult StatusPEDRO PABLO Smiley ORDERABLES Final Result * Airway (06/29/2025 7:53 AM EDT) Narrative [...] Indications for airway management: anesthesia Preoxygenated: yes ? anesthesia circuit Method: sleep Difficult Mask: No Final Airway Details Final airway type: endotracheal airwayFinal Endotracheal Airway: ETT Cuffed: yes Successful intubation technique: video laryngoscopy Devices used: [employer] Endotracheal tube insertion site: oral Blade: Alon Blade size: #3 ETT size (mm): 7.0 Measured from: lips Measurement (cm): 21 Placement verified by: chest auscultation and capnometry Cormack-Lehane Classification: grade I - full view of glottis Number of attempts at approach: 1 Airway not difficult Authorizing ProviderResult TypeResult StatusPEDRO PABLO Smiley ORDERABLES Final Result * TYPE + SCREEN (06/29/2025 7:51 AM EDT)ComponentValueRef RangeTest Method Analysis TimePerformed AtPathologist EhrpyukizUKQF92/15/2025 8:58 AM EDT [place] [facility]LOOD BANKRh(D)Legrvnpr66/15/2025 8:58 AM EDTFSTATE [facility] BLO[facility] BANK Antibody MgzmmkLulnmpej42/15/2025 8:58 AM EDTFSTATE REFORM SCHOOL FOR BO[facility] BLOOD BANKType and Screen Wajjalwbhu95/18/2025 23:59006/29/2025 8:58 AM EDCAPE [facility] BANK Specimen (Source)Anatomical Location / LateralityCollection Method / Volume Collection TimeReceived TimeBloodBLOOD SPECIMEN / Qilfbcv5806/29/2025 7:51 AM EDT06/29/2025 8:00 AM EDTComment:Pre-op diagnosis: Morbid obesity due to excess calories (HCC) [E66.01] Narrative Authorizing ProviderResult TypeResult StatusToms Gold MDBLOOD BANKFinal ResultPerforming OrganizationAddressCity/State/ZIP CodePhone Number [facility] [address] * (ABNORMAL) COMPREHENSIVE METABOLIC PANEL (06/26/2025 2:16 PM EDT)Component ValueRef RangeTest MethodAnalysis TimePerformed AtPathologist Signature Protein, Total7.66.3 - 8.0 g/dL06/27/2025 8:51 AM [facility] LABAlbumin4.73.9 - 4.9 g/dL06/27/2025 8:51 AM [facility] LABCalcium, Total9.78.5 - 10.2 mg/dL06/27/2025 8:51 AM [facility] LABBilirubin, Total1.5(H)0.2 - 1.3 mg/dL06/27/2025 8:51 AM [facility] LABAlkaline Dgsgxdwqbna3783 - 123 U/L 06/27/2025 8:51 AM [facility] SLTDBL69(H)13 - 35 U/L 06/27/2025 8:51 AM [facility] WNXLAL655(H)7 - 38 U/L 06/27/2025 8:51 AM [facility] MTMJsqytjb16(L)74 - 99 mg/dL06/27/2025 8:51 AM [facility] LABComment: The [place] Diabetes Association (ADA) provides guidance for cutoff values for fasting glucose andrandom glucose. The ADA defines fasting as no [...] Standards of Medical Care in Diabetes 2016, [place] Diabetes Association. Diabetes Care. 2016.39(Suppl 1). UNV381 - 21 mg/dL06/27/2025 8:51 AM [facility] Creatinine0.820.58 - 0.96 mg/dL06/27/2025 8:51 AM [facility] QPPAmbzuh799113 - 144 mmol/L06/27/2025 8:51 AM [facility] LABPotassium4.43.7 - 5.1 mmol/L06/27/2025 8:51 AM [facility] YNFNdrdhspk59696 - 107 mmol/L06/27/2025 8:51 AM [facility] EBDWX56982 - 30 mmol/L06/27/2025 8:51 AM [facility] LABAnion Cyq440 - 15 mmol/L06/27/2025 8:51 AM [facility] LABEstimated Glomerular Filtration Rate98>=60 mL/min/1.73m 06/27/2025 8:51 AM [facility] LABComment:Estimated Glomerular Filtration Rate (eGFR) is calculated using the 2020 CKD-EPI creatinine equation. This equation utilizes serum creatinine, sex, and age as parameters. The creatinine assay has traceable calibration to isotope dilution- mass spectrometry. Refer to KDIGO guidelines for clinical interpretation. In patients with unstable renal function, e.g. those with acute kidney injury, the eGFRmay not accurately reflect actual GFR.Specimen (Source)Anatomical Location / LateralityCollection Method / VolumeCollection TimeReceived TimeBloodBLOOD SPECIMEN / UnknownVenipuncture / Qifpord0906/26/2025 2:16 PM EDT06/26/2025 2:16 PM EDT Narrative Authorizing ProviderResult TypeResult StatusRanda Janusz CONTROLS ENGINEER.CNPLABORATORY Final ResultPerforming OrganizationAddressCity/State/ZIP CodePhone Number [facility] [address] [facility] [address] [place] [phone], * (ABNORMAL) COMPLETE BLOOD COUNT AND DIFFERENTIAL (06/26/2025 2:16 PM EDT) ComponentValueRef RangeTest MethodAnalysis TimePerformed AtPathologist SignatureWBC8.673.70 - 11.00 k/uL06/26/2025 10:48 PM EDTCGLENBEIGH [facility]PITAL LABRBC5.22(H)3.90 - 5.20 m/uL06/26/2025 10:48 PM EDTCGLENBEIGH [facility] NXCCpzwpimqnv97.911.5 - 15.5 g/dL06/26/2025 10:48 PM EDTCGLENBEIGH HOSPITAL UJZQjiorggbjh88.736.0 - 46.0 %06/26/2025 10:48 PM EDT [facility] VPAMMM22.580.0 - 100.0 fL06/26/2025 10:48 PM EDT [facility] MEPYYW61.526.0 - 34.0 pg06/26/2025 10:48 PM EDT [facility] LVJGXIT57.630.5 - 36.0 g/dL06/26/2025 10:48 PM EDTCGLENBEIGH HOSPITAL LABRDW-CV12.811.5 - 15.0 %06/26/2025 10:48 PM EDTCGLENBEIGH HOSPITAL LABPlatelet Hlyiw691836 - 400 k/uL06/26/2025 10:48 PM EDTCGLENBEIGH HOSPITAL TMPQVY09.79.0 - 12.7 fL06/26/2025 10:48 PM EDTCGLENBEIGH HOSPITAL LABNeutrophils %60.1%06/26/2025 10:48 PM EDTCGLENBEIGH [facility] LABAbs Neut5.211.45 - 7.50 k/06/26/2025 10:48 PM EDTCGLENBEIGH [facility] LABLymphocytes %29.8%06/26/2025 10:48 PM EDTCGLENBEIGH HOS[facility]ITAL LABAbs Lymph2.581.00 - 4.00 k/06/26/2025 10:48 PM EDTCGLENBEIGH [facility] LABMonocytes %6.3%06/26/2025 10:48 PM EDTCGLENBEIGH HOSPITAL LABAbs Mono0.55<0.87 k/uL06/26/2025 10:48 PM EDTCGL[facility]BEIGH [facility] LABEosinophils %2.9%06/26/2025 10:48 PM EDT [facility] LABAbs Eosin0.25<0.46 k/06/26/2025 10:48 PM EDT [facility] LABBasophils %0.7%06/26/2025 10:48 PM EDT [facility] LABAbs Baso0.06<0.11 k/06/26/2025 10:48 PM EDT [facility] LABImmature Granulocytes %0.2%06/26/2025 10:48 PM EDTCGLENBEIGH [facility] LABAbs Immature Gran<0.03<0.10 k/06/26/2025 10:48 PM EDTCGLENBEIGH HOSPITAL LABNRBC0.0/100 WBC06/26/2025 10:48 PM EDTCGLENBEIGH [facility]OS[facility] LABAbsolute nRBC<0.01<0.01 k/06/26/2025 10:48 PM EDTCGLENBEIGH HOS[facility]ITAL LABDiff PtwfXvkh88/12/2025 10:48 PM EDTCGLENBEIGH HOS[facility]ITAL LABSpecimen (Source)Anatomical Location / LateralityCollection Method / VolumeCollection TimeReceived TimeBloodBLOOD SPECIMEN / UnknownVenipuncture / Mgihqpm4506/26/2025 2:16 PM EDT06/26/2025 2:16 PM EDT Narrative Authorizing ProviderResult TypeResult StatusMelfernie Boudreaux CONTROLS ENGINEER.CNPLABORATORY Final ResultPerforming OrganizationAddressCity/State/ZIP CodePhone Number [facility] [address] [facility] [address] [place] [address], * PT ED BARIATRIC AND METABOLIC (06/16/2025)Specimen (Source)Anatomical Location / LateralityCollection Method / VolumeCollection TimeReceived Time06/16/2025 Narrative EARLINE - 06/16/2025 Provider JANUSZ mccauley patient LACEY OZUNA started their Earline on 06-16-2025 and completed it on 06-16-2025 Earline program: GASTRIC BYPASS - LAPAROSCOPIC Authorizing ProviderResult TypeResult StatusMelaniirma Boudreaux CONTROLS ENGINEER.CNPEMMIFinal ResultPerforming OrganizationAddressCity/State/ZIP CodePhone Number EARLINE from Last 3 Months Additional Health Concerns Active ProblemsNoted DateDiagnosed DateBariatric Surgery Multineedle Shirrer 06/17/2025utogenerated Otfkdve6006/17/2025 Insurance * Guarantor: Janet Ozuna TypeRelation to PatientDate of BirthPhone Billing AddressPersonal/OktwmjBgsy1995 [address] [place] [address] Care Teams Team MemberRelationshipSpecialtyStart DateEnd Date Jamal Lozano CONTROLS ENGINEER.CHIEF EXECUTIVE ReferringInternal Medicine11/05/[address] [place] [address] Registered DietitianNutrition06/24/25
--- OUTSIDE RECORDS SUMMARY | 2025-08-07 07:44 | XMS_ITS | Clinical Summary ---
Author Organization [facility] Address [address] [place] [address] Care Team Providers Care Respooler Name Role Phone Claratoño Raleigh Iyer Unavailable [phone] Bernardo Londono DO Primary Care Provider [phone] Allergies No known active allergies Medications MedicationSigDispense QuantityRefillsLast FilledStart DateEnd DateStatus omeprazole (PriLOSEC) [address] capsule Take 40 mg by mouth in the morning.5Active ondansetron ODT (Zofran-ODT) 4 MG disintegrating tablet Take 4 mg by mouth every 8 (eight) hours if azjzhq645Active senna-docusate (Mariya-Colace) 8.6-50 MG tablet Take 1 tablet by mouth in the morning.Expired Active Problems ProblemNoted DateDiagnosed DateHigh serum jhhsrkrebkgm39/22/2024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High serum dehydroepiandrosterone (DHEA)09/27/2023Encounter to establish care08/29/2023nxiety and erspvjdmmc59/15/2023arpal tunnel syndrome 03/01/2023estational diabetes mellitus (GDM) in third trimester ([facility]) 03/01/2023Insulin cqrmqzyvlx48/19/2018Obesity (BMI 30-39.9)08/02/2018 Resolved Problems ProblemNoted DateDiagnosed DateResolved DatePCOS (polycystic ovarian syndrome) Encounters DateTypeDepartmentCare LtxuMbubsggxjqj15/13/2025bstract [facility] [address] [place] [address] Smith Shafer DO 07/27/2025linisync Result Encounter [facility] External Department Unsolicited Smith Shafer DO 07/08/2025 1:20 PM EDTConsult [facility] [address] [place] [address] Smith Shafer DO Pre-op examination; Dyspareunia in female; Hymenal xnibkqf3507/01/2025Patient Outreach [facility] [address] [place] [address] Georgiana Gamez LPN 06/04/2025Telephone [facility] [address] [place] [address] Elvia Rene MA 06/02/2025 11:30 AM EDTProcedure Visit [facility] [address] [place] [phone] Smith Shafer DO Skin tag; Exposure to STD; Vaginal discharge; Hymenal htukmug3306/02/2025External Result Encounter [facility]OMS External Department Unsolicited Smith Shafer DO 05/18/2025Telephone [facility] [place] [facility] [address] [facility] [address] [place] [address] Yumiko Brown DO from Last 3 Months Immunizations ImmunizationAdministration DatesNext DueHPV 9-Uhvkpt6107/22/2019,02/07/2019, 12/04/2018MMR05/06/2022Tdap05/06/2022,03/20/2016 Family History Medical HistoryRelationNameCommentsNo Known ProblemsBrotherNo Known Problems FatherCeliac diseaseMaternal GrandmotherNo Known ProblemsMotherArthritisPaternal GrandmotherDiabetesPaternal GrandmotherHypertensionPaternal GrandmotherNo Known ProblemsSister 1HealthyNo Known ProblemsSister 2HealthyNo Known ProblemsSister 3 HealthyRelationNameStatusCommentsBrother1 BrotherDaughter2 DaughtersFatherAlive Maternal GrandmotherMotherAlivePaternal GrandmotherSister 1AliveSister 2Alive Sister 4WpagtVlw9 Sons Social History Tobacco UseTypesPacks/DayYears UsedDateSmoking Tobacco: FormerCigarettesQuit: 10/15/2019Smokeless Tobacco: Never Tobacco Cessation:Counseling Given: Not Answered Alcohol UseStandard Drinks/WeekCommentsNot Currently0 (1 standard drink = 0.6 oz pure alcohol)Caffeine intake: 1- c green teaAUDIT-CAnswerDate RecordedQ1: How often do you have a drink containing alcohol?Never12/22/2024Q2: How many drinks containing alcohol do you have on a typical day when you are drinking?Patient does not drink12/22/2024Q3: How often do you have six or more drinks on one occasion?Never12/22/2024EducationAnswerDate RecordedWhat is the highest level of school you have completed or the highest degree you have received?High school koeyugyp10/05/2023CommentsNoSex and Gender InformationValueDate Recorded Sex Assigned at BirthNot on fileLegal OvjNuuzql28/15/2023 11:23 PM EDTGender IdentityNot on fileSexual OrientationNot on file Last Filed Vital Signs Vital SignReadingTime TakenCommentsBlood Nbmpmfce964/6609 1:41 PM EDT Yzwlm140212/22/2024 1:31 PM ADCNivqlbhzxft91.1 ??C (98.8 ??F)12/22/2024 1:31 PM EDTRespiratory Suub770210/15/2022 1:32 PM EDTOxygen Dpfpphissl09%12/22/2024 1:31 PM EDTInhaled Oxygen Concentration--Xzslzn10 kg (205 lb)07/08/2025 1:41 PM EDT Nwfqkc176 cm (5' 3 )12/22/2024 1:31 PM EDTBody Mass Index36.31012/22/2024 1:31 PM EDT Plan of Treatment DateTypeDepartmentCare Team (Latest Contact Info)Jbryvfhlqoa34/06/2025 2:30 PM ESTOffice Visit [facility] [address] [place] [address] [place] [address] Belinda Douglas PA [address] [place] [address] [place] [address] Health MaintenanceDue DateLast DoneCommentsPap Smear07/11/17145707/11/2012 Influenza Vaccine (#1)2025ervical Cancer Euqexdqem00/11/2027HPV/Cotest 7010/25/2021 Procedures Procedure NamePriorityDate/TimeAssociated DiagnosisCommentsECG 12-LEAD07/27/2025 8:43 AM EDT RECURRENT VAGINITIS (HTRX)Bzbdbdf0306/02/2025 12:15 PM EDT THINPREP TIS PAP REFLEX HPV MRNA E6/E7 (43325)Jsjqngb2710/25/2021 from Last 3 Months or Most Recently Relevant to Health Maintenance Results * ECG 12-LEAD (07/27/2025 8:43 AM EDT)Anatomical RegionLateralityModalityOther Specimen (Source)Anatomical Location / LateralityCollection Method / Volume Collection TimeReceived Time07/27/2025 8:43 AM EDT Narrative 07/27/2025 12:57 PM EDT [facility] ?[address] ? [place] [address] ? Electrocardiograph Report ? Signed ? Patient: LACEY OZUNA ?MR#: [id number] ?? : 1995 ?Acct:[id number] ?? Age/Sex: 30 / F ?ADM Date: 07/27/25 ?? Loc: PST ? Attending Dr: Smith Shafer D.O. ? Ordering Physician: Smith Shafer D.O. ?? Date of Service: 07/27/25 ?? Procedure(s): ECG 12 lead ?? Accession Number(s): [id number] ? cc: ?[facility] ? Test Date: ?2025-07-27 ?? Pat Name: ? LACEY OZUNA ? Department: ? Room: ? - ?? Gender: ? Female ? Employee Relations Consultant: ? : ?1995 ? Requested By: SMITH SHAFER ?? Order Number: [id number] ?Reading MD: ?? LIDA ??Jaert ARECHIGA ? Measurements ?? Intervals ?[place] ? Rate: ? 51 ? P: ?43 ?? OK: ? 147 ?QRS: ?0 ?? QRSD: ? 92 ? T: ?0 ?? QT: ? 425 ? QTc: ?394 ? Interpretive Statements ?? SINUS BRADYCARDIA ?? Borderline ECG ?? No previous ECG available for comparison ?? Electronically Signed On 07-27-2025 12:57:32 EDT by LIDA ??Jaret ARECHIGA ? Dictated By: ?LIDA ARECHIGA ? Signed By: ?10/13/25 1257 ? DD/ 0843 ? TD/TT: ? Trash Collector: Procedure Note Radiology, Radiologist, - 07/27/2025 [place] [address] Electrocardiograph Report Signed Patient: LACEY OZUNA MMR#: [id number] : 1995Acct:[id number] Age/Sex: 30 / FADM Date: 07/27/25 Loc: [facility] Attending Dr: Smith Shafer D.O. Ordering Physician: Smith Shafer D.O. Date of Service: 07/27/25 Procedure(s): ECG 12 lead Accession Number(s): [id number] cc: [facility] Test Date: 2025-07-27 Pat Name: LACEY OZUNA Department: Room: - Gender: Female Employee Relations Consultant: : 1995 Requested By: SMITH SHAFER Order Number: [id number] Reading MD: LIDA ARECHIGA M.D. Measurements Intervals [place] Rate: 51 P: 43 OK: 147 QRS: 0 QRSD: 92 T: 0 QT: 425 QTc: 394 Interpretive Statements SINUS BRADYCARDIA Borderline ECG No previous ECG available for comparison Electronically Signed On 07-27-2025 12:57:32 EDT by LIDA ARECHIGA M.D. Dictated By: LIDA ARECHIGA Signed By:07/27/25 1257 DD/ 0843 TD/TT: Trash Collector: Authorizing ProviderResult TypeResult StatusCorey Soni DOCLINISYNC IMAGINGFinal Result * (ABNORMAL) RECURRENT VAGINITIS (HTRX) (06/02/2025 12:15 PM EDT)ComponentValue Ref RangeTest MethodAnalysis TimePerformed AtPathologist SignatureATOPOBIUM DKZJNIL60.277(A)19.961 - 24.689 ppm06/03/2025 8:06 AM EDTHealthTrackRx at LabPortATOPOBIUM VAGINAEDetected(A)19.961 - 24.689 ppm06/03/2025 8:06 AM EDT [facility],3 (BACTERIAL VAGINOSIS ASSOCIATED BACTERIA 2, 3); MOBILUNCUS NPD110.961 - 24.689 ppm06/03/2025 8:06 AM EDTHealthTrackRx at [facility] HospitalBVAB 2,3 (BACTERIAL VAGINOSIS ASSOCIATED BACTERIA 2, 3); MOBILUNCUS SPP Not Fbdjwzre58.961 - 24.689 ppm06/03/2025 8:06 AM EDTHealthTrackRx at [facility] KAYE ALBICANS, PARAPSILOSIS, SKMVPMAAEI441.000 - 30.347 ppm06/03/2025 8:06 AM EDTHealthTrackRx at [facility] HospitalCANDIDA ALBICANS, PARAPSILOSIS, TROPICALISNot Tufemkxn14.000 - 30.347 ppm06/03/2025 8:06 AM EDTHealthTrackRx at [facility] KAYE UABNCECB639.000 - 31.618 ppm06/03/2025 8:06 AM EDTHealthTrackRx at [facility] HospitalCANDIDA GLABRATANot Cahxxjxc93.000 - 31.618 ppm06/03/2025 8:06 AM EDT [facility] HospitalCANDIDA OCCEED660.000 - 30.873 ppm06/03/2025 8:06 AM EDTHealthTrackRx at [facility] HospitalCANDIDA KRUSEINot Upjnzflu01.000 - 30.873 ppm 06/03/2025 8:06 AM EDTHealthTrackRx at [facility] HospitalCHLAMYDIA SSKEOCZXJNX041.000 - 31.586 ppm06/03/2025 8:06 AM EDTHealthTrackRx at [facility] HospitalCHLAMYDIA TRACHOMATIS Not Rpzacgad56.000 - 31.586 ppm06/03/2025 8:06 AM EDTHealthTrackRx at [facility] GARDNERELLA CIBMKZCQL289.961 - 24.689 ppm06/03/2025 8:06 AM EDTHealthTrackRx at [facility] HospitalGARDNERELLA VAGINALISNot Jtgsiocx81.961 - 24.689 ppm06/03/2025 8:06 AM EDTHealthTrackRx at [facility] (TYPES 1, 2)019.961 - 24.689 ppm 06/03/2025 8:06 AM EDTHealthTrackRx at [facility] HospitalMELASPOASIS BEHAVIORAL HEALTH HOSPITALRA (TYPES 1, 2)Not Sdrceosl31.961 - 24.689 ppm06/03/2025 8:06 AM EDTHealthTrackRx at [facility]Four [facility] NEISSERIA KPHJHIGEDVN868.000 - 32.587 ppm06/03/2025 8:06 AM EDTHealthTrackRx at [facility] HospitalNEISSERIA GONORRHOEAENot Tkvzdzcq70.000 - 32.587 ppm06/03/2025 8:06 AM EDTHealthTrackRx at [facility] HospitalTRICHOMONAS YBBQGBNOJ106.000 - 31.995 ppm 06/03/2025 8:06 AM EDTHealthTrackRx at [facility] HospitalTRICHOMONAS VAGINALISNot Ggejvuue34.000 - 31.995 ppm06/03/2025 8:06 AM EDTHealthTrack[facility] at [facility] MYCOPLASMA ASKDGSGQKG928.961 - 24.689 ppm06/03/2025 8:06 AM EDTHealthTrackRx at [facility] HospitalMYCOPLASMA GENITALIUMNot Kaaxqbtz94.961 - 24.689 ppm06/03/2025 8:06 AM EDTHealthTrackRx at [facility] HospitalSpecimen (Source)Anatomical Location / LateralityCollection Method / VolumeCollection TimeReceived TimeTissue 06/02/2025 12:15 PM EDT06/03/2025 2:19 AM EDT Narrative Authorizing ProviderResult TypeResult StatusCorey Soni DOLAB BLOOD ORDERABLES Final ResultPerforming OrganizationAddressCity/State/ZIP CodePhone Number [facility] [address] [address] * THINPREP TIS PAP REFLEX HPV MRNA E6/E7 (00312) (10/25/2021)ComponentValueRef RangeTest MethodAnalysis TimePerformed AtPathologist SignatureCLINICAL INFORMATION:None givenNOMS LEGACY EXTERNAL LABLMP:NONE GIVENNOMS LEGACY EXTERNAL LABPREV. PAP:2,020NOMS LEGACY EXTERNAL LABPREV. BX:NONE GIVENNOMS LEGACY EXTERNAL LABSOURCE:Cervix, EndocervixNOMS LEGACY EXTERNAL LABSTATEMENT OF ADEQUACY:SEE COMMENTNOMS LEGACY EXTERNAL LABComment: Satisfactory for evaluation. Endocervical/transformation zone component present. INTERPRETATION/RESULT:Negative for intraepithelial lesion or malignancy.[facility] EXTERNAL LABCOMMENT:This Pap test has been evaluated with computer assisted technology.[facility] LABCYTOTECHNOLOGIST:SEE COMMENTNOMS LEGACY EXTERNAL LABComment: DEWAYNE GUTHRIE(ASCP) CT screening location: [facility], [address] [place] [address]. COMMENTSEE COMMENTNOMS LEGACY EXTERNAL LABComment: EXPLANATORY NOTE: The Pap is a screening test for cervical cancer. It is not a diagnostic test and is subject to false negative and false positive results. It is most reliable when a satisfactory sample, regularly obtained, is submitted with relevant clinical findings and history, and when the Pap result is evaluated along with historic and current clinical information. Specimen (Source)Anatomical Location / LateralityCollection Method / Volume Collection TimeReceived Time10/25/2021 Narrative Authorizing ProviderResult TypeResult StatusKatenrique CHRISTOPHER LABSFinal ResultPerforming OrganizationAddressCity/State/ZIP CodePhone Number [facility] from Last 3 Months or Most Recently Relevant to Health Maintenance Insurance Care Teams Team MemberRelationshipSpecialtyStart DateEnd Date Raleigh Cleary DO [address] [place] [id number] PCP - [facility]04/14/24 Bernardo Londono DO [address] [facility] [address] [place] [address] PCP - [facility]12/22/24
--- OUTSIDE RECORDS SUMMARY | 2025-08-07 07:44 | XMS_ITS | Encounter Summary ---
Author Organization [facility] Address [address] [facility] [place] [address] Care Team Providers Care Regional Agronomist Name Role Phone Raleigh Cleary DO Unavailable [phone] Bernardo Londono DO Primary Care Provider [phone] Encounter Details DateTypeDepartmentCare Team (Latest Contact Info)Iavsamrdgbl23/13/2025bstract [facility] [address] [place] [address] Yadiel Shafer DO [address] Nicholas Leonardo, [facility] Social History Tobacco UseTypesPacks/DayYears UsedDateSmoking Tobacco: FormerCigarettesQuit: [...] the highest degree you have received?High school rraiwosa01/05/2023Comments NoSex and Gender InformationValueDate RecordedSex Assigned at BirthNot on file Legal TqjEsbujo01/15/2023 11:23 PM EDTGender IdentityNot on fileSexual OrientationNot on filedocumented as of this encounter Plan of Treatment DateTypeDepartmentCare Team (Latest Contact Info)Efpesdtxsds41/06/2025 2:30 PM ESTOffice Visit [facility] [address] [facility] [place] [address] Belinda Douglas PA [address] [facility] [place] [address] documented as of this encounter Visit Diagnoses Not on filedocumented in this encounter Care Teams Team MemberRelationshipSpecialtyStart DateEnd Date Raleigh Cleary DO [address] [address] PCP - [facility]04/14/24 Bernardo Londono DO [address] [address] PCP - [facility]12/22/24documented as of this encounter
[2025-08-07 07:47] LABS: Hematocrit 42.7 % (36.0-48.0); Hemoglobin 13.8 g/dL (12.0-16.0); Immature Granulocytes Abs Auto 0.01 10^3/uL (0.00-0.03); Immature Granulocytes Pct Auto 0.1 % (0.0-0.5); Lymphocytes Absolute Auto 3.2 10^3/uL (1.2-3.8); Mean Corpuscular HGB Conc 32.3 g/dL (29.9-35.2); Mean Corpuscular Hemoglobin 28.0 pg (26.7-34.0); Mean Corpuscular Volume 86.8 fL (81.0-99.0); Platelet Count 237 10^3/uL (150-450); Red Blood Count 4.92 10^6/uL (4.20-5.40); White Blood Count 7.1 10^3/uL (4.0-11.0)
[2025-08-07 07:50] VITALS: BP 124/63; PULSE 78; TEMP 36.1; O2SAT 98; BMI 34.7
[2025-08-07 09:51] VITALS: BP 102/50; PULSE 64; TEMP 36.7; O2SAT 93
--- NOTE | 2025-08-07 09:51 | PM.ONB ---
Brief Operative Note Date of procedure: 08/07/25 Pre-op diagnosis general: dysparuenia Post-op diagnosis: same as pre-op Procedure: NAME OF PROCEDURE: [removal of multiple hymenal remnants] PROCEDURE: The patient was taken back to the Operating Room where she was prepped and draped in normal sterile fashion after being placed under general anesthesia without difficulty. She was also placed in the dorsal lithotomy position. the hymenal remanents where identified mainly posterior introitus, they remanent was tented up and incised using metzenbaum scissors, the base of coagulated using the bovie, excellent hemostasis, sponge lap and needle counts correct times 2, pt taken to recovery in stable in condition Anesthesia: MAC Surgeon: Yadiel Shafer Estimated blood loss (mL): 5 Pathology: none sent Condition: stable Disposition: PACU Urinary Catheter Management Urinary Catheter Management Urethral: Cath placed during this visit: no
[2025-08-07 10:05] VITALS: BP 106/50; PULSE 58; O2SAT 93
[2025-08-07 10:20] VITALS: BP 102/57; PULSE 55; O2SAT 95
[2025-08-07 10:50] VITALS: BP 109/62; PULSE 58; O2SAT 99
== END 2025-08-07 11:05 | disposition home or self-care (01) ==
PROVIDERS: Visit Provider Obstetrics & Gynecology
PROC: (CPT 940; principal; 2025-08-07 08:55)
DX: N89.8 Other specified noninflammatory disorders of vagina (principal); N94.10 Unspecified dyspareunia; Z87.891 Personal history of nicotine dependence; F41.9 Anxiety disorder, unspecified; F32.A Depression, unspecified
CPT/HCPCS: 56700; 36415; 84702; 85025; J2704; J3010